=== PATIENT | male | born 1955 | race Caucasian/White ===

== ENCOUNTER 2017-03-15 04:06 | Inpatient (IN) | payer OTHER ==
--- NOTE | 2017-03-15 04:25 | C.PDOC ---
History Of Present Illness pt presents with abdominal pain, coffee ground emesis. state she has not had a bowel movement in 7 days. Speaking in complete sentences. no f/ Time Seen by Provider: 03/15/17 04:25 History Per: Patient History/Exam Limitations: no limitations Onset/Duration Of Symptoms: Days (7) Current Symptoms Are (Timing): Worse Number Of Bleeding Episodes: Unknown Amount of Blood Loss: Medium Severity: Severe Pain Scale Rating Of: 8 Quality Of Discomfort: Dull, Aching, Cramping Associated Symptoms: Nausea, Vomiting, Coffee Ground material Modifying Factors: None Recent travel outside of the [place]: No Additional History Per: Family Past Medical History Reviewed: Historical Data, Nursing Documentation, Vital Signs Vital Signs: Last Vital Signs Temp 97.5 F L 03/15/17 04:25 Pulse 120 H 03/15/17 05:47 Resp 18 03/15/17 05:47 BP 151/102 H 03/15/17 05:47 Pulse Ox 98 03/15/17 05:47 Family History: States: No Known Family Hx - Social History Hx Alcohol Use: Yes Hx Substance Use: No - Immunization History Hx Tetanus Toxoid Vaccination: No Hx Influenza Vaccination: No Hx Pneumococcal Vaccination: No Review Of Systems Constitutional: Negative for: Fever, Chills Eyes: Positive for: Redness Cardiovascular: Negative for: Chest Pain Respiratory: Negative for: Shortness of Breath Gastrointestinal: Positive for: Nausea, Vomiting, Abdominal Pain Genitourinary: Negative for: Dysuria Musculoskeletal: Negative for: Back Pain Skin: Negative for: Rash Neurological: Negative for: Weakness Psych: Positive for: Anxiety Physical Exam - Physical Exam Appears: In Acute Distress Skin: Warm, Dry, Pale Head: Normacephalic Eye(s): bilateral: Other (erythematous conjunctiva) Oral Mucosa: Dry Neck: Supple Chest: Symmetrical Cardiovascular: Rhythm Regular (tachy) Respiratory: No Rales, No Rhonchi, No Wheezing Gastrointestinal/Abdominal: Bowel Sounds (tympanic to percussion), Tenderness, Distention, No Guarding, No Rebound, Other (midline old healed surgical scar) Back: Normal Inspection Extremity: Normal ROM Extremity: Bilateral: Atraumatic Pulses: Left Dorsalis Pedis: Normal, Right Dorsalis Pedis: Normal Neurological/Psych: Oriented x3, Normal Speech, Normal Cognition Gait: Steady ED Course And Treatment - Laboratory Results Result Diagrams: 03/15/17 04:47 03/15/17 04:47 ECG: Interpreted By Me, Viewed By Me ECG Rhythm: Sinus Tachycardia (127), Nonspecific Changes O2 Sat by Pulse Oximetry: 97 Pulse Ox Interpretation: Normal - Radiology CXR: Interpreted by Me, Viewed By Me Progress Note: spoke with dr martniez - icu-will come and see the pt. spoke with residential property tax appraiser - will come and see the pt Critical Care Time - Critical Care Note Total Time (in mins): 30 Documented critical care: time excludes all time spent performing seperately billable procedures. Disposition Discussed With DrDionisio: Ramos Gomez Comment: accepted the pt on his service and took over the care at 6:20 AM Doctor Will See Patient In The: ED Counseled Patient/Family Regarding: Studies Performed, Diagnosis - Disposition Disposition: HOSPITALIZED Disposition Time: 04:25 Condition: CRITICAL - POA Present On Arrival: None - Clinical Impression Clinical Impression: Gastrointestinal hemorrhage, Abdominal pain, Metastatic colon cancer to liver, SBO (small bowel obstruction) Decision To Admit - . Patient Diagnosis: Gastrointestinal hemorrhage, Abdominal pain
[2017-03-15] MEDS ORDERED: Pantoprazole 80 MG in Sodium Chloride 0.9% 100 ML IV STA (04:26)
[2017-03-15] MEDS ORDERED: Sodium Chloride 0.9% 1,000 ML IV ONE (04:26)
[2017-03-15 04:27] VITALS: BMI 32.6
[2017-03-15] MEDS ORDERED: Sodium Chloride 0.9% 1,000 ML ONE (04:35)
[2017-03-15] MEDS ORDERED: Sodium Chloride 0.9% 2,000 ML IV ONE (04:36)
[2017-03-15 04:53] LABS: BASO # 0.1 K/uL (0.0-0.2); BASO % 0.3 % (0.0-2.0); HEMOGLOBIN 15.1 g/dL (12.0-18.0); LYMPH # 2.1 K/uL (1.0-4.3); LYMPH % 8.8 % (20.0-40.0); MEAN CELL VOLUME 73.8 fL (80.0-94.0); MEAN CORPUSCULAR HEMOGLOBIN 23.8 pg (27.0-31.0); MEAN CORPUSCULAR HGB CONC 32.3 g/dL (33.0-37.0); MONO # 2.1 K/uL (0.0-0.8); MONO % 9.1 % (0.0-10.0); NEUT # 19.2 K/uL (1.8-7.0); NEUT % 81.8 % (50.0-75.0); NRBC % 0.1 % (0.0-2.0); PLATELET COUNT 489 K/uL (130-400); RBC 6.33 Mil/uL (4.40-5.90); RED CELL DISTRIBUTION WIDTH 17.7 % (11.5-14.5); WHITE BLOOD COUNT 23.5 K/uL (4.8-10.8)
[2017-03-15 04:56] LABS: INR 1.2; PROTHROMBIN TIME 13.9 SECONDS (9.7-12.2)
[2017-03-15 05:02] LABS: ALT/SGPT 51 U/L (21-72); AST/SGOT 67 U/L (17-59); BLOOD UREA NITROGEN 35 mg/dL (9-20); CALCIUM 9.1 mg/dl (8.6-10.4); GFR AFRICAN-AMERICAN > 60; GFR NON-AFRICAN AMERICAN > 60
[2017-03-15 05:07] LABS: ALB/GLOB RATIO 0.8 (1.0-2.1)
[2017-03-15] MEDS ORDERED: Pantoprazole 80 MG in Sodium Chloride 0.9% 100 ML IVP SCH (05:30)
[2017-03-15] MEDS ORDERED: Iodixanol 320 MG/ML 100 ML BOTTLE IV ONE (05:34)
[2017-03-15 05:38] LABS: BANDS 9 % (0-2); LYMPHOCYTE 9 % (20-40); MONOCYTE 9 % (0-10); NEUTROPHIL 73 % (50-75); PLATELET ESTIMATE SLIGHTLY INCREASED (NORMAL); TOTAL CELLS COUNTED 100
[2017-03-15 05:39] LABS: ANISOCYTOSIS SLIGHT; TOXIC GRANULATION PRESENT
[2017-03-15 05:39] LABS: VENOUS BLOOD GAS BASE EXCESS 4.8 mmol/L (0.0-2.0); VENOUS BLOOD GAS PCO2 45 mmHg (40-60); VENOUS BLOOD GAS PO2 25 mm/Hg (30-55); VENOUS BLOOD PH 7.43 (7.32-7.43)
[2017-03-15] MEDS ORDERED: Ciprofloxacin 400mg/200ml D5W 400 MG/200 ML BAG IVPB STA (05:42)
[2017-03-15] MEDS ORDERED: metroNIDAZOLE IV 500 mg/100 ml 500 MG/100 ML BAG IVPB SCH (05:45)
[2017-03-15] MEDS ORDERED: metroNIDAZOLE IV 500 mg/100 ml 500 MG/100 ML BAG IVPB STA (05:58)
--- NOTE | 2017-03-15 06:42 | CP.PCM.CON ---
History of Present Illness - History of Present Illness History of Present Illness: 62 M with h/o back injury fall, chronic weakness secondary to fall, abdominal surgery, s/p ivc filter, h/o glaucoma, h/o skin grafting, patient has chronic constipation, but last 2 wks worsened abdominal distension, vomiting small amount 1 wk, no bm or gas x 1wk, the vomiting turned black this morning and hence presented to the ER. Black vomit including ED NG suction about 500-600ml. Hypertensive, tachycardic in ER in 130s improved with ivf, WBC 22K, maintained hemoglobin 15, but total prot of 9 suggesting hemoconcentration. ABD/Pelvis CT done just now reviewed by me shows, obstruction at lower descending colon, with distended rest of colon and small bowel, lives shows multiple lesions suggesting mets, and lung shows multiple nodules suggesting mets as well, pending radiology report. PMH as above Allergies mentioned PCN in the childhood but has got pcn adult roth with no reaction Social live with , unemployed, denies alcohol, drugs, smoking Meds for glaucoma Family history not contributory. Review of Systems - Review of Systems All systems: reviewed and no additional remarkable complaints except (HPI) Past Patient History - Past Social History Smoking Status: Never Smoked Alcohol: None Home Situation {Lives}: With Family Domestic Violence: Negative - HEENT Hx Glaucoma: Yes - PSYCHIATRIC Hx Substance Use: No - SURGICAL HISTORY Hx Surgeries: Yes (SEE COMMENT) Hx Orthopedic Surgery: Yes (BILAT WRIST) Other/Comment: left knee degloving, exploratory lap - ANESTHESIA Hx Anesthesia: Yes Hx Anesthesia Reactions: No Hx Malignant Hyperthermia: No Meds Allergies/Adverse Reactions: Allergies Allergy/AdvReac Type Severity Reaction Status Date / Time Penicillins Allergy RASH Verified 03/15/17 04:29 - Medications Medications: Current Medications Pantoprazole Sodium 80 mg/ (Sodium Chloride) 100 mls @ 10 mls/hr IVP .Q10H MARC PRN Reason: 8 MG/HR Last Admin: 03/15/17 05:56 Dose: 10 mls/hr Ciprofloxacin (Cipro 400mg/200ml Dsw) 400 mg in 200 mls @ 133.333 mls/hr IVPB STAT STA Stop: 03/15/17 07:11 Metronidazole (Flagyl) 500 mg in 100 mls @ 100 mls/hr IVPB STAT STA Stop: 03/15/17 06:57 Last Admin: 03/15/17 06:17 Dose: 100 mls/hr Physical Exam - Additional Findings Additional findings: * HEENT UVALDO, ng tube with black liquid * Neck supple * Chest rales few and ronchi in the bases * PA distended midline scar, nontender, bs minimal * Ext no edema * Skin normal turgor * [employer]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 oriented x3 no fnd Results - Vital Signs Recent Vital Signs: Last Vital Signs Temp 97.5 F L 03/15/17 04:25 Pulse 120 H 03/15/17 05:47 Resp 18 03/15/17 05:47 BP 151/102 H 03/15/17 05:47 Pulse Ox 98 03/15/17 05:47 - Labs Result Diagrams: 03/15/17 04:47 03/15/17 04:47 Labs: Laboratory Results - last 24 hr 03/15/17 03/15/17 03/15/17 04:47 04:47 04:47 WBC 23.5 H RBC 6.33 H Hgb 15.1 Hct 46.7 MCV 73.8 L MCH 23.8 L MCHC 32.3 L RDW 17.7 H Plt Count 489 H MPV 8.0 Neut % (Auto) 81.8 H Lymph % (Auto) 8.8 L [place] % (Auto) 9.1 Eos % (Auto) 0.0 Baso % (Auto) 0.3 Neut # 19.2 H Lymph # 2.1 [place] # 2.1 H Eos # 0.0 Baso # 0.1 Neutrophils % (Manual) 73 Band Neutrophils % 9 H Lymphocytes % (Manual) 9 L Monocytes % (Manual) 9 Toxic Granulation Present Platelet Estimate Slightly increased H Anisocytosis (manual) Slight PT 13.9 H INR 1.2 APTT 38 H pO2 VBG pH VBG pCO2 VBG HCO3 VBG Total CO2 VBG O2 Sat (Calc) VBG Base Excess VBG Potassium Glucose Lactate Sodium 133 Potassium 3.8 Chloride 91 L Carbon Dioxide 27 Anion Gap 19 BUN 35 H Creatinine 1.0 Est GFR ( Amer) > 60 Est GFR (Non-Af Amer) > 60 Random Glucose 158 H Calcium 9.1 Total Bilirubin 1.0 AST 67 H ALT 51 Alkaline Phosphatase 344 H Total Protein 9.0 H Albumin 4.0 Globulin 5.0 H Albumin/Globulin Ratio 0.8 L Venous Blood Potassium Gastric Occult Blood 03/15/17 03/15/17 05:21 05:35 WBC RBC Hgb Hct MCV MCH MCHC RDW Plt Count MPV Neut % (Auto) Lymph % (Auto) [place] % (Auto) Eos % (Auto) Baso % (Auto) Neut # Lymph # [place] # Eos # Baso # Neutrophils % (Manual) Band Neutrophils % Lymphocytes % (Manual) Monocytes % (Manual) Toxic Granulation Platelet Estimate Anisocytosis (manual) PT INR APTT pO2 25 L VBG pH 7.43 VBG pCO2 45 VBG HCO3 27.3 VBG Total CO2 31.3 H VBG O2 Sat (Calc) 46.8 VBG Base Excess 4.8 H VBG Potassium 4.3 Glucose 105 Lactate 3.8 H Sodium 139.0 Potassium Chloride 103.0 Carbon Dioxide Anion Gap BUN Creatinine Est GFR ( Amer) Est GFR (Non-Af Amer) Random Glucose Calcium Total Bilirubin AST ALT Alkaline Phosphatase Total Protein Albumin Globulin Albumin/Globulin Ratio Venous Blood Potassium 4.3 Gastric Occult Blood Positive H Assessment & Plan - Assessment and Plan (Free Text) Assessment: * Obstructing descending colon mass, with mets to liver, probable lung * Suspected UGI bleeding, black not fresh * H/o abd surg * S/p IVC filter * Pending report from radiology Plan: * PPI, NG suction * Surgery will probably need diverting colostomy, biospy if possible of mass, ? liver * IVF * Empiric abx * Hematology, GI consult * DVT prophylaxis with scd due to UGI bleeding. * See orders for detail.
[2017-03-15] MEDS: Potassium Ch 20mEq in D5W 1,000 ML IV SCH ×3 (07:05→22:54)
--- NOTE | 2017-03-15 07:06 | CT ---
EXAM: CT Abdomen and Pelvis With Intravenous Contrast CLINICAL HISTORY: 62 years old, male; Pain; Abdominal pain and other: Abd pain, distension, constipation , ugi bleed; Generalized TECHNIQUE: Axial computed tomography images of the abdomen and pelvis with intravenous contrast. All CT scans at this facility use one or more dose reduction techniques, viz.: automated exposure control; ma/kV adjustment per patient size (including targeted exams where dose is matched to indication; i.e. head); or iterative reconstruction technique. 735 images are submitted. Coronal and sagittal reformatted images were created and reviewed. CONTRAST: 100 mL of [id number] administered intravenously. COMPARISON: No relevant prior studies available. FINDINGS: Lower thorax: There are bilateral numerous pulmonary nodules representing hematogenous spread of infection/fungal infection or metastasis. There are small areas of ill-defined patchy parenchymal infiltrates and confluent consolidation within both the lungs. Correlation with patient's pulmonary history is recommended. Left prevascular paratracheal and right more than left hilar lymph nodes. These findings can represent infectious inflammatory or metastatic etiology. There is feeding tube within the thick walled esophagus and moderate hiatal hernia.Correlation with clinical data is recommended to evaluate for esophagitis/gastritis. ABDOMEN: Liver: Heterogeneous appearance to the liver with multiple ill-defined masses suspicious for hepatic metastasis versus hepatocellular carcinoma. Gallbladder and bile ducts: Unremarkable. No ductal dilation. Pancreas: Unremarkable. No mass. No ductal dilation. Spleen: Unremarkable. No splenomegaly. Adrenals: Unremarkable. No mass. Kidneys and ureters: There are renal hypodensities too small to characterize. No hydronephrosis. Stomach and bowel: There are dilated fluid filled small bowel loops with air fluid level measuring 3.8 cm with mesenteric fluid with relative change in caliber of the small bowel in the midabdomen representing partial obstruction versus ileus or enteritis. Correlation with patient's obstructive symptoms is recommended. There is a large amount of stool in the colon with colonic wall thickening and left lower quadrant colonic mass representing nonspecific colitis or stool related colitis. There is stool like appearance to the distal small bowel. This may represent slow transit. Nonspecific colonic thickening with diverticulosis. Appendix: Normal appendix. PELVIS: Bladder: Bladder distention. Correlation with patient's voiding status is recommended. Reproductive: Enlarged prostate gland with calcification. ABDOMEN and PELVIS: Intraperitoneal space: Unremarkable. No free air. No significant fluid collection. Bones/joints: Left femoral intramedullary catarina and screw fixation. The left femoral hardware is incompletely visualized. There are anterior flowing osteophytes bridging more than 4 vertebral bodies suggestive of dish. No acute fracture. No dislocation. Soft tissues: Bilateral inguinal herniation of fat. Vasculature: Infrarenal IVC filter. No abdominal aortic aneurysm. Lymph nodes: There is left lower quadrant colonic hyperdense mass measuring 4.6 x 5.1 x 7.0 cm suspicious for colon cancer with partial or early colonic obstruction. There are paracolic mesenteric soft tissue density representing omental infiltration with carcinomatosis versus lymph nodes. There is left iliac chain lymph node seen on image 73 series 601 and on image 83 series 2 measuring 2.6 cm x 3.2 cm suspicious for metastatic lymph node. Tubes, lines and devices: The feeding tube is in the gastric fundus. IMPRESSION: 1. There is left lower quadrant colonic hyperdense mass measuring 4.6 x 5.1 x 7.0 cm suspicious for colon cancer with partial or early colonic obstruction. There are paracolic mesenteric soft tissue density representing omental infiltration with carcinomatosis versus lymph nodes. 2. There are dilated fluid filled small bowel loops with air fluid level measuring 3.8 cm with mesenteric fluid with relative change in caliber of the small bowel in the midabdomen representing partial obstruction versus ileus or enteritis. Correlation with patient's obstructive symptoms is recommended. 3. There is a large amount of stool in the colon with colonic wall thickening and left lower quadrant colonic mass representing nonspecific colitis or stool related colitis. 4. There are bilateral numerous pulmonary nodules representing hematogenous spread of infection/fungal infection or metastasis. There are small areas of ill-defined patchy parenchymal infiltrates and confluent consolidation within both the lungs. Correlation with patient's pulmonary history is recommended. 5. Left prevascular paratracheal and right lung and left hilar lymph nodes. These findings can represent infectious inflammatory or metastatic etiology. 6. Heterogeneous appearance to the liver with multiple ill-defined masses suspicious for hepatic metastasis versus hepatocellular carcinoma. 7. There is feeding tube within the thick walled esophagus and moderate hiatal hernia.Correlation with clinical data is recommended to evaluate for esophagitis/gastritis. 8. There is left iliac chain lymph node seen on image 73 series 601 and on image 83 series 2 measuring 2.6 cm x 3.2 cm suspicious for metastatic lymph node. 9. Left prevascular paratracheal and right more than left hilar lymph nodes. These findings can represent infectious inflammatory or metastatic etiology. Correlation with internal medicine oncology history evaluation and further workup or followup as recommended by patient's clinical data. CRITICAL RESULT: The study was personally discussed on the telephone with [Chapo Hopkins] on 03/15/2017 7:03 AM EST. The results were understood and acknowledged.
--- NOTE | 2017-03-15 07:34 | CP.PCM.CON ---
<Jordyn Pereira - Last Filed: 03/15/17 10:19> History of Present Illness - History of Present Illness History of Present Illness: GI consult note for Dr Esparza's service. Reason for consult: Gi bleeding, colon mass. Patient is a 62 y/o with PMHx of major abdominal surgery due to accident presenting with vomiting for 3 days. Patient states for over a year, he noticed changes in caliber of the stool. Patient states he was having 3-4 bowel movements a day, however small amounts of them. Patient's has been giving him enema with no significant improvement. Patient states he feels incomplete after bowel movement, last bowel movement was today, when he noticed small red tinged blood in the stool and when he wiped. Prior to this morning his bowel movement was a week ago. Patient states for months he has been spitting alot, then he had hiccups for 3 days, then on Tuesday he noticed black vomitus. Denies hemoptysis. Patient denies abdominal pain. States his abdomen has always been big, thinks he has been loosing weight without trying, lost about 10 lbs in a year, with lower extremities atrophy. Denies nausea, fever or chills. Admits to dyspnea or exertion. Admits to generalized weakness. Denies prior history of colonoscopies or endoscopies. In the Ed patient had CT abdomen and pelvis revealing left lower quadrant colonic hyperdense mass measuring 4.6 x 5.1 x 7.0 cm suspicious for colon cancer with partial or early colonic obstruction, omental infiltration, dilated fluid filled small bowel loops with air fluid level measuring 3.8 cm with mesenteric fluid with relative change in caliber of the small bowel in the midabdomen representing partial obstruction versus ileus or enteritis. large amount of stool in the colon with colonic wall thickening and left lower quadrant colonic mass representing nonspecific colitis or stool related colitis. There are bilateral numerous pulmonary nodules representing hematogenous spread of infection/fungal infection or metastasis. There are small areas of ill-defined patchy parenchymal infiltrates and confluent consolidation within both the lungs. Left prevascular paratracheal and right lung and left hilar lymph nodes. Heterogeneous appearance to the liver with multiple ill-defined masses suspicious for hepatic metastasis versus hepatocellular carcinoma. Thick walled esophagus and moderate hiatal hernia. Hemoglobin was 15.1, positive fecal occult blood test, bun of 35. Ngt was inserted revealing coffee ground emesis, with only 50cc drained. PMHx: back injury fall, chronic weakness secondary to fall, h/o glaucoma. PSHx: Abdominal surgery s/p ivc filter, hip surgery, h/o skin grafting. FMHx: Denies family history of any cancers. Allergies: pnc Social: smoked briefly 15 years ago, former alcohol abuse, quit 2 years ago, former marijuana abuse, no recent use. 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 Home meds: Eye drops. Review of Systems - Review of Systems All systems: reviewed and no additional remarkable complaints except Review of Systems: 12 point ROS reviewed.except as stated in HPI. Past Patient History - Tetanus Immunizations Tetanus Immunization: Unknown - Past Social History Smoking Status: Former Smoker Alcohol: Other (Former alcohol abuse) Drugs: Cannabis (former ) Home Situation {Lives}: With Family Domestic Violence: Negative - HEENT Hx Glaucoma: Yes - PSYCHIATRIC Hx Substance Use: No - SURGICAL HISTORY Hx Surgeries: Yes (SEE COMMENT) Hx Orthopedic Surgery: Yes (BILAT WRIST) Other/Comment: left knee degloving, exploratory lap - ANESTHESIA Hx Anesthesia: Yes Hx Anesthesia Reactions: No Hx Malignant Hyperthermia: No Meds Allergies/Adverse Reactions: Allergies Allergy/AdvReac Type Severity Reaction Status Date / Time Penicillins Allergy RASH Verified 03/15/17 04:29 - Medications Medications: Current Medications Pantoprazole Sodium 80 mg/ (Sodium Chloride) 100 mls @ 10 mls/hr IVP .Q10H [facility] PRN Reason: 8 MG/HR Last Admin: 03/15/17 05:56 Dose: 10 mls/hr Ceftriaxone Sodium 1 gm/ (Sodium Chloride) 100 mls @ 100 mls/hr IVPB DAILY [facility] Potassium Chloride/Dextrose (Potassium Chl 20 Meq In D5w) 1,000 mls @ 125 mls/ hr IV .Q8H [facility] Last Admin: 03/15/17 07:05 Dose: 125 mls/hr Metronidazole (Flagyl) 500 mg in 100 mls @ 100 mls/hr IVPB Q8 [facility] Physical Exam - Constitutional Appears: No Acute Distress - Head Exam Head Exam: ATRAUMATIC, NORMAL INSPECTION, NORMOCEPHALIC - Eye Exam Eye Exam: EOMI, Normal appearance, PERRL. absent: Scleral icterus Pupil Exam: NORMAL ACCOMODATION - ENT Exam ENT Exam: Mucous Membranes Moist, Normal Exam - Neck Exam Neck exam: Positive for: Normal Inspection. Negative for: Lymphadenopathy, Tenderness - Respiratory Exam Respiratory Exam: Decreased Breath Sounds (at the bases), Prolonged Expiratory Phase, NORMAL BREATHING PATTERN. absent: Rales, Rhonchi, Wheezes, Respiratory Distress, Stridor - Cardiovascular Exam Cardiovascular Exam: Tachycardia, REGULAR RHYTHM, RRR, +S1, +S2. absent: Gallop , JVD, Systolic Murmur - GI/Abdominal Exam GI & Abdominal Exam: Diminished Bowel Sounds, Distended, Firm, Mass, Organomegaly, Rigid. absent: Guarding, Rebound, Tenderness Additional comments: + old surgical scar. - Rectal Exam Rectal Exam: NORMAL INSPECTION. absent: Black Stool, Bloody Stool, Hemorrhoids Additional comments: No hemorrhoids or fissures. - Extremities Exam Extremities exam: Positive for: normal inspection. Negative for: pedal edema, tenderness - Back Exam Back exam: NORMAL INSPECTION - Neurological Exam Neurological exam: Alert, Oriented x3, Reflexes Normal - Psychiatric Exam Psychiatric exam: Normal Affect, Normal Mood - Skin Skin Exam: Dry, Warm Results - Vital Signs Recent Vital Signs: Last Vital Signs Temp 98 F 03/15/17 06:55 Pulse 119 H 03/15/17 06:55 Resp 18 03/15/17 06:55 BP 163/90 H 03/15/17 06:55 Pulse Ox 98 03/15/17 06:55 - Labs Result Diagrams: 03/15/17 04:47 03/15/17 04:47 Labs: Laboratory Results - last 24 hr 03/15/17 03/15/17 03/15/17 04:47 04:47 04:47 WBC 23.5 H RBC 6.33 H Hgb 15.1 Hct 46.7 MCV 73.8 L MCH 23.8 L MCHC 32.3 L RDW 17.7 H Plt Count 489 H MPV 8.0 Neut % (Auto) 81.8 H Lymph % (Auto) 8.8 L [place] % (Auto) 9.1 Eos % (Auto) 0.0 Baso % (Auto) 0.3 Neut # 19.2 H Lymph # 2.1 [place] # 2.1 H Eos # 0.0 Baso # 0.1 Neutrophils % (Manual) 73 Band Neutrophils % 9 H Lymphocytes % (Manual) 9 L Monocytes % (Manual) 9 Toxic Granulation Present Platelet Estimate Slightly increased H Anisocytosis (manual) Slight PT 13.9 H INR 1.2 APTT 38 H pO2 VBG pH VBG pCO2 VBG HCO3 VBG Total CO2 VBG O2 Sat (Calc) VBG Base Excess VBG Potassium Glucose Lactate Sodium 133 Potassium 3.8 Chloride 91 L Carbon Dioxide 27 Anion Gap 19 BUN 35 H Creatinine 1.0 Est GFR ( Amer) > 60 Est GFR (Non-Af Amer) > 60 Random Glucose 158 H Calcium 9.1 Total Bilirubin 1.0 AST 67 H ALT 51 Alkaline Phosphatase 344 H Total Protein 9.0 H Albumin 4.0 Globulin 5.0 H Albumin/Globulin Ratio 0.8 L Venous Blood Potassium Gastric Occult Blood Blood Type Antibody Screen 03/15/17 03/15/17 03/15/17 04:57 05:21 05:35 WBC RBC Hgb Hct MCV MCH MCHC RDW Plt Count MPV Neut % (Auto) Lymph % (Auto) [place] % (Auto) Eos % (Auto) Baso % (Auto) Neut # Lymph # [place] # Eos # Baso # Neutrophils % (Manual) Band Neutrophils % Lymphocytes % (Manual) Monocytes % (Manual) Toxic Granulation Platelet Estimate Anisocytosis (manual) PT INR APTT pO2 25 L VBG pH 7.43 VBG pCO2 45 VBG HCO3 27.3 VBG Total CO2 31.3 H VBG O2 Sat (Calc) 46.8 VBG Base Excess 4.8 H VBG Potassium 4.3 Glucose 105 Lactate 3.8 H Sodium 139.0 Potassium Chloride 103.0 Carbon Dioxide Anion Gap BUN Creatinine Est GFR ( Amer) Est GFR (Non-Af Amer) Random Glucose Calcium Total Bilirubin AST ALT Alkaline Phosphatase Total Protein Albumin Globulin Albumin/Globulin Ratio Venous Blood Potassium 4.3 Gastric Occult Blood Positive H Blood Type O POSITIVE Antibody Screen Negative Assessment & Plan - Assessment and Plan (Free Text) Assessment: Patient is a 62 y/o Male with PMH of abdominal surgery due to accident presenting with coffee ground emesis for 3 days along with unintentional weight loss and constipation. CT revealing left lower quadrant colonic hyperdense mass , with colonic obstruction, dilated small bowel loop with air fluid level, metastatic lesions to the liver, hyperdensity in the lung concerning for metastasis versus infectious etiology. Gi is consulted for evaluation. 1) Coffee ground emesis likely due to obstruction versus gastritis 2) Constipation likely due to colonic obstruction from the colonic mass 3) Left lower quadrant colonic mass concerning for carcinoma with metastasis to the liver 4) SIRS with lactic acidosis r/o sepsis versus ischemic bowel 5) R/O pneumonia versus lung met 6) Mild transaminitis likely due to liver lesions Plan: - Continue with NGT decompression - Continue with ppi drip - Keep NPO - Fluid resuscitation - Trend H/H - Sepsis work up- blood cultures, urine cultures - Consider broad spectrum antibiotics for possible SIRS/Sepsis - Surgery was consulted - Plan for sigmoidoscopy tomorrow for biopsy of the mass. Patient seen, examined and case discussed extensively Gi fellows and Dr Esparza. - Date & Time Date: 03/15/17 Time: 08:40 <Carlo Esparza Y - Last Filed: 03/15/17 15:04> Meds - Medications Medications: Current Medications Heparin Sodium (Porcine) (Heparin) 5,000 units SC Q12 [facility] Last Admin: 03/15/17 10:44 Dose: 5,000 units Ceftriaxone Sodium 1 gm/ (Sodium Chloride) 100 mls @ 100 mls/hr IVPB DAILY [facility] Last Admin: 03/15/17 10:44 Dose: 100 mls/hr Potassium Chloride/Dextrose (Potassium Chl 20 Meq In D5w) 1,000 mls @ 125 mls/ hr IV .Q8H [facility] Last Admin: 03/15/17 07:05 Dose: 125 mls/hr Metronidazole (Flagyl) 500 mg in 100 mls @ 100 mls/hr IVPB Q8 [facility] Last Admin: 03/15/17 14:30 Dose: 100 mls/hr Pantoprazole Sodium 80 mg/ (Sodium Chloride) 100 mls @ 10 mls/hr IV .Q10H [facility] PRN Reason: 8 MG/HR Ondansetron HCl (Zofran Inj) 4 mg IVP Q4H PRN PRN Reason: Nausea/Vomiting Results - Vital Signs Recent Vital Signs: Last Vital Signs Temp 98.2 F 03/15/17 12:00 Pulse 111 H 03/15/17 14:32 Resp 21 03/15/17 14:32 BP 150/92 H 03/15/17 14:32 Pulse Ox 96 03/15/17 14:32 - Labs Result Diagrams: 03/15/17 04:47 03/15/17 04:47 Labs: Laboratory Results - last 24 hr 03/15/17 03/15/17 03/15/17 04:47 04:47 04:47 WBC 23.5 H RBC 6.33 H Hgb 15.1 Hct 46.7 MCV 73.8 L MCH 23.8 L MCHC 32.3 L RDW 17.7 H Plt Count 489 H MPV 8.0 Neut % (Auto) 81.8 H Lymph % (Auto) 8.8 L [place] % (Auto) 9.1 Eos % (Auto) 0.0 Baso % (Auto) 0.3 Neut # 19.2 H Lymph # 2.1 [place] # 2.1 H Eos # 0.0 Baso # 0.1 Neutrophils % (Manual) 73 Band Neutrophils % 9 H Lymphocytes % (Manual) 9 L Monocytes % (Manual) 9 Toxic Granulation Present Platelet Estimate Slightly increased H Anisocytosis (manual) Slight PT 13.9 H INR 1.2 APTT 38 H pO2 VBG pH VBG pCO2 VBG HCO3 VBG Total CO2 VBG O2 Sat (Calc) VBG Base Excess VBG Potassium Glucose Lactate Sodium 133 Potassium 3.8 Chloride 91 L Carbon Dioxide 27 Anion Gap 19 BUN 35 H Creatinine 1.0 Est GFR ( Amer) > 60 Est GFR (Non-Af Amer) > 60 Random Glucose 158 H Lactic Acid Calcium 9.1 Total Bilirubin 1.0 AST 67 H ALT 51 Alkaline Phosphatase 344 H Total Protein 9.0 H Albumin 4.0 Globulin 5.0 H Albumin/Globulin Ratio 0.8 L Venous Blood Potassium Gastric Occult Blood Blood Type Antibody Screen 03/15/17 03/15/17 03/15/17 04:57 05:21 05:35 WBC RBC Hgb Hct MCV MCH MCHC RDW Plt Count MPV Neut % (Auto) Lymph % (Auto) [place] % (Auto) Eos % (Auto) Baso % (Auto) Neut # Lymph # [place] # Eos # Baso # Neutrophils % (Manual) Band Neutrophils % Lymphocytes % (Manual) Monocytes % (Manual) Toxic Granulation Platelet Estimate Anisocytosis (manual) PT INR APTT pO2 25 L VBG pH 7.43 VBG pCO2 45 VBG HCO3 27.3 VBG Total CO2 31.3 H VBG O2 Sat (Calc) 46.8 VBG Base Excess 4.8 H VBG Potassium 4.3 Glucose 105 Lactate 3.8 H Sodium 139.0 Potassium Chloride 103.0 Carbon Dioxide Anion Gap BUN Creatinine Est GFR ( Amer) Est GFR (Non-Af Amer) Random Glucose Lactic Acid Calcium Total Bilirubin AST ALT Alkaline Phosphatase Total Protein Albumin Globulin Albumin/Globulin Ratio Venous Blood Potassium 4.3 Gastric Occult Blood Positive H Blood Type O POSITIVE Antibody Screen Negative 03/15/17 03/15/17 10:06 10:08 WBC RBC Hgb Hct MCV MCH MCHC RDW Plt Count MPV Neut % (Auto) Lymph % (Auto) [place] % (Auto) Eos % (Auto) Baso % (Auto) Neut # Lymph # [place] # Eos # Baso # Neutrophils % (Manual) Band Neutrophils % Lymphocytes % (Manual) Monocytes % (Manual) Toxic Granulation Platelet Estimate Anisocytosis (manual) PT INR APTT 29 D pO2 VBG pH VBG pCO2 VBG HCO3 VBG Total CO2 VBG O2 Sat (Calc) VBG Base Excess VBG Potassium Glucose Lactate Sodium Potassium Chloride Carbon Dioxide Anion Gap BUN Creatinine Est GFR ( Amer) Est GFR (Non-Af Amer) Random Glucose Lactic Acid 2.1 Calcium Total Bilirubin AST ALT Alkaline Phosphatase Total Protein Albumin Globulin Albumin/Globulin Ratio Venous Blood Potassium Gastric Occult Blood Blood Type Antibody Screen Attending/Attestation - Attestation I have personally seen and examined this patient.: Yes I have fully participated in the care of the patient.: Yes I have reviewed all pertinent clinical information: Yes Notes (Text): 03/15/17 14:53 I have seen and examined patient with GI fellow and behavioral medical director. Agree with above documentation with the following additions. In brief, this iis a 62 year old male without significant past medical history who presents to hospital with complaint of vomiting for the past 2 days. He describes dark colored emesis associated with progressive abdominal distention and worsening constipation over the past one week. He has not had an adequate bowel movement for one week despite enema use at home. He also reports having a 10 pound unintentional weight loss over the past one year. No recurrent vomiting since arrival to hospital. No prior endoscopic evaluation. Vomiting Weight loss, unexplained Transaminitis CT imaging reviewed by me showing distal left sided colonic mass lesion along with hepatic lesions, pulmonary nodules suggestive of metastatic disease, dilated small bowel loops with air/fluid levels consistent with small bowel obstruction - NPO - Continue to monitor NGT output - Continue with antibiotic therapy - Follow up surgical recommendations - Will plan for sigmoidoscopy tomorrow to obtain tissue diagnosis for suspected colon cancer with obstructive features. Tap water enema tomorrow AM prior to procedure. Overall patient prognosis is poor given apparent widespread disease , will continue to monitor clinical course.
--- NOTE | 2017-03-15 07:51 | RAD ---
PROCEDURE: CHEST RADIOGRAPH, 1 VIEW HISTORY: GI Bleeding COMPARISON: None available. FINDINGS: LUNGS: No consolidation. Multiple bilateral pulmonary nodules 2 to 4 mm in size are suggested. Lung volumes are shallow PLEURA: No pneumothorax or pleural fluid seen. CARDIOVASCULAR: Normal heart size. . Mild central pulmonary venous congestion possible OSSEOUS STRUCTURES: Sick spondylosis VISUALIZED UPPER ABDOMEN: Normal. OTHER FINDINGS: NG tube inserted tip beyond inferior edge of stomach at least coursing past gastric cardia IMPRESSION: No consolidation. Multiple bilateral pulmonary nodules 2 to 4 mm in size are suggested. Consider CT chest imaging. Lung volumes are shallow Mild central pulmonary venous congestion possible. NG tube partial course appears normal
[2017-03-15] MEDS ORDERED: Dextrose 5%/Lactated Ringer's 1,000 ML IV SCH (09:15)
--- NOTE | 2017-03-15 09:25 | CP.PCM.HP ---
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 Vomiting started on Tuesday and he noticed black color vomitus this morning. He is constipated and didn't have bowel movement last one week.Lately he is having frequent small BM .Denies fever,denies abdominal pain.Lost about 10pounds last one year.Denies shortness of breath,denies chest pain.He denies abdominal distension. He states that his belly is always big.Used drink beer. In the ER CT abdomen and pelvis revealing left lower quadrant colonic hyperdense mass measuring 4.6 x 5.1 x 7.0 cm suspicious for colon cancer with partial or early colonic obstruction, omental infiltration, dilated fluid filled small bowel loops with air fluid level measuring 3.8 cm with mesenteric fluid with relative change in caliber of the small bowel in the midabdomen representing partial obstruction versus ileus or enteritis. large amount of stool in the colon with colonic wall thickening and left lower quadrant colonic mass representing nonspecific colitis or stool related colitis. There are bilateral numerous pulmonary nodules representing hematogenous spread of infection/fungal infection or metastasis. There are small areas of ill-defined patchy parenchymal infiltrates and confluent consolidation within both the lungs. Left prevascular paratracheal and right lung and left hilar lymph nodes. Heterogeneous appearance to the liver with multiple ill-defined masses suspicious for hepatic metastasis versus hepatocellular carcinoma. Thick walled esophagus and moderate hiatal hernia. In the ER noted positive fecal occult blood test, Ng was inserted revealing coffee ground emesis. His hemoglbin is 15 PMH -Glaucoma PSH.Exploratory lap 20years ago,left hip surgery,dvt and IVC filter,skin graft Allergies mentioned PCN in the childhood but has got pcn adult roth with no reaction Social live with , unemployed, denies alcohol, drugs, smoking Meds for glaucoma/[facility] [employer] Family history-father DM.no malignancy Present on Admission - Present on Admission Any Indicators Present on Admission: No Review of Systems - Constitutional Constitutional: Anorexia. absent: Chills, Fever - EENT Eyes: absent: Blurred Vision Nose/Mouth/Throat: absent: Dysphagia - Cardiovascular Cardiovascular: absent: Chest Pain, Dyspnea, Leg Edema, Palpitations - Respiratory Respiratory: absent: Dyspnea - Gastrointestinal Gastrointestinal: Constipation, Vomiting (dark color vomitus). absent: Abdominal Pain, Diarrhea - Genitourinary Genitourinary: absent: Difficulty Urinating - Musculoskeletal Musculoskeletal: absent: Abnormal Gait - Integumentary Integumentary: absent: Skin Ulcer - Neurological Neurological: Abnormal Gait (h/o abnormal gait due to left hip surgery). absent : Dizziness - Psychiatric Psychiatric: Change in Appetite Past Patient History - Past Medical History & Family History Past Medical History?: Yes - Past Social History Smoking Status: Never Smoked Alcohol: None Home Situation {Lives}: With Family Domestic Violence: Negative - CARDIAC Hx Cardiac Disorders: No - PULMONARY Hx Respiratory Disorders: No - NEUROLOGICAL Hx Neurological Disorder: No - HEENT Hx HEENT Problems: Yes Hx Glaucoma: Yes - RENAL Hx Chronic Kidney Disease: No - ENDOCRINE/METABOLIC Hx Endocrine Disorders: No - HEMATOLOGICAL/ONCOLOGICAL Hx Blood Disorders: No - INTEGUMENTARY Hx Dermatological Problems: No - MUSCULOSKELETAL/RHEUMATOLOGICAL Hx Falls: Yes (work accident) - GASTROINTESTINAL Hx Gastrointestinal Disorders: Yes Hx Constipation: Yes - GENITOURINARY/GYNECOLOGICAL Hx Genitourinary Disorders: No - PSYCHIATRIC Hx Psychophysiologic Disorder: Yes Hx Depression: Yes - SURGICAL HISTORY Hx Surgeries: Yes (SEE COMMENT) Hx Orthopedic Surgery: Yes (BILAT WRIST, right hip surgery s/p work accident) Other/Comment: left knee degloving, exploratory lap s/p work accident - ANESTHESIA Hx Anesthesia: Yes Hx Anesthesia Reactions: No Hx Malignant Hyperthermia: No Has any member of the family had a problem w/ anesthesia?: No Meds Allergies/Adverse Reactions: Allergies Allergy/AdvReac Type Severity Reaction Status Date / Time Penicillins Allergy RASH Verified 03/15/17 04:29 Physical Exam - Constitutional Appears: Non-toxic, No Acute Distress - Head Exam Head Exam: NORMAL INSPECTION - Eye Exam Eye Exam: Normal appearance - ENT Exam ENT Exam: Mucous Membranes Moist - Neck Exam Neck exam: Positive for: Normal Inspection - Respiratory Exam Respiratory Exam: Clear to Auscultation Bilateral - Cardiovascular Exam Cardiovascular Exam: REGULAR RHYTHM - GI/Abdominal Exam GI & Abdominal Exam: Distended. absent: Guarding, Normal Bowel Sounds, Rebound , Rigid - Rectal Exam Rectal Exam: Deferred (GI fellow did rectal exam-no blood/zita) - Extremities Exam Extremities exam: Positive for: full ROM - Back Exam Back exam: NORMAL INSPECTION - Neurological Exam Neurological exam: Alert, Oriented x3 - Psychiatric Exam Psychiatric exam: Flat Affect - Skin Skin Exam: Dry Results - Vital Signs Recent Vital Signs: Last Vital Signs Temp 98.0 F 03/15/17 08:03 Pulse 119 H 03/15/17 09:07 Resp 22 03/15/17 09:07 BP 137/104 H 03/15/17 09:07 Pulse Ox 92 L 03/15/17 09:07 - Labs Result Diagrams: 03/15/17 04:47 03/15/17 04:47 Labs: Laboratory Results - last 24 hr 03/15/17 03/15/17 03/15/17 04:47 04:47 04:47 WBC 23.5 H RBC 6.33 H Hgb 15.1 Hct 46.7 MCV 73.8 L MCH 23.8 L MCHC 32.3 L RDW 17.7 H Plt Count 489 H MPV 8.0 Neut % (Auto) 81.8 H Lymph % (Auto) 8.8 L [place] % (Auto) 9.1 Eos % (Auto) 0.0 Baso % (Auto) 0.3 Neut # 19.2 H Lymph # 2.1 [place] # 2.1 H Eos # 0.0 Baso # 0.1 Neutrophils % (Manual) 73 Band Neutrophils % 9 H Lymphocytes % (Manual) 9 L Monocytes % (Manual) 9 Toxic Granulation Present Platelet Estimate Slightly increased H Anisocytosis (manual) Slight PT 13.9 H INR 1.2 APTT 38 H pO2 VBG pH VBG pCO2 VBG HCO3 VBG Total CO2 VBG O2 Sat (Calc) VBG Base Excess VBG Potassium Glucose Lactate Sodium 133 Potassium 3.8 Chloride 91 L Carbon Dioxide 27 Anion Gap 19 BUN 35 H Creatinine 1.0 Est GFR ( Amer) > 60 Est GFR (Non-Af Amer) > 60 Random Glucose 158 H Calcium 9.1 Total Bilirubin 1.0 AST 67 H ALT 51 Alkaline Phosphatase 344 H Total Protein 9.0 H Albumin 4.0 Globulin 5.0 H Albumin/Globulin Ratio 0.8 L Venous Blood Potassium Gastric Occult Blood Blood Type Antibody Screen 03/15/17 03/15/17 03/15/17 04:57 05:21 05:35 WBC RBC Hgb Hct MCV MCH MCHC RDW Plt Count MPV Neut % (Auto) Lymph % (Auto) [place] % (Auto) Eos % (Auto) Baso % (Auto) Neut # Lymph # [place] # Eos # Baso # Neutrophils % (Manual) Band Neutrophils % Lymphocytes % (Manual) Monocytes % (Manual) Toxic Granulation Platelet Estimate Anisocytosis (manual) PT INR APTT pO2 25 L VBG pH 7.43 VBG pCO2 45 VBG HCO3 27.3 VBG Total CO2 31.3 H VBG O2 Sat (Calc) 46.8 VBG Base Excess 4.8 H VBG Potassium 4.3 Glucose 105 Lactate 3.8 H Sodium 139.0 Potassium Chloride 103.0 Carbon Dioxide Anion Gap BUN Creatinine Est GFR ( Amer) Est GFR (Non-Af Amer) Random Glucose Calcium Total Bilirubin AST ALT Alkaline Phosphatase Total Protein Albumin Globulin Albumin/Globulin Ratio Venous Blood Potassium 4.3 Gastric Occult Blood Positive H Blood Type O POSITIVE Antibody Screen Negative - EKG Data EKG Interpreted by: Myself - Imaging and Cardiology CT scan - abdomen Status: Report reviewed by me Assessment & Plan - Assessment and Plan (Free Text) Assessment: This is a 62 years old male came for coffee ground vomiting and constipation. CT abdomen showed Obstructing colon mass. Has liver and lung mass suspicious for malignancy. Plan: 1.Colon mass with obstruction NG tube decompression NPO and IV fluids Surgery consult Dr Steinberg GI consult DR Esparza d/w DR Esparaz planning for sigmoidoscopy and biopsy tomorrow 2. Coffee ground emesis NPO,protonix drip,type and screen done Monitor H/H,continue fluids 3.Leukocytosis continue cipro and flagyl follow cultures 4.DVT prophylaxis-SCDs GI prophylaxis-Protonix 5.Liver and lung mass likely metastatic ca Dr dumont/oncology consult
--- NOTE | 2017-03-15 11:49 | VASCLAB ---
PROCEDURE: Lower Extremity Venous Duplex Exam. HISTORY: Increased blood lactate levels PRIORS: None. TECHNIQUE: Bilateral common femoral, femoral, popliteal and posterior tibial, peroneal and great saphenous veins were evaluated. Flow was assessed with color Doppler, compressibility, assessment of phasic flow and augmentation response. Report prepared by DIA Chao FINDINGS: RIGHT: 1. Common Femoral Vein: 1.1. Compressibility - Fully compressible: Thrombus - None : Flow - Phasic: Augmentation -Normal: Reflux - None. 2. Femoral Vein: 2.1. Compressibility - Fully compressible: Thrombus - None : Flow - Phasic: Augmentation -Normal: Reflux - None. 3. Popliteal Vein: 3.1. Compressibility - Fully compressible: Thrombus - None : Flow - Phasic: Augmentation -Normal: Reflux - None. 4. Posterior Tibial Vein: 4.1. Compressibility - Fully compressible: Thrombus - None: Flow - Phasic: Augmentation -Normal: Reflux - None. 5. Peroneal Vein: 5.1. Compressibility - Fully compressible: Thrombus - None: Flow - Phasic: Augmentation -Normal: Reflux - None. 6. Great Saphenous Vein: 6.1. Compressibility - Fully compressible: Thrombus - None: Flow - Phasic: Augmentation - Normal: Reflux - None. LEFT: 1. Common Femoral Vein: 1.1. Compressibility - Fully compressible: Thrombus - None: Flow - Phasic: Augmentation -Normal: Reflux - None. 2. Femoral Vein: 2.1. Compressibility - Fully compressible: Thrombus - None: Flow - Phasic: Augmentation -Normal: Reflux - None. 3. Popliteal Vein: 3.1. Compressibility - Fully compressible: Thrombus - None : Flow - Phasic: Augmentation -Normal: Reflux - None. 4. Posterior Tibial Vein: 4.1. Compressibility - Fully compressible: Thrombus - None: Flow - Phasic: Augmentation -Normal: Reflux - None. 5. Peroneal Vein: 5.1. Compressibility - Fully compressible: Thrombus - None: Flow - Phasic: Augmentation -Normal: Reflux - None. 6. Great Saphenous Vein: 6.1. Compressibility - Fully compressible: Thrombus - None: Flow - Phasic: Augmentation - Normal: Reflux - None. OTHER FINDINGS: Right: None significant. Left: None significant. IMPRESSION: Right: No evidence of deep or superficial vein thrombosis of the right lower extremity. Normal valve function noted of the right side. Left: No evidence of deep or superficial vein thrombosis of the left lower extremity. Normal valve function noted of the left side.
[2017-03-15] MEDS: metroNIDAZOLE IV 500 mg/100 ml 500 MG/100 ML BAG IVPB SCH ×2 (14:30→21:55)
--- NOTE | 2017-03-15 15:28 | CP.PCM.CON ---
<AmandaReema - Last Filed: 03/15/17 15:31> History of Present Illness - History of Present Illness History of Present Illness: Heme/Onc Consultation for Dr. Quiros Reason for consult: Colonic mass with possible mets to liver and lung 62 year old male with PMHx of glaucoma, DVT and back and hip injury from 6 story fall 20 years ago admitted on 03/15/17 for with coffee ground emesis. Patient admits to "black vomit" and "constipation" on admission. He has not had a bowel movement in about 1 week. Admits to very small BM this morning. He noticed blood when he wiped and very minimal amounts of stool. Patient reports 10 lb unintentional weight loss over the past 1 year. He also admits to "spaghetti like" stools for the past 4-5 years. Patient has never had a colonoscopy or endoscopy. In the ED, abdominal CT showed left lower quadrant colonic hyperdense mass measuring 4.6 x 5.1 x 7.0 cm suspicious for colon cancer with partial or early colonic obstruction, omental infiltration, dilated fluid filled small bowel loops. CT also showed bilateral numerous pulmonary nodules representing infection or metastasis. Liver showed multiple ill-defined masses suspicious for hepatic metastasis. Patient denies history of malignancy in himself or in his family. Hgb stable on admission. NGT was placed in the ER. PMHx: back injury after fall from 6 story height, DVT with IVC filter in place, glaucoma. PSHx: Abdominal surgery (ex lap after fall), IVC filter, hip surgery, h/o skin grafting. FMHx: Denies family history of any cancers. Allergies: Penicillin as a child Social: former alcohol abuse, 6 pack of beer per day, quit 2 years ago. Former marijuana abuse, no recent use. 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 Review of Systems - Constitutional Constitutional: absent: Chills, Fatigue, Fever - EENT Eyes: absent: Blurred Vision, Change in Vision Ears: absent: Dizziness - Cardiovascular Cardiovascular: absent: Chest Pain, Dyspnea, Edema - Respiratory Respiratory: absent: Cough, Dyspnea, Hemoptysis - Gastrointestinal Gastrointestinal: Abdominal Pain, Bloating, Constipation, Nausea, Vomiting ( black vomit). absent: Diarrhea - Genitourinary Genitourinary: absent: Difficulty Urinating, Dysuria - Musculoskeletal Musculoskeletal: Back Pain, Muscle Weakness. absent: Numbness, Tingling - Integumentary Integumentary: absent: Swelling - Neurological Neurological: absent: Dizziness, Numbness, Headaches, Syncope, Tingling, Weakness - Psychiatric Psychiatric: absent: Anxiety - Endocrine Endocrine: absent: Fatigue, Palpitations - Hematologic/Lymphatic Hematologic: absent: Easy Bruising Past Patient History - Tetanus Immunizations Tetanus Immunization: Unknown - Past Medical History & Family History Past Medical History?: Yes - Past Social History Smoking Status: Never Smoked Alcohol: None Home Situation {Lives}: With Family Domestic Violence: Negative - CARDIAC Hx Cardiac Disorders: No - PULMONARY Hx Respiratory Disorders: No - NEUROLOGICAL Hx Neurological Disorder: No - HEENT Hx HEENT Problems: Yes Hx Glaucoma: Yes - RENAL Hx Chronic Kidney Disease: No - ENDOCRINE/METABOLIC Hx Endocrine Disorders: No - HEMATOLOGICAL/ONCOLOGICAL Hx Blood Disorders: No - INTEGUMENTARY Hx Dermatological Problems: No - MUSCULOSKELETAL/RHEUMATOLOGICAL Hx Falls: Yes (work accident) - GASTROINTESTINAL Hx Gastrointestinal Disorders: Yes Hx Constipation: Yes - GENITOURINARY/GYNECOLOGICAL Hx Genitourinary Disorders: No - PSYCHIATRIC Hx Psychophysiologic Disorder: Yes Hx Depression: Yes - SURGICAL HISTORY Hx Surgeries: Yes (SEE COMMENT) Hx Orthopedic Surgery: Yes (BILAT WRIST, right hip surgery s/p work accident) Other/Comment: left knee degloving, exploratory lap s/p work accident - ANESTHESIA Hx Anesthesia: Yes Hx Anesthesia Reactions: No Hx Malignant Hyperthermia: No Has any member of the family had a problem w/ anesthesia?: No Meds Allergies/Adverse Reactions: Allergies Allergy/AdvReac Type Severity Reaction Status Date / Time Penicillins Allergy RASH Verified 03/15/17 04:29 - Medications Medications: Current Medications Heparin Sodium (Porcine) (Heparin) 5,000 units SC Q12 [facility] Last Admin: 03/15/17 10:44 Dose: 5,000 units Ceftriaxone Sodium 1 gm/ (Sodium Chloride) 100 mls @ 100 mls/hr IVPB DAILY [facility] Last Admin: 03/15/17 10:44 Dose: 100 mls/hr Potassium Chloride/Dextrose (Potassium Chl 20 Meq In D5w) 1,000 mls @ 125 mls/ hr IV .Q8H [facility] Last Admin: 03/15/17 07:05 Dose: 125 mls/hr Metronidazole (Flagyl) 500 mg in 100 mls @ 100 mls/hr IVPB Q8 [facility] Last Admin: 03/15/17 14:30 Dose: 100 mls/hr Pantoprazole Sodium 80 mg/ (Sodium Chloride) 100 mls @ 10 mls/hr IV .Q10H [facility] PRN Reason: 8 MG/HR Ondansetron HCl (Zofran Inj) 4 mg IVP Q4H PRN PRN Reason: Nausea/Vomiting Physical Exam - Constitutional Appears: No Acute Distress - Head Exam Head Exam: NORMAL INSPECTION, NORMOCEPHALIC - Eye Exam Eye Exam: EOMI, Normal appearance - ENT Exam ENT Exam: Mucous Membranes Moist - Neck Exam Neck exam: Positive for: Normal Inspection - Respiratory Exam Respiratory Exam: Clear to Auscultation Bilateral, NORMAL BREATHING PATTERN - Cardiovascular Exam Cardiovascular Exam: REGULAR RHYTHM, +S1, +S2 - GI/Abdominal Exam GI & Abdominal Exam: Diminished Bowel Sounds, Distended, Tenderness - Extremities Exam Extremities exam: Positive for: full ROM. Negative for: pedal edema, tenderness - Back Exam Back exam: NORMAL INSPECTION - Neurological Exam Neurological exam: Alert, Oriented x3 - Psychiatric Exam Psychiatric exam: Normal Affect, Normal Mood - Skin Skin Exam: Dry, Normal Color, Warm Results - Vital Signs Recent Vital Signs: Last Vital Signs Temp 98.2 F 03/15/17 12:00 Pulse 111 H 03/15/17 14:32 Resp 21 03/15/17 14:32 BP 150/92 H 03/15/17 14:32 Pulse Ox 96 03/15/17 14:32 - Labs Result Diagrams: 03/15/17 04:47 03/15/17 04:47 Labs: Laboratory Results - last 24 hr 03/15/17 03/15/17 03/15/17 04:47 04:47 04:47 WBC 23.5 H RBC 6.33 H Hgb 15.1 Hct 46.7 MCV 73.8 L MCH 23.8 L MCHC 32.3 L RDW 17.7 H Plt Count 489 H MPV 8.0 Neut % (Auto) 81.8 H Lymph % (Auto) 8.8 L [place] % (Auto) 9.1 Eos % (Auto) 0.0 Baso % (Auto) 0.3 Neut # 19.2 H Lymph # 2.1 [place] # 2.1 H Eos # 0.0 Baso # 0.1 Neutrophils % (Manual) 73 Band Neutrophils % 9 H Lymphocytes % (Manual) 9 L Monocytes % (Manual) 9 Toxic Granulation Present Platelet Estimate Slightly increased H Anisocytosis (manual) Slight PT 13.9 H INR 1.2 APTT 38 H pO2 VBG pH VBG pCO2 VBG HCO3 VBG Total CO2 VBG O2 Sat (Calc) VBG Base Excess VBG Potassium Glucose Lactate Sodium 133 Potassium 3.8 Chloride 91 L Carbon Dioxide 27 Anion Gap 19 BUN 35 H Creatinine 1.0 Est GFR ( Amer) > 60 Est GFR (Non-Af Amer) > 60 Random Glucose 158 H Lactic Acid Calcium 9.1 Total Bilirubin 1.0 AST 67 H ALT 51 Alkaline Phosphatase 344 H Total Protein 9.0 H Albumin 4.0 Globulin 5.0 H Albumin/Globulin Ratio 0.8 L Venous Blood Potassium Gastric Occult Blood Blood Type Antibody Screen 03/15/17 03/15/17 03/15/17 04:57 05:21 05:35 WBC RBC Hgb Hct MCV MCH MCHC RDW Plt Count MPV Neut % (Auto) Lymph % (Auto) [place] % (Auto) Eos % (Auto) Baso % (Auto) Neut # Lymph # [place] # Eos # Baso # Neutrophils % (Manual) Band Neutrophils % Lymphocytes % (Manual) Monocytes % (Manual) Toxic Granulation Platelet Estimate Anisocytosis (manual) PT INR APTT pO2 25 L VBG pH 7.43 VBG pCO2 45 VBG HCO3 27.3 VBG Total CO2 31.3 H VBG O2 Sat (Calc) 46.8 VBG Base Excess 4.8 H VBG Potassium 4.3 Glucose 105 Lactate 3.8 H Sodium 139.0 Potassium Chloride 103.0 Carbon Dioxide Anion Gap BUN Creatinine Est GFR ( Amer) Est GFR (Non-Af Amer) Random Glucose Lactic Acid Calcium Total Bilirubin AST ALT Alkaline Phosphatase Total Protein Albumin Globulin Albumin/Globulin Ratio Venous Blood Potassium 4.3 Gastric Occult Blood Positive H Blood Type O POSITIVE Antibody Screen Negative 03/15/17 03/15/17 10:06 10:08 WBC RBC Hgb Hct MCV MCH MCHC RDW Plt Count MPV Neut % (Auto) Lymph % (Auto) [place] % (Auto) Eos % (Auto) Baso % (Auto) Neut # Lymph # [place] # Eos # Baso # Neutrophils % (Manual) Band Neutrophils % Lymphocytes % (Manual) Monocytes % (Manual) Toxic Granulation Platelet Estimate Anisocytosis (manual) PT INR APTT 29 D pO2 VBG pH VBG pCO2 VBG HCO3 VBG Total CO2 VBG O2 Sat (Calc) VBG Base Excess VBG Potassium Glucose Lactate Sodium Potassium Chloride Carbon Dioxide Anion Gap BUN Creatinine Est GFR ( Amer) Est GFR (Non-Af Amer) Random Glucose Lactic Acid 2.1 Calcium Total Bilirubin AST ALT Alkaline Phosphatase Total Protein Albumin Globulin Albumin/Globulin Ratio Venous Blood Potassium Gastric Occult Blood Blood Type Antibody Screen Assessment & Plan - Assessment and Plan (Free Text) Assessment: 1.Colon mass Surgery consultation GI consultation Recommend percutaneous liver biopsy Recommend dedicated CT of chest with IV contrast Will check CEA Imagining reveals liver and lung lesions Radiographic appearance concerning for metastatic disease Further recommendations pending results of biopsy 2. Leukocytosis on antibiotics Patient seen during rounds with Dr. Quiros. Recommendations above as per discussion with attending. Shanta Patel DO- PGY 3 <Chip Quiros - Last Filed: 03/15/17 17:28> Meds - Medications Medications: Current Medications Heparin Sodium (Porcine) (Heparin) 5,000 units SC Q12 [facility] Last Admin: 03/15/17 10:44 Dose: 5,000 units Ceftriaxone Sodium 1 gm/ (Sodium Chloride) 100 mls @ 100 mls/hr IVPB DAILY [facility] Last Admin: 03/15/17 10:44 Dose: 100 mls/hr Potassium Chloride/Dextrose (Potassium Chl 20 Meq In D5w) 1,000 mls @ 125 mls/ hr IV .Q8H [facility] Last Admin: 03/15/17 07:05 Dose: 125 mls/hr Metronidazole (Flagyl) 500 mg in 100 mls @ 100 mls/hr IVPB Q8 [facility] Last Admin: 03/15/17 14:30 Dose: 100 mls/hr Pantoprazole Sodium 80 mg/ (Sodium Chloride) 100 mls @ 10 mls/hr IV .Q10H [facility] PRN Reason: 8 MG/HR Ondansetron HCl (Zofran Inj) 4 mg IVP Q4H PRN PRN Reason: Nausea/Vomiting Results - Vital Signs Recent Vital Signs: Last Vital Signs Temp 98.4 F 03/15/17 16:00 Pulse 117 H 03/15/17 16:32 Resp 26 H 03/15/17 16:32 BP 168/105 H 03/15/17 16:32 Pulse Ox 95 03/15/17 16:32 - Labs Result Diagrams: 03/15/17 04:47 03/15/17 04:47 Labs: Laboratory Results - last 24 hr 03/15/17 03/15/17 03/15/17 04:47 04:47 04:47 WBC 23.5 H RBC 6.33 H Hgb 15.1 Hct 46.7 MCV 73.8 L MCH 23.8 L MCHC 32.3 L RDW 17.7 H Plt Count 489 H MPV 8.0 Neut % (Auto) 81.8 H Lymph % (Auto) 8.8 L [place] % (Auto) 9.1 Eos % (Auto) 0.0 Baso % (Auto) 0.3 Neut # 19.2 H Lymph # 2.1 [place] # 2.1 H Eos # 0.0 Baso # 0.1 Neutrophils % (Manual) 73 Band Neutrophils % 9 H Lymphocytes % (Manual) 9 L Monocytes % (Manual) 9 Toxic Granulation Present Platelet Estimate Slightly increased H Anisocytosis (manual) Slight PT 13.9 H INR 1.2 APTT 38 H pO2 VBG pH VBG pCO2 VBG HCO3 VBG Total CO2 VBG O2 Sat (Calc) VBG Base Excess VBG Potassium Glucose Lactate Sodium 133 Potassium 3.8 Chloride 91 L Carbon Dioxide 27 Anion Gap 19 BUN 35 H Creatinine 1.0 Est GFR ( Amer) > 60 Est GFR (Non-Af Amer) > 60 Random Glucose 158 H Lactic Acid Calcium 9.1 Total Bilirubin 1.0 AST 67 H ALT 51 Alkaline Phosphatase 344 H Total Protein 9.0 H Albumin 4.0 Globulin 5.0 H Albumin/Globulin Ratio 0.8 L Procalcitonin Venous Blood Potassium Gastric Occult Blood Blood Type Antibody Screen 03/15/17 03/15/17 03/15/17 04:57 05:21 05:35 WBC RBC Hgb Hct MCV MCH MCHC RDW Plt Count MPV Neut % (Auto) Lymph % (Auto) [place] % (Auto) Eos % (Auto) Baso % (Auto) Neut # Lymph # [place] # Eos # Baso # Neutrophils % (Manual) Band Neutrophils % Lymphocytes % (Manual) Monocytes % (Manual) Toxic Granulation Platelet Estimate Anisocytosis (manual) PT INR APTT pO2 25 L VBG pH 7.43 VBG pCO2 45 VBG HCO3 27.3 VBG Total CO2 31.3 H VBG O2 Sat (Calc) 46.8 VBG Base Excess 4.8 H VBG Potassium 4.3 Glucose 105 Lactate 3.8 H Sodium 139.0 Potassium Chloride 103.0 Carbon Dioxide Anion Gap BUN Creatinine Est GFR ( Amer) Est GFR (Non-Af Amer) Random Glucose Lactic Acid Calcium Total Bilirubin AST ALT Alkaline Phosphatase Total Protein Albumin Globulin Albumin/Globulin Ratio Procalcitonin Venous Blood Potassium 4.3 Gastric Occult Blood Positive H Blood Type O POSITIVE Antibody Screen Negative 03/15/17 03/15/17 03/15/17 10:06 10:06 10:08 WBC RBC Hgb Hct MCV MCH MCHC RDW Plt Count MPV Neut % (Auto) Lymph % (Auto) [place] % (Auto) Eos % (Auto) Baso % (Auto) Neut # Lymph # [place] # Eos # Baso # Neutrophils % (Manual) Band Neutrophils % Lymphocytes % (Manual) Monocytes % (Manual) Toxic Granulation Platelet Estimate Anisocytosis (manual) PT INR APTT 29 D pO2 VBG pH VBG pCO2 VBG HCO3 VBG Total CO2 VBG O2 Sat (Calc) VBG Base Excess VBG Potassium Glucose Lactate Sodium Potassium Chloride Carbon Dioxide Anion Gap BUN Creatinine Est GFR ( Amer) Est GFR (Non-Af Amer) Random Glucose Lactic Acid 2.1 Calcium Total Bilirubin AST ALT Alkaline Phosphatase Total Protein Albumin Globulin Albumin/Globulin Ratio Procalcitonin 0.41 Venous Blood Potassium Gastric Occult Blood Blood Type Antibody Screen Assessment & Plan - Assessment and Plan (Free Text) Assessment: Pt seen and examined, agree with Dr. Patel's consult. 62 year old male admitted with abdominal bloating, found to have a large left sided colonic mass , small bowel obstruction, liver and lung lesions concerning for obstructive metastatic malignancy. To be evaluated by surgery, GI. Will ultimately need a biopsy to evaluate for malignancy and surgical diversion/resection. Thank you for this interesting consult.
--- NOTE | 2017-03-15 15:30 | CP.PCM.CON ---
<Enid Bello - Last Filed: 03/15/17 15:25> History of Present Illness - History of Present Illness History of Present Illness: Surgery 62 M w H/O ex lap for trauma came with vomiting and obstipation. Pt reports that last Bm was 1 week ago and passing flatus minimal amount. Pt also reports coffee ground emesis. Vomiting started on Tuesday and he noticed black color vomitus this morning. .Denies fever,denies abdominal pain.Denies shortness of breath,denies chest pain. Reports weight loss about 10lbs in a year. NGT is placed in ED. CT of abd shows 7x5cm colon mass on LLQ and dilated SB upto 4cm. Surgery is consulted to evaluate for Colon mass and SBO PMH -Glaucoma PSH.Exploratory lap 20years ago,left hip surgery,dvt and IVC filter,skin graft Review of Systems - Review of Systems Review of Systems: See HPI Past Patient History - Tetanus Immunizations Tetanus Immunization: Unknown - Past Medical History & Family History Past Medical History?: Yes - Past Social History Smoking Status: Never Smoked Alcohol: None Home Situation {Lives}: With Family Domestic Violence: Negative - CARDIAC Hx Cardiac Disorders: No - PULMONARY Hx Respiratory Disorders: No - NEUROLOGICAL Hx Neurological Disorder: No - HEENT Hx HEENT Problems: Yes Hx Glaucoma: Yes - RENAL Hx Chronic Kidney Disease: No - ENDOCRINE/METABOLIC Hx Endocrine Disorders: No - HEMATOLOGICAL/ONCOLOGICAL Hx Blood Disorders: No - INTEGUMENTARY Hx Dermatological Problems: No - MUSCULOSKELETAL/RHEUMATOLOGICAL Hx Falls: Yes (work accident) - GASTROINTESTINAL Hx Gastrointestinal Disorders: Yes Hx Constipation: Yes - GENITOURINARY/GYNECOLOGICAL Hx Genitourinary Disorders: No - PSYCHIATRIC Hx Psychophysiologic Disorder: Yes Hx Depression: Yes - SURGICAL HISTORY Hx Surgeries: Yes (SEE COMMENT) Hx Orthopedic Surgery: Yes (BILAT WRIST, right hip surgery s/p work accident) Other/Comment: left knee degloving, exploratory lap s/p work accident - ANESTHESIA Hx Anesthesia: Yes Hx Anesthesia Reactions: No Hx Malignant Hyperthermia: No Has any member of the family had a problem w/ anesthesia?: No Meds Allergies/Adverse Reactions: Allergies Allergy/AdvReac Type Severity Reaction Status Date / Time Penicillins Allergy RASH Verified 03/15/17 04:29 - Medications Medications: Current Medications Heparin Sodium (Porcine) (Heparin) 5,000 units SC Q12 [facility] Last Admin: 03/15/17 10:44 Dose: 5,000 units Ceftriaxone Sodium 1 gm/ (Sodium Chloride) 100 mls @ 100 mls/hr IVPB DAILY [facility] Last Admin: 03/15/17 10:44 Dose: 100 mls/hr Potassium Chloride/Dextrose (Potassium Chl 20 Meq In D5w) 1,000 mls @ 125 mls/ hr IV .Q8H [facility] Last Admin: 03/15/17 07:05 Dose: 125 mls/hr Metronidazole (Flagyl) 500 mg in 100 mls @ 100 mls/hr IVPB Q8 [facility] Last Admin: 03/15/17 14:30 Dose: 100 mls/hr Pantoprazole Sodium 80 mg/ (Sodium Chloride) 100 mls @ 10 mls/hr IV .Q10H [facility] PRN Reason: 8 MG/HR Ondansetron HCl (Zofran Inj) 4 mg IVP Q4H PRN PRN Reason: Nausea/Vomiting Physical Exam - Constitutional Appears: In Acute Distress - Head Exam Head Exam: ATRAUMATIC, NORMAL INSPECTION, NORMOCEPHALIC - Eye Exam Eye Exam: EOMI, Normal appearance, PERRL Pupil Exam: NORMAL ACCOMODATION, PERRL - ENT Exam ENT Exam: Mucous Membranes Moist - Neck Exam Neck exam: Positive for: Normal Inspection - Respiratory Exam Respiratory Exam: Clear to Auscultation Bilateral, NORMAL BREATHING PATTERN - GI/Abdominal Exam GI & Abdominal Exam: Distended, Firm, Normal Bowel Sounds, Soft, Tenderness. absent: Hernia Additional comments: Well healed incision. Tympanic - Rectal Exam Rectal Exam: NORMAL INSPECTION. absent: Black Stool, Bloody Stool Additional comments: Normal sphincter tone. No mass palpable. No internal or external hemorrhoids. No blood. stool in rectal vault - Extremities Exam Extremities exam: Positive for: full ROM, normal inspection - Back Exam Back exam: NORMAL INSPECTION - Neurological Exam Neurological exam: Alert, CN II-XII Intact, Normal Gait, Oriented x3, Reflexes Normal - Psychiatric Exam Psychiatric exam: Normal Affect, Normal Mood - Skin Skin Exam: Dry, Intact, Normal Color, Warm Results - Vital Signs Recent Vital Signs: Last Vital Signs Temp 98.2 F 03/15/17 12:00 Pulse 111 H 03/15/17 14:32 Resp 21 03/15/17 14:32 BP 150/92 H 03/15/17 14:32 Pulse Ox 96 03/15/17 14:32 - Labs Result Diagrams: 03/15/17 04:47 03/15/17 04:47 Labs: Laboratory Results - last 24 hr 03/15/17 03/15/17 03/15/17 04:47 04:47 04:47 WBC 23.5 H RBC 6.33 H Hgb 15.1 Hct 46.7 MCV 73.8 L MCH 23.8 L MCHC 32.3 L RDW 17.7 H Plt Count 489 H MPV 8.0 Neut % (Auto) 81.8 H Lymph % (Auto) 8.8 L [place] % (Auto) 9.1 Eos % (Auto) 0.0 Baso % (Auto) 0.3 Neut # 19.2 H Lymph # 2.1 [place] # 2.1 H Eos # 0.0 Baso # 0.1 Neutrophils % (Manual) 73 Band Neutrophils % 9 H Lymphocytes % (Manual) 9 L Monocytes % (Manual) 9 Toxic Granulation Present Platelet Estimate Slightly increased H Anisocytosis (manual) Slight PT 13.9 H INR 1.2 APTT 38 H pO2 VBG pH VBG pCO2 VBG HCO3 VBG Total CO2 VBG O2 Sat (Calc) VBG Base Excess VBG Potassium Glucose Lactate Sodium 133 Potassium 3.8 Chloride 91 L Carbon Dioxide 27 Anion Gap 19 BUN 35 H Creatinine 1.0 Est GFR ( Amer) > 60 Est GFR (Non-Af Amer) > 60 Random Glucose 158 H Lactic Acid Calcium 9.1 Total Bilirubin 1.0 AST 67 H ALT 51 Alkaline Phosphatase 344 H Total Protein 9.0 H Albumin 4.0 Globulin 5.0 H Albumin/Globulin Ratio 0.8 L Venous Blood Potassium Gastric Occult Blood Blood Type Antibody Screen 03/15/17 03/15/17 03/15/17 04:57 05:21 05:35 WBC RBC Hgb Hct MCV MCH MCHC RDW Plt Count MPV Neut % (Auto) Lymph % (Auto) [place] % (Auto) Eos % (Auto) Baso % (Auto) Neut # Lymph # [place] # Eos # Baso # Neutrophils % (Manual) Band Neutrophils % Lymphocytes % (Manual) Monocytes % (Manual) Toxic Granulation Platelet Estimate Anisocytosis (manual) PT INR APTT pO2 25 L VBG pH 7.43 VBG pCO2 45 VBG HCO3 27.3 VBG Total CO2 31.3 H VBG O2 Sat (Calc) 46.8 VBG Base Excess 4.8 H VBG Potassium 4.3 Glucose 105 Lactate 3.8 H Sodium 139.0 Potassium Chloride 103.0 Carbon Dioxide Anion Gap BUN Creatinine Est GFR ( Amer) Est GFR (Non-Af Amer) Random Glucose Lactic Acid Calcium Total Bilirubin AST ALT Alkaline Phosphatase Total Protein Albumin Globulin Albumin/Globulin Ratio Venous Blood Potassium 4.3 Gastric Occult Blood Positive H Blood Type O POSITIVE Antibody Screen Negative 03/15/17 03/15/17 10:06 10:08 WBC RBC Hgb Hct MCV MCH MCHC RDW Plt Count MPV Neut % (Auto) Lymph % (Auto) [place] % (Auto) Eos % (Auto) Baso % (Auto) Neut # Lymph # [place] # Eos # Baso # Neutrophils % (Manual) Band Neutrophils % Lymphocytes % (Manual) Monocytes % (Manual) Toxic Granulation Platelet Estimate Anisocytosis (manual) PT INR APTT 29 D pO2 VBG pH VBG pCO2 VBG HCO3 VBG Total CO2 VBG O2 Sat (Calc) VBG Base Excess VBG Potassium Glucose Lactate Sodium Potassium Chloride Carbon Dioxide Anion Gap BUN Creatinine Est GFR ( Amer) Est GFR (Non-Af Amer) Random Glucose Lactic Acid 2.1 Calcium Total Bilirubin AST ALT Alkaline Phosphatase Total Protein Albumin Globulin Albumin/Globulin Ratio Venous Blood Potassium Gastric Occult Blood Blood Type Antibody Screen Assessment & Plan - Assessment and Plan (Free Text) Assessment: Colon mass and SBO -NPO -NGT to low cont suction -F/U colonoscopy tomorrow -Medical management -IVF Dr. Steinberg <Trace Steinberg - Last Filed: 03/19/17 21:47> Meds - Medications Medications: Current Medications Albuterol/Ipratropium (Duoneb 3 Mg/0.5 Mg (3 Ml) Ud) 3 ml INH RQ6 [facility] Last Admin: 03/19/17 20:36 Dose: 3 ml Enoxaparin Sodium (Lovenox) 30 mg SC DAILY [facility] Last Admin: 03/19/17 10:05 Dose: 30 mg Home Med (Patient's Own Drops) 0 drop OU BID [facility] Last Admin: 03/19/17 18:12 Dose: 1 drop Home Med (Patient's Own Drops) 0 drop OU HS [facility] Last Admin: 01/19/18 23:48 Dose: 1 drop Metronidazole (Flagyl) 500 mg in 100 mls @ 100 mls/hr IVPB Q8 [facility] Last Admin: 03/19/17 14:29 Dose: 100 mls/hr Cefepime HCl (Maxipime Iv 2 Gm Premix) 2 gm in 100 mls @ 100 mls/hr IVPB Q8H [facility] Stop: 03/21/17 12:01 Last Admin: 03/19/17 20:31 Dose: 100 mls/hr BUPIVACAINE 0.125%/0.9% NACL (Bupivacaine-Ns 0.125% On-Q Web Site Administrator) 600 mls @ 4 mls/ hr IJ ONCE ONE Stop: 03/24/17 01:30 Last Admin: 03/17/17 20:32 Dose: 4 mls/hr Propofol (Diprivan) 1,000 mg in 100 mls @ 2.693 mls/hr IV .Q24H PRN; Protocol; 5 MCG/KG/MIN PRN Reason: TITRATE PER MD ORDER Fentanyl Citrate 2,500 mcg/ (Dextrose) 250 mls @ 17.95 mls/hr IV .[id number] PRN; 2 MCG/KG/HR PRN Reason: Protocol Last Admin: 03/19/17 20:30 Dose: 1 mcg/kg/hr, 8.97 mls/hr Lactated Ringer's (Lactated Ringer's) 1,000 mls @ 100 mls/hr IV .Q10H [facility] Last Admin: 03/19/17 20:22 Dose: Not Given Vancomycin/Sodium Chloride (Vancomycin 1 Gm/Ns 200 Ml) 1 gm in 200 mls @ 166.7 mls/hr IVPB Q12H [facility] Stop: 03/24/17 12:01 Last Admin: 03/19/17 12:37 Dose: 166.7 mls/hr Lorazepam (Ativan) 0.5 mg IVP BID [facility] Last Admin: 03/19/17 17:59 Dose: Not Given Metoprolol Tartrate (Lopressor) 5 mg IVP Q6 [facility] Last Admin: 03/19/17 18:12 Dose: 5 mg Ondansetron HCl (Zofran Inj) 4 mg IVP Q4H PRN PRN Reason: Nausea/Vomiting Last Admin: 03/16/17 13:07 Dose: 4 mg Pantoprazole Sodium (Protonix Inj) 40 mg IVP DAILY [facility] Last Admin: 03/19/17 10:05 Dose: 40 mg Results - Vital Signs Recent Vital Signs: Last Vital Signs Temp 100.2 F H 03/19/17 20:00 Pulse 97 H 03/19/17 21:00 Resp 13 03/19/17 21:00 BP 111/64 03/19/17 21:03 Pulse Ox 96 03/19/17 21:00 - Labs Result Diagrams: 03/19/17 06:39 03/19/17 06:39 Labs: Laboratory Results - last 24 hr 03/19/17 03/19/17 03/19/17 05:25 06:39 06:39 WBC 12.8 H RBC 3.41 L Hgb 8.5 L D Hct 26.3 L MCV 77.0 L MCH 24.9 L MCHC 32.3 L RDW 18.5 H Plt Count 210 MPV 8.5 Neut % (Auto) 77.3 H Lymph % (Auto) 7.6 L [place] % (Auto) 14.5 H Eos % (Auto) 0.3 Baso % (Auto) 0.3 Neut # 9.9 H Lymph # 1.0 [place] # 1.9 H Eos # 0.0 Baso # 0.0 Neutrophils % (Manual) 60 Band Neutrophils % 25 H* Lymphocytes % (Manual) 3 L Monocytes % (Manual) 11 H Metamyelocytes % 1 H Toxic Granulation Present Platelet Estimate Normal Large Platelets Present Hypochromasia (manual) Slight Anisocytosis (manual) Slight Microcytosis (manual) Slight Target Cells Slight Puncture Site A-line pCO2 44 pO2 142 H HCO3 20.0 L ABG pH 7.27 L ABG Total CO2 21.6 L ABG O2 Saturation 99.4 H ABG Base Excess -6.4 L ABG Hemoglobin 9.1 L ABG Carboxyhemoglobin 1.2 POC ABG HHb (Measured) 0.6 ABG Methemoglobin 1.2 [place] Test Na A-a O2 Difference 160.0 Respiratory Index 1.1 Hgb O2 Saturation 96.9 Vent Mode Prvc Mechanical Rate 12 FiO2 50.0 Tidal Volume 500 PEEP 5 Sodium 132 Potassium 4.7 Chloride 101 Carbon Dioxide 24 Anion Gap 12 BUN 23 H Creatinine 1.3 Est GFR ( Amer) > 60 Est GFR (Non-Af Amer) 56 Random Glucose 64 L Calcium 7.7 L Phosphorus 3.1 Magnesium 1.9 Total Bilirubin 1.4 H AST 136 H ALT 49 Alkaline Phosphatase 114 Total Protein 5.8 L Albumin 3.0 L D Globulin 2.7 Albumin/Globulin Ratio 1.1 Attending/Attestation - Attestation I have personally seen and examined this patient.: Yes I have fully participated in the care of the patient.: Yes I have reviewed all pertinent clinical information: Yes Notes (Text): Pt was seen and examined at bedside Agree with above note and assessment Pt with Left colon mass with LBO Abdomen is distended and tender Labs and radiology reviewed. GI consult for Sigmoidoscopy C.w ICU management IV antibiotics Plan d.w pt in detail Risk and benefit explained in detail.
[2017-03-15] MEDS: Pantoprazole 80 MG in Sodium Chloride 0.9% 100 ML IV SCH (16:00)
[2017-03-15 18:54] LABS: MEAN CELL VOLUME 74.1 fL (80.0-94.0); MEAN CORPUSCULAR HEMOGLOBIN 23.7 pg (27.0-31.0); MEAN CORPUSCULAR HGB CONC 32.1 g/dL (33.0-37.0); MEAN PLATELET VOLUME 7.5 fL (7.2-11.7); RBC 5.27 Mil/uL (4.40-5.90); RED CELL DISTRIBUTION WIDTH 17.7 % (11.5-14.5); WHITE BLOOD COUNT 16.5 K/uL (4.8-10.8)
[2017-03-15 18:59] LABS: HEMOGLOBIN 12.5 g/dL (12.0-18.0)
[2017-03-15] MEDS: COMBIGAN OU SCH (21:53)
[2017-03-15] MEDS: TRAVATAN OU SCH (21:54)
[2017-03-16] MEDS: Pantoprazole 80 MG in Sodium Chloride 0.9% 100 ML IV SCH ×3 (02:21→12:59)
[2017-03-16] MEDS: metroNIDAZOLE IV 500 mg/100 ml 500 MG/100 ML BAG IVPB SCH ×3 (05:55→22:56)
[2017-03-16 06:44] LABS: BASO % 0.3 % (0.0-2.0); EOS # 0.1 K/uL (0.0-0.7); EOS % 0.4 % (0.0-4.0); LYMPH # 1.6 K/uL (1.0-4.3); LYMPH % 9.3 % (20.0-40.0); MEAN CELL VOLUME 75.3 fL (80.0-94.0); MEAN CORPUSCULAR HEMOGLOBIN 24.6 pg (27.0-31.0); MEAN CORPUSCULAR HGB CONC 32.7 g/dL (33.0-37.0); MEAN PLATELET VOLUME 8.5 fL (7.2-11.7); MONO # 1.6 K/uL (0.0-0.8); MONO % 9.7 % (0.0-10.0); NEUT # 13.6 K/uL (1.8-7.0); NEUT % 80.3 % (50.0-75.0); NRBC % 0.1 % (0.0-2.0); PLATELET COUNT 326 K/uL (130-400); RBC 4.89 Mil/uL (4.40-5.90); RED CELL DISTRIBUTION WIDTH 17.9 % (11.5-14.5); WHITE BLOOD COUNT 16.9 K/uL (4.8-10.8)
[2017-03-16] MEDS: Potassium Ch 20mEq in D5W 1,000 ML IV SCH ×4 (06:59→23:36)
[2017-03-16 07:16] LABS: ALB/GLOB RATIO 0.9 (1.0-2.1); ALBUMIN 3.2 g/dL (3.5-5.0); ALT/SGPT 33 U/L (21-72); AST/SGOT 56 U/L (17-59); BLOOD UREA NITROGEN 19 mg/dL (9-20); CALCIUM 7.6 mg/dl (8.6-10.4); GFR AFRICAN-AMERICAN > 60; GFR NON-AFRICAN AMERICAN > 60
[2017-03-16] MEDS: COMBIGAN OU SCH ×3 (08:51→17:44)
[2017-03-16 09:04] LABS: ANISOCYTOSIS SLIGHT; BANDS 12 % (0-2); LYMPHOCYTE 9 % (20-40); MONOCYTE 8 % (0-10); NEUTROPHIL 70 % (50-75); PLATELET ESTIMATE NORMAL (NORMAL); REACTIVE LYMPHOCYTES 1 % (0-0); TOTAL CELLS COUNTED 100
--- NOTE | 2017-03-16 11:30 | CP.CCUPN ---
<Luis Kelly - Last Filed: 03/16/17 12:29> CCU Subjective - Physician Review Events Since Last Encounter (Free Text): 03/16/17 11:28 Patient seen and examined at bedside NGT enemas given going for flex sig today Surgery considering OR tomorrow depending on GI findings 03/16/17 12:29 Flex sig completed. 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 Will update surgery CCU Objective - Vital Signs / Intake & Output Vital Signs (Last 4 hours): Vital Signs Temp Pulse Resp BP Pulse Ox 03/16/17 08:50 101 H 20 03/16/17 08:48 114 H 03/16/17 08:20 105 H 31 H 95 03/16/17 08:10 107 H 24 96 03/16/17 08:00 98.7 F 105 H 28 H 95 03/16/17 07:59 102 H 28 H 135/95 H 93 L 03/16/17 07:50 102 H 27 H 95 03/16/17 07:40 103 H 21 96 03/16/17 07:30 101 H 35 H 94 L Intake and Output (Last 8hrs): Intake & Output 03/15/17 03/16/17 03/16/17 22:59 06:59 14:59 Intake Total 915 1295 270 Output Total 300 525 1 Balance 615 770 269 Weight 220 lb 3.2 oz Intake: Intake, IV Amount 915 1295 270 Left Hand 40 70 20 Right Hand 875 1225 250 Output: Urine 300 525 Urine, Voided 300 525 Stool 0 1 - Physical Exam Physical Exam Limitations: Negative for: Altered Mental Status Head: Positive for: Atraumatic, Normocephalic Pupils: Positive for: PERRL Extroacular Muscles: Positive for: EOMI Conjunctiva: Positive for: Normal Mouth: Positive for: Moist Mucous Membranes Neck: Positive for: Normal Range of Motion Respiratory/Chest: Positive for: Clear to Auscultation, Accessory Muscle Use Cardiovascular: Positive for: Regular Rate and Rhythm Abdomen: Positive for: Normal Bowel Sounds. Negative for: Tenderness, Distention, Peritoneal Signs Lower Extremity: Positive for: Other (tvp) Psychiatric: Positive for: Alert, Oriented x 3 - Medications Active Medications: Active Medications Generic Name Dose Route Start Last Admin Trade Name Freq PRN Reason Stop Dose Admin Heparin Sodium (Porcine) 5,000 units 03/15/17 10:00 03/15/17 10:44 Heparin SC 5,000 units Q12 MARC Administration Home Med 0 drop 03/15/17 21:15 03/16/17 09:58 Patient's Own Drops OU Not Given BID MARC Home Med 0 drop 03/15/17 22:00 03/15/17 21:54 Patient's Own Drops OU 1 drop HS MARC Administration Potassium Chloride/Dextrose 1,000 mls @ 125 mls/hr 03/15/17 06:45 03/16/17 11 :23 Potassium Chl 20 Meq In D5w IV 125 mls/hr .Q8H MARC Administration Metronidazole 500 mg in 100 mls @ 100 mls/hr 03/15/17 14:00 03/16/17 05:55 Flagyl IVPB 100 mls/hr Q8 MARC Administration Pantoprazole Sodium 80 mg/ 100 mls @ 10 mls/hr 03/15/17 16:00 03/16/17 08:46 Sodium Chloride IV 10 mls/hr .Q10H MARC Administration 8 MG/HR Cefepime HCl 2 gm in 100 mls @ 100 mls/hr 03/16/17 12:00 Maxipime Iv 2 Gm Premix IVPB 03/21/17 12:01 Q8H MARC Ondansetron HCl 4 mg 03/15/17 08:52 Zofran Inj IVP Q4H PRN Nausea/Vomiting - Patient Studies Lab Studies: Microbiology Studies 03/15/17 09:44 Blood Culture - Preliminary Blood NO GROWTH AFTER 24 HOURS 03/15/17 09:44 Blood Culture - Preliminary Blood NO GROWTH AFTER 24 HOURS Lab Studies 03/16/17 03/16/17 03/15/17 Range/Units 06:30 06:27 18:45 WBC 16.9 H 16.5 H (4.8-10.8) K/uL RBC 4.89 5.27 (4.40-5.90) Mil/uL Hgb 12.0 12.5 D (12.0-18.0) g/dL Hct 36.8 39.0 (35.0-51.0) % MCV 75.3 L 74.1 L (80.0-94.0) fL MCH 24.6 L 23.7 L (27.0-31.0) pg MCHC 32.7 L 32.1 L (33.0-37.0) g/dL RDW 17.9 H 17.7 H (11.5-14.5) % Plt Count 326 346 D (130-400) K/uL MPV 8.5 7.5 (7.2-11.7) fL Neut % (Auto) 80.3 H (50.0-75.0) % Lymph % (Auto) 9.3 L (20.0-40.0) % [place] % (Auto) 9.7 (0.0-10.0) % Eos % (Auto) 0.4 (0.0-4.0) % Baso % (Auto) 0.3 (0.0-2.0) % Neut # 13.6 H (1.8-7.0) K/uL Lymph # 1.6 (1.0-4.3) K/uL [place] # 1.6 H (0.0-0.8) K/uL Eos # 0.1 (0.0-0.7) K/uL Baso # 0.0 (0.0-0.2) K/uL Neutrophils % (Manual) 70 (50-75) % Band Neutrophils % 12 H* (0-2) % Lymphocytes % (Manual) 9 L (20-40) % Reactive Lymphs % 1 H (0-0) % Monocytes % (Manual) 8 (0-10) % Platelet Estimate Normal (NORMAL) Anisocytosis (manual) Slight Sodium 128 L (132-148) mmol/L Potassium 4.0 (3.6-5.2) mmol/L Chloride 94 L (98-107) mmol/L Carbon Dioxide 28 (22-30) mmol/L Anion Gap 11 (10-20) BUN 19 (9-20) mg/dL Creatinine 0.8 (0.8-1.5) mg/dL Est GFR ( Amer) > 60 Est GFR (Non-Af Amer) > 60 Random Glucose 111 H (75-110) mg/dL Calcium 7.6 L (8.6-10.4) mg/dl Phosphorus 2.9 (2.5-4.5) mg/dL Magnesium 2.0 (1.6-2.3) mg/dL Total Bilirubin 1.1 (0.2-1.3) mg/dL AST 56 (17-59) U/L ALT 33 (21-72) U/L Alkaline Phosphatase 235 H D (38-126) U/L Total Protein 6.8 (6.3-8.3) g/dL Albumin 3.2 L (3.5-5.0) g/dL Globulin 3.5 (2.2-3.9) gm/dL Albumin/Globulin Ratio 0.9 L (1.0-2.1) Carcinoembryonic Ag (0-3.0) ng/mL Procalcitonin (0.19-0.49) NG/ML 03/15/17 03/15/17 Range/Units 18:45 10:06 WBC (4.8-10.8) K/uL RBC (4.40-5.90) Mil/uL Hgb (12.0-18.0) g/dL Hct (35.0-51.0) % MCV (80.0-94.0) fL MCH (27.0-31.0) pg MCHC (33.0-37.0) g/dL RDW (11.5-14.5) % Plt Count (130-400) K/uL MPV (7.2-11.7) fL Neut % (Auto) (50.0-75.0) % Lymph % (Auto) (20.0-40.0) % [place] % (Auto) (0.0-10.0) % Eos % (Auto) (0.0-4.0) % Baso % (Auto) (0.0-2.0) % Neut # (1.8-7.0) K/uL Lymph # (1.0-4.3) K/uL [place] # (0.0-0.8) K/uL Eos # (0.0-0.7) K/uL Baso # (0.0-0.2) K/uL Neutrophils % (Manual) (50-75) % Band Neutrophils % (0-2) % Lymphocytes % (Manual) (20-40) % Reactive Lymphs % (0-0) % Monocytes % (Manual) (0-10) % Platelet Estimate (NORMAL) Anisocytosis (manual) Sodium (132-148) mmol/L Potassium (3.6-5.2) mmol/L Chloride (98-107) mmol/L Carbon Dioxide (22-30) mmol/L Anion Gap (10-20) BUN (9-20) mg/dL Creatinine (0.8-1.5) mg/dL Est GFR ( Amer) Est GFR (Non-Af Amer) Random Glucose (75-110) mg/dL Calcium (8.6-10.4) mg/dl Phosphorus (2.5-4.5) mg/dL Magnesium (1.6-2.3) mg/dL Total Bilirubin (0.2-1.3) mg/dL AST (17-59) U/L ALT (21-72) U/L Alkaline Phosphatase (38-126) U/L Total Protein (6.3-8.3) g/dL Albumin (3.5-5.0) g/dL Globulin (2.2-3.9) gm/dL Albumin/Globulin Ratio (1.0-2.1) Carcinoembryonic Ag 2590.0 H (0-3.0) ng/mL Procalcitonin 0.41 (0.19-0.49) NG/ML Laboratory Results - last 24 hr 03/15/17 03/15/17 03/15/17 10:06 18:45 18:45 WBC 16.5 H RBC 5.27 Hgb 12.5 D Hct 39.0 MCV 74.1 L MCH 23.7 L MCHC 32.1 L RDW 17.7 H Plt Count 346 D MPV 7.5 Neut % (Auto) Lymph % (Auto) [place] % (Auto) Eos % (Auto) Baso % (Auto) Neut # Lymph # [place] # Eos # Baso # Neutrophils % (Manual) Band Neutrophils % Lymphocytes % (Manual) Reactive Lymphs % Monocytes % (Manual) Platelet Estimate Anisocytosis (manual) Sodium Potassium Chloride Carbon Dioxide Anion Gap BUN Creatinine Est GFR ( Amer) Est GFR (Non-Af Amer) Random Glucose Calcium Phosphorus Magnesium Total Bilirubin AST ALT Alkaline Phosphatase Total Protein Albumin Globulin Albumin/Globulin Ratio Carcinoembryonic Ag 2590.0 H Procalcitonin 0.41 03/16/17 03/16/17 06:27 06:30 WBC 16.9 H RBC 4.89 Hgb 12.0 Hct 36.8 MCV 75.3 L MCH 24.6 L MCHC 32.7 L RDW 17.9 H Plt Count 326 MPV 8.5 Neut % (Auto) 80.3 H Lymph % (Auto) 9.3 L [place] % (Auto) 9.7 Eos % (Auto) 0.4 Baso % (Auto) 0.3 Neut # 13.6 H Lymph # 1.6 [place] # 1.6 H Eos # 0.1 Baso # 0.0 Neutrophils % (Manual) 70 Band Neutrophils % 12 H* Lymphocytes % (Manual) 9 L Reactive Lymphs % 1 H Monocytes % (Manual) 8 Platelet Estimate Normal Anisocytosis (manual) Slight Sodium 128 L Potassium 4.0 Chloride 94 L Carbon Dioxide 28 Anion Gap 11 BUN 19 Creatinine 0.8 Est GFR ( Amer) > 60 Est GFR (Non-Af Amer) > 60 Random Glucose 111 H Calcium 7.6 L Phosphorus 2.9 Magnesium 2.0 Total Bilirubin 1.1 AST 56 ALT 33 Alkaline Phosphatase 235 H D Total Protein 6.8 Albumin 3.2 L Globulin 3.5 Albumin/Globulin Ratio 0.9 L Carcinoembryonic Ag Procalcitonin Critical Care Progress Note - Nutrition Nutrition: Nutrition Category Date Time Status NPO Diet [DIET] Diets 03/15/17 Breakfast Active Assessment/Plan - Assessment and Plan (Free Text) Assessment: Neuro: depression A&Ox3 Psych ([place]) Renal NGT low intermittent BUN/Cr: 19/0.8 Fluids, electrolytes, nutrition Electrolytes WNL except for mentioned below: * Na: 128 * Cl: 94 * Ca: 7.6 NPO Infectious disease: WBC: 16.9 band: 12 CXR: multiple pulmonary nodule 2-4 mm in diameter, bilateral patchy infiltrate. Procalcitonin: 0.41 Ceftriaxone 100mls/hr IV daily Flagyl 500 mg 100mls/hr IVPB Q8 Hematology: H&H: 12.0/36.8 Plt: 326 Heme ([place]) - Recommends liver biopsy, dedicated CT of chest with IV contrast CEA 2590.0 Further recommendation pending result of liver biopsy GI: colonic mass, small bowel obstruction, unintentional weight loss CEA: 2590.0 AST/ALT: 56/33 Al. phos.: 235 Tbili: 1.1 Guac + for occult blood GI ([place]) Flex. Sigmoidoscopy today NGT NPO Surgery ([facility]) Prophylaxis GI: Pantoprazole Sodium 100mls @ 10 mls/hr IVP Q 10hr MARC DVT: SCDs <Andrae Collins S - Last Filed: 03/16/17 16:28> CCU Objective - Vital Signs / Intake & Output Vital Signs (Last 4 hours): Vital Signs Pulse Resp BP Pulse Ox 03/16/17 15:30 114 H 29 H 95 03/16/17 15:20 112 H 27 H 96 03/16/17 15:10 116 H 16 96 03/16/17 15:02 111 H 20 124/88 95 03/16/17 15:00 112 H 20 96 03/16/17 14:57 115 H 95 03/16/17 14:10 120 H 28 H 97 03/16/17 14:00 111 H 17 96 03/16/17 13:59 108 H 28 H 138/85 96 03/16/17 13:50 110 H 16 96 03/16/17 13:40 120 H 25 H 97 03/16/17 13:30 110 H 16 96 03/16/17 13:20 108 H 13 95 03/16/17 13:10 106 H 21 97 03/16/17 13:00 105 H 25 H 128/84 97 03/16/17 12:50 102 H 16 95 03/16/17 12:40 103 H 22 97 03/16/17 12:30 99 H 20 96 Intake and Output (Last 8hrs): Intake & Output 03/16/17 03/16/17 03/16/17 06:59 14:59 22:59 Intake Total 1295 895 135 Output Total 525 302 0 Balance 770 593 135 Weight 220 lb 3.2 oz Intake: Intake, IV Amount 1295 895 135 Left Hand 70 70 10 Right Hand 1225 825 125 Output: Urine 525 300 Urine, Voided 525 300 Stool 0 2 0 - Medications Active Medications: Active Medications Generic Name Dose Route Start Last Admin Trade Name Freq PRN Reason Stop Dose Admin Erythromycin 1,000 mg 03/16/17 16:30 Erythromycin PO 03/16/17 16:31 ONCE ONE Erythromycin 1,000 mg 03/17/17 03:00 Erythromycin PO 03/17/17 03:01 ONCE ONE Heparin Sodium (Porcine) 5,000 units 03/15/17 10:00 03/15/17 10:44 Heparin SC 5,000 units Q12 MARC Administration Home Med 0 drop 03/15/17 21:15 03/16/17 09:58 Patient's Own Drops OU Not Given BID MARC Home Med 0 drop 03/15/17 22:00 03/15/17 21:54 Patient's Own Drops OU 1 drop HS MARC Administration Potassium Chloride/Dextrose 1,000 mls @ 125 mls/hr 03/15/17 06:45 03/16/17 16 :09 Potassium Chl 20 Meq In D5w IV Not Given .Q8H MARC Metronidazole 500 mg in 100 mls @ 100 mls/hr 03/15/17 14:00 03/16/17 13:07 Flagyl IVPB 100 mls/hr Q8 MARC Administration Cefepime HCl 2 gm in 100 mls @ 100 mls/hr 03/16/17 12:00 03/16/17 13:00 Maxipime Iv 2 Gm Premix IVPB 03/21/17 12:01 100 mls/hr Q8H MARC Administration Lorazepam 0.5 mg 03/16/17 18:00 Ativan IVP BID MARC Neomycin Sulfate 1,000 mg 03/16/17 16:30 Neomycin Tab PO 03/16/17 16:31 ONCE ONE Neomycin Sulfate 1,000 mg 03/17/17 03:00 Neomycin Tab PO 03/17/17 03:01 ONCE ONE Ondansetron HCl 4 mg 03/15/17 08:52 03/16/17 13:07 Zofran Inj IVP 4 mg Q4H PRN Administration Nausea/Vomiting Pantoprazole Sodium 40 mg 03/17/17 10:00 Protonix Inj IVP DAILY MARC - Patient Studies Lab Studies: Microbiology Studies 03/15/17 08:39 MRSA Culture (Admit) - Final [place] MRSA NOT DETECTED 03/15/17 09:44 Blood Culture - Preliminary Blood NO GROWTH AFTER 24 HOURS 03/15/17 09:44 Blood Culture - Preliminary Blood NO GROWTH AFTER 24 HOURS Lab Studies 03/16/17 03/16/17 03/15/17 Range/Units 06:30 06:27 18:45 WBC 16.9 H 16.5 H (4.8-10.8) K/uL RBC 4.89 5.27 (4.40-5.90) Mil/uL Hgb 12.0 12.5 D (12.0-18.0) g/dL Hct 36.8 39.0 (35.0-51.0) % MCV 75.3 L 74.1 L (80.0-94.0) fL MCH 24.6 L 23.7 L (27.0-31.0) pg MCHC 32.7 L 32.1 L (33.0-37.0) g/dL RDW 17.9 H 17.7 H (11.5-14.5) % Plt Count 326 346 D (130-400) K/uL MPV 8.5 7.5 (7.2-11.7) fL Neut % (Auto) 80.3 H (50.0-75.0) % Lymph % (Auto) 9.3 L (20.0-40.0) % [place] % (Auto) 9.7 (0.0-10.0) % Eos % (Auto) 0.4 (0.0-4.0) % Baso % (Auto) 0.3 (0.0-2.0) % Neut # 13.6 H (1.8-7.0) K/uL Lymph # 1.6 (1.0-4.3) K/uL [place] # 1.6 H (0.0-0.8) K/uL Eos # 0.1 (0.0-0.7) K/uL Baso # 0.0 (0.0-0.2) K/uL Neutrophils % (Manual) 70 (50-75) % Band Neutrophils % 12 H* (0-2) % Lymphocytes % (Manual) 9 L (20-40) % Reactive Lymphs % 1 H (0-0) % Monocytes % (Manual) 8 (0-10) % Platelet Estimate Normal (NORMAL) Anisocytosis (manual) Slight Sodium 128 L (132-148) mmol/L Potassium 4.0 (3.6-5.2) mmol/L Chloride 94 L (98-107) mmol/L Carbon Dioxide 28 (22-30) mmol/L Anion Gap 11 (10-20) BUN 19 (9-20) mg/dL Creatinine 0.8 (0.8-1.5) mg/dL Est GFR ( Amer) > 60 Est GFR (Non-Af Amer) > 60 Random Glucose 111 H (75-110) mg/dL Calcium 7.6 L (8.6-10.4) mg/dl Phosphorus 2.9 (2.5-4.5) mg/dL Magnesium 2.0 (1.6-2.3) mg/dL Total Bilirubin 1.1 (0.2-1.3) mg/dL AST 56 (17-59) U/L ALT 33 (21-72) U/L Alkaline Phosphatase 235 H D (38-126) U/L Total Protein 6.8 (6.3-8.3) g/dL Albumin 3.2 L (3.5-5.0) g/dL Globulin 3.5 (2.2-3.9) gm/dL Albumin/Globulin Ratio 0.9 L (1.0-2.1) Carcinoembryonic Ag (0-3.0) ng/mL Procalcitonin (0.19-0.49) NG/ML 03/15/17 03/15/17 Range/Units 18:45 10:06 WBC (4.8-10.8) K/uL RBC (4.40-5.90) Mil/uL Hgb (12.0-18.0) g/dL Hct (35.0-51.0) % MCV (80.0-94.0) fL MCH (27.0-31.0) pg MCHC (33.0-37.0) g/dL RDW (11.5-14.5) % Plt Count (130-400) K/uL MPV (7.2-11.7) fL Neut % (Auto) (50.0-75.0) % Lymph % (Auto) (20.0-40.0) % [place] % (Auto) (0.0-10.0) % Eos % (Auto) (0.0-4.0) % Baso % (Auto) (0.0-2.0) % Neut # (1.8-7.0) K/uL Lymph # (1.0-4.3) K/uL [place] # (0.0-0.8) K/uL Eos # (0.0-0.7) K/uL Baso # (0.0-0.2) K/uL Neutrophils % (Manual) (50-75) % Band Neutrophils % (0-2) % Lymphocytes % (Manual) (20-40) % Reactive Lymphs % (0-0) % Monocytes % (Manual) (0-10) % Platelet Estimate (NORMAL) Anisocytosis (manual) Sodium (132-148) mmol/L Potassium (3.6-5.2) mmol/L Chloride (98-107) mmol/L Carbon Dioxide (22-30) mmol/L Anion Gap (10-20) BUN (9-20) mg/dL Creatinine (0.8-1.5) mg/dL Est GFR ( Amer) Est GFR (Non-Af Amer) Random Glucose (75-110) mg/dL Calcium (8.6-10.4) mg/dl Phosphorus (2.5-4.5) mg/dL Magnesium (1.6-2.3) mg/dL Total Bilirubin (0.2-1.3) mg/dL AST (17-59) U/L ALT (21-72) U/L Alkaline Phosphatase (38-126) U/L Total Protein (6.3-8.3) g/dL Albumin (3.5-5.0) g/dL Globulin (2.2-3.9) gm/dL Albumin/Globulin Ratio (1.0-2.1) Carcinoembryonic Ag 2590.0 H (0-3.0) ng/mL Procalcitonin 0.41 (0.19-0.49) NG/ML Laboratory Results - last 24 hr 03/15/17 03/15/17 03/15/17 10:06 18:45 18:45 WBC 16.5 H RBC 5.27 Hgb 12.5 D Hct 39.0 MCV 74.1 L MCH 23.7 L MCHC 32.1 L RDW 17.7 H Plt Count 346 D MPV 7.5 Neut % (Auto) Lymph % (Auto) [place] % (Auto) Eos % (Auto) Baso % (Auto) Neut # Lymph # [place] # Eos # Baso # Neutrophils % (Manual) Band Neutrophils % Lymphocytes % (Manual) Reactive Lymphs % Monocytes % (Manual) Platelet Estimate Anisocytosis (manual) Sodium Potassium Chloride Carbon Dioxide Anion Gap BUN Creatinine Est GFR ( Amer) Est GFR (Non-Af Amer) Random Glucose Calcium Phosphorus Magnesium Total Bilirubin AST ALT Alkaline Phosphatase Total Protein Albumin Globulin Albumin/Globulin Ratio Carcinoembryonic Ag 2590.0 H Procalcitonin 0.41 03/16/17 03/16/17 06:27 06:30 WBC 16.9 H RBC 4.89 Hgb 12.0 Hct 36.8 MCV 75.3 L MCH 24.6 L MCHC 32.7 L RDW 17.9 H Plt Count 326 MPV 8.5 Neut % (Auto) 80.3 H Lymph % (Auto) 9.3 L [place] % (Auto) 9.7 Eos % (Auto) 0.4 Baso % (Auto) 0.3 Neut # 13.6 H Lymph # 1.6 [place] # 1.6 H Eos # 0.1 Baso # 0.0 Neutrophils % (Manual) 70 Band Neutrophils % 12 H* Lymphocytes % (Manual) 9 L Reactive Lymphs % 1 H Monocytes % (Manual) 8 Platelet Estimate Normal Anisocytosis (manual) Slight Sodium 128 L Potassium 4.0 Chloride 94 L Carbon Dioxide 28 Anion Gap 11 BUN 19 Creatinine 0.8 Est GFR ( Amer) > 60 Est GFR (Non-Af Amer) > 60 Random Glucose 111 H Calcium 7.6 L Phosphorus 2.9 Magnesium 2.0 Total Bilirubin 1.1 AST 56 ALT 33 Alkaline Phosphatase 235 H D Total Protein 6.8 Albumin 3.2 L Globulin 3.5 Albumin/Globulin Ratio 0.9 L Carcinoembryonic Ag Procalcitonin Critical Care Progress Note - Nutrition Nutrition: Nutrition Category Date Time Status NPO Diet [DIET] Diets 03/16/17 Breakfast Active Attending/Attestation - Attestation I have personally seen and examined this patient.: Yes I have fully participated in the care of the patient.: Yes I have reviewed all pertinent clinical information: Yes Notes (Text): 03/16/17 16:27 patient seen and examined in the intensive care unit. Status post sigmoidoscopy and biopsy of large fungating mass Possible surgery tomorrow Seen by infectious disease for elevated white count
--- NOTE | 2017-03-16 12:37 | CP.PCM.CON ---
History of Present Illness - History of Present Illness History of Present Illness: dictated Past Patient History - Tetanus Immunizations Tetanus Immunization: Unknown - Past Medical History & Family History Past Medical History?: Yes - Past Social History Smoking Status: Never Smoked Alcohol: None Home Situation {Lives}: With Family Domestic Violence: Negative - CARDIAC Hx Cardiac Disorders: No - PULMONARY Hx Respiratory Disorders: No - NEUROLOGICAL Hx Neurological Disorder: No - HEENT Hx HEENT Problems: Yes Hx Glaucoma: Yes - RENAL Hx Chronic Kidney Disease: No - ENDOCRINE/METABOLIC Hx Endocrine Disorders: No - HEMATOLOGICAL/ONCOLOGICAL Hx Blood Disorders: No - INTEGUMENTARY Hx Dermatological Problems: No - MUSCULOSKELETAL/RHEUMATOLOGICAL Hx Falls: Yes (work accident) - GASTROINTESTINAL Hx Gastrointestinal Disorders: Yes Hx Constipation: Yes - GENITOURINARY/GYNECOLOGICAL Hx Genitourinary Disorders: No - PSYCHIATRIC Hx Psychophysiologic Disorder: Yes Hx Depression: Yes - SURGICAL HISTORY Hx Surgeries: Yes (SEE COMMENT) Hx Orthopedic Surgery: Yes (BILAT WRIST, right hip surgery s/p work accident) Other/Comment: left knee degloving, exploratory lap s/p work accident - ANESTHESIA Hx Anesthesia: Yes Hx Anesthesia Reactions: No Hx Malignant Hyperthermia: No Has any member of the family had a problem w/ anesthesia?: No Meds Allergies/Adverse Reactions: Allergies Allergy/AdvReac Type Severity Reaction Status Date / Time Penicillins Allergy RASH Verified 03/15/17 04:29 - Medications Medications: Current Medications Heparin Sodium (Porcine) (Heparin) 5,000 units SC Q12 [facility] Last Admin: 03/15/17 10:44 Dose: 5,000 units Home Med (Patient's Own Drops) 0 drop OU BID [facility] Last Admin: 03/16/17 09:58 Dose: Not Given Home Med (Patient's Own Drops) 0 drop OU HS [facility] Last Admin: 03/15/17 21:54 Dose: 1 drop Potassium Chloride/Dextrose (Potassium Chl 20 Meq In D5w) 1,000 mls @ 125 mls/ hr IV .Q8H [facility] Last Admin: 03/16/17 11:23 Dose: 125 mls/hr Metronidazole (Flagyl) 500 mg in 100 mls @ 100 mls/hr IVPB Q8 [facility] Last Admin: 03/16/17 05:55 Dose: 100 mls/hr Pantoprazole Sodium 80 mg/ (Sodium Chloride) 100 mls @ 10 mls/hr IV .Q10H [facility] PRN Reason: 8 MG/HR Last Admin: 03/16/17 08:46 Dose: 10 mls/hr Cefepime HCl (Maxipime Iv 2 Gm Premix) 2 gm in 100 mls @ 100 mls/hr IVPB Q8H MARC Stop: 03/21/17 12:01 Ondansetron HCl (Zofran Inj) 4 mg IVP Q4H PRN PRN Reason: Nausea/Vomiting Results - Vital Signs Recent Vital Signs: Last Vital Signs Temp 97.8 F 03/16/17 11:46 Pulse 100 H 03/16/17 11:46 Resp 23 03/16/17 11:46 BP 112/61 03/16/17 11:46 Pulse Ox 100 03/16/17 11:46 - Labs Result Diagrams: 03/16/17 06:27 03/16/17 06:30 Labs: Laboratory Results - last 24 hr 03/15/17 03/15/17 03/15/17 10:06 18:45 18:45 WBC 16.5 H RBC 5.27 Hgb 12.5 D Hct 39.0 MCV 74.1 L MCH 23.7 L MCHC 32.1 L RDW 17.7 H Plt Count 346 D MPV 7.5 Neut % (Auto) Lymph % (Auto) [place] % (Auto) Eos % (Auto) Baso % (Auto) Neut # Lymph # [place] # Eos # Baso # Neutrophils % (Manual) Band Neutrophils % Lymphocytes % (Manual) Reactive Lymphs % Monocytes % (Manual) Platelet Estimate Anisocytosis (manual) Sodium Potassium Chloride Carbon Dioxide Anion Gap BUN Creatinine Est GFR ( Amer) Est GFR (Non-Af Amer) Random Glucose Calcium Phosphorus Magnesium Total Bilirubin AST ALT Alkaline Phosphatase Total Protein Albumin Globulin Albumin/Globulin Ratio Carcinoembryonic Ag 2590.0 H Procalcitonin 0.41 03/16/17 03/16/17 06:27 06:30 WBC 16.9 H RBC 4.89 Hgb 12.0 Hct 36.8 MCV 75.3 L MCH 24.6 L MCHC 32.7 L RDW 17.9 H Plt Count 326 MPV 8.5 Neut % (Auto) 80.3 H Lymph % (Auto) 9.3 L [place] % (Auto) 9.7 Eos % (Auto) 0.4 Baso % (Auto) 0.3 Neut # 13.6 H Lymph # 1.6 [place] # 1.6 H Eos # 0.1 Baso # 0.0 Neutrophils % (Manual) 70 Band Neutrophils % 12 H* Lymphocytes % (Manual) 9 L Reactive Lymphs % 1 H Monocytes % (Manual) 8 Platelet Estimate Normal Anisocytosis (manual) Slight Sodium 128 L Potassium 4.0 Chloride 94 L Carbon Dioxide 28 Anion Gap 11 BUN 19 Creatinine 0.8 Est GFR ( Amer) > 60 Est GFR (Non-Af Amer) > 60 Random Glucose 111 H Calcium 7.6 L Phosphorus 2.9 Magnesium 2.0 Total Bilirubin 1.1 AST 56 ALT 33 Alkaline Phosphatase 235 H D Total Protein 6.8 Albumin 3.2 L Globulin 3.5 Albumin/Globulin Ratio 0.9 L Carcinoembryonic Ag Procalcitonin
[2017-03-16] MEDS: Cefepime IV 2 gm in Dextrose 2 GM/100 ML BAG IVPB SCH ×2 (13:00→20:33)
--- NOTE | 2017-03-16 14:31 | CP.PCM.PN ---
<Michael Granda - Last Filed: 03/16/17 14:53> Subjective - Date & Time of Evaluation Date of Evaluation: 03/16/17 Time of Evaluation: 11:30 - Subjective Subjective: General Surgery Note for Dr. Steinberg Patient seen and examined at bedside. No acute event overnight. Patient still has not had BM. Denies pain. Patient went for colonoscopy today which showed mass in descending/sigmoid colon mass. Patient is NPO. No other complaints at this time. Objective - Vital Signs/Intake and Output Vital Signs (last 24 hours): Temp Pulse Resp BP Pulse Ox 97.8 F 106 H 21 128/84 97 03/16/17 11:46 03/16/17 13:10 03/16/17 13:10 03/16/17 13:00 03/16/17 13:10 Intake and Output: 03/16/17 03/16/17 06:59 18:59 Intake Total 1670 775 Output Total 525 302 Balance 1145 473 - Medications Medications: Current Medications Heparin Sodium (Porcine) (Heparin) 5,000 units SC Q12 [facility] Last Admin: 03/15/17 10:44 Dose: 5,000 units Home Med (Patient's Own Drops) 0 drop OU BID [facility] Last Admin: 03/16/17 09:58 Dose: Not Given Home Med (Patient's Own Drops) 0 drop OU HS [facility] Last Admin: 03/15/17 21:54 Dose: 1 drop Potassium Chloride/Dextrose (Potassium Chl 20 Meq In D5w) 1,000 mls @ 125 mls/ hr IV .Q8H [facility] Last Admin: 03/16/17 11:23 Dose: 125 mls/hr Metronidazole (Flagyl) 500 mg in 100 mls @ 100 mls/hr IVPB Q8 [facility] Last Admin: 03/16/17 13:07 Dose: 100 mls/hr Pantoprazole Sodium 80 mg/ (Sodium Chloride) 100 mls @ 10 mls/hr IV .Q10H [facility] PRN Reason: 8 MG/HR Last Admin: 03/16/17 12:59 Dose: Not Given Cefepime HCl (Maxipime Iv 2 Gm Premix) 2 gm in 100 mls @ 100 mls/hr IVPB Q8H [facility] Stop: 03/21/17 12:01 Last Admin: 03/16/17 13:00 Dose: 100 mls/hr Lorazepam (Ativan) 0.5 mg IVP BID [facility] Ondansetron HCl (Zofran Inj) 4 mg IVP Q4H PRN PRN Reason: Nausea/Vomiting Last Admin: 03/16/17 13:07 Dose: 4 mg - Labs Labs: 03/16/17 06:27 03/16/17 06:30 PT 13.9 SECONDS (9.7-12.2) H 03/15/17 04:47 INR 1.2 03/15/17 04:47 APTT 29 SECONDS (21-34) D 03/15/17 10:06 - Constitutional Appears: No Acute Distress - Head Exam Head Exam: ATRAUMATIC, NORMOCEPHALIC - Eye Exam Eye Exam: Normal appearance - ENT Exam ENT Exam: Mucous Membranes Moist - Respiratory Exam Respiratory Exam: NORMAL BREATHING PATTERN - Cardiovascular Exam Cardiovascular Exam: REGULAR RHYTHM - GI/Abdominal Exam GI & Abdominal Exam: Distended, Soft, Tenderness, Normal Bowel Sounds. absent: Firm, Guarding, Rigid, Rebound Additional comments: midline scar tympany - Neurological Exam Neurological Exam: Alert, Awake, Oriented x3 - Psychiatric Exam Psychiatric exam: Normal Affect, Normal Mood - Skin Skin Exam: Dry, Intact, Normal Color, Warm Assessment and Plan - Assessment and Plan (Free Text) Plan: 62 M with descending/sigmoid colon mass and SBO -NPO Past MN -Plan for colectomy in OR -IV fluids -IV antibiotics -NGT to low cont suction -colonoscopy shows fungating mass in descending/sigmoid colon -Medical management as per ICU -Discussed with Dr. Maryan Granda PGY1 <Trace Steinberg - Last Filed: 03/19/17 21:49> Objective - Vital Signs/Intake and Output Vital Signs (last 24 hours): Temp Pulse Resp BP Pulse Ox 100.2 F H 97 H 13 111/64 96 03/19/17 20:00 03/19/17 21:00 03/19/17 21:00 03/19/17 21:03 03/19/17 21:00 Intake and Output: 03/19/17 03/20/17 18:59 06:59 Intake Total 2090.6 589 Output Total 620 320 Balance 1470.6 269 - Medications Medications: Current Medications Albuterol/Ipratropium (Duoneb 3 Mg/0.5 Mg (3 Ml) Ud) 3 ml INH RQ6 [facility] Last Admin: 03/19/17 20:36 Dose: 3 ml Enoxaparin Sodium (Lovenox) 30 mg SC DAILY [facility] Last Admin: 03/19/17 10:05 Dose: 30 mg Home Med (Patient's Own Drops) 0 drop OU BID [facility] Last Admin: 03/19/17 18:12 Dose: 1 drop Home Med (Patient's Own Drops) 0 drop OU HS [facility] Last Admin: 03/18/17 23:48 Dose: 1 drop Metronidazole (Flagyl) 500 mg in 100 mls @ 100 mls/hr IVPB Q8 [facility] Last Admin: 03/19/17 14:29 Dose: 100 mls/hr Cefepime HCl (Maxipime Iv 2 Gm Premix) 2 gm in 100 mls @ 100 mls/hr IVPB Q8H [facility] Stop: 03/21/17 12:01 Last Admin: 03/19/17 20:31 Dose: 100 mls/hr BUPIVACAINE 0.125%/0.9% NACL (Bupivacaine-Ns 0.125% On-Q Ventilating Expert) 600 mls @ 4 mls/ hr IJ ONCE ONE Stop: 03/24/17 01:30 Last Admin: 03/17/17 20:32 Dose: 4 mls/hr Propofol (Diprivan) 1,000 mg in 100 mls @ 2.693 mls/hr IV .Q24H [facility]; Protocol; 5 MCG/KG/MIN PRN Reason: TITRATE PER MD ORDER Fentanyl Citrate 2,500 mcg/ (Dextrose) 250 mls @ 17.95 mls/hr IV .[id number] PRN; 2 MCG/KG/HR PRN Reason: Protocol Last Admin: 03/19/17 20:30 Dose: 1 mcg/kg/hr, 8.97 mls/hr Lactated Ringer's (Lactated Ringer's) 1,000 mls @ 100 mls/hr IV .Q10H [facility] Last Admin: 03/19/17 20:22 Dose: Not Given Vancomycin/Sodium Chloride (Vancomycin 1 Gm/Ns 200 Ml) 1 gm in 200 mls @ 166.7 mls/hr IVPB Q12H [facility] Stop: 03/24/17 12:01 Last Admin: 03/19/17 12:37 Dose: 166.7 mls/hr Lorazepam (Ativan) 0.5 mg IVP BID [facility] Last Admin: 03/19/17 17:59 Dose: Not Given Metoprolol Tartrate (Lopressor) 5 mg IVP Q6 [facility] Last Admin: 03/19/17 18:12 Dose: 5 mg Ondansetron HCl (Zofran Inj) 4 mg IVP Q4H PRN PRN Reason: Nausea/Vomiting Last Admin: 03/16/17 13:07 Dose: 4 mg Pantoprazole Sodium (Protonix Inj) 40 mg IVP DAILY [facility] Last Admin: 03/19/17 10:05 Dose: 40 mg - Labs Labs: 03/19/17 06:39 03/19/17 06:39 PT 19.4 SECONDS (9.7-12.2) H D 03/17/17 20:14 INR 1.7 D 03/17/17 20:14 APTT 35 SECONDS (21-34) H D 03/17/17 20:14 Attending/Attestation - Attestation I have personally seen and examined this patient.: Yes I have fully participated in the care of the patient.: Yes I have reviewed all pertinent clinical information, including history, physical exam and plan: Yes Notes (Text): Pt was seen and examined at bedside Agree with above note and assessment Pt with LBO s/p sigmoidoscopy OR tomorrow for Exp lap and colon resection consent IV antibiotics C/w current mx NPO,IVF Plan d.w pt and in detail Risk and benefit explained in detail.
--- NOTE | 2017-03-16 15:06 | PCM.PSYCH ---
Initial Psychiatric Evaluation - Initial Psychiatric Evaluation Type of Admission: Voluntary Legal Status: Capacity Chief Complaint (in patient's own words): "I am worried about the procedure" History of Present Illness and Precipitating Events: Psych Consult: Depression The pt is seen, chart reviewed, case discussed with staff. Consultation is requested for his mood sxs Patient is a 62 year old man who is currently experiencing anxiety and depression. He is and lives with his . Currently he is unemployed. He states that he is feeling depressed and anxious since being in the hospital. Patient says he is "very nervous about his health and is expecting the worst." He denies a previous history of depression. He had a panic attack two years ago while in [place] for which he was hospitalized over night. He does not have any follow up with a psychiatrist and is currently on no medication for anxiety and depression. Currently the patient states is "feeling depressed and anxious out of fear for his health." He denies S/I, hallucinations, or paranoia. He denies any use of drugs, alcohol, or tobacco products. PMH: Glaucoma Psych hx: 1 panic attack in 2016 Family Psych Hx: Denies Current Medications: Active Medications Generic Name Dose Route Start Last Admin Trade Name Freq PRN Reason Stop Dose Admin Heparin Sodium (Porcine) 5,000 units 03/15/17 10:00 03/15/17 10:44 Heparin SC 5,000 units Q12 [facility] Administration Home Med 0 drop 03/15/17 21:15 03/16/17 09:58 Patient's Own Drops OU Not Given BID [facility] Home Med 0 drop 03/15/17 22:00 03/15/17 21:54 Patient's Own Drops OU 1 drop HS [facility] Administration Potassium Chloride/Dextrose 1,000 mls @ 125 mls/hr 03/15/17 06:45 03/16/17 11 :23 Potassium Chl 20 Meq In D5w IV 125 mls/hr .Q8H [facility] Administration Metronidazole 500 mg in 100 mls @ 100 mls/hr 03/15/17 14:00 03/16/17 13:07 Flagyl IVPB 100 mls/hr Q8 [facility] Administration Pantoprazole Sodium 80 mg/ 100 mls @ 10 mls/hr 03/15/17 16:00 03/16/17 12:59 Sodium Chloride IV Not Given .Q10H [facility] 8 MG/HR Cefepime HCl 2 gm in 100 mls @ 100 mls/hr 03/16/17 12:00 03/16/17 13:00 Maxipime Iv 2 Gm Premix IVPB 03/21/17 12:01 100 mls/hr Q8H [facility] Administration Lorazepam 0.5 mg 03/16/17 18:00 Ativan IVP BID [facility] Ondansetron HCl 4 mg 03/15/17 08:52 03/16/17 13:07 Zofran Inj IVP 4 mg Q4H PRN Administration Nausea/Vomiting Past Psychiatric History - Past Psychiatric History Pertinent Medical Hx (Current Medical&Sleep Prob, Allergies): Allergies Allergy/AdvReac Type Severity Reaction Status Date / Time Penicillins Allergy RASH Verified 03/15/17 04:29 Brimonidine Tartrate/Timolol [Combigan 0.2%-0.5% Eye Drops] 5 ml OP BID Travoprost [Travatan Z] 2.5 ml OP 03/15/17 Review of Systems - Review of Systems All systems: reviewed and no additional remarkable complaints except - Neurological Neurological: UNREMARKABLE - Psychiatric Psychiatric: Anxiety, Depression, Hopelessness. absent: Hallucinations, Homicidal Ideation, Paranoia, Suicidal Ideation Mental Status Examination - Personal Presentation Personal Presentation: Looks stated age - Affect Affect: Constricted, Depressed - Motor Activity Motor Activity: Calm - Reliability in Providing Information Reliability in Providing Information: Good - Speech Speech: Organized - Mood Mood: Depressed - Formal Thought Process Formal Thought Process: No Impairment - Cognitive Functions Orientation: Person, Place, Situation, Time Sensorium: Alert Attention/Concentration: Attentive Abstract Thinking: [place] - Risk Risk: Diminished functioning DSM 5 DX - DSM 5 DSM 5 Diagnosis: Adjustment disorder w/ Anxiety and depression - Recommended/Plan of Treatment Treatment Recommendations and Plan of Treatment: Patient started on Ativan 0.5mg BID IV as he is NPO - pls switch to PO later Psychoeducation and support Encourage compliance with meds and after care Will teach healthy lifestyle methods, i.e. diet and meditation 33 min
--- NOTE | 2017-03-16 17:11 | CP.PCM.PN ---
Subjective - Date & Time of Evaluation Date of Evaluation: 03/16/17 Time of Evaluation: 10:00 - Subjective Subjective: Seen and examined this morning He is very anxious about his procedure and his colon mass. He denies pain,s/p BM Objective - Vital Signs/Intake and Output Vital Signs (last 24 hours): Temp Pulse Resp BP Pulse Ox 98.5 F 119 H 19 146/89 95 03/16/17 12:00 03/16/17 16:50 03/16/17 16:50 03/16/17 16:02 03/16/17 16:50 Intake and Output: 03/16/17 03/16/17 06:59 18:59 Intake Total 1670 1155 Output Total 525 602 Balance 1145 553 - Medications Medications: Current Medications Erythromycin (Erythromycin) 1,000 mg PO ONCE ONE Stop: 03/17/17 03:01 Heparin Sodium (Porcine) (Heparin) 5,000 units SC Q12 [facility] Last Admin: 03/15/17 10:44 Dose: 5,000 units Home Med (Patient's Own Drops) 0 drop OU BID [facility] Last Admin: 03/16/17 09:58 Dose: Not Given Home Med (Patient's Own Drops) 0 drop OU HS [facility] Last Admin: 03/15/17 21:54 Dose: 1 drop Potassium Chloride/Dextrose (Potassium Chl 20 Meq In D5w) 1,000 mls @ 125 mls/ hr IV .Q8H [facility] Last Admin: 03/16/17 16:09 Dose: Not Given Metronidazole (Flagyl) 500 mg in 100 mls @ 100 mls/hr IVPB Q8 [facility] Last Admin: 03/16/17 13:07 Dose: 100 mls/hr Cefepime HCl (Maxipime Iv 2 Gm Premix) 2 gm in 100 mls @ 100 mls/hr IVPB Q8H [facility] Stop: 03/21/17 12:01 Last Admin: 03/16/17 13:00 Dose: 100 mls/hr Lorazepam (Ativan) 0.5 mg IVP BID [facility] Neomycin Sulfate (Neomycin Tab) 1,000 mg PO ONCE ONE Stop: 03/17/17 03:01 Ondansetron HCl (Zofran Inj) 4 mg IVP Q4H PRN PRN Reason: Nausea/Vomiting Last Admin: 03/16/17 13:07 Dose: 4 mg Pantoprazole Sodium (Protonix Inj) 40 mg IVP DAILY [facility] - Labs Labs: 03/16/17 06:27 03/16/17 06:30 PT 13.9 SECONDS (9.7-12.2) H 03/15/17 04:47 INR 1.2 03/15/17 04:47 APTT 29 SECONDS (21-34) D 03/15/17 10:06 - Constitutional Appears: Non-toxic - Head Exam Head Exam: NORMAL INSPECTION - Eye Exam Eye Exam: Normal appearance - ENT Exam ENT Exam: Mucous Membranes Moist - Neck Exam Neck Exam: Full ROM, Normal Inspection - Respiratory Exam Respiratory Exam: Clear to Ausculation Bilateral, NORMAL BREATHING PATTERN - Cardiovascular Exam Cardiovascular Exam: REGULAR RHYTHM - GI/Abdominal Exam GI & Abdominal Exam: Distended, Soft, Diminished Bowel Sounds. absent: Tenderness - Back Exam Back Exam: NORMAL INSPECTION - Neurological Exam Neurological Exam: Awake, Oriented x3 - Psychiatric Exam Psychiatric exam: Anxious - Skin Skin Exam: Dry Assessment and Plan - Assessment and Plan (Free Text) Plan: h 1.Colon mass with obstruction NG tube decompression NPO and IV fluids Surgery consult Dr Steinberg GI consult DR Esparza s/p sigmoidoscopy and biopsy . plan for colectomy tomorrow 2. Coffee ground emesis NPO,protonix drip,type and screen done Monitor H/H,continue fluids 3.Leukocytosis with bands d/w Dr Hutchins Pt tolerated ceftriaxone,started on Cefepime continue flagyl 4.DVT prophylaxis-SCDs GI prophylaxis-Protonix 5.Liver and lung mass likely metastatic ca Dr dumont/oncology consult 6.Anxiety-seen by psychiatrist
[2017-03-16 18:23] LABS: SQUAMOUS EPITHIAL 1 /hpf (0-5); URINE BACTERIA FEW (<OCC); URINE BILIRUBIN NEGATIVE (NEGATIVE); URINE BLOOD NEGATIVE (NEGATIVE); URINE CLARITY Clear (Clear); URINE COLOR Amber (YELLOW); URINE GLUCOSE (UA) NORMAL (Normal); URINE LEUKOCYTE ESTERASE 2+ Leu/uL (Negative); URINE NITRATE NEGATIVE (NEGATIVE); URINE PROTEIN 1+ mg/dL (NEGATIVE)
[2017-03-16] MEDS ORDERED: ERYTHROMYCIN E SUCC 200 MG/5 ML NG ONE (20:15)
--- NOTE | 2017-03-16 21:17 | CON ---
DATE: INFECTIOUS DISEASE CONSULTATION REQUESTED BY: Dr. Gomez. 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 He also has history of exploratory lap 20 years ago and history of glaucoma. He says the only thing he uses is the eyedrops at home. Presented with vomiting, which was blackish and right now, he is on NG suction and he is obstructed and he just came back from a sigmoidoscopy which was done today and he was admitted with history of 1 week of not having bowel movements and also he was constipated and having vomitus of black-colored stools. He also had a CAT scan done, which showed colonic mass and air-fluid levels and he is n.p.o., on NG tube and is being followed by the surgeon. I am asked to evaluate for antibiotics as there is severe bandemia. He does tell me that he has had problems with penicillin. He developed a rash after penicillin was given and he has tolerated Rocephin, however, well when given in the ER. PAST MEDICAL HISTORY: His past medical history is significant for glaucoma. PAST SURGICAL HISTORY: For left hip surgery, DVT, IVC filter. He also has history of skin graft, exploratory lap 20 years ago, and history of back problems. SOCIAL HISTORY: He lives with his . He is unemployed. He does not do any alcohol, drugs or smoking, but 10 years ago, he said he used to do marijuana and smoked marijuana and has medications he takes for glaucoma. FAMILY HISTORY: His father at age of 45 from diabetes mellitus. No malignancy. No other family history is available at this time. REVIEW OF SYSTEMS: He does have a history of anorexia. Has no fever or chills. No ear, nose, throat problems. No chest pain. No shortness of breath. GI richards, he has been constipated with vomiting, abdominal pain, and no diarrhea reported. Denies any urinary symptoms, but he says he saw a urologist . Musculoskeletal: No problems with joint pains. No skin problems at this time. He does have abnormal gait due to the left hip surgery he had in the past. He does give history of poor appetite. ALLERGIES: REPORTED. MEDICATIONS: At the present time, we just changed it to cefepime q. 8 hours, heparin, home meds, and he is on Flagyl, Zofran, pantoprazole, and potassium. He is getting on the IV fluids. He was on ceftriaxone before. PHYSICAL EXAMINATION: VITAL SIGNS: I find his temperature is 97.8. He did not have any fever. He is sitting in the chair after the sigmoidoscopy right now. T-max 97.8, pulse is 100, blood pressure 112/61, respirations are 20. Vitals are stable. HEENT: Head is atraumatic, normocephalic. Pupils are reacting to light and he has an NG tube. He was also given enema before when prophylactic and they did a sigmoid biopsy, I think. NECK: Supple. Tongue is moist. JVP is flat. LUNGS: Have occasional wheeze bilaterally. HEART: S1 and S2 are regular. No murmurs appreciated. ABDOMEN: Soft, distention is there and there are decreased bowel sounds. At this time, he is sitting, but he says he is passing gas. EXTREMITIES: Have no edema, clubbing, or cyanosis. He just had a sigmoidoscopy. LABORATORY DATA: Labs are noted. Labs are white count is 16.9, hemoglobin is 12, hematocrit 36.8, platelet count is 326, bands were 12 today. He was only on Rocephin and Flagyl. Now, we have changed it to Maxipime and Flagyl. His sodium is 128, needs to be corrected. His CEA level came out 2590. Gastric occult blood was positive. Alk phos is 235. Abdomen and pelvic CT shows there is left lower quadrant colonic hyperdense mass measuring 4.6 x 5.1 x 7, suspicious for colon cancer with partial or early colonic obstruction. There are paracolic mesenteric soft tissue density representing omental infiltration with versus lymph nodes. There are dilated, fluid-filled small bowel loops with air-fluid levels measuring 3.8, so there is air-fluid level. There is a large amount of stool in the colon. There are bilateral numerous pulmonary nodules and the thinking of hematogenous spread of infection, fungal or metastasis. He has left hilar lymph nodes also positive and liver with multiple ill-defined masses. ASSESSMENT: Overall, this patient is here with large bowel obstruction. He does have lymphadenopathy, pulmonary mass, pulmonary nodules as well as liver suspicious, I think, for a mass with the whole history and CEA is elevated. We will follow. PLAN: Right now, we had put him on Maxipime and Flagyl. The dose is high, but once the bandemia clears, we can decrease it to q. 12 and he also had Dopplers done today of the lower extremities, which showed no evidence of deep venous thrombosis of left lower extremity. So at this time, we will continue with these antibiotics and we will follow as he is with obstruction and may have malignancy as all the results are pointing towards it. Cadence Hutchins MD
[2017-03-16] MEDS: TRAVATAN OU SCH (22:55)
[2017-03-17] MEDS: Potassium Ch 20mEq in D5W 1,000 ML IV SCH ×2 (01:00→06:35)
[2017-03-17] MEDS ORDERED: ERYTHROMYCIN E SUCC 200 MG/5 ML NG ONE (03:00)
[2017-03-17] MEDS: Cefepime IV 2 gm in Dextrose 2 GM/100 ML BAG IVPB SCH ×3 (04:08→20:34)
[2017-03-17] MEDS: metroNIDAZOLE IV 500 mg/100 ml 500 MG/100 ML BAG IVPB SCH ×3 (05:04→21:45)
[2017-03-17 06:49] LABS: BASO # 0.1 K/uL (0.0-0.2); BASO % 0.3 % (0.0-2.0); EOS % 0.2 % (0.0-4.0); HEMOGLOBIN 11.8 g/dL (12.0-18.0); LYMPH # 1.5 K/uL (1.0-4.3); LYMPH % 7.4 % (20.0-40.0); MEAN CELL VOLUME 75.5 fL (80.0-94.0); MEAN CORPUSCULAR HEMOGLOBIN 24.3 pg (27.0-31.0); MEAN CORPUSCULAR HGB CONC 32.2 g/dL (33.0-37.0); MEAN PLATELET VOLUME 8.8 fL (7.2-11.7); MONO # 2.3 K/uL (0.0-0.8); MONO % 11.9 % (0.0-10.0); NEUT # 15.7 K/uL (1.8-7.0); NEUT % 80.2 % (50.0-75.0); PLATELET COUNT 284 K/uL (130-400); RBC 4.85 Mil/uL (4.40-5.90); RED CELL DISTRIBUTION WIDTH 17.8 % (11.5-14.5); WHITE BLOOD COUNT 19.6 K/uL (4.8-10.8)
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
[2017-03-17 07:13] LABS: ALB/GLOB RATIO 0.9 (1.0-2.1); ALBUMIN 3.4 g/dL (3.5-5.0); ALT/SGPT 27 U/L (21-72); AST/SGOT 69 U/L (17-59); BLOOD UREA NITROGEN 14 mg/dL (9-20); CALCIUM 8.5 mg/dl (8.6-10.4); GFR AFRICAN-AMERICAN > 60; GFR NON-AFRICAN AMERICAN > 60; MAGNESIUM 1.9 mg/dL (1.6-2.3)
[2017-03-17 08:56] LABS: ANISOCYTOSIS SLIGHT; BANDS 13 % (0-2); EOSINOPHIL 1 % (0-4); HYPOCHROMIC SLIGHT; LYMPHOCYTE 9 % (20-40); MONOCYTE 7 % (0-10); NEUTROPHIL 70 % (50-75); PLATELET ESTIMATE NORMAL (NORMAL); POLYCHROMIC SLIGHT; TARGET CELLS SLIGHT; TOTAL CELLS COUNTED 100
--- NOTE | 2017-03-17 09:04 | CP.CCUPN ---
<Luis Kelly - Last Filed: 03/17/17 10:56> CCU Subjective - Physician Review Events Since Last Encounter (Free Text): 03/17/17 08:59 Patient seen and examined at bedside Doing well with no complaints at this time NGT bowel prep OR today at 1 pm 03/17/17 10:56 hyponatremic, will d/c d5W and change to D5NS @ 125 CCU Objective - Vital Signs / Intake & Output Vital Signs (Last 4 hours): Vital Signs Temp Pulse Resp BP Pulse Ox 03/17/17 08:00 97.9 F 117 H 20 160/95 H 97 03/17/17 06:02 111 H 18 97 03/17/17 06:00 98.4 F 113 H 23 98 03/17/17 05:02 114 H 22 147/96 H 96 03/17/17 05:00 114 H 22 97 Intake and Output (Last 8hrs): Intake & Output 03/16/17 03/17/17 03/17/17 22:59 06:59 14:59 Intake Total 757 1325 125 Output Total 50 450 Balance 707 875 125 Weight 197 lb 14.4 oz Intake: Intake, IV Amount 757 1325 125 Left Hand 132 200 Right Hand 625 1125 125 Output: Urine 450 Urine, Voided 450 Stool 0 Urine/Stool Mix 50 Other: # Bowel Movements 1 - Physical Exam Head: Positive for: Atraumatic, Normocephalic Pupils: Positive for: PERRL Extroacular Muscles: Positive for: EOMI Conjunctiva: Positive for: Normal Mouth: Positive for: Moist Mucous Membranes Neck: Positive for: Normal Range of Motion Respiratory/Chest: Positive for: Clear to Auscultation, Accessory Muscle Use Cardiovascular: Positive for: Regular Rate and Rhythm Abdomen: Positive for: Normal Bowel Sounds. Negative for: Tenderness, Distention, Peritoneal Signs Lower Extremity: Positive for: Other (tvp) Psychiatric: Positive for: Alert, Oriented x 3 - Medications Active Medications: Active Medications Generic Name Dose Route Start Last Admin Trade Name Freq PRN Reason Stop Dose Admin Heparin Sodium (Porcine) 5,000 units 03/15/17 10:00 03/15/17 10:44 Heparin SC 5,000 units Q12 MARC Administration Home Med 0 drop 03/15/17 21:15 03/16/17 17:44 Patient's Own Drops OU 1 drop BID MARC Administration Home Med 0 drop 03/15/17 22:00 03/16/17 22:55 Patient's Own Drops OU 1 drop HS MARC Administration Potassium Chloride/Dextrose 1,000 mls @ 125 mls/hr 03/15/17 06:45 03/17/17 06 :35 Potassium Chl 20 Meq In D5w IV Not Given .Q8H MARC Metronidazole 500 mg in 100 mls @ 100 mls/hr 03/15/17 14:00 03/17/17 05:04 Flagyl IVPB 100 mls/hr Q8 MARC Administration Cefepime HCl 2 gm in 100 mls @ 100 mls/hr 03/16/17 12:00 03/17/17 04:08 Maxipime Iv 2 Gm Premix IVPB 03/21/17 12:01 100 mls/hr Q8H MARC Administration Lorazepam 0.5 mg 03/16/17 18:00 03/16/17 17:50 Ativan IVP 0.5 mg BID MARC Administration Ondansetron HCl 4 mg 03/15/17 08:52 03/16/17 13:07 Zofran Inj IVP 4 mg Q4H PRN Administration Nausea/Vomiting Pantoprazole Sodium 40 mg 03/17/17 10:00 Protonix Inj IVP DAILY MARC - Patient Studies Lab Studies: Microbiology Studies 03/15/17 08:39 MRSA Culture (Admit) - Final Naris MRSA NOT DETECTED 03/15/17 09:44 Blood Culture - Preliminary Blood NO GROWTH AFTER 24 HOURS 03/15/17 09:44 Blood Culture - Preliminary Blood NO GROWTH AFTER 24 HOURS Lab Studies 03/17/17 03/17/17 03/17/17 Range/Units 06:36 06:36 06:36 WBC 19.6 H (4.8-10.8) K/uL RBC 4.85 (4.40-5.90) Mil/uL Hgb 11.8 L (12.0-18.0) g/dL Hct 36.6 (35.0-51.0) % MCV 75.5 L (80.0-94.0) fL MCH 24.3 L (27.0-31.0) pg MCHC 32.2 L (33.0-37.0) g/dL RDW 17.8 H (11.5-14.5) % Plt Count 284 (130-400) K/uL MPV 8.8 (7.2-11.7) fL Neut % (Auto) 80.2 H (50.0-75.0) % Lymph % (Auto) 7.4 L (20.0-40.0) % [place] % (Auto) 11.9 H (0.0-10.0) % Eos % (Auto) 0.2 (0.0-4.0) % Baso % (Auto) 0.3 (0.0-2.0) % Neut # 15.7 H (1.8-7.0) K/uL Lymph # 1.5 (1.0-4.3) K/uL [place] # 2.3 H (0.0-0.8) K/uL Eos # 0.0 (0.0-0.7) K/uL Baso # 0.1 (0.0-0.2) K/uL Neutrophils % (Manual) 70 (50-75) % Band Neutrophils % 13 H* (0-2) % Lymphocytes % (Manual) 9 L (20-40) % Reactive Lymphs % (0-0) % Monocytes % (Manual) 7 (0-10) % Eosinophils % (Manual) 1 (0-4) % Platelet Estimate Normal (NORMAL) Polychromasia Slight Hypochromasia (manual) Slight Anisocytosis (manual) Slight Target Cells Slight Sodium 125 L (132-148) mmol/L Potassium 4.0 (3.6-5.2) mmol/L Chloride 93 L (98-107) mmol/L Carbon Dioxide 26 (22-30) mmol/L Anion Gap 10 (10-20) BUN 14 (9-20) mg/dL Creatinine 0.8 (0.8-1.5) mg/dL Est GFR ( Amer) > 60 Est GFR (Non-Af Amer) > 60 Random Glucose 105 (75-110) mg/dL Calcium 8.5 L (8.6-10.4) mg/dl Phosphorus 2.6 (2.5-4.5) mg/dL Magnesium 1.9 (1.6-2.3) mg/dL Total Bilirubin 1.6 H (0.2-1.3) mg/dL AST 69 H D (17-59) U/L ALT 27 (21-72) U/L Alkaline Phosphatase 238 H (38-126) U/L Total Protein 7.4 (6.3-8.3) g/dL Albumin 3.4 L (3.5-5.0) g/dL Globulin 4.0 H (2.2-3.9) gm/dL Albumin/Globulin Ratio 0.9 L (1.0-2.1) Urine Color (YELLOW) Urine Clarity (Clear) Urine pH (5.0-8.0) Ur Specific [place] (1.003-1.030) Urine Protein (NEGATIVE) mg/dL Urine Glucose (UA) (Normal) mg/dL Urine Ketones (NEGATIVE) mg/dL Urine Blood (NEGATIVE) Urine Nitrate (NEGATIVE) Urine Bilirubin (NEGATIVE) Urine Urobilinogen (0.2-1.0) mg/dL Ur Leukocyte Esterase (Negative) [place]/uL Urine WBC (Auto) (0-5) /hpf Urine RBC (Auto) (0-3) /hpf Ur Squamous Epith Cells (0-5) /hpf Ur Transition Epith Cell (0-3) /hpf Urine Bacteria (<OCC) 03/16/17 03/16/17 Range/Units 18:15 06:27 WBC (4.8-10.8) K/uL RBC (4.40-5.90) Mil/uL Hgb (12.0-18.0) g/dL Hct (35.0-51.0) % MCV (80.0-94.0) fL MCH (27.0-31.0) pg MCHC (33.0-37.0) g/dL RDW (11.5-14.5) % Plt Count (130-400) K/uL MPV (7.2-11.7) fL Neut % (Auto) (50.0-75.0) % Lymph % (Auto) (20.0-40.0) % [place] % (Auto) (0.0-10.0) % Eos % (Auto) (0.0-4.0) % Baso % (Auto) (0.0-2.0) % Neut # (1.8-7.0) K/uL Lymph # (1.0-4.3) K/uL [place] # (0.0-0.8) K/uL Eos # (0.0-0.7) K/uL Baso # (0.0-0.2) K/uL Neutrophils % (Manual) 70 (50-75) % Band Neutrophils % 12 H* (0-2) % Lymphocytes % (Manual) 9 L (20-40) % Reactive Lymphs % 1 H (0-0) % Monocytes % (Manual) 8 (0-10) % Eosinophils % (Manual) (0-4) % Platelet Estimate Normal (NORMAL) Polychromasia Hypochromasia (manual) Anisocytosis (manual) Slight Target Cells Sodium (132-148) mmol/L Potassium (3.6-5.2) mmol/L Chloride (98-107) mmol/L Carbon Dioxide (22-30) mmol/L Anion Gap (10-20) BUN (9-20) mg/dL Creatinine (0.8-1.5) mg/dL Est GFR ( Amer) Est GFR (Non-Af Amer) Random Glucose (75-110) mg/dL Calcium (8.6-10.4) mg/dl Phosphorus (2.5-4.5) mg/dL Magnesium (1.6-2.3) mg/dL Total Bilirubin (0.2-1.3) mg/dL AST (17-59) U/L ALT (21-72) U/L Alkaline Phosphatase (38-126) U/L Total Protein (6.3-8.3) g/dL Albumin (3.5-5.0) g/dL Globulin (2.2-3.9) gm/dL Albumin/Globulin Ratio (1.0-2.1) Urine Color [place] (YELLOW) Urine Clarity Clear (Clear) Urine pH 5.0 (5.0-8.0) Ur Specific [place] 1.031 H (1.003-1.030) Urine Protein 1+ H (NEGATIVE) mg/dL Urine Glucose (UA) Normal (Normal) mg/dL Urine Ketones 1+ H (NEGATIVE) mg/dL Urine Blood Negative (NEGATIVE) Urine Nitrate Negative (NEGATIVE) Urine Bilirubin Negative (NEGATIVE) Urine Urobilinogen 4.0 (0.2-1.0) mg/dL Ur Leukocyte Esterase 2+ H (Negative) Linda/uL Urine WBC (Auto) 14 H (0-5) /hpf Urine RBC (Auto) 1 (0-3) /hpf Ur Squamous Epith Cells 1 (0-5) /hpf Ur Transition Epith Cell < 1 (0-3) /hpf Urine Bacteria Few H (<OCC) Laboratory Results - last 24 hr 03/16/17 03/16/17 03/17/17 06:27 18:15 06:36 WBC RBC Hgb Hct MCV MCH MCHC RDW Plt Count MPV Neut % (Auto) Lymph % (Auto) [place] % (Auto) Eos % (Auto) Baso % (Auto) Neut # Lymph # [place] # Eos # Baso # Neutrophils % (Manual) 70 Band Neutrophils % 12 H* Lymphocytes % (Manual) 9 L Reactive Lymphs % 1 H Monocytes % (Manual) 8 Eosinophils % (Manual) Platelet Estimate Normal Polychromasia Hypochromasia (manual) Anisocytosis (manual) Slight Target Cells Sodium Potassium Chloride Carbon Dioxide Anion Gap BUN Creatinine Est GFR ( Amer) Est GFR (Non-Af Amer) Random Glucose Calcium Phosphorus 2.6 Magnesium Total Bilirubin AST ALT Alkaline Phosphatase Total Protein Albumin Globulin Albumin/Globulin Ratio Urine Color [place] Urine Clarity Clear Urine pH 5.0 Ur Specific [place] 1.031 H Urine Protein 1+ H Urine Glucose (UA) Normal Urine Ketones 1+ H Urine Blood Negative Urine Nitrate Negative Urine Bilirubin Negative Urine Urobilinogen 4.0 Ur Leukocyte Esterase 2+ H Urine WBC (Auto) 14 H Urine RBC (Auto) 1 Ur Squamous Epith Cells 1 Ur Transition Epith Cell < 1 Urine Bacteria Few H 03/17/17 03/17/17 06:36 06:36 WBC 19.6 H RBC 4.85 Hgb 11.8 L Hct 36.6 MCV 75.5 L MCH 24.3 L MCHC 32.2 L RDW 17.8 H Plt Count 284 MPV 8.8 Neut % (Auto) 80.2 H Lymph % (Auto) 7.4 L [place] % (Auto) 11.9 H Eos % (Auto) 0.2 Baso % (Auto) 0.3 Neut # 15.7 H Lymph # 1.5 [place] # 2.3 H Eos # 0.0 Baso # 0.1 Neutrophils % (Manual) 70 Band Neutrophils % 13 H* Lymphocytes % (Manual) 9 L Reactive Lymphs % Monocytes % (Manual) 7 Eosinophils % (Manual) 1 Platelet Estimate Normal Polychromasia Slight Hypochromasia (manual) Slight Anisocytosis (manual) Slight Target Cells Slight Sodium 125 L Potassium 4.0 Chloride 93 L Carbon Dioxide 26 Anion Gap 10 BUN 14 Creatinine 0.8 Est GFR ( Amer) > 60 Est GFR (Non-Af Amer) > 60 Random Glucose 105 Calcium 8.5 L Phosphorus Magnesium 1.9 Total Bilirubin 1.6 H AST 69 H D ALT 27 Alkaline Phosphatase 238 H Total Protein 7.4 Albumin 3.4 L Globulin 4.0 H Albumin/Globulin Ratio 0.9 L Urine Color Urine Clarity Urine pH Ur Specific [place] Urine Protein Urine Glucose (UA) Urine Ketones Urine Blood Urine Nitrate Urine Bilirubin Urine Urobilinogen Ur Leukocyte Esterase Urine WBC (Auto) Urine RBC (Auto) Ur Squamous Epith Cells Ur Transition Epith Cell Urine Bacteria Critical Care Progress Note - Nutrition Nutrition: Nutrition Category Date Time Status NPO Diet [DIET] Diets 03/16/17 Breakfast Active Assessment/Plan - Assessment and Plan (Free Text) Assessment: 62M with Fungating sigmoid mass, liver/lungs mets Plan: Neuro: depression A&Ox3 Psych ([place]) Ativan 0.5 IV BID, Switch to PO when ready Electrolytes Hyponatremic - change fluids to D5NS Infectious disease: ID ([place]) band: 13 CXR: multiple pulmonary nodule 2-4 mm in diameter, bilateral patchy infiltrate. Procalcitonin: 0.41 Ceftriaxone 100mls/hr IV daily Flagyl 500 mg 100mls/hr IVPB Q8 Hematology: H&H: 12.0/36.8 Plt: 326 Heme ([place]) - Recommends liver biopsy, dedicated CT of chest with IV contrast CEA 2590.0 Further recommendation pending result of liver biopsy GI: colonic mass, small bowel obstruction, unintentional weight loss CEA: 2590.0 AST/ALT: 56/33 Al. phos.: 235 Tbili: 1.1 Guac + for occult blood GI (Isaias) Flex. Sigmoidoscopy today NGT NPO Surgery (Maryan) - OR today Prophylaxis GI: Pantoprazole Sodium 100mls @ 10 mls/hr IVP Q 10hr MARC DVT: SCDs <LatefGino - Last Filed: 03/17/17 18:49> CCU Objective - Vital Signs / Intake & Output Intake and Output (Last 8hrs): Intake & Output 03/17/17 03/17/17 03/17/17 06:59 14:59 22:59 Intake Total 1325 600 0 Output Total 450 625 Balance 875 -25 0 Weight 197 lb 14.4 oz Intake: Intake, IV Amount 1325 600 Left Hand 200 Right Hand 1125 600 Blood Product 0 Output: Urine 450 625 Urine, Voided 450 400 - Medications Active Medications: Active Medications Generic Name Dose Route Start Last Admin Trade Name Freq PRN Reason Stop Dose Admin Heparin Sodium (Porcine) 5,000 units 03/15/17 10:00 03/15/17 10:44 Heparin SC 5,000 units Q12 MARC Administration Home Med 0 drop 03/15/17 21:15 03/17/17 09:57 Patient's Own Drops OU 1 drop BID MARC Administration Home Med 0 drop 03/15/17 22:00 03/16/17 22:55 Patient's Own Drops OU 1 drop HS MARC Administration Metronidazole 500 mg in 100 mls @ 100 mls/hr 03/15/17 14:00 03/17/17 15:30 Flagyl IVPB 100 mls Q8 MARC Administration Cefepime HCl 2 gm in 100 mls @ 100 mls/hr 03/16/17 12:00 03/17/17 11:35 Maxipime Iv 2 Gm Premix IVPB 03/21/17 12:01 100 mls/hr Q8H MARC Administration Dextrose/Sodium Chloride 1,000 mls @ 125 mls/hr 03/17/17 09:45 03/17/17 09:56 Dextrose 5%/0.9% Ns 1000 Ml IV 125 mls/hr .Q8H MARC Administration Lorazepam 0.5 mg 03/16/17 18:00 03/17/17 09:57 Ativan IVP 0.5 mg BID MARC Administration Ondansetron HCl 4 mg 03/15/17 08:52 03/16/17 13:07 Zofran Inj IVP 4 mg Q4H PRN Administration Nausea/Vomiting Pantoprazole Sodium 40 mg 03/17/17 10:00 03/17/17 09:56 Protonix Inj IVP 40 mg DAILY MARC Administration - Patient Studies Lab Studies: Microbiology Studies 03/15/17 09:44 Blood Culture - Preliminary Blood NO GROWTH AFTER 48 HOURS 03/15/17 09:44 Blood Culture - Preliminary Blood NO GROWTH AFTER 48 HOURS Lab Studies 0103/17/17 03/17/17 Range/Units 15:50 14:29 14:29 WBC 18.2 H (4.8-10.8) K/uL RBC 4.54 (4.40-5.90) Mil/uL Hgb 10.9 L (12.0-18.0) g/dL Hct 33.9 L (35.0-51.0) % MCV 74.6 L (80.0-94.0) fL MCH 24.1 L (27.0-31.0) pg MCHC 32.3 L (33.0-37.0) g/dL RDW 17.4 H (11.5-14.5) % Plt Count 286 (130-400) K/uL MPV 7.7 (7.2-11.7) fL Neut % (Auto) (50.0-75.0) % Lymph % (Auto) (20.0-40.0) % [place] % (Auto) (0.0-10.0) % Eos % (Auto) (0.0-4.0) % Baso % (Auto) (0.0-2.0) % Neut # (1.8-7.0) K/uL Lymph # (1.0-4.3) K/uL [place] # (0.0-0.8) K/uL Eos # (0.0-0.7) K/uL Baso # (0.0-0.2) K/uL Neutrophils % (Manual) (50-75) % Band Neutrophils % (0-2) % Lymphocytes % (Manual) (20-40) % Monocytes % (Manual) (0-10) % Eosinophils % (Manual) (0-4) % Platelet Estimate (NORMAL) Polychromasia Hypochromasia (manual) Anisocytosis (manual) Target Cells Puncture Site Rra pCO2 35 (35-45) mm/Hg pO2 107 H (80-100) mm/Hg HCO3 22.5 (21-28) mmol/L ABG pH 7.39 (7.35-7.45) ABG Total CO2 22.3 (22-28) mmol/L ABG O2 Saturation 98.8 H (95-98) % ABG Base Excess -3.1 L (-2.0-3.0) mmol/L ABG Hemoglobin (11.7-17.4) g/dL ABG Carboxyhemoglobin (0.5-1.5) % POC ABG HHb (Measured) (0.0-5.0) % ABG Methemoglobin (0.0-3.0) % [place]der Test Na ABG Potassium 4.0 (3.6-5.2) mmol/L A-a O2 Difference mm/Hg Respiratory Index Hgb O2 Saturation (95.0-98.0) % Glucose 115 H (75-110) mg/dl Lactate 1.7 (0.7-2.1) mmol/L FiO2 % Crit Value Called To Crit Value Called By Crit Value Read Back Blood Gas Notified Time Sodium 128.0 L 127 L (132-148) mmol/L Potassium 4.1 (3.6-5.2) mmol/L Chloride 101.0 97 L (98-107) mmol/L Carbon Dioxide 25 (22-30) mmol/L Anion Gap 9 L (10-20) BUN 12 (9-20) mg/dL Creatinine 0.7 L (0.8-1.5) mg/dL Est GFR ( Amer) > 60 Est GFR (Non-Af Amer) > 60 Random Glucose 98 (75-110) mg/dL Calcium 8.0 L (8.6-10.4) mg/dl Phosphorus (2.5-4.5) mg/dL Magnesium (1.6-2.3) mg/dL Total Bilirubin (0.2-1.3) mg/dL AST (17-59) U/L ALT (21-72) U/L Alkaline Phosphatase (38-126) U/L Total Protein (6.3-8.3) g/dL Albumin (3.5-5.0) g/dL Globulin (2.2-3.9) gm/dL Albumin/Globulin Ratio (1.0-2.1) Arterial Blood Potassium 4.0 (3.6-5.2) mmol/L Blood Type Antibody Screen 03/17/17 03/17/17 03/17/17 Range/Units 14:25 14:00 12:04 WBC (4.8-10.8) K/uL RBC (4.40-5.90) Mil/uL Hgb (12.0-18.0) g/dL Hct (35.0-51.0) % MCV (80.0-94.0) fL MCH (27.0-31.0) pg MCHC (33.0-37.0) g/dL RDW (11.5-14.5) % Plt Count (130-400) K/uL MPV (7.2-11.7) fL Neut % (Auto) (50.0-75.0) % Lymph % (Auto) (20.0-40.0) % [place] % (Auto) (0.0-10.0) % Eos % (Auto) (0.0-4.0) % Baso % (Auto) (0.0-2.0) % Neut # (1.8-7.0) K/uL Lymph # (1.0-4.3) K/uL [place] # (0.0-0.8) K/uL Eos # (0.0-0.7) K/uL Baso # (0.0-0.2) K/uL Neutrophils % (Manual) (50-75) % Band Neutrophils % (0-2) % Lymphocytes % (Manual) (20-40) % Monocytes % (Manual) (0-10) % Eosinophils % (Manual) (0-4) % Platelet Estimate (NORMAL) Polychromasia Hypochromasia (manual) Anisocytosis (manual) Target Cells Puncture Site L/rad R/rad pCO2 41 42 (35-45) mm/Hg pO2 170 H 89 (80-100) mm/Hg HCO3 23.2 17.8 L (21-28) mmol/L ABG pH 7.36 7.24 L (7.35-7.45) ABG Total CO2 24.5 19.3 L (22-28) mmol/L ABG O2 Saturation 99.3 H 97.6 (95-98) % ABG Base Excess -2.2 L -9.0 L (-2.0-3.0) mmol/L ABG Hemoglobin 11.5 L (11.7-17.4) g/dL ABG Carboxyhemoglobin 1.6 H (0.5-1.5) % POC ABG HHb (Measured) 0.7 (0.0-5.0) % ABG Methemoglobin 1.1 (0.0-3.0) % [place] Test Pos Pos ABG Potassium 2.5 L* (3.6-5.2) mmol/L A-a O2 Difference 492.0 572.0 mm/Hg Respiratory Index 2.9 6.4 Hgb O2 Saturation 96.5 (95.0-98.0) % Glucose 78 (75-110) mg/dl Lactate 0.8 (0.7-2.1) mmol/L FiO2 100.0 100.0 % Crit Value Called To brazing furnace operatorraghavendra gallagher brazing furnace operatorraghavendra perdomo Crit Value Called By Agustín boggs geospatial developer Agustín boggs geospatial developer Crit Value Read Back Y Y Blood Gas Notified Time 1435 1409 Sodium 140.0 (132-148) mmol/L Potassium (3.6-5.2) mmol/L Chloride 113.0 H (98-107) mmol/L Carbon Dioxide (22-30) mmol/L Anion Gap (10-20) BUN (9-20) mg/dL Creatinine (0.8-1.5) mg/dL Est GFR ( Amer) Est GFR (Non-Af Amer) Random Glucose (75-110) mg/dL Calcium (8.6-10.4) mg/dl Phosphorus (2.5-4.5) mg/dL Magnesium (1.6-2.3) mg/dL Total Bilirubin (0.2-1.3) mg/dL AST (17-59) U/L ALT (21-72) U/L Alkaline Phosphatase (38-126) U/L Total Protein (6.3-8.3) g/dL Albumin (3.5-5.0) g/dL Globulin (2.2-3.9) gm/dL Albumin/Globulin Ratio (1.0-2.1) Arterial Blood Potassium 2.5 L* (3.6-5.2) mmol/L Blood Type O POSITIVE Antibody Screen Negative 03/17/17 03/17/17 03/17/17 Range/Units 06:36 06:36 06:36 WBC 19.6 H (4.8-10.8) K/uL RBC 4.85 (4.40-5.90) Mil/uL Hgb 11.8 L (12.0-18.0) g/dL Hct 36.6 (35.0-51.0) % MCV 75.5 L (80.0-94.0) fL MCH 24.3 L (27.0-31.0) pg MCHC 32.2 L (33.0-37.0) g/dL RDW 17.8 H (11.5-14.5) % Plt Count 284 (130-400) K/uL MPV 8.8 (7.2-11.7) fL Neut % (Auto) 80.2 H (50.0-75.0) % Lymph % (Auto) 7.4 L (20.0-40.0) % [place] % (Auto) 11.9 H (0.0-10.0) % Eos % (Auto) 0.2 (0.0-4.0) % Baso % (Auto) 0.3 (0.0-2.0) % Neut # 15.7 H (1.8-7.0) K/uL Lymph # 1.5 (1.0-4.3) K/uL [place] # 2.3 H (0.0-0.8) K/uL Eos # 0.0 (0.0-0.7) K/uL Baso # 0.1 (0.0-0.2) K/uL Neutrophils % (Manual) 70 (50-75) % Band Neutrophils % 13 H* (0-2) % Lymphocytes % (Manual) 9 L (20-40) % Monocytes % (Manual) 7 (0-10) % Eosinophils % (Manual) 1 (0-4) % Platelet Estimate Normal (NORMAL) Polychromasia Slight Hypochromasia (manual) Slight Anisocytosis (manual) Slight Target Cells Slight Puncture Site pCO2 (35-45) mm/Hg pO2 (80-100) mm/Hg HCO3 (21-28) mmol/L ABG pH (7.35-7.45) ABG Total CO2 (22-28) mmol/L ABG O2 Saturation (95-98) % ABG Base Excess (-2.0-3.0) mmol/L ABG Hemoglobin (11.7-17.4) g/dL ABG Carboxyhemoglobin (0.5-1.5) % POC ABG HHb (Measured) (0.0-5.0) % ABG Methemoglobin (0.0-3.0) % [place] Test ABG Potassium (3.6-5.2) mmol/L A-a O2 Difference mm/Hg Respiratory Index Hgb O2 Saturation (95.0-98.0) % Glucose (75-110) mg/dl Lactate (0.7-2.1) mmol/L FiO2 % Crit Value Called To Crit Value Called By Crit Value Read Back Blood Gas Notified Time Sodium 125 L (132-148) mmol/L Potassium 4.0 (3.6-5.2) mmol/L Chloride 93 L (98-107) mmol/L Carbon Dioxide 26 (22-30) mmol/L Anion Gap 10 (10-20) BUN 14 (9-20) mg/dL Creatinine 0.8 (0.8-1.5) mg/dL Est GFR ( Amer) > 60 Est GFR (Non-Af Amer) > 60 Random Glucose 105 (75-110) mg/dL Calcium 8.5 L (8.6-10.4) mg/dl Phosphorus 2.6 (2.5-4.5) mg/dL Magnesium 1.9 (1.6-2.3) mg/dL Total Bilirubin 1.6 H (0.2-1.3) mg/dL AST 69 H D (17-59) U/L ALT 27 (21-72) U/L Alkaline Phosphatase 238 H (38-126) U/L Total Protein 7.4 (6.3-8.3) g/dL Albumin 3.4 L (3.5-5.0) g/dL Globulin 4.0 H (2.2-3.9) gm/dL Albumin/Globulin Ratio 0.9 L (1.0-2.1) Arterial Blood Potassium (3.6-5.2) mmol/L Blood Type Antibody Screen Laboratory Results - last 24 hr 03/17/17 03/17/17 03/17/17 06:36 06:36 06:36 WBC 19.6 H RBC 4.85 Hgb 11.8 L Hct 36.6 MCV 75.5 L MCH 24.3 L MCHC 32.2 L RDW 17.8 H Plt Count 284 MPV 8.8 Neut % (Auto) 80.2 H Lymph % (Auto) 7.4 L [place] % (Auto) 11.9 H Eos % (Auto) 0.2 Baso % (Auto) 0.3 Neut # 15.7 H Lymph # 1.5 [place] # 2.3 H Eos # 0.0 Baso # 0.1 Neutrophils % (Manual) 70 Band Neutrophils % 13 H* Lymphocytes % (Manual) 9 L Monocytes % (Manual) 7 Eosinophils % (Manual) 1 Platelet Estimate Normal Polychromasia Slight Hypochromasia (manual) Slight Anisocytosis (manual) Slight Target Cells Slight Puncture Site pCO2 pO2 HCO3 ABG pH ABG Total CO2 ABG O2 Saturation ABG Base Excess ABG Hemoglobin ABG Carboxyhemoglobin POC ABG HHb (Measured) ABG Methemoglobin Satinder Test ABG Potassium A-a O2 Difference Respiratory Index Hgb O2 Saturation Glucose Lactate FiO2 Crit Value Called To Crit Value Called By Crit Value Read Back Blood Gas Notified Time Sodium 125 L Potassium 4.0 Chloride 93 L Carbon Dioxide 26 Anion Gap 10 BUN 14 Creatinine 0.8 Est GFR ( Amer) > 60 Est GFR (Non-Af Amer) > 60 Random Glucose 105 Calcium 8.5 L Phosphorus 2.6 Magnesium 1.9 Total Bilirubin 1.6 H AST 69 H D ALT 27 Alkaline Phosphatase 238 H Total Protein 7.4 Albumin 3.4 L Globulin 4.0 H Albumin/Globulin Ratio 0.9 L Arterial Blood Potassium Blood Type Antibody Screen 03/17/17 03/17/17 03/17/17 12:04 14:00 14:25 WBC RBC Hgb Hct MCV MCH MCHC RDW Plt Count MPV Neut % (Auto) Lymph % (Auto) [place] % (Auto) Eos % (Auto) Baso % (Auto) Neut # Lymph # [place] # Eos # Baso # Neutrophils % (Manual) Band Neutrophils % Lymphocytes % (Manual) Monocytes % (Manual) Eosinophils % (Manual) Platelet Estimate Polychromasia Hypochromasia (manual) Anisocytosis (manual) Target Cells Puncture Site R/rad L/rad pCO2 42 41 pO2 89 170 H HCO3 17.8 L 23.2 ABG pH 7.24 L 7.36 ABG Total CO2 19.3 L 24.5 ABG O2 Saturation 97.6 99.3 H ABG Base Excess -9.0 L -2.2 L ABG Hemoglobin 11.5 L ABG Carboxyhemoglobin 1.6 H POC ABG HHb (Measured) 0.7 ABG Methemoglobin 1.1 Satinder Test Pos Pos ABG Potassium 2.5 L* A-a O2 Difference 572.0 492.0 Respiratory Index 6.4 2.9 Hgb O2 Saturation 96.5 Glucose 78 Lactate 0.8 FiO2 100.0 100.0 Crit Value Called To brazing furnace operatorraghavendra perdomo brazing furnace operatorraghavendra gallagher Crit Value Called By Agustín boggs geospatial developer Agustín boggs geospatial developer Crit Value Read Back Y Y Blood Gas Notified Time 1409 1435 Sodium 140.0 Potassium Chloride 113.0 H Carbon Dioxide Anion Gap BUN Creatinine Est GFR ( Amer) Est GFR (Non-Af Amer) Random Glucose Calcium Phosphorus Magnesium Total Bilirubin AST ALT Alkaline Phosphatase Total Protein Albumin Globulin Albumin/Globulin Ratio Arterial Blood Potassium 2.5 L* Blood Type O POSITIVE Antibody Screen Negative 03/17/17 03/17/17 03/17/17 14:29 14:29 15:50 WBC 18.2 H RBC 4.54 Hgb 10.9 L Hct 33.9 L MCV 74.6 L MCH 24.1 L MCHC 32.3 L RDW 17.4 H Plt Count 286 MPV 7.7 Neut % (Auto) Lymph % (Auto) [place] % (Auto) Eos % (Auto) Baso % (Auto) Neut # Lymph # [place] # Eos # Baso # Neutrophils % (Manual) Band Neutrophils % Lymphocytes % (Manual) Monocytes % (Manual) Eosinophils % (Manual) Platelet Estimate Polychromasia Hypochromasia (manual) Anisocytosis (manual) Target Cells Puncture Site Rra pCO2 35 pO2 107 H HCO3 22.5 ABG pH 7.39 ABG Total CO2 22.3 ABG O2 Saturation 98.8 H ABG Base Excess -3.1 L ABG Hemoglobin ABG Carboxyhemoglobin POC ABG HHb (Measured) ABG Methemoglobin Satinder Test Na ABG Potassium 4.0 A-a O2 Difference Respiratory Index Hgb O2 Saturation Glucose 115 H Lactate 1.7 FiO2 Crit Value Called To Crit Value Called By Crit Value Read Back Blood Gas Notified Time Sodium 127 L 128.0 L Potassium 4.1 Chloride 97 L 101.0 Carbon Dioxide 25 Anion Gap 9 L BUN 12 Creatinine 0.7 L Est GFR ( Amer) > 60 Est GFR (Non-Af Amer) > 60 Random Glucose 98 Calcium 8.0 L Phosphorus Magnesium Total Bilirubin AST ALT Alkaline Phosphatase Total Protein Albumin Globulin Albumin/Globulin Ratio Arterial Blood Potassium 4.0 Blood Type Antibody Screen Critical Care Progress Note - Nutrition Nutrition: Nutrition Category Date Time Status NPO Diet [DIET] Diets 03/16/17 Breakfast Active Attending/Attestation - Attestation I have personally seen and examined this patient.: Yes I have fully participated in the care of the patient.: Yes I have reviewed all pertinent clinical information: Yes Notes (Text): 03/17/17 Today: , March 17, 2017 The Patient was seen and examined at the bedside, Medical records reviewed, and management issues were discussed and formulated with the house staff. I have reviewed all the relevant clinical, laboratory, hemodynamic, radiographic data and medications Events reviewed Pain issues, skin care, head of the bed elevation, glycemic control were addressed. Agree with above resident's assessment and treatment plans of care as transcribed in Dr. Kelly note.
[2017-03-17] MEDS: Dextrose 5%/0.9% NS 1,000 ML IV SCH ×2 (09:56→20:16)
[2017-03-17] MEDS: COMBIGAN OU SCH ×2 (09:57→22:28)
--- NOTE | 2017-03-17 12:20 | CARD ---
APPROVED REPORT EKG Measurement Heart [id number] <Conclusion> Sinus tachycardia Low voltage QRS Nonspecific T wave abnormality Abnormal ECG
[2017-03-17] MEDS ORDERED: Propofol 10 mg/ml Inj (20 ML) ONE (12:50)
[2017-03-17] MEDS ORDERED: Midazolam 2 MG/2 ML VIAL ONE ×2 (12:53→15:03)
[2017-03-17] MEDS ORDERED: Etomidate 20 mg/10ml Inj IV ONE (12:54)
[2017-03-17] MEDS ORDERED: Sodium Chloride 0.9% 1,000 ML IV ONE ×2 (13:25→21:38)
[2017-03-17] MEDS ORDERED: Lactated Ringer's 1,000 ML IV ONE ×3 (13:25→15:30)
[2017-03-17] MEDS ORDERED: Bupivacaine HCl 0.5% PF (10 ml) Inj ONE (13:52)
[2017-03-17 14:07] LABS: ABG ALLEN TEST POS; ARTERIAL BLOOD GAS HCO3 17.8 mmol/L (21-28); ARTERIAL BLOOD GAS O2 SAT 97.6 % (95-98); ARTERIAL BLOOD GAS PCO2 42 mm/Hg (35-45); ARTERIAL BLOOD GAS PH 7.24 (7.35-7.45); ARTERIAL BLOOD GAS PO2 89 mm/Hg (80-100); ARTERIAL BLOOD GAS TCO2 19.3 mmol/L (22-28)
[2017-03-17 14:33] LABS: HEMOGLOBIN 10.9 g/dL (12.0-18.0); MEAN CELL VOLUME 74.6 fL (80.0-94.0); MEAN CORPUSCULAR HEMOGLOBIN 24.1 pg (27.0-31.0); MEAN CORPUSCULAR HGB CONC 32.3 g/dL (33.0-37.0); MEAN PLATELET VOLUME 7.7 fL (7.2-11.7); RBC 4.54 Mil/uL (4.40-5.90); RED CELL DISTRIBUTION WIDTH 17.4 % (11.5-14.5); WHITE BLOOD COUNT 18.2 K/uL (4.8-10.8)
[2017-03-17 14:35] LABS: ABG ALLEN TEST POS; ARTERIAL BLOOD GAS HCO3 23.2 mmol/L (21-28); ARTERIAL BLOOD GAS HEMOGLOBIN 11.5 g/dL (11.7-17.4); ARTERIAL BLOOD GAS O2 SAT 99.3 % (95-98); ARTERIAL BLOOD GAS PCO2 41 mm/Hg (35-45); ARTERIAL BLOOD GAS PH 7.36 (7.35-7.45); ARTERIAL BLOOD GAS PO2 170 mm/Hg (80-100); ARTERIAL BLOOD GAS TCO2 24.5 mmol/L (22-28)
[2017-03-17] MEDS ORDERED: metroNIDAZOLE IV 500 mg/100 ml 500 MG/100 ML BAG ONE (14:45)
[2017-03-17 14:46] LABS: BLOOD UREA NITROGEN 12 mg/dL (9-20); GFR AFRICAN-AMERICAN > 60; GFR NON-AFRICAN AMERICAN > 60
[2017-03-17 15:57] LABS: ARTERIAL BLOOD GAS HCO3 22.5 mmol/L (21-28); ARTERIAL BLOOD GAS O2 SAT 98.8 % (95-98); ARTERIAL BLOOD GAS PCO2 35 mm/Hg (35-45); ARTERIAL BLOOD GAS PH 7.39 (7.35-7.45); ARTERIAL BLOOD GAS PO2 107 mm/Hg (80-100); ARTERIAL BLOOD GAS TCO2 22.3 mmol/L (22-28)
--- NOTE | 2017-03-17 18:58 | CP.PCM.PN ---
Subjective - Date & Time of Evaluation Date of Evaluation: 03/17/17 Time of Evaluation: 18:58 - Subjective Subjective: patient was seen and examined He is back from surgery sedated,off pressors doing good d/w at bedside Objective - Vital Signs/Intake and Output Vital Signs (last 24 hours): Temp Pulse Resp BP Pulse Ox 98.5 F 109 H 25 H 140/94 H 97 03/17/17 12:00 03/17/17 12:00 03/17/17 12:00 03/17/17 12:00 03/17/17 12:00 Intake and Output: 03/17/17 03/17/17 06:59 18:59 Intake Total 1800 600 Output Total 500 625 Balance 1300 -25 - Medications Medications: Current Medications Heparin Sodium (Porcine) (Heparin) 5,000 units SC Q12 [facility] Last Admin: 03/15/17 10:44 Dose: 5,000 units Home Med (Patient's Own Drops) 0 drop OU BID [facility] Last Admin: 03/17/17 09:57 Dose: 1 drop Home Med (Patient's Own Drops) 0 drop OU HS [facility] Last Admin: 03/16/17 22:55 Dose: 1 drop Metronidazole (Flagyl) 500 mg in 100 mls @ 100 mls/hr IVPB Q8 [facility] Last Admin: 03/17/17 15:30 Dose: 100 mls Cefepime HCl (Maxipime Iv 2 Gm Premix) 2 gm in 100 mls @ 100 mls/hr IVPB Q8H [facility] Stop: 03/21/17 12:01 Last Admin: 03/17/17 11:35 Dose: 100 mls/hr Dextrose/Sodium Chloride (Dextrose 5%/0.9% Ns 1000 Ml) 1,000 mls @ 125 mls/hr IV .Q8H [facility] Last Admin: 03/17/17 09:56 Dose: 125 mls/hr Lorazepam (Ativan) 0.5 mg IVP BID [facility] Last Admin: 03/17/17 09:57 Dose: 0.5 mg Ondansetron HCl (Zofran Inj) 4 mg IVP Q4H PRN PRN Reason: Nausea/Vomiting Last Admin: 03/16/17 13:07 Dose: 4 mg Pantoprazole Sodium (Protonix Inj) 40 mg IVP DAILY [facility] Last Admin: 03/17/17 09:56 Dose: 40 mg - Labs Labs: 03/17/17 14:29 03/17/17 14:29 PT 13.9 SECONDS (9.7-12.2) H 03/15/17 04:47 INR 1.2 03/15/17 04:47 APTT 29 SECONDS (21-34) D 03/15/17 10:06 - Constitutional Appears: Chronically Ill - Head Exam Head Exam: ATRAUMATIC - Eye Exam Eye Exam: Normal appearance - ENT Exam ENT Exam: Mucous Membranes Moist - Neck Exam Neck Exam: Full ROM - Respiratory Exam Respiratory Exam: Clear to Ausculation Bilateral - Cardiovascular Exam Cardiovascular Exam: REGULAR RHYTHM - GI/Abdominal Exam GI & Abdominal Exam: Distended, Diminished Bowel Sounds. absent: Tenderness ( sedated,s/p colostomy and surgery) - Extremities Exam Extremities Exam: Normal Inspection - Back Exam Back Exam: NORMAL INSPECTION - Neurological Exam Neurological Exam: absent: Awake (sedated) - Psychiatric Exam Psychiatric exam: Normal Mood - Skin Skin Exam: Dry Assessment and Plan - Assessment and Plan (Free Text) Assessment: This is a 62 years old male came for coffee ground vomiting and constipation. CT abdomen showed Obstructing colon mass. Has liver and lung mass suspicious for malignancy.s/p sigmoidoscopy and biopsy 03/16/17.had surgery colectomy and colostomy this afternoon. had leukocytosis with bands Plan: 1.Colon mass with obstruction/Likely metastatic colon cancer Surgery consult Dr Steinberg s/p surgery d/w Dr Steinberg Ex lap with L hemicolectomy and colostomy. Takedown of splenic flexure. Lysis of adhesions. Omentectomy. Scar revision. Liver biopsy. GI consult DR Esparza s/p sigmoidoscopy and bipys d/w [employer] 2. Coffee ground emesis NPO,protonix drip,type and screen done Monitor H/H,continue fluids 3.Leukocytosis with bands,r/o sepsis d/w Dr Hutchins and started on Cefepime continue flagyl and cefepime blood culture is negative for 48hours 4.DVT prophylaxis-SCDs GI prophylaxis-Protonix 5.Liver and lung mass likely metastatic ca Dr dumont/oncology consult 6.Anxiety-seen by psychiatrist
[2017-03-17] MEDS ORDERED: BUPIVACAINE 0.125%/0.9% NACL 600 ML IJ ONE (19:31)
--- NOTE | 2017-03-17 19:37 | PCM.SURG1 ---
Surgeon's Initial Post Op Note - Surgeon's Notes Surgeon: Maryan Malt Loader: PGY4, Andrea Mosqueda MS3 Type of Anesthesia: General Endo Pre-Operative Diagnosis: Colon Mass Operative Findings: see op note Post-Operative Diagnosis: Colon Mass Operation Performed: Ex lap with L hemicolectomy and colostomy. Takedown of splenic flexure. Lysis of adhesions. Omentectomy. Scar revision. Liver biopsy. Placement of On-Q pain control system Specimen/Specimens Removed: Descending and sigmoid colon. Liver biopsy. Omentum. Abdominal Scar Estimated Blood Loss: EBL {In ML}: 200 Blood Products Given: PRBC (1) Drains Used: Vin (RLQ) Post-Op Condition: Fair Date of Surgery/Procedure: 03/17/17 Time of Surgery/Procedure: 13:30
[2017-03-17] MEDS: DEXTROSE 5% IV PRN (19:40)
[2017-03-17] MEDS: WATER IV PRN (19:40)
[2017-03-17] MEDS: FENTANYL CITRATE IV PRN (19:40)
[2017-03-17] MEDS ORDERED: Propofol 10 mg/ml 1,000 MG/100 ML VIAL IV PRN (19:54)
[2017-03-17 20:11] LABS: ARTERIAL BLOOD GAS HEMOGLOBIN 12.1 g/dL (11.7-17.4); ARTERIAL BLOOD GAS O2 SAT 99.5 % (95-98); ARTERIAL BLOOD GAS PCO2 30 mm/Hg (35-45); ARTERIAL BLOOD GAS PH 7.38 (7.35-7.45); ARTERIAL BLOOD GAS PO2 331 mm/Hg (80-100); ARTERIAL BLOOD GAS TCO2 18.6 mmol/L (22-28)
[2017-03-17 20:18] LABS: BASO # 0.1 K/uL (0.0-0.2); BASO % 0.6 % (0.0-2.0); EOS % 0.2 % (0.0-4.0); HEMOGLOBIN 12.8 g/dL (12.0-18.0); LYMPH # 1.2 K/uL (1.0-4.3); LYMPH % 9.4 % (20.0-40.0); MEAN CELL VOLUME 76.3 fL (80.0-94.0); MEAN CORPUSCULAR HEMOGLOBIN 24.4 pg (27.0-31.0); MEAN PLATELET VOLUME 7.8 fL (7.2-11.7); MONO # 1.2 K/uL (0.0-0.8); MONO % 9.8 % (0.0-10.0); NEUT # 10.1 K/uL (1.8-7.0); NRBC % 0.1 % (0.0-2.0); PLATELET COUNT 313 K/uL (130-400); RBC 5.22 Mil/uL (4.40-5.90); WHITE BLOOD COUNT 12.7 K/uL (4.8-10.8)
[2017-03-17 20:26] LABS: INR 1.7
[2017-03-17 20:28] LABS: PROTHROMBIN TIME 19.4 SECONDS (9.7-12.2)
[2017-03-17 20:37] LABS: ALB/GLOB RATIO 0.8 (1.0-2.1); ALBUMIN 2.7 g/dL (3.5-5.0); ALT/SGPT 55 U/L (21-72); AST/SGOT 102 U/L (17-59); BLOOD UREA NITROGEN 16 mg/dL (9-20); CALCIUM 7.6 mg/dl (8.6-10.4); GFR AFRICAN-AMERICAN > 60; GFR NON-AFRICAN AMERICAN > 60; MAGNESIUM 1.7 mg/dL (1.6-2.3)
[2017-03-17 21:25] LABS: BANDS 19 % (0-2); LYMPHOCYTE 19 % (20-40); MONOCYTE 9 % (0-10); NEUTROPHIL 53 % (50-75); TOTAL CELLS COUNTED 100
[2017-03-17 21:26] LABS: ANISOCYTOSIS SLIGHT; HYPOCHROMIC SLIGHT; MICROCYTOSIS SLIGHT; PLATELET ESTIMATE NORMAL (NORMAL); POLYCHROMIC SLIGHT
[2017-03-17] MEDS: TRAVATAN OU SCH (22:28)
[2017-03-18] MEDS ORDERED: Sodium Chloride 0.9% 1,000 ML IV ONE (01:12)
[2017-03-18] MEDS: Dextrose 5%/0.9% NS 1,000 ML IV SCH (01:45)
[2017-03-18] MEDS ORDERED: Sodium Chloride 0.9% 500 ML IV ONE ×3 (03:23→08:02)
[2017-03-18] MEDS: Cefepime IV 2 gm in Dextrose 2 GM/100 ML BAG IVPB SCH ×3 (03:27→19:52)
[2017-03-18] MEDS ORDERED: Lactated Ringer's 1,000 ML IV SCH (03:30)
[2017-03-18 03:44] LABS: BASO # 0.2 K/uL (0.0-0.2); BASO % 1.6 % (0.0-2.0); EOS % 0.1 % (0.0-4.0); HEMOGLOBIN 11.8 g/dL (12.0-18.0); LYMPH # 0.8 K/uL (1.0-4.3); LYMPH % 5.7 % (20.0-40.0); MEAN CELL VOLUME 76.4 fL (80.0-94.0); MEAN CORPUSCULAR HEMOGLOBIN 24.6 pg (27.0-31.0); MEAN CORPUSCULAR HGB CONC 32.2 g/dL (33.0-37.0); MEAN PLATELET VOLUME 8.4 fL (7.2-11.7); MONO # 1.1 K/uL (0.0-0.8); MONO % 7.6 % (0.0-10.0); NEUT # 12.5 K/uL (1.8-7.0); NRBC % 0.1 % (0.0-2.0); PLATELET COUNT 295 K/uL (130-400); RBC 4.81 Mil/uL (4.40-5.90); RED CELL DISTRIBUTION WIDTH 17.7 % (11.5-14.5); WHITE BLOOD COUNT 14.7 K/uL (4.8-10.8)
[2017-03-18] MEDS: metroNIDAZOLE IV 500 mg/100 ml 500 MG/100 ML BAG IVPB SCH ×3 (05:19→23:52)
[2017-03-18 05:33] LABS: ALBUMIN 2.3 g/dL (3.5-5.0); ALT/SGPT 55 U/L (21-72); AST/SGOT 114 U/L (17-59); BLOOD UREA NITROGEN 17 mg/dL (9-20); CALCIUM 7.1 mg/dl (8.6-10.4); GFR AFRICAN-AMERICAN > 60; GFR NON-AFRICAN AMERICAN > 60
[2017-03-18 05:36] LABS: ALB/GLOB RATIO 0.8 (1.0-2.1)
[2017-03-18 05:42] LABS: ARTERIAL BLOOD GAS HCO3 19.2 mmol/L (21-28); ARTERIAL BLOOD GAS HEMOGLOBIN 12.8 g/dL (11.7-17.4); ARTERIAL BLOOD GAS O2 SAT 99.1 % (95-98); ARTERIAL BLOOD GAS PCO2 39 mm/Hg (35-45); ARTERIAL BLOOD GAS PH 7.29 (7.35-7.45); ARTERIAL BLOOD GAS PO2 124 mm/Hg (80-100)
[2017-03-18 06:26] LABS: ANISOCYTOSIS SLIGHT; BANDS 12 % (0-2); LYMPHOCYTE 10 % (20-40); MONOCYTE 8 % (0-10); NEUTROPHIL 70 % (50-75); PLATELET ESTIMATE NORMAL (NORMAL); TOTAL CELLS COUNTED 100; TOXIC GRANULATION PRESENT
[2017-03-18 06:27] LABS: POLYCHROMIC SLIGHT
[2017-03-18] MEDS: DEXTROSE 5% IV PRN (07:31)
[2017-03-18] MEDS: WATER IV PRN (07:31)
[2017-03-18] MEDS: FENTANYL CITRATE IV PRN (07:31)
[2017-03-18] MEDS ORDERED: Ketamine 50 mg/ml Inj (10 ml) ONE (07:37)
--- NOTE | 2017-03-18 08:07 | RAD ---
HISTORY: intubation COMPARISON: Portable chest 03/15/2017. FINDINGS: An endotracheal tube is in placed in the plane of the trachea with tip terminating approximately 7 cm above the jhoan. Nasogastric tube not significantly changed in position. LUNGS: Image captured with the low pulmonary volume. Reticular nodular pulmonary pattern persists diffusely but, bilaterally. Right hemidiaphragm is silhouetted indicating atelectasis or infiltrate at the right base. No left-sided infiltrate appreciable grossly. PLEURA: No significant pleural effusion identified, no pneumothorax apparent. CARDIOVASCULAR: Normal. OSSEOUS STRUCTURES: No significant abnormalities. VISUALIZED UPPER ABDOMEN: Normal. OTHER FINDINGS: None. IMPRESSION: Persistent reticulonodular pulmonary pattern bilaterally with interval atelectasis or infiltrate developing at the right base mildly.
--- NOTE | 2017-03-18 09:12 | CP.PCM.PN ---
<AceEnid - Last Filed: 03/18/17 09:13> Subjective - Date & Time of Evaluation Date of Evaluation: 03/18/17 Time of Evaluation: 09:09 - Subjective Subjective: Surgery Pt s&e. Pt underwent surgery yesterday. Intubated and sedated. Intra abd pressure measured: 9. Objective - Vital Signs/Intake and Output Vital Signs (last 24 hours): Temp Pulse Resp BP Pulse Ox 98.6 F 124 H 20 126/70 96 03/18/17 00:00 03/18/17 07:03 03/18/17 07:03 03/18/17 07:03 03/18/17 07:00 Intake and Output: 03/18/17 03/18/17 06:59 18:59 Intake Total 4361.5 776.9 Output Total 1075 Balance 3286.5 776.9 - Medications Medications: Current Medications Enoxaparin Sodium (Lovenox) 30 mg SC DAILY [facility] Heparin Sodium (Porcine) (Heparin) 5,000 units SC Q12 [facility] Last Admin: 03/15/17 10:44 Dose: 5,000 units Home Med (Patient's Own Drops) 0 drop OU BID [facility] Last Admin: 03/17/17 22:28 Dose: 1 drop Home Med (Patient's Own Drops) 0 drop OU HS [facility] Last Admin: 03/17/17 22:28 Dose: Not Given Metronidazole (Flagyl) 500 mg in 100 mls @ 100 mls/hr IVPB Q8 [facility] Last Admin: 03/18/17 05:19 Dose: 100 mls/hr Cefepime HCl (Maxipime Iv 2 Gm Premix) 2 gm in 100 mls @ 100 mls/hr IVPB Q8H [facility] Stop: 03/21/17 12:01 Last Admin: 03/18/17 03:27 Dose: 100 mls/hr Fentanyl Citrate 2,500 mcg/ (Dextrose) 300 mls @ 21.54 mls/hr IV .[id number] PRN; 2 MCG/KG/HR PRN Reason: Protocol Last Admin: 03/18/17 07:31 Dose: 2.49 mcg/kg/hr, 26.9 mls/hr BUPIVACAINE 0.125%/0.9% NACL (Bupivacaine-Ns 0.125% On-Q Satin Finisher) 600 mls @ 4 mls/ hr IJ ONCE ONE Stop: 03/24/17 01:30 Last Admin: 03/17/17 20:32 Dose: 4 mls/hr Propofol (Diprivan) 1,000 mg in 100 mls @ 2.693 mls/hr IV .Q24H PRN; Protocol; 5 MCG/KG/MIN PRN Reason: TITRATE PER MD ORDER Lactated Ringer's (Lactated Ringer's) 1,000 mls @ 150 mls/hr IV .[id number] [facility] Last Admin: 03/18/17 03:33 Dose: 150 mls/hr Lorazepam (Ativan) 0.5 mg IVP BID [facility] Last Admin: 03/17/17 19:39 Dose: 0.5 mg Ondansetron HCl (Zofran Inj) 4 mg IVP Q4H PRN PRN Reason: Nausea/Vomiting Last Admin: 03/16/17 13:07 Dose: 4 mg Pantoprazole Sodium (Protonix Inj) 40 mg IVP DAILY [facility] Last Admin: 03/17/17 09:56 Dose: 40 mg - Labs Labs: 03/18/17 03:36 03/18/17 03:36 PT 19.4 SECONDS (9.7-12.2) H D 03/17/17 20:14 INR 1.7 D 03/17/17 20:14 APTT 35 SECONDS (21-34) H D 03/17/17 20:14 - Constitutional Appears: In Acute Distress - Head Exam Head Exam: ATRAUMATIC, NORMAL INSPECTION, NORMOCEPHALIC - Eye Exam Eye Exam: EOMI, Normal appearance, PERRL Pupil Exam: NORMAL ACCOMODATION, PERRL - ENT Exam ENT Exam: Mucous Membranes Moist, Normal Exam - Neck Exam Neck Exam: Full ROM, Normal Inspection. absent: Lymphadenopathy - Respiratory Exam Respiratory Exam: Respiratory Distress Additional comments: Intubated. 50% FiO2. PRVC - Cardiovascular Exam Cardiovascular Exam: Tachycardia - GI/Abdominal Exam GI & Abdominal Exam: Distended, Soft, Tenderness, Normal Bowel Sounds. absent: Firm, Guarding, Rigid, Mass, Pulsatile Mass, Rebound Additional comments: Incision C/D/I. - Exam Additional comments: Fox in place: clear urine. 300cc/12hrs - Extremities Exam Extremities Exam: Normal Inspection - Back Exam Back Exam: NORMAL INSPECTION - Neurological Exam Neurological Exam: absent: Alert, Awake, Normal Gait, Oriented x3 - Skin Skin Exam: Dry, Intact, Normal Color, Warm Assessment and Plan - Assessment and Plan (Free Text) Assessment: POD 1 s/p L hemicolectomy w colostomy Colostomy fecal output -ICU management -Monitor VS/I&O -medical management Will DW Dr. Steinberg <Trace Steinberg - Last Filed: 03/19/17 21:50> Objective - Vital Signs/Intake and Output Vital Signs (last 24 hours): Temp Pulse Resp BP Pulse Ox 100.2 F H 97 H 13 111/64 96 03/19/17 20:00 03/19/17 21:00 03/19/17 21:00 03/19/17 21:03 03/19/17 21:00 Intake and Output: 03/19/17 03/20/17 18:59 06:59 Intake Total 2090.6 589 Output Total 620 320 Balance 1470.6 269 - Medications Medications: Current Medications Albuterol/Ipratropium (Duoneb 3 Mg/0.5 Mg (3 Ml) Ud) 3 ml INH RQ6 [facility] Last Admin: 03/19/17 20:36 Dose: 3 ml Enoxaparin Sodium (Lovenox) 30 mg SC DAILY [facility] Last Admin: 03/19/17 10:05 Dose: 30 mg Home Med (Patient's Own Drops) 0 drop OU BID [facility] Last Admin: 03/19/17 18:12 Dose: 1 drop Home Med (Patient's Own Drops) 0 drop OU HS [facility] Last Admin: 03/18/17 23:48 Dose: 1 drop Metronidazole (Flagyl) 500 mg in 100 mls @ 100 mls/hr IVPB Q8 [facility] Last Admin: 03/19/17 14:29 Dose: 100 mls/hr Cefepime HCl (Maxipime Iv 2 Gm Premix) 2 gm in 100 mls @ 100 mls/hr IVPB Q8H [facility] Stop: 03/21/17 12:01 Last Admin: 03/19/17 20:31 Dose: 100 mls/hr BUPIVACAINE 0.125%/0.9% NACL (Bupivacaine-Ns 0.125% On-Q Satin Finisher) 600 mls @ 4 mls/ hr IJ ONCE ONE Stop: 03/24/17 01:30 Last Admin: 03/17/17 20:32 Dose: 4 mls/hr Propofol (Diprivan) 1,000 mg in 100 mls @ 2.693 mls/hr IV .Q24H PRN; Protocol; 5 MCG/KG/MIN PRN Reason: TITRATE PER MD ORDER Fentanyl Citrate 2,500 mcg/ (Dextrose) 250 mls @ 17.95 mls/hr IV .[id number] PRN; 2 MCG/KG/HR PRN Reason: Protocol Last Admin: 03/19/17 20:30 Dose: 1 mcg/kg/hr, 8.97 mls/hr Lactated Ringer's (Lactated Ringer's) 1,000 mls @ 100 mls/hr IV .Q10H [facility] Last Admin: 03/19/17 20:22 Dose: Not Given Vancomycin/Sodium Chloride (Vancomycin 1 Gm/Ns 200 Ml) 1 gm in 200 mls @ 166.7 mls/hr IVPB Q12H [facility] Stop: 03/24/17 12:01 Last Admin: 03/19/17 12:37 Dose: 166.7 mls/hr Lorazepam (Ativan) 0.5 mg IVP BID [facility] Last Admin: 03/19/17 17:59 Dose: Not Given Metoprolol Tartrate (Lopressor) 5 mg IVP Q6 [facility] Last Admin: 03/19/17 18:12 Dose: 5 mg Ondansetron HCl (Zofran Inj) 4 mg IVP Q4H PRN PRN Reason: Nausea/Vomiting Last Admin: 03/16/17 13:07 Dose: 4 mg Pantoprazole Sodium (Protonix Inj) 40 mg IVP DAILY [facility] Last Admin: 03/19/17 10:05 Dose: 40 mg - Labs Labs: 03/19/17 06:39 03/19/17 06:39 PT 19.4 SECONDS (9.7-12.2) H D 03/17/17 20:14 INR 1.7 D 03/17/17 20:14 APTT 35 SECONDS (21-34) H D 03/17/17 20:14 Attending/Attestation - Attestation I have personally seen and examined this patient.: Yes I have fully participated in the care of the patient.: Yes I have reviewed all pertinent clinical information, including history, physical exam and plan: Yes Notes (Text): Pt was seen and examined at bedside Agree with above note and assessment Pt is intubated and sedated c/w ICU mx Plan d.w primary team in detail
--- NOTE | 2017-03-18 09:41 | RAD ---
HISTORY: vent COMPARISON: Portable chest 03/17/2017. FINDINGS: Endotracheal and nasogastric tubes remain unchanged in position. LUNGS: Reticulonodular changes are again seen bilaterally with increasing airspace disease developing at the bilateral bases potentially from atelectasis though alveolitis is not excluded. PLEURA: No significant pleural effusion identified, no pneumothorax apparent. CARDIOVASCULAR: Stable cardiomediastinal silhouette. OSSEOUS STRUCTURES: No significant abnormalities. VISUALIZED UPPER ABDOMEN: Normal. OTHER FINDINGS: None. IMPRESSION: Increasing airspace disease developing at the right greater than left lung bases overlying diffuse reticulonodular pulmonary pathology.
[2017-03-18] MEDS: Albumin Human 25% (12.5 gm/50 ml) IV SCH ×8 (10:00→17:07)
[2017-03-18] MEDS: Lactated Ringer's 1,000 ML IV SCH ×3 (10:08→20:24)
[2017-03-18] MEDS: Enoxaparin 30 mg Syringe SC SCH (11:14)
[2017-03-18] MEDS: COMBIGAN OU SCH ×2 (11:20→18:09)
--- NOTE | 2017-03-18 12:14 | CP.CCUPN ---
<Luis Kelly - Last Filed: 03/18/17 13:33> CCU Subjective - Physician Review Subjective (Free Text): 03/18/17 12:12 patient seen and examined at bedside intubated fentanyl drip s/p L. hemicolectomy Poor U/O Bladder pressure normal fluid bolus increase fluid rate monitor I/O CCU Objective - Vital Signs / Intake & Output Vital Signs (Last 4 hours): Vital Signs Pulse Resp BP Pulse Ox 03/18/17 09:03 120 H 17 112/75 95 03/18/17 09:00 119 H 20 97 Intake and Output (Last 8hrs): Intake & Output 03/17/17 03/18/17 03/18/17 22:59 06:59 14:59 Intake Total 1886.3 2800.2 1630.7 Output Total 830 245 20 Balance 1056.3 2555.2 1610.7 Weight 197 lb 8.547 oz Intake: IV 45 155 100 Intake, IV Amount 1516.3 2645.2 1530.7 Left Hand 445 975 450 left EJ 1000 1500 1000 left hand #2 71.3 170.2 80.7 Blood Product 325 Output: Drainage 140 70 Right Lower Abdomen 140 70 Urine 690 175 20 Urethral (Fox) 690 175 20 - Physical Exam Head: Positive for: Atraumatic, Normocephalic Pupils: Positive for: PERRL Extroacular Muscles: Positive for: EOMI Conjunctiva: Positive for: Normal Mouth: Positive for: Moist Mucous Membranes Neck: Positive for: Normal Range of Motion Respiratory/Chest: Positive for: Clear to Auscultation, Accessory Muscle Use Cardiovascular: Positive for: Regular Rate and Rhythm Abdomen: Positive for: Normal Bowel Sounds. Negative for: Tenderness, Distention, Peritoneal Signs Lower Extremity: Positive for: Other (tvp) Psychiatric: Positive for: Alert, Oriented x 3 - Medications Active Medications: Active Medications Generic Name Dose Route Start Last Admin Trade Name Freq PRN Reason Stop Dose Admin Albumin Human 12.5 gm 03/18/17 10:04 03/18/17 11:13 Albumin Human 25% (12.5 Gm/50 Ml) IV 03/18/17 17:01 12.5 gm Q1 MARC Administration Albuterol/Ipratropium 3 ml 03/18/17 14:00 Duoneb 3 Mg/0.5 Mg (3 Ml) Ud INH RQ6 MARC Enoxaparin Sodium 30 mg 03/18/17 10:00 03/18/17 11:14 Lovenox SC 30 mg DAILY MARC Administration Home Med 0 drop 03/15/17 21:15 03/18/17 11:20 Patient's Own Drops OU 1 drop BID MARC Administration Home Med 0 drop 03/15/17 22:00 03/17/17 22:28 Patient's Own Drops OU Not Given HS MARC Metronidazole 500 mg in 100 mls @ 100 mls/hr 03/15/17 14:00 03/18/17 05:19 Flagyl IVPB 100 mls/hr Q8 MARC Administration Cefepime HCl 2 gm in 100 mls @ 100 mls/hr 03/16/17 12:00 03/18/17 11:14 Maxipime Iv 2 Gm Premix IVPB 03/21/17 12:01 100 mls/hr Q8H MARC Administration Fentanyl Citrate 2,500 mcg/ 300 mls @ 21.54 mls/hr 03/17/17 19:15 03/18/17 07 :31 Dextrose IV 2.49 mcg/kg/hr .[id number] PRN 26.9 mls/hr Protocol Administration 2 MCG/KG/HR BUPIVACAINE 0.125%/0.9% NACL 600 mls @ 4 mls/hr 03/17/17 19:31 03/17/17 20:32 Bupivacaine-Ns 0.125% On-Q Segmental Wall Installer IJ 03/24/17 01:30 4 mls/hr ONCE ONE Administration Propofol 1,000 mg in 100 mls @ 2.693 mls/hr 03/17/17 19:54 Diprivan IV .Q24H PRN TITRATE PER MD ORDER Protocol 5 MCG/KG/MIN Lactated Ringer's 1,000 mls @ 200 mls/hr 03/18/17 10:12 Lactated Ringer's IV .Q5H MARC Lorazepam 0.5 mg 03/16/17 18:00 03/18/17 11:21 Ativan IVP Not Given BID MARC Ondansetron HCl 4 mg 03/15/17 08:52 03/16/17 13:07 Zofran Inj IVP 4 mg Q4H PRN Administration Nausea/Vomiting Pantoprazole Sodium 40 mg 03/17/17 10:00 03/18/17 11:15 Protonix Inj IVP 40 mg DAILY MARC Administration - Patient Studies Lab Studies: Microbiology Studies 03/15/17 09:44 Blood Culture - Preliminary Blood NO GROWTH AFTER 3 DAYS 03/15/17 09:44 Blood Culture - Preliminary Blood NO GROWTH AFTER 3 DAYS Lab Studies 03/18/17 03/18/17 03/18/17 Range/Units 07:00 05:15 03:36 WBC (4.8-10.8) K/uL RBC (4.40-5.90) Mil/uL Hgb (12.0-18.0) g/dL Hct (35.0-51.0) % MCV (80.0-94.0) fL MCH (27.0-31.0) pg MCHC (33.0-37.0) g/dL RDW (11.5-14.5) % Plt Count (130-400) K/uL MPV (7.2-11.7) fL Neut % (Auto) (50.0-75.0) % Lymph % (Auto) (20.0-40.0) % [place] % (Auto) (0.0-10.0) % Eos % (Auto) (0.0-4.0) % Baso % (Auto) (0.0-2.0) % Neut # (1.8-7.0) K/uL Lymph # (1.0-4.3) K/uL [place] # (0.0-0.8) K/uL Eos # (0.0-0.7) K/uL Baso # (0.0-0.2) K/uL Neutrophils % (Manual) (50-75) % Band Neutrophils % (0-2) % Lymphocytes % (Manual) (20-40) % Monocytes % (Manual) (0-10) % Toxic Granulation Platelet Estimate (NORMAL) Polychromasia Hypochromasia (manual) Anisocytosis (manual) Microcytosis (manual) PT (9.7-12.2) SECONDS INR APTT (21-34) SECONDS Puncture Site [place] pCO2 39 (35-45) mm/Hg pO2 124 H (80-100) mm/Hg HCO3 19.2 L (21-28) mmol/L ABG pH 7.29 L (7.35-7.45) ABG Total CO2 20.0 L (22-28) mmol/L ABG O2 Saturation 99.1 H (95-98) % ABG Base Excess -7.3 L (-2.0-3.0) mmol/L ABG Hemoglobin 12.8 (11.7-17.4) g/dL ABG Carboxyhemoglobin 1.7 H (0.5-1.5) % POC ABG HHb (Measured) 0.9 (0.0-5.0) % ABG Methemoglobin 0.8 (0.0-3.0) % S[place]der Test Na ABG Potassium (3.6-5.2) mmol/L A-a O2 Difference 184.0 mm/Hg Respiratory Index 1.5 Hgb O2 Saturation 96.6 (95.0-98.0) % Sodium 127 L (132-148) mmol/l Chloride 104 (98-107) mmol/L Glucose (75-110) mg/dl Lactate (0.7-2.1) mmol/L Vent Mode Prvc Mechanical Rate 12 FiO2 50.0 % Tidal Volume 500 PEEP 5 Crit Value Called To Crit Value Called By Crit Value Read Back Blood Gas Notified Time Potassium 4.9 (3.6-5.2) mmol/L Carbon Dioxide 21 L (22-30) mmol/L Anion Gap 7 L (10-20) BUN 17 (9-20) mg/dL Creatinine 1.0 (0.8-1.5) mg/dL Est GFR ( Amer) > 60 Est GFR (Non-Af Amer) > 60 Random Glucose 136 H (75-110) mg/dL Lactic Acid 1.3 (0.7-2.1) mmol/L Calcium 7.1 L (8.6-10.4) mg/dl Phosphorus (2.5-4.5) mg/dL Magnesium (1.6-2.3) mg/dL Total Bilirubin 2.2 H (0.2-1.3) mg/dL AST 114 H (17-59) U/L ALT 55 (21-72) U/L Alkaline Phosphatase 126 (38-126) U/L Total Protein 5.2 L (6.3-8.3) g/dL Albumin 2.3 L (3.5-5.0) g/dL Globulin 2.9 (2.2-3.9) gm/dL Albumin/Globulin Ratio 0.8 L (1.0-2.1) Arterial Blood Potassium (3.6-5.2) mmol/L Blood Type Antibody Screen 03/18/17 03/17/17 03/17/17 Range/Units 03:36 20:14 20:14 WBC 14.7 H (4.8-10.8) K/uL RBC 4.81 (4.40-5.90) Mil/uL Hgb 11.8 L (12.0-18.0) g/dL Hct 36.7 (35.0-51.0) % MCV 76.4 L (80.0-94.0) fL MCH 24.6 L (27.0-31.0) pg MCHC 32.2 L (33.0-37.0) g/dL RDW 17.7 H (11.5-14.5) % Plt Count 295 (130-400) K/uL MPV 8.4 (7.2-11.7) fL Neut % (Auto) 85.0 H (50.0-75.0) % Lymph % (Auto) 5.7 L (20.0-40.0) % [place] % (Auto) 7.6 (0.0-10.0) % Eos % (Auto) 0.1 (0.0-4.0) % Baso % (Auto) 1.6 (0.0-2.0) % Neut # 12.5 H (1.8-7.0) K/uL Lymph # 0.8 L (1.0-4.3) K/uL [place] # 1.1 H (0.0-0.8) K/uL Eos # 0.0 (0.0-0.7) K/uL Baso # 0.2 (0.0-0.2) K/uL Neutrophils % (Manual) 70 (50-75) % Band Neutrophils % 12 H* (0-2) % Lymphocytes % (Manual) 10 L (20-40) % Monocytes % (Manual) 8 (0-10) % Toxic Granulation Present Platelet Estimate Normal (NORMAL) Polychromasia Slight Hypochromasia (manual) Anisocytosis (manual) Slight Microcytosis (manual) PT 19.4 H D (9.7-12.2) SECONDS INR 1.7 D APTT 35 H D (21-34) SECONDS Puncture Site pCO2 (35-45) mm/Hg pO2 (80-100) mm/Hg HCO3 (21-28) mmol/L ABG pH (7.35-7.45) ABG Total CO2 (22-28) mmol/L ABG O2 Saturation (95-98) % ABG Base Excess (-2.0-3.0) mmol/L ABG Hemoglobin (11.7-17.4) g/dL ABG Carboxyhemoglobin (0.5-1.5) % POC ABG HHb (Measured) (0.0-5.0) % ABG Methemoglobin (0.0-3.0) % Satinder Test ABG Potassium (3.6-5.2) mmol/L A-a O2 Difference mm/Hg Respiratory Index Hgb O2 Saturation (95.0-98.0) % Sodium 127 L (132-148) mmol/l Chloride 100 (98-107) mmol/L Glucose (75-110) mg/dl Lactate (0.7-2.1) mmol/L Vent Mode Mechanical Rate FiO2 % Tidal Volume PEEP Crit Value Called To Crit Value Called By Crit Value Read Back Blood Gas Notified Time Potassium 4.3 (3.6-5.2) mmol/L Carbon Dioxide 20 L (22-30) mmol/L Anion Gap 11 (10-20) BUN 16 (9-20) mg/dL Creatinine 0.9 (0.8-1.5) mg/dL Est GFR ( Amer) > 60 Est GFR (Non-Af Amer) > 60 Random Glucose 116 H (75-110) mg/dL Lactic Acid (0.7-2.1) mmol/L Calcium 7.6 L (8.6-10.4) mg/dl Phosphorus 3.1 (2.5-4.5) mg/dL Magnesium 1.7 (1.6-2.3) mg/dL Total Bilirubin 3.2 H (0.2-1.3) mg/dL AST 102 H D (17-59) U/L ALT 55 (21-72) U/L Alkaline Phosphatase 154 H D (38-126) U/L Total Protein 5.9 L (6.3-8.3) g/dL Albumin 2.7 L D (3.5-5.0) g/dL Globulin 3.2 (2.2-3.9) gm/dL Albumin/Globulin Ratio 0.8 L (1.0-2.1) Arterial Blood Potassium (3.6-5.2) mmol/L Blood Type Antibody Screen 03/17/17 03/17/17 03/17/17 Range/Units 20:14 20:08 15:50 WBC 12.7 H (4.8-10.8) K/uL RBC 5.22 (4.40-5.90) Mil/uL Hgb 12.8 (12.0-18.0) g/dL Hct 39.9 (35.0-51.0) % MCV 76.3 L (80.0-94.0) fL MCH 24.4 L (27.0-31.0) pg MCHC 32.0 L (33.0-37.0) g/dL RDW 18.0 H (11.5-14.5) % Plt Count 313 (130-400) K/uL MPV 7.8 (7.2-11.7) fL Neut % (Auto) 80.0 H (50.0-75.0) % Lymph % (Auto) 9.4 L (20.0-40.0) % [place] % (Auto) 9.8 (0.0-10.0) % Eos % (Auto) 0.2 (0.0-4.0) % Baso % (Auto) 0.6 (0.0-2.0) % Neut # 10.1 H (1.8-7.0) K/uL Lymph # 1.2 (1.0-4.3) K/uL [place] # 1.2 H (0.0-0.8) K/uL Eos # 0.0 (0.0-0.7) K/uL Baso # 0.1 (0.0-0.2) K/uL Neutrophils % (Manual) 53 (50-75) % Band Neutrophils % 19 H* (0-2) % Lymphocytes % (Manual) 19 L (20-40) % Monocytes % (Manual) 9 (0-10) % Toxic Granulation Platelet Estimate Normal (NORMAL) Polychromasia Slight Hypochromasia (manual) Slight Anisocytosis (manual) Slight Microcytosis (manual) Slight PT (9.7-12.2) SECONDS INR APTT (21-34) SECONDS Puncture Site A line Rra pCO2 30 L 35 (35-45) mm/Hg pO2 331 H 107 H (80-100) mm/Hg HCO3 20.0 L 22.5 (21-28) mmol/L ABG pH 7.38 7.39 (7.35-7.45) ABG Total CO2 18.6 L 22.3 (22-28) mmol/L ABG O2 Saturation 99.5 H 98.8 H (95-98) % ABG Base Excess -6.3 L -3.1 L (-2.0-3.0) mmol/L ABG Hemoglobin 12.1 (11.7-17.4) g/dL ABG Carboxyhemoglobin 1.3 (0.5-1.5) % POC ABG HHb (Measured) 0.5 (0.0-5.0) % ABG Methemoglobin 1.1 (0.0-3.0) % S[place]der Test Na Na ABG Potassium 4.0 (3.6-5.2) mmol/L A-a O2 Difference 345.0 mm/Hg Respiratory Index 1.0 Hgb O2 Saturation 97.0 (95.0-98.0) % Sodium 128.0 L (132-148) mmol/l Chloride 101.0 (98-107) mmol/L Glucose 115 H (75-110) mg/dl Lactate 1.7 (0.7-2.1) mmol/L Vent Mode Prvc Mechanical Rate 12 FiO2 100.0 % Tidal Volume 500 PEEP 5 Crit Value Called To Crit Value Called By Crit Value Read Back Blood Gas Notified Time Potassium (3.6-5.2) mmol/L Carbon Dioxide (22-30) mmol/L Anion Gap (10-20) BUN (9-20) mg/dL Creatinine (0.8-1.5) mg/dL Est GFR ( Amer) Est GFR (Non-Af Amer) Random Glucose (75-110) mg/dL Lactic Acid (0.7-2.1) mmol/L Calcium (8.6-10.4) mg/dl Phosphorus (2.5-4.5) mg/dL Magnesium (1.6-2.3) mg/dL Total Bilirubin (0.2-1.3) mg/dL AST (17-59) U/L ALT (21-72) U/L Alkaline Phosphatase (38-126) U/L Total Protein (6.3-8.3) g/dL Albumin (3.5-5.0) g/dL Globulin (2.2-3.9) gm/dL Albumin/Globulin Ratio (1.0-2.1) Arterial Blood Potassium 4.0 (3.6-5.2) mmol/L Blood Type Antibody Screen 03/17/17 03/17/17 03/17/17 Range/Units 14:29 14:29 14:25 WBC 18.2 H (4.8-10.8) K/uL RBC 4.54 (4.40-5.90) Mil/uL Hgb 10.9 L (12.0-18.0) g/dL Hct 33.9 L (35.0-51.0) % MCV 74.6 L (80.0-94.0) fL MCH 24.1 L (27.0-31.0) pg MCHC 32.3 L (33.0-37.0) g/dL RDW 17.4 H (11.5-14.5) % Plt Count 286 (130-400) K/uL MPV 7.7 (7.2-11.7) fL Neut % (Auto) (50.0-75.0) % Lymph % (Auto) (20.0-40.0) % [place] % (Auto) (0.0-10.0) % Eos % (Auto) (0.0-4.0) % Baso % (Auto) (0.0-2.0) % Neut # (1.8-7.0) K/uL Lymph # (1.0-4.3) K/uL [place] # (0.0-0.8) K/uL Eos # (0.0-0.7) K/uL Baso # (0.0-0.2) K/uL Neutrophils % (Manual) (50-75) % Band Neutrophils % (0-2) % Lymphocytes % (Manual) (20-40) % Monocytes % (Manual) (0-10) % Toxic Granulation Platelet Estimate (NORMAL) Polychromasia Hypochromasia (manual) Anisocytosis (manual) Microcytosis (manual) PT (9.7-12.2) SECONDS INR APTT (21-34) SECONDS Puncture Site L/rad pCO2 41 (35-45) mm/Hg pO2 170 H (80-100) mm/Hg HCO3 23.2 (21-28) mmol/L ABG pH 7.36 (7.35-7.45) ABG Total CO2 24.5 (22-28) mmol/L ABG O2 Saturation 99.3 H (95-98) % ABG Base Excess -2.2 L (-2.0-3.0) mmol/L ABG Hemoglobin 11.5 L (11.7-17.4) g/dL ABG Carboxyhemoglobin 1.6 H (0.5-1.5) % POC ABG HHb (Measured) 0.7 (0.0-5.0) % ABG Methemoglobin 1.1 (0.0-3.0) % S[place] Test Pos ABG Potassium (3.6-5.2) mmol/L A-a O2 Difference 492.0 mm/Hg Respiratory Index 2.9 Hgb O2 Saturation 96.5 (95.0-98.0) % Sodium 127 L (132-148) mmol/l Chloride 97 L (98-107) mmol/L Glucose (75-110) mg/dl Lactate (0.7-2.1) mmol/L Vent Mode Mechanical Rate FiO2 100.0 % Tidal Volume PEEP Crit Value Called To recruiting internshipraghavendra gallagher Crit Value Called By Agustín boggs [facility] Crit Value Read Back Y Blood Gas Notified Time 1435 Potassium 4.1 (3.6-5.2) mmol/L Carbon Dioxide 25 (22-30) mmol/L Anion Gap 9 L (10-20) BUN 12 (9-20) mg/dL Creatinine 0.7 L (0.8-1.5) mg/dL Est GFR ( Amer) > 60 Est GFR (Non-Af Amer) > 60 Random Glucose 98 (75-110) mg/dL Lactic Acid (0.7-2.1) mmol/L Calcium 8.0 L (8.6-10.4) mg/dl Phosphorus (2.5-4.5) mg/dL Magnesium (1.6-2.3) mg/dL Total Bilirubin (0.2-1.3) mg/dL AST (17-59) U/L ALT (21-72) U/L Alkaline Phosphatase (38-126) U/L Total Protein (6.3-8.3) g/dL Albumin (3.5-5.0) g/dL Globulin (2.2-3.9) gm/dL Albumin/Globulin Ratio (1.0-2.1) Arterial Blood Potassium (3.6-5.2) mmol/L Blood Type Antibody Screen 03/17/17 03/17/17 Range/Units 14:00 12:04 WBC (4.8-10.8) K/uL RBC (4.40-5.90) Mil/uL Hgb (12.0-18.0) g/dL Hct (35.0-51.0) % MCV (80.0-94.0) fL MCH (27.0-31.0) pg MCHC (33.0-37.0) g/dL RDW (11.5-14.5) % Plt Count (130-400) K/uL MPV (7.2-11.7) fL Neut % (Auto) (50.0-75.0) % Lymph % (Auto) (20.0-40.0) % [place] % (Auto) (0.0-10.0) % Eos % (Auto) (0.0-4.0) % Baso % (Auto) (0.0-2.0) % Neut # (1.8-7.0) K/uL Lymph # (1.0-4.3) K/uL [place] # (0.0-0.8) K/uL Eos # (0.0-0.7) K/uL Baso # (0.0-0.2) K/uL Neutrophils % (Manual) (50-75) % Band Neutrophils % (0-2) % Lymphocytes % (Manual) (20-40) % Monocytes % (Manual) (0-10) % Toxic Granulation Platelet Estimate (NORMAL) Polychromasia Hypochromasia (manual) Anisocytosis (manual) Microcytosis (manual) PT (9.7-12.2) SECONDS INR APTT (21-34) SECONDS Puncture Site R/rad pCO2 42 (35-45) mm/Hg pO2 89 (80-100) mm/Hg HCO3 17.8 L (21-28) mmol/L ABG pH 7.24 L (7.35-7.45) ABG Total CO2 19.3 L (22-28) mmol/L ABG O2 Saturation 97.6 (95-98) % ABG Base Excess -9.0 L (-2.0-3.0) mmol/L ABG Hemoglobin (11.7-17.4) g/dL ABG Carboxyhemoglobin (0.5-1.5) % POC ABG HHb (Measured) (0.0-5.0) % ABG Methemoglobin (0.0-3.0) % Satinder Test Pos ABG Potassium 2.5 L* (3.6-5.2) mmol/L A-a O2 Difference 572.0 mm/Hg Respiratory Index 6.4 Hgb O2 Saturation (95.0-98.0) % Sodium 140.0 (132-148) mmol/l Chloride 113.0 H (98-107) mmol/L Glucose 78 (75-110) mg/dl Lactate 0.8 (0.7-2.1) mmol/L Vent Mode Mechanical Rate FiO2 100.0 % Tidal Volume PEEP Crit Value Called To recruiting internshipraghavendra perdomo Crit Value Called By Agustín boggs [facility] Crit Value Read Back Y Blood Gas Notified Time 1409 Potassium (3.6-5.2) mmol/L Carbon Dioxide (22-30) mmol/L Anion Gap (10-20) BUN (9-20) mg/dL Creatinine (0.8-1.5) mg/dL Est GFR ( Amer) Est GFR (Non-Af Amer) Random Glucose (75-110) mg/dL Lactic Acid (0.7-2.1) mmol/L Calcium (8.6-10.4) mg/dl Phosphorus (2.5-4.5) mg/dL Magnesium (1.6-2.3) mg/dL Total Bilirubin (0.2-1.3) mg/dL AST (17-59) U/L ALT (21-72) U/L Alkaline Phosphatase (38-126) U/L Total Protein (6.3-8.3) g/dL Albumin (3.5-5.0) g/dL Globulin (2.2-3.9) gm/dL Albumin/Globulin Ratio (1.0-2.1) Arterial Blood Potassium 2.5 L* (3.6-5.2) mmol/L Blood Type O POSITIVE Antibody Screen Negative Laboratory Results - last 24 hr 03/17/17 03/17/17 03/17/17 12:04 14:00 14:25 WBC RBC Hgb Hct MCV MCH MCHC RDW Plt Count MPV Neut % (Auto) Lymph % (Auto) [place] % (Auto) Eos % (Auto) Baso % (Auto) Neut # Lymph # [place] # Eos # Baso # Neutrophils % (Manual) Band Neutrophils % Lymphocytes % (Manual) Monocytes % (Manual) Toxic Granulation Platelet Estimate Polychromasia Hypochromasia (manual) Anisocytosis (manual) Microcytosis (manual) PT INR APTT Puncture Site R/rad L/rad pCO2 42 41 pO2 89 170 H HCO3 17.8 L 23.2 ABG pH 7.24 L 7.36 ABG Total CO2 19.3 L 24.5 ABG O2 Saturation 97.6 99.3 H ABG Base Excess -9.0 L -2.2 L ABG Hemoglobin 11.5 L ABG Carboxyhemoglobin 1.6 H POC ABG HHb (Measured) 0.7 ABG Methemoglobin 1.1 Satinder Test Pos Pos ABG Potassium 2.5 L* A-a O2 Difference 572.0 492.0 Respiratory Index 6.4 2.9 Hgb O2 Saturation 96.5 Sodium 140.0 Chloride 113.0 H Glucose 78 Lactate 0.8 Vent Mode Mechanical Rate FiO2 100.0 100.0 Tidal Volume PEEP Crit Value Called To recruiting internshipraghavendra perdomo recruiting internshipraghavendra gallagher Crit Value Called By Agustín boggs decision science analystabran boggs decision science analyst Crit Value Read Back Y Y Blood Gas Notified Time 1400 1435 Potassium Carbon Dioxide Anion Gap BUN Creatinine Est GFR ( Amer) Est GFR (Non-Af Amer) Random Glucose Lactic Acid Calcium Phosphorus Magnesium Total Bilirubin AST ALT Alkaline Phosphatase Total Protein Albumin Globulin Albumin/Globulin Ratio Arterial Blood Potassium 2.5 L* Blood Type O POSITIVE Antibody Screen Negative 03/17/17 03/17/17 03/17/17 14:29 14:29 15:50 WBC 18.2 H RBC 4.54 Hgb 10.9 L Hct 33.9 L MCV 74.6 L MCH 24.1 L MCHC 32.3 L RDW 17.4 H Plt Count 286 MPV 7.7 Neut % (Auto) Lymph % (Auto) [place] % (Auto) Eos % (Auto) Baso % (Auto) Neut # Lymph # [place] # Eos # Baso # Neutrophils % (Manual) Band Neutrophils % Lymphocytes % (Manual) Monocytes % (Manual) Toxic Granulation Platelet Estimate Polychromasia Hypochromasia (manual) Anisocytosis (manual) Microcytosis (manual) PT INR APTT Puncture Site Rra pCO2 35 pO2 107 H HCO3 22.5 ABG pH 7.39 ABG Total CO2 22.3 ABG O2 Saturation 98.8 H ABG Base Excess -3.1 L ABG Hemoglobin ABG Carboxyhemoglobin POC ABG HHb (Measured) ABG Methemoglobin Satinder Test Na ABG Potassium 4.0 A-a O2 Difference Respiratory Index Hgb O2 Saturation Sodium 127 L 128.0 L Chloride 97 L 101.0 Glucose 115 H Lactate 1.7 Vent Mode Mechanical Rate FiO2 Tidal Volume PEEP Crit Value Called To Crit Value Called By Crit Value Read Back Blood Gas Notified Time Potassium 4.1 Carbon Dioxide 25 Anion Gap 9 L BUN 12 Creatinine 0.7 L Est GFR ( Amer) > 60 Est GFR (Non-Af Amer) > 60 Random Glucose 98 Lactic Acid Calcium 8.0 L Phosphorus Magnesium Total Bilirubin AST ALT Alkaline Phosphatase Total Protein Albumin Globulin Albumin/Globulin Ratio Arterial Blood Potassium 4.0 Blood Type Antibody Screen 03/17/17 03/17/17 03/17/17 20:08 20:14 20:14 WBC 12.7 H RBC 5.22 Hgb 12.8 Hct 39.9 MCV 76.3 L MCH 24.4 L MCHC 32.0 L RDW 18.0 H Plt Count 313 MPV 7.8 Neut % (Auto) 80.0 H Lymph % (Auto) 9.4 L [place] % (Auto) 9.8 Eos % (Auto) 0.2 Baso % (Auto) 0.6 Neut # 10.1 H Lymph # 1.2 [place] # 1.2 H Eos # 0.0 Baso # 0.1 Neutrophils % (Manual) 53 Band Neutrophils % 19 H* Lymphocytes % (Manual) 19 L Monocytes % (Manual) 9 Toxic Granulation Platelet Estimate Normal Polychromasia Slight Hypochromasia (manual) Slight Anisocytosis (manual) Slight Microcytosis (manual) Slight PT 19.4 H D INR 1.7 D APTT 35 H D Puncture Site A line pCO2 30 L pO2 331 H HCO3 20.0 L ABG pH 7.38 ABG Total CO2 18.6 L ABG O2 Saturation 99.5 H ABG Base Excess -6.3 L ABG Hemoglobin 12.1 ABG Carboxyhemoglobin 1.3 POC ABG HHb (Measured) 0.5 ABG Methemoglobin 1.1 Satinder Test Na ABG Potassium A-a O2 Difference 345.0 Respiratory Index 1.0 Hgb O2 Saturation 97.0 Sodium Chloride Glucose Lactate Vent Mode Prvc Mechanical Rate 12 FiO2 100.0 Tidal Volume 500 PEEP 5 Crit Value Called To Crit Value Called By Crit Value Read Back Blood Gas Notified Time Potassium Carbon Dioxide Anion Gap BUN Creatinine Est GFR ( Amer) Est GFR (Non-Af Amer) Random Glucose Lactic Acid Calcium Phosphorus Magnesium Total Bilirubin AST ALT Alkaline Phosphatase Total Protein Albumin Globulin Albumin/Globulin Ratio Arterial Blood Potassium Blood Type Antibody Screen 03/17/17 03/18/17 03/18/17 20:14 03:36 03:36 WBC 14.7 H RBC 4.81 Hgb 11.8 L Hct 36.7 MCV 76.4 L MCH 24.6 L MCHC 32.2 L RDW 17.7 H Plt Count 295 MPV 8.4 Neut % (Auto) 85.0 H Lymph % (Auto) 5.7 L Z[place]ata % (Auto) 7.6 Eos % (Auto) 0.1 Baso % (Auto) 1.6 Neut # 12.5 H Lymph # 0.8 L Zapata # 1.1 H Eos # 0.0 Baso # 0.2 Neutrophils % (Manual) 70 Band Neutrophils % 12 H* Lymphocytes % (Manual) 10 L Monocytes % (Manual) 8 Toxic Granulation Present Platelet Estimate Normal Polychromasia Slight Hypochromasia (manual) Anisocytosis (manual) Slight Microcytosis (manual) PT INR APTT Puncture Site pCO2 pO2 HCO3 ABG pH ABG Total CO2 ABG O2 Saturation ABG Base Excess ABG Hemoglobin ABG Carboxyhemoglobin POC ABG HHb (Measured) ABG Methemoglobin Satinder Test ABG Potassium A-a O2 Difference Respiratory Index Hgb O2 Saturation Sodium 127 L 127 L Chloride 100 104 Glucose Lactate Vent Mode Mechanical Rate FiO2 Tidal Volume PEEP Crit Value Called To Crit Value Called By Crit Value Read Back Blood Gas Notified Time Potassium 4.3 4.9 Carbon Dioxide 20 L 21 L Anion Gap 11 7 L BUN 16 17 Creatinine 0.9 1.0 Est GFR ( Amer) > 60 > 60 Est GFR (Non-Af Amer) > 60 > 60 Random Glucose 116 H 136 H Lactic Acid Calcium 7.6 L 7.1 L Phosphorus 3.1 Magnesium 1.7 Total Bilirubin 3.2 H 2.2 H AST 102 H D 114 H ALT 55 55 Alkaline Phosphatase 154 H D 126 Total Protein 5.9 L 5.2 L Albumin 2.7 L D 2.3 L Globulin 3.2 2.9 Albumin/Globulin Ratio 0.8 L 0.8 L Arterial Blood Potassium Blood Type Antibody Screen 03/18/17 03/18/17 05:15 07:00 WBC RBC Hgb Hct MCV MCH MCHC RDW Plt Count MPV Neut % (Auto) Lymph % (Auto) Zapata % (Auto) Eos % (Auto) Baso % (Auto) Neut # Lymph # Zapata # Eos # Baso # Neutrophils % (Manual) Band Neutrophils % Lymphocytes % (Manual) Monocytes % (Manual) Toxic Granulation Platelet Estimate Polychromasia Hypochromasia (manual) Anisocytosis (manual) Microcytosis (manual) PT INR APTT Puncture Site Ariana pCO2 39 pO2 124 H HCO3 19.2 L ABG pH 7.29 L ABG Total CO2 20.0 L ABG O2 Saturation 99.1 H ABG Base Excess -7.3 L ABG Hemoglobin 12.8 ABG Carboxyhemoglobin 1.7 H POC ABG HHb (Measured) 0.9 ABG Methemoglobin 0.8 Satinder Test Na ABG Potassium A-a O2 Difference 184.0 Respiratory Index 1.5 Hgb O2 Saturation 96.6 Sodium Chloride Glucose Lactate Vent Mode Prvc Mechanical Rate 12 FiO2 50.0 Tidal Volume 500 PEEP 5 Crit Value Called To Crit Value Called By Crit Value Read Back Blood Gas Notified Time Potassium Carbon Dioxide Anion Gap BUN Creatinine Est GFR ( Amer) Est GFR (Non-Af Amer) Random Glucose Lactic Acid 1.3 Calcium Phosphorus Magnesium Total Bilirubin AST ALT Alkaline Phosphatase Total Protein Albumin Globulin Albumin/Globulin Ratio Arterial Blood Potassium Blood Type Antibody Screen Critical Care Progress Note - Nutrition Nutrition: Nutrition Category Date Time Status NPO Diet [DIET] Diets 03/16/17 Breakfast Active Assessment/Plan - Assessment and Plan (Free Text) Assessment: Neuro: adjustment disorder w/ anxiety and depression AA&Ox3 Psych ( Dr. Moran) Ativan 0.5 IV BID, switch to PO when ready Pulm: intubated Chest xray: increasing airspace disease R>L Ab.29/39/124/19.2 Vent: 500/50/12/5 Fentanyl 21.54 mls/hr IV Duoneb 3ml INH RQ6 Renal: I: 1630.7 mls IV/ O:600 mls urine 12H Balance: + 1030.7 mls BUN/Cr: 17/1.0 Fluids, electrolytes, nutrition: Fluids: LR 200mls/hr, albumin 12.5 IV Q1 Nutrition: NPO Infectious disease: ID (Dr. Hutchins) WBC: 14.7 Band: 12 Chest xray: increasing airspace disease R>L 03/15/17 Procalcitonin: 0.41 Cefepime 100mls/hr IV Q8 Flagyl 500 mg 100mls/hr IV Q8 Hematology: H&H: 11.8/36.7 Plt: 295 hemOnc (Dr. Quiros) CEA 2590.0 Further recommendation pending result of liver biopsy GI: obstructive colonic mass, GI bleed AST/ALT: 114/55 Al. phos.: 126 Tbili: 2.2 Guac + for occult blood Protonix 40 mg IV QD GI (Dr. Esparza) Flex. Sigmoidoscopy with biopsy 03/16/17 NGT NPO Surgery (Dr. Steinberg) Left hemicolectomy of descending and sigmoid colon, colostomy, liver biopsy POD #1 MARIBELL drain: serosanguineous 30CC Bupivacaine local 4mls/hr once Fentanyl Prophylaxis GI: Protonix 40 IV QD DVT: SCDs, lovenox <Wettimunclaire,Osman - Last Filed: 03/18/17 15:47> CCU Objective - Vital Signs / Intake & Output Intake and Output (Last 8hrs): Intake & Output 03/18/17 03/18/17 03/18/17 06:59 14:59 22:59 Intake Total 2800.2 1630.7 Output Total 245 20 Balance 2555.2 1610.7 Weight 197 lb 8.547 oz Intake: IV 155 100 Intake, IV Amount 2645.2 1530.7 Left Hand 975 450 left EJ 1500 1000 left hand #2 170.2 80.7 Output: Drainage 70 Right Lower Abdomen 70 Urine 175 20 Urethral (Fox) 175 20 - Medications Active Medications: Active Medications Generic Name Dose Route Start Last Admin Trade Name Freq PRN Reason Stop Dose Admin Albumin Human 12.5 gm 03/18/17 10:04 03/18/17 13:55 Albumin Human 25% (12.5 Gm/50 Ml) IV 03/18/17 17:01 12.5 gm Q1 MARC Administration Albuterol/Ipratropium 3 ml 03/18/17 14:00 Duoneb 3 Mg/0.5 Mg (3 Ml) Ud INH RQ6 MARC Enoxaparin Sodium 30 mg 03/18/17 10:00 03/18/17 11:14 Lovenox SC 30 mg DAILY MARC Administration Home Med 0 drop 03/15/17 21:15 03/18/17 11:20 Patient's Own Drops OU 1 drop BID MARC Administration Home Med 0 drop 03/15/17 22:00 03/17/17 22:28 Patient's Own Drops OU Not Given HS MARC Metronidazole 500 mg in 100 mls @ 100 mls/hr 03/15/17 14:00 03/18/17 05:19 Flagyl IVPB 100 mls/hr Q8 MARC Administration Cefepime HCl 2 gm in 100 mls @ 100 mls/hr 03/16/17 12:00 03/18/17 11:14 Maxipime Iv 2 Gm Premix IVPB 03/21/17 12:01 100 mls/hr Q8H MARC Administration Fentanyl Citrate 2,500 mcg/ 300 mls @ 21.54 mls/hr 03/17/17 19:15 03/18/17 07 :31 Dextrose IV 2.49 mcg/kg/hr [id number] PRN 26.9 mls/hr Protocol Administration 2 MCG/KG/HR BUPIVACAINE 0.125%/0.9% NACL 600 mls @ 4 mls/hr 03/17/17 19:31 03/17/17 20:32 Bupivacaine-Ns 0.125% On-Q [employer] IJ 03/24/17 01:30 4 mls/hr ONCE ONE Administration Propofol 1,000 mg in 100 mls @ 2.693 mls/hr 03/17/17 19:54 Diprivan IV .Q24H PRN TITRATE PER MD ORDER Protocol 5 MCG/KG/MIN Lactated Ringer's 1,000 mls @ 200 mls/hr 03/18/17 10:12 Lactated Ringer's IV .Q5H MARC Lorazepam 0.5 mg 03/16/17 18:00 03/18/17 11:21 Ativan IVP Not Given BID MARC Ondansetron HCl 4 mg 03/15/17 08:52 03/16/17 13:07 Zofran Inj IVP 4 mg Q4H PRN Administration Nausea/Vomiting Pantoprazole Sodium 40 mg 03/17/17 10:00 03/18/17 11:15 Protonix Inj IVP 40 mg DAILY MARC Administration - Patient Studies Lab Studies: Microbiology Studies 03/17/17 11:58 Urine Culture - Final Urine,Clean Catch No Growth (<1,000 CFU/ML) 03/15/17 09:44 Blood Culture - Preliminary Blood NO GROWTH AFTER 3 DAYS 03/15/17 09:44 Blood Culture - Preliminary Blood NO GROWTH AFTER 3 DAYS Lab Studies 03/18/17 03/18/17 03/18/17 Range/Units 07:00 05:15 03:36 WBC (4.8-10.8) K/uL RBC (4.40-5.90) Mil/uL Hgb (12.0-18.0) g/dL Hct (35.0-51.0) % MCV (80.0-94.0) fL MCH (27.0-31.0) pg MCHC (33.0-37.0) g/dL RDW (11.5-14.5) % Plt Count (130-400) K/uL MPV (7.2-11.7) fL Neut % (Auto) (50.0-75.0) % Lymph % (Auto) (20.0-40.0) % [place] % (Auto) (0.0-10.0) % Eos % (Auto) (0.0-4.0) % Baso % (Auto) (0.0-2.0) % Neut # (1.8-7.0) K/uL Lymph # (1.0-4.3) K/uL [place] # (0.0-0.8) K/uL Eos # (0.0-0.7) K/uL Baso # (0.0-0.2) K/uL Neutrophils % (Manual) (50-75) % Band Neutrophils % (0-2) % Lymphocytes % (Manual) (20-40) % Monocytes % (Manual) (0-10) % Toxic Granulation Platelet Estimate (NORMAL) Polychromasia Hypochromasia (manual) Anisocytosis (manual) Microcytosis (manual) PT (9.7-12.2) SECONDS INR APTT (21-34) SECONDS Puncture Site [place] pCO2 39 (35-45) mm/Hg pO2 124 H (80-100) mm/Hg HCO3 19.2 L (21-28) mmol/L ABG pH 7.29 L (7.35-7.45) ABG Total CO2 20.0 L (22-28) mmol/L ABG O2 Saturation 99.1 H (95-98) % ABG Base Excess -7.3 L (-2.0-3.0) mmol/L ABG Hemoglobin 12.8 (11.7-17.4) g/dL ABG Carboxyhemoglobin 1.7 H (0.5-1.5) % POC ABG HHb (Measured) 0.9 (0.0-5.0) % ABG Methemoglobin 0.8 (0.0-3.0) % S[place]der Test Na ABG Potassium (3.6-5.2) mmol/L A-a O2 Difference 184.0 mm/Hg Respiratory Index 1.5 Hgb O2 Saturation 96.6 (95.0-98.0) % Sodium 127 L (132-148) mmol/l Chloride 104 (98-107) mmol/L Glucose (75-110) mg/dl Lactate (0.7-2.1) mmol/L Vent Mode Prvc Mechanical Rate 12 FiO2 50.0 % Tidal Volume 500 PEEP 5 Potassium 4.9 (3.6-5.2) mmol/L Carbon Dioxide 21 L (22-30) mmol/L Anion Gap 7 L (10-20) BUN 17 (9-20) mg/dL Creatinine 1.0 (0.8-1.5) mg/dL Est GFR ( Amer) > 60 Est GFR (Non-Af Amer) > 60 Random Glucose 136 H (75-110) mg/dL Lactic Acid 1.3 (0.7-2.1) mmol/L Calcium 7.1 L (8.6-10.4) mg/dl Phosphorus (2.5-4.5) mg/dL Magnesium (1.6-2.3) mg/dL Total Bilirubin 2.2 H (0.2-1.3) mg/dL AST 114 H (17-59) U/L ALT 55 (21-72) U/L Alkaline Phosphatase 126 (38-126) U/L Total Protein 5.2 L (6.3-8.3) g/dL Albumin 2.3 L (3.5-5.0) g/dL Globulin 2.9 (2.2-3.9) gm/dL Albumin/Globulin Ratio 0.8 L (1.0-2.1) Arterial Blood Potassium (3.6-5.2) mmol/L Blood Type Antibody Screen 03/18/17 03/17/17 03/17/17 Range/Units 03:36 20:14 20:14 WBC 14.7 H (4.8-10.8) K/uL RBC 4.81 (4.40-5.90) Mil/uL Hgb 11.8 L (12.0-18.0) g/dL Hct 36.7 (35.0-51.0) % MCV 76.4 L (80.0-94.0) fL MCH 24.6 L (27.0-31.0) pg MCHC 32.2 L (33.0-37.0) g/dL RDW 17.7 H (11.5-14.5) % Plt Count 295 (130-400) K/uL MPV 8.4 (7.2-11.7) fL Neut % (Auto) 85.0 H (50.0-75.0) % Lymph % (Auto) 5.7 L (20.0-40.0) % [place] % (Auto) 7.6 (0.0-10.0) % Eos % (Auto) 0.1 (0.0-4.0) % Baso % (Auto) 1.6 (0.0-2.0) % Neut # 12.5 H (1.8-7.0) K/uL Lymph # 0.8 L (1.0-4.3) K/uL [place] # 1.1 H (0.0-0.8) K/uL Eos # 0.0 (0.0-0.7) K/uL Baso # 0.2 (0.0-0.2) K/uL Neutrophils % (Manual) 70 (50-75) % Band Neutrophils % 12 H* (0-2) % Lymphocytes % (Manual) 10 L (20-40) % Monocytes % (Manual) 8 (0-10) % Toxic Granulation Present Platelet Estimate Normal (NORMAL) Polychromasia Slight Hypochromasia (manual) Anisocytosis (manual) Slight Microcytosis (manual) PT 19.4 H D (9.7-12.2) SECONDS INR 1.7 D APTT 35 H D (21-34) SECONDS Puncture Site pCO2 (35-45) mm/Hg pO2 (80-100) mm/Hg HCO3 (21-28) mmol/L ABG pH (7.35-7.45) ABG Total CO2 (22-28) mmol/L ABG O2 Saturation (95-98) % ABG Base Excess (-2.0-3.0) mmol/L ABG Hemoglobin (11.7-17.4) g/dL ABG Carboxyhemoglobin (0.5-1.5) % POC ABG HHb (Measured) (0.0-5.0) % ABG Methemoglobin (0.0-3.0) % [place] Test ABG Potassium (3.6-5.2) mmol/L A-a O2 Difference mm/Hg Respiratory Index Hgb O2 Saturation (95.0-98.0) % Sodium 127 L (132-148) mmol/l Chloride 100 (98-107) mmol/L Glucose (75-110) mg/dl Lactate (0.7-2.1) mmol/L Vent Mode Mechanical Rate FiO2 % Tidal Volume PEEP Potassium 4.3 (3.6-5.2) mmol/L Carbon Dioxide 20 L (22-30) mmol/L Anion Gap 11 (10-20) BUN 16 (9-20) mg/dL Creatinine 0.9 (0.8-1.5) mg/dL Est GFR ( Amer) > 60 Est GFR (Non-Af Amer) > 60 Random Glucose 116 H (75-110) mg/dL Lactic Acid (0.7-2.1) mmol/L Calcium 7.6 L (8.6-10.4) mg/dl Phosphorus 3.1 (2.5-4.5) mg/dL Magnesium 1.7 (1.6-2.3) mg/dL Total Bilirubin 3.2 H (0.2-1.3) mg/dL AST 102 H D (17-59) U/L ALT 55 (21-72) U/L Alkaline Phosphatase 154 H D (38-126) U/L Total Protein 5.9 L (6.3-8.3) g/dL Albumin 2.7 L D (3.5-5.0) g/dL Globulin 3.2 (2.2-3.9) gm/dL Albumin/Globulin Ratio 0.8 L (1.0-2.1) Arterial Blood Potassium (3.6-5.2) mmol/L Blood Type Antibody Screen 03/17/17 03/17/17 03/17/17 Range/Units 20:14 20:08 15:50 WBC 12.7 H (4.8-10.8) K/uL RBC 5.22 (4.40-5.90) Mil/uL Hgb 12.8 (12.0-18.0) g/dL Hct 39.9 (35.0-51.0) % MCV 76.3 L (80.0-94.0) fL MCH 24.4 L (27.0-31.0) pg MCHC 32.0 L (33.0-37.0) g/dL RDW 18.0 H (11.5-14.5) % Plt Count 313 (130-400) K/uL MPV 7.8 (7.2-11.7) fL Neut % (Auto) 80.0 H (50.0-75.0) % Lymph % (Auto) 9.4 L (20.0-40.0) % [place] % (Auto) 9.8 (0.0-10.0) % Eos % (Auto) 0.2 (0.0-4.0) % Baso % (Auto) 0.6 (0.0-2.0) % Neut # 10.1 H (1.8-7.0) K/uL Lymph # 1.2 (1.0-4.3) K/uL [place] # 1.2 H (0.0-0.8) K/uL Eos # 0.0 (0.0-0.7) K/uL Baso # 0.1 (0.0-0.2) K/uL Neutrophils % (Manual) 53 (50-75) % Band Neutrophils % 19 H* (0-2) % Lymphocytes % (Manual) 19 L (20-40) % Monocytes % (Manual) 9 (0-10) % Toxic Granulation Platelet Estimate Normal (NORMAL) Polychromasia Slight Hypochromasia (manual) Slight Anisocytosis (manual) Slight Microcytosis (manual) Slight PT (9.7-12.2) SECONDS INR APTT (21-34) SECONDS Puncture Site A line Rra pCO2 30 L 35 (35-45) mm/Hg pO2 331 H 107 H (80-100) mm/Hg HCO3 20.0 L 22.5 (21-28) mmol/L ABG pH 7.38 7.39 (7.35-7.45) ABG Total CO2 18.6 L 22.3 (22-28) mmol/L ABG O2 Saturation 99.5 H 98.8 H (95-98) % ABG Base Excess -6.3 L -3.1 L (-2.0-3.0) mmol/L ABG Hemoglobin 12.1 (11.7-17.4) g/dL ABG Carboxyhemoglobin 1.3 (0.5-1.5) % POC ABG HHb (Measured) 0.5 (0.0-5.0) % ABG Methemoglobin 1.1 (0.0-3.0) % S[place]der Test Na Na ABG Potassium 4.0 (3.6-5.2) mmol/L A-a O2 Difference 345.0 mm/Hg Respiratory Index 1.0 Hgb O2 Saturation 97.0 (95.0-98.0) % Sodium 128.0 L (132-148) mmol/l Chloride 101.0 (98-107) mmol/L Glucose 115 H (75-110) mg/dl Lactate 1.7 (0.7-2.1) mmol/L Vent Mode Prvc Mechanical Rate 12 FiO2 100.0 % Tidal Volume 500 PEEP 5 Potassium (3.6-5.2) mmol/L Carbon Dioxide (22-30) mmol/L Anion Gap (10-20) BUN (9-20) mg/dL Creatinine (0.8-1.5) mg/dL Est GFR ( Amer) Est GFR (Non-Af Amer) Random Glucose (75-110) mg/dL Lactic Acid (0.7-2.1) mmol/L Calcium (8.6-10.4) mg/dl Phosphorus (2.5-4.5) mg/dL Magnesium (1.6-2.3) mg/dL Total Bilirubin (0.2-1.3) mg/dL AST (17-59) U/L ALT (21-72) U/L Alkaline Phosphatase (38-126) U/L Total Protein (6.3-8.3) g/dL Albumin (3.5-5.0) g/dL Globulin (2.2-3.9) gm/dL Albumin/Globulin Ratio (1.0-2.1) Arterial Blood Potassium 4.0 (3.6-5.2) mmol/L Blood Type Antibody Screen 03/17/17 Range/Units 12:04 WBC (4.8-10.8) K/uL RBC (4.40-5.90) Mil/uL Hgb (12.0-18.0) g/dL Hct (35.0-51.0) % MCV (80.0-94.0) fL MCH (27.0-31.0) pg MCHC (33.0-37.0) g/dL RDW (11.5-14.5) % Plt Count (130-400) K/uL MPV (7.2-11.7) fL Neut % (Auto) (50.0-75.0) % Lymph % (Auto) (20.0-40.0) % [place] % (Auto) (0.0-10.0) % Eos % (Auto) (0.0-4.0) % Baso % (Auto) (0.0-2.0) % Neut # (1.8-7.0) K/uL Lymph # (1.0-4.3) K/uL [place] # (0.0-0.8) K/uL Eos # (0.0-0.7) K/uL Baso # (0.0-0.2) K/uL Neutrophils % (Manual) (50-75) % Band Neutrophils % (0-2) % Lymphocytes % (Manual) (20-40) % Monocytes % (Manual) (0-10) % Toxic Granulation Platelet Estimate (NORMAL) Polychromasia Hypochromasia (manual) Anisocytosis (manual) Microcytosis (manual) PT (9.7-12.2) SECONDS INR APTT (21-34) SECONDS Puncture Site pCO2 (35-45) mm/Hg pO2 (80-100) mm/Hg HCO3 (21-28) mmol/L ABG pH (7.35-7.45) ABG Total CO2 (22-28) mmol/L ABG O2 Saturation (95-98) % ABG Base Excess (-2.0-3.0) mmol/L ABG Hemoglobin (11.7-17.4) g/dL ABG Carboxyhemoglobin (0.5-1.5) % POC ABG HHb (Measured) (0.0-5.0) % ABG Methemoglobin (0.0-3.0) % [place] Test ABG Potassium (3.6-5.2) mmol/L A-a O2 Difference mm/Hg Respiratory Index Hgb O2 Saturation (95.0-98.0) % Sodium (132-148) mmol/l Chloride (98-107) mmol/L Glucose (75-110) mg/dl Lactate (0.7-2.1) mmol/L Vent Mode Mechanical Rate FiO2 % Tidal Volume PEEP Potassium (3.6-5.2) mmol/L Carbon Dioxide (22-30) mmol/L Anion Gap (10-20) BUN (9-20) mg/dL Creatinine (0.8-1.5) mg/dL Est GFR ( Amer) Est GFR (Non-Af Amer) Random Glucose (75-110) mg/dL Lactic Acid (0.7-2.1) mmol/L Calcium (8.6-10.4) mg/dl Phosphorus (2.5-4.5) mg/dL Magnesium (1.6-2.3) mg/dL Total Bilirubin (0.2-1.3) mg/dL AST (17-59) U/L ALT (21-72) U/L Alkaline Phosphatase (38-126) U/L Total Protein (6.3-8.3) g/dL Albumin (3.5-5.0) g/dL Globulin (2.2-3.9) gm/dL Albumin/Globulin Ratio (1.0-2.1) Arterial Blood Potassium (3.6-5.2) mmol/L Blood Type O POSITIVE Antibody Screen Negative Laboratory Results - last 24 hr 03/17/17 03/17/17 03/17/17 12:04 15:50 20:08 WBC RBC Hgb Hct MCV MCH MCHC RDW Plt Count MPV Neut % (Auto) Lymph % (Auto) [place] % (Auto) Eos % (Auto) Baso % (Auto) Neut # Lymph # [place] # Eos # Baso # Neutrophils % (Manual) Band Neutrophils % Lymphocytes % (Manual) Monocytes % (Manual) Toxic Granulation Platelet Estimate Polychromasia Hypochromasia (manual) Anisocytosis (manual) Microcytosis (manual) PT INR APTT Puncture Site Rra A line pCO2 35 30 L pO2 107 H 331 H HCO3 22.5 20.0 L ABG pH 7.39 7.38 ABG Total CO2 22.3 18.6 L ABG O2 Saturation 98.8 H 99.5 H ABG Base Excess -3.1 L -6.3 L ABG Hemoglobin 12.1 ABG Carboxyhemoglobin 1.3 POC ABG HHb (Measured) 0.5 ABG Methemoglobin 1.1 S[place]der Test Na Na ABG Potassium 4.0 A-a O2 Difference 345.0 Respiratory Index 1.0 Hgb O2 Saturation 97.0 Sodium 128.0 L Chloride 101.0 Glucose 115 H Lactate 1.7 Vent Mode Prvc Mechanical Rate 12 FiO2 100.0 Tidal Volume 500 PEEP 5 Potassium Carbon Dioxide Anion Gap BUN Creatinine Est GFR ( Amer) Est GFR (Non-Af Amer) Random Glucose Lactic Acid Calcium Phosphorus Magnesium Total Bilirubin AST ALT Alkaline Phosphatase Total Protein Albumin Globulin Albumin/Globulin Ratio Arterial Blood Potassium 4.0 Blood Type O POSITIVE Antibody Screen Negative 03/17/17 03/17/17 03/17/17 20:14 20:14 20:14 WBC 12.7 H RBC 5.22 Hgb 12.8 Hct 39.9 MCV 76.3 L MCH 24.4 L MCHC 32.0 L RDW 18.0 H Plt Count 313 MPV 7.8 Neut % (Auto) 80.0 H Lymph % (Auto) 9.4 L [place] % (Auto) 9.8 Eos % (Auto) 0.2 Baso % (Auto) 0.6 Neut # 10.1 H Lymph # 1.2 [place] # 1.2 H Eos # 0.0 Baso # 0.1 Neutrophils % (Manual) 53 Band Neutrophils % 19 H* Lymphocytes % (Manual) 19 L Monocytes % (Manual) 9 Toxic Granulation Platelet Estimate Normal Polychromasia Slight Hypochromasia (manual) Slight Anisocytosis (manual) Slight Microcytosis (manual) Slight PT 19.4 H D INR 1.7 D APTT 35 H D Puncture Site pCO2 pO2 HCO3 ABG pH ABG Total CO2 ABG O2 Saturation ABG Base Excess ABG Hemoglobin ABG Carboxyhemoglobin POC ABG HHb (Measured) ABG Methemoglobin Satinder Test ABG Potassium A-a O2 Difference Respiratory Index Hgb O2 Saturation Sodium 127 L Chloride 100 Glucose Lactate Vent Mode Mechanical Rate FiO2 Tidal Volume PEEP Potassium 4.3 Carbon Dioxide 20 L Anion Gap 11 BUN 16 Creatinine 0.9 Est GFR ( Amer) > 60 Est GFR (Non-Af Amer) > 60 Random Glucose 116 H Lactic Acid Calcium 7.6 L Phosphorus 3.1 Magnesium 1.7 Total Bilirubin 3.2 H AST 102 H D ALT 55 Alkaline Phosphatase 154 H D Total Protein 5.9 L Albumin 2.7 L D Globulin 3.2 Albumin/Globulin Ratio 0.8 L Arterial Blood Potassium Blood Type Antibody Screen 03/18/17 03/18/17 03/18/17 03:36 03:36 05:15 WBC 14.7 H RBC 4.81 Hgb 11.8 L Hct 36.7 MCV 76.4 L MCH 24.6 L MCHC 32.2 L RDW 17.7 H Plt Count 295 MPV 8.4 Neut % (Auto) 85.0 H Lymph % (Auto) 5.7 L [place] % (Auto) 7.6 Eos % (Auto) 0.1 Baso % (Auto) 1.6 Neut # 12.5 H Lymph # 0.8 L [place] # 1.1 H Eos # 0.0 Baso # 0.2 Neutrophils % (Manual) 70 Band Neutrophils % 12 H* Lymphocytes % (Manual) 10 L Monocytes % (Manual) 8 Toxic Granulation Present Platelet Estimate Normal Polychromasia Slight Hypochromasia (manual) Anisocytosis (manual) Slight Microcytosis (manual) PT INR APTT Puncture Site [place] pCO2 39 pO2 124 H HCO3 19.2 L ABG pH 7.29 L ABG Total CO2 20.0 L ABG O2 Saturation 99.1 H ABG Base Excess -7.3 L ABG Hemoglobin 12.8 ABG Carboxyhemoglobin 1.7 H POC ABG HHb (Measured) 0.9 ABG Methemoglobin 0.8 [place] Test Na ABG Potassium A-a O2 Difference 184.0 Respiratory Index 1.5 Hgb O2 Saturation 96.6 Sodium 127 L Chloride 104 Glucose Lactate Vent Mode Prvc Mechanical Rate 12 FiO2 50.0 Tidal Volume 500 PEEP 5 Potassium 4.9 Carbon Dioxide 21 L Anion Gap 7 L BUN 17 Creatinine 1.0 Est GFR ( Amer) > 60 Est GFR (Non-Af Amer) > 60 Random Glucose 136 H Lactic Acid Calcium 7.1 L Phosphorus Magnesium Total Bilirubin 2.2 H AST 114 H ALT 55 Alkaline Phosphatase 126 Total Protein 5.2 L Albumin 2.3 L Globulin 2.9 Albumin/Globulin Ratio 0.8 L Arterial Blood Potassium Blood Type Antibody Screen 03/18/17 07:00 WBC RBC Hgb Hct MCV MCH MCHC RDW Plt Count MPV Neut % (Auto) Lymph % (Auto) [place] % (Auto) Eos % (Auto) Baso % (Auto) Neut # Lymph # [place] # Eos # Baso # Neutrophils % (Manual) Band Neutrophils % Lymphocytes % (Manual) Monocytes % (Manual) Toxic Granulation Platelet Estimate Polychromasia Hypochromasia (manual) Anisocytosis (manual) Microcytosis (manual) PT INR APTT Puncture Site pCO2 pO2 HCO3 ABG pH ABG Total CO2 ABG O2 Saturation ABG Base Excess ABG Hemoglobin ABG Carboxyhemoglobin POC ABG HHb (Measured) ABG Methemoglobin Satinder Test ABG Potassium A-a O2 Difference Respiratory Index Hgb O2 Saturation Sodium Chloride Glucose Lactate Vent Mode Mechanical Rate FiO2 Tidal Volume PEEP Potassium Carbon Dioxide Anion Gap BUN Creatinine Est GFR ( Amer) Est GFR (Non-Af Amer) Random Glucose Lactic Acid 1.3 Calcium Phosphorus Magnesium Total Bilirubin AST ALT Alkaline Phosphatase Total Protein Albumin Globulin Albumin/Globulin Ratio Arterial Blood Potassium Blood Type Antibody Screen Critical Care Progress Note - Nutrition Nutrition: Nutrition Category Date Time Status NPO Diet [DIET] Diets 03/16/17 Breakfast Active Attending/Attestation - Attestation I have personally seen and examined this patient.: Yes I have fully participated in the care of the patient.: Yes I have reviewed all pertinent clinical information: Yes Notes (Text): I have seen and examined the patient. Medical records, lab studies, and imaging were reviewed by me and a management plan was formulated on multidisciplinary rounds with resident Dr. Kelly. I agree with their documented assessment and plan. Lightening sedation, will start PS trials. Probable ATN from previous hypotension in OR, Increased LR@200 and starting albumin to promote urine output. Continue Cefepime and Flagyl for intra-abdominal and pulmonary coverage. Critical Care Time 35 minutes. Multi-disciplinary rounds were performed with house staff, nursing, speech therapy, respiratory therapy, pharmacy and nutrition with integrated input from the primary team/attending and other consulting services. The documented time is cumulative and includes review of patient data/exams/labs/chart review and examination of the patient on rounds and throughout the day; time is exclusive of any procedures or teaching time.
--- NOTE | 2017-03-18 12:15 | CP.PCM.PN ---
<Reema Patel - Last Filed: 03/18/17 13:55> Subjective - Date & Time of Evaluation Date of Evaluation: 03/18/17 Time of Evaluation: 10:00 - Subjective Subjective: Heme/Onc Progress Note- Dr. Anu Quiros's Service: Patient seen and examined at bedside this AM. 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 Patient also had liver biopsy collected during procedure. Patient is intubated and sedated. Unable to provide ROS this AM. Objective - Vital Signs/Intake and Output Vital Signs (last 24 hours): Temp Pulse Resp BP Pulse Ox 99.0 F 120 H 17 112/75 95 03/18/17 08:00 03/18/17 09:03 03/18/17 09:03 03/18/17 09:03 03/18/17 09:03 Intake and Output: 03/18/17 03/18/17 06:59 18:59 Intake Total 4361.5 1630.7 Output Total 1075 20 Balance 3286.5 1610.7 - Medications Medications: Current Medications Albumin Human (Albumin Human 25% (12.5 Gm/50 Ml)) 12.5 gm IV Q1 [facility] Stop: 03/18/17 17:01 Last Admin: 03/18/17 11:13 Dose: 12.5 gm Albuterol/Ipratropium (Duoneb 3 Mg/0.5 Mg (3 Ml) Ud) 3 ml INH RQ6 MARC Enoxaparin Sodium (Lovenox) 30 mg SC DAILY [facility] Last Admin: 03/18/17 11:14 Dose: 30 mg Home Med (Patient's Own Drops) 0 drop OU BID [facility] Last Admin: 03/18/17 11:20 Dose: 1 drop Home Med (Patient's Own Drops) 0 drop OU HS [facility] Last Admin: 03/17/17 22:28 Dose: Not Given Metronidazole (Flagyl) 500 mg in 100 mls @ 100 mls/hr IVPB Q8 [facility] Last Admin: 03/18/17 05:19 Dose: 100 mls/hr Cefepime HCl (Maxipime Iv 2 Gm Premix) 2 gm in 100 mls @ 100 mls/hr IVPB Q8H [facility] Stop: 03/21/17 12:01 Last Admin: 03/18/17 11:14 Dose: 100 mls/hr Fentanyl Citrate 2,500 mcg/ (Dextrose) 300 mls @ 21.54 mls/hr IV .[id number] PRN; 2 MCG/KG/HR PRN Reason: Protocol Last Admin: 03/18/17 07:31 Dose: 2.49 mcg/kg/hr, 26.9 mls/hr BUPIVACAINE 0.125%/0.9% NACL (Bupivacaine-Ns 0.125% On-Q [employer]) 600 mls @ 4 mls/ hr IJ ONCE ONE Stop: 03/24/17 01:30 Last Admin: 03/17/17 20:32 Dose: 4 mls/hr Propofol (Diprivan) 1,000 mg in 100 mls @ 2.693 mls/hr IV .Q24H PRN; Protocol; 5 MCG/KG/MIN PRN Reason: TITRATE PER MD ORDER Lactated Ringer's (Lactated Ringer's) 1,000 mls @ 200 mls/hr IV .Q5H MARC Lorazepam (Ativan) 0.5 mg IVP BID [facility] Last Admin: 03/18/17 11:21 Dose: Not Given Ondansetron HCl (Zofran Inj) 4 mg IVP Q4H PRN PRN Reason: Nausea/Vomiting Last Admin: 03/16/17 13:07 Dose: 4 mg Pantoprazole Sodium (Protonix Inj) 40 mg IVP DAILY [facility] Last Admin: 03/18/17 11:15 Dose: 40 mg - Labs Labs: 03/18/17 03:36 03/18/17 03:36 PT 19.4 SECONDS (9.7-12.2) H D 03/17/17 20:14 INR 1.7 D 03/17/17 20:14 APTT 35 SECONDS (21-34) H D 03/17/17 20:14 - Constitutional Appears: No Acute Distress - Head Exam Head Exam: NORMAL INSPECTION - ENT Exam ENT Exam: Mucous Membranes Moist - Respiratory Exam Respiratory Exam: NORMAL BREATHING PATTERN Additional comments: On vent - Cardiovascular Exam Cardiovascular Exam: REGULAR RHYTHM, +S1, +S2 - GI/Abdominal Exam GI & Abdominal Exam: Distended, Soft, Tenderness Additional comments: +colostomy bag with brown stool in place - Neurological Exam Neurological Exam: Altered (sedated) - Skin Skin Exam: Normal Color, Warm Assessment and Plan - Assessment and Plan (Free Text) Assessment: 1.Colon mass intubated and sedated s/p left sigmoidoscopy 03/16/17 s/p left hemicolectomy with colostomy 03/17/17 F/u biopsies from colon, liver, omentum Recommend dedicated CT of chest with IV contrast CEA elevated- 2590 Radiographic appearance concerning for metastatic disease Further recommendations pending results of biopsy 2. Leukocytosis on antibiotics Patient seen during rounds with Dr. Quiros. Recommendations above as per discussion with attending. <Chip Quiros - Last Filed: 03/18/17 21:21> Objective - Vital Signs/Intake and Output Vital Signs (last 24 hours): Temp Pulse Resp BP Pulse Ox 99.0 F 133 H 16 136/78 96 03/18/17 20:00 03/18/17 19:03 03/18/17 19:03 03/18/17 19:03 03/18/17 17:03 Intake and Output: 03/18/17 03/19/17 18:59 06:59 Intake Total 4022.8 326.6 Output Total 320 60 Balance 3702.8 266.6 - Medications Medications: Current Medications Albuterol/Ipratropium (Duoneb 3 Mg/0.5 Mg (3 Ml) Ud) 3 ml INH RQ6 [facility] Enoxaparin Sodium (Lovenox) 30 mg SC DAILY [facility] Last Admin: 03/18/17 11:14 Dose: 30 mg Home Med (Patient's Own Drops) 0 drop OU BID [facility] Last Admin: 03/18/17 18:09 Dose: 1 drop Home Med (Patient's Own Drops) 0 drop OU HS [facility] Last Admin: 03/17/17 22:28 Dose: Not Given Metronidazole (Flagyl) 500 mg in 100 mls @ 100 mls/hr IVPB Q8 [facility] Last Admin: 03/18/17 14:11 Dose: 100 mls/hr Cefepime HCl (Maxipime Iv 2 Gm Premix) 2 gm in 100 mls @ 100 mls/hr IVPB Q8H [facility] Stop: 03/21/17 12:01 Last Admin: 03/18/17 19:52 Dose: 100 mls/hr BUPIVACAINE 0.125%/0.9% NACL (Bupivacaine-Ns 0.125% On-Q [employer]) 600 mls @ 4 mls/ hr IJ ONCE ONE Stop: 03/24/17 01:30 Last Admin: 03/17/17 20:32 Dose: 4 mls/hr Propofol (Diprivan) 1,000 mg in 100 mls @ 2.693 mls/hr IV .Q24H PRN; Protocol; 5 MCG/KG/MIN PRN Reason: TITRATE PER MD ORDER Lactated Ringer's (Lactated Ringer's) 1,000 mls @ 200 mls/hr IV .Q5H [facility] Last Admin: 03/18/17 20:24 Dose: Not Given Fentanyl Citrate 2,500 mcg/ (Dextrose) 250 mls @ 17.95 mls/hr IV .[id number] PRN; 2 MCG/KG/HR PRN Reason: Protocol Last Admin: 03/18/17 18:10 Dose: 3 mcg/kg/hr, 26.92 mls/hr Lorazepam (Ativan) 0.5 mg IVP BID [facility] Last Admin: 03/18/17 18:07 Dose: Not Given Metoprolol Tartrate (Lopressor) 5 mg IVP Q6 [facility] Last Admin: 03/18/17 21:11 Dose: 5 mg Ondansetron HCl (Zofran Inj) 4 mg IVP Q4H PRN PRN Reason: Nausea/Vomiting Last Admin: 03/16/17 13:07 Dose: 4 mg Pantoprazole Sodium (Protonix Inj) 40 mg IVP DAILY [facility] Last Admin: 03/18/17 11:15 Dose: 40 mg - Labs Labs: 03/18/17 03:36 03/18/17 03:36 PT 19.4 SECONDS (9.7-12.2) H D 03/17/17 20:14 INR 1.7 D 03/17/17 20:14 APTT 35 SECONDS (21-34) H D 03/17/17 20:14 Assessment and Plan - Assessment and Plan (Free Text) Assessment: Pt seen and examined, agree with residents note.
--- NOTE | 2017-03-18 17:30 | CP.PCM.PN ---
Subjective - Date & Time of Evaluation Date of Evaluation: 03/18/17 Time of Evaluation: 08:35 - Subjective Subjective: Seen and examined this morning Patient remains intubated post op sedated has poor UOP,s/p bolus fluids monitor UPO s/p Colectomy Objective - Vital Signs/Intake and Output Vital Signs (last 24 hours): Temp Pulse Resp BP Pulse Ox 99.0 F 129 H 15 125/76 97 03/18/17 08:00 03/18/17 16:03 03/18/17 16:03 03/18/17 16:03 03/18/17 16:00 Intake and Output: 03/18/17 03/18/17 06:59 18:59 Intake Total 4361.5 3569.0 Output Total 1075 220 Balance 3286.5 3349.0 - Medications Medications: Current Medications Albuterol/Ipratropium (Duoneb 3 Mg/0.5 Mg (3 Ml) Ud) 3 ml INH RQ6 [facility] Enoxaparin Sodium (Lovenox) 30 mg SC DAILY [facility] Last Admin: 03/18/17 11:14 Dose: 30 mg Home Med (Patient's Own Drops) 0 drop OU BID [facility] Last Admin: 03/18/17 11:20 Dose: 1 drop Home Med (Patient's Own Drops) 0 drop OU HS [facility] Last Admin: 03/17/17 22:28 Dose: Not Given Metronidazole (Flagyl) 500 mg in 100 mls @ 100 mls/hr IVPB Q8 [facility] Last Admin: 03/18/17 05:19 Dose: 100 mls/hr Cefepime HCl (Maxipime Iv 2 Gm Premix) 2 gm in 100 mls @ 100 mls/hr IVPB Q8H [facility] Stop: 03/21/17 12:01 Last Admin: 03/18/17 11:14 Dose: 100 mls/hr BUPIVACAINE 0.125%/0.9% NACL (Bupivacaine-Ns 0.125% On-Q Fixture Maker) 600 mls @ 4 mls/ hr IJ ONCE ONE Stop: 03/24/17 01:30 Last Admin: 03/17/17 20:32 Dose: 4 mls/hr Propofol (Diprivan) 1,000 mg in 100 mls @ 2.693 mls/hr IV .Q24H PRN; Protocol; 5 MCG/KG/MIN PRN Reason: TITRATE PER MD ORDER Lactated Ringer's (Lactated Ringer's) 1,000 mls @ 200 mls/hr IV .Q5H [facility] Fentanyl Citrate 2,500 mcg/ (Dextrose) 250 mls @ 17.95 mls/hr IV .[id number] PRN; 2 MCG/KG/HR PRN Reason: Protocol Lorazepam (Ativan) 0.5 mg IVP BID [facility] Last Admin: 03/18/17 11:21 Dose: Not Given Ondansetron HCl (Zofran Inj) 4 mg IVP Q4H PRN PRN Reason: Nausea/Vomiting Last Admin: 03/16/17 13:07 Dose: 4 mg Pantoprazole Sodium (Protonix Inj) 40 mg IVP DAILY [facility] Last Admin: 03/18/17 11:15 Dose: 40 mg - Labs Labs: 03/18/17 03:36 03/18/17 03:36 PT 19.4 SECONDS (9.7-12.2) H D 03/17/17 20:14 INR 1.7 D 03/17/17 20:14 APTT 35 SECONDS (21-34) H D 03/17/17 20:14 - Constitutional Appears: No Acute Distress, Chronically Ill - Head Exam Head Exam: ATRAUMATIC. absent: NORMAL INSPECTION (intubated) - Eye Exam Eye Exam: Normal appearance - ENT Exam ENT Exam: Mucous Membranes Moist - Neck Exam Neck Exam: Full ROM - GI/Abdominal Exam GI & Abdominal Exam: Distended (s/p colostomy and colon resection), Hypoactive Bowel Sounds - Extremities Exam Extremities Exam: Normal Capillary Refill - Back Exam Back Exam: NORMAL INSPECTION - Neurological Exam Neurological Exam: absent: Awake (sedated) - Psychiatric Exam Psychiatric exam: absent: Normal Affect - Skin Skin Exam: Dry Assessment and Plan - Assessment and Plan (Free Text) Assessment: This is a 62 years old male came for coffee ground vomiting and constipation. CT abdomen showed Obstructing colon mass. Has liver and lung mass suspicious for malignancy.s/p sigmoidoscopy and biopsy 03/16/17 and surgery colectomy and colostomy on 03/17/17 Has leukocytosis with bands on antibiotics Remains intubated with low UPO Plan: 1.Colon mass with obstruction/Likely metastatic colon cancer Surgery consult Dr Steinberg s/p surgery d/w Dr Steinberg Ex lap with L hemicolectomy and colostomy. Takedown of splenic flexure. Lysis of adhesions. Omentectomy. Scar revision. Liver biopsy. GI consult DR Esparza s/p sigmoidoscopy and biopsy follow biopsy report Patient remains Intubated follow up senior net architect recommendation 2. Poor urine out put Monitor out put on fluids,follow createnine 3.Leukocytosis with bands,r/o sepsis d/w Dr Allison and started on Cefepime continue flagyl and cefepime blood culture is negative for 3days d/w Dr allison 4.DVT prophylaxis-SCDs GI prophylaxis-Protonix 5.Liver and lung mass likely metastatic ca Dr dumont/oncology consult 6.Anxiety-seen by psychiatrist
[2017-03-18] MEDS: Fentanyl Citrate 2,500 MCG in Dextrose 5% In Water 200 ML IV PRN (18:10)
[2017-03-18] MEDS ORDERED: Metoprolol 1 mg/ml Inj IVP SCH (20:49)
[2017-03-18] MEDS: Metoprolol 1 mg/ml Inj IVP SCH (21:11)
--- NOTE | 2017-03-18 21:59 | CP.PCM.PN ---
Subjective - Date & Time of Evaluation Date of Evaluation: 03/18/17 Time of Evaluation: 05:00 - Subjective Subjective: dictated Objective - Vital Signs/Intake and Output Vital Signs (last 24 hours): Temp Pulse Resp BP Pulse Ox 99.0 F 133 H 16 136/78 96 03/18/17 20:00 03/18/17 19:03 03/18/17 19:03 03/18/17 19:03 03/18/17 17:03 Intake and Output: 03/18/17 03/19/17 18:59 06:59 Intake Total 4022.8 326.6 Output Total 320 60 Balance 3702.8 266.6 - Medications Medications: Current Medications Albuterol/Ipratropium (Duoneb 3 Mg/0.5 Mg (3 Ml) Ud) 3 ml INH RQ6 [facility] Enoxaparin Sodium (Lovenox) 30 mg SC DAILY [facility] Last Admin: 03/18/17 11:14 Dose: 30 mg Home Med (Patient's Own Drops) 0 drop OU BID [facility] Last Admin: 03/18/17 18:09 Dose: 1 drop Home Med (Patient's Own Drops) 0 drop OU HS [facility] Last Admin: 03/17/17 22:28 Dose: Not Given Metronidazole (Flagyl) 500 mg in 100 mls @ 100 mls/hr IVPB Q8 [facility] Last Admin: 03/18/17 14:11 Dose: 100 mls/hr Cefepime HCl (Maxipime Iv 2 Gm Premix) 2 gm in 100 mls @ 100 mls/hr IVPB Q8H [facility] Stop: 03/21/17 12:01 Last Admin: 03/18/17 19:52 Dose: 100 mls/hr BUPIVACAINE 0.125%/0.9% NACL (Bupivacaine-Ns 0.125% On-Q Waiter/Waitress Tourist Class) 600 mls @ 4 mls/ hr IJ ONCE ONE Stop: 03/24/17 01:30 Last Admin: 03/17/17 20:32 Dose: 4 mls/hr Propofol (Diprivan) 1,000 mg in 100 mls @ 2.693 mls/hr IV .Q24H PRN; Protocol; 5 MCG/KG/MIN PRN Reason: TITRATE PER MD ORDER Lactated Ringer's (Lactated Ringer's) 1,000 mls @ 200 mls/hr IV .Q5H [facility] Last Admin: 03/18/17 20:24 Dose: Not Given Fentanyl Citrate 2,500 mcg/ (Dextrose) 250 mls @ 17.95 mls/hr IV .[id number] PRN; 2 MCG/KG/HR PRN Reason: Protocol Last Admin: 03/18/17 18:10 Dose: 3 mcg/kg/hr, 26.92 mls/hr Lorazepam (Ativan) 0.5 mg IVP BID [facility] Last Admin: 03/18/17 18:07 Dose: Not Given Metoprolol Tartrate (Lopressor) 5 mg IVP Q6 [facility] Last Admin: 03/18/17 21:11 Dose: 5 mg Ondansetron HCl (Zofran Inj) 4 mg IVP Q4H PRN PRN Reason: Nausea/Vomiting Last Admin: 03/16/17 13:07 Dose: 4 mg Pantoprazole Sodium (Protonix Inj) 40 mg IVP DAILY [facility] Last Admin: 03/18/17 11:15 Dose: 40 mg - Labs Labs: 03/18/17 03:36 03/18/17 03:36 PT 19.4 SECONDS (9.7-12.2) H D 03/17/17 20:14 INR 1.7 D 03/17/17 20:14 APTT 35 SECONDS (21-34) H D 03/17/17 20:14
[2017-03-18] MEDS: TRAVATAN OU SCH (23:48)
[2017-03-19] MEDS: Metoprolol 1 mg/ml Inj IVP SCH ×4 (00:41→18:12)
[2017-03-19] MEDS: Lactated Ringer's 1,000 ML IV SCH ×5 (01:30→20:22)
--- NOTE | 2017-03-19 02:14 | PN ---
DATE: SUBJECTIVE: Patient was seen today. He remains in the ICU, intubated. PHYSICAL EXAMINATION: VITAL SIGNS: T-max was 99, heart rate of 133. Respirations, on the vent, he is on 50% FiO2. GENERAL: He had the surgery done and remains intubated. He is status post left hemicolectomy. NECK: Supple. LUNGS: Decreased breath sounds bilaterally. HEART: S1, S2 tachycardic. ABDOMEN: Remains distended and prominent with surgical dressing as well as the MARIBELL drain was present. EXTREMITIES: Have Venodyne boots. LABORATORY DATA: White count is 14.7 today, hemoglobin 11.8, hematocrit 36.7, platelet count is 295. His bands still remain 12. Urine culture is negative. Blood cultures have been negative. His BUN is 17, creatinine is 1.0, total bilirubin is 2.2. Liver enzymes, AST is 114 and lactic acid was 1.3. ASSESSMENT: He is on Maxipime as well as Flagyl, and he probably has malignancy, waiting for the path report. At this time, patient remains critical in the Intensive Care Unit. Cadence Hutchins MD
[2017-03-19] MEDS: Albuterol-Ipratrop 3 mg / 0.5 (3 ml) UD INH SCH ×4 (02:57→20:36)
[2017-03-19] MEDS: Fentanyl Citrate 2,500 MCG in Dextrose 5% In Water 200 ML IV PRN ×3 (03:56→20:30)
[2017-03-19] MEDS: metroNIDAZOLE IV 500 mg/100 ml 500 MG/100 ML BAG IVPB SCH ×3 (06:36→22:02)
[2017-03-19] MEDS: Cefepime IV 2 gm in Dextrose 2 GM/100 ML BAG IVPB SCH ×3 (06:38→20:31)
[2017-03-19 06:52] LABS: BASO % 0.3 % (0.0-2.0); EOS % 0.3 % (0.0-4.0); HEMOGLOBIN 8.5 g/dL (12.0-18.0); LYMPH % 7.6 % (20.0-40.0); MEAN CORPUSCULAR HEMOGLOBIN 24.9 pg (27.0-31.0); MEAN CORPUSCULAR HGB CONC 32.3 g/dL (33.0-37.0); MEAN PLATELET VOLUME 8.5 fL (7.2-11.7); MONO # 1.9 K/uL (0.0-0.8); MONO % 14.5 % (0.0-10.0); NEUT # 9.9 K/uL (1.8-7.0); NEUT % 77.3 % (50.0-75.0); PLATELET COUNT 210 K/uL (130-400); RBC 3.41 Mil/uL (4.40-5.90); RED CELL DISTRIBUTION WIDTH 18.5 % (11.5-14.5); WHITE BLOOD COUNT 12.8 K/uL (4.8-10.8)
[2017-03-19 06:55] LABS: ARTERIAL BLOOD GAS HEMOGLOBIN 9.1 g/dL (11.7-17.4); ARTERIAL BLOOD GAS O2 SAT 99.4 % (95-98); ARTERIAL BLOOD GAS PCO2 44 mm/Hg (35-45); ARTERIAL BLOOD GAS PH 7.27 (7.35-7.45); ARTERIAL BLOOD GAS PO2 142 mm/Hg (80-100); ARTERIAL BLOOD GAS TCO2 21.6 mmol/L (22-28)
[2017-03-19 07:07] LABS: ALB/GLOB RATIO 1.1 (1.0-2.1); ALT/SGPT 49 U/L (21-72); AST/SGOT 136 U/L (17-59); BLOOD UREA NITROGEN 23 mg/dL (9-20); CALCIUM 7.7 mg/dl (8.6-10.4); GFR AFRICAN-AMERICAN > 60; GFR NON-AFRICAN AMERICAN 56; MAGNESIUM 1.9 mg/dL (1.6-2.3)
--- NOTE | 2017-03-19 09:17 | CP.PCM.PN ---
Subjective - Date & Time of Evaluation Date of Evaluation: 03/19/17 Time of Evaluation: 09:00 - Subjective Subjective: Seen and examined this morning Remains intubated,post op respiratory failure Objective - Vital Signs/Intake and Output Vital Signs (last 24 hours): Temp Pulse Resp BP Pulse Ox 99.3 F 107 H 12 99/69 L 95 03/19/17 08:00 03/19/17 08:03 03/19/17 08:03 03/19/17 08:03 03/19/17 08:03 Intake and Output: 03/19/17 03/19/17 06:59 18:59 Intake Total 3020.8 461.8 Output Total 570 245 Balance 2450.8 216.8 - Medications Medications: Current Medications Albuterol/Ipratropium (Duoneb 3 Mg/0.5 Mg (3 Ml) Ud) 3 ml INH RQ6 [facility] Last Admin: 03/19/17 02:57 Dose: 3 ml Enoxaparin Sodium (Lovenox) 30 mg SC DAILY [facility] Last Admin: 03/18/17 11:14 Dose: 30 mg Home Med (Patient's Own Drops) 0 drop OU BID [facility] Last Admin: 03/18/17 18:09 Dose: 1 drop Home Med (Patient's Own Drops) 0 drop OU HS [facility] Last Admin: 03/18/17 23:48 Dose: 1 drop Metronidazole (Flagyl) 500 mg in 100 mls @ 100 mls/hr IVPB Q8 [facility] Last Admin: 03/19/17 06:36 Dose: 100 mls/hr Cefepime HCl (Maxipime Iv 2 Gm Premix) 2 gm in 100 mls @ 100 mls/hr IVPB Q8H [facility] Stop: 03/21/17 12:01 Last Admin: 03/19/17 06:38 Dose: 100 mls/hr BUPIVACAINE 0.125%/0.9% NACL (Bupivacaine-Ns 0.125% On-Q Assistive Technology Trainer) 600 mls @ 4 mls/ hr IJ ONCE ONE Stop: 03/24/17 01:30 Last Admin: 03/17/17 20:32 Dose: 4 mls/hr Propofol (Diprivan) 1,000 mg in 100 mls @ 2.693 mls/hr IV .Q24H PRN; Protocol; 5 MCG/KG/MIN PRN Reason: TITRATE PER MD ORDER Lactated Ringer's (Lactated Ringer's) 1,000 mls @ 200 mls/hr IV .Q5H [facility] Last Admin: 03/19/17 06:30 Dose: 200 mls/hr Fentanyl Citrate 2,500 mcg/ (Dextrose) 250 mls @ 17.95 mls/hr IV .[id number] PRN; 2 MCG/KG/HR PRN Reason: Protocol Last Admin: 03/19/17 03:56 Dose: 3 mcg/kg/hr, 26.92 mls/hr Lorazepam (Ativan) 0.5 mg IVP BID [facility] Last Admin: 03/18/17 18:07 Dose: Not Given Metoprolol Tartrate (Lopressor) 5 mg IVP Q6 [facility] Last Admin: 03/19/17 06:38 Dose: 5 mg Ondansetron HCl (Zofran Inj) 4 mg IVP Q4H PRN PRN Reason: Nausea/Vomiting Last Admin: 03/16/17 13:07 Dose: 4 mg Pantoprazole Sodium (Protonix Inj) 40 mg IVP DAILY [facility] Last Admin: 03/18/17 11:15 Dose: 40 mg - Labs Labs: 03/19/17 06:39 03/19/17 06:39 PT 19.4 SECONDS (9.7-12.2) H D 03/17/17 20:14 INR 1.7 D 03/17/17 20:14 APTT 35 SECONDS (21-34) H D 03/17/17 20:14 - Constitutional Appears: No Acute Distress - Head Exam Head Exam: ATRAUMATIC. absent: NORMAL INSPECTION (intubated) - Eye Exam Eye Exam: Normal appearance - ENT Exam ENT Exam: Mucous Membranes Moist - Neck Exam Neck Exam: Full ROM - Respiratory Exam Respiratory Exam: Clear to Ausculation Bilateral - Cardiovascular Exam Cardiovascular Exam: REGULAR RHYTHM - GI/Abdominal Exam GI & Abdominal Exam: Distended, Hypoactive Bowel Sounds, Normal Bowel Sounds - Extremities Exam Extremities Exam: absent: Full ROM (sedated) - Back Exam Back Exam: NORMAL INSPECTION - Neurological Exam Neurological Exam: absent: Awake (sedated on MV) - Psychiatric Exam Psychiatric exam: absent: Normal Mood (sedated) - Skin Skin Exam: Dry Assessment and Plan - Assessment and Plan (Free Text) Assessment: Nando is a 62 years old male came for coffee ground vomiting and constipation. CT abdomen showed Obstructing colon mass. Has liver and lung mass suspicious for malignancy.s/p sigmoidoscopy and biopsy 03/16/17 and surgery colectomy and colostomy on 03/17/17 Has leukocytosis with bands on antibiotics. Now developed RLL pneumonia.Post op vent dependent resp failure Plan: 1.Post operative ventilator dependent respiratory failure sedated on MV,urine out is improving d/w Catalyst Manufacturing Operator on cefepime and flagyl .vanco added 2. Right lower lobe pneumonia continue vent support,antibiotics,duoneb 3. Colon mass with obstruction/Likely metastatic colon cancer Surgery consult Dr Steinberg s/p surgery d/w Dr Steinberg Ex lap with L hemicolectomy and colostomy. Takedown of splenic flexure. Lysis of adhesions. Omentectomy. Scar revision. Liver biopsy. GI consult DR Esparza s/p sigmoidoscopy and biopsy follow biopsy report Patient remains Intubated follow up tilesetter recommendation 4. Poor urine out put Monitor out put on fluids,follow createnine 5.Anemimonitor hemoglobin type and screen and follow hemoglobin 6.Leukocytosis with bands,r/o sepsis continue flagyl , cefepime and venco follow repeat blood culture and trach culture blood culture 03/15 is negative d/w Dr allison 7.DVT prophylaxis-SCDs GI prophylaxis-Protonix 8.Liver and lung mass likely metastatic ca Dr dumont/oncology consult 9.Anxiety-seen by psychiatrist
[2017-03-19 09:24] LABS: BANDS 25 % (0-2); LYMPHOCYTE 3 % (20-40); METAMYELOCYTE 1 % (0-0); MONOCYTE 11 % (0-10); NEUTROPHIL 60 % (50-75); TOTAL CELLS COUNTED 100
[2017-03-19 09:26] LABS: ANISOCYTOSIS SLIGHT; HYPOCHROMIC SLIGHT; MICROCYTOSIS SLIGHT; PLATELET ESTIMATE NORMAL (NORMAL)
[2017-03-19 09:27] LABS: LARGE PLATELETS PRESENT; TOXIC GRANULATION PRESENT
[2017-03-19 09:28] LABS: TARGET CELLS SLIGHT
--- NOTE | 2017-03-19 09:42 | RAD ---
HISTORY: Follow up intubated patient COMPARISON: 03/18/2017 patchy opacity at right base, grossly unchanged. No left-sided infiltrate. FINDINGS: LUNGS: Patchy opacity at right base, unchanged. No left-sided infiltrate. PLEURA: Small right pleural effusion. No left pleural effusion. No pneumothorax. CARDIOVASCULAR: ET tube and NG tube are unchanged. OSSEOUS STRUCTURES: No significant abnormalities. VISUALIZED UPPER ABDOMEN: Normal. OTHER FINDINGS: None. IMPRESSION: Patchy right basilar opacity. Small right pleural effusion. Lines and tubes unchanged.
[2017-03-19] MEDS: Enoxaparin 30 mg Syringe SC SCH (10:05)
[2017-03-19] MEDS: COMBIGAN OU SCH ×2 (10:05→18:12)
[2017-03-19] MEDS: Vancomycin 1 gm/NS 200 ml 1 GM/200 ML BAG IVPB SCH ×2 (12:37→23:48)
--- NOTE | 2017-03-19 13:24 | CP.PCM.PN ---
<Enid Bello - Last Filed: 03/19/17 13:22> Subjective - Date & Time of Evaluation Date of Evaluation: 03/19/17 Time of Evaluation: 13:22 - Subjective Subjective: Surgery Pt s&e. Intubated and sedated. TUbe feed started. Objective - Vital Signs/Intake and Output Vital Signs (last 24 hours): Temp Pulse Resp BP Pulse Ox 99.8 F H 107 H 21 108/69 88 L 03/19/17 12:00 03/19/17 12:03 03/19/17 12:03 03/19/17 12:03 03/19/17 12:03 Intake and Output: 03/19/17 03/19/17 06:59 18:59 Intake Total 3020.8 1412.6 Output Total 570 330 Balance 2450.8 1082.6 - Medications Medications: Current Medications Albuterol/Ipratropium (Duoneb 3 Mg/0.5 Mg (3 Ml) Ud) 3 ml INH RQ6 [facility] Last Admin: 03/19/17 08:55 Dose: 3 ml Enoxaparin Sodium (Lovenox) 30 mg SC DAILY [facility] Last Admin: 03/19/17 10:05 Dose: 30 mg Home Med (Patient's Own Drops) 0 drop OU BID [facility] Last Admin: 03/19/17 10:05 Dose: 1 drop Home Med (Patient's Own Drops) 0 drop OU HS [facility] Last Admin: 03/18/17 23:48 Dose: 1 drop Metronidazole (Flagyl) 500 mg in 100 mls @ 100 mls/hr IVPB Q8 [facility] Last Admin: 03/19/17 06:36 Dose: 100 mls/hr Cefepime HCl (Maxipime Iv 2 Gm Premix) 2 gm in 100 mls @ 100 mls/hr IVPB Q8H [facility] Stop: 03/21/17 12:01 Last Admin: 03/19/17 11:42 Dose: 100 mls/hr BUPIVACAINE 0.125%/0.9% NACL (Bupivacaine-Ns 0.125% On-Q Justice Court Judge) 600 mls @ 4 mls/ hr IJ ONCE ONE Stop: 03/24/17 01:30 Last Admin: 03/17/17 20:32 Dose: 4 mls/hr Propofol (Diprivan) 1,000 mg in 100 mls @ 2.693 mls/hr IV .Q24H PRN; Protocol; 5 MCG/KG/MIN PRN Reason: TITRATE PER MD ORDER Fentanyl Citrate 2,500 mcg/ (Dextrose) 250 mls @ 17.95 mls/hr IV .[id number] PRN; 2 MCG/KG/HR PRN Reason: Protocol Last Admin: 03/19/17 11:41 Dose: 1 mcg/kg/hr, 8.97 mls/hr Lactated Ringer's (Lactated Ringer's) 1,000 mls @ 100 mls/hr IV .Q10H [facility] Last Admin: 03/19/17 10:55 Dose: 100 mls/hr Vancomycin/Sodium Chloride (Vancomycin 1 Gm/Ns 200 Ml) 1 gm in 200 mls @ 166.7 mls/hr IVPB Q12H [facility] Stop: 03/24/17 12:01 Last Admin: 03/19/17 12:37 Dose: 166.7 mls/hr Lorazepam (Ativan) 0.5 mg IVP BID [facility] Last Admin: 03/19/17 09:22 Dose: Not Given Metoprolol Tartrate (Lopressor) 5 mg IVP Q6 [facility] Last Admin: 03/19/17 12:41 Dose: 5 mg Ondansetron HCl (Zofran Inj) 4 mg IVP Q4H PRN PRN Reason: Nausea/Vomiting Last Admin: 03/16/17 13:07 Dose: 4 mg Pantoprazole Sodium (Protonix Inj) 40 mg IVP DAILY [facility] Last Admin: 03/19/17 10:05 Dose: 40 mg - Labs Labs: 03/19/17 06:39 03/19/17 06:39 PT 19.4 SECONDS (9.7-12.2) H D 03/17/17 20:14 INR 1.7 D 03/17/17 20:14 APTT 35 SECONDS (21-34) H D 03/17/17 20:14 - Constitutional Appears: In Acute Distress - Head Exam Head Exam: ATRAUMATIC, NORMAL INSPECTION, NORMOCEPHALIC - Eye Exam Eye Exam: EOMI, Normal appearance, PERRL Pupil Exam: NORMAL ACCOMODATION, PERRL - ENT Exam ENT Exam: Mucous Membranes Moist, Normal Exam - Neck Exam Neck Exam: Full ROM, Normal Inspection. absent: Lymphadenopathy - Respiratory Exam Respiratory Exam: Clear to Ausculation Bilateral, Respiratory Distress Additional comments: Intubated. - Cardiovascular Exam Cardiovascular Exam: REGULAR RHYTHM, +S1, +S2. absent: Murmur - GI/Abdominal Exam GI & Abdominal Exam: Distended, Firm, Normal Bowel Sounds. absent: Guarding, Rigid, Tenderness Additional comments: Dressing C/D/I. Stoma has gas and brown liquid - Extremities Exam Extremities Exam: Normal Inspection. absent: Tenderness - Back Exam Back Exam: NORMAL INSPECTION - Neurological Exam Neurological Exam: absent: Alert, Awake, Oriented x3 - Skin Skin Exam: Dry, Intact, Normal Color, Warm Assessment and Plan - Assessment and Plan (Free Text) Assessment: POD 2 s/p L hemicolectomy w colostomy Colostomy fecal output -Tube feed started -ICU management -Monitor VS/I&O -medical management Will DW Dr. Steinberg <Trace Steinberg - Last Filed: 03/19/17 21:50> Objective - Vital Signs/Intake and Output Vital Signs (last 24 hours): Temp Pulse Resp BP Pulse Ox 100.2 F H 97 H 13 111/64 96 03/19/17 20:00 03/19/17 21:00 03/19/17 21:00 03/19/17 21:03 03/19/17 21:00 Intake and Output: 03/19/17 03/20/17 18:59 06:59 Intake Total 2090.6 589 Output Total 620 320 Balance 1470.6 269 - Medications Medications: Current Medications Albuterol/Ipratropium (Duoneb 3 Mg/0.5 Mg (3 Ml) Ud) 3 ml INH RQ6 [facility] Last Admin: 03/19/17 20:36 Dose: 3 ml Enoxaparin Sodium (Lovenox) 30 mg SC DAILY [facility] Last Admin: 03/19/17 10:05 Dose: 30 mg Home Med (Patient's Own Drops) 0 drop OU BID [facility] Last Admin: 03/19/17 18:12 Dose: 1 drop Home Med (Patient's Own Drops) 0 drop OU HS [facility] Last Admin: 03/18/17 23:48 Dose: 1 drop Metronidazole (Flagyl) 500 mg in 100 mls @ 100 mls/hr IVPB Q8 [facility] Last Admin: 03/19/17 14:29 Dose: 100 mls/hr Cefepime HCl (Maxipime Iv 2 Gm Premix) 2 gm in 100 mls @ 100 mls/hr IVPB Q8H [facility] Stop: 03/21/17 12:01 Last Admin: 03/19/17 20:31 Dose: 100 mls/hr BUPIVACAINE 0.125%/0.9% NACL (Bupivacaine-Ns 0.125% On-Q Justice Court Judge) 600 mls @ 4 mls/ hr IJ ONCE ONE Stop: 03/24/17 01:30 Last Admin: 03/17/17 20:32 Dose: 4 mls/hr Propofol (Diprivan) 1,000 mg in 100 mls @ 2.693 mls/hr IV .Q24H PRN; Protocol; 5 MCG/KG/MIN PRN Reason: TITRATE PER MD ORDER Fentanyl Citrate 2,500 mcg/ (Dextrose) 250 mls @ 17.95 mls/hr IV .[id number] PRN; 2 MCG/KG/HR PRN Reason: Protocol Last Admin: 03/19/17 20:30 Dose: 1 mcg/kg/hr, 8.97 mls/hr Lactated Ringer's (Lactated Ringer's) 1,000 mls @ 100 mls/hr IV .Q10H [facility] Last Admin: 03/19/17 20:22 Dose: Not Given Vancomycin/Sodium Chloride (Vancomycin 1 Gm/Ns 200 Ml) 1 gm in 200 mls @ 166.7 mls/hr IVPB Q12H [facility] Stop: 03/24/17 12:01 Last Admin: 03/19/17 12:37 Dose: 166.7 mls/hr Lorazepam (Ativan) 0.5 mg IVP BID [facility] Last Admin: 03/19/17 17:59 Dose: Not Given Metoprolol Tartrate (Lopressor) 5 mg IVP Q6 [facility] Last Admin: 03/19/17 18:12 Dose: 5 mg Ondansetron HCl (Zofran Inj) 4 mg IVP Q4H PRN PRN Reason: Nausea/Vomiting Last Admin: 03/16/17 13:07 Dose: 4 mg Pantoprazole Sodium (Protonix Inj) 40 mg IVP DAILY [facility] Last Admin: 03/19/17 10:05 Dose: 40 mg - Labs Labs: 03/19/17 06:39 03/19/17 06:39 PT 19.4 SECONDS (9.7-12.2) H D 03/17/17 20:14 INR 1.7 D 03/17/17 20:14 APTT 35 SECONDS (21-34) H D 03/17/17 20:14 Attending/Attestation - Attestation I have personally seen and examined this patient.: Yes I have fully participated in the care of the patient.: Yes I have reviewed all pertinent clinical information, including history, physical exam and plan: Yes Notes (Text): Pt was seen and examined at bedside Agree with above note and assessment Pt is intubated and sedated c/w ICU mx Plan d.w primary team in detail
--- NOTE | 2017-03-19 14:22 | CP.CCUPN ---
CCU Subjective - Physician Review Events Since Last Encounter (Free Text): 03/19/17 14:19 sedated on vent. CCU Objective - Vital Signs / Intake & Output Vital Signs (Last 4 hours): Vital Signs Temp Pulse Resp BP Pulse Ox 03/19/17 12:03 107 H 21 108/69 88 L 03/19/17 12:00 99.8 F H 109 H 20 89 L 03/19/17 11:03 109 H 20 121/71 03/19/17 11:00 111 H 17 95 Intake and Output (Last 8hrs): Intake & Output 03/18/17 03/19/17 03/19/17 22:59 06:59 14:59 Intake Total 1931.2 2097.2 1412.6 Output Total 305 425 330 Balance 1626.2 1672.2 1082.6 Weight 204 lb 2.369 oz Intake: IV 250 250 Intake, IV Amount 1931.2 1847.2 1162.6 Left Hand 907.6 215.2 134.6 left EJ 100 left hand #2 907.6 1600 1000 upper midabdomen on-Q 16 32 28 pump Output: Gastric Amount 100 Nares 100 Drainage 60 Right Lower Abdomen 60 Urine 285 395 170 Urethral (Nieto) 285 395 170 Stool 20 30 - Physical Exam Head: Positive for: Atraumatic, Normocephalic Pupils: Positive for: PERRL Extroacular Muscles: Positive for: EOMI Conjunctiva: Positive for: Normal Mouth: Positive for: Moist Mucous Membranes Neck: Positive for: Normal Range of Motion Respiratory/Chest: Positive for: Clear to Auscultation, Accessory Muscle Use Cardiovascular: Positive for: Regular Rate and Rhythm Abdomen: Positive for: Normal Bowel Sounds. Negative for: Tenderness, Distention, Peritoneal Signs Lower Extremity: Positive for: Other (tvp) Psychiatric: Positive for: Alert, Oriented x 3 - Medications Active Medications: Active Medications Generic Name Dose Route Start Last Admin Trade Name Freq PRN Reason Stop Dose Admin Albuterol/Ipratropium 3 ml 03/18/17 14:00 03/19/17 13:55 Duoneb 3 Mg/0.5 Mg (3 Ml) Ud INH 3 ml RQ6 MARC Administration Enoxaparin Sodium 30 mg 03/18/17 10:00 03/19/17 10:05 Lovenox SC 30 mg DAILY MARC Administration Home Med 0 drop 03/15/17 21:15 03/19/17 10:05 Patient's Own Drops OU 1 drop BID MARC Administration Home Med 0 drop 03/15/17 22:00 03/18/17 23:48 Patient's Own Drops OU 1 drop HS MARC Administration Metronidazole 500 mg in 100 mls @ 100 mls/hr 03/15/17 14:00 03/19/17 06:36 Flagyl IVPB 100 mls/hr Q8 MARC Administration Cefepime HCl 2 gm in 100 mls @ 100 mls/hr 03/16/17 12:00 03/19/17 11:42 Maxipime Iv 2 Gm Premix IVPB 03/21/17 12:01 100 mls/hr Q8H MARC Administration BUPIVACAINE 0.125%/0.9% NACL 600 mls @ 4 mls/hr 03/17/17 19:31 03/17/17 20:32 Bupivacaine-Ns 0.125% On-Q Drug Counselor IJ 03/24/17 01:30 4 mls/hr ONCE ONE Administration Propofol 1,000 mg in 100 mls @ 2.693 mls/hr 03/17/17 19:54 Diprivan IV .Q24H PRN TITRATE PER MD ORDER Protocol 5 MCG/KG/MIN Fentanyl Citrate 2,500 mcg/ 250 mls @ 17.95 mls/hr 03/18/17 16:45 03/19/17 11 :41 Dextrose IV 1 mcg/kg/hr .[id number] PRN 8.97 mls/hr Protocol Administration 2 MCG/KG/HR Lactated Ringer's 1,000 mls @ 100 mls/hr 03/19/17 10:04 03/19/17 10:55 Lactated Ringer's IV 100 mls/hr .Q10H MARC Administration Vancomycin/Sodium Chloride 1 gm in 200 mls @ 166.7 mls/hr 03/19/17 12:00 12:37 Vancomycin 1 Gm/Ns 200 Ml IVPB 03/24/17 12:01 166.7 mls/hr Q12H MARC Administration Lorazepam 0.5 mg 03/16/17 18:00 03/19/17 09:22 Ativan IVP Not Given BID MARC Metoprolol Tartrate 5 mg 03/18/17 21:00 03/19/17 12:41 Lopressor IVP 5 mg Q6 MARC Administration Ondansetron HCl 4 mg 03/15/17 08:52 03/16/17 13:07 Zofran Inj IVP 4 mg Q4H PRN Administration Nausea/Vomiting Pantoprazole Sodium 40 mg 03/17/17 10:00 03/19/17 10:05 Protonix Inj IVP 40 mg DAILY MARC Administration - Patient Studies Lab Studies: Microbiology Studies 03/15/17 09:44 Blood Culture - Preliminary Blood NO GROWTH AFTER 4 DAYS 03/15/17 09:44 Blood Culture - Preliminary Blood NO GROWTH AFTER 4 DAYS 03/17/17 11:58 Urine Culture - Final Urine,Clean Catch No Growth (<1,000 CFU/ML) Lab Studies 03/19/17 03/19/17 03/19/17 Range/Units 06:39 06:39 05:25 WBC 12.8 H (4.8-10.8) K/uL RBC 3.41 L (4.40-5.90) Mil/uL Hgb 8.5 L D (12.0-18.0) g/dL Hct 26.3 L (35.0-51.0) % MCV 77.0 L (80.0-94.0) fL MCH 24.9 L (27.0-31.0) pg MCHC 32.3 L (33.0-37.0) g/dL RDW 18.5 H (11.5-14.5) % Plt Count 210 (130-400) K/uL MPV 8.5 (7.2-11.7) fL Neut % (Auto) 77.3 H (50.0-75.0) % Lymph % (Auto) 7.6 L (20.0-40.0) % [place] % (Auto) 14.5 H (0.0-10.0) % Eos % (Auto) 0.3 (0.0-4.0) % Baso % (Auto) 0.3 (0.0-2.0) % Neut # 9.9 H (1.8-7.0) K/uL Lymph # 1.0 (1.0-4.3) K/uL [place] # 1.9 H (0.0-0.8) K/uL Eos # 0.0 (0.0-0.7) K/uL Baso # 0.0 (0.0-0.2) K/uL Neutrophils % (Manual) 60 (50-75) % Band Neutrophils % 25 H* (0-2) % Lymphocytes % (Manual) 3 L (20-40) % Monocytes % (Manual) 11 H (0-10) % Metamyelocytes % 1 H (0-0) % Toxic Granulation Present Platelet Estimate Normal (NORMAL) Large Platelets Present Hypochromasia (manual) Slight Anisocytosis (manual) Slight Microcytosis (manual) Slight Target Cells Slight Puncture Site A-line pCO2 44 (35-45) mm/Hg pO2 142 H (80-100) mm/Hg HCO3 20.0 L (21-28) mmol/L ABG pH 7.27 L (7.35-7.45) ABG Total CO2 21.6 L (22-28) mmol/L ABG O2 Saturation 99.4 H (95-98) % ABG Base Excess -6.4 L (-2.0-3.0) mmol/L ABG Hemoglobin 9.1 L (11.7-17.4) g/dL ABG Carboxyhemoglobin 1.2 (0.5-1.5) % POC ABG HHb (Measured) 0.6 (0.0-5.0) % ABG Methemoglobin 1.2 (0.0-3.0) % Satinder Test Na A-a O2 Difference 160.0 mm/Hg Respiratory Index 1.1 Hgb O2 Saturation 96.9 (95.0-98.0) % Vent Mode Prvc Mechanical Rate 12 FiO2 50.0 % Tidal Volume 500 PEEP 5 Sodium 132 (132-148) mmol/L Potassium 4.7 (3.6-5.2) mmol/L Chloride 101 (98-107) mmol/L Carbon Dioxide 24 (22-30) mmol/L Anion Gap 12 (10-20) BUN 23 H (9-20) mg/dL Creatinine 1.3 (0.8-1.5) mg/dL Est GFR ( Amer) > 60 Est GFR (Non-Af Amer) 56 Random Glucose 64 L (75-110) mg/dL Calcium 7.7 L (8.6-10.4) mg/dl Phosphorus 3.1 (2.5-4.5) mg/dL Magnesium 1.9 (1.6-2.3) mg/dL Total Bilirubin 1.4 H (0.2-1.3) mg/dL AST 136 H (17-59) U/L ALT 49 (21-72) U/L Alkaline Phosphatase 114 (38-126) U/L Total Protein 5.8 L (6.3-8.3) g/dL Albumin 3.0 L D (3.5-5.0) g/dL Globulin 2.7 (2.2-3.9) gm/dL Albumin/Globulin Ratio 1.1 (1.0-2.1) Laboratory Results - last 24 hr 03/19/17 03/19/17 03/19/17 05:25 06:39 06:39 WBC 12.8 H RBC 3.41 L Hgb 8.5 L D Hct 26.3 L MCV 77.0 L MCH 24.9 L MCHC 32.3 L RDW 18.5 H Plt Count 210 MPV 8.5 Neut % (Auto) 77.3 H Lymph % (Auto) 7.6 L [place] % (Auto) 14.5 H Eos % (Auto) 0.3 Baso % (Auto) 0.3 Neut # 9.9 H Lymph # 1.0 [place] # 1.9 H Eos # 0.0 Baso # 0.0 Neutrophils % (Manual) 60 Band Neutrophils % 25 H* Lymphocytes % (Manual) 3 L Monocytes % (Manual) 11 H Metamyelocytes % 1 H Toxic Granulation Present Platelet Estimate Normal Large Platelets Present Hypochromasia (manual) Slight Anisocytosis (manual) Slight Microcytosis (manual) Slight Target Cells Slight Puncture Site A-line pCO2 44 pO2 142 H HCO3 20.0 L ABG pH 7.27 L ABG Total CO2 21.6 L ABG O2 Saturation 99.4 H ABG Base Excess -6.4 L ABG Hemoglobin 9.1 L ABG Carboxyhemoglobin 1.2 POC ABG HHb (Measured) 0.6 ABG Methemoglobin 1.2 Satinder Test Na A-a O2 Difference 160.0 Respiratory Index 1.1 Hgb O2 Saturation 96.9 Vent Mode Prvc Mechanical Rate 12 FiO2 50.0 Tidal Volume 500 PEEP 5 Sodium 132 Potassium 4.7 Chloride 101 Carbon Dioxide 24 Anion Gap 12 BUN 23 H Creatinine 1.3 Est GFR ( Amer) > 60 Est GFR (Non-Af Amer) 56 Random Glucose 64 L Calcium 7.7 L Phosphorus 3.1 Magnesium 1.9 Total Bilirubin 1.4 H AST 136 H ALT 49 Alkaline Phosphatase 114 Total Protein 5.8 L Albumin 3.0 L D Globulin 2.7 Albumin/Globulin Ratio 1.1 EKG/Cardiology Studies: Cardiology / EKG Studies 03/18/17 18:34 EKG [ELECTROCARDIOGRAM] Stat Comment: Mode Of Transportation: Reason For Exam: tachy Review of Systems - Review of Systems Systems not reviewed;Unavailable: Intubated Critical Care Progress Note - Nutrition Nutrition: Nutrition Category Date Time Status NPO Diet [DIET] Diets 03/16/17 Breakfast Active Assessment/Plan (1) Metastatic colon cancer to liver Assessment and plan: Neuro: Sedated with fentanyl drip, daily sedation vacation Pulm: Postoperative respiratory failure, on vent. Patient now developing a right lower lobe pneumonia. CV: Hemodynamically stable. Lopressor IV every 6 hours for sinus tachycardia. Hem: Anemia of chronic disease Renal: Decreasing fluids, LR@100. Urine output still oliguric. Endo: No acute issues GI: Nothing by mouth, starting tube feeds, Jevity at 20. MARIBELL drain draining serosanguineous fluid. ID: Sepsis from new right lower lobe pneumonia, possible VAP. Empiric coverage for possible intra-abdominal process. Continue cefepime and Flagyl, adding vancomycin. DVT proph - Lovenox GI proph - Protonix nieto for strict I/O's during acute illness Code status - full code Critical Care Time spent 35 minutes Multi-disciplinary rounds were performed with house staff, nursing, speech therapy, respiratory therapy, pharmacy and nutrition with integrated input from the primary team/attending and other consulting services. The documented time is cumulative and includes review of patient data/exams/labs/chart review and examination of the patient on rounds and throughout the day; time is exclusive of any procedures or teaching time. Current Visit: Yes Status: Acute
--- NOTE | 2017-03-19 17:30 | CP.PCM.PN ---
<Cadence Hutchins - Last Filed: 03/19/17 17:30> Subjective - Date & Time of Evaluation Date of Evaluation: 03/19/17 Time of Evaluation: 03:35 - Subjective Subjective: dictated Objective - Vital Signs/Intake and Output Vital Signs (last 24 hours): Temp Pulse Resp BP Pulse Ox 100.4 F H 96 H 25 H 78/28 L 99 03/19/17 16:00 03/19/17 16:04 03/19/17 16:04 03/19/17 16:04 03/19/17 16:04 Intake and Output: 03/19/17 03/19/17 06:59 18:59 Intake Total 3020.8 1864.6 Output Total 570 520 Balance 2450.8 1344.6 - Medications Medications: Current Medications Albuterol/Ipratropium (Duoneb 3 Mg/0.5 Mg (3 Ml) Ud) 3 ml INH RQ6 [facility] Last Admin: 03/19/17 13:55 Dose: 3 ml Enoxaparin Sodium (Lovenox) 30 mg SC DAILY [facility] Last Admin: 03/19/17 10:05 Dose: 30 mg Home Med (Patient's Own Drops) 0 drop OU BID [facility] Last Admin: 03/19/17 10:05 Dose: 1 drop Home Med (Patient's Own Drops) 0 drop OU HS [facility] Last Admin: 03/18/17 23:48 Dose: 1 drop Metronidazole (Flagyl) 500 mg in 100 mls @ 100 mls/hr IVPB Q8 [facility] Last Admin: 03/19/17 14:29 Dose: 100 mls/hr Cefepime HCl (Maxipime Iv 2 Gm Premix) 2 gm in 100 mls @ 100 mls/hr IVPB Q8H [facility] Stop: 03/21/17 12:01 Last Admin: 03/19/17 11:42 Dose: 100 mls/hr BUPIVACAINE 0.125%/0.9% NACL (Bupivacaine-Ns 0.125% On-Q Elevator Operator Service) 600 mls @ 4 mls/ hr IJ ONCE ONE Stop: 03/24/17 01:30 Last Admin: 03/17/17 20:32 Dose: 4 mls/hr Propofol (Diprivan) 1,000 mg in 100 mls @ 2.693 mls/hr IV .Q24H PRN; Protocol; 5 MCG/KG/MIN PRN Reason: TITRATE PER MD ORDER Fentanyl Citrate 2,500 mcg/ (Dextrose) 250 mls @ 17.95 mls/hr IV .[id number] PRN; 2 MCG/KG/HR PRN Reason: Protocol Last Admin: 03/19/17 11:41 Dose: 1 mcg/kg/hr, 8.97 mls/hr Lactated Ringer's (Lactated Ringer's) 1,000 mls @ 100 mls/hr IV .Q10H [facility] Last Admin: 03/19/17 10:55 Dose: 100 mls/hr Vancomycin/Sodium Chloride (Vancomycin 1 Gm/Ns 200 Ml) 1 gm in 200 mls @ 166.7 mls/hr IVPB Q12H [facility] Stop: 03/24/17 12:01 Last Admin: 03/19/17 12:37 Dose: 166.7 mls/hr Lorazepam (Ativan) 0.5 mg IVP BID [facility] Last Admin: 03/19/17 09:22 Dose: Not Given Metoprolol Tartrate (Lopressor) 5 mg IVP Q6 [facility] Last Admin: 03/19/17 12:41 Dose: 5 mg Ondansetron HCl (Zofran Inj) 4 mg IVP Q4H PRN PRN Reason: Nausea/Vomiting Last Admin: 03/16/17 13:07 Dose: 4 mg Pantoprazole Sodium (Protonix Inj) 40 mg IVP DAILY [facility] Last Admin: 03/19/17 10:05 Dose: 40 mg - Labs Labs: 03/19/17 06:39 03/19/17 06:39 PT 19.4 SECONDS (9.7-12.2) H D 03/17/17 20:14 INR 1.7 D 03/17/17 20:14 APTT 35 SECONDS (21-34) H D 03/17/17 20:14 <Hernan Duque - Last Filed: 04/06/17 19:17> Objective - Vital Signs/Intake and Output Vital Signs (last 24 hours): Temp Pulse Resp BP Pulse Ox 100.4 F H 108 H 16 116/63 95 03/19/17 16:00 03/19/17 18:03 03/19/17 18:03 03/19/17 18:03 03/19/17 18:00 Intake and Output: 03/19/17 03/20/17 18:59 06:59 Intake Total 2090.6 Output Total 620 Balance 1470.6 - Medications Medications: Current Medications Albuterol/Ipratropium (Duoneb 3 Mg/0.5 Mg (3 Ml) Ud) 3 ml INH RQ6 [facility] Last Admin: 03/19/17 13:55 Dose: 3 ml Enoxaparin Sodium (Lovenox) 30 mg SC DAILY [facility] Last Admin: 03/19/17 10:05 Dose: 30 mg Home Med (Patient's Own Drops) 0 drop OU BID [facility] Last Admin: 03/19/17 18:12 Dose: 1 drop Home Med (Patient's Own Drops) 0 drop OU HS [facility] Last Admin: 03/18/17 23:48 Dose: 1 drop Metronidazole (Flagyl) 500 mg in 100 mls @ 100 mls/hr IVPB Q8 [facility] Last Admin: 03/19/17 14:29 Dose: 100 mls/hr Cefepime HCl (Maxipime Iv 2 Gm Premix) 2 gm in 100 mls @ 100 mls/hr IVPB Q8H [facility] Stop: 03/21/17 12:01 Last Admin: 03/19/17 11:42 Dose: 100 mls/hr BUPIVACAINE 0.125%/0.9% NACL (Bupivacaine-Ns 0.125% On-Q Elevator Operator Service) 600 mls @ 4 mls/ hr IJ ONCE ONE Stop: 03/24/17 01:30 Last Admin: 03/17/17 20:32 Dose: 4 mls/hr Propofol (Diprivan) 1,000 mg in 100 mls @ 2.693 mls/hr IV .Q24H PRN; Protocol; 5 MCG/KG/MIN PRN Reason: TITRATE PER MD ORDER Fentanyl Citrate 2,500 mcg/ (Dextrose) 250 mls @ 17.95 mls/hr IV .[id number] PRN; 2 MCG/KG/HR PRN Reason: Protocol Last Admin: 03/19/17 11:41 Dose: 1 mcg/kg/hr, 8.97 mls/hr Lactated Ringer's (Lactated Ringer's) 1,000 mls @ 100 mls/hr IV .Q10H [facility] Last Admin: 03/19/17 18:36 Dose: 100 mls/hr Vancomycin/Sodium Chloride (Vancomycin 1 Gm/Ns 200 Ml) 1 gm in 200 mls @ 166.7 mls/hr IVPB Q12H [facility] Stop: 03/24/17 12:01 Last Admin: 03/19/17 12:37 Dose: 166.7 mls/hr Lorazepam (Ativan) 0.5 mg IVP BID [facility] Last Admin: 03/19/17 17:59 Dose: Not Given Metoprolol Tartrate (Lopressor) 5 mg IVP Q6 [facility] Last Admin: 03/19/17 18:12 Dose: 5 mg Ondansetron HCl (Zofran Inj) 4 mg IVP Q4H PRN PRN Reason: Nausea/Vomiting Last Admin: 03/16/17 13:07 Dose: 4 mg Pantoprazole Sodium (Protonix Inj) 40 mg IVP DAILY [facility] Last Admin: 03/19/17 10:05 Dose: 40 mg - Labs Labs: 03/19/17 06:39 03/19/17 06:39 PT 19.4 SECONDS (9.7-12.2) H D 03/17/17 20:14 INR 1.7 D 03/17/17 20:14 APTT 35 SECONDS (21-34) H D 03/17/17 20:14 Attending/Attestation - Attestation I have personally seen and examined this patient.: Yes I have fully participated in the care of the patient.: Yes I have reviewed all pertinent clinical information, including history, physical exam and plan: Yes Notes (Text): Seen and examined I agree with the documentation of the assessment and the plan
[2017-03-19] MEDS ORDERED: Metoprolol 1 mg/ml Inj IVP SCH ×2 (20:44)
[2017-03-19] MEDS: TRAVATAN OU SCH (22:06)
--- NOTE | 2017-03-19 22:46 | PN ---
DATE: SUBJECTIVE: Patient remains intubated. PHYSICAL EXAMINATION: GENERAL: He remains sedated and intubated. VITAL SIGNS: He has a temperature of 100.4 today, heart rate of 103, blood pressure 102/57, respirations are 20. NECK: Supple. LUNGS: Bilateral rhonchi. HEART: S1, S2, tachycardic. ABDOMEN: Remains protuberant and prominent. He had a surgery, abdomen. EXTREMITIES: Have Venodyne boots on. LABORATORY DATA: His white count is 12.8, hemoglobin is 8.5. Hemoglobin dropped from 11.8 to 8.5. I hope it needs to be monitored. He may be actively bleeding. He is postop. Hematocrit is 26.3, bands are 25%. ABG: pH 7.27, CO2 is 20. There was an x-ray done and chest x-ray shows patchy right basilar opacity, small right pleural effusion. Lines and tubes are unchanged, patchy opacity. ASSESSMENT AND PLAN: Since he has bandemia, we have added vancomycin 1 g daily and he remains on cefepime 2 g q. 8 and on Flagyl, which I will renew at this time and the other thing is since his hemoglobin is dropping, it needs to be monitored and if he continues to have bandemia, I think we should do a CAT scan as he is postop. So, at this time, we will continue with vancomycin, Maxipime, and Flagyl. HE IS ALLERGIC TO PENICILLIN, hence this is the best choice at this time and to repeat the labs in the morning. Cadence Hutchins MD
[2017-03-20] MEDS: Albuterol-Ipratrop 3 mg / 0.5 (3 ml) UD INH SCH ×4 (02:37→19:53)
[2017-03-20] MEDS: Cefepime IV 2 gm in Dextrose 2 GM/100 ML BAG IVPB SCH ×3 (04:00→20:12)
[2017-03-20 06:00] LABS: ARTERIAL BLOOD GAS HCO3 19.6 mmol/L (21-28); ARTERIAL BLOOD GAS O2 SAT 99.3 % (95-98); ARTERIAL BLOOD GAS PCO2 43 mm/Hg (35-45); ARTERIAL BLOOD GAS PH 7.27 (7.35-7.45); ARTERIAL BLOOD GAS PO2 127 mm/Hg (80-100)
--- NOTE | 2017-03-20 06:04 | OP ---
PROCEDURE DATE: 03/17/2017 PREOPERATIVE DIAGNOSES: 1. Obstructing colon cancer. 2. Intestinal obstruction. 3. Liver metastasis. 4. Severe abdominal pain. 5. Status post sigmoidoscopy and biopsy 6. Possible postoperative adhesion due to the previous exploratory laparotomy. POSTOPERATIVE DIAGNOSES: 1. Obstructing colon cancer. 2. Intestinal obstruction. 3. Liver metastasis. 4. Severe abdominal pain. 5. Status post sigmoidoscopy and biopsy. 6. Extensive postoperative adhesion due to the previous exploratory laparotomy. PROCEDURES DONE: 1. Exploratory laparotomy. 2. Extensive lysis of adhesions of the previous postoperative adhesions. 3. Left hemicolectomy. 4. End colostomy. 5. Take down of the splenic flexure. 6. Omentectomy 7. Revision of the scar, 25 x 2 cm size. 8. Liver biopsy. 9. Bilateral On-Q pain catheter pump placement for postoperative analgesia. SURGEON: Trace Steinberg MD ANESTHESIA: General endotracheal tube anesthesia. ESTIMATED BLOOD LOSS: Around 200 mL. DRAIN: The 19-Azerbaijani Vin drain was placed. COMPLICATIONS: None. INTRAOPERATIVE FINDINGS: The patient had severe intestinal obstruction of the colon due to sigmoid colon mass. The colon mass was completely adhered to the lateral pelvic wall as well as underlying structures. The patient also had liver metastasis. There was no peritoneal seeding. The patient also had extensive postoperative adhesion due to the previous exploratory laparotomy. DESCRIPTION OF PROCEDURE: On intraoperative steps, this is a 62-year-old male, who was diagnosed with colonic obstruction with large sigmoid colon circumferential mass. Patient underwent sigmoidoscopy with biopsy and patient was consented for exploratory laparotomy and lysis of adhesions with colon resection with possible ostomy. Patient was brought to the OR, placed supine on the operating table. After induction of the anesthesia, the NG tube as well as Fox catheter was placed. An elliptical incision was made surrounding the midline incision of approximately 25 x 2 cm size and the scar was revised, and it was sent off the table for the pathology. The peritoneal cavity was entered. The patient had extensive postoperative adhesions. First, extensive lysis of adhesion was done, and the small bowel was completely eviscerated, and now the Bookwalter was applied. The left colon that was stuck to the lateral pelvic wall was mobilized. The colon was resected at the rectosigmoid junction. The dissection was carried down proximally up to the splenic flexure. Now, the splenic flexure was mobilized completely. The omentum that was attached to the mass was also removed, and omentectomy was done, and it was sent off the table for the pathology. Now, another part of the colon was also resected proximally. Now the circular incision was made in the lateral abdominal wall. The end of the colon was brought through to create the stoma. Now the liver biopsy was done due to the stellate liver and approximately 3 x 2 cm area of liver was resected for the biopsy and hemostasis was achieved. Now the On-Q pain catheter pump was placed and the catheter was connected to the pain pump. The irrigation of the peritoneal cavity was done. The 19-Azerbaijani Vin drain was placed. Proper hemostasis was achieved. The count of the instrument and gauze was correct. Now the peritoneal cavity was closed in two layer; the fascia with #1 PDS continuous suture as well as 0 Prolene interrupted sutures, and skin with susana, and dry sterile dressing was applied. Patient tolerated the procedure well. Count of the instrument and gauze was correct. There was no apparent complication. The patient kept intubated and sent to the ICU for further care. The drain was secured to the skin and the On-Q pain catheter was also secured to the skin. Trace Steinberg MD [facility]
[2017-03-20] MEDS: metroNIDAZOLE IV 500 mg/100 ml 500 MG/100 ML BAG IVPB SCH ×3 (06:06→21:13)
[2017-03-20] MEDS: Lactated Ringer's 1,000 ML IV SCH (06:07)
[2017-03-20] MEDS: Metoprolol 1 mg/ml Inj IVP SCH ×2 (06:13)
[2017-03-20 06:46] LABS: BASO % 0.3 % (0.0-2.0); EOS # 0.2 K/uL (0.0-0.7); EOS % 1.3 % (0.0-4.0); LYMPH # 0.8 K/uL (1.0-4.3); LYMPH % 6.6 % (20.0-40.0); MEAN CORPUSCULAR HEMOGLOBIN 24.5 pg (27.0-31.0); MEAN CORPUSCULAR HGB CONC 31.8 g/dL (33.0-37.0); MEAN PLATELET VOLUME 8.8 fL (7.2-11.7); MONO # 1.4 K/uL (0.0-0.8); MONO % 11.2 % (0.0-10.0); NEUT # 10.2 K/uL (1.8-7.0); NEUT % 80.6 % (50.0-75.0); NRBC % 0.2 % (0.0-2.0); PLATELET COUNT 195 K/uL (130-400); RBC 3.25 Mil/uL (4.40-5.90); RED CELL DISTRIBUTION WIDTH 18.4 % (11.5-14.5); WHITE BLOOD COUNT 12.7 K/uL (4.8-10.8)
[2017-03-20 07:16] LABS: ALB/GLOB RATIO 0.9 (1.0-2.1); ALBUMIN 2.6 g/dL (3.5-5.0); CALCIUM 7.7 mg/dl (8.6-10.4); MAGNESIUM 2.1 mg/dL (1.6-2.3)
[2017-03-20 07:18] LABS: CALCIUM 7.8 mg/dl (8.6-10.4)
--- NOTE | 2017-03-20 08:12 | CP.PCM.PN ---
Subjective - Date & Time of Evaluation Date of Evaluation: 03/20/17 Time of Evaluation: 08:12 - Subjective Subjective: Patient was seen and examined Patient remains on MV support on minimal sedation Minimal response to pain.Open his eyes but not following command. d/w Gum Machine Operator . Check him off sedation. Do CT head Urine out put improved.His creatinine went up this morning to1.6 Objective - Vital Signs/Intake and Output Vital Signs (last 24 hours): Temp Pulse Resp BP Pulse Ox 98.9 F 108 H 18 134/83 99 03/20/17 04:00 03/20/17 06:00 03/20/17 06:00 03/20/17 06:10 03/20/17 06:00 Intake and Output: 03/20/17 03/20/17 06:59 18:59 Intake Total 1706 Output Total 805 Balance 901 - Medications Medications: Current Medications Albuterol/Ipratropium (Duoneb 3 Mg/0.5 Mg (3 Ml) Ud) 3 ml INH RQ6 [facility] Last Admin: 03/20/17 08:04 Dose: 3 ml Enoxaparin Sodium (Lovenox) 30 mg SC DAILY [facility] Last Admin: 03/19/17 10:05 Dose: 30 mg Home Med (Patient's Own Drops) 0 drop OU BID [facility] Last Admin: 03/19/17 18:12 Dose: 1 drop Home Med (Patient's Own Drops) 0 drop OU HS [facility] Last Admin: 03/19/17 22:06 Dose: 1 drop Metronidazole (Flagyl) 500 mg in 100 mls @ 100 mls/hr IVPB Q8 [facility] Last Admin: 03/20/17 06:06 Dose: 100 mls/hr Cefepime HCl (Maxipime Iv 2 Gm Premix) 2 gm in 100 mls @ 100 mls/hr IVPB Q8H [facility] Stop: 03/21/17 12:01 Last Admin: 03/20/17 04:00 Dose: 100 mls/hr BUPIVACAINE 0.125%/0.9% NACL (Bupivacaine-Ns 0.125% On-Q Paving And Surfacing Labourer) 600 mls @ 4 mls/ hr IJ ONCE ONE Stop: 03/24/17 01:30 Last Admin: 03/17/17 20:32 Dose: 4 mls/hr Propofol (Diprivan) 1,000 mg in 100 mls @ 2.693 mls/hr IV .Q24H PRN; Protocol; 5 MCG/KG/MIN PRN Reason: TITRATE PER MD ORDER Fentanyl Citrate 2,500 mcg/ (Dextrose) 250 mls @ 17.95 mls/hr IV .[id number] PRN; 2 MCG/KG/HR PRN Reason: Protocol Last Admin: 03/19/17 20:30 Dose: 1 mcg/kg/hr, 8.97 mls/hr Lactated Ringer's (Lactated Ringer's) 1,000 mls @ 100 mls/hr IV .Q10H [facility] Last Admin: 03/20/17 06:07 Dose: 100 mls/hr Vancomycin/Sodium Chloride (Vancomycin 1 Gm/Ns 200 Ml) 1 gm in 200 mls @ 166.7 mls/hr IVPB Q12H [facility] Stop: 03/24/17 12:01 Last Admin: 03/19/17 23:48 Dose: 166.7 mls/hr Lorazepam (Ativan) 0.5 mg IVP BID [facility] Last Admin: 03/19/17 17:59 Dose: Not Given Metoprolol Tartrate (Lopressor) 5 mg IVP Q6 [facility] Last Admin: 03/20/17 06:13 Dose: 5 mg Ondansetron HCl (Zofran Inj) 4 mg IVP Q4H PRN PRN Reason: Nausea/Vomiting Last Admin: 03/16/17 13:07 Dose: 4 mg Pantoprazole Sodium (Protonix Inj) 40 mg IVP DAILY [facility] Last Admin: 03/19/17 10:05 Dose: 40 mg - Labs Labs: 03/20/17 06:38 03/20/17 06:40 PT 19.4 SECONDS (9.7-12.2) H D 03/17/17 20:14 INR 1.7 D 03/17/17 20:14 APTT 35 SECONDS (21-34) H D 03/17/17 20:14 - Constitutional Appears: No Acute Distress - Head Exam Head Exam: ATRAUMATIC. absent: NORMAL INSPECTION (orally intubated) - Eye Exam Eye Exam: Normal appearance - ENT Exam ENT Exam: Normal Oropharynx - Neck Exam Neck Exam: absent: Full ROM (intubated) - Respiratory Exam Respiratory Exam: Rales, NORMAL BREATHING PATTERN - Cardiovascular Exam Cardiovascular Exam: REGULAR RHYTHM - GI/Abdominal Exam GI & Abdominal Exam: Distended (s/p surgery,colostomy), Normal Bowel Sounds - Extremities Exam Extremities Exam: Pedal Edema. absent: Normal Inspection (edematous hands) - Neurological Exam Neurological Exam: absent: Awake (sedated) Assessment and Plan - Assessment and Plan (Free Text) Assessment: This is a 62 years old male came for coffee ground vomiting and constipation. CT abdomen showed Obstructing colon mass. Has liver and lung mass suspicious for malignancy.s/p sigmoidoscopy and biopsy 03/16/17 . Surgery colectomy and colostomy on 03/17/17 Has leukocytosis with bands on antibiotics. He developed RLL pneumonia.Post op vent dependent resp failure. Today his creatinine went up to 1.6 Plan: T 1.Post operative ventilator dependent respiratory failure sedated on MV,urine out is improving d/w Gum Machine Operator on cefepime 2gram q8h and flagyl .we will continue as recommended by ID disussed with Dr Allison about elevated creatinine and RLL infiltrate Vancomycin discontinued and started on Tigecyclin We will do CT abd pelvis with oral contrast and without IV contrast cultures -blood 03/15 and 03/19 no growth follow trach culture Todays chext x ray with RLL infiltrate 2. Right lower lobe pneumonia continue vent support and follow affirmative action specialist for weaning,antibiotics,duoneb 3. Colon mass with obstruction/Likely metastatic colon cancer Surgery consult Dr Steinberg s/p surgery Ex lap with L hemicolectomy and colostomy. Takedown of splenic flexure. Lysis of adhesions. Omentectomy. Scar revision. Liver biopsy. GI consult DR Esparza s/p sigmoidoscopy and biopsy follow biopsy report Patient remains Intubated,todays chext x ray with RLL infiltrate follow up affirmative action specialist recommendation 4. Acute renal failure continue his fluids,vanco stopped urine out put better Monitor out put on fluids,follow createnine 5.Anemia monitor hemoglobin type and screen and follow hemoglobin 6.Leukocytosis with bands,r/o sepsis continue flagyl , cefepime and Tigecycline follow repeat blood culture and trach culture blood culture 03/15 and 03/19 is negative d/w Dr allison 7.DVT prophylaxis-SCDs GI prophylaxis-Protonix 8.Liver and lung mass likely metastatic ca Dr dumont/oncology consult 9.Anxiety-seen by psychiatrist
--- NOTE | 2017-03-20 08:54 | RAD ---
HISTORY: Pneumonia/resp failure COMPARISON: 03/19/2017 FINDINGS: LUNGS: Extensive right-sided pulmonary infiltrate, essentially unchanged from prior examination. No definite left-sided infiltrate. PLEURA: No significant pleural effusion identified, no pneumothorax apparent. CARDIOVASCULAR: ETT and NG tube unchanged. Normal heart size. Prominent right hilum may reflect adenopathy or mass. Follow-up advised. OSSEOUS STRUCTURES: No significant abnormalities. VISUALIZED UPPER ABDOMEN: Normal. OTHER FINDINGS: None. IMPRESSION: Extensive right-sided pulmonary infiltrate. Prominent right hilum. Followup PE advised to evaluate for possible mass or adenopathy. Lines and tubes unchanged
[2017-03-20] MEDS: Enoxaparin 30 mg Syringe SC SCH (09:29)
[2017-03-20] MEDS: COMBIGAN OU SCH ×2 (09:29→18:03)
--- NOTE | 2017-03-20 09:43 | CP.PCM.PN ---
<SusieDrew foster Justice - Last Filed: 03/20/17 12:43> Subjective - Date & Time of Evaluation Date of Evaluation: 03/20/17 Time of Evaluation: 09:43 - Subjective Subjective: General Surgery: Dr Steinberg Pt seen and examined in ICU. Remains sedated (minimal) and on vent. Pt is not arousable. Minimal response to painful stimuli. Abdomen no longer distended. Ostomy with output. HgB stable from yesterdays drop. Pt w/ mets to liver and lungs. Possible degree of cirrhosis may be slowing down sedative metabolism, prolonging effects. d/w intensiviist and primary, plan for CT head Objective - Vital Signs/Intake and Output Vital Signs (last 24 hours): Temp Pulse Resp BP Pulse Ox 98.5 F 92 H 13 115/67 98 03/20/17 08:00 03/20/17 09:02 03/20/17 09:02 03/20/17 09:03 03/20/17 09:02 Intake and Output: 03/20/17 03/20/17 06:59 18:59 Intake Total 1706 381 Output Total 805 125 Balance 901 256 - Medications Medications: Current Medications Albuterol/Ipratropium (Duoneb 3 Mg/0.5 Mg (3 Ml) Ud) 3 ml INH RQ6 [facility] Last Admin: 03/20/17 08:04 Dose: 3 ml Enoxaparin Sodium (Lovenox) 30 mg SC DAILY [facility] Last Admin: 03/20/17 09:29 Dose: 30 mg Home Med (Patient's Own Drops) 0 drop OU BID [facility] Last Admin: 03/20/17 09:29 Dose: 1 drop Home Med (Patient's Own Drops) 0 drop OU HS [facility] Last Admin: 03/19/17 22:06 Dose: 1 drop Metronidazole (Flagyl) 500 mg in 100 mls @ 100 mls/hr IVPB Q8 [facility] Last Admin: 03/20/17 06:06 Dose: 100 mls/hr Cefepime HCl (Maxipime Iv 2 Gm Premix) 2 gm in 100 mls @ 100 mls/hr IVPB Q8H [facility] Stop: 03/21/17 12:01 Last Admin: 03/20/17 04:00 Dose: 100 mls/hr BUPIVACAINE 0.125%/0.9% NACL (Bupivacaine-Ns 0.125% On-Q Community Development Manager) 600 mls @ 4 mls/ hr IJ ONCE ONE Stop: 03/24/17 01:30 Last Admin: 03/17/17 20:32 Dose: 4 mls/hr Propofol (Diprivan) 1,000 mg in 100 mls @ 2.693 mls/hr IV .Q24H PRN; Protocol; 5 MCG/KG/MIN PRN Reason: TITRATE PER MD ORDER Fentanyl Citrate 2,500 mcg/ (Dextrose) 250 mls @ 17.95 mls/hr IV .[id number] PRN; 2 MCG/KG/HR PRN Reason: Protocol Last Admin: 03/19/17 20:30 Dose: 1 mcg/kg/hr, 8.97 mls/hr Lactated Ringer's (Lactated Ringer's) 1,000 mls @ 100 mls/hr IV .Q10H [facility] Last Admin: 03/20/17 06:07 Dose: 100 mls/hr Tigecycline 100 mg/ Sodium (Chloride) 100 mls @ 100 mls/hr IVPB ONCE ONE Stop: 03/20/17 09:31 Tigecycline 50 mg/ Dextrose 100 mls @ 100 mls/hr IVPB Q12H [facility] Ondansetron HCl (Zofran Inj) 4 mg IVP Q4H PRN PRN Reason: Nausea/Vomiting Last Admin: 03/16/17 13:07 Dose: 4 mg Pantoprazole Sodium (Protonix Inj) 40 mg IVP DAILY [facility] Last Admin: 03/20/17 09:28 Dose: 40 mg - Labs Labs: 03/20/17 06:38 03/20/17 06:40 PT 19.4 SECONDS (9.7-12.2) H D 03/17/17 20:14 INR 1.7 D 03/17/17 20:14 APTT 35 SECONDS (21-34) H D 03/17/17 20:14 - Constitutional Appears: No Acute Distress, Chronically Ill - Respiratory Exam Respiratory Exam: absent: Accessory Muscle Use, Respiratory Distress - Cardiovascular Exam Cardiovascular Exam: absent: Tachycardia - GI/Abdominal Exam GI & Abdominal Exam: Soft, Hypoactive Bowel Sounds. absent: Distended, Firm - Neurological Exam Neurological Exam: absent: Alert, Awake - Skin Skin Exam: Normal Color Assessment and Plan - Assessment and Plan (Free Text) Assessment: 62M with stage IV colon cancer s/p colectomy for obstructing mass Plan: cont tube feeds cont mgmt per ICU rec CT head, wean off sedation cont iv abx for presumed RUL pneumonia possible 2/2 aspiration surgically, pt will recover from ex-lap however long-term prognosis is poor given metastases d/w Dr Maryan Richards, PGY3 <Trace Steinberg B - Last Filed: 03/26/17 15:11> Objective - Vital Signs/Intake and Output Vital Signs (last 24 hours): Temp Pulse Resp BP Pulse Ox 97.6 F 88 29 H 143/87 98 03/26/17 04:00 03/26/17 07:02 03/26/17 07:02 03/26/17 10:40 03/26/17 07:00 Intake and Output: 03/26/17 03/26/17 06:59 18:59 Intake Total 1386 104 Output Total 1370 Balance 16 104 - Medications Medications: Current Medications Albuterol/Ipratropium (Duoneb 3 Mg/0.5 Mg (3 Ml) Ud) 3 ml INH RQ6 [facility] Last Admin: 03/26/17 14:36 Dose: 3 ml Benzocaine/Menthol (Cepacol Sore Throat) 1 michael MT Q4 PRN PRN Reason: Sore Throat Last Admin: 03/24/17 09:18 Dose: 1 michael Home Med (Patient's Own Drops) 0 drop OU BID [facility] Last Admin: 03/26/17 10:40 Dose: 1 drop Home Med (Patient's Own Drops) 0 drop OU HS [facility] Last Admin: 03/26/17 00:24 Dose: 1 drop Metronidazole (Flagyl) 500 mg in 100 mls @ 100 mls/hr IVPB Q8 [facility] Last Admin: 03/26/17 06:05 Dose: 100 mls/hr BUPIVACAINE 0.125%/0.9% NACL (Bupivacaine-Ns 0.125% On-Q Community Development Manager) 600 mls @ 4 mls/ hr IJ ONCE ONE Stop: 03/27/17 15:29 Last Admin: 03/21/17 12:17 Dose: 4 mls/hr Cefepime HCl (Maxipime Iv 2 Gm Premix) 2 gm in 100 mls @ 100 mls/hr IVPB Q8H [facility] Stop: 03/26/17 20:01 Last Admin: 03/26/17 03:24 Dose: 100 mls/hr Vancomycin/Sodium Chloride (Vancomycin 1 Gm/Ns 200 Ml) 1 gm in 200 mls @ 133.333 mls/hr IVPB Q24H [facility] Stop: 03/29/17 09:01 Last Admin: 03/26/17 10:39 Dose: 133.333 mls/hr Dextrose/Sodium Chloride (Dextrose 5%/0.9% Ns 1000 Ml) 1,000 mls @ 42 mls/hr IV .[id number] [facility] Last Admin: 03/26/17 10:39 Dose: 42 mls/hr Losartan Potassium (Cozaar) 25 mg PO DAILY [facility] Last Admin: 03/26/17 10:40 Dose: 25 mg Metoprolol Tartrate (Lopressor) 25 mg PO BID [facility] Last Admin: 03/26/17 10:40 Dose: 25 mg Ondansetron HCl (Zofran Inj) 4 mg IVP Q4H PRN PRN Reason: Nausea/Vomiting Last Admin: 03/16/17 13:07 Dose: 4 mg Pantoprazole Sodium (Protonix Inj) 40 mg IVP DAILY [facility] Last Admin: 03/26/17 10:40 Dose: 40 mg - Labs Labs: 03/26/17 06:11 03/26/17 06:11 PT 19.4 SECONDS (9.7-12.2) H D 03/17/17 20:14 INR 1.7 D 03/17/17 20:14 APTT 35 SECONDS (21-34) H D 03/17/17 20:14 Attending/Attestation - Attestation I have personally seen and examined this patient.: Yes I have fully participated in the care of the patient.: Yes I have reviewed all pertinent clinical information, including history, physical exam and plan: Yes Notes (Text): Pt was seen and examined at bedside Agree with above note and assessment Pt is improving clinically Weaning from Vent C.w ICU management Plan d.w Nurse and ICU attending.
[2017-03-20 10:37] LABS: ANISOCYTOSIS SLIGHT; BANDS 15 % (0-2); EOSINOPHIL 5 % (0-4); HYPOCHROMIC SLIGHT; LYMPHOCYTE 3 % (20-40); MONOCYTE 13 % (0-10); NEUTROPHIL 64 % (50-75); PLATELET ESTIMATE NORMAL (NORMAL); TOTAL CELLS COUNTED 100
[2017-03-20 10:38] LABS: MICROCYTOSIS SLIGHT; OVALOCYTES SLIGHT; TARGET CELLS SLIGHT
[2017-03-20] MEDS ORDERED: Iohexol 240 (50 ml) PO ONE (11:17)
[2017-03-20] MEDS: Albumin Human 25% (12.5 gm/50 ml) IV SCH ×10 (11:40→21:11)
--- NOTE | 2017-03-20 17:01 | CP.CCUPN ---
CCU Subjective - Physician Review Events Since Last Encounter (Free Text): 03/20/17 16:58 patient is waking up very slowly. Alert but not following commands nor tracking. CCU Objective - Vital Signs / Intake & Output Vital Signs (Last 4 hours): Vital Signs Temp Pulse Resp BP Pulse Ox 03/20/17 16:03 93 H 15 112/65 98 03/20/17 16:00 98.1 F 92 H 16 99 03/20/17 15:03 92 H 15 120/69 98 03/20/17 15:00 92 H 14 99 03/20/17 14:03 89 16 120/70 98 03/20/17 14:00 87 16 98 03/20/17 13:03 92 H 15 110/68 03/20/17 13:00 92 H 15 99 Intake and Output (Last 8hrs): Intake & Output 03/20/17 03/20/17 03/20/17 06:59 14:59 22:59 Intake Total 1004 851 108 Output Total 475 945 600 Balance 529 -94 -492 Weight 212 lb 7 oz Intake: Intake, IV Amount 1004 791 108 Left Hand 72 9 Right Hand 100 50 100 left hand #2 800 700 upper midabdomen on-Q 32 32 8 pump Tube Feeding 60 Output: Drainage 50 Right Lower Abdomen 50 Urine 375 945 600 Urethral (Nieto) 375 945 600 Stool 50 - Physical Exam Head: Positive for: Atraumatic, Normocephalic Pupils: Positive for: PERRL Extroacular Muscles: Positive for: EOMI Conjunctiva: Positive for: Normal Mouth: Positive for: Moist Mucous Membranes Neck: Positive for: Normal Range of Motion Respiratory/Chest: Positive for: Clear to Auscultation, Accessory Muscle Use Cardiovascular: Positive for: Regular Rate and Rhythm Abdomen: Positive for: Normal Bowel Sounds. Negative for: Tenderness, Distention, Peritoneal Signs Lower Extremity: Positive for: Other (tvp) Psychiatric: Positive for: Alert, Oriented x 3 - Medications Active Medications: Active Medications Generic Name Dose Route Start Last Admin Trade Name Freq PRN Reason Stop Dose Admin Albumin Human 12.5 gm 03/20/17 10:30 03/20/17 16:41 Albumin Human 25% (12.5 Gm/50 Ml) IV 03/20/17 19:31 12.5 gm Q1H MARC Administration Albuterol/Ipratropium 3 ml 03/18/17 14:00 03/20/17 13:37 Duoneb 3 Mg/0.5 Mg (3 Ml) Ud INH 3 ml RQ6 MARC Administration Enoxaparin Sodium 30 mg 03/18/17 10:00 03/20/17 09:29 Lovenox SC 30 mg DAILY MARC Administration Furosemide 40 mg 03/20/17 10:30 03/20/17 12:54 Lasix IVP 03/21/17 10:31 40 mg Q12H MARC Administration Home Med 0 drop 03/15/17 21:15 03/20/17 09:29 Patient's Own Drops OU 1 drop BID MARC Administration Home Med 0 drop 03/15/17 22:00 03/19/17 22:06 Patient's Own Drops OU 1 drop HS MARC Administration Metronidazole 500 mg in 100 mls @ 100 mls/hr 03/15/17 14:00 03/20/17 13:42 Flagyl IVPB 100 mls/hr Q8 MARC Administration Cefepime HCl 2 gm in 100 mls @ 100 mls/hr 03/16/17 12:00 03/20/17 11:58 Maxipime Iv 2 Gm Premix IVPB 03/21/17 12:01 100 mls/hr Q8H MARC Administration BUPIVACAINE 0.125%/0.9% NACL 600 mls @ 4 mls/hr 03/17/17 19:31 03/17/17 20:32 Bupivacaine-Ns 0.125% On-Q Director Of Compensation IJ 03/24/17 01:30 4 mls/hr ONCE ONE Administration Fentanyl Citrate 2,500 mcg/ 250 mls @ 17.95 mls/hr 03/18/17 16:45 03/19/17 20 :30 Dextrose IV 1 mcg/kg/hr .[id number] PRN 8.97 mls/hr Protocol Administration 2 MCG/KG/HR Tigecycline 50 mg/ Sodium 100 mls @ 100 mls/hr 03/20/17 16:00 Chloride IVPB Q12H MARC Ondansetron HCl 4 mg 03/15/17 08:52 03/16/17 13:07 Zofran Inj IVP 4 mg Q4H PRN Administration Nausea/Vomiting Pantoprazole Sodium 40 mg 03/17/17 10:00 01/21/18 09:28 Protonix Inj IVP 40 mg DAILY MARC Administration - Patient Studies Lab Studies: Microbiology Studies 03/15/17 09:44 Blood Culture - Final Blood NO GROWTH AFTER 5 DAYS Gram Stain - Final TEST NOT PERFORMED 03/15/17 09:44 Blood Culture - Final Blood NO GROWTH AFTER 5 DAYS Gram Stain - Final TEST NOT PERFORMED 03/19/17 00:15 Blood Culture - Preliminary Blood-Venous NO GROWTH AFTER 24 HOURS 03/19/17 00:30 Blood Culture - Preliminary Blood-Venous NO GROWTH AFTER 24 HOURS 03/19/17 15:25 Gram Stain - Final Trachasp Lab Studies 03/20/17 03/20/17 03/20/17 Range/Units 15:35 06:40 06:40 WBC (4.8-10.8) K/uL RBC (4.40-5.90) Mil/uL Hgb (12.0-18.0) g/dL Hct (35.0-51.0) % MCV (80.0-94.0) fL MCH (27.0-31.0) pg MCHC (33.0-37.0) g/dL RDW (11.5-14.5) % Plt Count (130-400) K/uL MPV (7.2-11.7) fL Neut % (Auto) (50.0-75.0) % Lymph % (Auto) (20.0-40.0) % Pope % (Auto) (0.0-10.0) % Eos % (Auto) (0.0-4.0) % Baso % (Auto) (0.0-2.0) % Neut # (1.8-7.0) K/uL Lymph # (1.0-4.3) K/uL Pope # (0.0-0.8) K/uL Eos # (0.0-0.7) K/uL Baso # (0.0-0.2) K/uL Neutrophils % (Manual) (50-75) % Band Neutrophils % (0-2) % Lymphocytes % (Manual) (20-40) % Monocytes % (Manual) (0-10) % Eosinophils % (Manual) (0-4) % Platelet Estimate (NORMAL) Hypochromasia (manual) Anisocytosis (manual) Microcytosis (manual) Target Cells Ovalocytes Puncture Site pCO2 (35-45) mm/Hg pO2 (80-100) mm/Hg HCO3 (21-28) mmol/L ABG pH (7.35-7.45) ABG Total CO2 (22-28) mmol/L ABG O2 Saturation (95-98) % ABG Base Excess (-2.0-3.0) mmol/L ABG Hemoglobin (11.7-17.4) g/dL ABG Carboxyhemoglobin (0.5-1.5) % POC ABG HHb (Measured) (0.0-5.0) % ABG Methemoglobin (0.0-3.0) % Satinder Test A-a O2 Difference mm/Hg Respiratory Index Hgb O2 Saturation (95.0-98.0) % Vent Mode Mechanical Rate FiO2 % Tidal Volume PEEP Sodium 129 L 130 L (132-148) mmol/L Potassium 4.2 4.2 (3.6-5.2) mmol/L Chloride 103 103 (98-107) mmol/L Carbon Dioxide 21 L 21 L (22-30) mmol/L Anion Gap 10 10 (10-20) BUN 32 H 32 H (9-20) mg/dL Creatinine 1.6 H 1.6 H (0.8-1.5) mg/dL Est GFR ( Amer) 53 53 Est GFR (Non-Af Amer) 44 44 Random Glucose 93 92 (75-110) mg/dL Calcium 7.7 L 7.8 L (8.6-10.4) mg/dl Magnesium 2.1 (1.6-2.3) mg/dL Total Bilirubin 1.4 H (0.2-1.3) mg/dL AST 91 H D (17-59) U/L ALT 40 (21-72) U/L Alkaline Phosphatase 112 (38-126) U/L Total Protein 5.3 L (6.3-8.3) g/dL Albumin 2.6 L (3.5-5.0) g/dL Globulin 2.8 (2.2-3.9) gm/dL Albumin/Globulin Ratio 0.9 L (1.0-2.1) TSH 3rd Generation 1.23 (0.46-4.68) mIU/L Ur Random Sodium 111 mmol/L Ur Random Potassium 14.0 mmol/L 03/20/17 03/20/17 Range/Units 06:38 05:02 WBC 12.7 H (4.8-10.8) K/uL RBC 3.25 L (4.40-5.90) Mil/uL Hgb 8.0 L (12.0-18.0) g/dL Hct 25.0 L (35.0-51.0) % MCV 77.0 L (80.0-94.0) fL MCH 24.5 L (27.0-31.0) pg MCHC 31.8 L (33.0-37.0) g/dL RDW 18.4 H (11.5-14.5) % Plt Count 195 (130-400) K/uL MPV 8.8 (7.2-11.7) fL Neut % (Auto) 80.6 H (50.0-75.0) % Lymph % (Auto) 6.6 L (20.0-40.0) % Pope % (Auto) 11.2 H (0.0-10.0) % Eos % (Auto) 1.3 (0.0-4.0) % Baso % (Auto) 0.3 (0.0-2.0) % Neut # 10.2 H (1.8-7.0) K/uL Lymph # 0.8 L (1.0-4.3) K/uL Pope # 1.4 H (0.0-0.8) K/uL Eos # 0.2 (0.0-0.7) K/uL Baso # 0.0 (0.0-0.2) K/uL Neutrophils % (Manual) 64 (50-75) % Band Neutrophils % 15 H* (0-2) % Lymphocytes % (Manual) 3 L (20-40) % Monocytes % (Manual) 13 H (0-10) % Eosinophils % (Manual) 5 H (0-4) % Platelet Estimate Normal (NORMAL) Hypochromasia (manual) Slight Anisocytosis (manual) Slight Microcytosis (manual) Slight Target Cells Slight Ovalocytes Slight Puncture Site A-line pCO2 43 (35-45) mm/Hg pO2 127 H (80-100) mm/Hg HCO3 19.6 L (21-28) mmol/L ABG pH 7.27 L (7.35-7.45) ABG Total CO2 21.0 L (22-28) mmol/L ABG O2 Saturation 99.3 H (95-98) % ABG Base Excess -6.8 L (-2.0-3.0) mmol/L ABG Hemoglobin 9.0 L (11.7-17.4) g/dL ABG Carboxyhemoglobin 1.7 H (0.5-1.5) % POC ABG HHb (Measured) 0.7 (0.0-5.0) % ABG Methemoglobin 0.9 (0.0-3.0) % Satinder Test Na A-a O2 Difference 176.0 mm/Hg Respiratory Index 1.4 Hgb O2 Saturation 96.7 (95.0-98.0) % Vent Mode Prvc Mechanical Rate 12 FiO2 50.0 % Tidal Volume 500 PEEP 8 Sodium (132-148) mmol/L Potassium (3.6-5.2) mmol/L Chloride (98-107) mmol/L Carbon Dioxide (22-30) mmol/L Anion Gap (10-20) BUN (9-20) mg/dL Creatinine (0.8-1.5) mg/dL Est GFR ( Amer) Est GFR (Non-Af Amer) Random Glucose (75-110) mg/dL Calcium (8.6-10.4) mg/dl Magnesium (1.6-2.3) mg/dL Total Bilirubin (0.2-1.3) mg/dL AST (17-59) U/L ALT (21-72) U/L Alkaline Phosphatase (38-126) U/L Total Protein (6.3-8.3) g/dL Albumin (3.5-5.0) g/dL Globulin (2.2-3.9) gm/dL Albumin/Globulin Ratio (1.0-2.1) TSH 3rd Generation (0.46-4.68) mIU/L Ur Random Sodium mmol/L Ur Random Potassium mmol/L Laboratory Results - last 24 hr 03/20/17 03/20/17 03/20/17 05:02 06:38 06:40 WBC 12.7 H RBC 3.25 L Hgb 8.0 L Hct 25.0 L MCV 77.0 L MCH 24.5 L MCHC 31.8 L RDW 18.4 H Plt Count 195 MPV 8.8 Neut % (Auto) 80.6 H Lymph % (Auto) 6.6 L Pope % (Auto) 11.2 H Eos % (Auto) 1.3 Baso % (Auto) 0.3 Neut # 10.2 H Lymph # 0.8 L Pope # 1.4 H Eos # 0.2 Baso # 0.0 Neutrophils % (Manual) 64 Band Neutrophils % 15 H* Lymphocytes % (Manual) 3 L Monocytes % (Manual) 13 H Eosinophils % (Manual) 5 H Platelet Estimate Normal Hypochromasia (manual) Slight Anisocytosis (manual) Slight Microcytosis (manual) Slight Target Cells Slight Ovalocytes Slight Puncture Site A-line pCO2 43 pO2 127 H HCO3 19.6 L ABG pH 7.27 L ABG Total CO2 21.0 L ABG O2 Saturation 99.3 H ABG Base Excess -6.8 L ABG Hemoglobin 9.0 L ABG Carboxyhemoglobin 1.7 H POC ABG HHb (Measured) 0.7 ABG Methemoglobin 0.9 Satinder Test Na A-a O2 Difference 176.0 Respiratory Index 1.4 Hgb O2 Saturation 96.7 Vent Mode Prvc Mechanical Rate 12 FiO2 50.0 Tidal Volume 500 PEEP 8 Sodium 130 L Potassium 4.2 Chloride 103 Carbon Dioxide 21 L Anion Gap 10 BUN 32 H Creatinine 1.6 H Est GFR ( Amer) 53 Est GFR (Non-Af Amer) 44 Random Glucose 92 Calcium 7.8 L Magnesium Total Bilirubin AST ALT Alkaline Phosphatase Total Protein Albumin Globulin Albumin/Globulin Ratio TSH 3rd Generation 1.23 Ur Random Sodium Ur Random Potassium 03/20/17 03/20/17 06:40 15:35 WBC RBC Hgb Hct MCV MCH MCHC RDW Plt Count MPV Neut % (Auto) Lymph % (Auto) Pope % (Auto) Eos % (Auto) Baso % (Auto) Neut # Lymph # Pope # Eos # Baso # Neutrophils % (Manual) Band Neutrophils % Lymphocytes % (Manual) Monocytes % (Manual) Eosinophils % (Manual) Platelet Estimate Hypochromasia (manual) Anisocytosis (manual) Microcytosis (manual) Target Cells Ovalocytes Puncture Site pCO2 pO2 HCO3 ABG pH ABG Total CO2 ABG O2 Saturation ABG Base Excess ABG Hemoglobin ABG Carboxyhemoglobin POC ABG HHb (Measured) ABG Methemoglobin Satinder Test A-a O2 Difference Respiratory Index Hgb O2 Saturation Vent Mode Mechanical Rate FiO2 Tidal Volume PEEP Sodium 129 L Potassium 4.2 Chloride 103 Carbon Dioxide 21 L Anion Gap 10 BUN 32 H Creatinine 1.6 H Est GFR ( Amer) 53 Est GFR (Non-Af Amer) 44 Random Glucose 93 Calcium 7.7 L Magnesium 2.1 Total Bilirubin 1.4 H AST 91 H D ALT 40 Alkaline Phosphatase 112 Total Protein 5.3 L Albumin 2.6 L Globulin 2.8 Albumin/Globulin Ratio 0.9 L TSH 3rd Generation Ur Random Sodium 111 Ur Random Potassium 14.0 Review of Systems - Review of Systems Systems not reviewed;Unavailable: Altered Mental Status Critical Care Progress Note - Nutrition Nutrition: Nutrition Category Date Time Status NPO Diet [DIET] Diets 03/16/17 Breakfast Active Assessment/Plan (1) Metastatic colon cancer to liver Assessment and plan: Neuro: stopped fentanyl gtt. Patient slow to awake, poor clearance of sedatives with renal and possible liver dysfunction (mets). Pulm: Postoperative respiratory failure, on vent. developed possible right lower lobe pneumonia (03/19), today's CXR equivocal. Cannot PS until more awake. CV: Hemodynamically stable. Lopressor IV every 6 hours for sinus tachycardia. Hem: Anemia of chronic disease Renal: edematous, starting on albumin drip x 10h. urine output increasing, creatinine rising. Endo: No acute issues GI: Nothing by mouth, tolerating tube feeds Jevity at 20. MARIBELL drain draining serosanguineous fluid. Obtaining panscan CT head/chest/abd/pelvis. ID: Sepsis from new right lower lobe pneumonia, possible VAP. Empiric coverage for possible intra-abdominal process. Continue cefepime and Flagyl, started on Tigecycline (MRSA coverage). DVT proph - Lovenox GI proph - Protonix nieto for strict I/O's during acute illness Code status - full code Critical Care Time spent 35 minutes Multi-disciplinary rounds were performed with house staff, nursing, speech therapy, respiratory therapy, pharmacy and nutrition with integrated input from the primary team/attending and other consulting services. The documented time is cumulative and includes review of patient data/exams/labs/chart review and examination of the patient on rounds and throughout the day; time is exclusive of any procedures or teaching time. Current Visit: Yes Status: Acute
--- NOTE | 2017-03-20 17:56 | CT ---
PROCEDURE: CT HEAD WITHOUT CONTRAST. HISTORY: r/o CVA/ams COMPARISON: None available. TECHNIQUE: Axial computed tomography images were obtained through the head/brain without intravenous contrast. Radiation dose: Total exam DLP = 1105.68 mGy-cm. This CT exam was performed using one or more of the following dose reduction techniques: Automated exposure control, adjustment of the mA and/or kV according to patient size, and/or use of iterative reconstruction technique. FINDINGS: HEMORRHAGE: No intracranial hemorrhage. BRAIN: No mass effect or edema. Mild age-appropriate atrophy. VENTRICLES: Unremarkable. No hydrocephalus. CALVARIUM: Unremarkable. PARANASAL SINUSES: Unremarkable as visualized. No significant inflammatory changes. MASTOID AIR CELLS: Unremarkable as visualized. No inflammatory changes. OTHER FINDINGS: None. IMPRESSION: No intracranial mass, hemorrhage or evidence of acute infarct.
--- NOTE | 2017-03-20 19:30 | CT ---
EXAM: CT Abdomen and Pelvis Without Intravenous Contrast EXAM DATE/TIME: Exam ordered 03/20/2017 8:58 AM CLINICAL HISTORY: 62 years old, male; Signs and symptoms; Other: Anemia/arf; Prior surgery; Surgery date: 3-7 days post-operative; Surgery type: Hemicolectomy; Additional info: Post op/bandemia/anemic/arf TECHNIQUE: Axial computed tomography images of the abdomen and pelvis without intravenous contrast. All CT scans at this facility use one or more dose reduction techniques, viz.: automated exposure control; ma/kV adjustment per patient size (including targeted exams where dose is matched to indication; i.e. head); or iterative reconstruction technique. Coronal and sagittal reformatted images were created and reviewed. COMPARISON: CT - ABD PELVIS IV CONTRAST ONLY 2017-03-15 06:15 FINDINGS: Lower thorax: Multiple pulmonary nodules (Too numerous to count ) are seen at the right lung base. There is segmental consolidation noted in the left lower lobe and the right lower lobe. There small bilateral pleural effusions, right side greater than left. ABDOMEN: Liver: Liver is heterogeneous in density suggesting multiple liver masses. Gallbladder and bile ducts: Contrast is noted within the gallbladder. No calcified stones. No ductal dilation. Pancreas: Unremarkable. No ductal dilation. Spleen: Unremarkable. No splenomegaly. Adrenals: Unremarkable. No mass. Kidneys and ureters: Unremarkable. No obstructing stones. No hydronephrosis. Stomach and bowel: There is an ostomy exiting the left mid abdomen. A moderate amount of stool is seen in the rectum. Mildly dilated small bowel loops are noted in the abdomen. There is a mild wall thickening is noted of the transverse colon distal to the hepatic flexure. Appendix: No findings to suggest acute appendicitis. PELVIS: Bladder: A Fox catheter is present within the bladder. No stones. Reproductive: Prostate measures 4 x 3.7 x 3.4 cm. There small bilateral hydroceles. ABDOMEN and PELVIS: Intraperitoneal space: Small amount of fluid is noted within the mesentery. There is a fluid collection contiguous with the femoral vessels on the left. The collection measures approximately 2.3 x 2.2 2.7 cm. No free air. Bones/joints: A left femoral intramedullary catarina is present. Mild degenerative changes and facet arthropathy is noted in the lumbar spine. There is a focal right millimeters of anterolisthesis of L3 with respect to L2. No acute fracture. No dislocation. Soft tissues: There is a midline abdominal incision. Surgical susana are noted along the anterior abdominal wall. There is anasarca asymmetric to the left.. Vasculature: An inferior vena cava filter is present below the level the renal veins. No abdominal aortic aneurysm. Lymph nodes: Unremarkable. No enlarged lymph nodes. Tubes, lines and devices: The tip of the nasogastric tube is in the body the stomach. The tip of a percutaneously placed drain via the right lower quadrant is positioned in the left lateral paracolic gutter at the level of the midabdomen. IMPRESSION: 1. Post operative changes related to left colectomy. 2. Dilated small bowel loops suggests small bowel ileus versus partial small bowel obstruction. No evidence of strangulation. 3. Small fluid collection anterior to the left femoral vessels. The location suggests hematoma. 4.. Small amount of intra-abdominal ascites and anasarca with bilateral hydroceles. 5. Bibasilar segmental atelectasis/consolidation with small bilateral pleural effusions. 6. Multiple pulmonary nodules and multiple liver masses suggesting metastatic disease. There
[2017-03-20] MEDS ORDERED: Tigecycline 50 MG in Dextrose 5% In Water 100 ML IVPB SCH (20:00)
[2017-03-20] MEDS: TRAVATAN OU SCH (21:40)
[2017-03-21] MEDS: Albuterol-Ipratrop 3 mg / 0.5 (3 ml) UD INH SCH ×4 (01:43→21:03)
[2017-03-21] MEDS: Cefepime IV 2 gm in Dextrose 2 GM/100 ML BAG IVPB SCH ×3 (04:12→20:05)
[2017-03-21] MEDS: metroNIDAZOLE IV 500 mg/100 ml 500 MG/100 ML BAG IVPB SCH ×3 (05:55→21:56)
[2017-03-21 06:10] LABS: ARTERIAL BLOOD GAS HCO3 25.3 mmol/L (21-28); ARTERIAL BLOOD GAS HEMOGLOBIN 9.3 g/dL (11.7-17.4); ARTERIAL BLOOD GAS O2 SAT 99.5 % (95-98); ARTERIAL BLOOD GAS PCO2 41 mm/Hg (35-45); ARTERIAL BLOOD GAS PO2 220 mm/Hg (80-100); ARTERIAL BLOOD GAS TCO2 26.7 mmol/L (22-28)
[2017-03-21 06:25] LABS: BASO # 0.1 K/uL (0.0-0.2); BASO % 0.9 % (0.0-2.0); EOS # 0.3 K/uL (0.0-0.7); EOS % 2.3 % (0.0-4.0); HEMOGLOBIN 8.2 g/dL (12.0-18.0); LYMPH # 0.9 K/uL (1.0-4.3); LYMPH % 6.4 % (20.0-40.0); MEAN CELL VOLUME 75.4 fL (80.0-94.0); MEAN CORPUSCULAR HEMOGLOBIN 24.3 pg (27.0-31.0); MEAN CORPUSCULAR HGB CONC 32.2 g/dL (33.0-37.0); MEAN PLATELET VOLUME 8.5 fL (7.2-11.7); MONO # 1.5 K/uL (0.0-0.8); MONO % 10.3 % (0.0-10.0); NEUT # 11.5 K/uL (1.8-7.0); NEUT % 80.1 % (50.0-75.0); PLATELET COUNT 231 K/uL (130-400); RBC 3.39 Mil/uL (4.40-5.90); WHITE BLOOD COUNT 14.3 K/uL (4.8-10.8)
[2017-03-21 06:31] LABS: ALB/GLOB RATIO 1.3 (1.0-2.1); ALBUMIN 3.7 g/dL (3.5-5.0); CALCIUM 8.4 mg/dl (8.6-10.4); MAGNESIUM 1.8 mg/dL (1.6-2.3)
--- NOTE | 2017-03-21 07:51 | CP.PCM.PN ---
<Michael Granda - Last Filed: 03/21/17 19:17> Subjective - Date & Time of Evaluation Date of Evaluation: 03/21/17 Time of Evaluation: 07:15 - Subjective Subjective: General Surgery Note for Dr Steinberg Patient seen and examined at bedside in ICU. No acute event overnight. Patient is awake but remains sedated. He is intubated and on vent support. Patient responding to some stimuli. Colostomy with 25 cc/24 hrs of output. Urine output was 5400 cc over 24 hrs. Objective - Vital Signs/Intake and Output Vital Signs (last 24 hours): Temp Pulse Resp BP Pulse Ox 98 F 101 H 18 160/93 H 100 03/21/17 04:00 03/21/17 06:00 03/21/17 06:00 03/21/17 06:04 03/21/17 06:00 Intake and Output: 03/21/17 03/21/17 06:59 18:59 Intake Total 698 Output Total 3745 Balance -3047 - Medications Medications: Current Medications Albuterol/Ipratropium (Duoneb 3 Mg/0.5 Mg (3 Ml) Ud) 3 ml INH RQ6 [facility] Last Admin: 03/21/17 01:43 Dose: 3 ml Enoxaparin Sodium (Lovenox) 30 mg SC DAILY [facility] Last Admin: 03/20/17 09:29 Dose: 30 mg Furosemide (Lasix) 40 mg IVP Q12H [facility] Stop: 03/21/17 10:31 Last Admin: 03/20/17 21:39 Dose: 40 mg Home Med (Patient's Own Drops) 0 drop OU BID [facility] Last Admin: 03/20/17 18:03 Dose: 1 drop Home Med (Patient's Own Drops) 0 drop OU HS [facility] Last Admin: 03/20/17 21:40 Dose: 1 drop Metronidazole (Flagyl) 500 mg in 100 mls @ 100 mls/hr IVPB Q8 [facility] Last Admin: 03/21/17 05:55 Dose: 100 mls/hr Cefepime HCl (Maxipime Iv 2 Gm Premix) 2 gm in 100 mls @ 100 mls/hr IVPB Q8H [facility] Stop: 03/21/17 12:01 Last Admin: 03/21/17 04:12 Dose: 100 mls/hr BUPIVACAINE 0.125%/0.9% NACL (Bupivacaine-Ns 0.125% On-Q Gallery Assistant) 600 mls @ 4 mls/ hr IJ ONCE ONE Stop: 03/24/17 01:30 Last Admin: 03/17/17 20:32 Dose: 4 mls/hr Fentanyl Citrate 2,500 mcg/ (Dextrose) 250 mls @ 17.95 mls/hr IV .[id number] PRN; 2 MCG/KG/HR PRN Reason: Protocol Last Admin: 03/19/17 20:30 Dose: 1 mcg/kg/hr, 8.97 mls/hr Tigecycline 50 mg/ Sodium (Chloride) 100 mls @ 100 mls/hr IVPB Q12H [facility] Last Admin: 03/21/17 04:12 Dose: 100 mls/hr Ondansetron HCl (Zofran Inj) 4 mg IVP Q4H PRN PRN Reason: Nausea/Vomiting Last Admin: 03/16/17 13:07 Dose: 4 mg Pantoprazole Sodium (Protonix Inj) 40 mg IVP DAILY [facility] Last Admin: 03/20/17 09:28 Dose: 40 mg - Labs Labs: 03/21/17 06:06 03/21/17 06:06 PT 19.4 SECONDS (9.7-12.2) H D 03/17/17 20:14 INR 1.7 D 03/17/17 20:14 APTT 35 SECONDS (21-34) H D 03/17/17 20:14 Assessment and Plan - Assessment and Plan (Free Text) Plan: 62M with stage IV colon cancer s/p colectomy and colostomy for obstructing mass POD#4 -Tube feeds -No sedation -Continue iv antibiotics -Strict I's & O's -Medical management as per ICU -Discussed with Dr Maryan Granda PGY1 <Trace Steinberg - Last Filed: 03/26/17 15:12> Objective - Vital Signs/Intake and Output Vital Signs (last 24 hours): Temp Pulse Resp BP Pulse Ox 97.6 F 88 29 H 143/87 98 03/26/17 04:00 03/26/17 07:02 03/26/17 07:02 03/26/17 10:40 03/26/17 07:00 Intake and Output: 03/26/17 03/26/17 06:59 18:59 Intake Total 1386 104 Output Total 1370 Balance 16 104 - Medications Medications: Current Medications Albuterol/Ipratropium (Duoneb 3 Mg/0.5 Mg (3 Ml) Ud) 3 ml INH RQ6 [facility] Last Admin: 03/26/17 14:36 Dose: 3 ml Benzocaine/Menthol (Cepacol Sore Throat) 1 michael MT Q4 PRN PRN Reason: Sore Throat Last Admin: 03/24/17 09:18 Dose: 1 michael Home Med (Patient's Own Drops) 0 drop OU BID [facility] Last Admin: 03/26/17 10:40 Dose: 1 drop Home Med (Patient's Own Drops) 0 drop OU HS [facility] Last Admin: 03/26/17 00:24 Dose: 1 drop Metronidazole (Flagyl) 500 mg in 100 mls @ 100 mls/hr IVPB Q8 [facility] Last Admin: 03/26/17 06:05 Dose: 100 mls/hr BUPIVACAINE 0.125%/0.9% NACL (Bupivacaine-Ns 0.125% On-Q Gallery Assistant) 600 mls @ 4 mls/ hr IJ ONCE ONE Stop: 03/27/17 15:29 Last Admin: 03/21/17 12:17 Dose: 4 mls/hr Cefepime HCl (Maxipime Iv 2 Gm Premix) 2 gm in 100 mls @ 100 mls/hr IVPB Q8H [facility] Stop: 03/26/17 20:01 Last Admin: 03/26/17 03:24 Dose: 100 mls/hr Vancomycin/Sodium Chloride (Vancomycin 1 Gm/Ns 200 Ml) 1 gm in 200 mls @ 133.333 mls/hr IVPB Q24H [facility] Stop: 03/29/17 09:01 Last Admin: 03/26/17 10:39 Dose: 133.333 mls/hr Dextrose/Sodium Chloride (Dextrose 5%/0.9% Ns 1000 Ml) 1,000 mls @ 42 mls/hr IV .[id number] [facility] Last Admin: 03/26/17 10:39 Dose: 42 mls/hr Losartan Potassium (Cozaar) 25 mg PO DAILY [facility] Last Admin: 03/26/17 10:40 Dose: 25 mg Metoprolol Tartrate (Lopressor) 25 mg PO BID [facility] Last Admin: 03/26/17 10:40 Dose: 25 mg Ondansetron HCl (Zofran Inj) 4 mg IVP Q4H PRN PRN Reason: Nausea/Vomiting Last Admin: 03/16/17 13:07 Dose: 4 mg Pantoprazole Sodium (Protonix Inj) 40 mg IVP DAILY [facility] Last Admin: 03/26/17 10:40 Dose: 40 mg - Labs Labs: 03/26/17 06:11 03/26/17 06:11 PT 19.4 SECONDS (9.7-12.2) H D 03/17/17 20:14 INR 1.7 D 03/17/17 20:14 APTT 35 SECONDS (21-34) H D 03/17/17 20:14 Attending/Attestation - Attestation I have personally seen and examined this patient.: Yes I have fully participated in the care of the patient.: Yes I have reviewed all pertinent clinical information, including history, physical exam and plan: Yes Notes (Text): Pt was seen and examined at bedside Agree with above note and assessment Pt is more awake Tolerating CPAP Weaning from Vent C.w IV antibiotics Plan d.w Nurse and ICU attending.
--- NOTE | 2017-03-21 08:32 | RAD ---
HISTORY: f/u pneumonia COMPARISON: 03/20/2017 FINDINGS: LUNGS: Patchy diffuse bilateral pulmonary infiltrates. Slight decrease in extent of right-sided infiltrate compared to the prior examination. Increasing left-sided infiltrate. PLEURA: No significant pleural effusion identified, no pneumothorax apparent. CARDIOVASCULAR: Normal heart size. ET tube and NG tube unchanged. OSSEOUS STRUCTURES: No significant abnormalities. VISUALIZED UPPER ABDOMEN: Normal. OTHER FINDINGS: None. IMPRESSION: Patchy bilateral pulmonary infiltrates increasing on the left and decreasing on the right.
[2017-03-21 08:50] LABS: BANDS 21 % (0-2); EOSINOPHIL 4 % (0-4); LYMPHOCYTE 3 % (20-40); MONOCYTE 5 % (0-10); NEUTROPHIL 67 % (50-75); TOTAL CELLS COUNTED 100
[2017-03-21 08:51] LABS: ANISOCYTOSIS MODERATE; HYPOCHROMIC SLIGHT; PLATELET ESTIMATE NORMAL (NORMAL); TARGET CELLS SLIGHT
--- NOTE | 2017-03-21 09:23 | CP.PCM.PN ---
Subjective - Date & Time of Evaluation Date of Evaluation: 03/21/17 Time of Evaluation: 09:00 - Subjective Subjective: This is my first time meeting patient as I am now taking over for my colleague who was following previous week. At this moment the patient remains intubated. He is currently on CPAP/PS settings at this time. He was able to open his eyes when name is called, the only command he was able to follow was raising both arms. He did not move his toes when asked. He is awake however besides being able to move his arms he was not able to follow further commands. This is a 62 year old male who came to the hospital on 03/15 with abdominal pain , weightloss, no BMs, and also dark emesis. He was determined to have a a 4.6 x 5 x 7 cm mass that was causing obstruction. This same imaging also suggested a metastatic spread of a cancer to lungs and liver as well. He then underwent a flexible sigmoidscopy on 03/16 and the biopsy showed adenocarcinoma. He underwent an exploratory laparotomy and left hemicolectomy and creation of a colostomy. At this time he remains in the ICU, on IV abx cefepime as well as tigecyline. The chest imaging is suggesting also pneumonia as well. Objective - Vital Signs/Intake and Output Vital Signs (last 24 hours): Temp Pulse Resp BP Pulse Ox 97.6 F 98 H 18 135/73 100 03/21/17 08:00 03/21/17 08:00 03/21/17 08:00 03/21/17 08:00 03/21/17 08:00 Intake and Output: 03/21/17 03/21/17 06:59 18:59 Intake Total 698 8 Output Total 3745 225 Balance -3047 -217 - Medications Medications: Current Medications Albuterol/Ipratropium (Duoneb 3 Mg/0.5 Mg (3 Ml) Ud) 3 ml INH RQ6 [facility] Last Admin: 03/21/17 08:06 Dose: 3 ml Enoxaparin Sodium (Lovenox) 30 mg SC DAILY [facility] Last Admin: 03/20/17 09:29 Dose: 30 mg Furosemide (Lasix) 40 mg IVP Q12H [facility] Stop: 03/21/17 10:31 Last Admin: 03/20/17 21:39 Dose: 40 mg Home Med (Patient's Own Drops) 0 drop OU BID [facility] Last Admin: 03/20/17 18:03 Dose: 1 drop Home Med (Patient's Own Drops) 0 drop OU HS [facility] Last Admin: 03/20/17 21:40 Dose: 1 drop Metronidazole (Flagyl) 500 mg in 100 mls @ 100 mls/hr IVPB Q8 [facility] Last Admin: 03/21/17 05:55 Dose: 100 mls/hr Cefepime HCl (Maxipime Iv 2 Gm Premix) 2 gm in 100 mls @ 100 mls/hr IVPB Q8H [facility] Stop: 03/21/17 12:01 Last Admin: 03/21/17 04:12 Dose: 100 mls/hr Fentanyl Citrate 2,500 mcg/ (Dextrose) 250 mls @ 17.95 mls/hr IV .[id number] PRN; 2 MCG/KG/HR PRN Reason: Protocol Last Admin: 03/19/17 20:30 Dose: 1 mcg/kg/hr, 8.97 mls/hr Tigecycline 50 mg/ Sodium (Chloride) 100 mls @ 100 mls/hr IVPB Q12H [facility] Last Admin: 03/21/17 04:12 Dose: 100 mls/hr BUPIVACAINE 0.125%/0.9% NACL (Bupivacaine-Ns 0.125% On-Q [employer]) 600 mls @ 4 mls/ hr IJ ONCE ONE Stop: 03/27/17 15:29 Ondansetron HCl (Zofran Inj) 4 mg IVP Q4H PRN PRN Reason: Nausea/Vomiting Last Admin: 03/16/17 13:07 Dose: 4 mg Pantoprazole Sodium (Protonix Inj) 40 mg IVP DAILY [facility] Last Admin: 03/20/17 09:28 Dose: 40 mg - Labs Labs: 03/21/17 06:06 03/21/17 06:06 PT 19.4 SECONDS (9.7-12.2) H D 03/17/17 20:14 INR 1.7 D 03/17/17 20:14 APTT 35 SECONDS (21-34) H D 03/17/17 20:14 - Constitutional Appears: Chronically Ill - Head Exam Additional comments: Intubated at this time. On CPAP/PS settings - Eye Exam Eye Exam: absent: EOMI, Normal appearance - ENT Exam ENT Exam: Mucous Membranes Moist - Respiratory Exam Respiratory Exam: Decreased Breath Sounds - Cardiovascular Exam Cardiovascular Exam: REGULAR RHYTHM - GI/Abdominal Exam GI & Abdominal Exam: Tenderness Additional comments: Colostomy present left abdomin with some dark brown output. MARIBELL drain present as well - Neurological Exam Neurological Exam: Altered. absent: CN II-XII Intact, Oriented x3 Neuro motor strength exam: Left Upper Extremity: 4, Right Upper Extremity: 4 - Skin Skin Exam: Normal Color, Warm Assessment and Plan - Assessment and Plan (Free Text) Assessment: Plan: T 1. Ventilator dependent respiratory failure 03/21: At this moment is on CPAP/PS settings He has been on IV cefepime, IV tigecyclin, as well as IV flagly The XRAY from today continuing to show infiltrates sedated on MV,urine out is improving 2. Right lower lobe pneumonia 03/21: As mentioned above, continue with ventilation, follow CXRAYs, IV abx The cultures remina negative at this moment 3. Colon mass with obstruction, biopsy from 03/16 showing adenocarcinima. 03/21: Now with colostomy. He is S/P POD 3 of exploratory laparotmy with left hemicolectomy and colostomy. He had takedown of splenic flexure, lysis of adhesions, omentectomy. biopsy. 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 Acute renal failure 03/21: Creatine 1.5 today, urine out put was 5,900 over 24hrs 5.Anemia monitor hemoglobin type and screen and follow hemoglobin 6.Leukocytosis with bands,r/o sepsis continue flagyl , cefepime and Tigecycline follow repeat blood culture and trach culture 7.DVT prophylaxis-SCDs GI prophylaxis-Protonix 8.Liver and lung mass likely metastatic ca Dr dumont/oncology consult
[2017-03-21] MEDS ORDERED: BUPIVACAINE 0.125%/0.9% NACL 600 ML IJ ONE (09:30)
[2017-03-21] MEDS: COMBIGAN OU SCH ×2 (09:36→17:15)
[2017-03-21] MEDS: Enoxaparin 30 mg Syringe SC SCH (09:37)
--- NOTE | 2017-03-21 11:25 | CP.PCM.CON ---
History of Present Illness - History of Present Illness History of Present Illness: 62 year old male with PMHx of glaucoma, DVT and back and hip injury from 6 story fall 20 years ago admitted on 03/15/17 for with coffee ground emesis. Patient admits to "black vomit" and "constipation" on admission. He has not had a bowel movement in about 1 week. Admits to very small BM this morning. He noticed blood when he wiped and very minimal amounts of stool. Patient reports 10 lb unintentional weight loss over the past 1 year. He also admits to "spaghetti like" stools for the past 4-5 years. Patient has never had a colonoscopy or endoscopy. In the ED, abdominal CT showed left lower quadrant colonic hyperdense mass measuring 4.6 x 5.1 x 7.0 cm suspicious for colon cancer with partial or early colonic obstruction, omental infiltration, dilated fluid filled small bowel loops. CT also showed bilateral numerous pulmonary nodules representing infection or metastasis. Liver showed multiple ill-defined masses suspicious for hepatic metastasis. Patient denies history of malignancy in himself or in his family. Hgb stable on admission. NGT was placed in the ER. PMHx: back injury after fall from 6 story height, DVT with IVC filter in place, glaucoma. PSHx: Abdominal surgery (ex lap after fall), IVC filter, hip surgery, h/o skin grafting. FMHx: Denies family history of any cancers. Allergies: Penicillin as a child Social: former alcohol abuse, 6 pack of beer per day, quit 2 years ago. Former marijuana abuse, no recent use. 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 Hospital course noted for rising creatinine from 1.0 to 1.6; no known CKD Has remained intubated post hemicolectomy; colostomy in place. Has received IV ABs for post-op pneumonia Review of Systems - Review of Systems Systems not reviewed;Unavailable: Intubated Past Patient History - Tetanus Immunizations Tetanus Immunization: Unknown - Past Medical History & Family History Past Medical History?: Yes Past Family History: Reviewed and not pertinent - Past Social History Smoking Status: Never Smoked Alcohol: None Drugs: Cannabis Home Situation {Lives}: With Family Domestic Violence: Negative - CARDIAC Hx Cardiac Disorders: No - PULMONARY Hx Respiratory Disorders: No - NEUROLOGICAL Hx Neurological Disorder: No - HEENT Hx HEENT Problems: Yes Hx Glaucoma: Yes - RENAL Hx Chronic Kidney Disease: No - ENDOCRINE/METABOLIC Hx Endocrine Disorders: No - HEMATOLOGICAL/ONCOLOGICAL Hx Blood Disorders: No - INTEGUMENTARY Hx Dermatological Problems: No - MUSCULOSKELETAL/RHEUMATOLOGICAL Hx Falls: Yes (work accident) - GASTROINTESTINAL Hx Gastrointestinal Disorders: Yes Hx Constipation: Yes - GENITOURINARY/GYNECOLOGICAL Hx Genitourinary Disorders: No - PSYCHIATRIC Hx Psychophysiologic Disorder: Yes Hx Depression: Yes - SURGICAL HISTORY Hx Surgeries: Yes (SEE COMMENT) Hx Orthopedic Surgery: Yes (BILAT WRIST, right hip surgery s/p work accident) Other/Comment: left knee degloving, exploratory lap s/p work accident - ANESTHESIA Hx Anesthesia: Yes Hx Anesthesia Reactions: No Hx Malignant Hyperthermia: No Has any member of the family had a problem w/ anesthesia?: No Meds Allergies/Adverse Reactions: Allergies Allergy/AdvReac Type Severity Reaction Status Date / Time Penicillins Allergy RASH Verified 03/15/17 04:29 - Medications Medications: Current Medications Albuterol/Ipratropium (Duoneb 3 Mg/0.5 Mg (3 Ml) Ud) 3 ml INH RQ6 [facility] Last Admin: 03/21/17 08:06 Dose: 3 ml Enoxaparin Sodium (Lovenox) 30 mg SC DAILY [facility] Last Admin: 03/21/17 09:37 Dose: 30 mg Home Med (Patient's Own Drops) 0 drop OU BID [facility] Last Admin: 03/21/17 09:36 Dose: 1 drop Home Med (Patient's Own Drops) 0 drop OU HS [facility] Last Admin: 03/20/17 21:40 Dose: 1 drop Metronidazole (Flagyl) 500 mg in 100 mls @ 100 mls/hr IVPB Q8 [facility] Last Admin: 03/21/17 05:55 Dose: 100 mls/hr Cefepime HCl (Maxipime Iv 2 Gm Premix) 2 gm in 100 mls @ 100 mls/hr IVPB Q8H [facility] Stop: 03/21/17 12:01 Last Admin: 03/21/17 04:12 Dose: 100 mls/hr BUPIVACAINE 0.125%/0.9% NACL (Bupivacaine-Ns 0.125% On-Q [place]) 600 mls @ 4 mls/ hr IJ ONCE ONE Stop: 03/27/17 15:29 Metoprolol Tartrate (Lopressor) 25 mg PO BID [facility] Last Admin: 03/21/17 10:34 Dose: 25 mg Ondansetron HCl (Zofran Inj) 4 mg IVP Q4H PRN PRN Reason: Nausea/Vomiting Last Admin: 03/16/17 13:07 Dose: 4 mg Pantoprazole Sodium (Protonix Inj) 40 mg IVP DAILY [facility] Last Admin: 03/21/17 09:37 Dose: 40 mg Physical Exam - Constitutional Appears: In Acute Distress, Chronically Ill - Head Exam Head Exam: ATRAUMATIC, NORMAL INSPECTION - Eye Exam Eye Exam: EOMI, Normal appearance - Neck Exam Neck exam: Positive for: Normal Inspection. Negative for: Tenderness - Respiratory Exam Respiratory Exam: Rhonchi, Respiratory Distress - Cardiovascular Exam Cardiovascular Exam: REGULAR RHYTHM, +S1 - GI/Abdominal Exam GI & Abdominal Exam: Diminished Bowel Sounds, Distended - Extremities Exam Extremities exam: Positive for: normal inspection. Negative for: tenderness - Neurological Exam Neurological exam: Altered, CN II-XII Intact - Skin Skin Exam: Dry, Warm Results - Vital Signs Recent Vital Signs: Last Vital Signs Temp 97.6 F 03/21/17 08:00 Pulse 94 H 03/21/17 11:01 Resp 17 03/21/17 11:01 BP 152/98 H 03/21/17 11:01 Pulse Ox 100 03/21/17 11:01 - Labs Result Diagrams: 03/21/17 06:06 03/21/17 06:06 Labs: Laboratory Results - last 24 hr 03/20/17 03/21/17 03/21/17 15:35 05:23 06:06 WBC RBC Hgb Hct MCV MCH MCHC RDW Plt Count MPV Neut % (Auto) Lymph % (Auto) [place] % (Auto) Eos % (Auto) Baso % (Auto) Neut # Lymph # [place] # Eos # Baso # Neutrophils % (Manual) Band Neutrophils % Lymphocytes % (Manual) Monocytes % (Manual) Eosinophils % (Manual) Platelet Estimate Hypochromasia (manual) Anisocytosis (manual) Target Cells Puncture Site A-line pCO2 41 pO2 220 H HCO3 25.3 ABG pH 7.40 ABG Total CO2 26.7 ABG O2 Saturation 99.5 H ABG Base Excess 0.5 ABG Hemoglobin 9.3 L ABG Carboxyhemoglobin 1.4 POC ABG HHb (Measured) 0.5 ABG Methemoglobin 1.1 Satinder Test Na A-a O2 Difference 85.0 Respiratory Index 0.4 Hgb O2 Saturation 97.1 Vent Mode Prvc Mechanical Rate 12 FiO2 50.0 Tidal Volume 500 PEEP 8 Sodium 134 Potassium 3.5 L Chloride 99 Carbon Dioxide 25 Anion Gap 14 BUN 35 H Creatinine 1.5 Est GFR ( Amer) 57 Est GFR (Non-Af Amer) 47 Random Glucose 103 Calcium 8.4 L Magnesium 1.8 Total Bilirubin 2.2 H AST 54 ALT 36 Alkaline Phosphatase 93 Total Protein 6.6 Albumin 3.7 Globulin 2.9 Albumin/Globulin Ratio 1.3 Procalcitonin Ur Random Sodium 111 Ur Random Potassium 14.0 03/21/17 03/21/17 06:06 06:06 WBC 14.3 H RBC 3.39 L Hgb 8.2 L Hct 25.5 L MCV 75.4 L MCH 24.3 L MCHC 32.2 L RDW 19.0 H Plt Count 231 MPV 8.5 Neut % (Auto) 80.1 H Lymph % (Auto) 6.4 L [place] % (Auto) 10.3 H Eos % (Auto) 2.3 Baso % (Auto) 0.9 Neut # 11.5 H Lymph # 0.9 L [place] # 1.5 H Eos # 0.3 Baso # 0.1 Neutrophils % (Manual) 67 Band Neutrophils % 21 H* Lymphocytes % (Manual) 3 L Monocytes % (Manual) 5 Eosinophils % (Manual) 4 Platelet Estimate Normal Hypochromasia (manual) Slight Anisocytosis (manual) Moderate Target Cells Slight Puncture Site pCO2 pO2 HCO3 ABG pH ABG Total CO2 ABG O2 Saturation ABG Base Excess ABG Hemoglobin ABG Carboxyhemoglobin POC ABG HHb (Measured) ABG Methemoglobin Satinder Test A-a O2 Difference Respiratory Index Hgb O2 Saturation Vent Mode Mechanical Rate FiO2 Tidal Volume PEEP Sodium Potassium Chloride Carbon Dioxide Anion Gap BUN Creatinine Est GFR ( Amer) Est GFR (Non-Af Amer) Random Glucose Calcium Magnesium Total Bilirubin AST ALT Alkaline Phosphatase Total Protein Albumin Globulin Albumin/Globulin Ratio Procalcitonin 17.05 H Ur Random Sodium Ur Random Potassium Assessment & Plan (1) Colon cancer Status: Acute (2) JENNY (acute kidney injury) Status: Acute (3) SBO (small bowel obstruction) Status: Acute (4) Dehydration Status: Acute (5) SBO (small bowel obstruction) Status: Acute - Assessment and Plan (Free Text) Plan: Would replete K; follow up lytes Renal US- suggestion of lesions seen on CT scan Change to 1/2NS fluids with K Serial chemistries
--- NOTE | 2017-03-21 12:01 | CP.CCUPN ---
<Luis Kelly - Last Filed: 03/21/17 16:30> CCU Subjective - Physician Review Subjective (Free Text): 03/21/17 12:01 patient see and examined at bedside intubated CPAP trial today will remove A line Tube feeds restarted Lasix given 03/21/17 14:14 plan for extubation today CCU Objective - Vital Signs / Intake & Output Vital Signs (Last 4 hours): Vital Signs Pulse Resp BP Pulse Ox 03/21/17 11:01 94 H 17 152/98 H 100 03/21/17 11:00 97 H 17 100 03/21/17 10:34 171/101 H 03/21/17 10:00 98 H 21 173/101 H 03/21/17 09:42 167/102 H 03/21/17 09:06 96 H 19 167/102 H 100 03/21/17 09:00 96 H 19 164/93 H 99 Intake and Output (Last 8hrs): Intake & Output 03/20/17 03/21/17 03/21/17 22:59 06:59 14:59 Intake Total 682 332 20 Output Total 1850 2745 1485 Balance -1168 -9073 -1465 Weight 203 lb 1 oz 203 lb Intake: Intake, IV Amount 682 332 20 Right Hand 350 left hand #2 300 300 upper midabdomen on-Q 32 32 20 pump Output: Gastric Amount 100 20 Nares 100 20 Drainage 20 Right Lower Abdomen 20 Urine 1850 2600 1465 Urethral (Fox) 1850 2600 1465 Stool 25 - Physical Exam Head: Positive for: Atraumatic, Normocephalic Pupils: Positive for: PERRL Extroacular Muscles: Positive for: EOMI Conjunctiva: Positive for: Normal Mouth: Positive for: Moist Mucous Membranes Neck: Positive for: Normal Range of Motion Respiratory/Chest: Positive for: Clear to Auscultation, Accessory Muscle Use Cardiovascular: Positive for: Regular Rate and Rhythm Abdomen: Positive for: Normal Bowel Sounds. Negative for: Tenderness, Distention, Peritoneal Signs Lower Extremity: Positive for: Other (tvp) Psychiatric: Positive for: Alert, Oriented x 3 - Medications Active Medications: Active Medications Generic Name Dose Route Start Last Admin Trade Name Freq PRN Reason Stop Dose Admin Albuterol/Ipratropium 3 ml 03/18/17 14:00 03/21/17 08:06 Duoneb 3 Mg/0.5 Mg (3 Ml) Ud INH 3 ml RQ6 MARC Administration Enoxaparin Sodium 30 mg 03/18/17 10:00 03/21/17 09:37 Lovenox SC 30 mg DAILY MARC Administration Home Med 0 drop 03/15/17 21:15 03/21/17 09:36 Patient's Own Drops OU 1 drop BID MARC Administration Home Med 0 drop 03/15/17 22:00 03/20/17 21:40 Patient's Own Drops OU 1 drop HS MARC Administration Metronidazole 500 mg in 100 mls @ 100 mls/hr 03/15/17 14:00 03/21/17 05:55 Flagyl IVPB 100 mls/hr Q8 MARC Administration BUPIVACAINE 0.125%/0.9% NACL 600 mls @ 4 mls/hr 03/21/17 09:30 Bupivacaine-Ns 0.125% On-Q [employer] Consultant IJ 03/27/17 15:29 ONCE ONE Potassium Chloride 20 meq in 100 mls @ 50 mls/hr 03/21/17 11:37 Potassium Chloride 20 Meq/100 Ml IVPB 03/21/17 13:36 ONCE ONE Potassium Chloride/Dextrose/Sod Cl 1,000 mls @ 50 mls/hr 03/21/17 11:45 Potassium Chl 20 Meq In D5-1/2ns IV .Q20H [facility] Metoprolol Tartrate 25 mg 03/21/17 10:00 03/21/17 10:34 Lopressor PO 25 mg BID MARC Administration Ondansetron HCl 4 mg 03/15/17 08:52 03/16/17 13:07 Zofran Inj IVP 4 mg Q4H PRN Administration Nausea/Vomiting Pantoprazole Sodium 40 mg 03/17/17 10:00 03/21/17 09:37 Protonix Inj IVP 40 mg DAILY MARC Administration - Patient Studies Lab Studies: Microbiology Studies 03/19/17 15:25 Gram Stain - Final Trachasp Sputum Culture - Final NORMAL ORAL ALBERT 03/19/17 00:15 Blood Culture - Preliminary Blood-Venous NO GROWTH AFTER 48 HOURS 03/19/17 00:30 Blood Culture - Preliminary Blood-Venous NO GROWTH AFTER 48 HOURS 03/15/17 09:44 Blood Culture - Final Blood NO GROWTH AFTER 5 DAYS Gram Stain - Final TEST NOT PERFORMED 03/15/17 09:44 Blood Culture - Final Blood NO GROWTH AFTER 5 DAYS Gram Stain - Final TEST NOT PERFORMED Lab Studies 03/21/17 03/21/17 03/21/17 Range/Units 06:06 06:06 06:06 WBC 14.3 H (4.8-10.8) K/uL RBC 3.39 L (4.40-5.90) Mil/uL Hgb 8.2 L (12.0-18.0) g/dL Hct 25.5 L (35.0-51.0) % MCV 75.4 L (80.0-94.0) fL MCH 24.3 L (27.0-31.0) pg MCHC 32.2 L (33.0-37.0) g/dL RDW 19.0 H (11.5-14.5) % Plt Count 231 (130-400) K/uL MPV 8.5 (7.2-11.7) fL Neut % (Auto) 80.1 H (50.0-75.0) % Lymph % (Auto) 6.4 L (20.0-40.0) % Quay % (Auto) 10.3 H (0.0-10.0) % Eos % (Auto) 2.3 (0.0-4.0) % Baso % (Auto) 0.9 (0.0-2.0) % Neut # 11.5 H (1.8-7.0) K/uL Lymph # 0.9 L (1.0-4.3) K/uL Quay # 1.5 H (0.0-0.8) K/uL Eos # 0.3 (0.0-0.7) K/uL Baso # 0.1 (0.0-0.2) K/uL Neutrophils % (Manual) 67 (50-75) % Band Neutrophils % 21 H* (0-2) % Lymphocytes % (Manual) 3 L (20-40) % Monocytes % (Manual) 5 (0-10) % Eosinophils % (Manual) 4 (0-4) % Platelet Estimate Normal (NORMAL) Hypochromasia (manual) Slight Anisocytosis (manual) Moderate Target Cells Slight Puncture Site pCO2 (35-45) mm/Hg pO2 (80-100) mm/Hg HCO3 (21-28) mmol/L ABG pH (7.35-7.45) ABG Total CO2 (22-28) mmol/L ABG O2 Saturation (95-98) % ABG Base Excess (-2.0-3.0) mmol/L ABG Hemoglobin (11.7-17.4) g/dL ABG Carboxyhemoglobin (0.5-1.5) % POC ABG HHb (Measured) (0.0-5.0) % ABG Methemoglobin (0.0-3.0) % Satinder Test A-a O2 Difference mm/Hg Respiratory Index Hgb O2 Saturation (95.0-98.0) % Vent Mode Mechanical Rate FiO2 % Tidal Volume PEEP Sodium 134 (132-148) mmol/L Potassium 3.5 L (3.6-5.2) mmol/L Chloride 99 (98-107) mmol/L Carbon Dioxide 25 (22-30) mmol/L Anion Gap 14 (10-20) BUN 35 H (9-20) mg/dL Creatinine 1.5 (0.8-1.5) mg/dL Est GFR ( Amer) 57 Est GFR (Non-Af Amer) 47 Random Glucose 103 (75-110) mg/dL Calcium 8.4 L (8.6-10.4) mg/dl Magnesium 1.8 (1.6-2.3) mg/dL Total Bilirubin 2.2 H (0.2-1.3) mg/dL AST 54 (17-59) U/L ALT 36 (21-72) U/L Alkaline Phosphatase 93 (38-126) U/L Total Protein 6.6 (6.3-8.3) g/dL Albumin 3.7 (3.5-5.0) g/dL Globulin 2.9 (2.2-3.9) gm/dL Albumin/Globulin Ratio 1.3 (1.0-2.1) Procalcitonin 17.05 H (0.19-0.49) NG/ML Ur Random Sodium mmol/L Ur Random Potassium mmol/L 03/21/17 03/20/17 Range/Units 05:23 15:35 WBC (4.8-10.8) K/uL RBC (4.40-5.90) Mil/uL Hgb (12.0-18.0) g/dL Hct (35.0-51.0) % MCV (80.0-94.0) fL MCH (27.0-31.0) pg MCHC (33.0-37.0) g/dL RDW (11.5-14.5) % Plt Count (130-400) K/uL MPV (7.2-11.7) fL Neut % (Auto) (50.0-75.0) % Lymph % (Auto) (20.0-40.0) % Quay % (Auto) (0.0-10.0) % Eos % (Auto) (0.0-4.0) % Baso % (Auto) (0.0-2.0) % Neut # (1.8-7.0) K/uL Lymph # (1.0-4.3) K/uL Quay # (0.0-0.8) K/uL Eos # (0.0-0.7) K/uL Baso # (0.0-0.2) K/uL Neutrophils % (Manual) (50-75) % Band Neutrophils % (0-2) % Lymphocytes % (Manual) (20-40) % Monocytes % (Manual) (0-10) % Eosinophils % (Manual) (0-4) % Platelet Estimate (NORMAL) Hypochromasia (manual) Anisocytosis (manual) Target Cells Puncture Site A-line pCO2 41 (35-45) mm/Hg pO2 220 H (80-100) mm/Hg HCO3 25.3 (21-28) mmol/L ABG pH 7.40 (7.35-7.45) ABG Total CO2 26.7 (22-28) mmol/L ABG O2 Saturation 99.5 H (95-98) % ABG Base Excess 0.5 (-2.0-3.0) mmol/L ABG Hemoglobin 9.3 L (11.7-17.4) g/dL ABG Carboxyhemoglobin 1.4 (0.5-1.5) % POC ABG HHb (Measured) 0.5 (0.0-5.0) % ABG Methemoglobin 1.1 (0.0-3.0) % Satinder Test Na A-a O2 Difference 85.0 mm/Hg Respiratory Index 0.4 Hgb O2 Saturation 97.1 (95.0-98.0) % Vent Mode Prvc Mechanical Rate 12 FiO2 50.0 % Tidal Volume 500 PEEP 8 Sodium (132-148) mmol/L Potassium (3.6-5.2) mmol/L Chloride (98-107) mmol/L Carbon Dioxide (22-30) mmol/L Anion Gap (10-20) BUN (9-20) mg/dL Creatinine (0.8-1.5) mg/dL Est GFR ( Amer) Est GFR (Non-Af Amer) Random Glucose (75-110) mg/dL Calcium (8.6-10.4) mg/dl Magnesium (1.6-2.3) mg/dL Total Bilirubin (0.2-1.3) mg/dL AST (17-59) U/L ALT (21-72) U/L Alkaline Phosphatase (38-126) U/L Total Protein (6.3-8.3) g/dL Albumin (3.5-5.0) g/dL Globulin (2.2-3.9) gm/dL Albumin/Globulin Ratio (1.0-2.1) Procalcitonin (0.19-0.49) NG/ML Ur Random Sodium 111 mmol/L Ur Random Potassium 14.0 mmol/L Laboratory Results - last 24 hr 03/20/17 03/21/17 03/21/17 15:35 05:23 06:06 WBC RBC Hgb Hct MCV MCH MCHC RDW Plt Count MPV Neut % (Auto) Lymph % (Auto) Quay % (Auto) Eos % (Auto) Baso % (Auto) Neut # Lymph # Quay # Eos # Baso # Neutrophils % (Manual) Band Neutrophils % Lymphocytes % (Manual) Monocytes % (Manual) Eosinophils % (Manual) Platelet Estimate Hypochromasia (manual) Anisocytosis (manual) Target Cells Puncture Site A-line pCO2 41 pO2 220 H HCO3 25.3 ABG pH 7.40 ABG Total CO2 26.7 ABG O2 Saturation 99.5 H ABG Base Excess 0.5 ABG Hemoglobin 9.3 L ABG Carboxyhemoglobin 1.4 POC ABG HHb (Measured) 0.5 ABG Methemoglobin 1.1 Satinder Test Na A-a O2 Difference 85.0 Respiratory Index 0.4 Hgb O2 Saturation 97.1 Vent Mode Prvc Mechanical Rate 12 FiO2 50.0 Tidal Volume 500 PEEP 8 Sodium 134 Potassium 3.5 L Chloride 99 Carbon Dioxide 25 Anion Gap 14 BUN 35 H Creatinine 1.5 Est GFR ( Amer) 57 Est GFR (Non-Af Amer) 47 Random Glucose 103 Calcium 8.4 L Magnesium 1.8 Total Bilirubin 2.2 H AST 54 ALT 36 Alkaline Phosphatase 93 Total Protein 6.6 Albumin 3.7 Globulin 2.9 Albumin/Globulin Ratio 1.3 Procalcitonin Ur Random Sodium 111 Ur Random Potassium 14.0 03/21/17 03/21/17 06:06 06:06 WBC 14.3 H RBC 3.39 L Hgb 8.2 L Hct 25.5 L MCV 75.4 L MCH 24.3 L MCHC 32.2 L RDW 19.0 H Plt Count 231 MPV 8.5 Neut % (Auto) 80.1 H Lymph % (Auto) 6.4 L Quay % (Auto) 10.3 H Eos % (Auto) 2.3 Baso % (Auto) 0.9 Neut # 11.5 H Lymph # 0.9 L Quay # 1.5 H Eos # 0.3 Baso # 0.1 Neutrophils % (Manual) 67 Band Neutrophils % 21 H* Lymphocytes % (Manual) 3 L Monocytes % (Manual) 5 Eosinophils % (Manual) 4 Platelet Estimate Normal Hypochromasia (manual) Slight Anisocytosis (manual) Moderate Target Cells Slight Puncture Site pCO2 pO2 HCO3 ABG pH ABG Total CO2 ABG O2 Saturation ABG Base Excess ABG Hemoglobin ABG Carboxyhemoglobin POC ABG HHb (Measured) ABG Methemoglobin Satinder Test A-a O2 Difference Respiratory Index Hgb O2 Saturation Vent Mode Mechanical Rate FiO2 Tidal Volume PEEP Sodium Potassium Chloride Carbon Dioxide Anion Gap BUN Creatinine Est GFR ( Amer) Est GFR (Non-Af Amer) Random Glucose Calcium Magnesium Total Bilirubin AST ALT Alkaline Phosphatase Total Protein Albumin Globulin Albumin/Globulin Ratio Procalcitonin 17.05 H Ur Random Sodium Ur Random Potassium Assessment/Plan - Assessment and Plan (Free Text) Assessment: Assessment: 62M s/p hemicolectomy, liver biopsy and postoperative respiratory failure POD# 3. Plan: Neuro: mentating well, dc sedation Pulm: Intubated D/C fentanyl Start morphine PRN for pain Ab.4/41/220/25.3 CPAP trial: PSV 15, peep 5 Repeat abg after CPAP trial ok, plan to extubate Cxray: patchy b/l pulmonary infiltrate worse on L Continue Duoneb, cefepime d/c tigecycline CV: sinus tachycardia Start lopressor 25 PO BID d/c A-line Renal I: 178 mls IV/ O:2165 mls urine, NGT 20mls, MARIBELL drain 20mls 12H Balance: - 2007 mls BUN/Cr: 35/1.5 Renal (Dr. Rivas) Renal US Low K 3.5 Potassium chloride 20meq NS with K d/c lasix Infectious disease: sepsis ID (Dr. Hutchins) WBC: 14.3 Band: 21 Chest xray: patchy b/l pulmonary infiltrate worse on L Procalcitonin: 17.05 Cefepime 100mls/hr IV Q8 Flagyl 500 mg 100mls/hr IV Q8 Hematology: anemia of chronic disease H&H: 8.2/25.5 Plt: 231 hemOnc (Dr. Quiros) Pending liver cytology GI: obstructive colonic mass s/p hemicolectomy, liver biopsy, colostomy POD #3 MARIBELL drain serosanguineous 20cc Colostomy bag brown liquid output Follow liver and sigmoid mass biopsy Jevity 20 cc goal 50 cc Bupivacaine on-Q bull bucker Prophylaxis GI: Protonix 40 IV QD DVT: SCDs, lovenox <Preet Woo - Last Filed: 03/24/17 02:44> CCU Objective - Vital Signs / Intake & Output Vital Signs (Last 4 hours): Vital Signs Temp Pulse Resp BP Pulse Ox 03/24/17 00:00 98.5 F 82 22 98 03/23/17 23:01 110/63 03/23/17 23:00 82 24 98 Intake and Output (Last 8hrs): Intake & Output 03/23/17 03/23/17 03/24/17 14:59 22:59 06:59 Intake Total 738.0 697.0 12 Output Total 415 360 120 Balance 323.0 337.0 -108 Intake: Intake, IV Amount 448.0 317.0 12 right forearm 420.0 285.0 upper midabdomen on-Q 28 32 12 pump Tube Feeding 290 330 0 Other 50 Output: Drainage 40 Right Lower Abdomen 40 Urine 415 320 120 Urethral (Fox) 415 320 120 Other: # Bowel Movements 0 - Medications Active Medications: Active Medications Generic Name Dose Route Start Last Admin Trade Name Freq PRN Reason Stop Dose Admin Albuterol/Ipratropium 3 ml 03/18/17 14:00 03/24/17 01:59 Duoneb 3 Mg/0.5 Mg (3 Ml) Ud INH 3 ml RQ6 MARC Administration Enoxaparin Sodium 30 mg 03/18/17 10:00 03/23/17 10:11 Lovenox SC 30 mg DAILY MARC Administration Home Med 0 drop 03/15/17 21:15 03/23/17 17:29 Patient's Own Drops OU 1 drop BID MARC Administration Home Med 0 drop 03/15/17 22:00 03/23/17 21:15 Patient's Own Drops OU 1 drop HS MARC Administration Metronidazole 500 mg in 100 mls @ 100 mls/hr 03/15/17 14:00 03/23/17 22:25 Flagyl IVPB 100 mls/hr Q8 MARC Administration BUPIVACAINE 0.125%/0.9% NACL 600 mls @ 4 mls/hr 03/21/17 09:30 03/21/17 12:17 Bupivacaine-Ns 0.125% On-Q [employer] Consultant IJ 03/27/17 15:29 4 mls/hr ONCE ONE Administration Cefepime HCl 2 gm in 100 mls @ 100 mls/hr 03/21/17 20:00 03/23/17 20:56 Maxipime Iv 2 Gm Premix IVPB 03/26/17 20:01 100 mls/hr Q8H MARC Administration Azithromycin 500 mg/ Dextrose 250 mls @ 250 mls/hr 03/22/17 10:00 03/23/17 10 :12 IVPB 250 mls/hr DAILY MARC Administration Losartan Potassium 25 mg 03/22/17 12:30 03/23/17 10:10 Cozaar PO 25 mg DAILY MARC Administration Metoprolol Tartrate 25 mg 03/21/17 10:00 03/23/17 17:28 Lopressor PO 25 mg BID MARC Administration Ondansetron HCl 4 mg 03/15/17 08:52 03/16/17 13:07 Zofran Inj IVP 4 mg Q4H PRN Administration Nausea/Vomiting Pantoprazole Sodium 40 mg 03/17/17 10:00 03/23/17 10:11 Protonix Inj IVP 40 mg DAILY MARC Administration - Patient Studies Lab Studies: Microbiology Studies 03/19/17 00:15 Blood Culture - Preliminary Blood-Venous NO GROWTH AFTER 4 DAYS 03/19/17 00:30 Blood Culture - Preliminary Blood-Venous NO GROWTH AFTER 4 DAYS Lab Studies 03/23/17 03/23/17 03/23/17 Range/Units 05:48 05:48 05:48 WBC 23.1 H (4.8-10.8) K/uL RBC 3.86 L (4.40-5.90) Mil/uL Hgb 9.4 L (12.0-18.0) g/dL Hct 28.8 L (35.0-51.0) % MCV 74.6 L (80.0-94.0) fL MCH 24.4 L (27.0-31.0) pg MCHC 32.7 L (33.0-37.0) g/dL RDW 18.9 H (11.5-14.5) % Plt Count 286 (130-400) K/uL MPV 8.6 (7.2-11.7) fL Neut % (Auto) 83.5 H (50.0-75.0) % Lymph % (Auto) 6.2 L (20.0-40.0) % Quay % (Auto) 7.7 (0.0-10.0) % Eos % (Auto) 1.9 (0.0-4.0) % Baso % (Auto) 0.7 (0.0-2.0) % Neut # 19.3 H (1.8-7.0) K/uL Lymph # 1.4 (1.0-4.3) K/uL Quay # 1.8 H (0.0-0.8) K/uL Eos # 0.4 (0.0-0.7) K/uL Baso # 0.2 (0.0-0.2) K/uL Neutrophils % (Manual) 77 H (50-75) % Band Neutrophils % 14 H* (0-2) % Lymphocytes % (Manual) 2 L (20-40) % Reactive Lymphs % 1 H (0-0) % Monocytes % (Manual) 2 (0-10) % Eosinophils % (Manual) 1 (0-4) % Metamyelocytes % 2 H (0-0) % Myelocytes % 1 H (0-0) % Toxic Granulation Present Platelet Estimate Normal (NORMAL) Hypochromasia (manual) Moderate Poikilocytosis (manual Slight Anisocytosis (manual) Moderate Target Cells Moderate Retic Count 0.9 (0.5-1.5) % Puncture Site pCO2 (35-45) mm/Hg pO2 (80-100) mm/Hg HCO3 (21-28) mmol/L ABG pH (7.35-7.45) ABG Total CO2 (22-28) mmol/L ABG O2 Saturation (95-98) % ABG Base Excess (-2.0-3.0) mmol/L ABG Hemoglobin (11.7-17.4) g/dL ABG Carboxyhemoglobin (0.5-1.5) % POC ABG HHb (Measured) (0.0-5.0) % ABG Methemoglobin (0.0-3.0) % Satinder Test A-a O2 Difference mm/Hg Respiratory Index Hgb O2 Saturation (95.0-98.0) % Vent Mode FiO2 % Pressure Support CPAP Sodium 142 (132-148) mmol/L Potassium 3.3 L (3.6-5.2) mmol/L Chloride 105 (98-107) mmol/L Carbon Dioxide 27 (22-30) mmol/L Anion Gap 13 (10-20) BUN 38 H (9-20) mg/dL Creatinine 1.1 (0.8-1.5) mg/dL Est GFR ( Amer) > 60 Est GFR (Non-Af Amer) > 60 Random Glucose 110 (75-110) mg/dL Calcium 8.0 L (8.6-10.4) mg/dl Phosphorus 2.1 L (2.5-4.5) mg/dL Magnesium 1.9 (1.6-2.3) mg/dL Ferritin 362.0 ng/mL Total Bilirubin 1.5 H (0.2-1.3) mg/dL AST 45 (17-59) U/L ALT 26 (21-72) U/L Alkaline Phosphatase 124 (38-126) U/L Total Protein 6.2 L (6.3-8.3) g/dL Albumin 3.1 L (3.5-5.0) g/dL Globulin 3.1 (2.2-3.9) gm/dL Albumin/Globulin Ratio 1.0 (1.0-2.1) Vitamin B12 > 1000 H (239-931) pg/mL Folate 8.8 ng/mL 03/23/17 Range/Units 05:40 WBC (4.8-10.8) K/uL RBC (4.40-5.90) Mil/uL Hgb (12.0-18.0) g/dL Hct (35.0-51.0) % MCV (80.0-94.0) fL MCH (27.0-31.0) pg MCHC (33.0-37.0) g/dL RDW (11.5-14.5) % Plt Count (130-400) K/uL MPV (7.2-11.7) fL Neut % (Auto) (50.0-75.0) % Lymph % (Auto) (20.0-40.0) % Quay % (Auto) (0.0-10.0) % Eos % (Auto) (0.0-4.0) % Baso % (Auto) (0.0-2.0) % Neut # (1.8-7.0) K/uL Lymph # (1.0-4.3) K/uL Quay # (0.0-0.8) K/uL Eos # (0.0-0.7) K/uL Baso # (0.0-0.2) K/uL Neutrophils % (Manual) (50-75) % Band Neutrophils % (0-2) % Lymphocytes % (Manual) (20-40) % Reactive Lymphs % (0-0) % Monocytes % (Manual) (0-10) % Eosinophils % (Manual) (0-4) % Metamyelocytes % (0-0) % Myelocytes % (0-0) % Toxic Granulation Platelet Estimate (NORMAL) Hypochromasia (manual) Poikilocytosis (manual Anisocytosis (manual) Target Cells Retic Count (0.5-1.5) % Puncture Site L r pCO2 31 L (35-45) mm/Hg pO2 141 H (80-100) mm/Hg HCO3 23.5 (21-28) mmol/L ABG pH 7.45 (7.35-7.45) ABG Total CO2 22.5 (22-28) mmol/L ABG O2 Saturation 99.5 H (95-98) % ABG Base Excess -1.9 (-2.0-3.0) mmol/L ABG Hemoglobin 10.2 L (11.7-17.4) g/dL ABG Carboxyhemoglobin 1.6 H (0.5-1.5) % POC ABG HHb (Measured) 0.5 (0.0-5.0) % ABG Methemoglobin 1.1 (0.0-3.0) % Satinder Test Pos A-a O2 Difference 105.0 mm/Hg Respiratory Index 0.7 Hgb O2 Saturation 96.7 (95.0-98.0) % Vent Mode Cpap FiO2 40.0 % Pressure Support 10 CPAP 5 Sodium (132-148) mmol/L Potassium (3.6-5.2) mmol/L Chloride (98-107) mmol/L Carbon Dioxide (22-30) mmol/L Anion Gap (10-20) BUN (9-20) mg/dL Creatinine (0.8-1.5) mg/dL Est GFR ( Amer) Est GFR (Non-Af Amer) Random Glucose (75-110) mg/dL Calcium (8.6-10.4) mg/dl Phosphorus (2.5-4.5) mg/dL Magnesium (1.6-2.3) mg/dL Ferritin ng/mL Total Bilirubin (0.2-1.3) mg/dL AST (17-59) U/L ALT (21-72) U/L Alkaline Phosphatase (38-126) U/L Total Protein (6.3-8.3) g/dL Albumin (3.5-5.0) g/dL Globulin (2.2-3.9) gm/dL Albumin/Globulin Ratio (1.0-2.1) Vitamin B12 (239-931) pg/mL Folate ng/mL Laboratory Results - last 24 hr 03/23/17 03/23/17 03/23/17 05:40 05:48 05:48 WBC 23.1 H RBC 3.86 L Hgb 9.4 L Hct 28.8 L MCV 74.6 L MCH 24.4 L MCHC 32.7 L RDW 18.9 H Plt Count 286 MPV 8.6 Neut % (Auto) 83.5 H Lymph % (Auto) 6.2 L Quay % (Auto) 7.7 Eos % (Auto) 1.9 Baso % (Auto) 0.7 Neut # 19.3 H Lymph # 1.4 Quay # 1.8 H Eos # 0.4 Baso # 0.2 Neutrophils % (Manual) 77 H Band Neutrophils % 14 H* Lymphocytes % (Manual) 2 L Reactive Lymphs % 1 H Monocytes % (Manual) 2 Eosinophils % (Manual) 1 Metamyelocytes % 2 H Myelocytes % 1 H Toxic Granulation Present Platelet Estimate Normal Hypochromasia (manual) Moderate Poikilocytosis (manual Slight Anisocytosis (manual) Moderate Target Cells Moderate Retic Count 0.9 Puncture Site L r pCO2 31 L pO2 141 H HCO3 23.5 ABG pH 7.45 ABG Total CO2 22.5 ABG O2 Saturation 99.5 H ABG Base Excess -1.9 ABG Hemoglobin 10.2 L ABG Carboxyhemoglobin 1.6 H POC ABG HHb (Measured) 0.5 ABG Methemoglobin 1.1 Satinder Test Pos A-a O2 Difference 105.0 Respiratory Index 0.7 Hgb O2 Saturation 96.7 Vent Mode Cpap FiO2 40.0 Pressure Support 10 CPAP 5 Sodium 142 Potassium 3.3 L Chloride 105 Carbon Dioxide 27 Anion Gap 13 BUN 38 H Creatinine 1.1 Est GFR ( Amer) > 60 Est GFR (Non-Af Amer) > 60 Random Glucose 110 Calcium 8.0 L Phosphorus Magnesium Ferritin Total Bilirubin 1.5 H AST 45 ALT 26 Alkaline Phosphatase 124 Total Protein 6.2 L Albumin 3.1 L Globulin 3.1 Albumin/Globulin Ratio 1.0 Vitamin B12 Folate 03/23/17 05:48 WBC RBC Hgb Hct MCV MCH MCHC RDW Plt Count MPV Neut % (Auto) Lymph % (Auto) Quay % (Auto) Eos % (Auto) Baso % (Auto) Neut # Lymph # Quay # Eos # Baso # Neutrophils % (Manual) Band Neutrophils % Lymphocytes % (Manual) Reactive Lymphs % Monocytes % (Manual) Eosinophils % (Manual) Metamyelocytes % Myelocytes % Toxic Granulation Platelet Estimate Hypochromasia (manual) Poikilocytosis (manual Anisocytosis (manual) Target Cells Retic Count Puncture Site pCO2 pO2 HCO3 ABG pH ABG Total CO2 ABG O2 Saturation ABG Base Excess ABG Hemoglobin ABG Carboxyhemoglobin POC ABG HHb (Measured) ABG Methemoglobin Satinder Test A-a O2 Difference Respiratory Index Hgb O2 Saturation Vent Mode FiO2 Pressure Support CPAP Sodium Potassium Chloride Carbon Dioxide Anion Gap BUN Creatinine Est GFR ( Amer) Est GFR (Non-Af Amer) Random Glucose Calcium Phosphorus 2.1 L Magnesium 1.9 Ferritin 362.0 Total Bilirubin AST ALT Alkaline Phosphatase Total Protein Albumin Globulin Albumin/Globulin Ratio Vitamin B12 > 1000 H Folate 8.8 Attending/Attestation - Attestation I have personally seen and examined this patient.: Yes I have fully participated in the care of the patient.: Yes I have reviewed all pertinent clinical information: Yes Notes (Text): 03/24/17 02:44 Agree with the resident notes, discussion was made to during the rounds. Labs reviewed Continue the current treatment
[2017-03-21] MEDS ORDERED: Cefepime 1 GM in Sodium Chloride 0.9% 50 ML IVPB SCH (13:45)
[2017-03-21 14:12] LABS: ARTERIAL BLOOD GAS HCO3 27.2 mmol/L (21-28); ARTERIAL BLOOD GAS HEMOGLOBIN 9.6 g/dL (11.7-17.4); ARTERIAL BLOOD GAS O2 SAT 99.3 % (95-98); ARTERIAL BLOOD GAS PCO2 39 mm/Hg (35-45); ARTERIAL BLOOD GAS PH 7.45 (7.35-7.45); ARTERIAL BLOOD GAS PO2 138 mm/Hg (80-100); ARTERIAL BLOOD GAS TCO2 28.3 mmol/L (22-28)
[2017-03-21] MEDS: Potassium Ch 20mEq in D5-1/2NS 1,000 ML IV SCH (15:19)
--- NOTE | 2017-03-21 17:52 | CP.PCM.PN ---
Subjective - Date & Time of Evaluation Date of Evaluation: 03/21/17 Time of Evaluation: 02:45 - Subjective Subjective: dictated Objective - Vital Signs/Intake and Output Vital Signs (last 24 hours): Temp Pulse Resp BP Pulse Ox 97.6 F 92 H 23 168/103 H 95 03/21/17 12:00 03/21/17 15:00 03/21/17 15:09 03/21/17 17:14 03/21/17 15:00 Intake and Output: 03/21/17 03/21/17 06:59 18:59 Intake Total 698 426 Output Total 3745 9015 Balance -1141 -9064 - Medications Medications: Current Medications Albuterol/Ipratropium (Duoneb 3 Mg/0.5 Mg (3 Ml) Ud) 3 ml INH RQ6 [facility] Last Admin: 03/21/17 13:51 Dose: 3 ml Enoxaparin Sodium (Lovenox) 30 mg SC DAILY [facility] Last Admin: 03/21/17 09:37 Dose: 30 mg Home Med (Patient's Own Drops) 0 drop OU BID [facility] Last Admin: 03/21/17 17:15 Dose: 1 drop Home Med (Patient's Own Drops) 0 drop OU HS [facility] Last Admin: 03/20/17 21:40 Dose: 1 drop Metronidazole (Flagyl) 500 mg in 100 mls @ 100 mls/hr IVPB Q8 [facility] Last Admin: 03/21/17 14:52 Dose: 100 mls/hr BUPIVACAINE 0.125%/0.9% NACL (Bupivacaine-Ns 0.125% On-Q Lube Man) 600 mls @ 4 mls/ hr IJ ONCE ONE Stop: 03/27/17 15:29 Last Admin: 03/21/17 12:17 Dose: 4 mls/hr Potassium Chloride/Dextrose/Sod Cl (Potassium Chl 20 Meq In D5-1/2ns) 1,000 mls @ 50 mls/hr IV .Q20H [facility] Last Admin: 03/21/17 15:19 Dose: 50 mls/hr Cefepime HCl (Maxipime Iv 2 Gm Premix) 2 gm in 100 mls @ 100 mls/hr IVPB Q8H [facility] Stop: 03/26/17 20:01 Metoprolol Tartrate (Lopressor) 25 mg PO BID [facility] Last Admin: 03/21/17 17:14 Dose: 25 mg Ondansetron HCl (Zofran Inj) 4 mg IVP Q4H PRN PRN Reason: Nausea/Vomiting Last Admin: 03/16/17 13:07 Dose: 4 mg Pantoprazole Sodium (Protonix Inj) 40 mg IVP DAILY [facility] Last Admin: 03/21/17 09:37 Dose: 40 mg - Labs Labs: 03/21/17 06:06 03/21/17 06:06 PT 19.4 SECONDS (9.7-12.2) H D 03/17/17 20:14 INR 1.7 D 03/17/17 20:14 APTT 35 SECONDS (21-34) H D 03/17/17 20:14
--- NOTE | 2017-03-21 18:23 | PN ---
DATE: SUBJECTIVE: The patient remains intubated, sedated on the vent. PHYSICAL EXAMINATION: VITAL SIGNS: His last temperature is 97.6 and 87 now, blood pressure 174/98 and saturation 98%. He is intubated. NECK: Supple. LUNGS: Have bilateral rhonchi. HEART: S1, S2 is regular. ABDOMEN: Remains with the surgical dressing. Colostomy is functioning. He also has a MARIBELL drain. EXTREMITIES: Have Venodyne boots on. LABORATORY DATA: His white count is 14.3 today, hemoglobin is 8.2, hematocrit 25.5, platelet count is 231. Bands, however, remained 21, which is unclear why he is postop small bowel obstruction. Chemistry shows creatine is 1.5, BUN is 35. Procalcitonin level is 17.05, so he is still septic. The chest x-ray shows patchy bilateral pulmonary infiltrates, increasing on the left and decreasing on the right, so there are patchy bilateral infiltrates bilaterally. Then, abdominal and pelvic CT has postop changes related to lap colectomy, dilated small bowel suggests small bowel ileus versus partial small bowel obstruction. No evidence of small relation. Small fluid collection anterior to the left femoral vein. Location suggests hematoma. Small amount of intraabdominal ascites and anasarca, bibasilar atelectasis, multiple pulmonary nodules and multiple liver masses suggesting metastatic. ASSESSMENT AND PLAN: So the patient is on antibiotics. Prognosis is guarded. We will follow. Has severe bandemia and maybe metastatic cancer. Cadence Hutchins MD
[2017-03-21] MEDS ORDERED: Nitroglycerin 2% Ointment Foilpak UD TOP ONE (21:45)
--- NOTE | 2017-03-21 21:52 | US ---
EXAM: US Retroperitoneal Limited, Renal EXAM DATE/TIME: 03/21/2017 11:39 AM CLINICAL HISTORY: 62 years old, male; Abnormal findings; Abnormal radiologic finding of the abdomen; Radiologic exam and body structure: CT; Prior surgery; Surgery date: 3-7 days post-operative; Additional info: Renal masses eval TECHNIQUE: Real-time ultrasound of the retroperitoneum (limited) with image documentation. COMPARISON: CT - ABD PELVIS W/O PO OR IV CONT 2017-03-20 17:29; CT abdomen pelvis 03/15/17 FINDINGS: Right kidney: Right kidney measures approximately 12.5 x 5.7 x 5.2 cm.There is no pelvocaliectasis. There are no renal masses. There are 2 small renal cysts, 7 x 6 x 7 millimeters, 5 x 5 x 7 mm. Left kidney: Left kidney measures approximately 12 x 6.8 by 6.2 cm. There are no focal renal masses.There is no pelvocaliectasis. Bladder: Urinary bladder is almost empty. There is a Fox catheter. Free fluid: There is trace fluid in the right upper quadrant. Other findings: Liver is diffusely heterogeneous with multiple masses. IMPRESSION: Normal size kidneys, small right renal cysts, no solid renal masses; hepatic metastases
[2017-03-21] MEDS: TRAVATAN OU SCH (21:56)
--- NOTE | 2017-03-21 23:41 | CARD ---
APPROVED REPORT EKG Measurement Heart [id number] <Conclusion> Sinus tachycardia Low voltage QRS Nonspecific T wave abnormality Abnormal ECG
[2017-03-22] MEDS: Albuterol-Ipratrop 3 mg / 0.5 (3 ml) UD INH SCH ×4 (01:41→20:05)
[2017-03-22] MEDS: Cefepime IV 2 gm in Dextrose 2 GM/100 ML BAG IVPB SCH ×3 (03:25→19:36)
[2017-03-22 05:37] LABS: ARTERIAL BLOOD GAS HCO3 28.8 mmol/L (21-28); ARTERIAL BLOOD GAS HEMOGLOBIN 10.3 g/dL (11.7-17.4); ARTERIAL BLOOD GAS PCO2 40 mm/Hg (35-45); ARTERIAL BLOOD GAS PH 7.47 (7.35-7.45); ARTERIAL BLOOD GAS PO2 114 mm/Hg (80-100); ARTERIAL BLOOD GAS TCO2 30.3 mmol/L (22-28)
[2017-03-22] MEDS: metroNIDAZOLE IV 500 mg/100 ml 500 MG/100 ML BAG IVPB SCH ×3 (06:35→22:13)
[2017-03-22 06:40] LABS: BASO # 0.1 K/uL (0.0-0.2); BASO % 0.3 % (0.0-2.0); EOS # 0.4 K/uL (0.0-0.7); EOS % 2.2 % (0.0-4.0); HEMOGLOBIN 9.6 g/dL (12.0-18.0); LYMPH # 1.1 K/uL (1.0-4.3); LYMPH % 5.7 % (20.0-40.0); MEAN CELL VOLUME 74.5 fL (80.0-94.0); MEAN CORPUSCULAR HEMOGLOBIN 24.2 pg (27.0-31.0); MEAN CORPUSCULAR HGB CONC 32.5 g/dL (33.0-37.0); MEAN PLATELET VOLUME 8.1 fL (7.2-11.7); NEUT # 16.2 K/uL (1.8-7.0); NEUT % 81.8 % (50.0-75.0); PLATELET COUNT 298 K/uL (130-400); RBC 3.96 Mil/uL (4.40-5.90); RED CELL DISTRIBUTION WIDTH 18.9 % (11.5-14.5); WHITE BLOOD COUNT 19.9 K/uL (4.8-10.8)
[2017-03-22 06:52] LABS: ALB/GLOB RATIO 1.1 (1.0-2.1); ALBUMIN 3.4 g/dL (3.5-5.0); ALT/SGPT 29 U/L (21-72); AST/SGOT 48 U/L (17-59); BLOOD UREA NITROGEN 40 mg/dL (9-20); CALCIUM 8.4 mg/dl (8.6-10.4); GFR AFRICAN-AMERICAN > 60; GFR NON-AFRICAN AMERICAN > 60; MAGNESIUM 1.8 mg/dL (1.6-2.3)
--- NOTE | 2017-03-22 08:06 | CP.PCM.PN ---
Subjective - Date & Time of Evaluation Date of Evaluation: 03/22/17 Time of Evaluation: 07:45 - Subjective Subjective: Patient remains intubated at this time, and is on pressure support/CPAP settings. He is able to tolerate being on pressure support and CPAP settings for the previous 24 hours without any incidents. On exam he still remains very somnolent. He is able to open his eyes. Yesterday he was able to raise his arms bilaterally when I asked him to however today I was not able to get him to do that. He remains on IV antibiotics at this time, his white blood cell count remains significantly elevated with bandemia. The cultures have remained negative at this time. He had a chest x-ray done this morning, pending official read but the left upper lobe appears to be somewhat better than previous when comparing. Objective - Vital Signs/Intake and Output Vital Signs (last 24 hours): Temp Pulse Resp BP Pulse Ox 98.7 F 95 H 19 140/75 99 03/22/17 04:00 03/22/17 07:00 03/22/17 07:00 03/22/17 06:07 03/22/17 07:00 Intake and Output: 03/22/17 03/22/17 06:59 18:59 Intake Total 1298 74 Output Total 800 50 Balance 498 24 - Medications Medications: Current Medications Albuterol/Ipratropium (Duoneb 3 Mg/0.5 Mg (3 Ml) Ud) 3 ml INH RQ6 [facility] Last Admin: 03/22/17 01:41 Dose: 3 ml Enoxaparin Sodium (Lovenox) 30 mg SC DAILY [facility] Last Admin: 03/21/17 09:37 Dose: 30 mg Home Med (Patient's Own Drops) 0 drop OU BID [facility] Last Admin: 03/21/17 17:15 Dose: 1 drop Home Med (Patient's Own Drops) 0 drop OU HS [facility] Last Admin: 03/21/17 21:56 Dose: 1 drop Metronidazole (Flagyl) 500 mg in 100 mls @ 100 mls/hr IVPB Q8 [facility] Last Admin: 03/22/17 06:35 Dose: 100 mls/hr BUPIVACAINE 0.125%/0.9% NACL (Bupivacaine-Ns 0.125% On-Q [employer] Teacher) 600 mls @ 4 mls/ hr IJ ONCE ONE Stop: 03/27/17 15:29 Last Admin: 03/21/17 12:17 Dose: 4 mls/hr Potassium Chloride/Dextrose/Sod Cl (Potassium Chl 20 Meq In D5-1/2ns) 1,000 mls @ 50 mls/hr IV .Q20H [facility] Last Admin: 03/21/17 15:19 Dose: 50 mls/hr Cefepime HCl (Maxipime Iv 2 Gm Premix) 2 gm in 100 mls @ 100 mls/hr IVPB Q8H [facility] Stop: 03/26/17 20:01 Last Admin: 03/22/17 03:25 Dose: 100 mls/hr Metoprolol Tartrate (Lopressor) 25 mg PO BID [facility] Last Admin: 03/21/17 17:14 Dose: 25 mg Ondansetron HCl (Zofran Inj) 4 mg IVP Q4H PRN PRN Reason: Nausea/Vomiting Last Admin: 03/16/17 13:07 Dose: 4 mg Pantoprazole Sodium (Protonix Inj) 40 mg IVP DAILY [facility] Last Admin: 03/21/17 09:37 Dose: 40 mg - Labs Labs: 03/22/17 06:27 03/22/17 06:27 PT 19.4 SECONDS (9.7-12.2) H D 03/17/17 20:14 INR 1.7 D 03/17/17 20:14 APTT 35 SECONDS (21-34) H D 03/17/17 20:14 - Constitutional Appears: Confused, Chronically Ill - ENT Exam ENT Exam: Mucous Membranes Moist - Respiratory Exam Respiratory Exam: Decreased Breath Sounds Additional comments: rales, rhonchi like - Cardiovascular Exam Cardiovascular Exam: REGULAR RHYTHM - GI/Abdominal Exam Additional comments: His colostomy bag with minimal dark brown output Also present as the [place] drain - Neurological Exam Neurological Exam: Awake, CN II-XII Intact. absent: Alert, Altered, Oriented x3 - Skin Skin Exam: Normal Color, Warm Assessment and Plan - Assessment and Plan (Free Text) Assessment: This is a 62 year old male who came to the hospital on 03/15 with abdominal pain , weightloss, no BMs, and also dark emesis. He was determined to have a a 4.6 x 5 x 7 cm mass that was causing obstruction. This same imaging also suggested a metastatic spread of a cancer to lungs and liver as well. He then underwent a flexible sigmoidscopy on 03/16 and the biopsy showed adenocarcinoma. He underwent an exploratory laparotomy and left hemicolectomy and creation of a colostomy. 1. Ventilator dependent respiratory failure 03/22: He tolerated being on CPAP/pressure support settings without incidence overnight hopefully at some point to be extubated 03/21: At this moment is on CPAP/PS settings He has been on IV cefepime, IV tigecyclin, as well as IV flagly The XRAY from today continuing to show infiltrates sedated on MV,urine out is improving 2. Right lower lobe pneumonia 03/22: WBC count remains elevated with bandemia. Continue with IV abx. 03/21: As mentioned above, continue with ventilation, follow CXRAYs, IV abx The cultures remain negative at this moment 3. Colon mass with obstruction, biopsy from 03/16 showing adenocarcinima. 03/21: Now with colostomy. He is S/P POD 3 of exploratory laparotmy with left hemicolectomy and colostomy. He had takedown of splenic flexure, lysis of adhesions, omentectomy. biopsy. GI consult DR Esparza s/p sigmoidoscopy and biopsy follow biopsy report Patient remains Intubated,todays chext x ray with RLL infiltrate follow up django developer recommendation 4. Acute Kidney Injury 03/22: Creatine decreased to 1.2, urine out put 3,500 03/21: Creatine 1.5 today, urine out put was 5,900 over 24hrs 5.Anemia monitor hemoglobin type and screen and follow hemoglobin 6.Leukocytosis with bands,r/o sepsis continue flagyl , cefepime and Tigecycline follow repeat blood culture and trach culture 7.DVT prophylaxis-SCDs GI prophylaxis-Protonix 8.Liver and lung mass Probably colon cancer with metastatic spread to liver and also lung. Overall prognosis prognosis appears poor at this time. Dr Quiros/oncology consult
--- NOTE | 2017-03-22 08:42 | RAD ---
HISTORY: Intubated COMPARISON: 03/21/2017. FINDINGS: Endotracheal tube terminates 3.5 cm proximal to the jhoan. The nasogastric tube terminates in the stomach. LUNGS: There is interval improvement in multifocal airspace disease, worse in the right lower lobe. PLEURA: No significant pleural effusion identified, no pneumothorax apparent. CARDIOVASCULAR: Normal. OSSEOUS STRUCTURES: No significant abnormalities. VISUALIZED UPPER ABDOMEN: Normal. OTHER FINDINGS: None. IMPRESSION: Improving multifocal airspace disease, worse in the right lower lobe. Stable position of the endotracheal and nasogastric tubes.
[2017-03-22 08:52] LABS: BANDS 14 % (0-2); EOSINOPHIL 3 % (0-4); LYMPHOCYTE 5 % (20-40); MONOCYTE 12 % (0-10); NEUTROPHIL 65 % (50-75); PLATELET ESTIMATE NORMAL (NORMAL); REACTIVE LYMPHOCYTES 1 % (0-0); TOTAL CELLS COUNTED 100
[2017-03-22 08:53] LABS: ANISOCYTOSIS SLIGHT; HYPOCHROMIC SLIGHT; MICROCYTOSIS SLIGHT; POIKILOCYTOSIS SLIGHT; POLYCHROMIC SLIGHT; SCHISTOCYTES SLIGHT; TARGET CELLS SLIGHT
[2017-03-22 08:54] LABS: LARGE PLATELETS PRESENT
--- NOTE | 2017-03-22 09:29 | CP.PCM.PN ---
<Hudson Galvan - Last Filed: 03/22/17 09:20> Subjective - Date & Time of Evaluation Date of Evaluation: 03/22/17 Time of Evaluation: 07:30 - Subjective Subjective: General Surgery Pt S&E, NAEO. afebrile. Pt is alert to voice but does not follow commands although, occasionally, he will nod to answer questions. Pt is intubated and on CPAP vent support. Patient responding to some stimuli. Ostomy with 110cc/24 hrs of output. UOP was 3500cc/24 hrs. Objective - Vital Signs/Intake and Output Vital Signs (last 24 hours): Temp Pulse Resp BP Pulse Ox 98.3 F 102 H 23 169/99 H 99 03/22/17 08:00 03/22/17 08:00 03/22/17 08:00 03/22/17 07:58 03/22/17 08:00 Intake and Output: 03/22/17 03/22/17 06:59 18:59 Intake Total 1298 148 Output Total 800 130 Balance 498 18 - Medications Medications: Current Medications Albuterol/Ipratropium (Duoneb 3 Mg/0.5 Mg (3 Ml) Ud) 3 ml INH RQ6 [facility] Last Admin: 03/22/17 08:45 Dose: 3 ml Enoxaparin Sodium (Lovenox) 30 mg SC DAILY [facility] Last Admin: 03/21/17 09:37 Dose: 30 mg Home Med (Patient's Own Drops) 0 drop OU BID [facility] Last Admin: 03/21/17 17:15 Dose: 1 drop Home Med (Patient's Own Drops) 0 drop OU HS [facility] Last Admin: 03/21/17 21:56 Dose: 1 drop Metronidazole (Flagyl) 500 mg in 100 mls @ 100 mls/hr IVPB Q8 [facility] Last Admin: 03/22/17 06:35 Dose: 100 mls/hr BUPIVACAINE 0.125%/0.9% NACL (Bupivacaine-Ns 0.125% On-Q Clinical Neuropsychologist) 600 mls @ 4 mls/ hr IJ ONCE ONE Stop: 03/27/17 15:29 Last Admin: 03/21/17 12:17 Dose: 4 mls/hr Potassium Chloride/Dextrose/Sod Cl (Potassium Chl 20 Meq In D5-1/2ns) 1,000 mls @ 50 mls/hr IV .Q20H [facility] Last Admin: 03/21/17 15:19 Dose: 50 mls/hr Cefepime HCl (Maxipime Iv 2 Gm Premix) 2 gm in 100 mls @ 100 mls/hr IVPB Q8H [facility] Stop: 03/26/17 20:01 Last Admin: 03/22/17 03:25 Dose: 100 mls/hr Metoprolol Tartrate (Lopressor) 25 mg PO BID [facility] Last Admin: 03/21/17 17:14 Dose: 25 mg Ondansetron HCl (Zofran Inj) 4 mg IVP Q4H PRN PRN Reason: Nausea/Vomiting Last Admin: 03/16/17 13:07 Dose: 4 mg Pantoprazole Sodium (Protonix Inj) 40 mg IVP DAILY [facility] Last Admin: 03/21/17 09:37 Dose: 40 mg - Labs Labs: 03/22/17 06:27 03/22/17 06:27 PT 19.4 SECONDS (9.7-12.2) H D 03/17/17 20:14 INR 1.7 D 03/17/17 20:14 APTT 35 SECONDS (21-34) H D 03/17/17 20:14 - Constitutional Appears: No Acute Distress, Other (lethargic) - Head Exam Head Exam: ATRAUMATIC, NORMOCEPHALIC - Eye Exam Eye Exam: EOMI. absent: Scleral icterus - ENT Exam Additional comments: NGT in place ett in place - Respiratory Exam Respiratory Exam: NORMAL BREATHING PATTERN (on vent). absent: Respiratory Distress - Cardiovascular Exam Cardiovascular Exam: RRR - GI/Abdominal Exam GI & Abdominal Exam: Soft. absent: Distended, Guarding, Rebound - Neurological Exam Neurological Exam: Awake. absent: Alert - Skin Skin Exam: Dry, Warm Assessment and Plan - Assessment and Plan (Free Text) Assessment: 62M with stage IV colon cancer s/p colectomy and colostomy for obstructing mass POD#5 Plan: -Continue tube feeds -No sedation -Continue iv antibiotics -Strict I's & O's -Daily CXR -Medical management as per ICU -D/W Dr Maryan Galvan PGY4 <Trace Steinberg - Last Filed: 03/26/17 15:13> Objective - Vital Signs/Intake and Output Vital Signs (last 24 hours): Temp Pulse Resp BP Pulse Ox 97.6 F 88 29 H 143/87 98 03/26/17 04:00 03/26/17 07:02 03/26/17 07:02 03/26/17 10:40 03/26/17 07:00 Intake and Output: 03/26/17 03/26/17 06:59 18:59 Intake Total 1386 104 Output Total 1370 Balance 16 104 - Medications Medications: Current Medications Albuterol/Ipratropium (Duoneb 3 Mg/0.5 Mg (3 Ml) Ud) 3 ml INH RQ6 [facility] Last Admin: 03/26/17 14:36 Dose: 3 ml Benzocaine/Menthol (Cepacol Sore Throat) 1 michael MT Q4 PRN PRN Reason: Sore Throat Last Admin: 03/24/17 09:18 Dose: 1 michael Home Med (Patient's Own Drops) 0 drop OU BID [facility] Last Admin: 03/26/17 10:40 Dose: 1 drop Home Med (Patient's Own Drops) 0 drop OU HS [facility] Last Admin: 03/26/17 00:24 Dose: 1 drop Metronidazole (Flagyl) 500 mg in 100 mls @ 100 mls/hr IVPB Q8 [facility] Last Admin: 03/26/17 06:05 Dose: 100 mls/hr BUPIVACAINE 0.125%/0.9% NACL (Bupivacaine-Ns 0.125% On-Q Clinical Neuropsychologist) 600 mls @ 4 mls/ hr IJ ONCE ONE Stop: 03/27/17 15:29 Last Admin: 03/21/17 12:17 Dose: 4 mls/hr Cefepime HCl (Maxipime Iv 2 Gm Premix) 2 gm in 100 mls @ 100 mls/hr IVPB Q8H [facility] Stop: 03/26/17 20:01 Last Admin: 03/26/17 03:24 Dose: 100 mls/hr Vancomycin/Sodium Chloride (Vancomycin 1 Gm/Ns 200 Ml) 1 gm in 200 mls @ 133.333 mls/hr IVPB Q24H [facility] Stop: 03/29/17 09:01 Last Admin: 03/26/17 10:39 Dose: 133.333 mls/hr Dextrose/Sodium Chloride (Dextrose 5%/0.9% Ns 1000 Ml) 1,000 mls @ 42 mls/hr IV [id number] [facility] Last Admin: 03/26/17 10:39 Dose: 42 mls/hr Losartan Potassium (Cozaar) 25 mg PO DAILY [facility] Last Admin: 03/26/17 10:40 Dose: 25 mg Metoprolol Tartrate (Lopressor) 25 mg PO BID [facility] Last Admin: 03/26/17 10:40 Dose: 25 mg Ondansetron HCl (Zofran Inj) 4 mg IVP Q4H PRN PRN Reason: Nausea/Vomiting Last Admin: 03/16/17 13:07 Dose: 4 mg Pantoprazole Sodium (Protonix Inj) 40 mg IVP DAILY [facility] Last Admin: 03/26/17 10:40 Dose: 40 mg - Labs Labs: 03/26/17 06:11 03/26/17 06:11 PT 19.4 SECONDS (9.7-12.2) H D 03/17/17 20:14 INR 1.7 D 03/17/17 20:14 APTT 35 SECONDS (21-34) H D 03/17/17 20:14 Attending/Attestation - Attestation I have personally seen and examined this patient.: Yes I have fully participated in the care of the patient.: Yes I have reviewed all pertinent clinical information, including history, physical exam and plan: Yes Notes (Text): Pt was seen and examined at bedside Agree with above note and assessment Pt is improving clinically Colostomy is functioning well CT scan of A/P to r/o intraabdominal collection c.w current mx
[2017-03-22] MEDS ORDERED: Potassium Chloride 20 mEq/15 ml LIQ UD PO ONE (09:35)
[2017-03-22] MEDS ORDERED: Piperacill/Tazo 4.5gm in Dex 4.5 GM/100 ML BAG IVPB SCH (10:00)
[2017-03-22] MEDS: Enoxaparin 30 mg Syringe SC SCH (10:02)
--- NOTE | 2017-03-22 11:00 | CP.CCUPN ---
<Luis Kelly - Last Filed: 03/22/17 15:55> CCU Subjective - Physician Review Subjective (Free Text): 03/22/17 15:55 Patient seen and examined at bedside intubated off sedation yet still lethargic follows commands wbc increased but bands are decreasing making good urine WBC most likely secondary to pneumonia CCU Objective - Vital Signs / Intake & Output Vital Signs (Last 4 hours): Vital Signs Temp Pulse Resp BP Pulse Ox 03/22/17 10:01 155/92 H 03/22/17 08:00 98.3 F 102 H 23 99 03/22/17 07:58 102 H 24 169/99 H 99 03/22/17 07:07 97 H 17 157/92 H 99 Intake and Output (Last 8hrs): Intake & Output 03/21/17 03/22/17 03/22/17 22:59 06:59 14:59 Intake Total 922 782 148 Output Total 845 520 130 Balance 77 262 18 Weight 195 lb 8.8 oz Intake: Intake, IV Amount 582 532 108 Right Hand 300 right forearm 250 500 100 upper midabdomen on-Q 32 32 8 pump Tube Feeding 160 160 40 Other 180 90 Output: Drainage 60 60 Right Lower Abdomen 60 60 Urine 685 450 130 Urethral (Fox) 685 450 130 Stool 100 10 - Physical Exam Head: Positive for: Atraumatic, Normocephalic Pupils: Positive for: PERRL Extroacular Muscles: Positive for: EOMI Conjunctiva: Positive for: Normal Mouth: Positive for: Moist Mucous Membranes Neck: Positive for: Normal Range of Motion Respiratory/Chest: Positive for: Clear to Auscultation, Accessory Muscle Use Cardiovascular: Positive for: Regular Rate and Rhythm Abdomen: Positive for: Normal Bowel Sounds. Negative for: Tenderness, Distention, Peritoneal Signs Lower Extremity: Positive for: Other (tvp) Psychiatric: Positive for: Alert, Oriented x 3 - Medications Active Medications: Active Medications Generic Name Dose Route Start Last Admin Trade Name Freq PRN Reason Stop Dose Admin Albuterol/Ipratropium 3 ml 03/18/17 14:00 03/22/17 08:45 Duoneb 3 Mg/0.5 Mg (3 Ml) Ud INH 3 ml RQ6 MARC Administration Enoxaparin Sodium 30 mg 03/18/17 10:00 01/23/18 10:02 Lovenox SC 30 mg DAILY MARC Administration Home Med 0 drop 03/15/17 21:15 03/21/17 17:15 Patient's Own Drops OU 1 drop BID MARC Administration Home Med 0 drop 03/15/17 22:00 03/21/17 21:56 Patient's Own Drops OU 1 drop HS MARC Administration Metronidazole 500 mg in 100 mls @ 100 mls/hr 03/15/17 14:00 03/22/17 06:35 Flagyl IVPB 100 mls/hr Q8 MARC Administration BUPIVACAINE 0.125%/0.9% NACL 600 mls @ 4 mls/hr 03/21/17 09:30 03/21/17 12:17 Bupivacaine-Ns 0.125% On-Q [employer] Specialist IJ 03/27/17 15:29 4 mls/hr ONCE ONE Administration Potassium Chloride/Dextrose/Sod Cl 1,000 mls @ 50 mls/hr 03/21/17 11:45 03/21 15:19 Potassium Chl 20 Meq In D5-1/2ns IV 50 mls/hr .Q20H MARC Administration Cefepime HCl 2 gm in 100 mls @ 100 mls/hr 03/21/17 20:00 03/22/17 03:25 Maxipime Iv 2 Gm Premix IVPB 03/26/17 20:01 100 mls/hr Q8H MARC Administration Azithromycin 500 mg/ Dextrose 250 mls @ 250 mls/hr 03/22/17 10:00 03/22/17 10 :20 IVPB 250 mls/hr DAILY MARC Administration Metoprolol Tartrate 25 mg 03/21/17 10:00 03/22/17 10:01 Lopressor PO 25 mg BID MARC Administration Ondansetron HCl 4 mg 03/15/17 08:52 03/16/17 13:07 Zofran Inj IVP 4 mg Q4H PRN Administration Nausea/Vomiting Pantoprazole Sodium 40 mg 03/17/17 10:00 03/22/17 10:02 Protonix Inj IVP 40 mg DAILY [facility] Administration - Patient Studies Lab Studies: Microbiology Studies 03/19/17 00:15 Blood Culture - Preliminary Blood-Venous NO GROWTH AFTER 3 DAYS 03/19/17 00:30 Blood Culture - Preliminary Blood-Venous NO GROWTH AFTER 3 DAYS 03/19/17 15:25 Gram Stain - Final Trachasp Sputum Culture - Final NORMAL ORAL ALBERT Lab Studies 03/22/17 03/22/17 03/22/17 Range/Units 06:27 06:27 05:07 WBC 19.9 H (4.8-10.8) K/uL RBC 3.96 L (4.40-5.90) Mil/uL Hgb 9.6 L (12.0-18.0) g/dL Hct 29.5 L (35.0-51.0) % MCV 74.5 L (80.0-94.0) fL MCH 24.2 L (27.0-31.0) pg MCHC 32.5 L (33.0-37.0) g/dL RDW 18.9 H (11.5-14.5) % Plt Count 298 (130-400) K/uL MPV 8.1 (7.2-11.7) fL Neut % (Auto) 81.8 H (50.0-75.0) % Lymph % (Auto) 5.7 L (20.0-40.0) % [place] % (Auto) 10.0 (0.0-10.0) % Eos % (Auto) 2.2 (0.0-4.0) % Baso % (Auto) 0.3 (0.0-2.0) % Neut # 16.2 H (1.8-7.0) K/uL Lymph # 1.1 (1.0-4.3) K/uL [place] # 2.0 H (0.0-0.8) K/uL Eos # 0.4 (0.0-0.7) K/uL Baso # 0.1 (0.0-0.2) K/uL Neutrophils % (Manual) 65 (50-75) % Band Neutrophils % 14 H* (0-2) % Lymphocytes % (Manual) 5 L (20-40) % Reactive Lymphs % 1 H (0-0) % Monocytes % (Manual) 12 H (0-10) % Eosinophils % (Manual) 3 (0-4) % Platelet Estimate Normal (NORMAL) Large Platelets Present Polychromasia Slight Hypochromasia (manual) Slight Poikilocytosis (manual Slight Anisocytosis (manual) Slight Microcytosis (manual) Slight Target Cells Slight Schistocytes Slight Puncture Site Rb pCO2 40 (35-45) mm/Hg pO2 114 H (80-100) mm/Hg HCO3 28.8 H (21-28) mmol/L ABG pH 7.47 H (7.35-7.45) ABG Total CO2 30.3 H (22-28) mmol/L ABG O2 Saturation 99.0 H (95-98) % ABG Base Excess 5.0 H (-2.0-3.0) mmol/L ABG Hemoglobin 10.3 L (11.7-17.4) g/dL ABG Carboxyhemoglobin 1.4 (0.5-1.5) % POC ABG HHb (Measured) 1.0 (0.0-5.0) % ABG Methemoglobin 1.1 (0.0-3.0) % Satinder Test Na A-a O2 Difference 121.0 mm/Hg Respiratory Index 1.1 Hgb O2 Saturation 96.5 (95.0-98.0) % Vent Mode Cpap FiO2 40.0 % Pressure Support 12 CPAP 5 Sodium 136 (132-148) mmol/L Potassium 3.6 (3.6-5.2) mmol/L Chloride 100 (98-107) mmol/L Carbon Dioxide 26 (22-30) mmol/L Anion Gap 13 (10-20) BUN 40 H (9-20) mg/dL Creatinine 1.2 (0.8-1.5) mg/dL Est GFR ( Amer) > 60 Est GFR (Non-Af Amer) > 60 Random Glucose 147 H (75-110) mg/dL Calcium 8.4 L (8.6-10.4) mg/dl Phosphorus 2.8 (2.5-4.5) mg/dL Magnesium 1.8 (1.6-2.3) mg/dL Total Bilirubin 1.9 H (0.2-1.3) mg/dL AST 48 (17-59) U/L ALT 29 (21-72) U/L Alkaline Phosphatase 113 (38-126) U/L Total Protein 6.5 (6.3-8.3) g/dL Albumin 3.4 L (3.5-5.0) g/dL Globulin 3.1 (2.2-3.9) gm/dL Albumin/Globulin Ratio 1.1 (1.0-2.1) 03/21/17 Range/Units 14:08 WBC (4.8-10.8) K/uL RBC (4.40-5.90) Mil/uL Hgb (12.0-18.0) g/dL Hct (35.0-51.0) % MCV (80.0-94.0) fL MCH (27.0-31.0) pg MCHC (33.0-37.0) g/dL RDW (11.5-14.5) % Plt Count (130-400) K/uL MPV (7.2-11.7) fL Neut % (Auto) (50.0-75.0) % Lymph % (Auto) (20.0-40.0) % [place] % (Auto) (0.0-10.0) % Eos % (Auto) (0.0-4.0) % Baso % (Auto) (0.0-2.0) % Neut # (1.8-7.0) K/uL Lymph # (1.0-4.3) K/uL [place] # (0.0-0.8) K/uL Eos # (0.0-0.7) K/uL Baso # (0.0-0.2) K/uL Neutrophils % (Manual) (50-75) % Band Neutrophils % (0-2) % Lymphocytes % (Manual) (20-40) % Reactive Lymphs % (0-0) % Monocytes % (Manual) (0-10) % Eosinophils % (Manual) (0-4) % Platelet Estimate (NORMAL) Large Platelets Polychromasia Hypochromasia (manual) Poikilocytosis (manual Anisocytosis (manual) Microcytosis (manual) Target Cells Schistocytes Puncture Site Rb pCO2 39 (35-45) mm/Hg pO2 138 H (80-100) mm/Hg HCO3 27.2 (21-28) mmol/L ABG pH 7.45 (7.35-7.45) ABG Total CO2 28.3 H (22-28) mmol/L ABG O2 Saturation 99.3 H (95-98) % ABG Base Excess 2.9 (-2.0-3.0) mmol/L ABG Hemoglobin 9.6 L (11.7-17.4) g/dL ABG Carboxyhemoglobin 1.5 (0.5-1.5) % POC ABG HHb (Measured) 0.7 (0.0-5.0) % ABG Methemoglobin 1.1 (0.0-3.0) % Satinder Test Na A-a O2 Difference 98.0 mm/Hg Respiratory Index 0.7 Hgb O2 Saturation 96.6 (95.0-98.0) % Vent Mode Cpap FiO2 40.0 % Pressure Support 12 CPAP 5 Sodium (132-148) mmol/L Potassium (3.6-5.2) mmol/L Chloride (98-107) mmol/L Carbon Dioxide (22-30) mmol/L Anion Gap (10-20) BUN (9-20) mg/dL Creatinine (0.8-1.5) mg/dL Est GFR ( Amer) Est GFR (Non-Af Amer) Random Glucose (75-110) mg/dL Calcium (8.6-10.4) mg/dl Phosphorus (2.5-4.5) mg/dL Magnesium (1.6-2.3) mg/dL Total Bilirubin (0.2-1.3) mg/dL AST (17-59) U/L ALT (21-72) U/L Alkaline Phosphatase (38-126) U/L Total Protein (6.3-8.3) g/dL Albumin (3.5-5.0) g/dL Globulin (2.2-3.9) gm/dL Albumin/Globulin Ratio (1.0-2.1) Laboratory Results - last 24 hr 03/21/17 03/22/17 03/22/17 14:08 05:07 06:27 WBC RBC Hgb Hct MCV MCH MCHC RDW Plt Count MPV Neut % (Auto) Lymph % (Auto) [place] % (Auto) Eos % (Auto) Baso % (Auto) Neut # Lymph # [place] # Eos # Baso # Neutrophils % (Manual) Band Neutrophils % Lymphocytes % (Manual) Reactive Lymphs % Monocytes % (Manual) Eosinophils % (Manual) Platelet Estimate Large Platelets Polychromasia Hypochromasia (manual) Poikilocytosis (manual Anisocytosis (manual) Microcytosis (manual) Target Cells Schistocytes Puncture Site Rb Rb pCO2 39 40 pO2 138 H 114 H HCO3 27.2 28.8 H ABG pH 7.45 7.47 H ABG Total CO2 28.3 H 30.3 H ABG O2 Saturation 99.3 H 99.0 H ABG Base Excess 2.9 5.0 H ABG Hemoglobin 9.6 L 10.3 L ABG Carboxyhemoglobin 1.5 1.4 POC ABG HHb (Measured) 0.7 1.0 ABG Methemoglobin 1.1 1.1 Satinder Test Na Na A-a O2 Difference 98.0 121.0 Respiratory Index 0.7 1.1 Hgb O2 Saturation 96.6 96.5 Vent Mode Cpap Cpap FiO2 40.0 40.0 Pressure Support 12 12 CPAP 5 5 Sodium 136 Potassium 3.6 Chloride 100 Carbon Dioxide 26 Anion Gap 13 BUN 40 H Creatinine 1.2 Est GFR ( Amer) > 60 Est GFR (Non-Af Amer) > 60 Random Glucose 147 H Calcium 8.4 L Phosphorus 2.8 Magnesium 1.8 Total Bilirubin 1.9 H AST 48 ALT 29 Alkaline Phosphatase 113 Total Protein 6.5 Albumin 3.4 L Globulin 3.1 Albumin/Globulin Ratio 1.1 03/22/17 06:27 WBC 19.9 H RBC 3.96 L Hgb 9.6 L Hct 29.5 L MCV 74.5 L MCH 24.2 L MCHC 32.5 L RDW 18.9 H Plt Count 298 MPV 8.1 Neut % (Auto) 81.8 H Lymph % (Auto) 5.7 L [place] % (Auto) 10.0 Eos % (Auto) 2.2 Baso % (Auto) 0.3 Neut # 16.2 H Lymph # 1.1 [place] # 2.0 H Eos # 0.4 Baso # 0.1 Neutrophils % (Manual) 65 Band Neutrophils % 14 H* Lymphocytes % (Manual) 5 L Reactive Lymphs % 1 H Monocytes % (Manual) 12 H Eosinophils % (Manual) 3 Platelet Estimate Normal Large Platelets Present Polychromasia Slight Hypochromasia (manual) Slight Poikilocytosis (manual Slight Anisocytosis (manual) Slight Microcytosis (manual) Slight Target Cells Slight Schistocytes Slight Puncture Site pCO2 pO2 HCO3 ABG pH ABG Total CO2 ABG O2 Saturation ABG Base Excess ABG Hemoglobin ABG Carboxyhemoglobin POC ABG HHb (Measured) ABG Methemoglobin Satinder Test A-a O2 Difference Respiratory Index Hgb O2 Saturation Vent Mode FiO2 Pressure Support CPAP Sodium Potassium Chloride Carbon Dioxide Anion Gap BUN Creatinine Est GFR ( Amer) Est GFR (Non-Af Amer) Random Glucose Calcium Phosphorus Magnesium Total Bilirubin AST ALT Alkaline Phosphatase Total Protein Albumin Globulin Albumin/Globulin Ratio Assessment/Plan - Assessment and Plan (Free Text) Assessment: 62M s/p hemicolectomy, liver biopsy and postoperative respiratory failure POD# 4. Plan: Neuro: slow mentation, sedation d/c Pulm: Intubated Ab.47/40/114/28.8 CPAP: PSV 10, peep 5 Plan to extubate Cxray: improving multifocal airspace disease, worse on the right Continue Duoneb, cefepime Start azithromycin CV: sinus tachycardia improved lopressor 25 PO BID Renal: JENNY resolved I: 549 mls IV, 120 tube feed 60 other/ O:320 mls urine, MARIBELL drain 20mls 12H Balance: +409 mls BUN/Cr: 40/1.2 Renal (Dr. Dejesus) Hold off nephrotoxic drugs d/c NS with K Renal US: small right renal cyst and hepatic metastasis, otherwise unremarkable d/c Potassium chloride 20meq Infectious disease: sepsis ID (Dr. Hutchins) WBC: 19.9 Band: 14 Cxray: improving multifocal airspace disease, worse on the right Procalcitonin: 17.05 1/18 Cefepime 100mls/hr IV Q8 Flagyl 500 mg 100mls/hr IV Q8 Start azithromycin 250 mls/hr Hematology: anemia of chronic disease H&H: 9.0/29.5 Plt: 298 hemOnc (Dr. Quiros) Pending liver cytology GI: obstructive colonic mass s/p hemicolectomy, liver biopsy, colostomy POD #4 MARIBELL drain serosanguineous 20cc Colostomy bag brown liquid output Sigmoid biopsy show adenocarcinoma Follow liver biopsy Jevity 20 cc goal 50 cc Bupivacaine on-Q ball point splitter Prophylaxis GI: Protonix 40 IV QD DVT: SCDs, lovenox <Dennis,Andrae S - Last Filed: 03/22/17 18:18> CCU Objective - Vital Signs / Intake & Output Vital Signs (Last 4 hours): Vital Signs Temp Pulse Resp BP Pulse Ox 03/22/17 17:08 159/104 H 03/22/17 17:00 96 H 24 99 03/22/17 16:58 97 H 24 159/104 H 99 03/22/17 16:00 98.8 F 96 H 23 100 03/22/17 15:58 96 H 19 160/107 H 100 03/22/17 15:00 93 H 24 99 03/22/17 14:58 93 H 23 158/97 H 99 Intake and Output (Last 8hrs): Intake & Output 03/22/17 03/22/17 03/22/17 06:59 14:59 22:59 Intake Total 782 907 162 Output Total 520 485 150 Balance 262 422 12 Weight 195 lb 8.8 oz Intake: Intake, IV Amount 532 657 12 right forearm 500 625 upper midabdomen on-Q 32 32 12 pump Tube Feeding 160 190 90 Other 90 60 60 Output: Drainage 60 Right Lower Abdomen 60 Urine 450 485 150 Urethral (Fox) 450 485 150 Stool 10 - Medications Active Medications: Active Medications Generic Name Dose Route Start Last Admin Trade Name Freq PRN Reason Stop Dose Admin Albuterol/Ipratropium 3 ml 03/18/17 14:00 03/22/17 13:42 Duoneb 3 Mg/0.5 Mg (3 Ml) Ud INH 3 ml RQ6 MARC Administration Enoxaparin Sodium 30 mg 03/18/17 10:00 03/22/17 10:02 Lovenox SC 30 mg DAILY MARC Administration Home Med 0 drop 03/15/17 21:15 03/22/17 17:08 Patient's Own Drops OU 1 drop BID MARC Administration Home Med 0 drop 03/15/17 22:00 03/21/17 21:56 Patient's Own Drops OU 1 drop HS MARC Administration Metronidazole 500 mg in 100 mls @ 100 mls/hr 03/15/17 14:00 03/22/17 14:04 Flagyl IVPB 100 mls/hr Q8 MARC Administration BUPIVACAINE 0.125%/0.9% NACL 600 mls @ 4 mls/hr 03/21/17 09:30 03/21/17 12:17 Bupivacaine-Ns 0.125% On-Q [employer] Specialist IJ 03/27/17 15:29 4 mls/hr ONCE ONE Administration Cefepime HCl 2 gm in 100 mls @ 100 mls/hr 03/21/17 20:00 03/22/17 11:45 Maxipime Iv 2 Gm Premix IVPB 03/26/17 20:01 100 mls/hr Q8H MARC Administration Azithromycin 500 mg/ Dextrose 250 mls @ 250 mls/hr 03/22/17 10:00 03/22/17 10 :20 IVPB 250 mls/hr DAILY MARC Administration Losartan Potassium 25 mg 03/22/17 12:30 03/22/17 13:08 Cozaar PO 25 mg DAILY MARC Administration Metoprolol Tartrate 25 mg 03/21/17 10:00 03/22/17 17:08 Lopressor PO 25 mg BID MARC Administration Ondansetron HCl 4 mg 03/15/17 08:52 03/16/17 13:07 Zofran Inj IVP 4 mg Q4H PRN Administration Nausea/Vomiting Pantoprazole Sodium 40 mg 03/17/17 10:00 03/22/17 10:02 Protonix Inj IVP 40 mg DAILY MARC Administration - Patient Studies Lab Studies: Microbiology Studies 03/19/17 00:15 Blood Culture - Preliminary Blood-Venous NO GROWTH AFTER 3 DAYS 03/19/17 00:30 Blood Culture - Preliminary Blood-Venous NO GROWTH AFTER 3 DAYS Lab Studies 03/22/17 03/22/17 03/22/17 Range/Units 09:31 06:27 06:27 WBC 19.9 H (4.8-10.8) K/uL RBC 3.96 L (4.40-5.90) Mil/uL Hgb 9.6 L (12.0-18.0) g/dL Hct 29.5 L (35.0-51.0) % MCV 74.5 L (80.0-94.0) fL MCH 24.2 L (27.0-31.0) pg MCHC 32.5 L (33.0-37.0) g/dL RDW 18.9 H (11.5-14.5) % Plt Count 298 (130-400) K/uL MPV 8.1 (7.2-11.7) fL Neut % (Auto) 81.8 H (50.0-75.0) % Lymph % (Auto) 5.7 L (20.0-40.0) % [place] % (Auto) 10.0 (0.0-10.0) % Eos % (Auto) 2.2 (0.0-4.0) % Baso % (Auto) 0.3 (0.0-2.0) % Neut # 16.2 H (1.8-7.0) K/uL Lymph # 1.1 (1.0-4.3) K/uL [place] # 2.0 H (0.0-0.8) K/uL Eos # 0.4 (0.0-0.7) K/uL Baso # 0.1 (0.0-0.2) K/uL Neutrophils % (Manual) 65 (50-75) % Band Neutrophils % 14 H* (0-2) % Lymphocytes % (Manual) 5 L (20-40) % Reactive Lymphs % 1 H (0-0) % Monocytes % (Manual) 12 H (0-10) % Eosinophils % (Manual) 3 (0-4) % Platelet Estimate Normal (NORMAL) Large Platelets Present Polychromasia Slight Hypochromasia (manual) Slight Poikilocytosis (manual Slight Anisocytosis (manual) Slight Microcytosis (manual) Slight Target Cells Slight Schistocytes Slight Puncture Site pCO2 (35-45) mm/Hg pO2 (80-100) mm/Hg HCO3 (21-28) mmol/L ABG pH (7.35-7.45) ABG Total CO2 (22-28) mmol/L ABG O2 Saturation (95-98) % ABG Base Excess (-2.0-3.0) mmol/L ABG Hemoglobin (11.7-17.4) g/dL ABG Carboxyhemoglobin (0.5-1.5) % POC ABG HHb (Measured) (0.0-5.0) % ABG Methemoglobin (0.0-3.0) % Satinder Test A-a O2 Difference mm/Hg Respiratory Index Hgb O2 Saturation (95.0-98.0) % Vent Mode FiO2 % Pressure Support CPAP Sodium 136 (132-148) mmol/L Potassium 3.6 (3.6-5.2) mmol/L Chloride 100 (98-107) mmol/L Carbon Dioxide 26 (22-30) mmol/L Anion Gap 13 (10-20) BUN 40 H (9-20) mg/dL Creatinine 1.2 (0.8-1.5) mg/dL Est GFR ( Amer) > 60 Est GFR (Non-Af Amer) > 60 Random Glucose 147 H (75-110) mg/dL Calcium 8.4 L (8.6-10.4) mg/dl Phosphorus 2.8 (2.5-4.5) mg/dL Magnesium 1.8 (1.6-2.3) mg/dL Total Bilirubin 1.9 H (0.2-1.3) mg/dL AST 48 (17-59) U/L ALT 29 (21-72) U/L Alkaline Phosphatase 113 (38-126) U/L Total Protein 6.5 (6.3-8.3) g/dL Albumin 3.4 L (3.5-5.0) g/dL Globulin 3.1 (2.2-3.9) gm/dL Albumin/Globulin Ratio 1.1 (1.0-2.1) Ur L.pneumophila Ag Negative (NEGATIVE) 03/22/17 Range/Units 05:07 WBC (4.8-10.8) K/uL RBC (4.40-5.90) Mil/uL Hgb (12.0-18.0) g/dL Hct (35.0-51.0) % MCV (80.0-94.0) fL MCH (27.0-31.0) pg MCHC (33.0-37.0) g/dL RDW (11.5-14.5) % Plt Count (130-400) K/uL MPV (7.2-11.7) fL Neut % (Auto) (50.0-75.0) % Lymph % (Auto) (20.0-40.0) % [place] % (Auto) (0.0-10.0) % Eos % (Auto) (0.0-4.0) % Baso % (Auto) (0.0-2.0) % Neut # (1.8-7.0) K/uL Lymph # (1.0-4.3) K/uL [place] # (0.0-0.8) K/uL Eos # (0.0-0.7) K/uL Baso # (0.0-0.2) K/uL Neutrophils % (Manual) (50-75) % Band Neutrophils % (0-2) % Lymphocytes % (Manual) (20-40) % Reactive Lymphs % (0-0) % Monocytes % (Manual) (0-10) % Eosinophils % (Manual) (0-4) % Platelet Estimate (NORMAL) Large Platelets Polychromasia Hypochromasia (manual) Poikilocytosis (manual Anisocytosis (manual) Microcytosis (manual) Target Cells Schistocytes Puncture Site Rb pCO2 40 (35-45) mm/Hg pO2 114 H (80-100) mm/Hg HCO3 28.8 H (21-28) mmol/L ABG pH 7.47 H (7.35-7.45) ABG Total CO2 30.3 H (22-28) mmol/L ABG O2 Saturation 99.0 H (95-98) % ABG Base Excess 5.0 H (-2.0-3.0) mmol/L ABG Hemoglobin 10.3 L (11.7-17.4) g/dL ABG Carboxyhemoglobin 1.4 (0.5-1.5) % POC ABG HHb (Measured) 1.0 (0.0-5.0) % ABG Methemoglobin 1.1 (0.0-3.0) % Satinder Test Na A-a O2 Difference 121.0 mm/Hg Respiratory Index 1.1 Hgb O2 Saturation 96.5 (95.0-98.0) % Vent Mode Cpap FiO2 40.0 % Pressure Support 12 CPAP 5 Sodium (132-148) mmol/L Potassium (3.6-5.2) mmol/L Chloride (98-107) mmol/L Carbon Dioxide (22-30) mmol/L Anion Gap (10-20) BUN (9-20) mg/dL Creatinine (0.8-1.5) mg/dL Est GFR ( Amer) Est GFR (Non-Af Amer) Random Glucose (75-110) mg/dL Calcium (8.6-10.4) mg/dl Phosphorus (2.5-4.5) mg/dL Magnesium (1.6-2.3) mg/dL Total Bilirubin (0.2-1.3) mg/dL AST (17-59) U/L ALT (21-72) U/L Alkaline Phosphatase (38-126) U/L Total Protein (6.3-8.3) g/dL Albumin (3.5-5.0) g/dL Globulin (2.2-3.9) gm/dL Albumin/Globulin Ratio (1.0-2.1) Ur L.pneumophila Ag (NEGATIVE) Laboratory Results - last 24 hr 03/22/17 03/22/17 03/22/17 05:07 06:27 06:27 WBC 19.9 H RBC 3.96 L Hgb 9.6 L Hct 29.5 L MCV 74.5 L MCH 24.2 L MCHC 32.5 L RDW 18.9 H Plt Count 298 MPV 8.1 Neut % (Auto) 81.8 H Lymph % (Auto) 5.7 L [place] % (Auto) 10.0 Eos % (Auto) 2.2 Baso % (Auto) 0.3 Neut # 16.2 H Lymph # 1.1 [place] # 2.0 H Eos # 0.4 Baso # 0.1 Neutrophils % (Manual) 65 Band Neutrophils % 14 H* Lymphocytes % (Manual) 5 L Reactive Lymphs % 1 H Monocytes % (Manual) 12 H Eosinophils % (Manual) 3 Platelet Estimate Normal Large Platelets Present Polychromasia Slight Hypochromasia (manual) Slight Poikilocytosis (manual Slight Anisocytosis (manual) Slight Microcytosis (manual) Slight Target Cells Slight Schistocytes Slight Puncture Site Rb pCO2 40 pO2 114 H HCO3 28.8 H ABG pH 7.47 H ABG Total CO2 30.3 H ABG O2 Saturation 99.0 H ABG Base Excess 5.0 H ABG Hemoglobin 10.3 L ABG Carboxyhemoglobin 1.4 POC ABG HHb (Measured) 1.0 ABG Methemoglobin 1.1 Satinder Test Na A-a O2 Difference 121.0 Respiratory Index 1.1 Hgb O2 Saturation 96.5 Vent Mode Cpap FiO2 40.0 Pressure Support 12 CPAP 5 Sodium 136 Potassium 3.6 Chloride 100 Carbon Dioxide 26 Anion Gap 13 BUN 40 H Creatinine 1.2 Est GFR ( Amer) > 60 Est GFR (Non-Af Amer) > 60 Random Glucose 147 H Calcium 8.4 L Phosphorus 2.8 Magnesium 1.8 Total Bilirubin 1.9 H AST 48 ALT 29 Alkaline Phosphatase 113 Total Protein 6.5 Albumin 3.4 L Globulin 3.1 Albumin/Globulin Ratio 1.1 Ur L.pneumophila Ag 03/22/17 09:31 WBC RBC Hgb Hct MCV MCH MCHC RDW Plt Count MPV Neut % (Auto) Lymph % (Auto) [place] % (Auto) Eos % (Auto) Baso % (Auto) Neut # Lymph # [place] # Eos # Baso # Neutrophils % (Manual) Band Neutrophils % Lymphocytes % (Manual) Reactive Lymphs % Monocytes % (Manual) Eosinophils % (Manual) Platelet Estimate Large Platelets Polychromasia Hypochromasia (manual) Poikilocytosis (manual Anisocytosis (manual) Microcytosis (manual) Target Cells Schistocytes Puncture Site pCO2 pO2 HCO3 ABG pH ABG Total CO2 ABG O2 Saturation ABG Base Excess ABG Hemoglobin ABG Carboxyhemoglobin POC ABG HHb (Measured) ABG Methemoglobin Satinder Test A-a O2 Difference Respiratory Index Hgb O2 Saturation Vent Mode FiO2 Pressure Support CPAP Sodium Potassium Chloride Carbon Dioxide Anion Gap BUN Creatinine Est GFR ( Amer) Est GFR (Non-Af Amer) Random Glucose Calcium Phosphorus Magnesium Total Bilirubin AST ALT Alkaline Phosphatase Total Protein Albumin Globulin Albumin/Globulin Ratio Ur L.pneumophila Ag Negative Attending/Attestation - Attestation I have personally seen and examined this patient.: Yes I have fully participated in the care of the patient.: Yes I have reviewed all pertinent clinical information: Yes Notes (Text): 03/22/17 18:17 patient seen and examined in the intensive care unit.Case discussed with house staff in the morning rounds. Patient remains intubated tolerating CPAP Patient remains lethargic Continue antibiotics Continue feeding Extubate when patient more responsive
--- NOTE | 2017-03-22 11:18 | CP.PCM.PN ---
Subjective - Date & Time of Evaluation Date of Evaluation: 03/22/17 Time of Evaluation: 11:16 - Subjective Subjective: pt seen and examined remains intubated on tube feeds good uop given lasix yesterday unable to obtain ros, intubated Objective - Vital Signs/Intake and Output Vital Signs (last 24 hours): Temp Pulse Resp BP Pulse Ox 98.3 F 102 H 23 155/92 H 99 03/22/17 08:00 03/22/17 08:00 03/22/17 08:00 03/22/17 10:01 03/22/17 08:00 Intake and Output: 03/22/17 03/22/17 06:59 18:59 Intake Total 1298 148 Output Total 800 130 Balance 498 18 - Medications Medications: Current Medications Albuterol/Ipratropium (Duoneb 3 Mg/0.5 Mg (3 Ml) Ud) 3 ml INH RQ6 [facility] Last Admin: 03/22/17 08:45 Dose: 3 ml Enoxaparin Sodium (Lovenox) 30 mg SC DAILY [facility] Last Admin: 03/22/17 10:02 Dose: 30 mg Home Med (Patient's Own Drops) 0 drop OU BID [facility] Last Admin: 03/21/17 17:15 Dose: 1 drop Home Med (Patient's Own Drops) 0 drop OU HS [facility] Last Admin: 03/21/17 21:56 Dose: 1 drop Metronidazole (Flagyl) 500 mg in 100 mls @ 100 mls/hr IVPB Q8 [facility] Last Admin: 03/22/17 06:35 Dose: 100 mls/hr BUPIVACAINE 0.125%/0.9% NACL (Bupivacaine-Ns 0.125% On-Q [employer]) 600 mls @ 4 mls/ hr IJ ONCE ONE Stop: 03/27/17 15:29 Last Admin: 03/21/17 12:17 Dose: 4 mls/hr Cefepime HCl (Maxipime Iv 2 Gm Premix) 2 gm in 100 mls @ 100 mls/hr IVPB Q8H [facility] Stop: 03/26/17 20:01 Last Admin: 03/22/17 03:25 Dose: 100 mls/hr Azithromycin 500 mg/ Dextrose 250 mls @ 250 mls/hr IVPB DAILY [facility] Last Admin: 03/22/17 10:20 Dose: 250 mls/hr Metoprolol Tartrate (Lopressor) 25 mg PO BID [facility] Last Admin: 03/22/17 10:01 Dose: 25 mg Ondansetron HCl (Zofran Inj) 4 mg IVP Q4H PRN PRN Reason: Nausea/Vomiting Last Admin: 03/16/17 13:07 Dose: 4 mg Pantoprazole Sodium (Protonix Inj) 40 mg IVP DAILY [facility] Last Admin: 03/22/17 10:02 Dose: 40 mg - Labs Labs: 03/22/17 06:27 03/22/17 06:27 PT 19.4 SECONDS (9.7-12.2) H D 03/17/17 20:14 INR 1.7 D 03/17/17 20:14 APTT 35 SECONDS (21-34) H D 03/17/17 20:14 - Constitutional Appears: No Acute Distress, Chronically Ill - Head Exam Head Exam: NORMAL INSPECTION - Eye Exam Eye Exam: Normal appearance Pupil Exam: PERRL - ENT Exam ENT Exam: Normal Exam (ET tube) - Neck Exam Neck Exam: Normal Inspection - Respiratory Exam Respiratory Exam: NORMAL BREATHING PATTERN (mechanical vent sounds. decreased at bases) - Cardiovascular Exam Cardiovascular Exam: REGULAR RHYTHM, RRR - GI/Abdominal Exam GI & Abdominal Exam: Distended, Soft, Hypoactive Bowel Sounds - Extremities Exam Extremities Exam: Normal Inspection Assessment and Plan (1) Ventilator dependence Status: Acute (2) JENNY (acute kidney injury) Status: Acute (3) Metastatic colon cancer to liver Status: Acute (4) SBO (small bowel obstruction) Status: Acute - Assessment and Plan (Free Text) Assessment: resolved JENNY. DC iv fluids may give lasix prn, plan for extubation noted daily chems hold off nephrotoxic meds
[2017-03-22] MEDS: Potassium Ch 20mEq in D5-1/2NS 1,000 ML IV SCH (11:42)
[2017-03-22] MEDS: COMBIGAN OU SCH ×2 (11:44→17:08)
--- NOTE | 2017-03-22 11:55 | CP.PCM.PN ---
<Reema Patel - Last Filed: 03/22/17 15:14> Subjective - Date & Time of Evaluation Date of Evaluation: 03/22/17 Time of Evaluation: 10:00 - Subjective Subjective: PGY 3- Heme/Onc Progress Note- Dr. Quiros's Service: Patient seen and examined at bedside this AM. Patient remains intubated. Although he opens his eyes, he does not follow commands. Unable to obtain ROS. Objective - Vital Signs/Intake and Output Vital Signs (last 24 hours): Temp Pulse Resp BP Pulse Ox 98.3 F 102 H 23 155/92 H 99 03/22/17 08:00 03/22/17 08:00 03/22/17 08:00 03/22/17 10:01 03/22/17 08:00 Intake and Output: 03/22/17 03/22/17 06:59 18:59 Intake Total 1298 148 Output Total 800 130 Balance 498 18 - Medications Medications: Current Medications Albuterol/Ipratropium (Duoneb 3 Mg/0.5 Mg (3 Ml) Ud) 3 ml INH RQ6 [facility] Last Admin: 03/22/17 08:45 Dose: 3 ml Enoxaparin Sodium (Lovenox) 30 mg SC DAILY [facility] Last Admin: 03/22/17 10:02 Dose: 30 mg Home Med (Patient's Own Drops) 0 drop OU BID [facility] Last Admin: 03/22/17 11:44 Dose: 1 drop Home Med (Patient's Own Drops) 0 drop OU HS [facility] Last Admin: 03/21/17 21:56 Dose: 1 drop Metronidazole (Flagyl) 500 mg in 100 mls @ 100 mls/hr IVPB Q8 [facility] Last Admin: 03/22/17 06:35 Dose: 100 mls/hr BUPIVACAINE 0.125%/0.9% NACL (Bupivacaine-Ns 0.125% On-Q [facility]ide) 600 mls @ 4 mls/ hr IJ ONCE ONE Stop: 03/27/17 15:29 Last Admin: 03/21/17 12:17 Dose: 4 mls/hr Cefepime HCl (Maxipime Iv 2 Gm Premix) 2 gm in 100 mls @ 100 mls/hr IVPB Q8H [facility] Stop: 03/26/17 20:01 Last Admin: 03/22/17 11:45 Dose: 100 mls/hr Azithromycin 500 mg/ Dextrose 250 mls @ 250 mls/hr IVPB DAILY [facility] Last Admin: 03/22/17 10:20 Dose: 250 mls/hr Metoprolol Tartrate (Lopressor) 25 mg PO BID [facility] Last Admin: 03/22/17 10:01 Dose: 25 mg Ondansetron HCl (Zofran Inj) 4 mg IVP Q4H PRN PRN Reason: Nausea/Vomiting Last Admin: 03/16/17 13:07 Dose: 4 mg Pantoprazole Sodium (Protonix Inj) 40 mg IVP DAILY [facility] Last Admin: 03/22/17 10:02 Dose: 40 mg - Labs Labs: 03/22/17 06:27 03/22/17 06:27 PT 19.4 SECONDS (9.7-12.2) H D 03/17/17 20:14 INR 1.7 D 03/17/17 20:14 APTT 35 SECONDS (21-34) H D 03/17/17 20:14 - Constitutional Appears: No Acute Distress - Head Exam Head Exam: NORMAL INSPECTION, NORMOCEPHALIC - Eye Exam Eye Exam: Normal appearance - ENT Exam ENT Exam: Mucous Membranes Moist Additional comments: +ETT - Respiratory Exam Additional comments: +coarse breath sounds - Cardiovascular Exam Cardiovascular Exam: REGULAR RHYTHM, +S1, +S2 - GI/Abdominal Exam GI & Abdominal Exam: Soft, Hypoactive Bowel Sounds. absent: Firm Additional comments: +colostomy bag - Extremities Exam Extremities Exam: absent: Full ROM, Pedal Edema - Neurological Exam Neurological Exam: Alert, Awake - Skin Skin Exam: Dry, Warm Assessment and Plan - Assessment and Plan (Free Text) Assessment: 1.Colon mass intubated and sedated s/p left sigmoidoscopy 03/16/17 s/p left hemicolectomy with colostomy 03/17/17 Biopsy of sigmoid colon: +invasive adenocarcinoma F/u biopsies from liver, omentum Recommend dedicated CT of chest with IV contrast CEA elevated- 2590 Radiographic appearance concerning for metastatic disease Further recommendations pending results of all biopsies 2. Anemia Stool OB positive Check retic count, B12, folate, and ferritin 3. Leukocytosis being treated for pneumonia on antibiotics Patient seen and examined during rounds with Dr. Quiros. Recommendations above as per attending. Shanta Patel, PGY 3 <Chip Quiros - Last Filed: 03/22/17 20:59> Objective - Vital Signs/Intake and Output Vital Signs (last 24 hours): Temp Pulse Resp BP Pulse Ox 98.3 F 93 H 21 158/90 H 96 03/22/17 19:57 03/22/17 19:57 03/22/17 19:57 03/22/17 19:57 03/22/17 19:57 Intake and Output: 03/22/17 03/23/17 18:59 06:59 Intake Total 1103 212 Output Total 675 97 Balance 428 115 - Medications Medications: Current Medications Albuterol/Ipratropium (Duoneb 3 Mg/0.5 Mg (3 Ml) Ud) 3 ml INH RQ6 [facility] Last Admin: 03/22/17 20:05 Dose: 3 ml Enoxaparin Sodium (Lovenox) 30 mg SC DAILY [facility] Last Admin: 03/22/17 10:02 Dose: 30 mg Home Med (Patient's Own Drops) 0 drop OU BID [facility] Last Admin: 03/22/17 17:08 Dose: 1 drop Home Med (Patient's Own Drops) 0 drop OU HS [facility] Last Admin: 03/21/17 21:56 Dose: 1 drop Metronidazole (Flagyl) 500 mg in 100 mls @ 100 mls/hr IVPB Q8 [facility] Last Admin: 03/22/17 14:04 Dose: 100 mls/hr BUPIVACAINE 0.125%/0.9% NACL (Bupivacaine-Ns 0.125% On-Q Pathology [facility] Aide) 600 mls @ 4 mls/ hr IJ ONCE ONE Stop: 03/27/17 15:29 Last Admin: 03/21/17 12:17 Dose: 4 mls/hr Cefepime HCl (Maxipime Iv 2 Gm Premix) 2 gm in 100 mls @ 100 mls/hr IVPB Q8H [facility] Stop: 03/26/17 20:01 Last Admin: 03/22/17 19:36 Dose: 100 mls/hr Azithromycin 500 mg/ Dextrose 250 mls @ 250 mls/hr IVPB DAILY [facility] Last Admin: 03/22/17 10:20 Dose: 250 mls/hr Losartan Potassium (Cozaar) 25 mg PO DAILY [facility] Last Admin: 03/22/17 13:08 Dose: 25 mg Metoprolol Tartrate (Lopressor) 25 mg PO BID [facility] Last Admin: 03/22/17 17:08 Dose: 25 mg Ondansetron HCl (Zofran Inj) 4 mg IVP Q4H PRN PRN Reason: Nausea/Vomiting Last Admin: 03/16/17 13:07 Dose: 4 mg Pantoprazole Sodium (Protonix Inj) 40 mg IVP DAILY [facility] Last Admin: 03/22/17 10:02 Dose: 40 mg - Labs Labs: 03/22/17 06:27 03/22/17 06:27 PT 19.4 SECONDS (9.7-12.2) H D 03/17/17 20:14 INR 1.7 D 03/17/17 20:14 APTT 35 SECONDS (21-34) H D 03/17/17 20:14 Assessment and Plan - Assessment and Plan (Free Text) Assessment: Pt seen and examined, agree with residents note.
[2017-03-22 17:53] LABS: LEGIONELLA AG URINE NEGATIVE (NEGATIVE)
[2017-03-22 19:37] LABS: N MENINGITIS ACY/W135 NEGATIVE (NEGATIVE); N MENINGITIS B/ECOLI K1 NEGATIVE (NEGATIVE); STREP PNEUMONIAE NEGATIVE (NEGATIVE); STREPTOCOCCUS B NEGATIVE (NEGATIVE)
[2017-03-22 19:38] LABS: MYCOPLASMA PNEUMONIAE IGM NEGATIVE (NEGATIVE)
[2017-03-22] MEDS: TRAVATAN OU SCH (22:15)
[2017-03-23] MEDS: Albuterol-Ipratrop 3 mg / 0.5 (3 ml) UD INH SCH ×3 (01:09→20:04)
[2017-03-23] MEDS: Cefepime IV 2 gm in Dextrose 2 GM/100 ML BAG IVPB SCH ×3 (03:12→20:56)
[2017-03-23] MEDS: metroNIDAZOLE IV 500 mg/100 ml 500 MG/100 ML BAG IVPB SCH ×3 (05:00→22:25)
[2017-03-23 05:54] LABS: BASO # 0.2 K/uL (0.0-0.2); BASO % 0.7 % (0.0-2.0); EOS # 0.4 K/uL (0.0-0.7); EOS % 1.9 % (0.0-4.0); HEMOGLOBIN 9.4 g/dL (12.0-18.0); LYMPH # 1.4 K/uL (1.0-4.3); LYMPH % 6.2 % (20.0-40.0); MEAN CELL VOLUME 74.6 fL (80.0-94.0); MEAN CORPUSCULAR HEMOGLOBIN 24.4 pg (27.0-31.0); MEAN CORPUSCULAR HGB CONC 32.7 g/dL (33.0-37.0); MEAN PLATELET VOLUME 8.6 fL (7.2-11.7); MONO # 1.8 K/uL (0.0-0.8); MONO % 7.7 % (0.0-10.0); NEUT # 19.3 K/uL (1.8-7.0); NEUT % 83.5 % (50.0-75.0); PLATELET COUNT 286 K/uL (130-400); RBC 3.86 Mil/uL (4.40-5.90); RED CELL DISTRIBUTION WIDTH 18.9 % (11.5-14.5); WHITE BLOOD COUNT 23.1 K/uL (4.8-10.8)
[2017-03-23 06:09] LABS: ALBUMIN 3.1 g/dL (3.5-5.0); ALT/SGPT 26 U/L (21-72); AST/SGOT 45 U/L (17-59); BLOOD UREA NITROGEN 38 mg/dL (9-20); GFR AFRICAN-AMERICAN > 60; GFR NON-AFRICAN AMERICAN > 60
[2017-03-23 06:14] LABS: ABG ALLEN TEST POS; ARTERIAL BLOOD GAS HCO3 23.5 mmol/L (21-28); ARTERIAL BLOOD GAS HEMOGLOBIN 10.2 g/dL (11.7-17.4); ARTERIAL BLOOD GAS O2 SAT 99.5 % (95-98); ARTERIAL BLOOD GAS PCO2 31 mm/Hg (35-45); ARTERIAL BLOOD GAS PH 7.45 (7.35-7.45); ARTERIAL BLOOD GAS PO2 141 mm/Hg (80-100); ARTERIAL BLOOD GAS TCO2 22.5 mmol/L (22-28)
[2017-03-23 06:30] LABS: MAGNESIUM 1.9 mg/dL (1.6-2.3)
[2017-03-23 07:12] LABS: FOLATE 8.8 ng/mL
[2017-03-23 08:06] LABS: ANISOCYTOSIS MODERATE; BANDS 14 % (0-2); EOSINOPHIL 1 % (0-4); HYPOCHROMIC MODERATE; LYMPHOCYTE 2 % (20-40); METAMYELOCYTE 2 % (0-0); MONOCYTE 2 % (0-10); MYELOCYTE 1 % (0-0); NEUTROPHIL 77 % (50-75); PLATELET ESTIMATE NORMAL (NORMAL); POIKILOCYTOSIS SLIGHT; REACTIVE LYMPHOCYTES 1 % (0-0); TARGET CELLS MODERATE; TOTAL CELLS COUNTED 100
[2017-03-23 08:07] LABS: TOXIC GRANULATION PRESENT
--- NOTE | 2017-03-23 08:30 | CP.PCM.PN ---
Subjective - Date & Time of Evaluation Date of Evaluation: 03/23/17 Time of Evaluation: 08:00 - Subjective Subjective: I spoke at length with the patient's [phone], I gave her a long update with the patient's situation. She does NOT want any other family members updated with reguards to the patient' s condition. He remains intubated on CPAP/PS settings at this time. WBC remains very elevated, bands 14 Today he was leathergic. He was able to open eyes with name called however was not able to elevate his arms on command like previous day. Objective - Vital Signs/Intake and Output Vital Signs (last 24 hours): Temp Pulse Resp BP Pulse Ox 98.3 F 93 H 22 117/71 100 03/23/17 04:22 03/23/17 08:00 03/23/17 08:00 03/23/17 07:17 03/23/17 08:00 Intake and Output: 03/23/17 03/23/17 06:59 18:59 Intake Total 908 Output Total 577 Balance 331 - Medications Medications: Current Medications Albuterol/Ipratropium (Duoneb 3 Mg/0.5 Mg (3 Ml) Ud) 3 ml INH RQ6 [facility] Last Admin: 03/23/17 08:02 Dose: 3 ml Enoxaparin Sodium (Lovenox) 30 mg SC DAILY [facility] Last Admin: 03/22/17 10:02 Dose: 30 mg Home Med (Patient's Own Drops) 0 drop OU BID [facility] Last Admin: 03/22/17 17:08 Dose: 1 drop Home Med (Patient's Own Drops) 0 drop OU HS [facility] Last Admin: 03/22/17 22:15 Dose: 1 drop Metronidazole (Flagyl) 500 mg in 100 mls @ 100 mls/hr IVPB Q8 [facility] Last Admin: 03/23/17 05:00 Dose: 100 mls/hr BUPIVACAINE 0.125%/0.9% NACL (Bupivacaine-Ns 0.125% On-Q [employer]) 600 mls @ 4 mls/ hr IJ ONCE ONE Stop: 03/27/17 15:29 Last Admin: 03/21/17 12:17 Dose: 4 mls/hr Cefepime HCl (Maxipime Iv 2 Gm Premix) 2 gm in 100 mls @ 100 mls/hr IVPB Q8H [facility] Stop: 03/26/17 20:01 Last Admin: 03/23/17 03:12 Dose: 100 mls/hr Azithromycin 500 mg/ Dextrose 250 mls @ 250 mls/hr IVPB DAILY [facility] Last Admin: 03/22/17 10:20 Dose: 250 mls/hr Losartan Potassium (Cozaar) 25 mg PO DAILY [facility] Last Admin: 03/22/17 13:08 Dose: 25 mg Metoprolol Tartrate (Lopressor) 25 mg PO BID [facility] Last Admin: 03/22/17 17:08 Dose: 25 mg Ondansetron HCl (Zofran Inj) 4 mg IVP Q4H PRN PRN Reason: Nausea/Vomiting Last Admin: 03/16/17 13:07 Dose: 4 mg Pantoprazole Sodium (Protonix Inj) 40 mg IVP DAILY [facility] Last Admin: 03/22/17 10:02 Dose: 40 mg - Labs Labs: 03/23/17 05:48 03/23/17 05:48 PT 19.4 SECONDS (9.7-12.2) H D 03/17/17 20:14 INR 1.7 D 03/17/17 20:14 APTT 35 SECONDS (21-34) H D 03/17/17 20:14 - Constitutional Appears: Confused, Chronically Ill - ENT Exam ENT Exam: Mucous Membranes Moist Additional comments: Intubated on CPAP/PS settings - Respiratory Exam Respiratory Exam: Decreased Breath Sounds, Rales, Rhonchi - Cardiovascular Exam Cardiovascular Exam: REGULAR RHYTHM - GI/Abdominal Exam Additional comments: Colostomy MARIBELL drain - Neurological Exam Neurological Exam: Altered - Skin Skin Exam: Warm Assessment and Plan - Assessment and Plan (Free Text) Assessment: This is a 62 year old male who came to the hospital on 03/15 with abdominal pain , weightloss, no BMs, and also dark emesis. He was determined to have a a 4.6 x 5 x 7 cm mass that was causing obstruction. This same imaging also suggested a metastatic spread of a cancer to lungs and liver as well. He then underwent a flexible sigmoidscopy on 03/16 and the biopsy showed adenocarcinoma. He underwent an exploratory laparotomy and left hemicolectomy and creation of a colostomy. 03/23: I spoke with patient's and updated her. Prognosis is not good. is not sure about deciding on code status. She is well aware prognosis is poor. 1. Ventilator dependent respiratory failure 03/23: Remains on CPAPA/PS settings, still has elevated WBC. is aware of poor prognosis 03/22: He tolerated being on CPAP/pressure support settings without incidence overnight hopefully at some point to be extubated 03/21: At this moment is on CPAP/PS settings He has been on IV cefepime, IV tigecyclin, as well as IV flagly The XRAY from today continuing to show infiltrates sedated on MV,urine out is improving 2. Right lower lobe pneumonia 03/23: Again high WBC, on Azithromycin, Cefepime, Flagyl. Blood and trach cultures negative 03/22: WBC count remains elevated with bandemia. Continue with IV abx. 03/21: As mentioned above, continue with ventilation, follow CXRAYs, IV abx The cultures remain negative at this moment 3. Colon mass with obstruction, biopsy from 03/16 showing adenocarcinima. 03/21: Now with colostomy. He is S/P POD 3 of exploratory laparotmy with left hemicolectomy and colostomy. He had takedown of splenic flexure, lysis of adhesions, omentectomy. biopsy. GI consult DR Esparza s/p sigmoidoscopy and biopsy follow biopsy report Patient remains Intubated,todays chext x ray with RLL infiltrate follow up technician biological health recommendation 4. Acute Kidney Injury 03/22: Creatine decreased to 1.2, urine out put 3,500 03/21: Creatine 1.5 today, urine out put was 5,900 over 24hrs 5.Anemia monitor hemoglobin type and screen and follow hemoglobin 6.Leukocytosis with bands,r/o sepsis continue flagyl , cefepime and Tigecycline follow repeat blood culture and trach culture 7.DVT prophylaxis-SCDs GI prophylaxis-Protonix 8.Liver and lung mass Probably colon cancer with metastatic spread to liver and also lung. Overall prognosis prognosis appears poor at this time. Dr Quiros/oncology consult
--- NOTE | 2017-03-23 09:51 | RAD ---
HISTORY: Intubated COMPARISON: Chest radiograph dated 03/22/2017 FINDINGS: LUNGS: Mild interval improvement in bilateral multifocal airspace disease. Superimposed pulmonary vascular congestion considered. PLEURA: No significant pleural effusion identified, no pneumothorax apparent. CARDIOVASCULAR: Cardiomediastinal silhouette stably enlarged. OSSEOUS STRUCTURES: Unchanged. VISUALIZED UPPER ABDOMEN: Normal. OTHER FINDINGS: Endotracheal and enteric tubes, unchanged. IMPRESSION: Mild interval improvement bilateral multifocal airspace disease. No other significant interval change.
[2017-03-23] MEDS: Enoxaparin 30 mg Syringe SC SCH (10:11)
[2017-03-23] MEDS: COMBIGAN OU SCH ×2 (10:14→17:29)
[2017-03-23] MEDS ORDERED: Potassium Phosphate 15 MMOLE in Sodium Chloride 0.9% 250 ML IVPB ONE (10:30)
--- NOTE | 2017-03-23 11:16 | CP.CCUPN ---
<Luis Kelly - Last Filed: 03/23/17 15:14> CCU Subjective - Physician Review Subjective (Free Text): 03/23/17 11:15 patient seen and examined at bedside doing well extubated today tolerating it well family at bedside patient more awake and aware CCU Objective - Vital Signs / Intake & Output Vital Signs (Last 4 hours): Vital Signs Temp Pulse Resp BP Pulse Ox 03/23/17 10:11 149/94 H 03/23/17 08:00 98.1 F 93 H 23 100 03/23/17 07:17 92 H 21 117/71 99 Intake and Output (Last 8hrs): Intake & Output 03/22/17 03/23/17 03/23/17 22:59 06:59 14:59 Intake Total 552 552 Output Total 412 355 Balance 140 197 Weight 187 lb 2.759 oz Intake: Intake, IV Amount 232 232 right forearm 200 200 upper midabdomen on-Q 32 32 pump Tube Feeding 260 320 Other 60 Output: Gastric Amount 0 Nares 0 Drainage 40 Right Lower Abdomen 40 Urine 412 295 Urethral (Fox) 412 295 Stool 20 - Physical Exam Head: Positive for: Atraumatic, Normocephalic Pupils: Positive for: PERRL Extroacular Muscles: Positive for: EOMI Conjunctiva: Positive for: Normal Mouth: Positive for: Moist Mucous Membranes Neck: Positive for: Normal Range of Motion Respiratory/Chest: Positive for: Clear to Auscultation, Accessory Muscle Use Cardiovascular: Positive for: Regular Rate and Rhythm Abdomen: Positive for: Normal Bowel Sounds. Negative for: Tenderness, Distention, Peritoneal Signs Lower Extremity: Positive for: Other (tvp) Psychiatric: Positive for: Alert, Oriented x 3 - Medications Active Medications: Active Medications Generic Name Dose Route Start Last Admin Trade Name Freq PRN Reason Stop Dose Admin Albuterol/Ipratropium 3 ml 03/18/17 14:00 03/23/17 08:02 Duoneb 3 Mg/0.5 Mg (3 Ml) Ud INH 3 ml RQ6 MARC Administration Enoxaparin Sodium 30 mg 03/18/17 10:00 03/23/17 10:11 Lovenox SC 30 mg DAILY MARC Administration Home Med 0 drop 03/15/17 21:15 03/23/17 10:14 Patient's Own Drops OU 1 drop BID MARC Administration Home Med 0 drop 03/15/17 22:00 03/22/17 22:15 Patient's Own Drops OU 1 drop HS MARC Administration Metronidazole 500 mg in 100 mls @ 100 mls/hr 03/15/17 14:00 03/23/17 05:00 Flagyl IVPB 100 mls/hr Q8 MARC Administration BUPIVACAINE 0.125%/0.9% NACL 600 mls @ 4 mls/hr 03/21/17 09:30 03/21/17 12:17 Bupivacaine-Ns 0.125% On-Q [employer] IJ 03/27/17 15:29 4 mls/hr ONCE ONE Administration Cefepime HCl 2 gm in 100 mls @ 100 mls/hr 03/21/17 20:00 03/23/17 03:12 Maxipime Iv 2 Gm Premix IVPB 03/26/17 20:01 100 mls/hr Q8H MARC Administration Azithromycin 500 mg/ Dextrose 250 mls @ 250 mls/hr 03/22/17 10:00 03/23/17 10 :12 IVPB 250 mls/hr DAILY MARC Administration Potassium Phosphate 15 mmole/ 255 mls @ 42.5 mls/hr 03/23/17 10:30 Sodium Chloride IVPB 03/23/17 16:29 ONCE ONE Losartan Potassium 25 mg 03/22/17 12:30 03/23/17 10:10 Cozaar PO 25 mg DAILY MARC Administration Metoprolol Tartrate 25 mg 03/21/17 10:00 03/23/17 10:11 Lopressor PO 25 mg BID MARC Administration Ondansetron HCl 4 mg 03/15/17 08:52 03/16/17 13:07 Zofran Inj IVP 4 mg Q4H PRN Administration Nausea/Vomiting Pantoprazole Sodium 40 mg 03/17/17 10:00 03/23/17 10:11 Protonix Inj IVP 40 mg DAILY MARC Administration - Patient Studies Lab Studies: Microbiology Studies 03/19/17 00:15 Blood Culture - Preliminary Blood-Venous NO GROWTH AFTER 4 DAYS 03/19/17 00:30 Blood Culture - Preliminary Blood-Venous NO GROWTH AFTER 4 DAYS 03/22/17 09:31 Gram Stain - Final Trachasp Lab Studies 03/23/17 03/23/17 03/23/17 Range/Units 05:48 05:48 05:48 WBC 23.1 H (4.8-10.8) K/uL RBC 3.86 L (4.40-5.90) Mil/uL Hgb 9.4 L (12.0-18.0) g/dL Hct 28.8 L (35.0-51.0) % MCV 74.6 L (80.0-94.0) fL MCH 24.4 L (27.0-31.0) pg MCHC 32.7 L (33.0-37.0) g/dL RDW 18.9 H (11.5-14.5) % Plt Count 286 (130-400) K/uL MPV 8.6 (7.2-11.7) fL Neut % (Auto) 83.5 H (50.0-75.0) % Lymph % (Auto) 6.2 L (20.0-40.0) % [place] % (Auto) 7.7 (0.0-10.0) % Eos % (Auto) 1.9 (0.0-4.0) % Baso % (Auto) 0.7 (0.0-2.0) % Neut # 19.3 H (1.8-7.0) K/uL Lymph # 1.4 (1.0-4.3) K/uL [place] # 1.8 H (0.0-0.8) K/uL Eos # 0.4 (0.0-0.7) K/uL Baso # 0.2 (0.0-0.2) K/uL Neutrophils % (Manual) 77 H (50-75) % Band Neutrophils % 14 H* (0-2) % Lymphocytes % (Manual) 2 L (20-40) % Reactive Lymphs % 1 H (0-0) % Monocytes % (Manual) 2 (0-10) % Eosinophils % (Manual) 1 (0-4) % Metamyelocytes % 2 H (0-0) % Myelocytes % 1 H (0-0) % Toxic Granulation Present Platelet Estimate Normal (NORMAL) Hypochromasia (manual) Moderate Poikilocytosis (manual Slight Anisocytosis (manual) Moderate Target Cells Moderate Retic Count 0.9 (0.5-1.5) % Puncture Site pCO2 (35-45) mm/Hg pO2 (80-100) mm/Hg HCO3 (21-28) mmol/L ABG pH (7.35-7.45) ABG Total CO2 (22-28) mmol/L ABG O2 Saturation (95-98) % ABG Base Excess (-2.0-3.0) mmol/L ABG Hemoglobin (11.7-17.4) g/dL ABG Carboxyhemoglobin (0.5-1.5) % POC ABG HHb (Measured) (0.0-5.0) % ABG Methemoglobin (0.0-3.0) % Satinder Test A-a O2 Difference mm/Hg Respiratory Index Hgb O2 Saturation (95.0-98.0) % Vent Mode FiO2 % Pressure Support CPAP Sodium 142 (132-148) mmol/L Potassium 3.3 L (3.6-5.2) mmol/L Chloride 105 (98-107) mmol/L Carbon Dioxide 27 (22-30) mmol/L Anion Gap 13 (10-20) BUN 38 H (9-20) mg/dL Creatinine 1.1 (0.8-1.5) mg/dL Est GFR ( Amer) > 60 Est GFR (Non-Af Amer) > 60 Random Glucose 110 (75-110) mg/dL Calcium 8.0 L (8.6-10.4) mg/dl Phosphorus 2.1 L (2.5-4.5) mg/dL Magnesium 1.9 (1.6-2.3) mg/dL Ferritin 362.0 ng/mL Total Bilirubin 1.5 H (0.2-1.3) mg/dL AST 45 (17-59) U/L ALT 26 (21-72) U/L Alkaline Phosphatase 124 (38-126) U/L Total Protein 6.2 L (6.3-8.3) g/dL Albumin 3.1 L (3.5-5.0) g/dL Globulin 3.1 (2.2-3.9) gm/dL Albumin/Globulin Ratio 1.0 (1.0-2.1) Vitamin B12 > 1000 H (239-931) pg/mL Folate 8.8 ng/mL H.influenzae Type B Ag (NEGATIVE) Ur L.pneumophila Ag (NEGATIVE) Mycoplasma pneumon IgM (NEGATIVE) N.meningitidis ACY/W135 (NEGATIVE) N.meningi B/E.coli K1 Ag (NEGATIVE) Group B Strep Antigen (NEGATIVE) S. pneumoniae Antigen (NEGATIVE) 03/23/17 03/22/17 Range/Units 05:40 09:31 WBC (4.8-10.8) K/uL RBC (4.40-5.90) Mil/uL Hgb (12.0-18.0) g/dL Hct (35.0-51.0) % MCV (80.0-94.0) fL MCH (27.0-31.0) pg MCHC (33.0-37.0) g/dL RDW (11.5-14.5) % Plt Count (130-400) K/uL MPV (7.2-11.7) fL Neut % (Auto) (50.0-75.0) % Lymph % (Auto) (20.0-40.0) % [place] % (Auto) (0.0-10.0) % Eos % (Auto) (0.0-4.0) % Baso % (Auto) (0.0-2.0) % Neut # (1.8-7.0) K/uL Lymph # (1.0-4.3) K/uL [place] # (0.0-0.8) K/uL Eos # (0.0-0.7) K/uL Baso # (0.0-0.2) K/uL Neutrophils % (Manual) (50-75) % Band Neutrophils % (0-2) % Lymphocytes % (Manual) (20-40) % Reactive Lymphs % (0-0) % Monocytes % (Manual) (0-10) % Eosinophils % (Manual) (0-4) % Metamyelocytes % (0-0) % Myelocytes % (0-0) % Toxic Granulation Platelet Estimate (NORMAL) Hypochromasia (manual) Poikilocytosis (manual Anisocytosis (manual) Target Cells Retic Count (0.5-1.5) % Puncture Site L r pCO2 31 L (35-45) mm/Hg pO2 141 H (80-100) mm/Hg HCO3 23.5 (21-28) mmol/L ABG pH 7.45 (7.35-7.45) ABG Total CO2 22.5 (22-28) mmol/L ABG O2 Saturation 99.5 H (95-98) % ABG Base Excess -1.9 (-2.0-3.0) mmol/L ABG Hemoglobin 10.2 L (11.7-17.4) g/dL ABG Carboxyhemoglobin 1.6 H (0.5-1.5) % POC ABG HHb (Measured) 0.5 (0.0-5.0) % ABG Methemoglobin 1.1 (0.0-3.0) % Satinder Test Pos A-a O2 Difference 105.0 mm/Hg Respiratory Index 0.7 Hgb O2 Saturation 96.7 (95.0-98.0) % Vent Mode Cpap FiO2 40.0 % Pressure Support 10 CPAP 5 Sodium (132-148) mmol/L Potassium (3.6-5.2) mmol/L Chloride (98-107) mmol/L Carbon Dioxide (22-30) mmol/L Anion Gap (10-20) BUN (9-20) mg/dL Creatinine (0.8-1.5) mg/dL Est GFR ( Amer) Est GFR (Non-Af Amer) Random Glucose (75-110) mg/dL Calcium (8.6-10.4) mg/dl Phosphorus (2.5-4.5) mg/dL Magnesium (1.6-2.3) mg/dL Ferritin ng/mL Total Bilirubin (0.2-1.3) mg/dL AST (17-59) U/L ALT (21-72) U/L Alkaline Phosphatase (38-126) U/L Total Protein (6.3-8.3) g/dL Albumin (3.5-5.0) g/dL Globulin (2.2-3.9) gm/dL Albumin/Globulin Ratio (1.0-2.1) Vitamin B12 (239-931) pg/mL Folate ng/mL H.influenzae Type B Ag Negative (NEGATIVE) Ur L.pneumophila Ag Negative (NEGATIVE) Mycoplasma pneumon IgM Negative (NEGATIVE) N.meningitidis ACY/W135 Negative (NEGATIVE) N.meningi B/E.coli K1 Ag Negative (NEGATIVE) Group B Strep Antigen Negative (NEGATIVE) S. pneumoniae Antigen Negative (NEGATIVE) Laboratory Results - last 24 hr 03/22/17 03/23/1703/23/18 09:31 05:40 05:48 WBC RBC Hgb Hct MCV MCH MCHC RDW Plt Count MPV Neut % (Auto) Lymph % (Auto) [place] % (Auto) Eos % (Auto) Baso % (Auto) Neut # Lymph # [place] # Eos # Baso # Neutrophils % (Manual) Band Neutrophils % Lymphocytes % (Manual) Reactive Lymphs % Monocytes % (Manual) Eosinophils % (Manual) Metamyelocytes % Myelocytes % Toxic Granulation Platelet Estimate Hypochromasia (manual) Poikilocytosis (manual Anisocytosis (manual) Target Cells Retic Count Puncture Site L r pCO2 31 L pO2 141 H HCO3 23.5 ABG pH 7.45 ABG Total CO2 22.5 ABG O2 Saturation 99.5 H ABG Base Excess -1.9 ABG Hemoglobin 10.2 L ABG Carboxyhemoglobin 1.6 H POC ABG HHb (Measured) 0.5 ABG Methemoglobin 1.1 [place]der Test Pos A-a O2 Difference 105.0 Respiratory Index 0.7 Hgb O2 Saturation 96.7 Vent Mode Cpap FiO2 40.0 Pressure Support 10 CPAP 5 Sodium 142 Potassium 3.3 L Chloride 105 Carbon Dioxide 27 Anion Gap 13 BUN 38 H Creatinine 1.1 Est GFR ( Amer) > 60 Est GFR (Non-Af Amer) > 60 Random Glucose 110 Calcium 8.0 L Phosphorus Magnesium Ferritin Total Bilirubin 1.5 H AST 45 ALT 26 Alkaline Phosphatase 124 Total Protein 6.2 L Albumin 3.1 L Globulin 3.1 Albumin/Globulin Ratio 1.0 Vitamin B12 Folate H.influenzae Type B Ag Negative Ur L.pneumophila Ag Negative Mycoplasma pneumon IgM Negative N.meningitidis ACY/W135 Negative N.meningi B/E.coli K1 Ag Negative Group B Strep Antigen Negative S. pneumoniae Antigen Negative 03/23/17 03/23/17 05:48 05:48 WBC 23.1 H RBC 3.86 L Hgb 9.4 L Hct 28.8 L MCV 74.6 L MCH 24.4 L MCHC 32.7 L RDW 18.9 H Plt Count 286 MPV 8.6 Neut % (Auto) 83.5 H Lymph % (Auto) 6.2 L [place] % (Auto) 7.7 Eos % (Auto) 1.9 Baso % (Auto) 0.7 Neut # 19.3 H Lymph # 1.4 [place] # 1.8 H Eos # 0.4 Baso # 0.2 Neutrophils % (Manual) 77 H Band Neutrophils % 14 H* Lymphocytes % (Manual) 2 L Reactive Lymphs % 1 H Monocytes % (Manual) 2 Eosinophils % (Manual) 1 Metamyelocytes % 2 H Myelocytes % 1 H Toxic Granulation Present Platelet Estimate Normal Hypochromasia (manual) Moderate Poikilocytosis (manual Slight Anisocytosis (manual) Moderate Target Cells Moderate Retic Count 0.9 Puncture Site pCO2 pO2 HCO3 ABG pH ABG Total CO2 ABG O2 Saturation ABG Base Excess ABG Hemoglobin ABG Carboxyhemoglobin POC ABG HHb (Measured) ABG Methemoglobin [place]der Test A-a O2 Difference Respiratory Index Hgb O2 Saturation Vent Mode FiO2 Pressure Support CPAP Sodium Potassium Chloride Carbon Dioxide Anion Gap BUN Creatinine Est GFR ( Amer) Est GFR (Non-Af Amer) Random Glucose Calcium Phosphorus 2.1 L Magnesium 1.9 Ferritin 362.0 Total Bilirubin AST ALT Alkaline Phosphatase Total Protein Albumin Globulin Albumin/Globulin Ratio Vitamin B12 > 1000 H Folate 8.8 H.influenzae Type B Ag Ur L.pneumophila Ag Mycoplasma pneumon IgM N.meningitidis ACY/W135 N.meningi B/E.coli K1 Ag Group B Strep Antigen S. pneumoniae Antigen Assessment/Plan - Assessment and Plan (Free Text) Assessment: 62M s/p hemicolectomy, liver biopsy and postoperative respiratory failure POD# 5. Plan: Neuro: mentating well, following commend Extubated Lung: Extubated 45% venti mask Cxray: Mild interval improvement b/l multifocal airspace disease Continue Duoneb, cefepime, azithromycin CV: sinus tachycardia improved lopressor 25 PO BID Renal: JENNY resolved I: 2011mls O:1252mls 12H Balance: +750 mls BUN/Cr: 38/1.1 K: 3.3 Phos: 2.1 One dose potassium phosphate 42.5 mls/hr Renal (Dr. Dejesus) Hold off nephrotoxic drugs Follow Urine culture Infectious disease: sepsis ID (Dr. Hutchins) WBC: 23.1 Band: 14 Cxray: Mild interval improvement b/l multifocal airspace disease Procalcitonin: 17.05 03/21/17 Cefepime 100mls/hr IV Q8 Flagyl 500 mg 100mls/hr IV Q8 azithromycin 250 mls/hr Hematology: anemia of chronic disease H&H: 9.4/28.8 Plt: 286 hemOnc (Dr. 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 GI: Protonix 40 IV QD DVT: SCDs, lovenox <Andrae Collins S - Last Filed: 03/23/17 15:58> CCU Objective - Vital Signs / Intake & Output Vital Signs (Last 4 hours): Vital Signs Temp Pulse Resp BP Pulse Ox 03/23/17 15:18 97 H 33 H 165/92 H 80 L 03/23/17 14:24 95 H 30 H 142/94 H 100 03/23/17 13:17 90 30 H 153/100 H 98 03/23/17 12:18 91 H 23 155/95 H 99 03/23/17 12:00 98.0 F Intake and Output (Last 8hrs): Intake & Output 03/23/17 03/23/17 03/23/17 06:59 14:59 22:59 Intake Total 552 555.0 Output Total 355 350 Balance 197 205.0 Weight 187 lb 2.759 oz Intake: Intake, IV Amount 232 355.0 right forearm 200 335.0 upper midabdomen on-Q 32 20 pump Tube Feeding 320 200 Output: Gastric Amount 0 Nares 0 Drainage 40 Right Lower Abdomen 40 Urine 295 350 Urethral (Fox) 295 350 Stool 20 - Medications Active Medications: Active Medications Generic Name Dose Route Start Last Admin Trade Name Freq PRN Reason Stop Dose Admin Albuterol/Ipratropium 3 ml 03/18/17 14:00 03/23/17 08:02 Duoneb 3 Mg/0.5 Mg (3 Ml) Ud INH 3 ml RQ6 MARC Administration Enoxaparin Sodium 30 mg 03/18/17 10:00 03/23/17 10:11 Lovenox SC 30 mg DAILY MARC Administration Home Med 0 drop 03/15/17 21:15 03/23/17 10:14 Patient's Own Drops OU 1 drop BID MARC Administration Home Med 0 drop 03/15/17 22:00 03/22/17 22:15 Patient's Own Drops OU 1 drop HS MARC Administration Metronidazole 500 mg in 100 mls @ 100 mls/hr 03/15/17 14:00 03/23/17 15:29 Flagyl IVPB 100 mls/hr Q8 MARC Administration BUPIVACAINE 0.125%/0.9% NACL 600 mls @ 4 mls/hr 03/21/17 09:30 03/21/17 12:17 Bupivacaine-Ns 0.125% On-Q [employer] IJ 03/27/17 15:29 4 mls/hr ONCE ONE Administration Cefepime HCl 2 gm in 100 mls @ 100 mls/hr 03/21/17 20:00 03/23/17 12:57 Maxipime Iv 2 Gm Premix IVPB 03/26/17 20:01 100 mls/hr Q8H MARC Administration Azithromycin 500 mg/ Dextrose 250 mls @ 250 mls/hr 03/22/17 10:00 03/23/17 10 :12 IVPB 250 mls/hr DAILY MARC Administration Potassium Phosphate 15 mmole/ 255 mls @ 42.5 mls/hr 03/23/17 10:30 03/23/17 11:34 Sodium Chloride IVPB 03/23/17 16:29 42.5 mls/hr ONCE ONE Administration Losartan Potassium 25 mg 03/22/17 12:30 03/23/17 10:10 Cozaar PO 25 mg DAILY MARC Administration Metoprolol Tartrate 25 mg 03/21/17 10:00 03/23/17 10:11 Lopressor PO 25 mg BID MARC Administration Ondansetron HCl 4 mg 03/15/17 08:52 03/16/17 13:07 Zofran Inj IVP 4 mg Q4H PRN Administration Nausea/Vomiting Pantoprazole Sodium 40 mg 03/17/17 10:00 03/23/17 10:11 Protonix Inj IVP 40 mg DAILY MARC Administration - Patient Studies Lab Studies: Microbiology Studies 03/19/17 00:15 Blood Culture - Preliminary Blood-Venous NO GROWTH AFTER 4 DAYS 03/19/17 00:30 Blood Culture - Preliminary Blood-Venous NO GROWTH AFTER 4 DAYS 03/22/17 09:31 Gram Stain - Final Trachasp Lab Studies 03/23/17 03/23/17 03/23/17 Range/Units 05:48 05:48 05:48 WBC 23.1 H (4.8-10.8) K/uL RBC 3.86 L (4.40-5.90) Mil/uL Hgb 9.4 L (12.0-18.0) g/dL Hct 28.8 L (35.0-51.0) % MCV 74.6 L (80.0-94.0) fL MCH 24.4 L (27.0-31.0) pg MCHC 32.7 L (33.0-37.0) g/dL RDW 18.9 H (11.5-14.5) % Plt Count 286 (130-400) K/uL MPV 8.6 (7.2-11.7) fL Neut % (Auto) 83.5 H (50.0-75.0) % Lymph % (Auto) 6.2 L (20.0-40.0) % [place] % (Auto) 7.7 (0.0-10.0) % Eos % (Auto) 1.9 (0.0-4.0) % Baso % (Auto) 0.7 (0.0-2.0) % Neut # 19.3 H (1.8-7.0) K/uL Lymph # 1.4 (1.0-4.3) K/uL [place] # 1.8 H (0.0-0.8) K/uL Eos # 0.4 (0.0-0.7) K/uL Baso # 0.2 (0.0-0.2) K/uL Neutrophils % (Manual) 77 H (50-75) % Band Neutrophils % 14 H* (0-2) % Lymphocytes % (Manual) 2 L (20-40) % Reactive Lymphs % 1 H (0-0) % Monocytes % (Manual) 2 (0-10) % Eosinophils % (Manual) 1 (0-4) % Metamyelocytes % 2 H (0-0) % Myelocytes % 1 H (0-0) % Toxic Granulation Present Platelet Estimate Normal (NORMAL) Hypochromasia (manual) Moderate Poikilocytosis (manual Slight Anisocytosis (manual) Moderate Target Cells Moderate Retic Count 0.9 (0.5-1.5) % Puncture Site pCO2 (35-45) mm/Hg pO2 (80-100) mm/Hg HCO3 (21-28) mmol/L ABG pH (7.35-7.45) ABG Total CO2 (22-28) mmol/L ABG O2 Saturation (95-98) % ABG Base Excess (-2.0-3.0) mmol/L ABG Hemoglobin (11.7-17.4) g/dL ABG Carboxyhemoglobin (0.5-1.5) % POC ABG HHb (Measured) (0.0-5.0) % ABG Methemoglobin (0.0-3.0) % [place] Test A-a O2 Difference mm/Hg Respiratory Index Hgb O2 Saturation (95.0-98.0) % Vent Mode FiO2 % Pressure Support CPAP Sodium 142 (132-148) mmol/L Potassium 3.3 L (3.6-5.2) mmol/L Chloride 105 (98-107) mmol/L Carbon Dioxide 27 (22-30) mmol/L Anion Gap 13 (10-20) BUN 38 H (9-20) mg/dL Creatinine 1.1 (0.8-1.5) mg/dL Est GFR ( Amer) > 60 Est GFR (Non-Af Amer) > 60 Random Glucose 110 (75-110) mg/dL Calcium 8.0 L (8.6-10.4) mg/dl Phosphorus 2.1 L (2.5-4.5) mg/dL Magnesium 1.9 (1.6-2.3) mg/dL Ferritin 362.0 ng/mL Total Bilirubin 1.5 H (0.2-1.3) mg/dL AST 45 (17-59) U/L ALT 26 (21-72) U/L Alkaline Phosphatase 124 (38-126) U/L Total Protein 6.2 L (6.3-8.3) g/dL Albumin 3.1 L (3.5-5.0) g/dL Globulin 3.1 (2.2-3.9) gm/dL Albumin/Globulin Ratio 1.0 (1.0-2.1) Vitamin B12 > 1000 H (239-931) pg/mL Folate 8.8 ng/mL H.influenzae Type B Ag (NEGATIVE) Ur L.pneumophila Ag (NEGATIVE) Mycoplasma pneumon IgM (NEGATIVE) N.meningitidis ACY/W135 (NEGATIVE) N.meningi B/E.coli K1 Ag (NEGATIVE) Group B Strep Antigen (NEGATIVE) S. pneumoniae Antigen (NEGATIVE) 03/23/17 03/22/17 Range/Units 05:40 09:31 WBC (4.8-10.8) K/uL RBC (4.40-5.90) Mil/uL Hgb (12.0-18.0) g/dL Hct (35.0-51.0) % MCV (80.0-94.0) fL MCH (27.0-31.0) pg MCHC (33.0-37.0) g/dL RDW (11.5-14.5) % Plt Count (130-400) K/uL MPV (7.2-11.7) fL Neut % (Auto) (50.0-75.0) % Lymph % (Auto) (20.0-40.0) % [place] % (Auto) (0.0-10.0) % Eos % (Auto) (0.0-4.0) % Baso % (Auto) (0.0-2.0) % Neut # (1.8-7.0) K/uL Lymph # (1.0-4.3) K/uL [place] # (0.0-0.8) K/uL Eos # (0.0-0.7) K/uL Baso # (0.0-0.2) K/uL Neutrophils % (Manual) (50-75) % Band Neutrophils % (0-2) % Lymphocytes % (Manual) (20-40) % Reactive Lymphs % (0-0) % Monocytes % (Manual) (0-10) % Eosinophils % (Manual) (0-4) % Metamyelocytes % (0-0) % Myelocytes % (0-0) % Toxic Granulation Platelet Estimate (NORMAL) Hypochromasia (manual) Poikilocytosis (manual Anisocytosis (manual) Target Cells Retic Count (0.5-1.5) % Puncture Site L r pCO2 31 L (35-45) mm/Hg pO2 141 H (80-100) mm/Hg HCO3 23.5 (21-28) mmol/L ABG pH 7.45 (7.35-7.45) ABG Total CO2 22.5 (22-28) mmol/L ABG O2 Saturation 99.5 H (95-98) % ABG Base Excess -1.9 (-2.0-3.0) mmol/L ABG Hemoglobin 10.2 L (11.7-17.4) g/dL ABG Carboxyhemoglobin 1.6 H (0.5-1.5) % POC ABG HHb (Measured) 0.5 (0.0-5.0) % ABG Methemoglobin 1.1 (0.0-3.0) % S[place]der Test Pos A-a O2 Difference 105.0 mm/Hg Respiratory Index 0.7 Hgb O2 Saturation 96.7 (95.0-98.0) % Vent Mode Cpap FiO2 40.0 % Pressure Support 10 CPAP 5 Sodium (132-148) mmol/L Potassium (3.6-5.2) mmol/L Chloride (98-107) mmol/L Carbon Dioxide (22-30) mmol/L Anion Gap (10-20) BUN (9-20) mg/dL Creatinine (0.8-1.5) mg/dL Est GFR ( Amer) Est GFR (Non-Af Amer) Random Glucose (75-110) mg/dL Calcium (8.6-10.4) mg/dl Phosphorus (2.5-4.5) mg/dL Magnesium (1.6-2.3) mg/dL Ferritin ng/mL Total Bilirubin (0.2-1.3) mg/dL AST (17-59) U/L ALT (21-72) U/L Alkaline Phosphatase (38-126) U/L Total Protein (6.3-8.3) g/dL Albumin (3.5-5.0) g/dL Globulin (2.2-3.9) gm/dL Albumin/Globulin Ratio (1.0-2.1) Vitamin B12 (239-931) pg/mL Folate ng/mL H.influenzae Type B Ag Negative (NEGATIVE) Ur L.pneumophila Ag Negative (NEGATIVE) Mycoplasma pneumon IgM Negative (NEGATIVE) N.meningitidis ACY/W135 Negative (NEGATIVE) N.meningi B/E.coli K1 Ag Negative (NEGATIVE) Group B Strep Antigen Negative (NEGATIVE) S. pneumoniae Antigen Negative (NEGATIVE) Laboratory Results - last 24 hr 03/22/17 03/23/17 03/23/17 09:31 05:40 05:48 WBC RBC Hgb Hct MCV MCH MCHC RDW Plt Count MPV Neut % (Auto) Lymph % (Auto) [place] % (Auto) Eos % (Auto) Baso % (Auto) Neut # Lymph # [place] # Eos # Baso # Neutrophils % (Manual) Band Neutrophils % Lymphocytes % (Manual) Reactive Lymphs % Monocytes % (Manual) Eosinophils % (Manual) Metamyelocytes % Myelocytes % Toxic Granulation Platelet Estimate Hypochromasia (manual) Poikilocytosis (manual Anisocytosis (manual) Target Cells Retic Count Puncture Site L r pCO2 31 L pO2 141 H HCO3 23.5 ABG pH 7.45 ABG Total CO2 22.5 ABG O2 Saturation 99.5 H ABG Base Excess -1.9 ABG Hemoglobin 10.2 L ABG Carboxyhemoglobin 1.6 H POC ABG HHb (Measured) 0.5 ABG Methemoglobin 1.1 [place] Test Pos A-a O2 Difference 105.0 Respiratory Index 0.7 Hgb O2 Saturation 96.7 Vent Mode Cpap FiO2 40.0 Pressure Support 10 CPAP 5 Sodium 142 Potassium 3.3 L Chloride 105 Carbon Dioxide 27 Anion Gap 13 BUN 38 H Creatinine 1.1 Est GFR ( Amer) > 60 Est GFR (Non-Af Amer) > 60 Random Glucose 110 Calcium 8.0 L Phosphorus Magnesium Ferritin Total Bilirubin 1.5 H AST 45 ALT 26 Alkaline Phosphatase 124 Total Protein 6.2 L Albumin 3.1 L Globulin 3.1 Albumin/Globulin Ratio 1.0 Vitamin B12 Folate H.influenzae Type B Ag Negative Ur L.pneumophila Ag Negative Mycoplasma pneumon IgM Negative N.meningitidis ACY/W135 Negative N.meningi B/E.coli K1 Ag Negative Group B Strep Antigen Negative S. pneumoniae Antigen Negative 03/23/17 03/23/17 05:48 05:48 WBC 23.1 H RBC 3.86 L Hgb 9.4 L Hct 28.8 L MCV 74.6 L MCH 24.4 L MCHC 32.7 L RDW 18.9 H Plt Count 286 MPV 8.6 Neut % (Auto) 83.5 H Lymph % (Auto) 6.2 L [place] % (Auto) 7.7 Eos % (Auto) 1.9 Baso % (Auto) 0.7 Neut # 19.3 H Lymph # 1.4 [place] # 1.8 H Eos # 0.4 Baso # 0.2 Neutrophils % (Manual) 77 H Band Neutrophils % 14 H* Lymphocytes % (Manual) 2 L Reactive Lymphs % 1 H Monocytes % (Manual) 2 Eosinophils % (Manual) 1 Metamyelocytes % 2 H Myelocytes % 1 H Toxic Granulation Present Platelet Estimate Normal Hypochromasia (manual) Moderate Poikilocytosis (manual Slight Anisocytosis (manual) Moderate Target Cells Moderate Retic Count 0.9 Puncture Site pCO2 pO2 HCO3 ABG pH ABG Total CO2 ABG O2 Saturation ABG Base Excess ABG Hemoglobin ABG Carboxyhemoglobin POC ABG HHb (Measured) ABG Methemoglobin Satinder Test A-a O2 Difference Respiratory Index Hgb O2 Saturation Vent Mode FiO2 Pressure Support CPAP Sodium Potassium Chloride Carbon Dioxide Anion Gap BUN Creatinine Est GFR ( Amer) Est GFR (Non-Af Amer) Random Glucose Calcium Phosphorus 2.1 L Magnesium 1.9 Ferritin 362.0 Total Bilirubin AST ALT Alkaline Phosphatase Total Protein Albumin Globulin Albumin/Globulin Ratio Vitamin B12 > 1000 H Folate 8.8 H.influenzae Type B Ag Ur L.pneumophila Ag Mycoplasma pneumon IgM N.meningitidis ACY/W135 N.meningi B/E.coli K1 Ag Group B Strep Antigen S. pneumoniae Antigen Attending/Attestation - Attestation I have personally seen and examined this patient.: Yes I have fully participated in the care of the patient.: Yes I have reviewed all pertinent clinical information: Yes Notes (Text): 03/23/17 15:56 patient seen and examined in the intensive care unit. Patient extubated after weaning trial Being treated for pneumonia BiPAP as needed Continue present treatment
--- NOTE | 2017-03-23 12:38 | CP.PCM.PN ---
Subjective - Date & Time of Evaluation Date of Evaluation: 03/23/17 Time of Evaluation: 12:36 - Subjective Subjective: More alert; no new complaint On GT feeds K, phos low- being repleted JENNY has resoved; UO > 1300ml Objective - Vital Signs/Intake and Output Vital Signs (last 24 hours): Temp Pulse Resp BP Pulse Ox 98.1 F 91 H 23 155/95 H 99 03/23/17 08:00 03/23/17 12:18 03/23/17 12:18 03/23/17 12:18 03/23/17 12:18 Intake and Output: 03/23/17 03/23/17 06:59 18:59 Intake Total 908 555.0 Output Total 577 350 Balance 331 205.0 - Medications Medications: Current Medications Albuterol/Ipratropium (Duoneb 3 Mg/0.5 Mg (3 Ml) Ud) 3 ml INH RQ6 [facility] Last Admin: 03/23/17 08:02 Dose: 3 ml Enoxaparin Sodium (Lovenox) 30 mg SC DAILY [facility] Last Admin: 03/23/17 10:11 Dose: 30 mg Home Med (Patient's Own Drops) 0 drop OU BID [facility] Last Admin: 03/23/17 10:14 Dose: 1 drop Home Med (Patient's Own Drops) 0 drop OU HS [facility] Last Admin: 03/22/17 22:15 Dose: 1 drop Metronidazole (Flagyl) 500 mg in 100 mls @ 100 mls/hr IVPB Q8 [facility] Last Admin: 03/23/17 05:00 Dose: 100 mls/hr BUPIVACAINE 0.125%/0.9% NACL (Bupivacaine-Ns 0.125% On-Q Fabric Worker Fitter) 600 mls @ 4 mls/ hr IJ ONCE ONE Stop: 03/27/17 15:29 Last Admin: 03/21/17 12:17 Dose: 4 mls/hr Cefepime HCl (Maxipime Iv 2 Gm Premix) 2 gm in 100 mls @ 100 mls/hr IVPB Q8H [facility] Stop: 03/26/17 20:01 Last Admin: 03/23/17 03:12 Dose: 100 mls/hr Azithromycin 500 mg/ Dextrose 250 mls @ 250 mls/hr IVPB DAILY [facility] Last Admin: 03/23/17 10:12 Dose: 250 mls/hr Potassium Phosphate 15 mmole/ (Sodium Chloride) 255 mls @ 42.5 mls/hr IVPB ONCE ONE Stop: 03/23/17 16:29 Last Admin: 03/23/17 11:34 Dose: 42.5 mls/hr Losartan Potassium (Cozaar) 25 mg PO DAILY [facility] Last Admin: 03/23/17 10:10 Dose: 25 mg Metoprolol Tartrate (Lopressor) 25 mg PO BID [facility] Last Admin: 03/23/17 10:11 Dose: 25 mg Ondansetron HCl (Zofran Inj) 4 mg IVP Q4H PRN PRN Reason: Nausea/Vomiting Last Admin: 03/16/17 13:07 Dose: 4 mg Pantoprazole Sodium (Protonix Inj) 40 mg IVP DAILY [facility] Last Admin: 03/23/17 10:11 Dose: 40 mg - Labs Labs: 03/23/17 05:48 03/23/17 05:48 PT 19.4 SECONDS (9.7-12.2) H D 03/17/17 20:14 INR 1.7 D 03/17/17 20:14 APTT 35 SECONDS (21-34) H D 03/17/17 20:14 - Constitutional Appears: No Acute Distress, Confused, Chronically Ill - Head Exam Head Exam: ATRAUMATIC, NORMAL INSPECTION - Eye Exam Eye Exam: EOMI, Normal appearance - Neck Exam Neck Exam: Normal Inspection. absent: Tenderness - Respiratory Exam Respiratory Exam: Clear to Ausculation Bilateral, NORMAL BREATHING PATTERN - Cardiovascular Exam Cardiovascular Exam: REGULAR RHYTHM, +S1 - GI/Abdominal Exam GI & Abdominal Exam: Soft. absent: Tenderness - Extremities Exam Extremities Exam: Normal Inspection. absent: Tenderness - Neurological Exam Neurological Exam: Altered, CN II-XII Intact - Skin Skin Exam: Dry, Warm Assessment and Plan (1) Colon cancer Status: Acute (2) JENNY (acute kidney injury) Status: Acute (3) SBO (small bowel obstruction) Status: Acute (4) Dehydration Status: Acute (5) SBO (small bowel obstruction) Status: Acute - Assessment and Plan (Free Text) Plan: agree with GT feeds replete K, phos follow up lytes closely
--- NOTE | 2017-03-23 17:04 | CP.PCM.PN ---
<Hudson Galvan - Last Filed: 03/23/17 16:58> Subjective - Date & Time of Evaluation Date of Evaluation: 03/23/17 Time of Evaluation: 10:30 - Subjective Subjective: General Surgery Pt S&E, NAEO. Per ICU team pt to be extubated today. otherwise doing well, responsive to verbal commands. Objective - Vital Signs/Intake and Output Vital Signs (last 24 hours): Temp Pulse Resp BP Pulse Ox 98.0 F 97 H 33 H 165/92 H 80 L 03/23/17 12:00 03/23/17 15:18 03/23/17 15:18 03/23/17 15:18 03/23/17 15:18 Intake and Output: 03/23/17 03/23/17 06:59 18:59 Intake Total 908 921.0 Output Total 577 510 Balance 331 411.0 - Medications Medications: Current Medications Albuterol/Ipratropium (Duoneb 3 Mg/0.5 Mg (3 Ml) Ud) 3 ml INH RQ6 [facility] Last Admin: 03/23/17 08:02 Dose: 3 ml Enoxaparin Sodium (Lovenox) 30 mg SC DAILY [facility] Last Admin: 03/23/17 10:11 Dose: 30 mg Home Med (Patient's Own Drops) 0 drop OU BID [facility] Last Admin: 03/23/17 10:14 Dose: 1 drop Home Med (Patient's Own Drops) 0 drop OU HS [facility] Last Admin: 03/22/17 22:15 Dose: 1 drop Metronidazole (Flagyl) 500 mg in 100 mls @ 100 mls/hr IVPB Q8 [facility] Last Admin: 03/23/17 15:29 Dose: 100 mls/hr BUPIVACAINE 0.125%/0.9% NACL (Bupivacaine-Ns 0.125% On-Q Army Manager) 600 mls @ 4 mls/ hr IJ ONCE ONE Stop: 03/27/17 15:29 Last Admin: 03/21/17 12:17 Dose: 4 mls/hr Cefepime HCl (Maxipime Iv 2 Gm Premix) 2 gm in 100 mls @ 100 mls/hr IVPB Q8H [facility] Stop: 03/26/17 20:01 Last Admin: 03/23/17 12:57 Dose: 100 mls/hr Azithromycin 500 mg/ Dextrose 250 mls @ 250 mls/hr IVPB DAILY [facility] Last Admin: 03/23/17 10:12 Dose: 250 mls/hr Losartan Potassium (Cozaar) 25 mg PO DAILY [facility] Last Admin: 03/23/17 10:10 Dose: 25 mg Metoprolol Tartrate (Lopressor) 25 mg PO BID [facility] Last Admin: 03/23/17 10:11 Dose: 25 mg Ondansetron HCl (Zofran Inj) 4 mg IVP Q4H PRN PRN Reason: Nausea/Vomiting Last Admin: 03/16/17 13:07 Dose: 4 mg Pantoprazole Sodium (Protonix Inj) 40 mg IVP DAILY [facility] Last Admin: 03/23/17 10:11 Dose: 40 mg - Labs Labs: 03/23/17 05:48 03/23/17 05:48 PT 19.4 SECONDS (9.7-12.2) H D 03/17/17 20:14 INR 1.7 D 03/17/17 20:14 APTT 35 SECONDS (21-34) H D 03/17/17 20:14 - Constitutional Appears: Non-toxic, No Acute Distress - Head Exam Head Exam: ATRAUMATIC, NORMOCEPHALIC - Respiratory Exam Respiratory Exam: NORMAL BREATHING PATTERN (on CPAP vent). absent: Respiratory Distress - GI/Abdominal Exam GI & Abdominal Exam: Soft. absent: Distended, Guarding, Tenderness Additional comments: dressing C/D/I ostomy pink, viable - Neurological Exam Neurological Exam: Alert, Awake - Skin Skin Exam: Dry, Warm Assessment and Plan - Assessment and Plan (Free Text) Assessment: 62M with stage IV colon cancer s/p colectomy and colostomy for obstructing mass POD#6 Plan: -Continue tube feeds -Continue iv antibiotics -Medical management as per ICU -once extubated, PT/OT -D/W Dr Maryan Galvan PGY4 <Trace tSeinberg - Last Filed: 03/26/17 15:15> Objective - Vital Signs/Intake and Output Vital Signs (last 24 hours): Temp Pulse Resp BP Pulse Ox 97.6 F 88 29 H 143/87 98 03/26/17 04:00 03/26/17 07:02 03/26/17 07:02 03/26/17 10:40 03/26/17 07:00 Intake and Output: 03/26/17 03/26/17 06:59 18:59 Intake Total 1386 104 Output Total 1370 Balance 16 104 - Medications Medications: Current Medications Albuterol/Ipratropium (Duoneb 3 Mg/0.5 Mg (3 Ml) Ud) 3 ml INH RQ6 [facility] Last Admin: 03/26/17 14:36 Dose: 3 ml Benzocaine/Menthol (Cepacol Sore Throat) 1 michael MT Q4 PRN PRN Reason: Sore Throat Last Admin: 03/24/17 09:18 Dose: 1 michael Home Med (Patient's Own Drops) 0 drop OU BID [facility] Last Admin: 03/26/17 10:40 Dose: 1 drop Home Med (Patient's Own Drops) 0 drop OU HS [facility] Last Admin: 03/26/17 00:24 Dose: 1 drop Metronidazole (Flagyl) 500 mg in 100 mls @ 100 mls/hr IVPB Q8 [facility] Last Admin: 03/26/17 06:05 Dose: 100 mls/hr BUPIVACAINE 0.125%/0.9% NACL (Bupivacaine-Ns 0.125% On-Q Army Manager) 600 mls @ 4 mls/ hr IJ ONCE ONE Stop: 03/27/17 15:29 Last Admin: 03/21/17 12:17 Dose: 4 mls/hr Cefepime HCl (Maxipime Iv 2 Gm Premix) 2 gm in 100 mls @ 100 mls/hr IVPB Q8H [facility] Stop: 03/26/17 20:01 Last Admin: 03/26/17 03:24 Dose: 100 mls/hr Vancomycin/Sodium Chloride (Vancomycin 1 Gm/Ns 200 Ml) 1 gm in 200 mls @ 133.333 mls/hr IVPB Q24H [facility] Stop: 03/29/17 09:01 Last Admin: 03/26/17 10:39 Dose: 133.333 mls/hr Dextrose/Sodium Chloride (Dextrose 5%/0.9% Ns 1000 Ml) 1,000 mls @ 42 mls/hr IV .[id number] [facility] Last Admin: 03/26/17 10:39 Dose: 42 mls/hr Losartan Potassium (Cozaar) 25 mg PO DAILY [facility] Last Admin: 03/26/17 10:40 Dose: 25 mg Metoprolol Tartrate (Lopressor) 25 mg PO BID [facility] Last Admin: 03/26/17 10:40 Dose: 25 mg Ondansetron HCl (Zofran Inj) 4 mg IVP Q4H PRN PRN Reason: Nausea/Vomiting Last Admin: 03/16/17 13:07 Dose: 4 mg Pantoprazole Sodium (Protonix Inj) 40 mg IVP DAILY [facility] Last Admin: 03/26/17 10:40 Dose: 40 mg - Labs Labs: 03/26/17 06:11 03/26/17 06:11 PT 19.4 SECONDS (9.7-12.2) H D 03/17/17 20:14 INR 1.7 D 03/17/17 20:14 APTT 35 SECONDS (21-34) H D 03/17/17 20:14 Attending/Attestation - Attestation I have personally seen and examined this patient.: Yes I have fully participated in the care of the patient.: Yes I have reviewed all pertinent clinical information, including history, physical exam and plan: Yes Notes (Text): Pt was seen and examined at bedside Agree with above note and assessment Pt is improving clinically ID f/u for persistent Leucocytosis C/w tube feeds OOB to walk C/w current mx Plan d.w ICU attending.
[2017-03-23] MEDS: TRAVATAN OU SCH (21:15)
--- NOTE | 2017-03-24 00:47 | PN ---
DATE: SUBJECTIVE: Patient has been extubated. He was in a Kacy chair. He looked better. OBJECTIVE: VITAL SIGNS: T-max is 98, pulse was 91, saturation was 99%, respirations were 23, and blood pressure 155/95. HEENT: Head is atraumatic. NECK: Supple. LUNGS: Have bilateral rhonchi. HEART: S1, S2 is regular. ABDOMEN: Prominent with dressing and MARIBELL drain present. EXTREMITIES: Remain with Venodyne boots. LABORATORY DATA: His white count has increased to 23.1, hemoglobin 9.4, hematocrit 28.8, platelet count is 286. He is on cefepime, Zithromax, and metronidazole at this time. Micro-richards, cultures have been all negative except for sputum, which is pending. His chest x-ray done today shows enteric tube and has mild interval improvement, bilateral multifocal airspace disease noted, significant interval change. ASSESSMENT AND PLAN: So, at this time, he looks better. His white counts are very high. We will repeat it again, and if white count is increasing, I think we need to switch the Zithromax to vancomycin 1 g daily. He has been having good output now and may be able to tolerate it once a day. Patient is status post laparotomy and respiratory failure, and is being followed. He has stage IV colon cancer, status post colectomy and colostomy for obstructing mass. Cadence Hutchins MD
[2017-03-24] MEDS: Albuterol-Ipratrop 3 mg / 0.5 (3 ml) UD INH SCH ×4 (01:59→20:22)
[2017-03-24] MEDS: Cefepime IV 2 gm in Dextrose 2 GM/100 ML BAG IVPB SCH ×3 (03:47→20:00)
--- NOTE | 2017-03-24 05:50 | CP.PCM.PN ---
Subjective - Date & Time of Evaluation Date of Evaluation: 03/24/17 Time of Evaluation: 05:49 - Subjective Subjective: Patient last night he developed a significant congestion in the throat. Patient was also having regurgitation, and significant cerebral secretions. Last night I discontinued the NG feeding. In the NG tube was placed on suction, almost 400 mL of fluid came out. Patient feeling slightly better, he is more awake than before, he is having somewhat difficulty in clearing the throat. Vital signs stable. Oxygenation is better. Patient will need frequent suctioning. Vital signs are stable, 62-year-old male admitted with the colon mass, status post a colectomy now recommending. Complicated with a possible aspiration pneumonia. An aspiration pneumonitis. Patient will need swallow evaluation. Meanwhile hyperalimentation to be considered. Objective - Vital Signs/Intake and Output Vital Signs (last 24 hours): Temp Pulse Resp BP Pulse Ox 98.5 F 82 24 94/68 L 96 03/24/17 00:00 03/24/17 04:04 03/24/17 04:04 03/24/17 04:04 03/24/17 04:04 Intake and Output: 03/23/17 03/24/17 18:59 06:59 Intake Total 1073.0 486 Output Total 670 365 Balance 403.0 121 - Medications Medications: Current Medications Albuterol/Ipratropium (Duoneb 3 Mg/0.5 Mg (3 Ml) Ud) 3 ml INH RQ6 [facility] Last Admin: 03/24/17 01:59 Dose: 3 ml Enoxaparin Sodium (Lovenox) 30 mg SC DAILY [facility] Last Admin: 03/23/17 10:11 Dose: 30 mg Home Med (Patient's Own Drops) 0 drop OU BID [facility] Last Admin: 03/23/17 17:29 Dose: 1 drop Home Med (Patient's Own Drops) 0 drop OU HS [facility] Last Admin: 03/23/17 21:15 Dose: 1 drop Metronidazole (Flagyl) 500 mg in 100 mls @ 100 mls/hr IVPB Q8 [facility] Last Admin: 03/23/17 22:25 Dose: 100 mls/hr BUPIVACAINE 0.125%/0.9% NACL (Bupivacaine-Ns 0.125% On-Q Hedge Fund Trader) 600 mls @ 4 mls/ hr IJ ONCE ONE Stop: 03/27/17 15:29 Last Admin: 03/21/17 12:17 Dose: 4 mls/hr Cefepime HCl (Maxipime Iv 2 Gm Premix) 2 gm in 100 mls @ 100 mls/hr IVPB Q8H [facility] Stop: 03/26/17 20:01 Last Admin: 03/24/17 03:47 Dose: 100 mls/hr Azithromycin 500 mg/ Dextrose 250 mls @ 250 mls/hr IVPB DAILY [facility] Last Admin: 03/23/17 10:12 Dose: 250 mls/hr Losartan Potassium (Cozaar) 25 mg PO DAILY [facility] Last Admin: 03/23/17 10:10 Dose: 25 mg Metoprolol Tartrate (Lopressor) 25 mg PO BID [facility] Last Admin: 03/23/17 17:28 Dose: 25 mg Ondansetron HCl (Zofran Inj) 4 mg IVP Q4H PRN PRN Reason: Nausea/Vomiting Last Admin: 03/16/17 13:07 Dose: 4 mg Pantoprazole Sodium (Protonix Inj) 40 mg IVP DAILY [facility] Last Admin: 03/23/17 10:11 Dose: 40 mg - Labs Labs: 03/23/17 05:48 03/23/17 05:48 PT 19.4 SECONDS (9.7-12.2) H D 03/17/17 20:14 INR 1.7 D 03/17/17 20:14 APTT 35 SECONDS (21-34) H D 03/17/17 20:14
[2017-03-24] MEDS: metroNIDAZOLE IV 500 mg/100 ml 500 MG/100 ML BAG IVPB SCH ×3 (06:24→21:43)
[2017-03-24 06:46] LABS: BASO # 0.1 K/uL (0.0-0.2); BASO % 0.6 % (0.0-2.0); EOS # 0.5 K/uL (0.0-0.7); HEMOGLOBIN 8.8 g/dL (12.0-18.0); LYMPH # 1.6 K/uL (1.0-4.3); LYMPH % 6.2 % (20.0-40.0); MEAN CELL VOLUME 74.7 fL (80.0-94.0); MEAN CORPUSCULAR HEMOGLOBIN 24.7 pg (27.0-31.0); MEAN CORPUSCULAR HGB CONC 33.1 g/dL (33.0-37.0); MEAN PLATELET VOLUME 8.5 fL (7.2-11.7); MONO # 2.1 K/uL (0.0-0.8); MONO % 7.9 % (0.0-10.0); NEUT # 22.1 K/uL (1.8-7.0); NEUT % 83.3 % (50.0-75.0); PLATELET COUNT 305 K/uL (130-400); RBC 3.55 Mil/uL (4.40-5.90); RED CELL DISTRIBUTION WIDTH 18.7 % (11.5-14.5); WHITE BLOOD COUNT 26.5 K/uL (4.8-10.8)
[2017-03-24 06:58] LABS: ALB/GLOB RATIO 0.9 (1.0-2.1); ALBUMIN 3.1 g/dL (3.5-5.0); ALT/SGPT 31 U/L (21-72); AST/SGOT 58 U/L (17-59); BLOOD UREA NITROGEN 46 mg/dL (9-20); CALCIUM 8.3 mg/dl (8.6-10.4); GFR AFRICAN-AMERICAN > 60; GFR NON-AFRICAN AMERICAN 56; MAGNESIUM 2.1 mg/dL (1.6-2.3)
[2017-03-24] MEDS ORDERED: Potassium Chloride 20 mEq/15 ml LIQ UD PO ONE ×2 (08:39→08:41)
[2017-03-24 08:50] LABS: BANDS 8 % (0-2); EOSINOPHIL 2 % (0-4); LYMPHOCYTE 6 % (20-40); METAMYELOCYTE 1 % (0-0); MONOCYTE 6 % (0-10); NEUTROPHIL 75 % (50-75); PLATELET ESTIMATE NORMAL (NORMAL); REACTIVE LYMPHOCYTES 2 % (0-0); TOTAL CELLS COUNTED 100
[2017-03-24 08:51] LABS: ANISOCYTOSIS SLIGHT; HYPOCHROMIC SLIGHT; LARGE PLATELETS PRESENT; MICROCYTOSIS SLIGHT; OVALOCYTES SLIGHT; PLATELET CLUMPS PRESENT; POIKILOCYTOSIS SLIGHT; POLYCHROMIC SLIGHT; TARGET CELLS SLIGHT
[2017-03-24 08:53] LABS: GIANT PLATELETS PRESENT
[2017-03-24 08:54] LABS: TOXIC GRANULATION PRESENT
--- NOTE | 2017-03-24 08:56 | RAD ---
Chest x-ray single frontal view History: Extubated. Comparison: 03/23/2017 Findings: Interval removal of an endotracheal tube. NG tube extending into the stomach. Prominent diffuse ill-defined consolidative opacities throughout both lungs most prominent at the right mid to lower lung zone as well as at the left lung base. Cardiomegaly. Calcification at the aortic knob. Degenerative changes in the spine and shoulders. Impression: Prominent diffuse ill-defined consolidative opacities throughout both lungs most prominent at the right mid to lower lung zone as well as at the left lung base. Cardiomegaly. Calcification at the aortic knob.
--- NOTE | 2017-03-24 09:02 | CP.PCM.PN ---
Subjective - Date & Time of Evaluation Date of Evaluation: 03/24/17 Time of Evaluation: 09:00 - Subjective Subjective: Patient is now extubated. He was non verbal when I saw patient this AM, however he was able to follow commands such as grasping my hand, raising his arms up in air. He was also able to nod his head with some questions. He seemed to indicate he was not in pain when I asked him. WBC remains elevated. The procalcitonin from 03/21 was elevated. CXRAY showing the bilateral findings. So far all the blood cultures are negative, there's a pending trach culture at this time. Renal function is better UOP is ok as well. Objective - Vital Signs/Intake and Output Vital Signs (last 24 hours): Temp Pulse Resp BP Pulse Ox 98.3 F 79 25 H 126/74 98 03/24/17 05:00 03/24/17 08:04 03/24/17 08:04 03/24/17 08:04 03/24/17 08:04 Intake and Output: 03/24/17 03/24/17 06:59 18:59 Intake Total 598 4 Output Total 710 105 Balance -112 -101 - Medications Medications: Current Medications Albuterol/Ipratropium (Duoneb 3 Mg/0.5 Mg (3 Ml) Ud) 3 ml INH RQ6 [facility] Last Admin: 03/24/17 08:10 Dose: 3 ml Benzocaine/Menthol (Cepacol Sore Throat) 1 michael MT Q4 PRN PRN Reason: Sore Throat Enoxaparin Sodium (Lovenox) 30 mg SC DAILY [facility] Last Admin: 03/23/17 10:11 Dose: 30 mg Home Med (Patient's Own Drops) 0 drop OU BID [facility] Last Admin: 03/23/17 17:29 Dose: 1 drop Home Med (Patient's Own Drops) 0 drop OU HS [facility] Last Admin: 03/23/17 21:15 Dose: 1 drop Metronidazole (Flagyl) 500 mg in 100 mls @ 100 mls/hr IVPB Q8 [facility] Last Admin: 03/24/17 06:24 Dose: 100 mls/hr BUPIVACAINE 0.125%/0.9% NACL (Bupivacaine-Ns 0.125% On-Q Vine Pruner) 600 mls @ 4 mls/ hr IJ ONCE ONE Stop: 03/27/17 15:29 Last Admin: 03/21/17 12:17 Dose: 4 mls/hr Cefepime HCl (Maxipime Iv 2 Gm Premix) 2 gm in 100 mls @ 100 mls/hr IVPB Q8H [facility] Stop: 03/26/17 20:01 Last Admin: 03/24/17 03:47 Dose: 100 mls/hr Vancomycin/Sodium Chloride (Vancomycin 1 Gm/Ns 200 Ml) 1 gm in 200 mls @ 133.333 mls/hr IVPB Q24H [facility] Stop: 03/29/17 09:01 Losartan Potassium (Cozaar) 25 mg PO DAILY [facility] Last Admin: 03/23/17 10:10 Dose: 25 mg Metoprolol Tartrate (Lopressor) 25 mg PO BID [facility] Last Admin: 03/23/17 17:28 Dose: 25 mg Ondansetron HCl (Zofran Inj) 4 mg IVP Q4H PRN PRN Reason: Nausea/Vomiting Last Admin: 03/16/17 13:07 Dose: 4 mg Pantoprazole Sodium (Protonix Inj) 40 mg IVP DAILY [facility] Last Admin: 03/23/17 10:11 Dose: 40 mg - Labs Labs: 03/24/17 06:36 03/24/17 06:35 PT 19.4 SECONDS (9.7-12.2) H D 03/17/17 20:14 INR 1.7 D 03/17/17 20:14 APTT 35 SECONDS (21-34) H D 03/17/17 20:14 - Constitutional Appears: Confused, Chronically Ill - ENT Exam ENT Exam: Mucous Membranes Moist - Respiratory Exam Respiratory Exam: Decreased Breath Sounds, Rales, Rhonchi - Cardiovascular Exam Cardiovascular Exam: REGULAR RHYTHM - Neurological Exam Neurological Exam: Altered, Awake Neuro motor strength exam: Left Upper Extremity: 4, Left Lower Extremity: 4 - Psychiatric Exam Psychiatric exam: Depressed, Flat Affect - Skin Skin Exam: Warm Assessment and Plan - Assessment and Plan (Free Text) Assessment: This is a 62 year old male who came to the hospital on 03/15 with abdominal pain , weight loss, no BMs, and also dark emesis. He was determined to have a a 4.6 x 5 x 7 cm mass that was causing obstruction. This same imaging also suggested a metastatic spread of a cancer to lungs and liver as well. He then underwent a flexible sigmoidscopy on 03/16 and the biopsy showed adenocarcinoma. He underwent an exploratory laparotomy and left hemicolectomy and creation of a colostomy. 03/23: I spoke with patient's and updated her. Prognosis is not good. is not sure about deciding on code status. She is well aware prognosis is poor. 1. Colon mass with obstruction, biopsy from 03/16 showing adenocarcinima. 03/24: Now POD 6, the tissue from 03/17 has returned showing adenocarcinoma 03/21: Now with colostomy. He is S/P POD 3 of exploratory laparotmy with left hemicolectomy and colostomy. He had takedown of splenic flexure, lysis of adhesions, omentectomy. biopsy. GI consult DR Esparza s/p sigmoidoscopy and biopsy follow biopsy report Patient remains Intubated,todays chext x ray with RLL infiltrate follow up assistant elementary teacher recommendation 2. Ventilator dependent respiratory failure 03/24: Now extubated, did ok overnight the tube feeds had to be held temporarily and now is restarted 03/23: Remains on CPAPA/PS settings, still has elevated WBC. is aware of poor prognosis 03/22: He tolerated being on CPAP/pressure support settings without incidence overnight hopefully at some point to be extubated 03/21: At this moment is on CPAP/PS settings He has been on IV cefepime, IV tigecyclin, as well as IV flagly The XRAY from today continuing to show infiltrates sedated on MV,urine out is improving 3. Bilateral lobe pneumonia 03/24: Now extubated, remains on IV abx. WBC is 26, high procalcitonin. The blood pressures are stable for now. 03/23: Again high WBC, on Azithromycin, Cefepime, Flagyl. Blood and trach cultures negative 03/22: WBC count remains elevated with bandemia. Continue with IV abx. 03/21: As mentioned above, continue with ventilation, follow CXRAYs, IV abx The cultures remain negative at this moment 4. Acute Kidney Injury 03/22: Creatine decreased to 1.2, urine out put 3,500 03/21: Creatine 1.5 today, urine out put was 5,900 over 24hrs 5. Anemia monitor hemoglobin type and screen and follow hemoglobin 6. Leukocytosis with bands,r/o sepsis continue flagyl , cefepime and Tigecycline follow repeat blood culture and trach culture 7. DVT prophylaxis-SCDs GI prophylaxis-Protonix 8. Liver and lung mass Probably colon cancer with metastatic spread to liver and also lung. Overall prognosis prognosis appears poor at this time. Dr Quiros/oncology consult
[2017-03-24] MEDS: Enoxaparin 30 mg Syringe SC SCH (09:16)
[2017-03-24] MEDS: COMBIGAN OU SCH ×2 (09:17→17:33)
[2017-03-24] MEDS: Benzocaine/Menthol (Cepacol) Lozenge MT PRN (09:18)
--- NOTE | 2017-03-24 09:28 | CP.PCM.PN ---
Subjective - Date & Time of Evaluation Date of Evaluation: 03/24/17 Time of Evaluation: 09:26 - Subjective Subjective: More lethargic today Good urine output- >1000ml K low , renal function stable now maintained on GT feeds Objective - Vital Signs/Intake and Output Vital Signs (last 24 hours): Temp Pulse Resp BP Pulse Ox 98.3 F 79 25 H 126/74 98 03/24/17 05:00 03/24/17 08:04 03/24/17 08:04 03/24/17 08:04 03/24/17 08:04 Intake and Output: 03/24/17 03/24/17 06:59 18:59 Intake Total 598 4 Output Total 710 105 Balance -112 -101 - Medications Medications: Current Medications Albuterol/Ipratropium (Duoneb 3 Mg/0.5 Mg (3 Ml) Ud) 3 ml INH RQ6 [facility] Last Admin: 03/24/17 08:10 Dose: 3 ml Benzocaine/Menthol (Cepacol Sore Throat) 1 michael MT Q4 PRN PRN Reason: Sore Throat Enoxaparin Sodium (Lovenox) 30 mg SC DAILY [facility] Last Admin: 03/23/17 10:11 Dose: 30 mg Home Med (Patient's Own Drops) 0 drop OU BID [facility] Last Admin: 03/23/17 17:29 Dose: 1 drop Home Med (Patient's Own Drops) 0 drop OU HS [facility] Last Admin: 03/23/17 21:15 Dose: 1 drop Metronidazole (Flagyl) 500 mg in 100 mls @ 100 mls/hr IVPB Q8 [facility] Last Admin: 03/24/17 06:24 Dose: 100 mls/hr BUPIVACAINE 0.125%/0.9% NACL (Bupivacaine-Ns 0.125% On-Q Residential Builder) 600 mls @ 4 mls/ hr IJ ONCE ONE Stop: 03/27/17 15:29 Last Admin: 03/21/17 12:17 Dose: 4 mls/hr Cefepime HCl (Maxipime Iv 2 Gm Premix) 2 gm in 100 mls @ 100 mls/hr IVPB Q8H [facility] Stop: 03/26/17 20:01 Last Admin: 03/24/17 03:47 Dose: 100 mls/hr Vancomycin/Sodium Chloride (Vancomycin 1 Gm/Ns 200 Ml) 1 gm in 200 mls @ 133.333 mls/hr IVPB Q24H [facility] Stop: 03/29/17 09:01 Losartan Potassium (Cozaar) 25 mg PO DAILY [facility] Last Admin: 03/23/17 10:10 Dose: 25 mg Metoprolol Tartrate (Lopressor) 25 mg PO BID [facility] Last Admin: 03/23/17 17:28 Dose: 25 mg Ondansetron HCl (Zofran Inj) 4 mg IVP Q4H PRN PRN Reason: Nausea/Vomiting Last Admin: 03/16/17 13:07 Dose: 4 mg Pantoprazole Sodium (Protonix Inj) 40 mg IVP DAILY [facility] Last Admin: 03/23/17 10:11 Dose: 40 mg - Labs Labs: 03/24/17 06:36 03/24/17 06:35 PT 19.4 SECONDS (9.7-12.2) H D 03/17/17 20:14 INR 1.7 D 03/17/17 20:14 APTT 35 SECONDS (21-34) H D 03/17/17 20:14 - Constitutional Appears: No Acute Distress, Cachectic, Chronically Ill - Head Exam Head Exam: ATRAUMATIC, NORMAL INSPECTION - Eye Exam Eye Exam: EOMI, Normal appearance - Neck Exam Neck Exam: Normal Inspection. absent: Tenderness - Respiratory Exam Respiratory Exam: Rhonchi, NORMAL BREATHING PATTERN - Cardiovascular Exam Cardiovascular Exam: REGULAR RHYTHM, +S1 - GI/Abdominal Exam GI & Abdominal Exam: Soft. absent: Tenderness - Extremities Exam Extremities Exam: Pedal Edema. absent: Tenderness - Neurological Exam Neurological Exam: Altered - Skin Skin Exam: Dry, Warm Assessment and Plan (1) Colon cancer Status: Acute (2) JENNY (acute kidney injury) Status: Acute (3) SBO (small bowel obstruction) Status: Acute (4) Dehydration Status: Acute (5) SBO (small bowel obstruction) Status: Acute - Assessment and Plan (Free Text) Plan: Replete K follow up renal function, lytes
[2017-03-24] MEDS: Vancomycin 1 gm/NS 200 ml 1 GM/200 ML BAG IVPB SCH (09:44)
[2017-03-24] MEDS ORDERED: Iohexol 240 (50 ml) PO ONE (15:00)
--- NOTE | 2017-03-24 15:32 | CP.CCUPN ---
<Luis Kelly - Last Filed: 03/24/17 15:29> CCU Subjective - Physician Review Subjective (Free Text): 03/23/17 11:15 patient seen and examined at bedside doing well extubated today tolerating it well family at bedside patient more awake and aware 03/24/17 15:29 patient seen and examined at bedside doing well much more awake tolerating extubation well white count continues to rise will do CT abdomen to r/o intrabdominal process No other complaints at this time family at bedside discussed case with family and consultants CCU Objective - Vital Signs / Intake & Output Vital Signs (Last 4 hours): Vital Signs Temp Pulse Resp BP Pulse Ox 03/24/17 15:04 76 25 H 108/71 100 03/24/17 14:04 78 21 115/72 95 03/24/17 13:04 77 30 H 114/72 100 03/24/17 12:04 76 27 H 113/73 98 03/24/17 12:00 97.5 F L Intake and Output (Last 8hrs): Intake & Output 03/24/17 03/24/17 03/24/17 06:59 14:59 22:59 Intake Total 236 508 104 Output Total 605 465 60 Balance -369 43 44 Weight 194 lb 10.691 oz Intake: Intake, IV Amount 236 428 4 right forearm 200 400 upper midabdomen on-Q 36 28 4 pump Oral 100 Tube Feeding 0 80 Output: Gastric Amount 200 Nares 200 Drainage 10 Right Lower Abdomen 10 Urine 365 465 60 Urethral (Fox) 365 465 60 Stool 30 - Physical Exam Head: Positive for: Atraumatic, Normocephalic Pupils: Positive for: PERRL Extroacular Muscles: Positive for: EOMI Conjunctiva: Positive for: Normal Mouth: Positive for: Moist Mucous Membranes Neck: Positive for: Normal Range of Motion Respiratory/Chest: Positive for: Clear to Auscultation, Accessory Muscle Use Cardiovascular: Positive for: Regular Rate and Rhythm Abdomen: Positive for: Normal Bowel Sounds. Negative for: Tenderness, Distention, Peritoneal Signs Lower Extremity: Positive for: Other (tvp) Psychiatric: Positive for: Alert, Oriented x 3 - Medications Active Medications: Active Medications Generic Name Dose Route Start Last Admin Trade Name Freq PRN Reason Stop Dose Admin Albuterol/Ipratropium 3 ml 03/18/17 14:00 03/24/17 13:37 Duoneb 3 Mg/0.5 Mg (3 Ml) Ud INH 3 ml RQ6 MARC Administration Benzocaine/Menthol 1 michael 03/24/17 07:47 03/24/17 09:18 Cepacol Sore Throat MT 1 michael Q4 PRN Administration Sore Throat Enoxaparin Sodium 30 mg 03/18/17 10:00 03/24/17 09:16 Lovenox SC 30 mg DAILY MARC Administration Home Med 0 drop 03/15/17 21:15 03/24/17 09:17 Patient's Own Drops OU 1 drop BID MARC Administration Home Med 0 drop 03/15/17 22:00 03/23/17 21:15 Patient's Own Drops OU 1 drop HS MARC Administration Metronidazole 500 mg in 100 mls @ 100 mls/hr 03/15/17 14:00 03/24/17 14:31 Flagyl IVPB 100 mls/hr Q8 MARC Administration BUPIVACAINE 0.125%/0.9% NACL 600 mls @ 4 mls/hr 03/21/17 09:30 03/21/17 12:17 Bupivacaine-Ns 0.125% On-Q Academy Director IJ 03/27/17 15:29 4 mls/hr ONCE ONE Administration Cefepime HCl 2 gm in 100 mls @ 100 mls/hr 03/21/17 20:00 03/24/17 13:01 Maxipime Iv 2 Gm Premix IVPB 03/26/17 20:01 100 mls/hr Q8H MARC Administration Vancomycin/Sodium Chloride 1 gm in 200 mls @ 133.333 mls/hr 03/24/17 09:00 09:44 Vancomycin 1 Gm/Ns 200 Ml IVPB 03/29/17 09:01 133.333 mls/hr Q24H MARC Administration Losartan Potassium 25 mg 03/22/17 12:30 03/24/17 09:16 Cozaar PO 25 mg DAILY MARC Administration Metoprolol Tartrate 25 mg 03/21/17 10:00 03/24/17 09:16 Lopressor PO 25 mg BID MARC Administration Ondansetron HCl 4 mg 03/15/17 08:52 03/16/17 13:07 Zofran Inj IVP 4 mg Q4H PRN Administration Nausea/Vomiting Pantoprazole Sodium 40 mg 03/17/17 10:00 03/24/17 09:17 Protonix Inj IVP 40 mg DAILY MARC Administration - Patient Studies Lab Studies: Microbiology Studies 03/22/17 09:31 Gram Stain - Final Trachasp Sputum Culture - Final Yeast Species 03/19/17 00:15 Blood Culture - Final Blood-Venous NO GROWTH AFTER 5 DAYS Gram Stain - Final TEST NOT PERFORMED 03/19/17 00:30 Blood Culture - Final Blood-Venous NO GROWTH AFTER 5 DAYS Gram Stain - Final TEST NOT PERFORMED Lab Studies 03/24/17 03/24/17 Range/Units 06:36 06:35 WBC 26.5 H (4.8-10.8) K/uL RBC 3.55 L (4.40-5.90) Mil/uL Hgb 8.8 L (12.0-18.0) g/dL Hct 26.5 L (35.0-51.0) % MCV 74.7 L (80.0-94.0) fL MCH 24.7 L (27.0-31.0) pg MCHC 33.1 (33.0-37.0) g/dL RDW 18.7 H (11.5-14.5) % Plt Count 305 (130-400) K/uL MPV 8.5 (7.2-11.7) fL Neut % (Auto) 83.3 H (50.0-75.0) % Lymph % (Auto) 6.2 L (20.0-40.0) % King % (Auto) 7.9 (0.0-10.0) % Eos % (Auto) 2.0 (0.0-4.0) % Baso % (Auto) 0.6 (0.0-2.0) % Neut # 22.1 H (1.8-7.0) K/uL Lymph # 1.6 (1.0-4.3) K/uL King # 2.1 H (0.0-0.8) K/uL Eos # 0.5 (0.0-0.7) K/uL Baso # 0.1 (0.0-0.2) K/uL Neutrophils % (Manual) 75 (50-75) % Band Neutrophils % 8 H (0-2) % Lymphocytes % (Manual) 6 L (20-40) % Reactive Lymphs % 2 H (0-0) % Monocytes % (Manual) 6 (0-10) % Eosinophils % (Manual) 2 (0-4) % Metamyelocytes % 1 H (0-0) % Toxic Granulation Present Platelet Estimate Normal (NORMAL) Plt Clumps, EDTA Present Large Platelets Present Giant Platelets Present Polychromasia Slight Hypochromasia (manual) Slight Poikilocytosis (manual Slight Basophilic Stippling Slight Anisocytosis (manual) Slight Microcytosis (manual) Slight Target Cells Slight Ovalocytes Slight Sodium 142 (132-148) mmol/L Potassium 3.5 L (3.6-5.2) mmol/L Chloride 106 (98-107) mmol/L Carbon Dioxide 28 (22-30) mmol/L Anion Gap 12 (10-20) BUN 46 H (9-20) mg/dL Creatinine 1.3 (0.8-1.5) mg/dL Est GFR ( Amer) > 60 Est GFR (Non-Af Amer) 56 Random Glucose 99 (75-110) mg/dL Calcium 8.3 L (8.6-10.4) mg/dl Phosphorus 3.5 (2.5-4.5) mg/dL Magnesium 2.1 (1.6-2.3) mg/dL Total Bilirubin 1.2 (0.2-1.3) mg/dL AST 58 (17-59) U/L ALT 31 (21-72) U/L Alkaline Phosphatase 142 H (38-126) U/L Total Protein 6.4 (6.3-8.3) g/dL Albumin 3.1 L (3.5-5.0) g/dL Globulin 3.4 (2.2-3.9) gm/dL Albumin/Globulin Ratio 0.9 L (1.0-2.1) Laboratory Results - last 24 hr 03/24/17 03/24/17 06:35 06:36 WBC 26.5 H RBC 3.55 L Hgb 8.8 L Hct 26.5 L MCV 74.7 L MCH 24.7 L MCHC 33.1 RDW 18.7 H Plt Count 305 MPV 8.5 Neut % (Auto) 83.3 H Lymph % (Auto) 6.2 L King % (Auto) 7.9 Eos % (Auto) 2.0 Baso % (Auto) 0.6 Neut # 22.1 H Lymph # 1.6 King # 2.1 H Eos # 0.5 Baso # 0.1 Neutrophils % (Manual) 75 Band Neutrophils % 8 H Lymphocytes % (Manual) 6 L Reactive Lymphs % 2 H Monocytes % (Manual) 6 Eosinophils % (Manual) 2 Metamyelocytes % 1 H Toxic Granulation Present Platelet Estimate Normal Plt Clumps, EDTA Present Large Platelets Present Giant Platelets Present Polychromasia Slight Hypochromasia (manual) Slight Poikilocytosis (manual Slight Basophilic Stippling Slight Anisocytosis (manual) Slight Microcytosis (manual) Slight Target Cells Slight Ovalocytes Slight Sodium 142 Potassium 3.5 L Chloride 106 Carbon Dioxide 28 Anion Gap 12 BUN 46 H Creatinine 1.3 Est GFR ( Amer) > 60 Est GFR (Non-Af Amer) 56 Random Glucose 99 Calcium 8.3 L Phosphorus 3.5 Magnesium 2.1 Total Bilirubin 1.2 AST 58 ALT 31 Alkaline Phosphatase 142 H Total Protein 6.4 Albumin 3.1 L Globulin 3.4 Albumin/Globulin Ratio 0.9 L Critical Care Progress Note - Nutrition Nutrition: Nutrition Category Date Time Status Heart Healthy Diet [DIET] Diets 03/24/17 Dinner Active Assessment/Plan - Assessment and Plan (Free Text) Assessment: 62 s/p L hemicolectomy for colon cancer Plan: Neuro: no acute issues off sedation Pulm: Extubated, tolerating well continue breathing treatments ICS Possible pna cefepime, vanco CV: sinus tachycardia improved lopressor Losartan Renal: no acute issues GI: s/p L. Hemicolectomy CT abd to r/o intrabdominal process Pureed diet bx adenocarcinoma ID: ID (Dr. Hutchins) white count increasing CT abd Flagyl 500 mg 100mls/hr IV Q8 PPx GI: Protonix 40 IV QD DVT: SCDs, lovenox <Mago Mendez M - Last Filed: 03/24/17 18:40> CCU Objective - Vital Signs / Intake & Output Vital Signs (Last 4 hours): Vital Signs Pulse Resp BP Pulse Ox 03/24/17 17:33 124/79 03/24/17 17:04 76 26 H 124/79 100 03/24/17 16:04 73 17 119/80 03/24/17 15:04 76 25 H 108/71 100 Intake and Output (Last 8hrs): Intake & Output 03/24/17 03/24/17 03/24/17 06:59 14:59 22:59 Intake Total 236 508 104 Output Total 605 465 60 Balance -369 43 44 Weight 194 lb 10.691 oz Intake: Intake, IV Amount 236 428 4 right forearm 200 400 upper midabdomen on-Q 36 28 4 pump Oral 100 Tube Feeding 0 80 Output: Gastric Amount 200 Nares 200 Drainage 10 Right Lower Abdomen 10 Urine 365 465 60 Urethral (Fox) 365 465 60 Stool 30 - Medications Active Medications: Active Medications Generic Name Dose Route Start Last Admin Trade Name Freq PRN Reason Stop Dose Admin Albuterol/Ipratropium 3 ml 03/18/17 14:00 03/24/17 13:37 Duoneb 3 Mg/0.5 Mg (3 Ml) Ud INH 3 ml RQ6 MARC Administration Benzocaine/Menthol 1 michael 03/24/17 07:47 03/24/17 09:18 Cepacol Sore Throat MT 1 michael Q4 PRN Administration Sore Throat Enoxaparin Sodium 30 mg 03/18/17 10:00 03/24/17 09:16 Lovenox SC 30 mg DAILY MARC Administration Home Med 0 drop 03/15/17 21:15 03/24/17 17:33 Patient's Own Drops OU 1 drop BID MARC Administration Home Med 0 drop 03/15/17 22:00 03/23/17 21:15 Patient's Own Drops OU 1 drop HS MARC Administration Metronidazole 500 mg in 100 mls @ 100 mls/hr 03/15/17 14:00 03/24/17 14:31 Flagyl IVPB 100 mls/hr Q8 MARC Administration BUPIVACAINE 0.125%/0.9% NACL 600 mls @ 4 mls/hr 03/21/17 09:30 03/21/17 12:17 Bupivacaine-Ns 0.125% On-Q Academy Director IJ 03/27/17 15:29 4 mls/hr ONCE ONE Administration Cefepime HCl 2 gm in 100 mls @ 100 mls/hr 03/21/17 20:00 03/24/17 13:01 Maxipime Iv 2 Gm Premix IVPB 03/26/17 20:01 100 mls/hr Q8H MARC Administration Vancomycin/Sodium Chloride 1 gm in 200 mls @ 133.333 mls/hr 03/24/17 09:00 09:44 Vancomycin 1 Gm/Ns 200 Ml IVPB 03/29/17 09:01 133.333 mls/hr Q24H MARC Administration Losartan Potassium 25 mg 03/22/17 12:30 03/24/17 09:16 Cozaar PO 25 mg DAILY MARC Administration Metoprolol Tartrate 25 mg 03/21/17 10:00 03/24/17 17:33 Lopressor PO 25 mg BID MARC Administration Ondansetron HCl 4 mg 03/15/17 08:52 03/16/17 13:07 Zofran Inj IVP 4 mg Q4H PRN Administration Nausea/Vomiting Pantoprazole Sodium 40 mg 03/17/17 10:00 03/24/17 09:17 Protonix Inj IVP 40 mg DAILY MARC Administration - Patient Studies Lab Studies: Microbiology Studies 03/23/17 09:54 Urine Culture - Final Urine No Growth (<1,000 CFU/ML) 03/22/17 09:31 Gram Stain - Final Trachasp Sputum Culture - Final Yeast Species 03/19/17 00:15 Blood Culture - Final Blood-Venous NO GROWTH AFTER 5 DAYS Gram Stain - Final TEST NOT PERFORMED 03/19/17 00:30 Blood Culture - Final Blood-Venous NO GROWTH AFTER 5 DAYS Gram Stain - Final TEST NOT PERFORMED Lab Studies 03/24/17 03/24/17 Range/Units 06:36 06:35 WBC 26.5 H (4.8-10.8) K/uL RBC 3.55 L (4.40-5.90) Mil/uL Hgb 8.8 L (12.0-18.0) g/dL Hct 26.5 L (35.0-51.0) % MCV 74.7 L (80.0-94.0) fL MCH 24.7 L (27.0-31.0) pg MCHC 33.1 (33.0-37.0) g/dL RDW 18.7 H (11.5-14.5) % Plt Count 305 (130-400) K/uL MPV 8.5 (7.2-11.7) fL Neut % (Auto) 83.3 H (50.0-75.0) % Lymph % (Auto) 6.2 L (20.0-40.0) % King % (Auto) 7.9 (0.0-10.0) % Eos % (Auto) 2.0 (0.0-4.0) % Baso % (Auto) 0.6 (0.0-2.0) % Neut # 22.1 H (1.8-7.0) K/uL Lymph # 1.6 (1.0-4.3) K/uL King # 2.1 H (0.0-0.8) K/uL Eos # 0.5 (0.0-0.7) K/uL Baso # 0.1 (0.0-0.2) K/uL Neutrophils % (Manual) 75 (50-75) % Band Neutrophils % 8 H (0-2) % Lymphocytes % (Manual) 6 L (20-40) % Reactive Lymphs % 2 H (0-0) % Monocytes % (Manual) 6 (0-10) % Eosinophils % (Manual) 2 (0-4) % Metamyelocytes % 1 H (0-0) % Toxic Granulation Present Platelet Estimate Normal (NORMAL) Plt Clumps, EDTA Present Large Platelets Present Giant Platelets Present Polychromasia Slight Hypochromasia (manual) Slight Poikilocytosis (manual Slight Basophilic Stippling Slight Anisocytosis (manual) Slight Microcytosis (manual) Slight Target Cells Slight Ovalocytes Slight Sodium 142 (132-148) mmol/L Potassium 3.5 L (3.6-5.2) mmol/L Chloride 106 (98-107) mmol/L Carbon Dioxide 28 (22-30) mmol/L Anion Gap 12 (10-20) BUN 46 H (9-20) mg/dL Creatinine 1.3 (0.8-1.5) mg/dL Est GFR ( Amer) > 60 Est GFR (Non-Af Amer) 56 Random Glucose 99 (75-110) mg/dL Calcium 8.3 L (8.6-10.4) mg/dl Phosphorus 3.5 (2.5-4.5) mg/dL Magnesium 2.1 (1.6-2.3) mg/dL Total Bilirubin 1.2 (0.2-1.3) mg/dL AST 58 (17-59) U/L ALT 31 (21-72) U/L Alkaline Phosphatase 142 H (38-126) U/L Total Protein 6.4 (6.3-8.3) g/dL Albumin 3.1 L (3.5-5.0) g/dL Globulin 3.4 (2.2-3.9) gm/dL Albumin/Globulin Ratio 0.9 L (1.0-2.1) Laboratory Results - last 24 hr 03/24/17 03/24/17 06:35 06:36 WBC 26.5 H RBC 3.55 L Hgb 8.8 L Hct 26.5 L MCV 74.7 L MCH 24.7 L MCHC 33.1 RDW 18.7 H Plt Count 305 MPV 8.5 Neut % (Auto) 83.3 H Lymph % (Auto) 6.2 L King % (Auto) 7.9 Eos % (Auto) 2.0 Baso % (Auto) 0.6 Neut # 22.1 H Lymph # 1.6 King # 2.1 H Eos # 0.5 Baso # 0.1 Neutrophils % (Manual) 75 Band Neutrophils % 8 H Lymphocytes % (Manual) 6 L Reactive Lymphs % 2 H Monocytes % (Manual) 6 Eosinophils % (Manual) 2 Metamyelocytes % 1 H Toxic Granulation Present Platelet Estimate Normal Plt Clumps, EDTA Present Large Platelets Present Giant Platelets Present Polychromasia Slight Hypochromasia (manual) Slight Poikilocytosis (manual Slight Basophilic Stippling Slight Anisocytosis (manual) Slight Microcytosis (manual) Slight Target Cells Slight Ovalocytes Slight Sodium 142 Potassium 3.5 L Chloride 106 Carbon Dioxide 28 Anion Gap 12 BUN 46 H Creatinine 1.3 Est GFR ( Amer) > 60 Est GFR (Non-Af Amer) 56 Random Glucose 99 Calcium 8.3 L Phosphorus 3.5 Magnesium 2.1 Total Bilirubin 1.2 AST 58 ALT 31 Alkaline Phosphatase 142 H Total Protein 6.4 Albumin 3.1 L Globulin 3.4 Albumin/Globulin Ratio 0.9 L Critical Care Progress Note - Nutrition Nutrition: Nutrition Category Date Time Status Heart Healthy Diet [DIET] Diets 03/24/17 Dinner Active Assessment/Plan - Assessment and Plan (Free Text) Plan: Above resident note reviewed and verified. Patient awake, alert tolerating Ng tube feeds -on nasal canula -advance diet as tolerated -advanace activity as per surgery -Leukcytosis worsening: obtain CT abd.pelvis, continue empirical abx r/o fluid collection -continue to monitor -patient remains hemodynamically stable. - Date & Time Date: 03/24/17 Time: 18:40
--- NOTE | 2017-03-24 15:33 | CP.PCM.PN ---
<Hudson Galvan - Last Filed: 03/24/17 15:30> Subjective - Date & Time of Evaluation Date of Evaluation: 03/24/17 Time of Evaluation: 07:30 - Subjective Subjective: General Surgery Pt S&E, NAEO. Extubated yesterday. Low NGT output. OOB to chair. Pain controlled. Objective - Vital Signs/Intake and Output Vital Signs (last 24 hours): Temp Pulse Resp BP Pulse Ox 97.5 F L 76 25 H 108/71 100 03/24/17 12:00 03/24/17 15:04 03/24/17 15:04 03/24/17 15:04 03/24/17 15:04 Intake and Output: 03/24/17 03/24/17 06:59 18:59 Intake Total 598 612 Output Total 710 525 Balance -112 87 - Medications Medications: Current Medications Albuterol/Ipratropium (Duoneb 3 Mg/0.5 Mg (3 Ml) Ud) 3 ml INH RQ6 [facility] Last Admin: 03/24/17 13:37 Dose: 3 ml Benzocaine/Menthol (Cepacol Sore Throat) 1 michael MT Q4 PRN PRN Reason: Sore Throat Last Admin: 03/24/17 09:18 Dose: 1 michael Enoxaparin Sodium (Lovenox) 30 mg SC DAILY [facility] Last Admin: 03/24/17 09:16 Dose: 30 mg Home Med (Patient's Own Drops) 0 drop OU BID [facility] Last Admin: 03/24/17 09:17 Dose: 1 drop Home Med (Patient's Own Drops) 0 drop OU HS [facility] Last Admin: 03/23/17 21:15 Dose: 1 drop Metronidazole (Flagyl) 500 mg in 100 mls @ 100 mls/hr IVPB Q8 [facility] Last Admin: 03/24/17 14:31 Dose: 100 mls/hr BUPIVACAINE 0.125%/0.9% NACL (Bupivacaine-Ns 0.125% On-Q Pattern Lease Inspector) 600 mls @ 4 mls/ hr IJ ONCE ONE Stop: 03/27/17 15:29 Last Admin: 03/21/17 12:17 Dose: 4 mls/hr Cefepime HCl (Maxipime Iv 2 Gm Premix) 2 gm in 100 mls @ 100 mls/hr IVPB Q8H [facility] Stop: 03/26/17 20:01 Last Admin: 03/24/17 13:01 Dose: 100 mls/hr Vancomycin/Sodium Chloride (Vancomycin 1 Gm/Ns 200 Ml) 1 gm in 200 mls @ 133.333 mls/hr IVPB Q24H [facility] Stop: 03/29/17 09:01 Last Admin: 03/24/17 09:44 Dose: 133.333 mls/hr Losartan Potassium (Cozaar) 25 mg PO DAILY [facility] Last Admin: 03/24/17 09:16 Dose: 25 mg Metoprolol Tartrate (Lopressor) 25 mg PO BID [facility] Last Admin: 03/24/17 09:16 Dose: 25 mg Ondansetron HCl (Zofran Inj) 4 mg IVP Q4H PRN PRN Reason: Nausea/Vomiting Last Admin: 03/16/17 13:07 Dose: 4 mg Pantoprazole Sodium (Protonix Inj) 40 mg IVP DAILY [facility] Last Admin: 03/24/17 09:17 Dose: 40 mg - Labs Labs: 03/24/17 06:36 03/24/17 06:35 PT 19.4 SECONDS (9.7-12.2) H D 03/17/17 20:14 INR 1.7 D 03/17/17 20:14 APTT 35 SECONDS (21-34) H D 03/17/17 20:14 - Constitutional Appears: Non-toxic, No Acute Distress - Head Exam Head Exam: ATRAUMATIC, NORMOCEPHALIC - Eye Exam Eye Exam: EOMI. absent: Scleral icterus - Respiratory Exam Respiratory Exam: NORMAL BREATHING PATTERN. absent: Respiratory Distress - GI/Abdominal Exam GI & Abdominal Exam: Soft, Tenderness (mild general pain). absent: Distended, Firm, Guarding, Rigid, Rebound - Neurological Exam Neurological Exam: Alert, Awake, Oriented x3 - Skin Skin Exam: Dry, Warm Assessment and Plan - Assessment and Plan (Free Text) Assessment: 62M with stage IV colon cancer s/p colectomy and colostomy for obstructing mass POD#7 Plan: DC NGT ADAT CT abd/pelvis DVT duplex Monitor for fevers D/W Dr. Maryan Galvan PGY4 <Trace Steinberg - Last Filed: 03/26/17 15:17> Objective - Vital Signs/Intake and Output Vital Signs (last 24 hours): Temp Pulse Resp BP Pulse Ox 97.6 F 88 29 H 143/87 98 03/26/17 04:00 03/26/17 07:02 03/26/17 07:02 03/26/17 10:40 03/26/17 07:00 Intake and Output: 03/26/17 03/26/17 06:59 18:59 Intake Total 1386 104 Output Total 1370 Balance 16 104 - Medications Medications: Current Medications Albuterol/Ipratropium (Duoneb 3 Mg/0.5 Mg (3 Ml) Ud) 3 ml INH RQ6 [facility] Last Admin: 03/26/17 14:36 Dose: 3 ml Benzocaine/Menthol (Cepacol Sore Throat) 1 michael MT Q4 PRN PRN Reason: Sore Throat Last Admin: 03/24/17 09:18 Dose: 1 michael Home Med (Patient's Own Drops) 0 drop OU BID [facility] Last Admin: 03/26/17 10:40 Dose: 1 drop Home Med (Patient's Own Drops) 0 drop OU HS [facility] Last Admin: 03/26/17 00:24 Dose: 1 drop Metronidazole (Flagyl) 500 mg in 100 mls @ 100 mls/hr IVPB Q8 [facility] Last Admin: 03/26/17 06:05 Dose: 100 mls/hr BUPIVACAINE 0.125%/0.9% NACL (Bupivacaine-Ns 0.125% On-Q Pattern Lease Inspector) 600 mls @ 4 mls/ hr IJ ONCE ONE Stop: 03/27/17 15:29 Last Admin: 03/21/17 12:17 Dose: 4 mls/hr Cefepime HCl (Maxipime Iv 2 Gm Premix) 2 gm in 100 mls @ 100 mls/hr IVPB Q8H [facility] Stop: 03/26/17 20:01 Last Admin: 03/26/17 03:24 Dose: 100 mls/hr Vancomycin/Sodium Chloride (Vancomycin 1 Gm/Ns 200 Ml) 1 gm in 200 mls @ 133.333 mls/hr IVPB Q24H [facility] Stop: 03/29/17 09:01 Last Admin: 03/26/17 10:39 Dose: 133.333 mls/hr Dextrose/Sodium Chloride (Dextrose 5%/0.9% Ns 1000 Ml) 1,000 mls @ 42 mls/hr IV .[id number] [facility] Last Admin: 03/26/17 10:39 Dose: 42 mls/hr Losartan Potassium (Cozaar) 25 mg PO DAILY [facility] Last Admin: 03/26/17 10:40 Dose: 25 mg Metoprolol Tartrate (Lopressor) 25 mg PO BID [facility] Last Admin: 03/26/17 10:40 Dose: 25 mg Ondansetron HCl (Zofran Inj) 4 mg IVP Q4H PRN PRN Reason: Nausea/Vomiting Last Admin: 03/16/17 13:07 Dose: 4 mg Pantoprazole Sodium (Protonix Inj) 40 mg IVP DAILY [facility] Last Admin: 03/26/17 10:40 Dose: 40 mg - Labs Labs: 03/26/17 06:11 03/26/17 06:11 PT 19.4 SECONDS (9.7-12.2) H D 03/17/17 20:14 INR 1.7 D 03/17/17 20:14 APTT 35 SECONDS (21-34) H D 03/17/17 20:14 Attending/Attestation - Attestation I have personally seen and examined this patient.: Yes I have fully participated in the care of the patient.: Yes I have reviewed all pertinent clinical information, including history, physical exam and plan: Yes Notes (Text): Pt was seen and examined at bedside Agree with above note and assessment Pt is improving clinically CT scan of A/P with PO and IV contrast to r/o collection Change antibiotics to [place] Plan d.w pt and ICU attending.
--- NOTE | 2017-03-24 20:04 | CP.PCM.PN ---
Subjective - Date & Time of Evaluation Date of Evaluation: 03/24/17 Time of Evaluation: 12:00 - Subjective Subjective: Comfortable, family at bedside Discussed at length with the patient and his family his stage IV colon cancer diagnosis and treatment. Objective - Vital Signs/Intake and Output Vital Signs (last 24 hours): Temp Pulse Resp BP Pulse Ox 98.2 F 76 28 H 140/99 H 99 03/24/17 16:00 03/24/17 19:04 03/24/17 19:04 03/24/17 19:04 03/24/17 19:04 Intake and Output: 03/24/17 03/25/17 18:59 06:59 Intake Total 1424 4 Output Total 555 Balance 869 4 - Medications Medications: Current Medications Albuterol/Ipratropium (Duoneb 3 Mg/0.5 Mg (3 Ml) Ud) 3 ml INH RQ6 [facility] Last Admin: 03/24/17 13:37 Dose: 3 ml Benzocaine/Menthol (Cepacol Sore Throat) 1 michael MT Q4 PRN PRN Reason: Sore Throat Last Admin: 03/24/17 09:18 Dose: 1 michael Enoxaparin Sodium (Lovenox) 30 mg SC DAILY [facility] Last Admin: 03/24/17 09:16 Dose: 30 mg Home Med (Patient's Own Drops) 0 drop OU BID [facility] Last Admin: 03/24/17 17:33 Dose: 1 drop Home Med (Patient's Own Drops) 0 drop OU HS [facility] Last Admin: 03/23/17 21:15 Dose: 1 drop Metronidazole (Flagyl) 500 mg in 100 mls @ 100 mls/hr IVPB Q8 [facility] Last Admin: 03/24/17 14:31 Dose: 100 mls/hr BUPIVACAINE 0.125%/0.9% NACL (Bupivacaine-Ns 0.125% On-Q Scanning Clerk) 600 mls @ 4 mls/ hr IJ ONCE ONE Stop: 03/27/17 15:29 Last Admin: 03/21/17 12:17 Dose: 4 mls/hr Cefepime HCl (Maxipime Iv 2 Gm Premix) 2 gm in 100 mls @ 100 mls/hr IVPB Q8H [facility] Stop: 03/26/17 20:01 Last Admin: 03/24/17 20:00 Dose: 100 mls/hr Vancomycin/Sodium Chloride (Vancomycin 1 Gm/Ns 200 Ml) 1 gm in 200 mls @ 133.333 mls/hr IVPB Q24H [facility] Stop: 03/29/17 09:01 Last Admin: 03/24/17 09:44 Dose: 133.333 mls/hr Losartan Potassium (Cozaar) 25 mg PO DAILY [facility] Last Admin: 03/24/17 09:16 Dose: 25 mg Metoprolol Tartrate (Lopressor) 25 mg PO BID [facility] Last Admin: 03/24/17 17:33 Dose: 25 mg Ondansetron HCl (Zofran Inj) 4 mg IVP Q4H PRN PRN Reason: Nausea/Vomiting Last Admin: 03/16/17 13:07 Dose: 4 mg Pantoprazole Sodium (Protonix Inj) 40 mg IVP DAILY [facility] Last Admin: 03/24/17 09:17 Dose: 40 mg - Labs Labs: 03/24/17 06:36 03/24/17 06:35 PT 19.4 SECONDS (9.7-12.2) H D 03/17/17 20:14 INR 1.7 D 03/17/17 20:14 APTT 35 SECONDS (21-34) H D 03/17/17 20:14 - Head Exam Head Exam: ATRAUMATIC - Eye Exam Eye Exam: Normal appearance - ENT Exam ENT Exam: Mucous Membranes Dry - Respiratory Exam Respiratory Exam: NORMAL BREATHING PATTERN - Cardiovascular Exam Cardiovascular Exam: +S1, +S2 - GI/Abdominal Exam GI & Abdominal Exam: Normal Bowel Sounds Assessment and Plan (1) Colon cancer Assessment & Plan: lung, liver, LN, omental metastasis will add KRAS outpatient treatment Status: Acute
--- NOTE | 2017-03-24 20:14 | CP.PCM.PN ---
Subjective - Date & Time of Evaluation Date of Evaluation: 03/24/17 Time of Evaluation: 05:00 - Subjective Subjective: dictated Objective - Vital Signs/Intake and Output Vital Signs (last 24 hours): Temp Pulse Resp BP Pulse Ox 98.2 F 76 28 H 140/99 H 99 03/24/17 16:00 03/24/17 19:04 03/24/17 19:04 03/24/17 19:04 03/24/17 19:04 Intake and Output: 03/24/17 03/25/17 18:59 06:59 Intake Total 1424 4 Output Total 555 Balance 869 4 - Medications Medications: Current Medications Albuterol/Ipratropium (Duoneb 3 Mg/0.5 Mg (3 Ml) Ud) 3 ml INH RQ6 [facility] Last Admin: 03/24/17 13:37 Dose: 3 ml Benzocaine/Menthol (Cepacol Sore Throat) 1 michael MT Q4 PRN PRN Reason: Sore Throat Last Admin: 03/24/17 09:18 Dose: 1 michael Enoxaparin Sodium (Lovenox) 30 mg SC DAILY [facility] Last Admin: 03/24/17 09:16 Dose: 30 mg Home Med (Patient's Own Drops) 0 drop OU BID [facility] Last Admin: 03/24/17 17:33 Dose: 1 drop Home Med (Patient's Own Drops) 0 drop OU HS [facility] Last Admin: 03/23/17 21:15 Dose: 1 drop Metronidazole (Flagyl) 500 mg in 100 mls @ 100 mls/hr IVPB Q8 [facility] Last Admin: 03/24/17 14:31 Dose: 100 mls/hr BUPIVACAINE 0.125%/0.9% NACL (Bupivacaine-Ns 0.125% On-Q Lube Worker) 600 mls @ 4 mls/ hr IJ ONCE ONE Stop: 03/27/17 15:29 Last Admin: 03/21/17 12:17 Dose: 4 mls/hr Cefepime HCl (Maxipime Iv 2 Gm Premix) 2 gm in 100 mls @ 100 mls/hr IVPB Q8H [facility] Stop: 03/26/17 20:01 Last Admin: 03/24/17 20:00 Dose: 100 mls/hr Vancomycin/Sodium Chloride (Vancomycin 1 Gm/Ns 200 Ml) 1 gm in 200 mls @ 133.333 mls/hr IVPB Q24H [facility] Stop: 03/29/17 09:01 Last Admin: 03/24/17 09:44 Dose: 133.333 mls/hr Losartan Potassium (Cozaar) 25 mg PO DAILY [facility] Last Admin: 03/24/17 09:16 Dose: 25 mg Metoprolol Tartrate (Lopressor) 25 mg PO BID [facility] Last Admin: 03/24/17 17:33 Dose: 25 mg Ondansetron HCl (Zofran Inj) 4 mg IVP Q4H PRN PRN Reason: Nausea/Vomiting Last Admin: 03/16/17 13:07 Dose: 4 mg Pantoprazole Sodium (Protonix Inj) 40 mg IVP DAILY [facility] Last Admin: 03/24/17 09:17 Dose: 40 mg - Labs Labs: 03/24/17 06:36 03/24/17 06:35 PT 19.4 SECONDS (9.7-12.2) H D 03/17/17 20:14 INR 1.7 D 03/17/17 20:14 APTT 35 SECONDS (21-34) H D 03/17/17 20:14
[2017-03-24] MEDS: TRAVATAN OU SCH (21:44)
--- NOTE | 2017-03-24 21:45 | CT ---
EXAM: CT Abdomen and Pelvis Without Intravenous Contrast EXAM DATE/TIME: 03/24/2017 2:13 PM CLINICAL HISTORY: 62 years old, male; Condition or disease; Other: Upper gi bleed; Additional info: Post op leukocytosis TECHNIQUE: Axial computed tomography images of the abdomen and pelvis without intravenous contrast. All CT scans at this facility use one or more dose reduction techniques, viz.: automated exposure control; ma/kV adjustment per patient size (including targeted exams where dose is matched to indication; i.e. head); or iterative reconstruction technique. Coronal and sagittal reformatted images were created and reviewed. COMPARISON: CT - ABD PELVIS W/O PO OR IV CONT 2017-03-20 17:29 FINDINGS: Lower thorax: Heart size is normal. There is a small to moderate right pleural effusion. There is minimal left pleural effusion. There has been partial reexpansion of the lower lobes. There is residual atelectasis/infiltrate. There continue to be multiple bilateral pulmonary nodules too numerous to count. ABDOMEN: Liver: There are multiple low attenuation hepatic masses in both lobes of the liver consistent with metastases. Gallbladder and bile ducts: Gallbladder is collapsed. There is minimal pericholecystic fluid/edema. Common duct is unremarkable. Pancreas: Pancreas is mildly atrophic. Spleen: unremarkable Adrenals: There is nodular thickening of both adrenals. Kidneys and ureters: Kidneys and ureters are unremarkable. Stomach and bowel: Stomach is partially distended with an air-fluid level. Rotation is normal. Small bowel is dilated with air-fluid levels. Dilatation has increased since the prior study. Exact transition point is not visualized. Distal and terminal ileum are collapsed.Ileocecal region is unremarkable. Appendix and terminal ileum are unremarkable. There is contrast and stool in the colon. There is a transverse colon colostomy in the left upper quadrant. There is been partial left hemicolectomy. There is a Lee pouch in the pelvis. There is sigmoid diverticulosis.. Appendix: See above. PELVIS: Bladder: Bladder is partially distended Reproductive: Seminal vesicles and prostate are unremarkable. ABDOMEN and PELVIS: Intraperitoneal space. There is no free air. There is a small amount of free fluid in the left flank.There is a 3 x 2.4 cm nodular partially cystic mass in the left lower quadrant adjacent to the iliac vessels. Bones/joints: There is orthopedic hardware in the left femur.There are degenerative changes in the osseus structures. Soft tissues: unremarkable Vasculature: An IVC filter is in place.There are vascular calcifications. Lymph nodes: There are shoddy para-aortic nodes. Tubes, lines and devices: There is a surgical drain entering from a right lower quadrant approach. Tip of the drain is in the left flank. There are multiple surgical skin clips in the abdominal wall. There is postoperative edema in the abdominal wall. IMPRESSION: Partial left hemicolectomy with transverse colon colostomy in the left upper quadrant; increasing proximal and mid small bowel dilatation with distal decompression suggesting small bowel obstruction, ileus less likely Pulmonary nodules and hepatic masses consistent with metastatic disease Interval improvement in aeration at the lung bases with residual airspace disease and effusions Probable small hematoma in the left lower quadrant Additional nonemergent findings as described above.
--- NOTE | 2017-03-25 00:39 | PN ---
DATE: SUBJECTIVE: Patient seen today. He was extubated. He has been tolerating it. He is going to go for a CAT scan of abdomen. He has dropped his hemoglobin a little bit and white count has increased. We will want to see if he has any abscess or any collection because lung-richards he is doing better. He remains still drowsy. PHYSICAL EXAMINATION NECK: Supple. LUNGS: Clear. Occasional wheeze. HEART: S1, S2 regular. ABDOMEN: Remains prominent. He has a MARIBELL drain, which has serous fluid and colostomy is there. EXTREMITIES: He has Venodyne boots present. LABORATORY DATA: Labs are noted. Labs show white count is 26.5, hemoglobin 8.8, hematocrit 26.5, platelet count is 305, bands are 8, they are decreased from before, however. Chemistry shows sodium 142, potassium 3.5, chloride 106, CO2 is 28, BUN is 46, creatinine 1.3. Sputum has some yeast. Otherwise, he was going to go for the CAT scan when I saw him and he had a chest x-ray today and the chest x-ray shows calcification of the aorta, cardiomegaly and he had a prominent, diffuse, ill-defined consolidative opacities throughout the lung plata most prominent in right mid lower lung field as well as left lung. He had a CAT scan before and it had shown metastasis to the liver as well as to the lungs. It could be that. We will follow. At this time, we have added vancomycin 1 g daily. He remains on cefepime and Flagyl at this time. We will monitor white count. He is status post surgery for obstruction and it looks like recurrent abdominal malignancy with mets to the lung and liver. Cadence Hutchins MD
[2017-03-25] MEDS: Albuterol-Ipratrop 3 mg / 0.5 (3 ml) UD INH SCH ×4 (01:32→19:52)
[2017-03-25] MEDS: Cefepime IV 2 gm in Dextrose 2 GM/100 ML BAG IVPB SCH ×3 (04:09→20:23)
[2017-03-25] MEDS: metroNIDAZOLE IV 500 mg/100 ml 500 MG/100 ML BAG IVPB SCH ×2 (05:32→13:28)
[2017-03-25 06:37] LABS: BASO # 0.2 K/uL (0.0-0.2); BASO % 0.8 % (0.0-2.0); EOS # 0.4 K/uL (0.0-0.7); EOS % 1.6 % (0.0-4.0); LYMPH # 1.3 K/uL (1.0-4.3); LYMPH % 5.2 % (20.0-40.0); MEAN CELL VOLUME 75.3 fL (80.0-94.0); MEAN CORPUSCULAR HEMOGLOBIN 24.8 pg (27.0-31.0); MEAN PLATELET VOLUME 8.9 fL (7.2-11.7); MONO # 1.5 K/uL (0.0-0.8); MONO % 5.9 % (0.0-10.0); NEUT # 22.4 K/uL (1.8-7.0); NEUT % 86.5 % (50.0-75.0); NRBC % 0.1 % (0.0-2.0); PLATELET COUNT 389 K/uL (130-400); RBC 3.64 Mil/uL (4.40-5.90); RED CELL DISTRIBUTION WIDTH 18.7 % (11.5-14.5); WHITE BLOOD COUNT 25.9 K/uL (4.8-10.8)
[2017-03-25 06:57] LABS: ALB/GLOB RATIO 0.9 (1.0-2.1); ALBUMIN 3.2 g/dL (3.5-5.0); ALT/SGPT 29 U/L (21-72); AST/SGOT 58 U/L (17-59); BLOOD UREA NITROGEN 42 mg/dL (9-20); CALCIUM 8.3 mg/dl (8.6-10.4); GFR AFRICAN-AMERICAN > 60; GFR NON-AFRICAN AMERICAN > 60; MAGNESIUM 1.8 mg/dL (1.6-2.3)
[2017-03-25] MEDS: Potassium Chloride 20 mEq ER Tab PO ONE ×4 (08:25→10:01)
--- NOTE | 2017-03-25 08:35 | CP.PCM.PN ---
Subjective - Date & Time of Evaluation Date of Evaluation: 03/25/17 Time of Evaluation: 08:10 - Subjective Subjective: Patient remains extubated. Family member, his at bedside. He was ok with this and she also participated with discussion. This is the first time I myself have seen the patient being awake, alert, and appropriately answering questions. He was able to ask about the events of this previous week and we discussed. I explained to him the surgery and then also his ongoing pneumonia and metastatic spread of cancer to his liver and lungs. Because he is now alert and awake, will get palliative care to try to talk to patient and family. Objective - Vital Signs/Intake and Output Vital Signs (last 24 hours): Temp Pulse Resp BP Pulse Ox 98 F 87 25 H 136/84 99 03/25/17 04:00 03/25/17 06:02 03/25/17 06:02 03/25/17 06:02 03/25/17 06:02 Intake and Output: 03/25/17 03/25/17 06:59 18:59 Intake Total 998 54 Output Total 1160 0 Balance -162 54 - Medications Medications: Current Medications Albuterol/Ipratropium (Duoneb 3 Mg/0.5 Mg (3 Ml) Ud) 3 ml INH RQ6 [facility] Last Admin: 03/25/17 08:13 Dose: 3 ml Benzocaine/Menthol (Cepacol Sore Throat) 1 michael MT Q4 PRN PRN Reason: Sore Throat Last Admin: 03/24/17 09:18 Dose: 1 michael Enoxaparin Sodium (Lovenox) 30 mg SC DAILY [facility] Last Admin: 03/24/17 09:16 Dose: 30 mg Home Med (Patient's Own Drops) 0 drop OU BID [facility] Last Admin: 03/24/17 17:33 Dose: 1 drop Home Med (Patient's Own Drops) 0 drop OU HS [facility] Last Admin: 03/24/17 21:44 Dose: 1 drop Metronidazole (Flagyl) 500 mg in 100 mls @ 100 mls/hr IVPB Q8 [facility] Last Admin: 03/25/17 05:32 Dose: 100 mls/hr BUPIVACAINE 0.125%/0.9% NACL (Bupivacaine-Ns 0.125% On-Q Intake Clerk) 600 mls @ 4 mls/ hr IJ ONCE ONE Stop: 03/27/17 15:29 Last Admin: 03/21/17 12:17 Dose: 4 mls/hr Cefepime HCl (Maxipime Iv 2 Gm Premix) 2 gm in 100 mls @ 100 mls/hr IVPB Q8H [facility] Stop: 03/26/17 20:01 Last Admin: 03/25/17 04:09 Dose: 100 mls/hr Vancomycin/Sodium Chloride (Vancomycin 1 Gm/Ns 200 Ml) 1 gm in 200 mls @ 133.333 mls/hr IVPB Q24H [facility] Stop: 03/29/17 09:01 Last Admin: 03/24/17 09:44 Dose: 133.333 mls/hr Magnesium Sulfate/Dextrose (Magnesium Sulfate 1 Gm/100 Ml D5w) 1 gm in 100 mls @ 200 mls/hr IVPB ONCE ONE Stop: 03/25/17 09:29 Last Admin: 03/25/17 08:25 Dose: 200 mls/hr Losartan Potassium (Cozaar) 25 mg PO DAILY [facility] Last Admin: 03/24/17 09:16 Dose: 25 mg Metoprolol Tartrate (Lopressor) 25 mg PO BID [facility] Last Admin: 03/24/17 17:33 Dose: 25 mg Ondansetron HCl (Zofran Inj) 4 mg IVP Q4H PRN PRN Reason: Nausea/Vomiting Last Admin: 03/16/17 13:07 Dose: 4 mg Pantoprazole Sodium (Protonix Inj) 40 mg IVP DAILY [facility] Last Admin: 03/24/17 09:17 Dose: 40 mg - Labs Labs: 03/25/17 06:28 03/25/17 06:24 PT 19.4 SECONDS (9.7-12.2) H D 03/17/17 20:14 INR 1.7 D 03/17/17 20:14 APTT 35 SECONDS (21-34) H D 03/17/17 20:14 - Constitutional Appears: Older Than Stated Age, Chronically Ill - Head Exam Head Exam: NORMAL INSPECTION - Eye Exam Eye Exam: EOMI - ENT Exam ENT Exam: Mucous Membranes Moist - Respiratory Exam Respiratory Exam: Decreased Breath Sounds, Rhonchi - Cardiovascular Exam Cardiovascular Exam: REGULAR RHYTHM - GI/Abdominal Exam GI & Abdominal Exam: absent: Guarding, Rigid Additional comments: Colostomy: Large output at this time. MARIBELL drain - Neurological Exam Neurological Exam: Alert, Awake Neuro motor strength exam: Left Upper Extremity: 4, Right Upper Extremity: 4 - Psychiatric Exam Psychiatric exam: Depressed, Flat Affect - Skin Skin Exam: Normal Color, Warm Assessment and Plan - Assessment and Plan (Free Text) Assessment: This is a 62 year old male who came to the hospital on 03/15 with abdominal pain , weight loss, no BMs, and also dark emesis. He was determined to have a a 4.6 x 5 x 7 cm mass that was causing obstruction. This same imaging also suggested a metastatic spread of a cancer to lungs and liver as well. He then underwent a flexible sigmoidscopy on 03/16 and the biopsy showed adenocarcinoma. He underwent an exploratory laparotomy and left hemicolectomy and creation of a colostomy. As of 03/23 I spoke with patient's and updated her about the adenocarcinoma. Prognosis is not good. is not sure about deciding on code status. She is well aware prognosis is poor. 1. 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 03/25: Patient is now very awake and alert. Getting palliative care consult. 03/24: Now POD 6, the tissue from 03/17 has returned showing adenocarcinoma 03/21: Now with colostomy. He is S/P POD 3 of exploratory laparotmy with left hemicolectomy and colostomy. He had takedown of splenic flexure, lysis of adhesions, omentectomy. biopsy. GI consult DR Esparza s/p sigmoidoscopy and biopsy follow biopsy report Patient remains Intubated,todays chext x ray with RLL infiltrate follow up benzene still utility operator recommendation 2. Ventilator dependent respiratory failure 03/24: Now extubated, did ok overnight the tube feeds had to be held temporarily and now is restarted 03/23: Remains on CPAPA/PS settings, still has elevated WBC. is aware of poor prognosis 03/22: He tolerated being on CPAP/pressure support settings without incidence overnight hopefully at some point to be extubated 03/21: At this moment is on CPAP/PS settings He has been on IV cefepime, IV tigecyclin, as well as IV flagly The XRAY from today continuing to show infiltrates sedated on MV,urine out is improving 3. Bilateral lobe pneumonia 03/24: Now extubated, remains on IV abx. WBC is 26, high procalcitonin. The blood pressures are stable for now. 03/23: Again high WBC, on Azithromycin, Cefepime, Flagyl. Blood and trach cultures negative 03/22: WBC count remains elevated with bandemia. Continue with IV abx. 03/21: As mentioned above, continue with ventilation, follow CXRAYs, IV abx The cultures remain negative at this moment 4. Acute Kidney Injury 03/25: 03/22: Creatine decreased to 1.2, urine out put 3,500 03/21: Creatine 1.5 today, urine out put was 5,900 over 24hrs 5. Anemia monitor hemoglobin type and screen and follow hemoglobin 6. DVT prophylaxis-SCDs GI prophylaxis-Protonix
[2017-03-25] MEDS ORDERED: Magnesium Sulfate 1 gm in D5W 1 GM/100 ML BAG IVPB ONE (09:00)
[2017-03-25] MEDS: Enoxaparin 30 mg Syringe SC SCH (09:47)
[2017-03-25] MEDS: COMBIGAN OU SCH ×2 (09:50→17:36)
[2017-03-25] MEDS: Dextrose 5%/0.9% NS 1,000 ML IV SCH (09:56)
[2017-03-25] MEDS: Vancomycin 1 gm/NS 200 ml 1 GM/200 ML BAG IVPB SCH (09:59)
[2017-03-25 11:42] LABS: BANDS 13 % (0-2); LYMPHOCYTE 5 % (20-40); MONOCYTE 7 % (0-10); NEUTROPHIL 75 % (50-75); TOTAL CELLS COUNTED 100
[2017-03-25 11:43] LABS: PLATELET ESTIMATE NORMAL (NORMAL)
[2017-03-25 11:44] LABS: ANISOCYTOSIS MODERATE
[2017-03-25 11:45] LABS: HYPOCHROMIC SLIGHT; LARGE PLATELETS PRESENT; MICROCYTOSIS SLIGHT; PLATELET CLUMPS PRESENT; POLYCHROMIC SLIGHT; TARGET CELLS SLIGHT
--- NOTE | 2017-03-25 11:56 | CP.PCM.PN ---
<Reema Patel - Last Filed: 03/25/17 13:03> Subjective - Date & Time of Evaluation Date of Evaluation: 03/25/17 Time of Evaluation: 09:00 - Subjective Subjective: PGY 3 Progress Note- Heme/Onc Service - Dr. Quiros: Patient seen and examined in the ICU this AM. Patient is up and walking with physical therapy. As per nursing, patient has been feeling down since family meeting. No acute events over night. Objective - Vital Signs/Intake and Output Vital Signs (last 24 hours): Temp Pulse Resp BP Pulse Ox 98 F 87 25 H 136/84 99 03/25/17 04:00 03/25/17 06:02 03/25/17 06:02 03/25/17 06:02 03/25/17 06:02 Intake and Output: 03/25/17 03/25/17 06:59 18:59 Intake Total 998 54 Output Total 1160 0 Balance -162 54 - Medications Medications: Current Medications Albuterol/Ipratropium (Duoneb 3 Mg/0.5 Mg (3 Ml) Ud) 3 ml INH RQ6 [facility] Last Admin: 03/25/17 08:13 Dose: 3 ml Benzocaine/Menthol (Cepacol Sore Throat) 1 michael MT Q4 PRN PRN Reason: Sore Throat Last Admin: 03/24/17 09:18 Dose: 1 michael Home Med (Patient's Own Drops) 0 drop OU BID [facility] Last Admin: 03/25/17 09:50 Dose: 1 drop Home Med (Patient's Own Drops) 0 drop OU HS [facility] Last Admin: 03/24/17 21:44 Dose: 1 drop Metronidazole (Flagyl) 500 mg in 100 mls @ 100 mls/hr IVPB Q8 [facility] Last Admin: 03/25/17 05:32 Dose: 100 mls/hr BUPIVACAINE 0.125%/0.9% NACL (Bupivacaine-Ns 0.125% On-Q Bond Underwriter) 600 mls @ 4 mls/ hr IJ ONCE ONE Stop: 03/27/17 15:29 Last Admin: 03/21/17 12:17 Dose: 4 mls/hr Cefepime HCl (Maxipime Iv 2 Gm Premix) 2 gm in 100 mls @ 100 mls/hr IVPB Q8H [facility] Stop: 03/26/17 20:01 Last Admin: 03/25/17 04:09 Dose: 100 mls/hr Vancomycin/Sodium Chloride (Vancomycin 1 Gm/Ns 200 Ml) 1 gm in 200 mls @ 133.333 mls/hr IVPB Q24H [facility] Stop: 03/29/17 09:01 Last Admin: 03/25/17 09:59 Dose: 133.333 mls/hr Potassium Chloride (Potassium Chloride 10 Meq/100 Ml) 10 meq in 100 mls @ 100 mls/hr IVPB Q1H [facility] Stop: 03/25/17 13:44 Last Admin: 03/25/17 09:54 Dose: 100 mls/hr Dextrose/Sodium Chloride (Dextrose 5%/0.9% Ns 1000 Ml) 1,000 mls @ 42 mls/hr IV .[id number] [facility] Last Admin: 03/25/17 09:56 Dose: 42 mls/hr Losartan Potassium (Cozaar) 25 mg PO DAILY [facility] Last Admin: 03/25/17 09:58 Dose: Not Given Metoprolol Tartrate (Lopressor) 25 mg PO BID [facility] Last Admin: 03/25/17 09:58 Dose: Not Given Ondansetron HCl (Zofran Inj) 4 mg IVP Q4H PRN PRN Reason: Nausea/Vomiting Last Admin: 03/16/17 13:07 Dose: 4 mg Pantoprazole Sodium (Protonix Inj) 40 mg IVP DAILY [facility] Last Admin: 03/25/17 09:47 Dose: 40 mg - Labs Labs: 03/25/17 06:28 03/25/17 06:24 PT 19.4 SECONDS (9.7-12.2) H D 03/17/17 20:14 INR 1.7 D 03/17/17 20:14 APTT 35 SECONDS (21-34) H D 03/17/17 20:14 - Constitutional Appears: No Acute Distress - Head Exam Head Exam: NORMAL INSPECTION, NORMOCEPHALIC - Eye Exam Eye Exam: EOMI, Normal appearance - ENT Exam ENT Exam: Mucous Membranes Moist - Respiratory Exam Respiratory Exam: Clear to Ausculation Bilateral. absent: Rhonchi, Wheezes - Cardiovascular Exam Cardiovascular Exam: REGULAR RHYTHM, +S1 - GI/Abdominal Exam GI & Abdominal Exam: Soft Additional comments: +colostomy bag - Extremities Exam Extremities Exam: Full ROM - Neurological Exam Neurological Exam: Alert, Awake, Oriented x3 - Psychiatric Exam Psychiatric exam: Flat Affect, Normal Mood - Skin Skin Exam: Warm Assessment and Plan - Assessment and Plan (Free Text) Assessment: (1) Colon cancer Assessment & Plan: Stage IV colon cancer Patient with lung, liver, LN, omental metastasis Dr. Quiros had conversation with patient and family yesterday regarding diagnosis and treatment [facility] outpatient treatment Discussed with Dr. Quiros. Recommendations above as per attending. <Chip Quiros - Last Filed: 03/25/17 22:36> Objective - Vital Signs/Intake and Output Vital Signs (last 24 hours): Temp Pulse Resp BP Pulse Ox 98.2 F 92 H 24 128/80 98 03/25/17 20:00 03/25/17 22:00 03/25/17 22:00 03/25/17 22:02 03/25/17 22:00 Intake and Output: 03/25/17 03/26/17 18:59 06:59 Intake Total 1238 226 Output Total 1520 120 Balance -282 106 - Medications Medications: Current Medications Albuterol/Ipratropium (Duoneb 3 Mg/0.5 Mg (3 Ml) Ud) 3 ml INH RQ6 [facility] Last Admin: 03/25/17 19:52 Dose: 3 ml Benzocaine/Menthol (Cepacol Sore Throat) 1 michael MT Q4 PRN PRN Reason: Sore Throat Last Admin: 03/24/17 09:18 Dose: 1 michael Home Med (Patient's Own Drops) 0 drop OU BID [facility] Last Admin: 03/25/17 17:36 Dose: 1 drop Home Med (Patient's Own Drops) 0 drop OU HS [facility] Last Admin: 03/24/17 21:44 Dose: 1 drop Metronidazole (Flagyl) 500 mg in 100 mls @ 100 mls/hr IVPB Q8 [facility] Last Admin: 03/25/17 13:28 Dose: 100 mls/hr BUPIVACAINE 0.125%/0.9% NACL (Bupivacaine-Ns 0.125% On-Q Bond Underwriter) 600 mls @ 4 mls/ hr IJ ONCE ONE Stop: 03/27/17 15:29 Last Admin: 03/21/17 12:17 Dose: 4 mls/hr Cefepime HCl (Maxipime Iv 2 Gm Premix) 2 gm in 100 mls @ 100 mls/hr IVPB Q8H [facility] Stop: 03/26/17 20:01 Last Admin: 03/25/17 20:23 Dose: 100 mls/hr Vancomycin/Sodium Chloride (Vancomycin 1 Gm/Ns 200 Ml) 1 gm in 200 mls @ 133.333 mls/hr IVPB Q24H [facility] Stop: 03/29/17 09:01 Last Admin: 03/25/17 09:59 Dose: 133.333 mls/hr Dextrose/Sodium Chloride (Dextrose 5%/0.9% Ns 1000 Ml) 1,000 mls @ 42 mls/hr IV .[id number] [facility] Last Admin: 03/25/17 09:56 Dose: 42 mls/hr Losartan Potassium (Cozaar) 25 mg PO DAILY [facility] Last Admin: 03/25/17 09:58 Dose: Not Given Metoprolol Tartrate (Lopressor) 25 mg PO BID [facility] Last Admin: 03/25/17 17:35 Dose: 25 mg Ondansetron HCl (Zofran Inj) 4 mg IVP Q4H PRN PRN Reason: Nausea/Vomiting Last Admin: 03/16/17 13:07 Dose: 4 mg Pantoprazole Sodium (Protonix Inj) 40 mg IVP DAILY [facility] Last Admin: 03/25/17 09:47 Dose: 40 mg - Labs Labs: 03/25/17 06:28 03/25/17 06:24 PT 19.4 SECONDS (9.7-12.2) H D 03/17/17 20:14 INR 1.7 D 03/17/17 20:14 APTT 35 SECONDS (21-34) H D 03/17/17 20:14 Assessment and Plan (1) Colon cancer Status: Acute - Assessment and Plan (Free Text) Assessment: Pt seen and examined, agree with residents note. Stage IV colon cancer s/p colon resection. Outpatient chemotherapy.
--- NOTE | 2017-03-25 13:29 | CP.PCM.PN ---
Subjective - Date & Time of Evaluation Date of Evaluation: 03/25/17 Time of Evaluation: 13:22 - Subjective Subjective: More alert; no new complaint UO> 1000ml/24 hrs Creat has normalized K remains low- needs repletion Objective - Vital Signs/Intake and Output Vital Signs (last 24 hours): Temp Pulse Resp BP Pulse Ox 97.4 F L 92 H 29 H 127/75 98 03/25/17 12:00 03/25/17 13:02 03/25/17 13:02 03/25/17 13:02 03/25/17 13:00 Intake and Output: 03/25/17 03/25/17 06:59 18:59 Intake Total 998 766 Output Total 1160 720 Balance -162 46 - Medications Medications: Current Medications Albuterol/Ipratropium (Duoneb 3 Mg/0.5 Mg (3 Ml) Ud) 3 ml INH RQ6 [facility] Last Admin: 03/25/17 08:13 Dose: 3 ml Benzocaine/Menthol (Cepacol Sore Throat) 1 michael MT Q4 PRN PRN Reason: Sore Throat Last Admin: 03/24/17 09:18 Dose: 1 michael Home Med (Patient's Own Drops) 0 drop OU BID [facility] Last Admin: 03/25/17 09:50 Dose: 1 drop Home Med (Patient's Own Drops) 0 drop OU HS [facility] Last Admin: 03/24/17 21:44 Dose: 1 drop Metronidazole (Flagyl) 500 mg in 100 mls @ 100 mls/hr IVPB Q8 [facility] Last Admin: 03/25/17 05:32 Dose: 100 mls/hr BUPIVACAINE 0.125%/0.9% NACL (Bupivacaine-Ns 0.125% On-Q Managed Care Director) 600 mls @ 4 mls/ hr IJ ONCE ONE Stop: 03/27/17 15:29 Last Admin: 03/21/17 12:17 Dose: 4 mls/hr Cefepime HCl (Maxipime Iv 2 Gm Premix) 2 gm in 100 mls @ 100 mls/hr IVPB Q8H [facility] Stop: 03/26/17 20:01 Last Admin: 03/25/17 12:06 Dose: 100 mls/hr Vancomycin/Sodium Chloride (Vancomycin 1 Gm/Ns 200 Ml) 1 gm in 200 mls @ 133.333 mls/hr IVPB Q24H [facility] Stop: 03/29/17 09:01 Last Admin: 03/25/17 09:59 Dose: 133.333 mls/hr Potassium Chloride (Potassium Chloride 10 Meq/100 Ml) 10 meq in 100 mls @ 100 mls/hr IVPB Q1H [facility] Stop: 03/25/17 13:44 Last Admin: 03/25/17 12:05 Dose: 100 mls/hr Dextrose/Sodium Chloride (Dextrose 5%/0.9% Ns 1000 Ml) 1,000 mls @ 42 mls/hr IV .[id number] [facility] Last Admin: 03/25/17 09:56 Dose: 42 mls/hr Losartan Potassium (Cozaar) 25 mg PO DAILY [facility] Last Admin: 03/25/17 09:58 Dose: Not Given Metoprolol Tartrate (Lopressor) 25 mg PO BID [facility] Last Admin: 03/25/17 09:58 Dose: Not Given Ondansetron HCl (Zofran Inj) 4 mg IVP Q4H PRN PRN Reason: Nausea/Vomiting Last Admin: 03/16/17 13:07 Dose: 4 mg Pantoprazole Sodium (Protonix Inj) 40 mg IVP DAILY [facility] Last Admin: 03/25/17 09:47 Dose: 40 mg - Labs Labs: 03/25/17 06:28 03/25/17 06:24 PT 19.4 SECONDS (9.7-12.2) H D 03/17/17 20:14 INR 1.7 D 03/17/17 20:14 APTT 35 SECONDS (21-34) H D 03/17/17 20:14 - Constitutional Appears: No Acute Distress, Chronically Ill - Head Exam Head Exam: ATRAUMATIC, NORMAL INSPECTION - Eye Exam Eye Exam: EOMI, Normal appearance - Neck Exam Neck Exam: Normal Inspection. absent: Tenderness - Respiratory Exam Respiratory Exam: Clear to Ausculation Bilateral, NORMAL BREATHING PATTERN - GI/Abdominal Exam GI & Abdominal Exam: Soft. absent: Tenderness - Extremities Exam Extremities Exam: Normal Inspection. absent: Tenderness - Neurological Exam Neurological Exam: Awake, CN II-XII Intact - Skin Skin Exam: Dry, Warm Assessment and Plan (1) Colon cancer Status: Acute (2) JENNY (acute kidney injury) Status: Acute (3) SBO (small bowel obstruction) Status: Acute (4) Dehydration Status: Acute (5) SBO (small bowel obstruction) Status: Acute - Assessment and Plan (Free Text) Plan: continue IV D5NS fluids Replete K monitor lytes closely
--- NOTE | 2017-03-25 14:25 | CP.CCUPN ---
<Luis Kelly - Last Filed: 03/25/17 17:47> CCU Subjective - Physician Review Subjective (Free Text): 03/25/17 14:16 patient seen and examined at bedside OOB to chair depressed about condition will continue PT tolerating feeds BM thru colostomy CCU Objective - Vital Signs / Intake & Output Vital Signs (Last 4 hours): Vital Signs Temp Pulse Resp BP Pulse Ox 03/25/17 13:02 92 H 29 H 127/75 03/25/17 13:00 92 H 29 H 98 03/25/17 12:27 95 H 25 H 129/86 98 03/25/17 12:02 95 H 33 H 125/76 98 03/25/17 12:00 97.4 F L 96 H 29 H 99 03/25/17 11:43 126/82 03/25/17 11:42 99 H 22 97 03/25/17 11:00 93 H 32 H 98 Intake and Output (Last 8hrs): Intake & Output 03/24/17 03/25/17 03/25/17 22:59 06:59 14:59 Intake Total 1332 582 912 Output Total 240 1010 1020 Balance 1092 -428 -108 Weight 195 lb 8.8 oz Intake: Intake, IV Amount 232 232 812 Left Antecubital 384 right forearm 200 200 400 upper midabdomen on-Q 32 32 28 pump Oral 1100 350 100 Output: Drainage 30 60 20 Right Lower Abdomen 30 60 20 Urine 210 350 500 Urethral (Fox) 60 Urine, Voided 150 350 500 Stool 600 500 Other: # Bowel Movements 1 - Physical Exam Head: Positive for: Atraumatic, Normocephalic Pupils: Positive for: PERRL Extroacular Muscles: Positive for: EOMI Conjunctiva: Positive for: Normal Mouth: Positive for: Moist Mucous Membranes Neck: Positive for: Normal Range of Motion Respiratory/Chest: Positive for: Clear to Auscultation, Accessory Muscle Use Cardiovascular: Positive for: Regular Rate and Rhythm Abdomen: Positive for: Normal Bowel Sounds. Negative for: Tenderness, Distention, Peritoneal Signs Lower Extremity: Positive for: Other (tvp) Psychiatric: Positive for: Alert, Oriented x 3 - Medications Active Medications: Active Medications Generic Name Dose Route Start Last Admin Trade Name Freq PRN Reason Stop Dose Admin Albuterol/Ipratropium 3 ml 03/18/17 14:00 03/25/17 13:32 Duoneb 3 Mg/0.5 Mg (3 Ml) Ud INH 3 ml RQ6 MARC Administration Benzocaine/Menthol 1 michael 03/24/17 07:47 03/24/17 09:18 Cepacol Sore Throat MT 1 michael Q4 PRN Administration Sore Throat Home Med 0 drop 03/15/17 21:15 03/25/17 09:50 Patient's Own Drops OU 1 drop BID MARC Administration Home Med 0 drop 03/15/17 22:00 03/24/17 21:44 Patient's Own Drops OU 1 drop HS MARC Administration Metronidazole 500 mg in 100 mls @ 100 mls/hr 03/15/17 14:00 03/25/17 13:28 Flagyl IVPB 100 mls/hr Q8 MARC Administration BUPIVACAINE 0.125%/0.9% NACL 600 mls @ 4 mls/hr 03/21/17 09:30 03/21/17 12:17 Bupivacaine-Ns 0.125% On-Q Rn Discharge IJ 03/27/17 15:29 4 mls/hr ONCE ONE Administration Cefepime HCl 2 gm in 100 mls @ 100 mls/hr 03/21/17 20:00 03/25/17 12:06 Maxipime Iv 2 Gm Premix IVPB 03/26/17 20:01 100 mls/hr Q8H MARC Administration Vancomycin/Sodium Chloride 1 gm in 200 mls @ 133.333 mls/hr 03/24/17 09:00 09:59 Vancomycin 1 Gm/Ns 200 Ml IVPB 03/29/17 09:01 133.333 mls/hr Q24H MARC Administration Dextrose/Sodium Chloride 1,000 mls @ 42 mls/hr 03/25/17 09:45 03/25/17 09:56 Dextrose 5%/0.9% Ns 1000 Ml IV 42 mls/hr .[id number] MARC Administration Losartan Potassium 25 mg 03/22/17 12:30 03/25/17 09:58 Cozaar PO Not Given DAILY MARC Metoprolol Tartrate 25 mg 03/21/17 10:00 03/25/17 09:58 Lopressor PO Not Given BID MARC Ondansetron HCl 4 mg 03/15/17 08:52 03/16/17 13:07 Zofran Inj IVP 4 mg Q4H PRN Administration Nausea/Vomiting Pantoprazole Sodium 40 mg 03/17/17 10:00 03/25/17 09:47 Protonix Inj IVP 40 mg DAILY MARC Administration - Patient Studies Lab Studies: Microbiology Studies 03/23/17 09:54 Urine Culture - Final Urine No Growth (<1,000 CFU/ML) 03/22/17 09:31 Gram Stain - Final Trachasp Sputum Culture - Final Yeast Species Lab Studies 03/25/17 03/25/17 Range/Units 06:28 06:24 WBC 25.9 H (4.8-10.8) K/uL RBC 3.64 L (4.40-5.90) Mil/uL Hgb 9.0 L (12.0-18.0) g/dL Hct 27.4 L (35.0-51.0) % MCV 75.3 L (80.0-94.0) fL MCH 24.8 L (27.0-31.0) pg MCHC 33.0 (33.0-37.0) g/dL RDW 18.7 H (11.5-14.5) % Plt Count 389 (130-400) K/uL MPV 8.9 (7.2-11.7) fL Neut % (Auto) 86.5 H (50.0-75.0) % Lymph % (Auto) 5.2 L (20.0-40.0) % [place] % (Auto) 5.9 (0.0-10.0) % Eos % (Auto) 1.6 (0.0-4.0) % Baso % (Auto) 0.8 (0.0-2.0) % Neut # 22.4 H (1.8-7.0) K/uL Lymph # 1.3 (1.0-4.3) K/uL [place] # 1.5 H (0.0-0.8) K/uL Eos # 0.4 (0.0-0.7) K/uL Baso # 0.2 (0.0-0.2) K/uL Neutrophils % (Manual) 75 (50-75) % Band Neutrophils % 13 H* (0-2) % Lymphocytes % (Manual) 5 L (20-40) % Monocytes % (Manual) 7 (0-10) % Platelet Estimate Normal (NORMAL) Plt Clumps, EDTA Present Large Platelets Present Polychromasia Slight Hypochromasia (manual) Slight Anisocytosis (manual) Moderate Microcytosis (manual) Slight Target Cells Slight Sodium 136 (132-148) mmol/L Potassium 3.5 L (3.6-5.2) mmol/L Chloride 104 (98-107) mmol/L Carbon Dioxide 24 (22-30) mmol/L Anion Gap 11 (10-20) BUN 42 H (9-20) mg/dL Creatinine 1.1 (0.8-1.5) mg/dL Est GFR ( Amer) > 60 Est GFR (Non-Af Amer) > 60 Random Glucose 109 (75-110) mg/dL Calcium 8.3 L (8.6-10.4) mg/dl Phosphorus 3.3 (2.5-4.5) mg/dL Magnesium 1.8 (1.6-2.3) mg/dL Total Bilirubin 1.6 H (0.2-1.3) mg/dL AST 58 (17-59) U/L ALT 29 (21-72) U/L Alkaline Phosphatase 169 H (38-126) U/L Total Protein 6.6 (6.3-8.3) g/dL Albumin 3.2 L (3.5-5.0) g/dL Globulin 3.5 (2.2-3.9) gm/dL Albumin/Globulin Ratio 0.9 L (1.0-2.1) Laboratory Results - last 24 hr 03/25/17 03/25/17 06:24 06:28 WBC 25.9 H RBC 3.64 L Hgb 9.0 L Hct 27.4 L MCV 75.3 L MCH 24.8 L MCHC 33.0 RDW 18.7 H Plt Count 389 MPV 8.9 Neut % (Auto) 86.5 H Lymph % (Auto) 5.2 L [place] % (Auto) 5.9 Eos % (Auto) 1.6 Baso % (Auto) 0.8 Neut # 22.4 H Lymph # 1.3 [place] # 1.5 H Eos # 0.4 Baso # 0.2 Neutrophils % (Manual) 75 Band Neutrophils % 13 H* Lymphocytes % (Manual) 5 L Monocytes % (Manual) 7 Platelet Estimate Normal Plt Clumps, EDTA Present Large Platelets Present Polychromasia Slight Hypochromasia (manual) Slight Anisocytosis (manual) Moderate Microcytosis (manual) Slight Target Cells Slight Sodium 136 Potassium 3.5 L Chloride 104 Carbon Dioxide 24 Anion Gap 11 BUN 42 H Creatinine 1.1 Est GFR ( Amer) > 60 Est GFR (Non-Af Amer) > 60 Random Glucose 109 Calcium 8.3 L Phosphorus 3.3 Magnesium 1.8 Total Bilirubin 1.6 H AST 58 ALT 29 Alkaline Phosphatase 169 H Total Protein 6.6 Albumin 3.2 L Globulin 3.5 Albumin/Globulin Ratio 0.9 L Critical Care Progress Note - Nutrition Nutrition: Nutrition Category Date Time Status NPO Diet [DIET] Diets 03/25/17 Breakfast Active Assessment/Plan - Assessment and Plan (Free Text) Assessment: 62M s/p L. Ike for met colon CA Plan: Psych: Depression, psych consult Cards: Tachy controlled with losarten and lopressor Pulm: extubated, tolerating well, no acute issues GI: s/p left ike for met colon CA, Colostomy, MARIBELL drain, wound healing well. One episode of emesis, holding feeds. Renal: no acute issues ID: white count 25.9 with 13 bands, sent for Cdiff. No evidence of abscess on ct scan. continue flagyl, cefepime and vanco PPX: protonix 40 IV QD, heparin Q12 5000 <Mago Mendez - Last Filed: 03/25/17 19:25> CCU Objective - Vital Signs / Intake & Output Vital Signs (Last 4 hours): Vital Signs BP 03/25/17 17:35 141/84 Intake and Output (Last 8hrs): Intake & Output 03/25/17 03/25/17 03/25/17 06:59 14:59 22:59 Intake Total 582 1008 46 Output Total 1010 1020 Balance -428 -12 46 Weight 195 lb 8.8 oz Intake: Intake, IV Amount 232 858 46 Left Antecubital 426 42 right forearm 200 400 upper midabdomen on-Q 32 32 4 pump Oral 350 150 Output: Drainage 60 20 Right Lower Abdomen 60 20 Urine 350 500 Urine, Voided 350 500 Stool 600 500 - Medications Active Medications: Active Medications Generic Name Dose Route Start Last Admin Trade Name Freq PRN Reason Stop Dose Admin Albuterol/Ipratropium 3 ml 03/18/17 14:00 03/25/17 13:32 Duoneb 3 Mg/0.5 Mg (3 Ml) Ud INH 3 ml RQ6 MARC Administration Benzocaine/Menthol 1 michael 03/24/17 07:47 03/24/17 09:18 Cepacol Sore Throat MT 1 michael Q4 PRN Administration Sore Throat Home Med 0 drop 03/15/17 21:15 03/25/17 17:36 Patient's Own Drops OU 1 drop BID MARC Administration Home Med 0 drop 03/15/17 22:00 03/24/17 21:44 Patient's Own Drops OU 1 drop HS MARC Administration Metronidazole 500 mg in 100 mls @ 100 mls/hr 03/15/17 14:00 03/25/17 13:28 Flagyl IVPB 100 mls/hr Q8 MARC Administration BUPIVACAINE 0.125%/0.9% NACL 600 mls @ 4 mls/hr 03/21/17 09:30 03/21/17 12:17 Bupivacaine-Ns 0.125% On-Q Rn Discharge IJ 03/27/17 15:29 4 mls/hr ONCE ONE Administration Cefepime HCl 2 gm in 100 mls @ 100 mls/hr 03/21/17 20:00 03/25/17 12:06 Maxipime Iv 2 Gm Premix IVPB 03/26/17 20:01 100 mls/hr Q8H MARC Administration Vancomycin/Sodium Chloride 1 gm in 200 mls @ 133.333 mls/hr 03/24/17 09:00 09:59 Vancomycin 1 Gm/Ns 200 Ml IVPB 03/29/17 09:01 133.333 mls/hr Q24H MARC Administration Dextrose/Sodium Chloride 1,000 mls @ 42 mls/hr 03/25/17 09:45 03/25/17 09:56 Dextrose 5%/0.9% Ns 1000 Ml IV 42 mls/hr .[id number] MARC Administration Losartan Potassium 25 mg 03/22/17 12:30 03/25/17 09:58 Cozaar PO Not Given DAILY MARC Metoprolol Tartrate 25 mg 03/21/17 10:00 03/25/17 17:35 Lopressor PO 25 mg BID MARC Administration Ondansetron HCl 4 mg 03/15/17 08:52 03/16/17 13:07 Zofran Inj IVP 4 mg Q4H PRN Administration Nausea/Vomiting Pantoprazole Sodium 40 mg 03/17/17 10:00 03/25/17 09:47 Protonix Inj IVP 40 mg DAILY MARC Administration - Patient Studies Lab Studies: Microbiology Studies 03/23/17 09:54 Urine Culture - Final Urine No Growth (<1,000 CFU/ML) Lab Studies 03/25/17 03/25/17 Range/Units 06:28 06:24 WBC 25.9 H (4.8-10.8) K/uL RBC 3.64 L (4.40-5.90) Mil/uL Hgb 9.0 L (12.0-18.0) g/dL Hct 27.4 L (35.0-51.0) % MCV 75.3 L (80.0-94.0) fL MCH 24.8 L (27.0-31.0) pg MCHC 33.0 (33.0-37.0) g/dL RDW 18.7 H (11.5-14.5) % Plt Count 389 (130-400) K/uL MPV 8.9 (7.2-11.7) fL Neut % (Auto) 86.5 H (50.0-75.0) % Lymph % (Auto) 5.2 L (20.0-40.0) % [place] % (Auto) 5.9 (0.0-10.0) % Eos % (Auto) 1.6 (0.0-4.0) % Baso % (Auto) 0.8 (0.0-2.0) % Neut # 22.4 H (1.8-7.0) K/uL Lymph # 1.3 (1.0-4.3) K/uL [place] # 1.5 H (0.0-0.8) K/uL Eos # 0.4 (0.0-0.7) K/uL Baso # 0.2 (0.0-0.2) K/uL Neutrophils % (Manual) 75 (50-75) % Band Neutrophils % 13 H* (0-2) % Lymphocytes % (Manual) 5 L (20-40) % Monocytes % (Manual) 7 (0-10) % Platelet Estimate Normal (NORMAL) Plt Clumps, EDTA Present Large Platelets Present Polychromasia Slight Hypochromasia (manual) Slight Anisocytosis (manual) Moderate Microcytosis (manual) Slight Target Cells Slight Sodium 136 (132-148) mmol/L Potassium 3.5 L (3.6-5.2) mmol/L Chloride 104 (98-107) mmol/L Carbon Dioxide 24 (22-30) mmol/L Anion Gap 11 (10-20) BUN 42 H (9-20) mg/dL Creatinine 1.1 (0.8-1.5) mg/dL Est GFR ( Amer) > 60 Est GFR (Non-Af Amer) > 60 Random Glucose 109 (75-110) mg/dL Calcium 8.3 L (8.6-10.4) mg/dl Phosphorus 3.3 (2.5-4.5) mg/dL Magnesium 1.8 (1.6-2.3) mg/dL Total Bilirubin 1.6 H (0.2-1.3) mg/dL AST 58 (17-59) U/L ALT 29 (21-72) U/L Alkaline Phosphatase 169 H (38-126) U/L Total Protein 6.6 (6.3-8.3) g/dL Albumin 3.2 L (3.5-5.0) g/dL Globulin 3.5 (2.2-3.9) gm/dL Albumin/Globulin Ratio 0.9 L (1.0-2.1) Laboratory Results - last 24 hr 03/25/17 03/25/17 06:24 06:28 WBC 25.9 H RBC 3.64 L Hgb 9.0 L Hct 27.4 L MCV 75.3 L MCH 24.8 L MCHC 33.0 RDW 18.7 H Plt Count 389 MPV 8.9 Neut % (Auto) 86.5 H Lymph % (Auto) 5.2 L [place] % (Auto) 5.9 Eos % (Auto) 1.6 Baso % (Auto) 0.8 Neut # 22.4 H Lymph # 1.3 [place] # 1.5 H Eos # 0.4 Baso # 0.2 Neutrophils % (Manual) 75 Band Neutrophils % 13 H* Lymphocytes % (Manual) 5 L Monocytes % (Manual) 7 Platelet Estimate Normal Plt Clumps, EDTA Present Large Platelets Present Polychromasia Slight Hypochromasia (manual) Slight Anisocytosis (manual) Moderate Microcytosis (manual) Slight Target Cells Slight Sodium 136 Potassium 3.5 L Chloride 104 Carbon Dioxide 24 Anion Gap 11 BUN 42 H Creatinine 1.1 Est GFR ( Amer) > 60 Est GFR (Non-Af Amer) > 60 Random Glucose 109 Calcium 8.3 L Phosphorus 3.3 Magnesium 1.8 Total Bilirubin 1.6 H AST 58 ALT 29 Alkaline Phosphatase 169 H Total Protein 6.6 Albumin 3.2 L Globulin 3.5 Albumin/Globulin Ratio 0.9 L Critical Care Progress Note - Nutrition Nutrition: Nutrition Category Date Time Status NPO Diet [DIET] Diets 03/25/17 Breakfast Active Assessment/Plan - Assessment and Plan (Free Text) Plan: Patinet did not tolerate oral feed. (+)nausea/vomitting -NPO, IVF -stomach distended -leukocytosis persists -continue abx -patient refused placement of ng tube -risks, benefits and alternatives explained - Date & Time Date: 03/25/17 Time: 13:00
--- NOTE | 2017-03-25 14:46 | VASCLAB ---
PROCEDURE: Lower Extremity Venous Duplex Exam. HISTORY: lower ext swelling PRIORS: None. TECHNIQUE: Bilateral common femoral, femoral, popliteal and posterior tibial, peroneal and great saphenous veins were evaluated. Flow was assessed with color Doppler, compressibility, assessment of phasic flow and augmentation response. Report prepared by Jono Zepeda, CHRISTINE, RVT FINDINGS: RIGHT: 1. Common Femoral Vein: 1.1. Compressibility - Fully compressible: Thrombus - None : Flow - Phasic: Augmentation -Normal: Reflux - None. 2. Femoral Vein: 2.1. Compressibility - Fully compressible: Thrombus - None : Flow - Phasic: Augmentation -Normal: Reflux - None. 3. Popliteal Vein: 3.1. Compressibility - Fully compressible: Thrombus - None : Flow - Phasic: Augmentation -Normal: Reflux - None. 4. Posterior Tibial Vein: 4.1. Compressibility - Fully compressible: Thrombus - None: Flow - Phasic: Augmentation -Normal: Reflux - None. 5. Peroneal Vein: 5.1. Compressibility - Fully compressible: Thrombus - None: Flow - Phasic: Augmentation -Normal: Reflux - None. 6. Great Saphenous Vein: 6.1. Compressibility - Fully compressible: Thrombus - None: Flow - Phasic: Augmentation - Normal: Reflux - None. LEFT: 1. Common Femoral Vein: 1.1. Compressibility - Fully compressible: Thrombus - None: Flow - Phasic: Augmentation -Normal: Reflux - None. 2. Femoral Vein: 2.1. Compressibility - Fully compressible: Thrombus - None: Flow - Phasic: Augmentation -Normal: Reflux - None. 3. Popliteal Vein: 3.1. Compressibility - Fully compressible: Thrombus - None : Flow - Phasic: Augmentation -Normal: Reflux - None. 4. Posterior Tibial Vein: 4.1. Compressibility - Fully compressible: Thrombus - None: Flow - Phasic: Augmentation -Normal: Reflux - None. 5. Peroneal Vein: 5.1. Compressibility - Fully compressible: Thrombus - None: Flow - Phasic: Augmentation -Normal: Reflux - None. 6. Great Saphenous Vein: 6.1. Compressibility - Fully compressible: Thrombus - None: Flow - Phasic: Augmentation - Normal: Reflux - None. OTHER FINDINGS: Right: None significant. Left: None significant. IMPRESSION: Right: No evidence of deep or superficial vein thrombosis of the right lower extremity. Normal valve function noted of the right side. Left: No evidence of deep or superficial vein thrombosis of the left lower extremity. Normal valve function noted of the left side.
--- NOTE | 2017-03-25 17:16 | CP.PCM.PN ---
<Michael Granda - Last Filed: 03/25/17 17:59> Subjective - Date & Time of Evaluation Date of Evaluation: 03/25/17 Time of Evaluation: 07:30 - Subjective Subjective: General Surgery Note for Dr. Steinberg Patient seen and examined at bedside. No acute event overnight. Patient is extubated. Ngt tube removed today. Patient producing copious amounts of stool from colostomy. Patient started on ice chips and sips. Patient complaining of nausea. Objective - Vital Signs/Intake and Output Vital Signs (last 24 hours): Temp Pulse Resp BP Pulse Ox 97.4 F L 92 H 29 H 127/75 98 03/25/17 12:00 03/25/17 13:02 03/25/17 13:02 03/25/17 13:02 03/25/17 13:00 Intake and Output: 03/25/17 03/25/17 06:59 18:59 Intake Total 998 1054 Output Total 1160 1020 Balance -162 34 - Medications Medications: Current Medications Albuterol/Ipratropium (Duoneb 3 Mg/0.5 Mg (3 Ml) Ud) 3 ml INH RQ6 [facility] Last Admin: 03/25/17 13:32 Dose: 3 ml Benzocaine/Menthol (Cepacol Sore Throat) 1 michael MT Q4 PRN PRN Reason: Sore Throat Last Admin: 03/24/17 09:18 Dose: 1 michael Home Med (Patient's Own Drops) 0 drop OU BID [facility] Last Admin: 03/25/17 09:50 Dose: 1 drop Home Med (Patient's Own Drops) 0 drop OU HS [facility] Last Admin: 03/24/17 21:44 Dose: 1 drop Metronidazole (Flagyl) 500 mg in 100 mls @ 100 mls/hr IVPB Q8 MARC Last Admin: 03/25/17 13:28 Dose: 100 mls/hr BUPIVACAINE 0.125%/0.9% NACL (Bupivacaine-Ns 0.125% On-Q [employer]phalt [employer]er) 600 mls @ 4 mls/ hr IJ ONCE ONE Stop: 03/27/17 15:29 Last Admin: 03/21/17 12:17 Dose: 4 mls/hr Cefepime HCl (Maxipime Iv 2 Gm Premix) 2 gm in 100 mls @ 100 mls/hr IVPB Q8H [facility] Stop: 03/26/17 20:01 Last Admin: 03/25/17 12:06 Dose: 100 mls/hr Vancomycin/Sodium Chloride (Vancomycin 1 Gm/Ns 200 Ml) 1 gm in 200 mls @ 133.333 mls/hr IVPB Q24H [facility] Stop: 03/29/17 09:01 Last Admin: 03/25/17 09:59 Dose: 133.333 mls/hr Dextrose/Sodium Chloride (Dextrose 5%/0.9% Ns 1000 Ml) 1,000 mls @ 42 mls/hr IV .[id number] [facility] Last Admin: 03/25/17 09:56 Dose: 42 mls/hr Losartan Potassium (Cozaar) 25 mg PO DAILY [facility] Last Admin: 03/25/17 09:58 Dose: Not Given Metoprolol Tartrate (Lopressor) 25 mg PO BID [facility] Last Admin: 03/25/17 09:58 Dose: Not Given Ondansetron HCl (Zofran Inj) 4 mg IVP Q4H PRN PRN Reason: Nausea/Vomiting Last Admin: 03/16/17 13:07 Dose: 4 mg Pantoprazole Sodium (Protonix Inj) 40 mg IVP DAILY [facility] Last Admin: 03/25/17 09:47 Dose: 40 mg - Labs Labs: 03/25/17 06:28 03/25/17 06:24 PT 19.4 SECONDS (9.7-12.2) H D 03/17/17 20:14 INR 1.7 D 03/17/17 20:14 APTT 35 SECONDS (21-34) H D 03/17/17 20:14 - Constitutional Appears: No Acute Distress - Head Exam Head Exam: ATRAUMATIC, NORMOCEPHALIC - Eye Exam Eye Exam: Normal appearance - ENT Exam ENT Exam: Mucous Membranes Dry - Respiratory Exam Respiratory Exam: NORMAL BREATHING PATTERN - Cardiovascular Exam Cardiovascular Exam: REGULAR RHYTHM - GI/Abdominal Exam GI & Abdominal Exam: Distended, Soft, Tenderness, Normal Bowel Sounds Additional comments: colostomy pink and patent producing stool - Neurological Exam Neurological Exam: Alert, Awake, Oriented x3 - Psychiatric Exam Psychiatric exam: Normal Affect, Normal Mood - Skin Skin Exam: Dry, Intact, Normal Color, Warm Assessment and Plan - Assessment and Plan (Free Text) Plan: 62M with stage IV colon cancer s/p colectomy and colostomy for obstructing mass POD#8 Sip/Chips, will ADAT IV antibiotics IV fluids Analgesics/Anti-emetics PRN Management as per ICU D/W Dr. Maryan Granda PGY1 <Trace Steinberg B - Last Filed: 03/26/17 15:19> Objective - Vital Signs/Intake and Output Vital Signs (last 24 hours): Temp Pulse Resp BP Pulse Ox 97.6 F 88 29 H 143/87 98 03/26/17 04:00 03/26/17 07:02 03/26/17 07:02 03/26/17 10:40 03/26/17 07:00 Intake and Output: 03/26/17 03/26/17 06:59 18:59 Intake Total 1386 104 Output Total 1370 Balance 16 104 - Medications Medications: Current Medications Albuterol/Ipratropium (Duoneb 3 Mg/0.5 Mg (3 Ml) Ud) 3 ml INH RQ6 [facility] Last Admin: 03/26/17 14:36 Dose: 3 ml Benzocaine/Menthol (Cepacol Sore Throat) 1 michael MT Q4 PRN PRN Reason: Sore Throat Last Admin: 03/24/17 09:18 Dose: 1 michael Home Med (Patient's Own Drops) 0 drop OU BID MARC Last Admin: 03/26/17 10:40 Dose: 1 drop Home Med (Patient's Own Drops) 0 drop OU HS [facility] Last Admin: 03/26/17 00:24 Dose: 1 drop Metronidazole (Flagyl) 500 mg in 100 mls @ 100 mls/hr IVPB Q8 [facility] Last Admin: 03/26/17 06:05 Dose: 100 mls/hr BUPIVACAINE 0.125%/0.9% NACL (Bupivacaine-Ns 0.125% On-Q 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) 600 mls @ 4 mls/ hr IJ ONCE ONE Stop: 03/27/17 15:29 Last Admin: 03/21/17 12:17 Dose: 4 mls/hr Cefepime HCl (Maxipime Iv 2 Gm Premix) 2 gm in 100 mls @ 100 mls/hr IVPB Q8H [facility] Stop: 03/26/17 20:01 Last Admin: 03/26/17 03:24 Dose: 100 mls/hr Vancomycin/Sodium Chloride (Vancomycin 1 Gm/Ns 200 Ml) 1 gm in 200 mls @ 133.333 mls/hr IVPB Q24H [facility] Stop: 03/29/17 09:01 Last Admin: 03/26/17 10:39 Dose: 133.333 mls/hr Dextrose/Sodium Chloride (Dextrose 5%/0.9% Ns 1000 Ml) 1,000 mls @ 42 mls/hr IV .[id number] [facility] Last Admin: 03/26/17 10:39 Dose: 42 mls/hr Losartan Potassium (Cozaar) 25 mg PO DAILY [facility] Last Admin: 03/26/17 10:40 Dose: 25 mg Metoprolol Tartrate (Lopressor) 25 mg PO BID [facility] Last Admin: 03/26/17 10:40 Dose: 25 mg Ondansetron HCl (Zofran Inj) 4 mg IVP Q4H PRN PRN Reason: Nausea/Vomiting Last Admin: 03/16/17 13:07 Dose: 4 mg Pantoprazole Sodium (Protonix Inj) 40 mg IVP DAILY [facility] Last Admin: 03/26/17 10:40 Dose: 40 mg - Labs Labs: 03/26/17 06:11 03/26/17 06:11 PT 19.4 SECONDS (9.7-12.2) H D 03/17/17 20:14 INR 1.7 D 03/17/17 20:14 APTT 35 SECONDS (21-34) H D 03/17/17 20:14 Attending/Attestation - Attestation I have personally seen and examined this patient.: Yes I have fully participated in the care of the patient.: Yes I have reviewed all pertinent clinical information, including history, physical exam and plan: Yes Notes (Text): Pt was seen and examined at bedside Agree with above note and assessment Pt is tolerating diet, has vomiting today morning Clear liquid only Change antibiotics CT scan of A/P reviewed, No collection Cw IV antibiotics Plan d.w pt and ICU attending.
[2017-03-26] MEDS: metroNIDAZOLE IV 500 mg/100 ml 500 MG/100 ML BAG IVPB SCH ×3 (00:23→13:53)
[2017-03-26] MEDS: TRAVATAN OU SCH (00:24)
--- NOTE | 2017-03-26 01:04 | CP.PCM.PN ---
Subjective - Date & Time of Evaluation Date of Evaluation: 03/26/17 Time of Evaluation: 01:01 - Subjective Subjective: General Surgery: Dr Steinberg Pt S&E in ICU. Pt is awake and resting in bed. Pt reports he has had difficulty sleeping due to nightmares and noise/lights within the ICU. Has a lot of anxiety. Denies any pain at the moment, OnQ removed yesterday. Having a lot of output out of ostomy. Denies N/V, F/C, SOB or chest pain. Pt has been OOB to chair. Objective - Vital Signs/Intake and Output Vital Signs (last 24 hours): Temp Pulse Resp BP Pulse Ox 97.8 F 88 25 H 136/85 97 03/25/17 23:59 03/26/17 00:02 03/26/17 00:02 03/26/17 00:02 03/26/17 00:02 Intake and Output: 03/25/17 03/26/17 18:59 06:59 Intake Total 1238 450 Output Total 1520 220 Balance -282 230 - Medications Medications: Current Medications Albuterol/Ipratropium (Duoneb 3 Mg/0.5 Mg (3 Ml) Ud) 3 ml INH RQ6 [facility] Last Admin: 03/25/17 19:52 Dose: 3 ml Benzocaine/Menthol (Cepacol Sore Throat) 1 michael MT Q4 PRN PRN Reason: Sore Throat Last Admin: 03/24/17 09:18 Dose: 1 michael Home Med (Patient's Own Drops) 0 drop OU BID [facility] Last Admin: 03/25/17 17:36 Dose: 1 drop Home Med (Patient's Own Drops) 0 drop OU HS [facility] Last Admin: 03/26/17 00:24 Dose: 1 drop Metronidazole (Flagyl) 500 mg in 100 mls @ 100 mls/hr IVPB Q8 [facility] Last Admin: 03/26/17 00:23 Dose: 100 mls/hr BUPIVACAINE 0.125%/0.9% NACL (Bupivacaine-Ns 0.125% On-Q Mortar Carrier) 600 mls @ 4 mls/ hr IJ ONCE ONE Stop: 03/27/17 15:29 Last Admin: 03/21/17 12:17 Dose: 4 mls/hr Cefepime HCl (Maxipime Iv 2 Gm Premix) 2 gm in 100 mls @ 100 mls/hr IVPB Q8H [facility] Stop: 03/26/17 20:01 Last Admin: 03/25/17 20:23 Dose: 100 mls/hr Vancomycin/Sodium Chloride (Vancomycin 1 Gm/Ns 200 Ml) 1 gm in 200 mls @ 133.333 mls/hr IVPB Q24H [facility] Stop: 03/29/17 09:01 Last Admin: 03/25/17 09:59 Dose: 133.333 mls/hr Dextrose/Sodium Chloride (Dextrose 5%/0.9% Ns 1000 Ml) 1,000 mls @ 42 mls/hr IV .[id number] [facility] Last Admin: 03/25/17 09:56 Dose: 42 mls/hr Losartan Potassium (Cozaar) 25 mg PO DAILY [facility] Last Admin: 03/25/17 09:58 Dose: Not Given Metoprolol Tartrate (Lopressor) 25 mg PO BID [facility] Last Admin: 03/25/17 17:35 Dose: 25 mg Ondansetron HCl (Zofran Inj) 4 mg IVP Q4H PRN PRN Reason: Nausea/Vomiting Last Admin: 03/16/17 13:07 Dose: 4 mg Pantoprazole Sodium (Protonix Inj) 40 mg IVP DAILY [facility] Last Admin: 03/25/17 09:47 Dose: 40 mg - Labs Labs: 03/25/17 06:28 03/25/17 06:24 PT 19.4 SECONDS (9.7-12.2) H D 03/17/17 20:14 INR 1.7 D 03/17/17 20:14 APTT 35 SECONDS (21-34) H D 03/17/17 20:14 - Constitutional Appears: Non-toxic, No Acute Distress - ENT Exam ENT Exam: Mucous Membranes Dry - Respiratory Exam Respiratory Exam: absent: Accessory Muscle Use, Respiratory Distress - Cardiovascular Exam Cardiovascular Exam: REGULAR RHYTHM. absent: Tachycardia - GI/Abdominal Exam GI & Abdominal Exam: Soft, Tenderness (vandana-incisional). absent: Distended ( distension improved), Firm, Guarding, Rigid Additional comments: midline c/d/i, dressing being changed by nursing - Neurological Exam Neurological Exam: Alert, Awake, Oriented x3 - Psychiatric Exam Psychiatric exam: Depressed - Skin Skin Exam: Normal Color, Warm Assessment and Plan - Assessment and Plan (Free Text) Assessment: 62M with stage IV colon cancer s/p colectomy and colostomy for obstructing mass POD#9 Sip/Chips, can consider trial of CLD again later today IV antibiotics as per ID IV fluids Analgesics/Anti-emetics PRN Management as per ICU will D/W Dr. Maryan Richards, PGY3
[2017-03-26] MEDS: Albuterol-Ipratrop 3 mg / 0.5 (3 ml) UD INH SCH ×4 (01:43→20:10)
[2017-03-26] MEDS: Cefepime IV 2 gm in Dextrose 2 GM/100 ML BAG IVPB SCH ×3 (03:24→20:15)
[2017-03-26 06:19] LABS: BASO # 0.1 K/uL (0.0-0.2); BASO % 0.3 % (0.0-2.0); EOS # 0.3 K/uL (0.0-0.7); EOS % 1.3 % (0.0-4.0); HEMOGLOBIN 8.5 g/dL (12.0-18.0); LYMPH # 1.6 K/uL (1.0-4.3); MEAN CELL VOLUME 75.8 fL (80.0-94.0); MEAN CORPUSCULAR HEMOGLOBIN 24.4 pg (27.0-31.0); MEAN CORPUSCULAR HGB CONC 32.2 g/dL (33.0-37.0); MEAN PLATELET VOLUME 9.3 fL (7.2-11.7); MONO # 1.6 K/uL (0.0-0.8); MONO % 6.9 % (0.0-10.0); NEUT # 19.1 K/uL (1.8-7.0); NEUT % 84.5 % (50.0-75.0); NRBC % 0.1 % (0.0-2.0); PLATELET COUNT 387 K/uL (130-400); RBC 3.51 Mil/uL (4.40-5.90); WHITE BLOOD COUNT 22.7 K/uL (4.8-10.8)
[2017-03-26 06:29] LABS: ALB/GLOB RATIO 0.8 (1.0-2.1); ALT/SGPT 34 U/L (21-72); AST/SGOT 53 U/L (17-59); BLOOD UREA NITROGEN 34 mg/dL (9-20); CALCIUM 7.8 mg/dl (8.6-10.4); GFR AFRICAN-AMERICAN > 60; GFR NON-AFRICAN AMERICAN > 60; MAGNESIUM 1.8 mg/dL (1.6-2.3)
--- NOTE | 2017-03-26 08:33 | CP.PCM.PN ---
Subjective - Date & Time of Evaluation Date of Evaluation: 03/26/17 Time of Evaluation: 08:31 - Subjective Subjective: Notes reviewed Comfortable in bed Reports feeling sad over recent events No pain currently No sob or cough +fatigue ROS: negative other than reported above Objective - Vital Signs/Intake and Output Vital Signs (last 24 hours): Temp Pulse Resp BP Pulse Ox 97.6 F 88 29 H 122/80 98 03/26/17 04:00 03/26/17 07:02 03/26/17 07:02 03/26/17 07:02 03/26/17 07:00 Intake and Output: 03/26/17 03/26/17 06:59 18:59 Intake Total 1386 104 Output Total 1370 Balance 16 104 - Medications Medications: Current Medications Albuterol/Ipratropium (Duoneb 3 Mg/0.5 Mg (3 Ml) Ud) 3 ml INH RQ6 [facility] Last Admin: 03/26/17 01:43 Dose: 3 ml Benzocaine/Menthol (Cepacol Sore Throat) 1 michael MT Q4 PRN PRN Reason: Sore Throat Last Admin: 03/24/17 09:18 Dose: 1 michael Home Med (Patient's Own Drops) 0 drop OU BID [facility] Last Admin: 03/25/17 17:36 Dose: 1 drop Home Med (Patient's Own Drops) 0 drop OU HS [facility] Last Admin: 03/26/17 00:24 Dose: 1 drop Metronidazole (Flagyl) 500 mg in 100 mls @ 100 mls/hr IVPB Q8 [facility] Last Admin: 03/26/17 06:05 Dose: 100 mls/hr BUPIVACAINE 0.125%/0.9% NACL (Bupivacaine-Ns 0.125% On-Q Wildlife Policy Professional) 600 mls @ 4 mls/ hr IJ ONCE ONE Stop: 03/27/17 15:29 Last Admin: 03/21/17 12:17 Dose: 4 mls/hr Cefepime HCl (Maxipime Iv 2 Gm Premix) 2 gm in 100 mls @ 100 mls/hr IVPB Q8H [facility] Stop: 03/26/17 20:01 Last Admin: 03/26/17 03:24 Dose: 100 mls/hr Vancomycin/Sodium Chloride (Vancomycin 1 Gm/Ns 200 Ml) 1 gm in 200 mls @ 133.333 mls/hr IVPB Q24H [facility] Stop: 03/29/17 09:01 Last Admin: 03/25/17 09:59 Dose: 133.333 mls/hr Dextrose/Sodium Chloride (Dextrose 5%/0.9% Ns 1000 Ml) 1,000 mls @ 42 mls/hr IV .[id number] [facility] Last Admin: 03/25/17 09:56 Dose: 42 mls/hr Losartan Potassium (Cozaar) 25 mg PO DAILY [facility] Last Admin: 03/25/17 09:58 Dose: Not Given Metoprolol Tartrate (Lopressor) 25 mg PO BID [facility] Last Admin: 03/25/17 17:35 Dose: 25 mg Ondansetron HCl (Zofran Inj) 4 mg IVP Q4H PRN PRN Reason: Nausea/Vomiting Last Admin: 03/16/17 13:07 Dose: 4 mg Pantoprazole Sodium (Protonix Inj) 40 mg IVP DAILY [facility] Last Admin: 03/25/17 09:47 Dose: 40 mg - Labs Labs: 03/26/17 06:11 03/26/17 06:11 PT 19.4 SECONDS (9.7-12.2) H D 03/17/17 20:14 INR 1.7 D 03/17/17 20:14 APTT 35 SECONDS (21-34) H D 03/17/17 20:14 - Constitutional Appears: Non-toxic, No Acute Distress - Head Exam Head Exam: ATRAUMATIC, NORMAL INSPECTION - Eye Exam Eye Exam: EOMI, Normal appearance - ENT Exam ENT Exam: Mucous Membranes Moist, Normal Oropharynx - Neck Exam Neck Exam: absent: Lymphadenopathy, Thyromegaly - Respiratory Exam Respiratory Exam: Clear to Ausculation Bilateral, NORMAL BREATHING PATTERN - Cardiovascular Exam Cardiovascular Exam: REGULAR RHYTHM, +S1, +S2 - GI/Abdominal Exam GI & Abdominal Exam: Distended, Normal Bowel Sounds - Extremities Exam Extremities Exam: absent: Pedal Edema, Tenderness - Neurological Exam Neurological Exam: Alert, Awake - Skin Skin Exam: Dry, Intact Assessment and Plan (1) JENNY (acute kidney injury) Status: Acute (2) Colon cancer Status: Acute (3) SBO (small bowel obstruction) Status: Acute - Assessment and Plan (Free Text) Assessment: Renal function stable Bp controlled Replete k today Continue supportive care
[2017-03-26 08:50] LABS: BANDS 7 % (0-2); LYMPHOCYTE 7 % (20-40); MONOCYTE 5 % (0-10); NEUTROPHIL 81 % (50-75); PLATELET ESTIMATE NORMAL (NORMAL); TOTAL CELLS COUNTED 100
[2017-03-26 08:51] LABS: ANISOCYTOSIS MODERATE; HYPOCHROMIC SLIGHT; TOXIC GRANULATION PRESENT
[2017-03-26 09:15] LABS: LARGE PLATELETS PRESENT; POLYCHROMIC SLIGHT; TARGET CELLS SLIGHT
[2017-03-26] MEDS: Vancomycin 1 gm/NS 200 ml 1 GM/200 ML BAG IVPB SCH (10:39)
[2017-03-26] MEDS: COMBIGAN OU SCH ×2 (10:40→17:54)
--- NOTE | 2017-03-26 12:38 | CP.PCM.PN ---
Subjective - Date & Time of Evaluation Date of Evaluation: 03/26/17 Time of Evaluation: 12:20 - Subjective Subjective: Patient was seen and examined by me For the recorded, I was notified that I was making the patient and family member excessively depressed about the overall situation (even though the patient and family ASKED ME repeatedly to updated about them about cancer and infection) So today I did not discuss anything specific to them. The WBC is 22, there is 7 bands, the most recent procalictonin level was elevated. No fevers. Repeat blood cultures are negative, will check again. He remains on IV abx. He is POD 9 His abdomen is very distended this morning. He is currently NPO, he did not want an NGT he said. He says he will try to walk with PT to see if it will help Objective - Vital Signs/Intake and Output Vital Signs (last 24 hours): Temp Pulse Resp BP Pulse Ox 97.6 F 88 29 H 143/87 98 03/26/17 04:00 03/26/17 07:02 03/26/17 07:02 03/26/17 10:40 03/26/17 07:00 Intake and Output: 03/26/17 03/26/17 06:59 18:59 Intake Total 1386 104 Output Total 1370 Balance 16 104 - Medications Medications: Current Medications Albuterol/Ipratropium (Duoneb 3 Mg/0.5 Mg (3 Ml) Ud) 3 ml INH RQ6 [facility] Last Admin: 03/26/17 07:50 Dose: 3 ml Benzocaine/Menthol (Cepacol Sore Throat) 1 michael MT Q4 PRN PRN Reason: Sore Throat Last Admin: 03/24/17 09:18 Dose: 1 michael Home Med (Patient's Own Drops) 0 drop OU BID [facility] Last Admin: 03/26/17 10:40 Dose: 1 drop Home Med (Patient's Own Drops) 0 drop OU HS [facility] Last Admin: 03/26/17 00:24 Dose: 1 drop Metronidazole (Flagyl) 500 mg in 100 mls @ 100 mls/hr IVPB Q8 [facility] Last Admin: 03/26/17 06:05 Dose: 100 mls/hr BUPIVACAINE 0.125%/0.9% NACL (Bupivacaine-Ns 0.125% On-Q Honeycomb Decapper) 600 mls @ 4 mls/ hr IJ ONCE ONE Stop: 03/27/17 15:29 Last Admin: 03/21/17 12:17 Dose: 4 mls/hr Cefepime HCl (Maxipime Iv 2 Gm Premix) 2 gm in 100 mls @ 100 mls/hr IVPB Q8H [facility] Stop: 03/26/17 20:01 Last Admin: 03/26/17 03:24 Dose: 100 mls/hr Vancomycin/Sodium Chloride (Vancomycin 1 Gm/Ns 200 Ml) 1 gm in 200 mls @ 133.333 mls/hr IVPB Q24H [facility] Stop: 03/29/17 09:01 Last Admin: 03/26/17 10:39 Dose: 133.333 mls/hr Dextrose/Sodium Chloride (Dextrose 5%/0.9% Ns 1000 Ml) 1,000 mls @ 42 mls/hr IV .[id number] [facility] Last Admin: 03/26/17 10:39 Dose: 42 mls/hr Losartan Potassium (Cozaar) 25 mg PO DAILY [facility] Last Admin: 03/26/17 10:40 Dose: 25 mg Metoprolol Tartrate (Lopressor) 25 mg PO BID [facility] Last Admin: 03/26/17 10:40 Dose: 25 mg Ondansetron HCl (Zofran Inj) 4 mg IVP Q4H PRN PRN Reason: Nausea/Vomiting Last Admin: 03/16/17 13:07 Dose: 4 mg Pantoprazole Sodium (Protonix Inj) 40 mg IVP DAILY [facility] Last Admin: 03/26/17 10:40 Dose: 40 mg - Labs Labs: 03/26/17 06:11 03/26/17 06:11 PT 19.4 SECONDS (9.7-12.2) H D 03/17/17 20:14 INR 1.7 D 03/17/17 20:14 APTT 35 SECONDS (21-34) H D 03/17/17 20:14 - Constitutional Appears: Chronically Ill - Head Exam Head Exam: NORMAL INSPECTION, NORMOCEPHALIC - Eye Exam Eye Exam: EOMI - ENT Exam ENT Exam: Mucous Membranes Moist - Cardiovascular Exam Cardiovascular Exam: REGULAR RHYTHM - GI/Abdominal Exam GI & Abdominal Exam: Distended, Firm, Soft, Normal Bowel Sounds. absent: Guarding, Rigid, Tenderness Additional comments: Currently very minimal brown output in the colostomy Minimal light pink serrosangenous fluid in MARIBELL drain Abdomen is distended it seems. More so then yesterday - Neurological Exam Neurological Exam: Alert, Awake, Oriented x3 Neuro motor strength exam: Left Upper Extremity: 5, Right Upper Extremity: 5 - Skin Skin Exam: Normal Color, Warm Assessment and Plan - Assessment and Plan (Free Text) Assessment: This is a 62 year old male who came to the hospital on 03/15 with abdominal pain , weight loss, no BMs, and also dark emesis. He was determined to have a a 4.6 x 5 x 7 cm mass that was causing obstruction. This same imaging also suggested a metastatic spread of a cancer to lungs and liver as well. He then underwent a flexible sigmoidscopy on 03/16 and the biopsy showed adenocarcinoma. He underwent an exploratory laparotomy and left hemicolectomy and creation of a colostomy. Patient and family are aware of the adenocarcinoma. 1. 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 03/26: Now POD 9, abdomen is distended. He does not want an NGT for potential suctioning. Continue to monitor 03/25: Patient is now very awake and alert. 03/24: Now POD 6, the tissue from 03/17 has returned showing adenocarcinoma 03/21: Now with colostomy. He is S/P POD 3 of exploratory laparotmy with left hemicolectomy and colostomy. He had takedown of splenic flexure, lysis of adhesions, omentectomy. biopsy. GI consult DR Esparza s/p sigmoidoscopy and biopsy follow biopsy report Patient remains Intubated,todays chext x ray with RLL infiltrate follow up bowling or skating front desk clerk recommendation 2. Ventilator dependent respiratory failure 03/26: He is currently on nasal cannula doing ok. Continue follow CXRAY 03/24: Now extubated, did ok overnight the tube feeds had to be held temporarily and now is restarted 03/23: Remains on CPAPA/PS settings, still has elevated WBC. is aware of poor prognosis 03/22: He tolerated being on CPAP/pressure support settings without incidence overnight hopefully at some point to be extubated 03/21: At this moment is on CPAP/PS settings He has been on IV cefepime, IV tigecyclin, as well as IV flagly The XRAY from today continuing to show infiltrates sedated on MV,urine out is improving 3. Bilateral lobe pneumonia 03/26: Ordered additional blood cultures. Also procalcitonin. 03/24: Now extubated, remains on IV abx. WBC is 26, high procalcitonin. The blood pressures are stable for now. 03/23: Again high WBC, on Azithromycin, Cefepime, Flagyl. Blood and trach cultures negative 03/22: WBC count remains elevated with bandemia. Continue with IV abx. 03/21: As mentioned above, continue with ventilation, follow CXRAYs, IV abx The cultures remain negative at this moment 4. Acute Kidney Injury 03/25: 03/22: Creatine decreased to 1.2, urine out put 3,500 03/21: Creatine 1.5 today, urine out put was 5,900 over 24hrs 5. Anemia monitor hemoglobin type and screen and follow hemoglobin 6. DVT prophylaxis-SCDs GI prophylaxis-Protonix
[2017-03-27] MEDS: metroNIDAZOLE IV 500 mg/100 ml 500 MG/100 ML BAG IVPB SCH ×4 (00:09→21:33)
[2017-03-27] MEDS: TRAVATAN OU SCH ×2 (00:10→21:18)
[2017-03-27] MEDS: Dextrose 5%/0.9% NS 1,000 ML IV SCH ×2 (00:46→10:34)
[2017-03-27] MEDS: Cefepime IV 2 gm in Dextrose 2 GM/100 ML BAG IVPB SCH ×3 (03:33→19:57)
[2017-03-27] MEDS: Albuterol-Ipratrop 3 mg / 0.5 (3 ml) UD INH SCH ×5 (06:13→20:06)
[2017-03-27 06:34] LABS: HEMOGLOBIN 8.3 g/dL (12.0-18.0); MEAN CELL VOLUME 77.1 fL (80.0-94.0); MEAN CORPUSCULAR HEMOGLOBIN 24.4 pg (27.0-31.0); MEAN CORPUSCULAR HGB CONC 31.7 g/dL (33.0-37.0); MEAN PLATELET VOLUME 9.2 fL (7.2-11.7); RBC 3.42 Mil/uL (4.40-5.90); RED CELL DISTRIBUTION WIDTH 18.7 % (11.5-14.5); WHITE BLOOD COUNT 24.1 K/uL (4.8-10.8)
[2017-03-27 06:45] LABS: ALB/GLOB RATIO 0.8 (1.0-2.1); ALBUMIN 3.2 g/dL (3.5-5.0); ALT/SGPT 33 U/L (21-72); AST/SGOT 58 U/L (17-59); BLOOD UREA NITROGEN 28 mg/dL (9-20); GFR AFRICAN-AMERICAN > 60; GFR NON-AFRICAN AMERICAN > 60
--- NOTE | 2017-03-27 08:06 | CP.PCM.PN ---
Subjective - Date & Time of Evaluation Date of Evaluation: 03/27/17 Time of Evaluation: 08:00 - Subjective Subjective: PGY-[address] Coronel's service: Patient seen and examined at bedside. No acute event overnight. Objective - Vital Signs/Intake and Output Vital Signs (last 24 hours): Temp Pulse Resp BP Pulse Ox 98.4 F 96 H 30 H 121/72 93 L 03/27/17 04:00 03/27/17 04:02 03/27/17 04:02 03/27/17 04:02 03/27/17 04:00 Intake and Output: 03/27/17 03/27/17 06:59 18:59 Intake Total 20 Output Total 700 Balance -680 - Medications Medications: Current Medications Albuterol/Ipratropium (Duoneb 3 Mg/0.5 Mg (3 Ml) Ud) 3 ml INH RQ6 [facility] Last Admin: 03/27/17 07:41 Dose: 3 ml Benzocaine/Menthol (Cepacol Sore Throat) 1 michael MT Q4 PRN PRN Reason: Sore Throat Last Admin: 03/24/17 09:18 Dose: 1 michael Home Med (Patient's Own Drops) 0 drop OU BID [facility] Last Admin: 03/26/17 17:54 Dose: 1 drop Home Med (Patient's Own Drops) 0 drop OU HS [facility] Last Admin: 03/27/17 00:10 Dose: 1 drop Metronidazole (Flagyl) 500 mg in 100 mls @ 100 mls/hr IVPB Q8 [facility] Last Admin: 03/27/17 06:39 Dose: 100 mls/hr BUPIVACAINE 0.125%/0.9% NACL (Bupivacaine-Ns 0.125% On-Q Footwear Factory Worker) 600 mls @ 4 mls/ hr IJ ONCE ONE Stop: 03/27/17 15:29 Last Admin: 03/21/17 12:17 Dose: 4 mls/hr Vancomycin/Sodium Chloride (Vancomycin 1 Gm/Ns 200 Ml) 1 gm in 200 mls @ 133.333 mls/hr IVPB Q24H [facility] Stop: 03/29/17 09:01 Last Admin: 03/26/17 10:39 Dose: 133.333 mls/hr Dextrose/Sodium Chloride (Dextrose 5%/0.9% Ns 1000 Ml) 1,000 mls @ 42 mls/hr IV .[id number] [facility] Last Admin: 03/27/17 00:46 Dose: 42 mls/hr Cefepime HCl (Maxipime Iv 2 Gm Premix) 2 gm in 100 mls @ 200 mls/hr IVPB Q8H [facility] Stop: 04/01/17 04:01 Last Admin: 03/27/17 03:33 Dose: 200 mls/hr Losartan Potassium (Cozaar) 25 mg PO DAILY [facility] Last Admin: 03/26/17 10:40 Dose: 25 mg Metoprolol Tartrate (Lopressor) 25 mg PO BID [facility] Last Admin: 03/26/17 17:54 Dose: 25 mg Ondansetron HCl (Zofran Inj) 4 mg IVP Q4H PRN PRN Reason: Nausea/Vomiting Last Admin: 03/16/17 13:07 Dose: 4 mg Pantoprazole Sodium (Protonix Inj) 40 mg IVP DAILY [facility] Last Admin: 03/26/17 10:40 Dose: 40 mg - Labs Labs: 03/27/17 06:23 03/27/17 06:24 PT 19.4 SECONDS (9.7-12.2) H D 03/17/17 20:14 INR 1.7 D 03/17/17 20:14 APTT 35 SECONDS (21-34) H D 03/17/17 20:14 - Additional Findings Additional findings: - Constitutional Appears: No Acute Distress - Head Exam Head Exam: ATRAUMATIC, NORMOCEPHALIC - Eye Exam Eye Exam: Normal appearance - ENT Exam ENT Exam: Mucous Membranes Dry - Respiratory Exam Respiratory Exam: NORMAL BREATHING PATTERN - Cardiovascular Exam Cardiovascular Exam: REGULAR RHYTHM - GI/Abdominal Exam GI & Abdominal Exam: Distended, Soft, Tenderness, Normal Bowel Sounds Additional comments: colostomy pink and patent producing stool - Neurological Exam Neurological Exam: Alert, Awake, Oriented x3 - Psychiatric Exam Psychiatric exam: Normal Affect, Normal Mood - Skin Skin Exam: Dry, Intact, Normal Color, Warm Assessment and Plan - Assessment and Plan (Free Text) Plan: 62M with stage IV colon cancer s/p colectomy and colostomy for obstructing mass POD#10 Stage IV Colon CA (Metastatic Adenocarcinoma) s/p colectomy NPO Pt refusing NGT placement Surgical team, Dr. Steinberg, help appreciated GI, Dr. Esparza, help appreciated Respiratory Failure Pt on ventilator CXR (03/28/17) Extubated (03/24) NC 2L O2 Cefepime Tigecycycline B/l Lobe pneumonia Elevated WBC CXR (03/28/17) Blood cultures Procalcitonin JENNY Cr Anemia Type/screen, Type/cross Monitor Prophylaxis Protonix
--- NOTE | 2017-03-27 08:21 | CP.PCM.PN ---
Subjective - Date & Time of Evaluation Date of Evaluation: 03/27/17 Time of Evaluation: 08:00 - Subjective Subjective: Patient was seen and examined Family member present, the patient was ok with this and family member also participated in the discussion as well. He repeatedly asked if he could have food. He did have 1400 mL of stool recorded yesterday, he denied nausea and vommitting. Will try a liquid diet. He denied chest pain, denied shortness of breath, denied cough. Will get a CXRAY portable. He remains on IV abx Cefepime, Vancomycin, and Flagyl. WBC remains elevated. Objective - Vital Signs/Intake and Output Vital Signs (last 24 hours): Temp Pulse Resp BP Pulse Ox 98.4 F 96 H 30 H 121/72 93 L 03/27/17 04:00 03/27/17 04:02 03/27/17 04:02 03/27/17 04:02 03/27/17 04:00 Intake and Output: 03/27/17 03/27/17 06:59 18:59 Intake Total 856 Output Total 1420 Balance -564 - Medications Medications: Current Medications Albuterol/Ipratropium (Duoneb 3 Mg/0.5 Mg (3 Ml) Ud) 3 ml INH RQ6 [facility] Last Admin: 03/27/17 07:41 Dose: 3 ml Benzocaine/Menthol (Cepacol Sore Throat) 1 michael MT Q4 PRN PRN Reason: Sore Throat Last Admin: 03/24/17 09:18 Dose: 1 michael Home Med (Patient's Own Drops) 0 drop OU BID [facility] Last Admin: 03/26/17 17:54 Dose: 1 drop Home Med (Patient's Own Drops) 0 drop OU HS [facility] Last Admin: 03/27/17 00:10 Dose: 1 drop Metronidazole (Flagyl) 500 mg in 100 mls @ 100 mls/hr IVPB Q8 [facility] Last Admin: 03/27/17 06:39 Dose: 100 mls/hr BUPIVACAINE 0.125%/0.9% NACL (Bupivacaine-Ns 0.125% On-Q Sr Account Executive) 600 mls @ 4 mls/ hr IJ ONCE ONE Stop: 03/27/17 15:29 Last Admin: 03/21/17 12:17 Dose: 4 mls/hr Vancomycin/Sodium Chloride (Vancomycin 1 Gm/Ns 200 Ml) 1 gm in 200 mls @ 133.333 mls/hr IVPB Q24H [facility] Stop: 03/29/17 09:01 Last Admin: 03/26/17 10:39 Dose: 133.333 mls/hr Dextrose/Sodium Chloride (Dextrose 5%/0.9% Ns 1000 Ml) 1,000 mls @ 42 mls/hr IV .[id number] [facility] Last Admin: 03/27/17 00:46 Dose: 42 mls/hr Cefepime HCl (Maxipime Iv 2 Gm Premix) 2 gm in 100 mls @ 200 mls/hr IVPB Q8H [facility] Stop: 04/01/17 04:01 Last Admin: 03/27/17 03:33 Dose: 200 mls/hr Losartan Potassium (Cozaar) 25 mg PO DAILY [facility] Last Admin: 03/26/17 10:40 Dose: 25 mg Metoprolol Tartrate (Lopressor) 25 mg PO BID [facility] Last Admin: 03/26/17 17:54 Dose: 25 mg Ondansetron HCl (Zofran Inj) 4 mg IVP Q4H PRN PRN Reason: Nausea/Vomiting Last Admin: 03/16/17 13:07 Dose: 4 mg Pantoprazole Sodium (Protonix Inj) 40 mg IVP DAILY [facility] Last Admin: 03/26/17 10:40 Dose: 40 mg - Labs Labs: 03/27/17 06:23 03/27/17 06:24 PT 19.4 SECONDS (9.7-12.2) H D 03/17/17 20:14 INR 1.7 D 03/17/17 20:14 APTT 35 SECONDS (21-34) H D 03/17/17 20:14 - Constitutional Appears: Chronically Ill - Head Exam Head Exam: ATRAUMATIC, NORMAL INSPECTION - Eye Exam Eye Exam: EOMI, Normal appearance - ENT Exam ENT Exam: Mucous Membranes Moist - Respiratory Exam Respiratory Exam: Rales, Rhonchi, NORMAL BREATHING PATTERN - Cardiovascular Exam Cardiovascular Exam: REGULAR RHYTHM - GI/Abdominal Exam GI & Abdominal Exam: Distended. absent: Tenderness Additional comments: Colostomy with minimal brown out put, 1400 mL recorded yesterday MARIBELL drain with minimal light pink serrosangious fluid 70 cc recorded - Neurological Exam Neurological Exam: Alert, Awake, Oriented x3 Neuro motor strength exam: Left Upper Extremity: 5, Right Upper Extremity: 5 - Psychiatric Exam Psychiatric exam: Depressed, Flat Affect - Skin Skin Exam: Normal Color, Warm Assessment and Plan - Assessment and Plan (Free Text) Assessment: This is a 62 year old male who came to the hospital on 03/15 with abdominal pain , weight loss, no BMs, and also dark emesis. He was determined to have a a 4.6 x 5 x 7 cm mass that was causing obstruction. This same imaging also suggested a metastatic spread of a cancer to lungs and liver as well. He then underwent a flexible sigmoidscopy on 03/16 and the biopsy showed adenocarcinoma. He underwent an exploratory laparotomy and left hemicolectomy and creation of a colostomy. Patient and family are aware of the adenocarcinoma. 1. 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 03/27: He kept repeatedly asking for food. He did have 1400mL out from colostomy yersterday Will try a liquid diet for now. I cautioned him to eat slowly and he should stop if he cannot tolerate. Consider a repeat CT if needed 03/26: Now POD 9, abdomen is distended. He does not want an NGT for potential suctioning. Continue to monitor 03/25: Patient is now very awake and alert. 03/24: Now POD 6, the tissue from 03/17 has returned showing adenocarcinoma 03/21: Now with colostomy. He is S/P POD 3 of exploratory laparotmy with left hemicolectomy and colostomy. He had takedown of splenic flexure, lysis of adhesions, omentectomy. biopsy. GI consult DR Esparza s/p sigmoidoscopy and biopsy follow biopsy report Patient remains Intubated,todays chext x ray with RLL infiltrate follow up enrollment manager recommendation 2. Ventilator dependent respiratory failure 03/26: He is currently on nasal cannula doing ok. Continue follow CXRAY 03/24: Now extubated, did ok overnight the tube feeds had to be held temporarily and now is restarted 03/23: Remains on CPAPA/PS settings, still has elevated WBC. is aware of poor prognosis 03/22: He tolerated being on CPAP/pressure support settings without incidence overnight hopefully at some point to be extubated 03/21: At this moment is on CPAP/PS settings He has been on IV cefepime, IV tigecyclin, as well as IV flagly The XRAY from today continuing to show infiltrates sedated on MV,urine out is improving 3. Bilateral lobe pneumonia 03/26: Ordered additional blood cultures. Also procalcitonin. 03/24: Now extubated, remains on IV abx. WBC is 26, high procalcitonin. The blood pressures are stable for now. 03/23: Again high WBC, on Azithromycin, Cefepime, Flagyl. Blood and trach cultures negative 03/22: WBC count remains elevated with bandemia. Continue with IV abx. 03/21: As mentioned above, continue with ventilation, follow CXRAYs, IV abx The cultures remain negative at this moment 4. Acute Kidney Injury 03/27: Renal function is now stable. 1400 mL recorded yesterday 03/22: Creatine decreased to 1.2, urine out put 3,500 03/21: Creatine 1.5 today, urine out put was 5,900 over 24hrs 5. Anemia monitor hemoglobin type and screen and follow hemoglobin 6. DVT prophylaxis-SCDs GI prophylaxis-Protonix
--- NOTE | 2017-03-27 09:58 | CP.PCM.PN ---
<Ariana Heath - Last Filed: 03/27/17 20:47> Subjective - Date & Time of Evaluation Date of Evaluation: 03/27/17 Time of Evaluation: 09:36 - Subjective Subjective: General surgery progress note for Dr. Steinberg-Ariana Heath, PGY-1 Pt S & E at bedside. Pt currently OOBTC. Pt reports abdominal distention/bloating/discomfort. Reports passing gas into ostomy bag, some flatus. Has output into ostomy bag. Tolerating liquid diet. Objective - Vital Signs/Intake and Output Vital Signs (last 24 hours): Temp Pulse Resp BP Pulse Ox 98.4 F 96 H 30 H 121/72 93 L 03/27/17 04:00 03/27/17 04:02 03/27/17 04:02 03/27/17 04:02 03/27/17 04:00 Intake and Output: 03/27/17 03/27/17 06:59 18:59 Intake Total 856 Output Total 1420 Balance -564 - Medications Medications: Current Medications Albuterol/Ipratropium (Duoneb 3 Mg/0.5 Mg (3 Ml) Ud) 3 ml INH RQ6 [facility] Last Admin: 03/27/17 07:41 Dose: 3 ml Benzocaine/Menthol (Cepacol Sore Throat) 1 michael MT Q4 PRN PRN Reason: Sore Throat Last Admin: 03/24/17 09:18 Dose: 1 michael Home Med (Patient's Own Drops) 0 drop OU BID [facility] Last Admin: 03/26/17 17:54 Dose: 1 drop Home Med (Patient's Own Drops) 0 drop OU HS [facility] Last Admin: 03/27/17 00:10 Dose: 1 drop Metronidazole (Flagyl) 500 mg in 100 mls @ 100 mls/hr IVPB Q8 [facility] Last Admin: 03/27/17 06:39 Dose: 100 mls/hr BUPIVACAINE 0.125%/0.9% NACL (Bupivacaine-Ns 0.125% On-Q [employer]) 600 mls @ 4 mls/ hr IJ ONCE ONE Stop: 03/27/17 15:29 Last Admin: 03/21/17 12:17 Dose: 4 mls/hr Vancomycin/Sodium Chloride (Vancomycin 1 Gm/Ns 200 Ml) 1 gm in 200 mls @ 133.333 mls/hr IVPB Q24H [facility] Stop: 03/29/17 09:01 Last Admin: 03/26/17 10:39 Dose: 133.333 mls/hr Dextrose/Sodium Chloride (Dextrose 5%/0.9% Ns 1000 Ml) 1,000 mls @ 42 mls/hr IV .[id number] [facility] Last Admin: 03/27/17 00:46 Dose: 42 mls/hr Cefepime HCl (Maxipime Iv 2 Gm Premix) 2 gm in 100 mls @ 200 mls/hr IVPB Q8H [facility] Stop: 04/01/17 04:01 Last Admin: 03/27/17 03:33 Dose: 200 mls/hr Losartan Potassium (Cozaar) 25 mg PO DAILY [facility] Last Admin: 03/26/17 10:40 Dose: 25 mg Metoprolol Tartrate (Lopressor) 25 mg PO BID [facility] Last Admin: 03/26/17 17:54 Dose: 25 mg Ondansetron HCl (Zofran Inj) 4 mg IVP Q4H PRN PRN Reason: Nausea/Vomiting Last Admin: 03/16/17 13:07 Dose: 4 mg Pantoprazole Sodium (Protonix Inj) 40 mg IVP DAILY [facility] Last Admin: 03/26/17 10:40 Dose: 40 mg Simethicone (Mylicon Chew Tab) 80 mg PO TID PRN PRN Reason: GI distress - Labs Labs: 03/27/17 06:23 03/27/17 06:24 PT 19.4 SECONDS (9.7-12.2) H D 03/17/17 20:14 INR 1.7 D 03/17/17 20:14 APTT 35 SECONDS (21-34) H D 03/17/17 20:14 - Constitutional Appears: Non-toxic, No Acute Distress - Head Exam Head Exam: ATRAUMATIC, NORMAL INSPECTION, NORMOCEPHALIC - Eye Exam Eye Exam: EOMI, Normal appearance - ENT Exam ENT Exam: Mucous Membranes Moist, Normal Exam - Neck Exam Neck Exam: Full ROM, Normal Inspection - Respiratory Exam Respiratory Exam: NORMAL BREATHING PATTERN - Cardiovascular Exam Cardiovascular Exam: REGULAR RHYTHM, +S1, +S2 - GI/Abdominal Exam GI & Abdominal Exam: Distended. absent: Guarding, Rigid, Tenderness Additional comments: ostomy with dark green liquid output, air in bag - Extremities Exam Extremities Exam: Normal Inspection - Neurological Exam Neurological Exam: Alert, Awake, CN II-XII Intact, Oriented x3 - Psychiatric Exam Psychiatric exam: Normal Affect, Normal Mood - Skin Skin Exam: Dry, Intact, Normal Color, Warm Assessment and Plan - Assessment and Plan (Free Text) Assessment: 62M with stage IV colon cancer s/p colectomy and colostomy for obstructing mass POD#10 Plan: On FLD- tolerating IV antibiotics as per ID IV fluids Analgesics/Anti-emetics PRN Management as per ICU Started simethicone for distention Started Colace 100mg TID Advance diet slowly due to ileus DW Dr. Maryan Heath, PGY-1 <Trace Steinberg B - Last Filed: 03/28/17 13:18> Objective - Vital Signs/Intake and Output Vital Signs (last 24 hours): Temp Pulse Resp BP Pulse Ox 98 F 103 H 16 124/77 98 03/28/17 04:00 03/28/17 04:00 03/28/17 04:00 03/28/17 09:36 03/28/17 04:00 Intake and Output: 03/28/17 03/28/17 06:59 18:59 Intake Total 936 Output Total 820 Balance 116 - Medications Medications: Current Medications Benzocaine/Menthol (Cepacol Sore Throat) 1 michael MT Q4 PRN PRN Reason: Sore Throat Last Admin: 03/24/17 09:18 Dose: 1 michael Docusate Sodium (Colace) 100 mg PO TID [facility] Last Admin: 03/28/17 09:27 Dose: Not Given Home Med (Patient's Own Drops) 0 drop OU BID [facility] Last Admin: 03/28/17 09:36 Dose: 1 drop Home Med (Patient's Own Drops) 0 drop OU HS [facility] Last Admin: 03/27/17 21:18 Dose: 1 drop Metronidazole (Flagyl) 500 mg in 100 mls @ 100 mls/hr IVPB Q8 [facility] Last Admin: 03/28/17 05:49 Dose: 100 mls/hr Vancomycin/Sodium Chloride (Vancomycin 1 Gm/Ns 200 Ml) 1 gm in 200 mls @ 133.333 mls/hr IVPB Q24H [facility] Stop: 03/29/17 09:01 Last Admin: 03/28/17 09:38 Dose: 133.333 mls/hr Micafungin Sodium 100 mg/ (Sodium Chloride) 100 mls @ 100 mls/hr IV Q24H [facility] Last Admin: 03/28/17 11:18 Dose: 100 mls/hr Meropenem 1 gm/ Sodium (Chloride) 100 mls @ 100 mls/hr IVPB Q8 [facility] Losartan Potassium (Cozaar) 25 mg PO DAILY [facility] Last Admin: 03/28/17 09:35 Dose: 25 mg Metoprolol Tartrate (Lopressor) 25 mg PO BID [facility] Last Admin: 03/28/17 09:36 Dose: 25 mg Ondansetron HCl (Zofran Inj) 4 mg IVP Q4H PRN PRN Reason: Nausea/Vomiting Last Admin: 03/16/17 13:07 Dose: 4 mg Pantoprazole Sodium (Protonix Ec Tab) 40 mg PO DAILY [facility] Last Admin: 03/28/17 10:13 Dose: 40 mg Simethicone (Mylicon Chew Tab) 80 mg PO TID PRN PRN Reason: GI distress - Labs Labs: 03/28/17 06:25 03/28/17 06:23 PT 19.4 SECONDS (9.7-12.2) H D 03/17/17 20:14 INR 1.7 D 03/17/17 20:14 APTT 35 SECONDS (21-34) H D 03/17/17 20:14 Attending/Attestation - Attestation I have personally seen and examined this patient.: Yes I have fully participated in the care of the patient.: Yes I have reviewed all pertinent clinical information, including history, physical exam and plan: Yes Notes (Text): Pt was seen and examined at bedside Agree with above note and assessment Pt with abdominal distention. No N/v WBC is [address] scan of A/P Strat Micofungin, Add Tegacycline and Aztreonam Urine C/S Drain C/s Wound C/S Wound care Plan d.w pt in detail OOB to walk.
[2017-03-27] MEDS: Vancomycin 1 gm/NS 200 ml 1 GM/200 ML BAG IVPB SCH (10:00)
--- NOTE | 2017-03-27 10:08 | RAD ---
Chest x-ray single frontal view History: Shortness of breath. Comparison: 03/24/2017 Findings: Diffuse increased interstitial lung markings which may represent underlying infiltrate or edema. Additional scattered nodular densities throughout both lungs. Clinical correlation. Cardiomegaly. Degenerative changes in the spine and shoulders. Impression: Diffuse increased interstitial lung markings which may represent underlying infiltrate or edema. Additional scattered nodular densities throughout both lungs. Clinical correlation. Cardiomegaly.
[2017-03-27] MEDS: COMBIGAN OU SCH ×2 (10:34→18:20)
[2017-03-28] MEDS: Albuterol-Ipratrop 3 mg / 0.5 (3 ml) UD INH SCH ×2 (01:07→07:23)
[2017-03-28] MEDS: Cefepime IV 2 gm in Dextrose 2 GM/100 ML BAG IVPB SCH (04:19)
[2017-03-28] MEDS: metroNIDAZOLE IV 500 mg/100 ml 500 MG/100 ML BAG IVPB SCH ×3 (05:49→22:01)
[2017-03-28 06:32] LABS: BASO # 0.1 K/uL (0.0-0.2); BASO % 0.4 % (0.0-2.0); EOS # 0.4 K/uL (0.0-0.7); EOS % 1.6 % (0.0-4.0); HEMOGLOBIN 8.2 g/dL (12.0-18.0); LYMPH # 1.7 K/uL (1.0-4.3); LYMPH % 6.7 % (20.0-40.0); MEAN CELL VOLUME 78.4 fL (80.0-94.0); MEAN CORPUSCULAR HEMOGLOBIN 24.5 pg (27.0-31.0); MEAN CORPUSCULAR HGB CONC 31.3 g/dL (33.0-37.0); MEAN PLATELET VOLUME 9.5 fL (7.2-11.7); MONO # 1.6 K/uL (0.0-0.8); MONO % 6.3 % (0.0-10.0); NEUT # 21.2 K/uL (1.8-7.0); PLATELET COUNT 436 K/uL (130-400); RBC 3.36 Mil/uL (4.40-5.90); RED CELL DISTRIBUTION WIDTH 18.7 % (11.5-14.5); WHITE BLOOD COUNT 24.9 K/uL (4.8-10.8)
[2017-03-28 07:01] LABS: ALB/GLOB RATIO 0.9 (1.0-2.1); ALT/SGPT 29 U/L (21-72); AST/SGOT 54 U/L (17-59); BLOOD UREA NITROGEN 24 mg/dL (9-20); GFR AFRICAN-AMERICAN > 60; GFR NON-AFRICAN AMERICAN > 60
[2017-03-28] MEDS ORDERED: Aztreonam 2 GM in Sodium Chloride 0.9% 100 ML IVPB ONE (08:19)
[2017-03-28 08:30] LABS: ANISOCYTOSIS MODERATE; BANDS 6 % (0-2); EOSINOPHIL 3 % (0-4); HYPOCHROMIC MODERATE; LYMPHOCYTE 2 % (20-40); MONOCYTE 8 % (0-10); NEUTROPHIL 81 % (50-75); PLATELET ESTIMATE SLIGHTLY INCREASED (NORMAL); TOTAL CELLS COUNTED 100
[2017-03-28 08:31] LABS: LARGE PLATELETS PRESENT; TARGET CELLS SLIGHT
[2017-03-28] MEDS: Dextrose 5%/0.9% NS 1,000 ML IV SCH (09:34)
[2017-03-28] MEDS: COMBIGAN OU SCH ×2 (09:36→18:06)
[2017-03-28] MEDS: Vancomycin 1 gm/NS 200 ml 1 GM/200 ML BAG IVPB SCH (09:38)
[2017-03-28] MEDS ORDERED: Iohexol 240 (50 ml) PO ONE (10:00)
[2017-03-28] MEDS: Pantoprazole 40 mg EC Tab PO SCH (10:13)
[2017-03-28] MEDS: Micafungin 100 MG in Sodium Chloride 0.9% 100 ML IV SCH (11:18)
--- NOTE | 2017-03-28 11:25 | CP.PCM.PN ---
Subjective - Date & Time of Evaluation Date of Evaluation: 03/28/17 Time of Evaluation: 11:23 - Subjective Subjective: More alert Fair UO JENNY resolved lytes acceptable Objective - Vital Signs/Intake and Output Vital Signs (last 24 hours): Temp Pulse Resp BP Pulse Ox 98 F 103 H 16 124/77 98 03/28/17 04:00 03/28/17 04:00 03/28/17 04:00 03/28/17 09:36 03/28/17 04:00 Intake and Output: 03/28/17 03/28/17 06:59 18:59 Intake Total 936 Output Total 820 Balance 116 - Medications Medications: Current Medications Benzocaine/Menthol (Cepacol Sore Throat) 1 michael MT Q4 PRN PRN Reason: Sore Throat Last Admin: 03/24/17 09:18 Dose: 1 michael Docusate Sodium (Colace) 100 mg PO TID [facility] Last Admin: 03/28/17 09:27 Dose: Not Given Home Med (Patient's Own Drops) 0 drop OU BID [facility] Last Admin: 03/28/17 09:36 Dose: 1 drop Home Med (Patient's Own Drops) 0 drop OU HS [facility] Last Admin: 03/27/17 21:18 Dose: 1 drop Metronidazole (Flagyl) 500 mg in 100 mls @ 100 mls/hr IVPB Q8 [facility] Last Admin: 03/28/17 05:49 Dose: 100 mls/hr Vancomycin/Sodium Chloride (Vancomycin 1 Gm/Ns 200 Ml) 1 gm in 200 mls @ 133.333 mls/hr IVPB Q24H [facility] Stop: 03/29/17 09:01 Last Admin: 03/28/17 09:38 Dose: 133.333 mls/hr Aztreonam 2 gm/ Sodium (Chloride) 100 mls @ 200 mls/hr IVPB ONCE ONE Stop: 03/28/17 08:48 Tigecycline 100 mg/ Sodium (Chloride) 100 mls @ 100 mls/hr IVPB ONCE ONE Stop: 03/28/17 09:21 Micafungin Sodium 100 mg/ (Sodium Chloride) 100 mls @ 100 mls/hr IV Q24H [facility] Last Admin: 03/28/17 11:18 Dose: 100 mls/hr Meropenem 1 gm/ Sodium (Chloride) 100 mls @ 100 mls/hr IVPB Q8 [facility] Losartan Potassium (Cozaar) 25 mg PO DAILY [facility] Last Admin: 03/28/17 09:35 Dose: 25 mg Metoprolol Tartrate (Lopressor) 25 mg PO BID [facility] Last Admin: 03/28/17 09:36 Dose: 25 mg Ondansetron HCl (Zofran Inj) 4 mg IVP Q4H PRN PRN Reason: Nausea/Vomiting Last Admin: 03/16/17 13:07 Dose: 4 mg Pantoprazole Sodium (Protonix Ec Tab) 40 mg PO DAILY [facility] Last Admin: 03/28/17 10:13 Dose: 40 mg Simethicone (Mylicon Chew Tab) 80 mg PO TID PRN PRN Reason: GI distress - Labs Labs: 03/28/17 06:25 03/28/17 06:23 PT 19.4 SECONDS (9.7-12.2) H D 03/17/17 20:14 INR 1.7 D 03/17/17 20:14 APTT 35 SECONDS (21-34) H D 03/17/17 20:14 - Constitutional Appears: No Acute Distress, Chronically Ill - Head Exam Head Exam: ATRAUMATIC, NORMAL INSPECTION - Eye Exam Eye Exam: EOMI, Normal appearance - Neck Exam Neck Exam: Normal Inspection. absent: Tenderness - Respiratory Exam Respiratory Exam: Clear to Ausculation Bilateral, NORMAL BREATHING PATTERN - Cardiovascular Exam Cardiovascular Exam: REGULAR RHYTHM, +S1 - GI/Abdominal Exam GI & Abdominal Exam: Soft. absent: Tenderness - Extremities Exam Extremities Exam: Normal Inspection. absent: Tenderness - Neurological Exam Neurological Exam: Alert, CN II-XII Intact - Skin Skin Exam: Dry, Warm Assessment and Plan (1) Colon cancer Status: Acute (2) JENNY (acute kidney injury) Status: Acute (3) SBO (small bowel obstruction) Status: Acute (4) Dehydration Status: Acute (5) SBO (small bowel obstruction) Status: Acute - Assessment and Plan (Free Text) Plan: Continue to monitor lytes Other care as per medical taem
[2017-03-28] MEDS ORDERED: Iodixanol 320 MG/ML 100 ML BOTTLE IV ONE (12:22)
[2017-03-28] MEDS: Meropenem 1 GM in Sodium Chloride 0.9% 100 ML IVPB SCH ×2 (14:41→23:28)
--- NOTE | 2017-03-28 15:22 | CP.PCM.PN ---
<Michael Granda - Last Filed: 03/28/17 16:17> Subjective - Date & Time of Evaluation Date of Evaluation: 03/28/17 Time of Evaluation: 07:40 - Subjective Subjective: General Surgery Note for Dr. Steinberg Patient seen and examined at bedside. No acute event overnight. Patient denies pain. He admits to some nausea. Patient is tolerating liquid diet. Colostomy had 500cc/24 hrs of output. Patient had no other complaints today. Objective - Vital Signs/Intake and Output Vital Signs (last 24 hours): Temp Pulse Resp BP Pulse Ox 98 F 103 H 16 124/77 98 03/28/17 04:00 03/28/17 04:00 03/28/17 04:00 03/28/17 09:36 03/28/17 04:00 Intake and Output: 03/28/17 03/28/17 06:59 18:59 Intake Total 936 Output Total 820 Balance 116 - Medications Medications: Current Medications Benzocaine/Menthol (Cepacol Sore Throat) 1 michael MT Q4 PRN PRN Reason: Sore Throat Last Admin: 03/24/17 09:18 Dose: 1 michael Docusate Sodium (Colace) 100 mg PO TID [facility] Last Admin: 03/28/17 14:42 Dose: Not Given Home Med (Patient's Own Drops) 0 drop OU BID [facility] Last Admin: 03/28/17 09:36 Dose: 1 drop Home Med (Patient's Own Drops) 0 drop OU HS [facility] Last Admin: 03/27/17 21:18 Dose: 1 drop Metronidazole (Flagyl) 500 mg in 100 mls @ 100 mls/hr IVPB Q8 [facility] Last Admin: 03/28/17 14:38 Dose: 100 mls/hr Vancomycin/Sodium Chloride (Vancomycin 1 Gm/Ns 200 Ml) 1 gm in 200 mls @ 133.333 mls/hr IVPB Q24H [facility] Stop: 03/29/17 09:01 Last Admin: 03/28/17 09:38 Dose: 133.333 mls/hr Micafungin Sodium 100 mg/ (Sodium Chloride) 100 mls @ 100 mls/hr IV Q24H [facility] Last Admin: 03/28/17 11:18 Dose: 100 mls/hr Meropenem 1 gm/ Sodium (Chloride) 100 mls @ 100 mls/hr IVPB Q8 [facility] Last Admin: 03/28/17 14:41 Dose: 100 mls/hr Losartan Potassium (Cozaar) 25 mg PO DAILY [facility] Last Admin: 03/28/17 09:35 Dose: 25 mg Metoprolol Tartrate (Lopressor) 25 mg PO BID [facility] Last Admin: 03/28/17 09:36 Dose: 25 mg Ondansetron HCl (Zofran Inj) 4 mg IVP Q4H PRN PRN Reason: Nausea/Vomiting Last Admin: 03/16/17 13:07 Dose: 4 mg Pantoprazole Sodium (Protonix Ec Tab) 40 mg PO DAILY [facility] Last Admin: 03/28/17 10:13 Dose: 40 mg Simethicone (Mylicon Chew Tab) 80 mg PO TID PRN PRN Reason: GI distress - Labs Labs: 03/28/17 06:25 03/28/17 06:23 PT 19.4 SECONDS (9.7-12.2) H D 03/17/17 20:14 INR 1.7 D 03/17/17 20:14 APTT 35 SECONDS (21-34) H D 03/17/17 20:14 - Constitutional Appears: No Acute Distress - Head Exam Head Exam: ATRAUMATIC, NORMOCEPHALIC - Eye Exam Eye Exam: Normal appearance - ENT Exam ENT Exam: Mucous Membranes Moist - Respiratory Exam Respiratory Exam: NORMAL BREATHING PATTERN - Cardiovascular Exam Cardiovascular Exam: REGULAR RHYTHM - GI/Abdominal Exam GI & Abdominal Exam: Distended, Soft. absent: Firm, Guarding, Rigid, Tenderness , Rebound Additional comments: colostomy pink and patent producing soft brown stool midline incision clean, dry and intact - Extremities Exam Extremities Exam: Normal Capillary Refill. absent: Calf Tenderness - Neurological Exam Neurological Exam: Alert, Awake, Oriented x3 - Psychiatric Exam Psychiatric exam: Normal Affect, Normal Mood - Skin Skin Exam: Dry, Intact, Normal Color, Warm Assessment and Plan - Assessment and Plan (Free Text) Plan: 62M with stage IV colon cancer s/p colectomy and colostomy for obstructing mass POD#11 FLD, ADAT IV antibiotics IV fluids Analgesics/Anti-emetics PRN Simethicone for gas/distention Colace 100 mg PO TID Management as per ICU Discussed with Dr. Maryan Granda PGY1 <Trace Steinberg B - Last Filed: 04/03/17 10:29> Objective - Vital Signs/Intake and Output Vital Signs (last 24 hours): Temp Pulse Resp BP Pulse Ox 98.3 F 92 H 20 142/89 97 04/03/17 08:04 04/03/17 08:04 04/03/17 08:04 04/03/17 09:58 04/03/17 08:04 Intake and Output: 04/03/17 04/03/17 06:59 18:59 Intake Total 690 Output Total 1520 Balance -830 - Medications Medications: Current Medications Albuterol/Ipratropium (Duoneb 3 Mg/0.5 Mg (3 Ml) Ud) 3 ml INH RQ12 [facility] Last Admin: 04/03/17 07:45 Dose: 3 ml Benzocaine/Menthol (Cepacol Sore Throat) 1 michael MT Q4 PRN PRN Reason: Sore Throat Last Admin: 03/24/17 09:18 Dose: 1 michael Docusate Sodium (Colace) 100 mg PO TID [facility] Last Admin: 04/03/17 09:57 Dose: 100 mg Micafungin Sodium 100 mg/ (Sodium Chloride) 100 mls @ 100 mls/hr IV Q24H [facility] Last Admin: 04/03/17 09:57 Dose: 100 mls/hr Meropenem 1 gm/ Sodium (Chloride) 100 mls @ 100 mls/hr IVPB Q8 [facility] Last Admin: 04/03/17 05:20 Dose: 100 mls/hr Losartan Potassium (Cozaar) 25 mg PO DAILY [facility] Last Admin: 04/03/17 09:57 Dose: 25 mg Metoprolol Tartrate (Lopressor) 25 mg PO BID [facility] Last Admin: 04/03/17 09:58 Dose: 25 mg Pantoprazole Sodium (Protonix Ec Tab) 40 mg PO DAILY [facility] Last Admin: 04/03/17 09:57 Dose: 40 mg Simethicone (Mylicon Chew Tab) 80 mg PO TID PRN PRN Reason: GI distress Last Admin: 03/30/17 09:36 Dose: 80 mg - Labs Labs: 04/02/17 11:45 04/02/17 11:45 PT 19.4 SECONDS (9.7-12.2) H D 03/17/17 20:14 INR 1.7 D 03/17/17 20:14 APTT 35 SECONDS (21-34) H D 03/17/17 20:14 Attending/Attestation - Attestation I have personally seen and examined this patient.: Yes I have fully participated in the care of the patient.: Yes I have reviewed all pertinent clinical information, including history, physical exam and plan: Yes Notes (Text): Pt was seen and examined at bedside Agree with above note and assessment Pt with post op ileus Leucocytosis present IV antibiotics local wound care OOB to walk PT Plan d.w pt in detail
--- NOTE | 2017-03-28 15:25 | CT ---
PROCEDURE: CT Chest, Abdomen and Pelvis with intravenous contrast HISTORY: leukocytosis post op COMPARISON: CT abdomen/ pelvis 03/24/2017 TECHNIQUE: IV dose administered: 100 mL Visipaque 320 Radiation dose: Total exam DLP = 1666.38 mGy-cm. This CT exam was performed using one or more of the following dose reduction techniques: Automated exposure control, adjustment of the mA and/or kV according to patient size, and/or use of iterative reconstruction technique. FINDINGS: CT CHEST WITH CONTRAST: LUNGS: Innumerable small nodules diffusely throughout both lungs consistent with widespread metastatic disease. Probable subsegmental atelectasis in right lower lobe, possibly secondary to pleural effusion. This could also represent pleural-based neoplasm. No pulmonary infiltrate. MEDIASTINUM: Unremarkable. Normal caliber aorta and pulmonary arterial trunk. No aortic dissection. Normal size heart. LYMPH NODES: There are enlarged mediastinal lymph nodes with low attenuation centrally consistent with necrotic metastases. Largest such note is in the right hilum and in the sub carinal space. PLEURA: Small right pleural effusion. No left pleural effusion. No pneumothorax. BONES: Unremarkable. OTHER FINDINGS: None. CT ABDOMEN AND PELVIS: LIVER: Innumerable low-density masses throughout the contrast-enhanced liver consistent with widespread metastasis. No biliary ductal dilatation. Normal liver size. GALLBLADDER AND BILE DUCTS: Gallbladder wall appears thickened. No calcified gallstones. Nonspecific finding. PANCREAS: Unremarkable. No gross lesion or ductal dilatation. SPLEEN: Unremarkable. ADRENALS: Unremarkable. No mass. KIDNEYS AND URETERS: Nonspecific small low-density lesion mid right kidney, 9 mm. No calculus. No hydronephrosis. VASCULATURE: Inferior vena caval filter. No aortic aneurysm. BOWEL: Status post left hemicolectomy. Left transverse colostomy. Numerous dilated small bowel loops with collapsed distal ileal loops suggestive of mechanical bowel obstruction. No clear transition point identified. Likely ileal. No abnormal mural thickening. APPENDIX: Normal appendix. PERITONEUM: No ascites. No evidence of pneumoperitoneum. Surgical drain extends to left mid abdomen. LYMPH NODES: Enlarged retroperitoneal, justice hepatis and pelvic/external iliac nodes. Many nodes show central necrosis. BLADDER: Unremarkable. REPRODUCTIVE: Unremarkable prostate BONES: No acute fracture. OTHER FINDINGS: None. IMPRESSION: Widespread metastasis involving lungs, liver, mediastinal and hilar nodes and retroperitoneal and pelvic nodes. Central necrosis is evident within many of the enlarged nodes. Status post left hemicolectomy with left transverse colostomy. Multiple dilated small bowel loops with collapsed distal ileum suspicious for mechanical bowel obstruction. Please correlate. Inferior vena caval filter. No evidence of postoperative abscess.
--- NOTE | 2017-03-28 20:08 | CP.PCM.PN ---
Subjective - Date & Time of Evaluation Date of Evaluation: 03/28/17 Time of Evaluation: 06:06 - Subjective Subjective: Patient seen and examined at bedside. Per nursing no acute events occurred overnight. The patient reports feeling full and gas. The patient denies any chest pain, syncopal episodes, fevers, chills, nausea, vomiting, changes in viison, or any other complaints. Objective - Vital Signs/Intake and Output Vital Signs (last 24 hours): Temp Pulse Resp BP Pulse Ox 97.2 F L 98 H 16 142/71 98 03/28/17 16:00 03/28/17 18:00 03/28/17 04:00 03/28/17 17:49 03/28/17 16:00 - Medications Medications: Current Medications Benzocaine/Menthol (Cepacol Sore Throat) 1 michael MT Q4 PRN PRN Reason: Sore Throat Last Admin: 03/24/17 09:18 Dose: 1 michael Docusate Sodium (Colace) 100 mg PO TID [facility] Last Admin: 03/28/17 17:39 Dose: Not Given Home Med (Patient's Own Drops) 0 drop OU BID [facility] Last Admin: 03/28/17 18:06 Dose: 1 drop Home Med (Patient's Own Drops) 0 drop OU HS [facility] Last Admin: 03/27/17 21:18 Dose: 1 drop Metronidazole (Flagyl) 500 mg in 100 mls @ 100 mls/hr IVPB Q8 [facility] Last Admin: 03/28/17 14:38 Dose: 100 mls/hr Vancomycin/Sodium Chloride (Vancomycin 1 Gm/Ns 200 Ml) 1 gm in 200 mls @ 133.333 mls/hr IVPB Q24H [facility] Stop: 03/29/17 09:01 Last Admin: 03/28/17 09:38 Dose: 133.333 mls/hr Micafungin Sodium 100 mg/ (Sodium Chloride) 100 mls @ 100 mls/hr IV Q24H [facility] Last Admin: 03/28/17 11:18 Dose: 100 mls/hr Meropenem 1 gm/ Sodium (Chloride) 100 mls @ 100 mls/hr IVPB Q8 [facility] Last Admin: 03/28/17 14:41 Dose: 100 mls/hr Losartan Potassium (Cozaar) 25 mg PO DAILY [facility] Last Admin: 03/28/17 09:35 Dose: 25 mg Metoprolol Tartrate (Lopressor) 25 mg PO BID [facility] Last Admin: 03/28/17 17:49 Dose: 25 mg Ondansetron HCl (Zofran Inj) 4 mg IVP Q4H PRN PRN Reason: Nausea/Vomiting Last Admin: 03/16/17 13:07 Dose: 4 mg Pantoprazole Sodium (Protonix Ec Tab) 40 mg PO DAILY [facility] Last Admin: 03/28/17 10:13 Dose: 40 mg Simethicone (Mylicon Chew Tab) 80 mg PO TID PRN PRN Reason: GI distress - Labs Labs: 03/28/17 06:25 03/28/17 06:23 PT 19.4 SECONDS (9.7-12.2) H D 03/17/17 20:14 INR 1.7 D 03/17/17 20:14 APTT 35 SECONDS (21-34) H D 03/17/17 20:14 - Head Exam Head Exam: ATRAUMATIC, NORMAL INSPECTION, NORMOCEPHALIC - Eye Exam Eye Exam: EOMI, Normal appearance, PERRL Pupil Exam: NORMAL ACCOMODATION, PERRL. absent: Irregular, Unequal - ENT Exam ENT Exam: Mucous Membranes Moist, Normal Oropharynx - Neck Exam Neck Exam: Normal Inspection. absent: Lymphadenopathy - Respiratory Exam Respiratory Exam: Clear to Ausculation Bilateral, NORMAL BREATHING PATTERN. absent: Chest Wall Tenderness, Prolonged Expiratory Phase, Respiratory Distress - Cardiovascular Exam Cardiovascular Exam: REGULAR RHYTHM, +S1, +S2 - GI/Abdominal Exam Additional comments: Colostomy in place. - Extremities Exam Extremities Exam: Full ROM, Normal Inspection. absent: Joint Swelling, Pedal Edema, Tenderness - Back Exam Back Exam: NORMAL INSPECTION. absent: CVA tenderness (L), CVA tenderness (R), paraspinal tenderness - Neurological Exam Neurological Exam: Alert, Awake, CN II-XII Intact, Oriented x3 - Psychiatric Exam Psychiatric exam: Normal Affect, Normal Mood - Skin Skin Exam: Dry, Intact, Normal Color Assessment and Plan - Assessment and Plan (Free Text) Assessment: This is a 62 year old male who came to the hospital on 03/15 with abdominal pain , weight loss, no BMs, and also dark emesis. He was determined to have a a 4.6 x 5 x 7 cm mass that was causing obstruction. This same imaging also suggested a metastatic spread of a cancer to lungs and liver as well. He then underwent a flexible sigmoidscopy on 03/16 and the biopsy showed adenocarcinoma. He underwent an exploratory laparotomy and left hemicolectomy and creation of a colostomy. Patient and family are aware of the adenocarcinoma. Plan: 1. 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 03/28: Continue liquid diet as tolerated. 03/27: He kept repeatedly asking for food. He did have 1400mL out from colostomy yesterday Will try a liquid diet for now. I cautioned him to eat slowly and he should stop if he cannot tolerate. Consider a repeat CT if needed 03/26: Now POD 10, abdomen is distended. He does not want an NGT for potential suctioning. Continue to monitor 03/25: Patient is now very awake and alert. 03/24: Now POD 7, the tissue from 03/17 has returned showing adenocarcinoma 03/21: Now with colostomy. He is S/P POD 4 of exploratory laparotmy with left hemicolectomy and colostomy. He had takedown of splenic flexure, lysis of adhesions, omentectomy. biopsy. GI consult DR Esparza s/p sigmoidoscopy and biopsy follow biopsy report Patient remains extubated follow up traffic maintenance officer recommendation 2. Ventilator dependent respiratory failure 03/26: He is currently on nasal cannula doing ok. Continue follow RISHI 03/24: Now extubated, did ok overnight the tube feeds had to be held temporarily and now is restarted 03/23: Remains on CPAPA/PS settings, still has elevated WBC. is aware of poor prognosis 03/22: He tolerated being on CPAP/pressure support settings without incidence overnight hopefully at some point to be extubated 03/21: At this moment is on CPAP/PS settings 3. Bilateral lobe pneumonia 03/28: WBC 24.9 Today. Continue Vancomycin, Micafungin, Flagyl and Meopenem 03/26: Ordered additional blood cultures. Also procalcitonin. 03/24: Now extubated, remains on IV abx. WBC is 26, high procalcitonin. The blood pressures are stable for now. 03/23: Again high WBC, on Azithromycin, Cefepime, Flagyl. Blood and trach cultures negative 03/22: WBC count remains elevated with bandemia. Continue with IV abx. 03/21: As mentioned above, continue with ventilation, follow CXRAYs, IV abx The cultures remain negative at this moment 4. Acute Kidney Injury 03/28: Creatinine 1. Resolved .Will continue to monitor. 03/27: Renal function is now stable. 1400 mL recorded yesterday 03/22: Creatine decreased to 1.2, urine out put 3,500 03/21: Creatine 1.5 today, urine out put was 5,900 over 24hrs 5. Anemia monitor hemoglobin type and screen and follow hemoglobin 6. DVT prophylaxis-SCDs GI prophylaxis-Protonix Disposition: Transferred to Med/Surg today.
--- NOTE | 2017-03-28 21:29 | PN ---
DATE: 03/28/2017 SUBJECTIVE: The patient was seen today and also a call received from Dr. Steinberg to extend the antibiotics. The patient was complaining of discomfort in the abdomen. He wanted to walk out and I told him he cannot, he was in the Kacy chair. PHYSICAL EXAMINATION: VITAL SIGNS: T-max is 98, pulse of 103, blood pressure 124/77 now, respirations were 28 before. HEENT: Head is atraumatic. NECK: Supple. LUNGS: Have bilateral rhonchi. HEART: S1, S2 is regular. ABDOMEN: Remained distended. There was a MARIBELL drain and colostomy present and a surgical wound. EXTREMITIES: Have Venodyne boots on. LABORATORY DATA: Labs were noted. Labs show white count of 24.9, hemoglobin 8.2, hematocrit 26.4, platelet count is 436, and his white count remains up. BUN is 24, creatinine is 1.0. He was on vancomycin, Maxipime, and Flagyl and his sputum had come back with the yeast species, so I decided to add Mycamine, but since white count is not coming down, we changed the Maxipime to meropenem and I am still waiting to here and I am sure he tolerated it well and at this time, the nurse told me that there was a colostomy output last night of 500 mL. So, the colostomy is functioning and while I am dictating my note, I see that the CAT scan report from 03/28/2017, that is today, is there with nobody told me was done. This shows widespread metastasis involving the lungs, liver, mediastinum, hilar nodules, and retroperitoneal and pelvic nodules, central necrosis is evident with many of the enlarged nodes, status post left hemicolectomy with left transverse colostomy, multiple distal small lobes with collapsed distal ileum, suspicious for mechanical bowel obstruction and please correlate IVC filter. There is no postoperative abscess, but he has necrotic and he has metastatic disease. At this time, we will see, we have adjusted these antibiotics and hopefully white count will come down. Cadence Hutchins MD
[2017-03-28] MEDS: TRAVATAN OU SCH (22:02)
[2017-03-29] MEDS: Meropenem 1 GM in Sodium Chloride 0.9% 100 ML IVPB SCH ×3 (05:05→21:40)
[2017-03-29] MEDS: metroNIDAZOLE IV 500 mg/100 ml 500 MG/100 ML BAG IVPB SCH (05:05)
[2017-03-29] MEDS: Pantoprazole 40 mg EC Tab PO SCH (09:22)
[2017-03-29] MEDS: COMBIGAN OU SCH ×2 (09:24→17:54)
[2017-03-29] MEDS: Micafungin 100 MG in Sodium Chloride 0.9% 100 ML IV SCH (10:28)
--- NOTE | 2017-03-29 11:31 | CP.PCM.PN ---
Subjective - Date & Time of Evaluation Date of Evaluation: 03/29/17 Time of Evaluation: 11:30 - Subjective Subjective: seen and examined colostomy reports good uop, good po intake. no nausea vomiting dizziness headache fevers chills sob abd pain labs noted Objective - Vital Signs/Intake and Output Vital Signs (last 24 hours): Temp Pulse Resp BP Pulse Ox 98.5 F 109 H 20 104/85 99 03/29/17 08:00 03/29/17 08:00 03/29/17 08:00 03/29/17 09:22 03/29/17 08:00 Intake and Output: 03/29/17 03/29/17 06:59 18:59 Intake Total 900 Output Total 1060 Balance -160 - Medications Medications: Current Medications Benzocaine/Menthol (Cepacol Sore Throat) 1 michael MT Q4 PRN PRN Reason: Sore Throat Last Admin: 03/24/17 09:18 Dose: 1 michael Docusate Sodium (Colace) 100 mg PO TID [facility] Last Admin: 03/29/17 09:23 Dose: 100 mg Home Med (Patient's Own Drops) 0 drop OU BID [facility] Last Admin: 03/29/17 09:24 Dose: 1 drop Home Med (Patient's Own Drops) 0 drop OU HS [facility] Last Admin: 03/28/17 22:02 Dose: 1 drop Micafungin Sodium 100 mg/ (Sodium Chloride) 100 mls @ 100 mls/hr IV Q24H [facility] Last Admin: 03/29/17 10:28 Dose: 100 mls/hr Meropenem 1 gm/ Sodium (Chloride) 100 mls @ 100 mls/hr IVPB Q8 [facility] Last Admin: 03/29/17 05:05 Dose: 100 mls/hr Losartan Potassium (Cozaar) 25 mg PO DAILY [facility] Last Admin: 03/29/17 09:22 Dose: 25 mg Metoprolol Tartrate (Lopressor) 25 mg PO BID [facility] Last Admin: 03/29/17 09:22 Dose: 25 mg Ondansetron HCl (Zofran Inj) 4 mg IVP Q4H PRN PRN Reason: Nausea/Vomiting Last Admin: 03/16/17 13:07 Dose: 4 mg Pantoprazole Sodium (Protonix Ec Tab) 40 mg PO DAILY [facility] Last Admin: 03/29/17 09:22 Dose: 40 mg Simethicone (Mylicon Chew Tab) 80 mg PO TID PRN PRN Reason: GI distress - Labs Labs: 03/28/17 06:25 03/28/17 06:23 PT 19.4 SECONDS (9.7-12.2) H D 03/17/17 20:14 INR 1.7 D 03/17/17 20:14 APTT 35 SECONDS (21-34) H D 03/17/17 20:14 - Constitutional Appears: Non-toxic, No Acute Distress, Chronically Ill - Head Exam Head Exam: NORMAL INSPECTION - Eye Exam Eye Exam: Normal appearance Pupil Exam: PERRL - ENT Exam ENT Exam: Mucous Membranes Moist, Normal Exam - Neck Exam Neck Exam: Full ROM, Normal Inspection - Respiratory Exam Respiratory Exam: Decreased Breath Sounds (bases), Clear to Ausculation Bilateral, NORMAL BREATHING PATTERN - Cardiovascular Exam Cardiovascular Exam: REGULAR RHYTHM, RRR - GI/Abdominal Exam GI & Abdominal Exam: Distended (colostomy), Soft - Extremities Exam Extremities Exam: Normal Inspection, Pedal Edema Assessment and Plan (1) JENNY (acute kidney injury) Status: Acute (2) Metastatic colon cancer to liver Status: Acute (3) SBO (small bowel obstruction) Status: Acute - Assessment and Plan (Free Text) Assessment: colon ca , SBO s/p colostomy jenny resolved monitor renal function closely, on micafungin lytes acceptable avoid nephrotoxic meds
[2017-03-29] MEDS: Vancomycin 1 gm/NS 200 ml 1 GM/200 ML BAG IVPB SCH (12:04)
[2017-03-29] MEDS ORDERED: Albuterol-Ipratrop 3 mg / 0.5 (3 ml) UD INH PRN (12:49)
[2017-03-29 14:59] LABS: BASO # 0.1 K/uL (0.0-0.2); BASO % 0.3 % (0.0-2.0); EOS # 0.3 K/uL (0.0-0.7); EOS % 1.6 % (0.0-4.0); LYMPH # 1.6 K/uL (1.0-4.3); LYMPH % 7.3 % (20.0-40.0); MEAN CELL VOLUME 77.1 fL (80.0-94.0); MEAN CORPUSCULAR HEMOGLOBIN 24.5 pg (27.0-31.0); MEAN CORPUSCULAR HGB CONC 31.8 g/dL (33.0-37.0); MEAN PLATELET VOLUME 8.6 fL (7.2-11.7); MONO # 1.6 K/uL (0.0-0.8); MONO % 7.3 % (0.0-10.0); NEUT # 18.6 K/uL (1.8-7.0); NEUT % 83.5 % (50.0-75.0); PLATELET COUNT 474 K/uL (130-400); RBC 3.28 Mil/uL (4.40-5.90); RED CELL DISTRIBUTION WIDTH 18.4 % (11.5-14.5); WHITE BLOOD COUNT 22.2 K/uL (4.8-10.8)
[2017-03-29 15:29] LABS: ALB/GLOB RATIO 0.8 (1.0-2.1); ALT/SGPT 32 U/L (21-72); AST/SGOT 48 U/L (17-59); BLOOD UREA NITROGEN 20 mg/dL (9-20); CALCIUM 7.9 mg/dl (8.6-10.4); GFR AFRICAN-AMERICAN > 60; GFR NON-AFRICAN AMERICAN > 60
[2017-03-29 15:44] LABS: BANDS 4 % (0-2); EOSINOPHIL 4 % (0-4); LYMPHOCYTE 4 % (20-40); MONOCYTE 5 % (0-10); NEUTROPHIL 83 % (50-75); PLATELET ESTIMATE NORMAL (NORMAL); TOTAL CELLS COUNTED 100
[2017-03-29 15:45] LABS: ANISOCYTOSIS SLIGHT; HYPOCHROMIC SLIGHT; LARGE PLATELETS PRESENT; MICROCYTOSIS SLIGHT; POIKILOCYTOSIS SLIGHT; TARGET CELLS SLIGHT
--- NOTE | 2017-03-29 16:05 | CP.PCM.PN ---
<Ulices Hernandez - Last Filed: 03/29/17 16:06> Subjective - Date & Time of Evaluation Date of Evaluation: 03/29/17 Time of Evaluation: 16:04 - Subjective Subjective: General Surgery Progress Note for Dr. Steinberg This pt was seen and examined this Am at bedside, no acute events overnight. Pt out of bed, stool in ostomy bag, noticing improvments, no Chest pain sob nausea or vomiting. Objective - Vital Signs/Intake and Output Vital Signs (last 24 hours): Temp Pulse Resp BP Pulse Ox 98.5 F 92 H 20 104/85 99 03/29/17 08:00 03/29/17 15:19 03/29/17 08:00 03/29/17 09:22 03/29/17 15:19 Intake and Output: 03/29/17 03/29/17 06:59 18:59 Intake Total 900 Output Total 1060 300 Balance -160 -300 - Medications Medications: Current Medications Albuterol/Ipratropium (Duoneb 3 Mg/0.5 Mg (3 Ml) Ud) 3 ml INH RQ12 [facility] Benzocaine/Menthol (Cepacol Sore Throat) 1 michael MT Q4 PRN PRN Reason: Sore Throat Last Admin: 03/24/17 09:18 Dose: 1 michael Docusate Sodium (Colace) 100 mg PO TID [facility] Last Admin: 03/29/17 14:20 Dose: 100 mg Home Med (Patient's Own Drops) 0 drop OU BID [facility] Last Admin: 03/29/17 09:24 Dose: 1 drop Home Med (Patient's Own Drops) 0 drop OU HS [facility] Last Admin: 03/28/17 22:02 Dose: 1 drop Micafungin Sodium 100 mg/ (Sodium Chloride) 100 mls @ 100 mls/hr IV Q24H [facility] Last Admin: 03/29/17 10:28 Dose: 100 mls/hr Meropenem 1 gm/ Sodium (Chloride) 100 mls @ 100 mls/hr IVPB Q8 [facility] Last Admin: 03/29/17 14:21 Dose: 100 mls/hr Losartan Potassium (Cozaar) 25 mg PO DAILY [facility] Last Admin: 03/29/17 09:22 Dose: 25 mg Metoprolol Tartrate (Lopressor) 25 mg PO BID [facility] Last Admin: 03/29/17 09:22 Dose: 25 mg Ondansetron HCl (Zofran Inj) 4 mg IVP Q4H PRN PRN Reason: Nausea/Vomiting Last Admin: 03/16/17 13:07 Dose: 4 mg Pantoprazole Sodium (Protonix Ec Tab) 40 mg PO DAILY [facility] Last Admin: 03/29/17 09:22 Dose: 40 mg Simethicone (Mylicon Chew Tab) 80 mg PO TID PRN PRN Reason: GI distress - Labs Labs: 03/29/17 14:55 03/29/17 14:55 PT 19.4 SECONDS (9.7-12.2) H D 03/17/17 20:14 INR 1.7 D 03/17/17 20:14 APTT 35 SECONDS (21-34) H D 03/17/17 20:14 - Constitutional Appears: No Acute Distress - Head Exam Head Exam: ATRAUMATIC, NORMOCEPHALIC - Eye Exam Eye Exam: Normal appearance - ENT Exam ENT Exam: Mucous Membranes Moist - Respiratory Exam Respiratory Exam: NORMAL BREATHING PATTERN - Cardiovascular Exam Cardiovascular Exam: REGULAR RHYTHM - GI/Abdominal Exam GI & Abdominal Exam: Distended, Soft. absent: Firm, Guarding, Rigid, Tenderness , Rebound Additional comments: colostomy pink and patent producing soft brown stool midline incision clean, dry and intact - Extremities Exam Extremities Exam: Normal Capillary Refill. absent: Calf Tenderness - Neurological Exam Neurological Exam: Alert, Awake, Oriented x3 - Psychiatric Exam Psychiatric exam: Normal Affect, Normal Mood - Skin Skin Exam: Dry, Intact, Normal Color, Warm Assessment and Plan - Assessment and Plan (Free Text) Assessment: 62M with stage IV colon cancer s/p colectomy and colostomy for obstructing mass POD#11 IV ABX Regular Diet Colace 100 mg PO TID D/w with Dr. Maryan Hernandez PGY2 <Trace Steinberg B - Last Filed: 04/03/17 10:31> Objective - Vital Signs/Intake and Output Vital Signs (last 24 hours): Temp Pulse Resp BP Pulse Ox 98.3 F 92 H 20 142/89 97 04/03/17 08:04 04/03/17 08:04 04/03/17 08:04 04/03/17 09:58 04/03/17 08:04 Intake and Output: 04/03/17 04/03/17 06:59 18:59 Intake Total 690 Output Total 1520 Balance -830 - Medications Medications: Current Medications Albuterol/Ipratropium (Duoneb 3 Mg/0.5 Mg (3 Ml) Ud) 3 ml INH RQ12 [facility] Last Admin: 04/03/17 07:45 Dose: 3 ml Benzocaine/Menthol (Cepacol Sore Throat) 1 michael MT Q4 PRN PRN Reason: Sore Throat Last Admin: 03/24/17 09:18 Dose: 1 michael Docusate Sodium (Colace) 100 mg PO TID [facility] Last Admin: 04/03/17 09:57 Dose: 100 mg Micafungin Sodium 100 mg/ (Sodium Chloride) 100 mls @ 100 mls/hr IV Q24H [facility] Last Admin: 04/03/17 09:57 Dose: 100 mls/hr Meropenem 1 gm/ Sodium (Chloride) 100 mls @ 100 mls/hr IVPB Q8 [facility] Last Admin: 04/03/17 05:20 Dose: 100 mls/hr Losartan Potassium (Cozaar) 25 mg PO DAILY [facility] Last Admin: 04/03/17 09:57 Dose: 25 mg Metoprolol Tartrate (Lopressor) 25 mg PO BID [facility] Last Admin: 04/03/17 09:58 Dose: 25 mg Pantoprazole Sodium (Protonix Ec Tab) 40 mg PO DAILY [facility] Last Admin: 04/03/17 09:57 Dose: 40 mg Simethicone (Mylicon Chew Tab) 80 mg PO TID PRN PRN Reason: GI distress Last Admin: 03/30/17 09:36 Dose: 80 mg - Labs Labs: 04/02/17 11:45 04/02/17 11:45 PT 19.4 SECONDS (9.7-12.2) H D 03/17/17 20:14 INR 1.7 D 03/17/17 20:14 APTT 35 SECONDS (21-34) H D 03/17/17 20:14 Attending/Attestation - Attestation I have personally seen and examined this patient.: Yes I have fully participated in the care of the patient.: Yes I have reviewed all pertinent clinical information, including history, physical exam and plan: Yes Notes (Text): Pt was seen and examined at bedside Agree with above note and assessment Pt is improving clinically WBC tending down IV antibiotics DC plan Plan d.w pt in detail Risk and benefit explained in detail.
--- NOTE | 2017-03-29 17:05 | CP.PCM.PN ---
Subjective - Date & Time of Evaluation Date of Evaluation: 03/29/17 Time of Evaluation: 06:05 - Subjective Subjective: Patient seen and examined at bedside. Per nursing no acute events occurred overnight. The patient reports feeling nauseas and shortness of breath today. The patient denies any chest pain, syncopal episodes, fevers, chills, nausea, vomiting, changes in vision, or any other complaints. Objective - Vital Signs/Intake and Output Vital Signs (last 24 hours): Temp Pulse Resp BP Pulse Ox 97.5 F L 93 H 20 134/84 100 03/29/17 16:00 03/29/17 16:00 03/29/17 16:00 03/29/17 16:00 03/29/17 16:00 Intake and Output: 03/29/17 03/29/17 06:59 18:59 Intake Total 900 1400 Output Total 1060 1000 Balance -160 400 - Medications Medications: Current Medications Albuterol/Ipratropium (Duoneb 3 Mg/0.5 Mg (3 Ml) Ud) 3 ml INH RQ12 [facility] Benzocaine/Menthol (Cepacol Sore Throat) 1 michael MT Q4 PRN PRN Reason: Sore Throat Last Admin: 03/24/17 09:18 Dose: 1 michael Docusate Sodium (Colace) 100 mg PO TID [facility] Last Admin: 03/29/17 14:20 Dose: 100 mg Home Med (Patient's Own Drops) 0 drop OU BID [facility] Last Admin: 03/29/17 09:24 Dose: 1 drop Home Med (Patient's Own Drops) 0 drop OU HS [facility] Last Admin: 03/28/17 22:02 Dose: 1 drop Micafungin Sodium 100 mg/ (Sodium Chloride) 100 mls @ 100 mls/hr IV Q24H [facility] Last Admin: 03/29/17 10:28 Dose: 100 mls/hr Meropenem 1 gm/ Sodium (Chloride) 100 mls @ 100 mls/hr IVPB Q8 [facility] Last Admin: 03/29/17 14:21 Dose: 100 mls/hr Losartan Potassium (Cozaar) 25 mg PO DAILY [facility] Last Admin: 03/29/17 09:22 Dose: 25 mg Metoprolol Tartrate (Lopressor) 25 mg PO BID [facility] Last Admin: 03/29/17 09:22 Dose: 25 mg Ondansetron HCl (Zofran Inj) 4 mg IVP Q4H PRN PRN Reason: Nausea/Vomiting Last Admin: 03/16/17 13:07 Dose: 4 mg Pantoprazole Sodium (Protonix Ec Tab) 40 mg PO DAILY [facility] Last Admin: 03/29/17 09:22 Dose: 40 mg Simethicone (Mylicon Chew Tab) 80 mg PO TID PRN PRN Reason: GI distress - Labs Labs: 03/29/17 14:55 03/29/17 14:55 PT 19.4 SECONDS (9.7-12.2) H D 03/17/17 20:14 INR 1.7 D 03/17/17 20:14 APTT 35 SECONDS (21-34) H D 03/17/17 20:14 - Head Exam Head Exam: ATRAUMATIC, NORMAL INSPECTION, NORMOCEPHALIC - Eye Exam Eye Exam: EOMI, Normal appearance, PERRL. absent: Periorbital tenderness Pupil Exam: NORMAL ACCOMODATION, PERRL. absent: Irregular, Unequal - ENT Exam ENT Exam: Mucous Membranes Moist, Normal Oropharynx - Neck Exam Neck Exam: absent: Lymphadenopathy, Thyromegaly - Respiratory Exam Respiratory Exam: Decreased Breath Sounds. absent: Chest Wall Tenderness, Prolonged Expiratory Phase, Respiratory Distress - Cardiovascular Exam Cardiovascular Exam: REGULAR RHYTHM, +S1, +S2. absent: Gallop, Rubs - GI/Abdominal Exam GI & Abdominal Exam: Soft, Normal Bowel Sounds. absent: Rigid, Hyperactive Bowel Sounds Additional comments: Colostomy present - Extremities Exam Extremities Exam: Full ROM. absent: Joint Swelling, Pedal Edema, Tenderness - Back Exam Back Exam: absent: paraspinal tenderness - Neurological Exam Neurological Exam: Alert, Awake, CN II-XII Intact - Psychiatric Exam Psychiatric exam: Normal Affect, Normal Mood. absent: Depressed, Flat Affect - Skin Skin Exam: Dry, Intact, Normal Color, Warm. absent: Pallor Assessment and Plan - Assessment and Plan (Free Text) Assessment: This is a 62 year old male who came to the hospital on 03/15 with abdominal pain , weight loss, no BMs, and also dark emesis. He was determined to have a a 4.6 x 5 x 7 cm mass that was causing obstruction. This same imaging also suggested a metastatic spread of a cancer to lungs and liver as well. He then underwent a flexible sigmoidscopy on 03/16 and the biopsy showed adenocarcinoma. He underwent an exploratory laparotomy and left hemicolectomy and creation of a colostomy. Patient and family are aware of the adenocarcinoma. Plan: 1. 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 03/29: Continue liquid diet as tolerated. 03/27: He kept repeatedly asking for food. He did have 1400mL out from colostomy yesterday Will try a liquid diet for now. I cautioned him to eat slowly and he should stop if he cannot tolerate. Consider a repeat CT if needed 03/26: Now POD 11, abdomen is distended. He does not want an NGT for potential suctioning. Continue to monitor 03/25: Patient is now very awake and alert. 03/24: Now POD 8, the tissue from 03/17 has returned showing adenocarcinoma 03/21: Now with colostomy. He is S/P POD 5 of exploratory laparotmy with left hemicolectomy and colostomy. He had takedown of splenic flexure, lysis of adhesions, omentectomy. biopsy. GI consult DR Esparza s/p sigmoidoscopy and biopsy follow biopsy report Patient remains extubated follow up photographer apprentice lithographic recommendation 2. Ventilator dependent respiratory failure 03/29:Continue nasal cannula. Duonebs Started. Will continue to monitor. 03/26: He is currently on nasal cannula doing ok. Continue follow RISHI 03/24: Now extubated, did ok overnight the tube feeds had to be held temporarily and now is restarted 03/23: Remains on CPAPA/PS settings, still has elevated WBC. is aware of poor prognosis 03/22: He tolerated being on CPAP/pressure support settings without incidence overnight hopefully at some point to be extubated 03/21: At this moment is on CPAP/PS settings 3. Bilateral lobe pneumonia 03/29: WBC 22.2 Today. Continue Vancomycin, Micafungin, Flagyl and Meopenem 03/26: Ordered additional blood cultures. Also procalcitonin. 03/24: Now extubated, remains on IV abx. WBC is 26, high procalcitonin. The blood pressures are stable for now. 03/23: Again high WBC, on Azithromycin, Cefepime, Flagyl. Blood and trach cultures negative 03/22: WBC count remains elevated with bandemia. Continue with IV abx. 03/21: As mentioned above, continue with ventilation, follow CXRAYs, IV abx The cultures remain negative at this moment 4. Acute Kidney Injury 03/29: Creatinine 1. Resolved .Will continue to monitor. 03/27: Renal function is now stable. 1400 mL recorded yesterday 03/22: Creatine decreased to 1.2, urine out put 3,500 03/21: Creatine 1.5 today, urine out put was 5,900 over 24hrs 5. Anemia monitor hemoglobin type and screen and follow hemoglobin 6. DVT prophylaxis-SCDs GI prophylaxis-Protonix
[2017-03-29] MEDS: Albuterol-Ipratrop 3 mg / 0.5 (3 ml) UD INH SCH (20:12)
[2017-03-29] MEDS: TRAVATAN OU SCH (21:40)
--- NOTE | 2017-03-29 22:30 | CP.PCM.PN ---
Subjective - Date & Time of Evaluation Date of Evaluation: 03/29/17 Time of Evaluation: 03:15 - Subjective Subjective: Dictated Objective - Vital Signs/Intake and Output Vital Signs (last 24 hours): Temp Pulse Resp BP Pulse Ox 97.5 F L 93 H 20 134/84 100 03/29/17 16:00 03/29/17 16:00 03/29/17 16:00 03/29/17 17:22 03/29/17 16:00 Intake and Output: 03/29/17 03/30/17 18:59 06:59 Intake Total 1400 300 Output Total 1000 500 Balance 400 -200 - Medications Medications: Current Medications Albuterol/Ipratropium (Duoneb 3 Mg/0.5 Mg (3 Ml) Ud) 3 ml INH RQ12 [facility] Last Admin: 03/29/17 20:12 Dose: 3 ml Benzocaine/Menthol (Cepacol Sore Throat) 1 michael MT Q4 PRN PRN Reason: Sore Throat Last Admin: 03/24/17 09:18 Dose: 1 michael Docusate Sodium (Colace) 100 mg PO TID [facility] Last Admin: 03/29/17 17:22 Dose: 100 mg Home Med (Patient's Own Drops) 0 drop OU BID [facility] Last Admin: 03/29/17 17:54 Dose: 1 drop Home Med (Patient's Own Drops) 0 drop OU HS [facility] Last Admin: 03/29/17 21:40 Dose: 1 drop Micafungin Sodium 100 mg/ (Sodium Chloride) 100 mls @ 100 mls/hr IV Q24H [facility] Last Admin: 03/29/17 10:28 Dose: 100 mls/hr Meropenem 1 gm/ Sodium (Chloride) 100 mls @ 100 mls/hr IVPB Q8 [facility] Last Admin: 03/29/17 21:40 Dose: 100 mls/hr Losartan Potassium (Cozaar) 25 mg PO DAILY [facility] Last Admin: 03/29/17 09:22 Dose: 25 mg Metoprolol Tartrate (Lopressor) 25 mg PO BID [facility] Last Admin: 03/29/17 17:22 Dose: 25 mg Ondansetron HCl (Zofran Inj) 4 mg IVP Q4H PRN PRN Reason: Nausea/Vomiting Last Admin: 03/16/17 13:07 Dose: 4 mg Pantoprazole Sodium (Protonix Ec Tab) 40 mg PO DAILY [facility] Last Admin: 03/29/17 09:22 Dose: 40 mg Simethicone (Mylicon Chew Tab) 80 mg PO TID PRN PRN Reason: GI distress - Labs Labs: 03/29/17 14:55 03/29/17 14:55 PT 19.4 SECONDS (9.7-12.2) H D 03/17/17 20:14 INR 1.7 D 03/17/17 20:14 APTT 35 SECONDS (21-34) H D 03/17/17 20:14
--- NOTE | 2017-03-29 22:58 | PN ---
DATE: SUBJECTIVE: The patient says today that he walked few steps, which is surprising. He looks relatively better than yesterday. PHYSICAL EXAMINATION: VITAL SIGNS: T-max is 97.5, pulse 93, blood pressure 134/84, respirations are 20. HEENT: Head is atraumatic, normocephalic. NECK: Supple. LUNGS: Have bilateral occasional rhonchi. HEART: S1 and S2 are regular. ABDOMEN: Remains with colostomy and MARIBELL drain, which was just drained when I saw him. EXTREMITIES: Have bilateral mild edema. LABORATORY DATA: Labs are noted. Labs show white count is 22.2 today, hemoglobin 8, hematocrit is 25.3, platelet count is 474. So white count is coming down. He is on multiple antibiotics at this time. Sodium is 133, potassium 3.6, chloride of 106, CO2 is 19. Procalcitonin was 1.26 yesterday. He had all these CAT scans stat abdomen and pelvis yesterday, which shows there is widespread metastasis of the lung in the mediastinum, hilar nodes, retroperitoneal and pelvic nodes. He has central necrosis of multiple enlarged nodes. Status post left hemicolectomy with left transverse colostomy. Multiple distended small bowel loops with collapsed distal ileum suspicious for mechanical bowel obstruction, but no postop abscess. ASSESSMENT AND PLAN: We will monitor. He does have a bad situation of a metastatic colon cancer and he is on multiple antibiotics at this time with an elevated white count. We will follow and hopefully it will come down to normal. He was started yesterday on meropenem, which is day 2 today and he has been on vancomycin day 3 and micafungin is also day 2 today. Cadence Hutchins MD
[2017-03-30] MEDS: Meropenem 1 GM in Sodium Chloride 0.9% 100 ML IVPB SCH ×3 (05:07→22:13)
[2017-03-30] MEDS: Albuterol-Ipratrop 3 mg / 0.5 (3 ml) UD INH SCH ×2 (07:23→19:45)
[2017-03-30] MEDS: Pantoprazole 40 mg EC Tab PO SCH (09:36)
[2017-03-30] MEDS: Simethicone 80 mg Chewtab PO PRN (09:36)
[2017-03-30] MEDS: COMBIGAN OU SCH ×2 (09:38→18:00)
[2017-03-30] MEDS: Micafungin 100 MG in Sodium Chloride 0.9% 100 ML IV SCH (09:43)
[2017-03-30 11:10] LABS: BASO # 0.1 K/uL (0.0-0.2); BASO % 0.7 % (0.0-2.0); EOS # 0.6 K/uL (0.0-0.7); EOS % 2.8 % (0.0-4.0); HEMOGLOBIN 8.6 g/dL (12.0-18.0); LYMPH # 1.3 K/uL (1.0-4.3); LYMPH % 6.7 % (20.0-40.0); MEAN CELL VOLUME 77.5 fL (80.0-94.0); MEAN CORPUSCULAR HEMOGLOBIN 25.6 pg (27.0-31.0); MEAN PLATELET VOLUME 8.9 fL (7.2-11.7); MONO # 1.4 K/uL (0.0-0.8); MONO % 7.1 % (0.0-10.0); NEUT # 16.2 K/uL (1.8-7.0); NEUT % 82.7 % (50.0-75.0); PLATELET COUNT 548 K/uL (130-400); RBC 3.35 Mil/uL (4.40-5.90); RED CELL DISTRIBUTION WIDTH 19.5 % (11.5-14.5); WHITE BLOOD COUNT 19.6 K/uL (4.8-10.8)
[2017-03-30 11:25] LABS: ALT/SGPT 29 U/L (21-72); AST/SGOT 58 U/L (17-59); GFR AFRICAN-AMERICAN > 60; GFR NON-AFRICAN AMERICAN > 60
[2017-03-30 11:38] LABS: ALB/GLOB RATIO 0.8 (1.0-2.1); BLOOD UREA NITROGEN 17 mg/dL (9-20)
[2017-03-30 12:35] LABS: ANISOCYTOSIS MODERATE; BANDS 6 % (0-2); EOSINOPHIL 2 % (0-4); LYMPHOCYTE 11 % (20-40); MONOCYTE 7 % (0-10); NEUTROPHIL 74 % (50-75); PLATELET ESTIMATE INCREASED (NORMAL); TOTAL CELLS COUNTED 100
[2017-03-30 12:36] LABS: LARGE PLATELETS PRESENT; TARGET CELLS SLIGHT
[2017-03-30 12:37] LABS: HYPOCHROMIC MODERATE
[2017-03-30] MEDS ORDERED: Potassium Chloride 20 mEq ER Tab PO ONE (13:53)
--- NOTE | 2017-03-30 13:55 | CP.PCM.PN ---
<NcioFour States - Last Filed: 03/30/17 17:38> Subjective - Date & Time of Evaluation Date of Evaluation: 03/30/17 Time of Evaluation: 07:55 - Subjective Subjective: Patient seen and examined at bedside. Per nursing no acute events occurred overnight. The patient reports feeling overall weakness and feeling sad about his outcome here. The patient denies any SI, HI, AH, VH at this time. The patient denies any chest pain, syncopal episodes, fevers, chills, nausea, vomiting, changes in vision, or any other complaints. Objective - Vital Signs/Intake and Output Vital Signs (last 24 hours): Temp Pulse Resp BP Pulse Ox 97.4 F L 95 H 20 153/87 H 98 03/30/17 08:54 03/30/17 08:54 03/30/17 08:54 03/30/17 09:41 03/30/17 08:54 Intake and Output: 03/30/17 03/30/17 06:59 18:59 Intake Total 300 250 Output Total 520 100 Balance -220 150 - Medications Medications: Current Medications Albuterol/Ipratropium (Duoneb 3 Mg/0.5 Mg (3 Ml) Ud) 3 ml INH RQ12 [facility] Last Admin: 03/30/17 07:23 Dose: 3 ml Benzocaine/Menthol (Cepacol Sore Throat) 1 michael MT Q4 PRN PRN Reason: Sore Throat Last Admin: 03/24/17 09:18 Dose: 1 michael Docusate Sodium (Colace) 100 mg PO TID [facility] Last Admin: 03/30/17 09:36 Dose: 100 mg Home Med (Patient's Own Drops) 0 drop OU BID [facility] Last Admin: 03/30/17 09:38 Dose: 1 drop Home Med (Patient's Own Drops) 0 drop OU HS [facility] Last Admin: 03/29/17 21:40 Dose: 1 drop Micafungin Sodium 100 mg/ (Sodium Chloride) 100 mls @ 100 mls/hr IV Q24H [facility] Last Admin: 03/30/17 09:43 Dose: 100 mls/hr Meropenem 1 gm/ Sodium (Chloride) 100 mls @ 100 mls/hr IVPB Q8 [facility] Last Admin: 03/30/17 05:07 Dose: 100 mls/hr Losartan Potassium (Cozaar) 25 mg PO DAILY [facility] Last Admin: 03/30/17 09:36 Dose: 25 mg Metoprolol Tartrate (Lopressor) 25 mg PO BID [facility] Last Admin: 03/30/17 09:41 Dose: 25 mg Pantoprazole Sodium (Protonix Ec Tab) 40 mg PO DAILY [facility] Last Admin: 03/30/17 09:36 Dose: 40 mg Potassium Chloride (K-Dur 20 Meq Er Tab) 20 meq PO ONCE ONE Stop: 03/30/17 13:54 Simethicone (Mylicon Chew Tab) 80 mg PO TID PRN PRN Reason: GI distress Last Admin: 03/30/17 09:36 Dose: 80 mg - Labs Labs: 03/30/17 10:59 03/30/17 10:59 PT 19.4 SECONDS (9.7-12.2) H D 03/17/17 20:14 INR 1.7 D 03/17/17 20:14 APTT 35 SECONDS (21-34) H D 03/17/17 20:14 - Head Exam Head Exam: ATRAUMATIC, NORMAL INSPECTION, NORMOCEPHALIC - Eye Exam Eye Exam: EOMI, Normal appearance, PERRL. absent: Periorbital tenderness Pupil Exam: NORMAL ACCOMODATION, PERRL. absent: Irregular, Unequal - ENT Exam ENT Exam: Mucous Membranes Moist, Normal Exam, Normal Oropharynx - Neck Exam Neck Exam: Normal Inspection. absent: Lymphadenopathy, Thyromegaly - Respiratory Exam Respiratory Exam: Decreased Breath Sounds, Clear to Ausculation Bilateral, NORMAL BREATHING PATTERN - Cardiovascular Exam Cardiovascular Exam: REGULAR RHYTHM, +S1, +S2 - GI/Abdominal Exam Additional comments: Colostomy in place - Extremities Exam Extremities Exam: Full ROM, Normal Inspection. absent: Pedal Edema - Back Exam Back Exam: NORMAL INSPECTION. absent: CVA tenderness (L), CVA tenderness (R), paraspinal tenderness - Neurological Exam Neurological Exam: Alert, Awake, CN II-XII Intact, Oriented x3 - Psychiatric Exam Psychiatric exam: Normal Affect, Normal Mood - Skin Skin Exam: Dry, Intact, Normal Color Assessment and Plan - Assessment and Plan (Free Text) Assessment: This is a 62 year old male who came to the hospital on 03/15 with abdominal pain , weight loss, no BMs, and also dark emesis. He was determined to have a a 4.6 x 5 x 7 cm mass that was causing obstruction. This same imaging also suggested a metastatic spread of a cancer to lungs and liver as well. He then underwent a flexible sigmoidscopy on 03/16 and the biopsy showed adenocarcinoma. He underwent an exploratory laparotomy and left hemicolectomy and creation of a colostomy. Patient and family are aware of the adenocarcinoma. 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 03/30: Continue liquid diet as tolerated. 03/27: He kept repeatedly asking for food. He did have 1400mL out from colostomy yesterday Will try a liquid diet for now. I cautioned him to eat slowly and he should stop if he cannot tolerate. Consider a repeat CT if needed 03/26: Now POD 12, abdomen is distended. He does not want an NGT for potential suctioning. Continue to monitor 03/25: Patient is now very awake and alert. 03/24: Now POD 9, the tissue from 03/17 has returned showing adenocarcinoma 03/21: Now with colostomy. He is S/P POD 6 of exploratory laparotmy with left hemicolectomy and colostomy. He had takedown of splenic flexure, lysis of adhesions, omentectomy. biopsy. 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 Patient denies any SI, HI, AH,VH on exam today. Re-consulted Psychiatry for examination. Will f/u with recs. Ventilator dependent respiratory failure 03/30:Continue nasal cannula. Duonebs Started. Will continue to monitor. 03/26: He is currently on nasal cannula doing ok. Continue follow RISHI 03/24: Now extubated, did ok overnight the tube feeds had to be held temporarily and now is restarted 03/23: Remains on CPAPA/PS settings, still has elevated WBC. is aware of poor prognosis 03/22: He tolerated being on CPAP/pressure support settings without incidence overnight hopefully at some point to be extubated 03/21: At this moment is on CPAP/PS settings Bilateral lobe pneumonia 03/29: WBC 19.6 Today. Continue Vancomycin, Micafungin, Flagyl and Meopenem 03/26: Ordered additional blood cultures. Also procalcitonin. 03/24: Now extubated, remains on IV abx. WBC is 26, high procalcitonin. The blood pressures are stable for now. 03/23: Again high WBC, on Azithromycin, Cefepime, Flagyl. Blood and trach cultures negative 03/22: WBC count remains elevated with bandemia. Continue with IV abx. 03/21: As mentioned above, continue with ventilation, follow CXRAYs, IV abx The cultures remain negative at this moment Acute Kidney Injury 03/29: Creatinine 1. Resolved .Will continue to monitor. 03/27: Renal function is now stable. 1400 mL recorded yesterday 03/22: Creatine decreased to 1.2, urine out put 3,500 03/21: Creatine 1 today Anemia monitor hemoglobin type and screen and follow hemoglobin DVT prophylaxis-SCDs GI prophylaxis-Protonix <Hernan Duque - Last Filed: 04/06/17 19:54> Objective - Vital Signs/Intake and Output Vital Signs (last 24 hours): Temp Pulse Resp BP Pulse Ox 98 F 104 H 20 134/64 100 03/30/17 16:00 03/30/17 16:00 03/30/17 16:00 03/30/17 18:08 03/30/17 16:00 Intake and Output: 03/30/17 03/31/17 18:59 06:59 Intake Total 600 Output Total 570 Balance 30 - Medications Medications: Current Medications Albuterol/Ipratropium (Duoneb 3 Mg/0.5 Mg (3 Ml) Ud) 3 ml INH RQ12 [facility] Last Admin: 03/30/17 07:23 Dose: 3 ml Benzocaine/Menthol (Cepacol Sore Throat) 1 michael MT Q4 PRN PRN Reason: Sore Throat Last Admin: 03/24/17 09:18 Dose: 1 michael Docusate Sodium (Colace) 100 mg PO TID [facility] Last Admin: 03/30/17 18:07 Dose: 100 mg Home Med (Patient's Own Drops) 0 drop OU BID [facility] Last Admin: 03/30/17 09:38 Dose: 1 drop Home Med (Patient's Own Drops) 0 drop OU HS [facility] Last Admin: 03/29/17 21:40 Dose: 1 drop Micafungin Sodium 100 mg/ (Sodium Chloride) 100 mls @ 100 mls/hr IV Q24H [facility] Last Admin: 03/30/17 09:43 Dose: 100 mls/hr Meropenem 1 gm/ Sodium (Chloride) 100 mls @ 100 mls/hr IVPB Q8 [facility] Last Admin: 03/30/17 14:11 Dose: 100 mls/hr Losartan Potassium (Cozaar) 25 mg PO DAILY [facility] Last Admin: 03/30/17 09:36 Dose: 25 mg Metoprolol Tartrate (Lopressor) 25 mg PO BID [facility] Last Admin: 03/30/17 18:08 Dose: 25 mg Pantoprazole Sodium (Protonix Ec Tab) 40 mg PO DAILY [facility] Last Admin: 03/30/17 09:36 Dose: 40 mg Simethicone (Mylicon Chew Tab) 80 mg PO TID PRN PRN Reason: GI distress Last Admin: 03/30/17 09:36 Dose: 80 mg - Labs Labs: 03/30/17 10:59 03/30/17 10:59 PT 19.4 SECONDS (9.7-12.2) H D 03/17/17 20:14 INR 1.7 D 03/17/17 20:14 APTT 35 SECONDS (21-34) H D 03/17/17 20:14 Attending/Attestation - Attestation I have personally seen and examined this patient.: Yes I have fully participated in the care of the patient.: Yes I have reviewed all pertinent clinical information, including history, physical exam and plan: Yes Notes (Text): Seen and examined I agree with the resident's assessment and the plan
--- NOTE | 2017-03-30 15:28 | CP.PCM.PN ---
<Hudson Galvan - Last Filed: 03/30/17 15:19> Subjective - Date & Time of Evaluation Date of Evaluation: 03/30/17 Time of Evaluation: 14:10 - Subjective Subjective: General Surgery Pt S&E, NAEO. Ambulating. Tolerating diet. Ostomy functioning. no complaints at this time. Objective - Vital Signs/Intake and Output Vital Signs (last 24 hours): Temp Pulse Resp BP Pulse Ox 97.4 F L 95 H 20 153/87 H 98 03/30/17 08:54 03/30/17 08:54 03/30/17 08:54 03/30/17 09:41 03/30/17 08:54 Intake and Output: 03/30/17 03/30/17 06:59 18:59 Intake Total 300 250 Output Total 520 100 Balance -220 150 - Medications Medications: Current Medications Albuterol/Ipratropium (Duoneb 3 Mg/0.5 Mg (3 Ml) Ud) 3 ml INH RQ12 [facility] Last Admin: 03/30/17 07:23 Dose: 3 ml Benzocaine/Menthol (Cepacol Sore Throat) 1 michael MT Q4 PRN PRN Reason: Sore Throat Last Admin: 03/24/17 09:18 Dose: 1 michael Docusate Sodium (Colace) 100 mg PO TID [facility] Last Admin: 03/30/17 14:12 Dose: 100 mg Home Med (Patient's Own Drops) 0 drop OU BID [facility] Last Admin: 03/30/17 09:38 Dose: 1 drop Home Med (Patient's Own Drops) 0 drop OU HS [facility] Last Admin: 03/29/17 21:40 Dose: 1 drop Micafungin Sodium 100 mg/ (Sodium Chloride) 100 mls @ 100 mls/hr IV Q24H [facility] Last Admin: 03/30/17 09:43 Dose: 100 mls/hr Meropenem 1 gm/ Sodium (Chloride) 100 mls @ 100 mls/hr IVPB Q8 [facility] Last Admin: 03/30/17 14:11 Dose: 100 mls/hr Losartan Potassium (Cozaar) 25 mg PO DAILY [facility] Last Admin: 03/30/17 09:36 Dose: 25 mg Metoprolol Tartrate (Lopressor) 25 mg PO BID [facility] Last Admin: 03/30/17 09:41 Dose: 25 mg Pantoprazole Sodium (Protonix Ec Tab) 40 mg PO DAILY [facility] Last Admin: 03/30/17 09:36 Dose: 40 mg Simethicone (Mylicon Chew Tab) 80 mg PO TID PRN PRN Reason: GI distress Last Admin: 03/30/17 09:36 Dose: 80 mg - Labs Labs: 03/30/17 10:59 03/30/17 10:59 PT 19.4 SECONDS (9.7-12.2) H D 03/17/17 20:14 INR 1.7 D 03/17/17 20:14 APTT 35 SECONDS (21-34) H D 03/17/17 20:14 - Constitutional Appears: Non-toxic, No Acute Distress - Head Exam Head Exam: ATRAUMATIC, NORMOCEPHALIC - Eye Exam Eye Exam: EOMI. absent: Scleral icterus - Respiratory Exam Respiratory Exam: NORMAL BREATHING PATTERN. absent: Respiratory Distress - GI/Abdominal Exam GI & Abdominal Exam: Soft. absent: Distended, Firm, Guarding, Rigid, Tenderness Additional comments: colostomy pink and patent producing soft brown stool midline incision clean, dry and has 2 areas of susana removed. no pus. fascia intact - Neurological Exam Neurological Exam: Alert, Awake, Oriented x3 - Skin Skin Exam: Dry, Warm Assessment and Plan - Assessment and Plan (Free Text) Assessment: 62M with stage IV colon cancer s/p colectomy and colostomy for obstructing mass POD#13 Plan: IV ABX Prostat supplement Monitor leukocytosis Regular Diet Colace 100 mg PO TID Anticipate DC on Tuesday Home health care D/W Dr. Maryan Galvan PGY4 <Trace Steinberg B - Last Filed: 04/03/17 10:32> Objective - Vital Signs/Intake and Output Vital Signs (last 24 hours): Temp Pulse Resp BP Pulse Ox 98.3 F 92 H 20 142/89 97 04/03/17 08:04 04/03/17 08:04 04/03/17 08:04 04/03/17 09:58 04/03/17 08:04 Intake and Output: 04/03/17 04/03/17 06:59 18:59 Intake Total 690 Output Total 1520 Balance -830 - Medications Medications: Current Medications Albuterol/Ipratropium (Duoneb 3 Mg/0.5 Mg (3 Ml) Ud) 3 ml INH RQ12 [facility] Last Admin: 04/03/17 07:45 Dose: 3 ml Benzocaine/Menthol (Cepacol Sore Throat) 1 michael MT Q4 PRN PRN Reason: Sore Throat Last Admin: 03/24/17 09:18 Dose: 1 michael Docusate Sodium (Colace) 100 mg PO TID [facility] Last Admin: 04/03/17 09:57 Dose: 100 mg Micafungin Sodium 100 mg/ (Sodium Chloride) 100 mls @ 100 mls/hr IV Q24H [facility] Last Admin: 04/03/17 09:57 Dose: 100 mls/hr Meropenem 1 gm/ Sodium (Chloride) 100 mls @ 100 mls/hr IVPB Q8 [facility] Last Admin: 04/03/17 05:20 Dose: 100 mls/hr Losartan Potassium (Cozaar) 25 mg PO DAILY [facility] Last Admin: 04/03/17 09:57 Dose: 25 mg Metoprolol Tartrate (Lopressor) 25 mg PO BID [facility] Last Admin: 04/03/17 09:58 Dose: 25 mg Pantoprazole Sodium (Protonix Ec Tab) 40 mg PO DAILY [facility] Last Admin: 04/03/17 09:57 Dose: 40 mg Simethicone (Mylicon Chew Tab) 80 mg PO TID PRN PRN Reason: GI distress Last Admin: 03/30/17 09:36 Dose: 80 mg - Labs Labs: 04/02/17 11:45 04/02/17 11:45 PT 19.4 SECONDS (9.7-12.2) H D 03/17/17 20:14 INR 1.7 D 03/17/17 20:14 APTT 35 SECONDS (21-34) H D 03/17/17 20:14 Attending/Attestation - Attestation I have personally seen and examined this patient.: Yes I have fully participated in the care of the patient.: Yes I have reviewed all pertinent clinical information, including history, physical exam and plan: Yes Notes (Text): Pt was seen and examined at bedside Agree with above note and assessment Pt is improving clinically Wound is healing well C/W IV antibiotics OOB DC plan Plan d.w pt in detail
--- NOTE | 2017-03-30 15:44 | CP.PCM.PN ---
Subjective - Date & Time of Evaluation Date of Evaluation: 03/30/17 Time of Evaluation: 14:00 - Subjective Subjective: no acute complaints appetite fair weak needs assistance for movement no chest pain no sob no cough no nausea no vomiting no diarrhea no rash no headache no fever Objective - Vital Signs/Intake and Output Vital Signs (last 24 hours): Temp Pulse Resp BP Pulse Ox 97.4 F L 95 H 20 153/87 H 98 03/30/17 08:54 03/30/17 08:54 03/30/17 08:54 03/30/17 09:41 03/30/17 08:54 Intake and Output: 03/30/17 03/30/17 06:59 18:59 Intake Total 300 250 Output Total 520 100 Balance -220 150 - Medications Medications: Current Medications Albuterol/Ipratropium (Duoneb 3 Mg/0.5 Mg (3 Ml) Ud) 3 ml INH RQ12 [facility] Last Admin: 03/30/17 07:23 Dose: 3 ml Benzocaine/Menthol (Cepacol Sore Throat) 1 michael MT Q4 PRN PRN Reason: Sore Throat Last Admin: 03/24/17 09:18 Dose: 1 michael Docusate Sodium (Colace) 100 mg PO TID [facility] Last Admin: 03/30/17 14:12 Dose: 100 mg Home Med (Patient's Own Drops) 0 drop OU BID [facility] Last Admin: 03/30/17 09:38 Dose: 1 drop Home Med (Patient's Own Drops) 0 drop OU HS [facility] Last Admin: 03/29/17 21:40 Dose: 1 drop Micafungin Sodium 100 mg/ (Sodium Chloride) 100 mls @ 100 mls/hr IV Q24H [facility] Last Admin: 03/30/17 09:43 Dose: 100 mls/hr Meropenem 1 gm/ Sodium (Chloride) 100 mls @ 100 mls/hr IVPB Q8 [facility] Last Admin: 03/30/17 14:11 Dose: 100 mls/hr Losartan Potassium (Cozaar) 25 mg PO DAILY [facility] Last Admin: 03/30/17 09:36 Dose: 25 mg Metoprolol Tartrate (Lopressor) 25 mg PO BID [facility] Last Admin: 03/30/17 09:41 Dose: 25 mg Pantoprazole Sodium (Protonix Ec Tab) 40 mg PO DAILY [facility] Last Admin: 03/30/17 09:36 Dose: 40 mg Simethicone (Mylicon Chew Tab) 80 mg PO TID PRN PRN Reason: GI distress Last Admin: 03/30/17 09:36 Dose: 80 mg - Labs Labs: 03/30/17 10:59 03/30/17 10:59 PT 19.4 SECONDS (9.7-12.2) H D 03/17/17 20:14 INR 1.7 D 03/17/17 20:14 APTT 35 SECONDS (21-34) H D 03/17/17 20:14 - Constitutional Appears: Non-toxic, Chronically Ill - Head Exam Head Exam: ATRAUMATIC, NORMAL INSPECTION - Eye Exam Eye Exam: EOMI, Normal appearance - Neck Exam Neck Exam: Full ROM. absent: Lymphadenopathy - Respiratory Exam Respiratory Exam: Decreased Breath Sounds. absent: Accessory Muscle Use - Cardiovascular Exam Cardiovascular Exam: REGULAR RHYTHM. absent: Rubs - GI/Abdominal Exam GI & Abdominal Exam: Distended. absent: Guarding Additional comments: colostomy - Extremities Exam Extremities Exam: absent: Pedal Edema Assessment and Plan - Assessment and Plan (Free Text) Assessment: ellie resolved hypokalemia, to monitor, check urine K on ivf rehab post colostomy
[2017-03-30] MEDS: TRAVATAN OU SCH (22:12)
[2017-03-31] MEDS: Meropenem 1 GM in Sodium Chloride 0.9% 100 ML IVPB SCH ×3 (06:02→21:25)
[2017-03-31] MEDS: Albuterol-Ipratrop 3 mg / 0.5 (3 ml) UD INH SCH ×2 (07:27→20:19)
[2017-03-31] MEDS: Pantoprazole 40 mg EC Tab PO SCH (09:24)
[2017-03-31] MEDS: Micafungin 100 MG in Sodium Chloride 0.9% 100 ML IV SCH (09:25)
--- NOTE | 2017-03-31 10:31 | CP.PCM.PN ---
<Erwin Hardin - Last Filed: 03/31/17 17:42> Subjective - Date & Time of Evaluation Date of Evaluation: 03/31/17 Time of Evaluation: 06:50 - Subjective Subjective: General Surgery Progress note- Dr. Steinberg Patient seen and examined at bedside this AM. No acute events overnight. Nursing notes reviewed. Producing stool via ostomy. Denies F/C CP/SOB N/V Objective - Vital Signs/Intake and Output Vital Signs (last 24 hours): Temp Pulse Resp BP Pulse Ox 97.5 F L 106 H 20 142/91 H 98 03/31/17 08:14 03/31/17 08:14 03/31/17 08:14 03/31/17 09:24 03/31/17 08:14 Intake and Output: 03/31/17 03/31/17 06:59 18:59 Intake Total 400 Output Total 960 Balance -560 - Medications Medications: Current Medications Albuterol/Ipratropium (Duoneb 3 Mg/0.5 Mg (3 Ml) Ud) 3 ml INH RQ12 [facility] Last Admin: 03/31/17 07:27 Dose: 3 ml Benzocaine/Menthol (Cepacol Sore Throat) 1 michael MT Q4 PRN PRN Reason: Sore Throat Last Admin: 03/24/17 09:18 Dose: 1 michael Docusate Sodium (Colace) 100 mg PO TID [facility] Last Admin: 03/31/17 09:24 Dose: 100 mg Micafungin Sodium 100 mg/ (Sodium Chloride) 100 mls @ 100 mls/hr IV Q24H [facility] Last Admin: 03/31/17 09:25 Dose: 100 mls/hr Meropenem 1 gm/ Sodium (Chloride) 100 mls @ 100 mls/hr IVPB Q8 [facility] Last Admin: 03/31/17 06:02 Dose: 100 mls/hr Losartan Potassium (Cozaar) 25 mg PO DAILY [facility] Last Admin: 03/31/17 09:24 Dose: 25 mg Metoprolol Tartrate (Lopressor) 25 mg PO BID [facility] Last Admin: 03/31/17 09:24 Dose: 25 mg Pantoprazole Sodium (Protonix Ec Tab) 40 mg PO DAILY [facility] Last Admin: 03/31/17 09:24 Dose: 40 mg Simethicone (Mylicon Chew Tab) 80 mg PO TID PRN PRN Reason: GI distress Last Admin: 03/30/17 09:36 Dose: 80 mg - Labs Labs: 03/30/17 10:59 03/30/17 10:59 PT 19.4 SECONDS (9.7-12.2) H D 03/17/17 20:14 INR 1.7 D 03/17/17 20:14 APTT 35 SECONDS (21-34) H D 03/17/17 20:14 - Constitutional Appears: Non-toxic, No Acute Distress - Head Exam Head Exam: ATRAUMATIC - Eye Exam Eye Exam: EOMI. absent: Scleral icterus - Respiratory Exam Respiratory Exam: NORMAL BREATHING PATTERN. absent: Accessory Muscle Use, Respiratory Distress - Cardiovascular Exam Cardiovascular Exam: +S1, +S2. absent: Bradycardia, Tachycardia - GI/Abdominal Exam GI & Abdominal Exam: Soft. absent: Guarding, Rigid, Tenderness Additional comments: Ostomy [place] patent and producing brown stool - Extremities Exam Extremities Exam: Normal Inspection. absent: Calf Tenderness - Neurological Exam Neurological Exam: Alert, Awake, Oriented x3 - Skin Skin Exam: Intact, Warm Assessment and Plan - Assessment and Plan (Free Text) Assessment: 62M with stage IV colon cancer s/p colectomy and colostomy for obstructing mass POD#14 Plan: - IV ABX - Prostat supplement - Regular Diet - bowel regiment Colace 100 mg PO TID - will consider getting port placement prior to discharge - Anticipate DC on Tuesday - Home health care - further recs Dr. Steinberg surgical attending Erwin Hardin PGY1 <Trace Steinberg - Last Filed: 04/03/17 10:34> Objective - Vital Signs/Intake and Output Vital Signs (last 24 hours): Temp Pulse Resp BP Pulse Ox 98.3 F 92 H 20 142/89 97 04/03/17 08:04 04/03/17 08:04 04/03/17 08:04 04/03/17 09:58 04/03/17 08:04 Intake and Output: 04/03/17 04/03/17 06:59 18:59 Intake Total 690 Output Total 1520 Balance -830 - Medications Medications: Current Medications Albuterol/Ipratropium (Duoneb 3 Mg/0.5 Mg (3 Ml) Ud) 3 ml INH RQ12 [facility] Last Admin: 04/03/17 07:45 Dose: 3 ml Benzocaine/Menthol (Cepacol Sore Throat) 1 michael MT Q4 PRN PRN Reason: Sore Throat Last Admin: 03/24/17 09:18 Dose: 1 michael Docusate Sodium (Colace) 100 mg PO TID [facility] Last Admin: 04/03/17 09:57 Dose: 100 mg Micafungin Sodium 100 mg/ (Sodium Chloride) 100 mls @ 100 mls/hr IV Q24H [facility] Last Admin: 04/03/17 09:57 Dose: 100 mls/hr Meropenem 1 gm/ Sodium (Chloride) 100 mls @ 100 mls/hr IVPB Q8 [facility] Last Admin: 04/03/17 05:20 Dose: 100 mls/hr Losartan Potassium (Cozaar) 25 mg PO DAILY [facility] Last Admin: 04/03/17 09:57 Dose: 25 mg Metoprolol Tartrate (Lopressor) 25 mg PO BID [facility] Last Admin: 04/03/17 09:58 Dose: 25 mg Pantoprazole Sodium (Protonix Ec Tab) 40 mg PO DAILY [facility] Last Admin: 04/03/17 09:57 Dose: 40 mg Simethicone (Mylicon Chew Tab) 80 mg PO TID PRN PRN Reason: GI distress Last Admin: 03/30/17 09:36 Dose: 80 mg - Labs Labs: 04/02/17 11:45 04/02/17 11:45 PT 19.4 SECONDS (9.7-12.2) H D 03/17/17 20:14 INR 1.7 D 03/17/17 20:14 APTT 35 SECONDS (21-34) H D 03/17/17 20:14 Attending/Attestation - Attestation I have personally seen and examined this patient.: Yes I have fully participated in the care of the patient.: Yes I have reviewed all pertinent clinical information, including history, physical exam and plan: Yes Notes (Text): Pt was seen and examined at bedside [place] [address]. Will DC early next week Repeat CBC in am OOB to walk High protein diet Plan d.w pt in detail
[2017-03-31 11:24] LABS: BASO # 0.1 K/uL (0.0-0.2); BASO % 0.7 % (0.0-2.0); EOS # 0.6 K/uL (0.0-0.7); EOS % 3.5 % (0.0-4.0); HEMOGLOBIN 8.3 g/dL (12.0-18.0); LYMPH # 1.5 K/uL (1.0-4.3); LYMPH % 8.1 % (20.0-40.0); MEAN CELL VOLUME 77.5 fL (80.0-94.0); MEAN CORPUSCULAR HEMOGLOBIN 25.5 pg (27.0-31.0); MEAN CORPUSCULAR HGB CONC 32.9 g/dL (33.0-37.0); MEAN PLATELET VOLUME 9.1 fL (7.2-11.7); MONO # 1.5 K/uL (0.0-0.8); MONO % 8.3 % (0.0-10.0); NEUT # 14.4 K/uL (1.8-7.0); NEUT % 79.4 % (50.0-75.0); PLATELET COUNT 460 K/uL (130-400); RBC 3.26 Mil/uL (4.40-5.90); RED CELL DISTRIBUTION WIDTH 20.1 % (11.5-14.5); WHITE BLOOD COUNT 18.1 K/uL (4.8-10.8)
[2017-03-31 11:34] LABS: ALB/GLOB RATIO 0.8 (1.0-2.1); ALBUMIN 2.9 g/dL (3.5-5.0); ALT/SGPT 34 U/L (21-72); AST/SGOT 60 U/L (17-59); BLOOD UREA NITROGEN 15 mg/dL (9-20); CALCIUM 7.8 mg/dl (8.6-10.4); GFR AFRICAN-AMERICAN > 60; GFR NON-AFRICAN AMERICAN > 60
[2017-03-31 12:13] LABS: ANISOCYTOSIS MODERATE; BANDS 6 % (0-2); EOSINOPHIL 3 % (0-4); LYMPHOCYTE 3 % (20-40); MONOCYTE 10 % (0-10); NEUTROPHIL 77 % (50-75); PLATELET ESTIMATE SLIGHTLY INCREASED (NORMAL); REACTIVE LYMPHOCYTES 1 % (0-0); TOTAL CELLS COUNTED 100
[2017-03-31 12:14] LABS: HYPOCHROMIC MODERATE; POIKILOCYTOSIS SLIGHT; TARGET CELLS SLIGHT
[2017-03-31 12:15] LABS: LARGE PLATELETS PRESENT
--- NOTE | 2017-03-31 17:40 | CP.PCM.PN ---
<NicoLjn - Last Filed: 03/31/17 17:46> Subjective - Date & Time of Evaluation Date of Evaluation: 03/31/17 Time of Evaluation: 06:40 - Subjective Subjective: Patient seen and examined at bedside. Per nursing no acute events occurred overnight. The patient feels a little better today after being able to walk around with Physical therapy. The patient denies any SI, HI, AH, VH at this time. The patient denies any chest pain, syncopal episodes, fevers, chills, nausea, vomiting, changes in vision, or any other complaints. Objective - Vital Signs/Intake and Output Vital Signs (last 24 hours): Temp Pulse Resp BP Pulse Ox 97.9 F 101 H 20 143/92 H 99 03/31/17 15:00 03/31/17 15:00 03/31/17 15:00 03/31/17 15:00 03/31/17 15:00 Intake and Output: 03/31/17 03/31/17 06:59 18:59 Intake Total 400 700 Output Total 960 420 Balance -560 280 - Medications Medications: Current Medications Albuterol/Ipratropium (Duoneb 3 Mg/0.5 Mg (3 Ml) Ud) 3 ml INH RQ12 [facility] Last Admin: 03/31/17 07:27 Dose: 3 ml Benzocaine/Menthol (Cepacol Sore Throat) 1 michael MT Q4 PRN PRN Reason: Sore Throat Last Admin: 03/24/17 09:18 Dose: 1 michael Docusate Sodium (Colace) 100 mg PO TID [facility] Last Admin: 03/31/17 13:42 Dose: 100 mg Micafungin Sodium 100 mg/ (Sodium Chloride) 100 mls @ 100 mls/hr IV Q24H [facility] Last Admin: 03/31/17 09:25 Dose: 100 mls/hr Meropenem 1 gm/ Sodium (Chloride) 100 mls @ 100 mls/hr IVPB Q8 [facility] Last Admin: 03/31/17 13:41 Dose: 100 mls/hr Losartan Potassium (Cozaar) 25 mg PO DAILY [facility] Last Admin: 03/31/17 09:24 Dose: 25 mg Metoprolol Tartrate (Lopressor) 25 mg PO BID [facility] Last Admin: 03/31/17 09:24 Dose: 25 mg Pantoprazole Sodium (Protonix Ec Tab) 40 mg PO DAILY [facility] Last Admin: 03/31/17 09:24 Dose: 40 mg Simethicone (Mylicon Chew Tab) 80 mg PO TID PRN PRN Reason: GI distress Last Admin: 03/30/17 09:36 Dose: 80 mg - Labs Labs: 03/31/17 11:13 03/31/17 11:13 PT 19.4 SECONDS (9.7-12.2) H D 03/17/17 20:14 INR 1.7 D 03/17/17 20:14 APTT 35 SECONDS (21-34) H D 03/17/17 20:14 - Head Exam Head Exam: ATRAUMATIC, NORMAL INSPECTION, NORMOCEPHALIC - Eye Exam Eye Exam: EOMI, Normal appearance, PERRL. absent: Periorbital tenderness Pupil Exam: NORMAL ACCOMODATION, PERRL. absent: Irregular, Unequal - ENT Exam ENT Exam: Mucous Membranes Moist, Normal Exam, Normal Oropharynx - Neck Exam Neck Exam: absent: Lymphadenopathy, Thyromegaly - Respiratory Exam Respiratory Exam: Decreased Breath Sounds. absent: Prolonged Expiratory Phase, Rales, Respiratory Distress, Stridor - Cardiovascular Exam Cardiovascular Exam: REGULAR RHYTHM, +S1, +S2 - GI/Abdominal Exam GI & Abdominal Exam: Soft, Normal Bowel Sounds. absent: Rigid, Hyperactive Bowel Sounds Additional comments: colostomy in place - Extremities Exam Extremities Exam: Full ROM, Normal Inspection. absent: Joint Swelling, Pedal Edema, Tenderness - Back Exam Back Exam: NORMAL INSPECTION. absent: CVA tenderness (L), CVA tenderness (R), paraspinal tenderness - Neurological Exam Neurological Exam: Alert, Awake, CN II-XII Intact - Psychiatric Exam Psychiatric exam: Normal Affect, Normal Mood - Skin Skin Exam: Dry, Normal Color, Warm Assessment and Plan - Assessment and Plan (Free Text) Assessment: This is a 62 year old male who came to the hospital on 03/15 with abdominal pain , weight loss, no BMs, and also dark emesis. He was determined to have a a 4.6 x 5 x 7 cm mass that was causing obstruction. This same imaging also suggested a metastatic spread of a cancer to lungs and liver as well. He then underwent a flexible sigmoidscopy on 03/16 and the biopsy showed adenocarcinoma. He underwent an exploratory laparotomy and left hemicolectomy and creation of a colostomy. Patient and family are aware of the adenocarcinoma. 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 03/30: Continue liquid diet as tolerated. 03/27: He kept repeatedly asking for food. He did have 1400mL out from colostomy yesterday Will try a liquid diet for now. I cautioned him to eat slowly and he should stop if he cannot tolerate. Consider a repeat CT if needed 03/26: Now POD 13, abdomen is distended. He does not want an NGT for potential suctioning. Continue to monitor 03/25: Patient is now very awake and alert. 03/24: Now POD 10, the tissue from 03/17 has returned showing adenocarcinoma 03/21: Now with colostomy. He is S/P POD 7 of exploratory laparotmy with left hemicolectomy and colostomy. He had takedown of splenic flexure, lysis of adhesions, omentectomy. biopsy. GI consult DR Esparza s/p sigmoidoscopy and biopsy follow biopsy report Patient remains extubated follow up wound nurse recommendation Depression Patient reports feeling sad in regards to his prognosis. Patient denies any SI, HI, AH,VH on exam today. Re-consulted Psychiatry for examination. Will f/u with recs. Ventilator dependent respiratory failure 03/30:Continue nasal cannula. Duonebs Started. Will continue to monitor. 03/26: He is currently on nasal cannula doing ok. Continue follow RISHI 03/24: Now extubated, did ok overnight the tube feeds had to be held temporarily and now is restarted 03/23: Remains on CPAPA/PS settings, still has elevated WBC. is aware of poor prognosis 03/22: He tolerated being on CPAP/pressure support settings without incidence overnight hopefully at some point to be extubated 03/21: At this moment is on CPAP/PS settings Bilateral lobe pneumonia 03/31: WBC 18.1 Today. Continue Vancomycin, Micafungin, Flagyl and Meopenem 03/26: Ordered additional blood cultures. Also procalcitonin. 03/24: Now extubated, remains on IV abx. WBC is 26, high procalcitonin. The blood pressures are stable for now. 03/23: Again high WBC, on Azithromycin, Cefepime, Flagyl. Blood and trach cultures negative 03/22: WBC count remains elevated with bandemia. Continue with IV abx. 03/21: As mentioned above, continue with ventilation, follow CXRAYs, IV abx The cultures remain negative at this moment Acute Kidney Injury 03/29: Creatinine .9. Resolved .Will continue to monitor. 03/27: Renal function is now stable. 1400 mL recorded yesterday 03/22: Creatine decreased to 1.2, urine out put 3,500 Anemia monitor hemoglobin type and screen and follow hemoglobin DVT prophylaxis-SCDs GI prophylaxis-Protonix <Hernan Duque - Last Filed: 04/03/17 19:12> Objective - Vital Signs/Intake and Output Vital Signs (last 24 hours): Temp Pulse Resp BP Pulse Ox 98.5 F 97 H 20 144/94 H 100 04/03/17 14:00 04/03/17 14:00 04/03/17 14:00 04/03/17 17:38 04/03/17 14:00 - Medications Medications: Current Medications Albuterol/Ipratropium (Duoneb 3 Mg/0.5 Mg (3 Ml) Ud) 3 ml INH RQ12 [facility] Last Admin: 04/03/17 07:45 Dose: 3 ml Benzocaine/Menthol (Cepacol Sore Throat) 1 michael MT Q4 PRN PRN Reason: Sore Throat Last Admin: 03/24/17 09:18 Dose: 1 michael Docusate Sodium (Colace) 100 mg PO TID [facility] Last Admin: 04/03/17 17:38 Dose: 100 mg Micafungin Sodium 100 mg/ (Sodium Chloride) 100 mls @ 100 mls/hr IV Q24H [facility] Last Admin: 04/03/17 09:57 Dose: 100 mls/hr Meropenem 1 gm/ Sodium (Chloride) 100 mls @ 100 mls/hr IVPB Q8 [facility] Last Admin: 04/03/17 15:15 Dose: 100 mls/hr Losartan Potassium (Cozaar) 25 mg PO DAILY [facility] Last Admin: 04/03/17 09:57 Dose: 25 mg Metoprolol Tartrate (Lopressor) 25 mg PO BID [facility] Last Admin: 04/03/17 17:38 Dose: 25 mg Pantoprazole Sodium (Protonix Ec Tab) 40 mg PO DAILY [facility] Last Admin: 04/03/17 09:57 Dose: 40 mg Simethicone (Mylicon Chew Tab) 80 mg PO TID PRN PRN Reason: GI distress Last Admin: 03/30/17 09:36 Dose: 80 mg - Labs Labs: 04/03/17 11:38 04/03/17 11:38 PT 19.4 SECONDS (9.7-12.2) H D 03/17/17 20:14 INR 1.7 D 03/17/17 20:14 APTT 35 SECONDS (21-34) H D 03/17/17 20:14 Attending/Attestation - Attestation I have personally seen and examined this patient.: Yes I have fully participated in the care of the patient.: Yes I have reviewed all pertinent clinical information, including history, physical exam and plan: Yes Notes (Text): Seen and examined improving tolerating diet,having BM no complain d/w the resident and I agree with the documentation
--- NOTE | 2017-03-31 20:02 | CP.PCM.PN ---
Subjective - Date & Time of Evaluation Date of Evaluation: 03/31/17 Time of Evaluation: 05:00 - Subjective Subjective: dictated Objective - Vital Signs/Intake and Output Vital Signs (last 24 hours): Temp Pulse Resp BP Pulse Ox 97.9 F 101 H 20 144/92 H 99 03/31/17 15:00 03/31/17 15:00 03/31/17 15:00 03/31/17 17:52 03/31/17 15:00 Intake and Output: 03/31/17 04/01/17 18:59 06:59 Intake Total 700 Output Total 420 Balance 280 - Medications Medications: Current Medications Albuterol/Ipratropium (Duoneb 3 Mg/0.5 Mg (3 Ml) Ud) 3 ml INH RQ12 [facility] Last Admin: 03/31/17 07:27 Dose: 3 ml Benzocaine/Menthol (Cepacol Sore Throat) 1 michael MT Q4 PRN PRN Reason: Sore Throat Last Admin: 03/24/17 09:18 Dose: 1 michael Docusate Sodium (Colace) 100 mg PO TID [facility] Last Admin: 03/31/17 17:52 Dose: 100 mg Micafungin Sodium 100 mg/ (Sodium Chloride) 100 mls @ 100 mls/hr IV Q24H [facility] Last Admin: 03/31/17 09:25 Dose: 100 mls/hr Meropenem 1 gm/ Sodium (Chloride) 100 mls @ 100 mls/hr IVPB Q8 [facility] Last Admin: 03/31/17 13:41 Dose: 100 mls/hr Losartan Potassium (Cozaar) 25 mg PO DAILY [facility] Last Admin: 03/31/17 09:24 Dose: 25 mg Metoprolol Tartrate (Lopressor) 25 mg PO BID [facility] Last Admin: 03/31/17 17:52 Dose: 25 mg Pantoprazole Sodium (Protonix Ec Tab) 40 mg PO DAILY [facility] Last Admin: 03/31/17 09:24 Dose: 40 mg Simethicone (Mylicon Chew Tab) 80 mg PO TID PRN PRN Reason: GI distress Last Admin: 03/30/17 09:36 Dose: 80 mg - Labs Labs: 03/31/17 11:13 03/31/17 11:13 PT 19.4 SECONDS (9.7-12.2) H D 03/17/17 20:14 INR 1.7 D 03/17/17 20:14 APTT 35 SECONDS (21-34) H D 03/17/17 20:14
[2017-04-01] MEDS: Meropenem 1 GM in Sodium Chloride 0.9% 100 ML IVPB SCH ×3 (05:20→22:00)
[2017-04-01] MEDS: Albuterol-Ipratrop 3 mg / 0.5 (3 ml) UD INH SCH ×2 (08:00→19:39)
[2017-04-01] MEDS: Micafungin 100 MG in Sodium Chloride 0.9% 100 ML IV SCH (10:33)
[2017-04-01] MEDS: Pantoprazole 40 mg EC Tab PO SCH (10:33)
--- NOTE | 2017-04-01 13:59 | CP.PCM.PN ---
Subjective - Date & Time of Evaluation Date of Evaluation: 04/01/17 Time of Evaluation: 13:57 - Subjective Subjective: appears same; no new events noted UO- adequate JENNY has resolved ; lytes stable abdomen distended Objective - Vital Signs/Intake and Output Vital Signs (last 24 hours): Temp Pulse Resp BP Pulse Ox 98.0 F 101 H 20 150/90 100 04/01/17 00:00 04/01/17 00:00 04/01/17 00:00 04/01/17 10:33 04/01/17 00:00 Intake and Output: 04/01/17 04/01/17 06:59 18:59 Intake Total 100 Output Total 220 Balance -120 - Medications Medications: Current Medications Albuterol/Ipratropium (Duoneb 3 Mg/0.5 Mg (3 Ml) Ud) 3 ml INH RQ12 [facility] Last Admin: 03/31/17 20:19 Dose: 3 ml Benzocaine/Menthol (Cepacol Sore Throat) 1 michael MT Q4 PRN PRN Reason: Sore Throat Last Admin: 03/24/17 09:18 Dose: 1 michael Docusate Sodium (Colace) 100 mg PO TID [facility] Last Admin: 04/01/17 13:52 Dose: 100 mg Micafungin Sodium 100 mg/ (Sodium Chloride) 100 mls @ 100 mls/hr IV Q24H [facility] Last Admin: 04/01/17 10:33 Dose: 100 mls/hr Meropenem 1 gm/ Sodium (Chloride) 100 mls @ 100 mls/hr IVPB Q8 [facility] Last Admin: 04/01/17 13:51 Dose: 100 mls/hr Losartan Potassium (Cozaar) 25 mg PO DAILY [facility] Last Admin: 04/01/17 10:33 Dose: 25 mg Metoprolol Tartrate (Lopressor) 25 mg PO BID [facility] Last Admin: 04/01/17 10:33 Dose: 25 mg Pantoprazole Sodium (Protonix Ec Tab) 40 mg PO DAILY [facility] Last Admin: 04/01/17 10:33 Dose: 40 mg Simethicone (Mylicon Chew Tab) 80 mg PO TID PRN PRN Reason: GI distress Last Admin: 03/30/17 09:36 Dose: 80 mg - Labs Labs: 03/31/17 11:13 03/31/17 11:13 PT 19.4 SECONDS (9.7-12.2) H D 03/17/17 20:14 INR 1.7 D 03/17/17 20:14 APTT 35 SECONDS (21-34) H D 03/17/17 20:14 - Constitutional Appears: No Acute Distress, Chronically Ill - Head Exam Head Exam: ATRAUMATIC, NORMAL INSPECTION - Eye Exam Eye Exam: EOMI, Normal appearance - Neck Exam Neck Exam: Normal Inspection. absent: Tenderness - Respiratory Exam Respiratory Exam: Clear to Ausculation Bilateral, NORMAL BREATHING PATTERN - Cardiovascular Exam Cardiovascular Exam: REGULAR RHYTHM, +S1 - GI/Abdominal Exam GI & Abdominal Exam: Soft, Tenderness - Extremities Exam Extremities Exam: Normal Inspection. absent: Tenderness - Neurological Exam Neurological Exam: Awake, CN II-XII Intact - Skin Skin Exam: Dry, Warm Assessment and Plan (1) Colon cancer Status: Acute (2) JENNY (acute kidney injury) Status: Acute (3) SBO (small bowel obstruction) Status: Acute (4) Dehydration Status: Acute (5) SBO (small bowel obstruction) Status: Acute - Assessment and Plan (Free Text) Plan: repeat chemistries monitor lytes closely
--- NOTE | 2017-04-01 15:30 | CP.PCM.PN ---
<NicoLjn - Last Filed: 04/01/17 19:37> Subjective - Date & Time of Evaluation Date of Evaluation: 04/01/17 Time of Evaluation: 07:30 - Subjective Subjective: Patient seen and examined at bedside. Per nursing no acute events occurred overnight. The patient feels about the same today when walking with. physical therapy. The patient denies any chest pain, syncopal episodes, fevers, chills, nausea, vomiting, changes in vision, or any other complaints. Objective - Vital Signs/Intake and Output Vital Signs (last 24 hours): Temp Pulse Resp BP Pulse Ox 97.6 F 109 H 20 150/90 99 04/01/17 08:00 04/01/17 08:00 04/01/17 08:00 04/01/17 10:33 04/01/17 08:00 Intake and Output: 04/01/17 04/01/17 06:59 18:59 Intake Total 700 Output Total 550 Balance 150 - Medications Medications: Current Medications Albuterol/Ipratropium (Duoneb 3 Mg/0.5 Mg (3 Ml) Ud) 3 ml INH RQ12 [facility] Last Admin: 04/01/17 08:00 Dose: Not Given Benzocaine/Menthol (Cepacol Sore Throat) 1 michael MT Q4 PRN PRN Reason: Sore Throat Last Admin: 03/24/17 09:18 Dose: 1 michael Docusate Sodium (Colace) 100 mg PO TID [facility] Last Admin: 04/01/17 13:52 Dose: 100 mg Micafungin Sodium 100 mg/ (Sodium Chloride) 100 mls @ 100 mls/hr IV Q24H [facility] Last Admin: 04/01/17 10:33 Dose: 100 mls/hr Meropenem 1 gm/ Sodium (Chloride) 100 mls @ 100 mls/hr IVPB Q8 [facility] Last Admin: 04/01/17 13:51 Dose: 100 mls/hr Losartan Potassium (Cozaar) 25 mg PO DAILY [facility] Last Admin: 04/01/17 10:33 Dose: 25 mg Metoprolol Tartrate (Lopressor) 25 mg PO BID [facility] Last Admin: 04/01/17 10:33 Dose: 25 mg Pantoprazole Sodium (Protonix Ec Tab) 40 mg PO DAILY [facility] Last Admin: 04/01/17 10:33 Dose: 40 mg Simethicone (Mylicon Chew Tab) 80 mg PO TID PRN PRN Reason: GI distress Last Admin: 03/30/17 09:36 Dose: 80 mg - Labs Labs: 03/31/17 11:13 03/31/17 11:13 PT 19.4 SECONDS (9.7-12.2) H D 03/17/17 20:14 INR 1.7 D 03/17/17 20:14 APTT 35 SECONDS (21-34) H D 03/17/17 20:14 Assessment and Plan - Assessment and Plan (Free Text) Assessment: This is a 62 year old male who came to the hospital on 03/15 with abdominal pain , weight loss, no BMs, and also dark emesis. He was determined to have a a 4.6 x 5 x 7 cm mass that was causing obstruction. This same imaging also suggested a metastatic spread of a cancer to lungs and liver as well. He then underwent a flexible sigmoidscopy on 03/16 and the biopsy showed adenocarcinoma. He underwent an exploratory laparotomy and left hemicolectomy and creation of a colostomy. Patient and family are aware of the adenocarcinoma. 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 04/01: Patient white count still elevated and surgery would like to continue to monitor before clearing for discharge. 03/30: Continue liquid diet as tolerated. 03/27: He kept repeatedly asking for food. He did have 1400mL out from colostomy yesterday Will try a liquid diet for now. I cautioned him to eat slowly and he should stop if he cannot tolerate. Consider a repeat CT if needed 03/26: Now POD 13, abdomen is distended. He does not want an NGT for potential suctioning. Continue to monitor 03/25: Patient is now very awake and alert. 03/24: Now POD 10, the tissue from 03/17 has returned showing adenocarcinoma 03/21: Now with colostomy. He is S/P POD 7 of exploratory laparotmy with left hemicolectomy and colostomy. He had takedown of splenic flexure, lysis of adhesions, omentectomy. biopsy. 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 Patient denies any SI, HI, AH,VH on exam today. Re-consulted Psychiatry for examination. Will f/u with recs. Ventilator dependent respiratory failure 03/30:Continue nasal cannula. Duonebs Started. Will continue to monitor. 03/26: He is currently on nasal cannula doing ok. Continue follow RISHI 03/24: Now extubated, did ok overnight the tube feeds had to be held temporarily and now is restarted 03/23: Remains on CPAPA/PS settings, still has elevated WBC. is aware of poor prognosis 03/22: He tolerated being on CPAP/pressure support settings without incidence overnight hopefully at some point to be extubated 03/21: At this moment is on CPAP/PS settings Bilateral lobe pneumonia 03/31: WBC 18.1 Today. Continue Vancomycin, Micafungin, Flagyl and Meopenem 03/26: Ordered additional blood cultures. Also procalcitonin. 03/24: Now extubated, remains on IV abx. WBC is 26, high procalcitonin. The blood pressures are stable for now. 03/23: Again high WBC, on Azithromycin, Cefepime, Flagyl. Blood and trach cultures negative 03/22: WBC count remains elevated with bandemia. Continue with IV abx. 03/21: As mentioned above, continue with ventilation, follow CXRAYs, IV abx The cultures remain negative at this moment Acute Kidney Injury 03/29: Creatinine .9. Resolved .Will continue to monitor. 03/27: Renal function is now stable. 1400 mL recorded yesterday 03/22: Creatine decreased to 1.2, urine out put 3,500 Anemia monitor hemoglobin type and screen and follow hemoglobin DVT prophylaxis-SCDs GI prophylaxis-Protonix <Hernan Duque - Last Filed: 04/03/17 19:10> Objective - Vital Signs/Intake and Output Vital Signs (last 24 hours): Temp Pulse Resp BP Pulse Ox 98.5 F 97 H 20 144/94 H 100 04/03/17 14:00 04/03/17 14:00 04/03/17 14:00 04/03/17 17:38 04/03/17 14:00 - Medications Medications: Current Medications Albuterol/Ipratropium (Duoneb 3 Mg/0.5 Mg (3 Ml) Ud) 3 ml INH RQ12 [facility] Last Admin: 04/03/17 07:45 Dose: 3 ml Benzocaine/Menthol (Cepacol Sore Throat) 1 michael MT Q4 PRN PRN Reason: Sore Throat Last Admin: 03/24/17 09:18 Dose: 1 michael Docusate Sodium (Colace) 100 mg PO TID [facility] Last Admin: 04/03/17 17:38 Dose: 100 mg Micafungin Sodium 100 mg/ (Sodium Chloride) 100 mls @ 100 mls/hr IV Q24H [facility] Last Admin: 04/03/17 09:57 Dose: 100 mls/hr Meropenem 1 gm/ Sodium (Chloride) 100 mls @ 100 mls/hr IVPB Q8 [facility] Last Admin: 04/03/17 15:15 Dose: 100 mls/hr Losartan Potassium (Cozaar) 25 mg PO DAILY [facility] Last Admin: 04/03/17 09:57 Dose: 25 mg Metoprolol Tartrate (Lopressor) 25 mg PO BID [facility] Last Admin: 04/03/17 17:38 Dose: 25 mg Pantoprazole Sodium (Protonix Ec Tab) 40 mg PO DAILY [facility] Last Admin: 04/03/17 09:57 Dose: 40 mg Simethicone (Mylicon Chew Tab) 80 mg PO TID PRN PRN Reason: GI distress Last Admin: 03/30/17 09:36 Dose: 80 mg - Labs Labs: 04/03/17 11:38 04/03/17 11:38 PT 19.4 SECONDS (9.7-12.2) H D 03/17/17 20:14 INR 1.7 D 03/17/17 20:14 APTT 35 SECONDS (21-34) H D 03/17/17 20:14 Attending/Attestation - Attestation I have personally seen and examined this patient.: Yes I have fully participated in the care of the patient.: Yes I have reviewed all pertinent clinical information, including history, physical exam and plan: Yes Notes (Text): Seen and examined patient is improving but has leukocytosis Discussed with the infectious disease physician Dr Hutchins and surgeon Dr Steinberg Patient will be monitored on IV antibiotics next few days
--- NOTE | 2017-04-01 16:55 | CP.PCM.PN ---
<Hudson Galvan - Last Filed: 04/01/17 16:51> Subjective - Date & Time of Evaluation Date of Evaluation: 04/01/17 Time of Evaluation: 06:50 - Subjective Subjective: General Surgery Pt S&E No acute events overnight. Ambulating. Denies F/C, CP, SOB, N/V Objective - Vital Signs/Intake and Output Vital Signs (last 24 hours): Temp Pulse Resp BP Pulse Ox 97.6 F 88 20 150/90 99 04/01/17 08:00 04/01/17 16:12 04/01/17 08:00 04/01/17 16:12 04/01/17 08:00 Intake and Output: 04/01/17 04/01/17 06:59 18:59 Intake Total 700 Output Total 550 Balance 150 - Medications Medications: Current Medications Albuterol/Ipratropium (Duoneb 3 Mg/0.5 Mg (3 Ml) Ud) 3 ml INH RQ12 [facility] Last Admin: 04/01/17 08:00 Dose: Not Given Benzocaine/Menthol (Cepacol Sore Throat) 1 michael MT Q4 PRN PRN Reason: Sore Throat Last Admin: 03/24/17 09:18 Dose: 1 michael Docusate Sodium (Colace) 100 mg PO TID [facility] Last Admin: 04/01/17 13:52 Dose: 100 mg Micafungin Sodium 100 mg/ (Sodium Chloride) 100 mls @ 100 mls/hr IV Q24H [facility] Last Admin: 04/01/17 10:33 Dose: 100 mls/hr Meropenem 1 gm/ Sodium (Chloride) 100 mls @ 100 mls/hr IVPB Q8 [facility] Last Admin: 04/01/17 13:51 Dose: 100 mls/hr Losartan Potassium (Cozaar) 25 mg PO DAILY [facility] Last Admin: 04/01/17 10:33 Dose: 25 mg Metoprolol Tartrate (Lopressor) 25 mg PO BID [facility] Last Admin: 04/01/17 10:33 Dose: 25 mg Pantoprazole Sodium (Protonix Ec Tab) 40 mg PO DAILY [facility] Last Admin: 04/01/17 10:33 Dose: 40 mg Simethicone (Mylicon Chew Tab) 80 mg PO TID PRN PRN Reason: GI distress Last Admin: 03/30/17 09:36 Dose: 80 mg - Labs Labs: 03/31/17 11:13 03/31/17 11:13 PT 19.4 SECONDS (9.7-12.2) H D 03/17/17 20:14 INR 1.7 D 03/17/17 20:14 APTT 35 SECONDS (21-34) H D 03/17/17 20:14 - Constitutional Appears: Non-toxic, No Acute Distress - Head Exam Head Exam: ATRAUMATIC, NORMOCEPHALIC - Eye Exam Eye Exam: EOMI. absent: Scleral icterus - Respiratory Exam Respiratory Exam: NORMAL BREATHING PATTERN. absent: Respiratory Distress - GI/Abdominal Exam GI & Abdominal Exam: Soft. absent: Firm, Guarding, Rigid, Tenderness, Rebound Additional comments: incision with 2 open locations with granulation tissue. Dressing changes - Neurological Exam Neurological Exam: Alert, Awake, Oriented x3 - Skin Skin Exam: Dry, Warm Assessment and Plan - Assessment and Plan (Free Text) Assessment: 62M with stage IV colon cancer s/p colectomy and colostomy for obstructing mass POD#15 Plan: - IV ABX - Prostat supplement - Regular Diet - bowel regiment Colace 100 mg PO TID - arrange Home health care - AM labs, monitor leukocytosis - D/W Dr. Maryan Galvan PGY4 <Trace Steinberg - Last Filed: 04/03/17 10:35> Objective - Vital Signs/Intake and Output Vital Signs (last 24 hours): Temp Pulse Resp BP Pulse Ox 98.3 F 92 H 20 142/89 97 04/03/17 08:04 04/03/17 08:04 04/03/17 08:04 04/03/17 09:58 04/03/17 08:04 Intake and Output: 04/03/17 04/03/17 06:59 18:59 Intake Total 690 Output Total 1520 Balance -830 - Medications Medications: Current Medications Albuterol/Ipratropium (Duoneb 3 Mg/0.5 Mg (3 Ml) Ud) 3 ml INH RQ12 [facility] Last Admin: 04/03/17 07:45 Dose: 3 ml Benzocaine/Menthol (Cepacol Sore Throat) 1 michael MT Q4 PRN PRN Reason: Sore Throat Last Admin: 03/24/17 09:18 Dose: 1 michael Docusate Sodium (Colace) 100 mg PO TID [facility] Last Admin: 04/03/17 09:57 Dose: 100 mg Micafungin Sodium 100 mg/ (Sodium Chloride) 100 mls @ 100 mls/hr IV Q24H [facility] Last Admin: 04/03/17 09:57 Dose: 100 mls/hr Meropenem 1 gm/ Sodium (Chloride) 100 mls @ 100 mls/hr IVPB Q8 [facility] Last Admin: 04/03/17 05:20 Dose: 100 mls/hr Losartan Potassium (Cozaar) 25 mg PO DAILY [facility] Last Admin: 04/03/17 09:57 Dose: 25 mg Metoprolol Tartrate (Lopressor) 25 mg PO BID [facility] Last Admin: 04/03/17 09:58 Dose: 25 mg Pantoprazole Sodium (Protonix Ec Tab) 40 mg PO DAILY [facility] Last Admin: 04/03/17 09:57 Dose: 40 mg Simethicone (Mylicon Chew Tab) 80 mg PO TID PRN PRN Reason: GI distress Last Admin: 03/30/17 09:36 Dose: 80 mg - Labs Labs: 04/02/17 11:45 04/02/17 11:45 PT 19.4 SECONDS (9.7-12.2) H D 03/17/17 20:14 INR 1.7 D 03/17/17 20:14 APTT 35 SECONDS (21-34) H D 03/17/17 20:14 Attending/Attestation - Attestation I have personally seen and examined this patient.: Yes I have fully participated in the care of the patient.: Yes I have reviewed all pertinent clinical information, including history, physical exam and plan: Yes Notes (Text): Pt was seen and examined at bedside Agree with above note and assessment Pt is improving clinically Cannot get blood draw today CBC in am Local wound care DC plan early next week Plan d.w pt in detail
[2017-04-02] MEDS: Meropenem 1 GM in Sodium Chloride 0.9% 100 ML IVPB SCH ×3 (05:25→21:02)
--- NOTE | 2017-04-02 06:31 | CP.PCM.PN ---
<Ariana Heath - Last Filed: 04/02/17 06:29> Subjective - Date & Time of Evaluation Date of Evaluation: 04/02/17 Time of Evaluation: 06:10 - Subjective Subjective: General surgery progress note for Dr. Steinberg-Ariana Heath, PGY-1 Pt S & E at bedside. Pt reports continued difficulty with mobility, reports getting OOBTC and back to bed, but is not currently ambulating to bathroom. Reports minimal appetite, continued bloating, discomfort after eating. Is asking for cereal. Denies N & V , F & C, other complaints. Objective - Vital Signs/Intake and Output Vital Signs (last 24 hours): Temp Pulse Resp BP Pulse Ox 98.1 F 89 20 130/76 98 04/02/17 01:00 04/02/17 01:00 04/02/17 01:00 04/02/17 01:00 04/02/17 01:00 Intake and Output: 04/01/17 04/02/17 18:59 06:59 Intake Total 700 Output Total 550 260 Balance 150 -260 - Medications Medications: Current Medications Albuterol/Ipratropium (Duoneb 3 Mg/0.5 Mg (3 Ml) Ud) 3 ml INH RQ12 [facility] Last Admin: 04/01/17 19:39 Dose: 3 ml Benzocaine/Menthol (Cepacol Sore Throat) 1 michael MT Q4 PRN PRN Reason: Sore Throat Last Admin: 03/24/17 09:18 Dose: 1 michael Docusate Sodium (Colace) 100 mg PO TID [facility] Last Admin: 04/01/17 17:59 Dose: 100 mg Micafungin Sodium 100 mg/ (Sodium Chloride) 100 mls @ 100 mls/hr IV Q24H [facility] Last Admin: 04/01/17 10:33 Dose: 100 mls/hr Meropenem 1 gm/ Sodium (Chloride) 100 mls @ 100 mls/hr IVPB Q8 [facility] Last Admin: 04/02/17 05:25 Dose: 100 mls/hr Losartan Potassium (Cozaar) 25 mg PO DAILY [facility] Last Admin: 04/01/17 10:33 Dose: 25 mg Metoprolol Tartrate (Lopressor) 25 mg PO BID [facility] Last Admin: 04/01/17 18:00 Dose: 25 mg Pantoprazole Sodium (Protonix Ec Tab) 40 mg PO DAILY [facility] Last Admin: 04/01/17 10:33 Dose: 40 mg Simethicone (Mylicon Chew Tab) 80 mg PO TID PRN PRN Reason: GI distress Last Admin: 03/30/17 09:36 Dose: 80 mg - Labs Labs: 03/31/17 11:13 03/31/17 11:13 PT 19.4 SECONDS (9.7-12.2) H D 03/17/17 20:14 INR 1.7 D 03/17/17 20:14 APTT 35 SECONDS (21-34) H D 03/17/17 20:14 - Constitutional Appears: Non-toxic, No Acute Distress - Head Exam Head Exam: ATRAUMATIC, NORMAL INSPECTION, NORMOCEPHALIC - Eye Exam Eye Exam: EOMI, Normal appearance - ENT Exam ENT Exam: Mucous Membranes Moist, Normal Exam - Neck Exam Neck Exam: Full ROM, Normal Inspection - Respiratory Exam Respiratory Exam: NORMAL BREATHING PATTERN - Cardiovascular Exam Cardiovascular Exam: REGULAR RHYTHM, +S1, +S2 - GI/Abdominal Exam GI & Abdominal Exam: Distended, Soft. absent: Firm, Guarding, Tenderness Additional comments: ostomy bag with scant dark brown liquid output. Vin with no output- recently drained. Dressing is clean/dry/intact. - Extremities Exam Extremities Exam: Pedal Edema (bilateral) - Neurological Exam Neurological Exam: Alert, Awake, CN II-XII Intact, Oriented x3 - Psychiatric Exam Psychiatric exam: Normal Affect, Normal Mood - Skin Skin Exam: Dry, Normal Color, Warm Assessment and Plan - Assessment and Plan (Free Text) Assessment: 62M w/stage IV colon cancer POD#16 s/p colectomy and colostomy for obstructing mass Plan: Cont IV ABx Cont prostat supplement cont reg diet cont bowel regimen Arrange home health care FU AM labs- monitor leukocytosis Will DW attending Ivana, PGY-1 <Trace Steinberg B - Last Filed: 04/03/17 10:40> Objective - Vital Signs/Intake and Output Vital Signs (last 24 hours): Temp Pulse Resp BP Pulse Ox 98.3 F 92 H 20 142/89 97 04/03/17 08:04 04/03/17 08:04 04/03/17 08:04 04/03/17 09:58 02/04/18 08:04 Intake and Output: 04/03/17 04/03/17 06:59 18:59 Intake Total 690 Output Total 1520 Balance -830 - Medications Medications: Current Medications Albuterol/Ipratropium (Duoneb 3 Mg/0.5 Mg (3 Ml) Ud) 3 ml INH RQ12 [facility] Last Admin: 04/03/17 07:45 Dose: 3 ml Benzocaine/Menthol (Cepacol Sore Throat) 1 michael MT Q4 PRN PRN Reason: Sore Throat Last Admin: 03/24/17 09:18 Dose: 1 michael Docusate Sodium (Colace) 100 mg PO TID [facility] Last Admin: 04/03/17 09:57 Dose: 100 mg Micafungin Sodium 100 mg/ (Sodium Chloride) 100 mls @ 100 mls/hr IV Q24H [facility] Last Admin: 04/03/17 09:57 Dose: 100 mls/hr Meropenem 1 gm/ Sodium (Chloride) 100 mls @ 100 mls/hr IVPB Q8 [facility] Last Admin: 04/03/17 05:20 Dose: 100 mls/hr Losartan Potassium (Cozaar) 25 mg PO DAILY [facility] Last Admin: 04/03/17 09:57 Dose: 25 mg Metoprolol Tartrate (Lopressor) 25 mg PO BID [facility] Last Admin: 04/03/17 09:58 Dose: 25 mg Pantoprazole Sodium (Protonix Ec Tab) 40 mg PO DAILY [facility] Last Admin: 04/03/17 09:57 Dose: 40 mg Simethicone (Mylicon Chew Tab) 80 mg PO TID PRN PRN Reason: GI distress Last Admin: 03/30/17 09:36 Dose: 80 mg - Labs Labs: 04/02/17 11:45 04/02/17 11:45 PT 19.4 SECONDS (9.7-12.2) H D 03/17/17 20:14 INR 1.7 D 03/17/17 20:14 APTT 35 SECONDS (21-34) H D 03/17/17 20:14 Attending/Attestation - Attestation I have personally seen and examined this patient.: Yes I have fully participated in the care of the patient.: Yes I have reviewed all pertinent clinical information, including history, physical exam and plan: Yes Notes (Text): Pt was seen and examined at bedside Agree with above note and assessment Pt is doine well Tolerating diet Ileus still present WBC is trending down DC plan OOB to walk Local wound care Plan d.w pt in detail
[2017-04-02] MEDS: Albuterol-Ipratrop 3 mg / 0.5 (3 ml) UD INH SCH (07:45)
[2017-04-02] MEDS: Micafungin 100 MG in Sodium Chloride 0.9% 100 ML IV SCH (10:27)
[2017-04-02] MEDS: Pantoprazole 40 mg EC Tab PO SCH (10:28)
[2017-04-02 11:54] LABS: BASO # 0.1 K/uL (0.0-0.2); BASO % 0.9 % (0.0-2.0); EOS # 0.4 K/uL (0.0-0.7); EOS % 2.9 % (0.0-4.0); HEMOGLOBIN 8.5 g/dL (12.0-18.0); LYMPH # 1.1 K/uL (1.0-4.3); LYMPH % 7.4 % (20.0-40.0); MEAN CELL VOLUME 78.7 fL (80.0-94.0); MEAN CORPUSCULAR HEMOGLOBIN 25.6 pg (27.0-31.0); MEAN CORPUSCULAR HGB CONC 32.6 g/dL (33.0-37.0); MEAN PLATELET VOLUME 8.8 fL (7.2-11.7); MONO # 1.4 K/uL (0.0-0.8); NEUT # 12.2 K/uL (1.8-7.0); NEUT % 79.8 % (50.0-75.0); RBC 3.31 Mil/uL (4.40-5.90); RED CELL DISTRIBUTION WIDTH 20.7 % (11.5-14.5); WHITE BLOOD COUNT 15.2 K/uL (4.8-10.8)
[2017-04-02 12:06] LABS: PLATELET COUNT 338 K/uL (130-400)
[2017-04-02 12:22] LABS: ALB/GLOB RATIO 0.7 (1.0-2.1); ALBUMIN 3.1 g/dL (3.5-5.0); ALT/SGPT 30 U/L (21-72); AST/SGOT 58 U/L (17-59); BLOOD UREA NITROGEN 15 mg/dL (9-20); GFR AFRICAN-AMERICAN > 60; GFR NON-AFRICAN AMERICAN > 60; MAGNESIUM 1.6 mg/dL (1.6-2.3)
[2017-04-02 12:40] LABS: ANISOCYTOSIS MODERATE; BANDS 5 % (0-2); BASOPHIL 1 % (0-2); EOSINOPHIL 7 % (0-4); LYMPHOCYTE 9 % (20-40); MONOCYTE 8 % (0-10); NEUTROPHIL 70 % (50-75); PLATELET ESTIMATE NORMAL (NORMAL); TOTAL CELLS COUNTED 100
[2017-04-02 12:41] LABS: HYPOCHROMIC SLIGHT; LARGE PLATELETS PRESENT; MICROCYTOSIS SLIGHT; OVALOCYTES SLIGHT; POLYCHROMIC SLIGHT; TARGET CELLS SLIGHT
--- NOTE | 2017-04-02 12:42 | CP.PCM.PN ---
<Clare River - Last Filed: 04/02/17 12:37> Subjective - Date & Time of Evaluation Date of Evaluation: 04/02/17 Time of Evaluation: 07:00 - Subjective Subjective: Patient seen and examined at bedside. Per nursing no acute events occurred overnight. Patient was sittin gin the chair and states that he still feels bloated but his abdomen feels better today than yesterday. He is tolerating diet. Patient still does not want to go to rehab but expresses interest in going home soon. The patient denies any chest pain, syncopal episodes, fevers, chills, nausea, vomiting, changes in vision, or any other complaints. Objective - Vital Signs/Intake and Output Vital Signs (last 24 hours): Temp Pulse Resp BP Pulse Ox 98.1 F 110 H 20 141/83 98 04/02/17 08:40 04/02/17 08:40 04/02/17 08:40 04/02/17 10:28 04/02/17 08:40 Intake and Output: 04/02/17 04/02/17 06:59 18:59 Intake Total 400 Output Total 920 Balance -520 - Medications Medications: Current Medications Albuterol/Ipratropium (Duoneb 3 Mg/0.5 Mg (3 Ml) Ud) 3 ml INH RQ12 [facility] Last Admin: 04/02/17 07:45 Dose: 3 ml Benzocaine/Menthol (Cepacol Sore Throat) 1 michael MT Q4 PRN PRN Reason: Sore Throat Last Admin: 03/24/17 09:18 Dose: 1 michael Docusate Sodium (Colace) 100 mg PO TID [facility] Last Admin: 04/02/17 10:28 Dose: 100 mg Micafungin Sodium 100 mg/ (Sodium Chloride) 100 mls @ 100 mls/hr IV Q24H [facility] Last Admin: 04/02/17 10:27 Dose: 100 mls/hr Meropenem 1 gm/ Sodium (Chloride) 100 mls @ 100 mls/hr IVPB Q8 [facility] Last Admin: 04/02/17 05:25 Dose: 100 mls/hr Magnesium Sulfate/Dextrose (Magnesium Sulfate 1 Gm/100 Ml D5w) 1 gm in 100 mls @ 100 mls/hr IVPB Q1H [facility] Stop: 04/02/17 13:59 Losartan Potassium (Cozaar) 25 mg PO DAILY [facility] Last Admin: 04/02/17 10:28 Dose: 25 mg Metoprolol Tartrate (Lopressor) 25 mg PO BID [facility] Last Admin: 04/02/17 10:28 Dose: 25 mg Pantoprazole Sodium (Protonix Ec Tab) 40 mg PO DAILY [facility] Last Admin: 04/02/17 10:28 Dose: 40 mg Potassium Chloride (K-Dur 20 Meq Er Tab) 40 meq PO Q2 [facility] Stop: 04/02/17 16:01 Simethicone (Mylicon Chew Tab) 80 mg PO TID PRN PRN Reason: GI distress Last Admin: 03/30/17 09:36 Dose: 80 mg - Labs Labs: 04/02/17 11:45 04/02/17 11:45 PT 19.4 SECONDS (9.7-12.2) H D 03/17/17 20:14 INR 1.7 D 03/17/17 20:14 APTT 35 SECONDS (21-34) H D 03/17/17 20:14 - Constitutional Appears: Non-toxic, No Acute Distress - Head Exam Head Exam: ATRAUMATIC, NORMAL INSPECTION - Eye Exam Eye Exam: EOMI - ENT Exam ENT Exam: Mucous Membranes Moist - Respiratory Exam Respiratory Exam: Clear to Ausculation Bilateral, NORMAL BREATHING PATTERN. absent: Respiratory Distress - Cardiovascular Exam Cardiovascular Exam: REGULAR RHYTHM, +S1, +S2 - GI/Abdominal Exam GI & Abdominal Exam: Distended, Soft, Normal Bowel Sounds. absent: Firm, Guarding, Tenderness Additional comments: colostomy in place drain in place - Extremities Exam Extremities Exam: Normal Inspection - Neurological Exam Neurological Exam: Alert, Awake, CN II-XII Intact, Normal Gait, Oriented x3 Neuro motor strength exam: Left Upper Extremity: 5, Right Upper Extremity: 5, Left Lower Extremity: 5, Right Lower Extremity: 5 - Psychiatric Exam Psychiatric exam: Normal Affect, Normal Mood - Skin Skin Exam: Normal Color, Warm Assessment and Plan - Assessment and Plan (Free Text) Assessment: This is a 62 year old male who came to the hospital on 03/15 with abdominal pain , weight loss, no BMs, and also dark emesis. He was determined to have a a 4.6 x 5 x 7 cm mass that was causing obstruction. This same imaging also suggested a metastatic spread of a cancer to lungs and liver as well. He then underwent a flexible sigmoidscopy on 03/16 and the biopsy showed adenocarcinoma. He underwent an exploratory laparotomy and left hemicolectomy and creation of a colostomy. Patient and family are aware of the adenocarcinoma. 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 04/02: Now on regular diet and is tolerating 03/30: Continue liquid diet as tolerated. 03/27: He kept repeatedly asking for food. He did have 1400mL out from colostomy yesterday Will try a liquid diet for now. I cautioned him to eat slowly and he should stop if he cannot tolerate. Consider a repeat CT if needed 03/26: Now POD 13, abdomen is distended. He does not want an NGT for potential suctioning. Continue to monitor 03/25: Patient is now very awake and alert. 03/24: Now POD 10, the tissue from 03/17 has returned showing adenocarcinoma 03/21: Now with colostomy. He is S/P POD 7 of exploratory laparotmy with left hemicolectomy and colostomy. He had takedown of splenic flexure, lysis of adhesions, omentectomy. biopsy. GI consult DR Esparza s/p sigmoidoscopy and biopsy follow biopsy report Patient remains extubated follow up heel attacher recommendation Hypokalemia 40 meq PO KCl x 2 doses Hypomagnesia Mg 1.6 Mg IVPB 1 gram x 1 dose Depression Patient reports feeling sad in regards to his prognosis. Patient denies any SI, HI, AH,VH on exam today. Re-consulted Psychiatry for examination. Will f/u with recs. Ventilator dependent respiratory failure 03/30:Continue nasal cannula. Duonebs Started. Will continue to monitor. 03/26: He is currently on nasal cannula doing ok. Continue follow RISHI 03/24: Now extubated, did ok overnight the tube feeds had to be held temporarily and now is restarted 03/23: Remains on CPAPA/PS settings, still has elevated WBC. is aware of poor prognosis 03/22: He tolerated being on CPAP/pressure support settings without incidence overnight hopefully at some point to be extubated 03/21: At this moment is on CPAP/PS settings Bilateral lobe pneumonia WBC starting to decrease will continue abx therapy 03/31: WBC 18.1 Today. Continue Vancomycin, Micafungin, Flagyl and Meopenem 03/26: Ordered additional blood cultures. Also procalcitonin. 03/24: Now extubated, remains on IV abx. WBC is 26, high procalcitonin. The blood pressures are stable for now. 03/23: Again high WBC, on Azithromycin, Cefepime, Flagyl. Blood and trach cultures negative 03/22: WBC count remains elevated with bandemia. Continue with IV abx. 03/21: As mentioned above, continue with ventilation, follow CXRAYs, IV abx The cultures remain negative at this moment Acute Kidney Injury 03/29: Creatinine .9. Resolved .Will continue to monitor. 03/27: Renal function is now stable. 1400 mL recorded yesterday 03/22: Creatine decreased to 1.2, urine out put 3,500 Anemia monitor hemoglobin, 8.5, stable type and screen and follow hemoglobin DVT prophylaxis-SCDs GI prophylaxis-Protonix SCDS Regular diet <Hernan Duque - Last Filed: 04/03/17 19:13> Objective - Vital Signs/Intake and Output Vital Signs (last 24 hours): Temp Pulse Resp BP Pulse Ox 98.5 F 97 H 20 144/94 H 100 04/03/17 14:00 04/03/17 14:00 04/03/17 14:00 04/03/17 17:38 04/03/17 14:00 - Medications Medications: Current Medications Albuterol/Ipratropium (Duoneb 3 Mg/0.5 Mg (3 Ml) Ud) 3 ml INH RQ12 [facility] Last Admin: 04/03/17 07:45 Dose: 3 ml Benzocaine/Menthol (Cepacol Sore Throat) 1 michael MT Q4 PRN PRN Reason: Sore Throat Last Admin: 03/24/17 09:18 Dose: 1 michael Docusate Sodium (Colace) 100 mg PO TID [facility] Last Admin: 04/03/17 17:38 Dose: 100 mg Micafungin Sodium 100 mg/ (Sodium Chloride) 100 mls @ 100 mls/hr IV Q24H [facility] Last Admin: 04/03/17 09:57 Dose: 100 mls/hr Meropenem 1 gm/ Sodium (Chloride) 100 mls @ 100 mls/hr IVPB Q8 [facility] Last Admin: 04/03/17 15:15 Dose: 100 mls/hr Losartan Potassium (Cozaar) 25 mg PO DAILY [facility] Last Admin: 04/03/17 09:57 Dose: 25 mg Metoprolol Tartrate (Lopressor) 25 mg PO BID [facility] Last Admin: 04/03/17 17:38 Dose: 25 mg Pantoprazole Sodium (Protonix Ec Tab) 40 mg PO DAILY [facility] Last Admin: 04/03/17 09:57 Dose: 40 mg Simethicone (Mylicon Chew Tab) 80 mg PO TID PRN PRN Reason: GI distress Last Admin: 03/30/17 09:36 Dose: 80 mg - Labs Labs: 04/03/17 11:38 04/03/17 11:38 PT 19.4 SECONDS (9.7-12.2) H D 03/17/17 20:14 INR 1.7 D 03/17/17 20:14 APTT 35 SECONDS (21-34) H D 03/17/17 20:14 Attending/Attestation - Attestation I have personally seen and examined this patient.: Yes I have fully participated in the care of the patient.: Yes I have reviewed all pertinent clinical information, including history, physical exam and plan: Yes Notes (Text): Seen and examined,no complain,feels better continue antibiotics and antifungal as per ID d/w The resident
[2017-04-02] MEDS ORDERED: Magnesium Sulfate 1 gm in D5W 1 GM/100 ML BAG IVPB SCH (13:00)
[2017-04-02] MEDS: Potassium Chloride 20 mEq ER Tab PO SCH ×2 (13:21→17:41)
[2017-04-03] MEDS: Meropenem 1 GM in Sodium Chloride 0.9% 100 ML IVPB SCH ×3 (05:20→22:00)
[2017-04-03] MEDS: Albuterol-Ipratrop 3 mg / 0.5 (3 ml) UD INH SCH ×2 (07:45→20:07)
[2017-04-03] MEDS ORDERED: Potassium Chloride 20 mEq ER Tab PO STA (07:58)
--- NOTE | 2017-04-03 08:05 | CP.PCM.PN ---
Subjective - Date & Time of Evaluation Date of Evaluation: 04/03/17 Time of Evaluation: 07:00 - Subjective Subjective: Patient seen and examined at bedside. Per nursing no acute events occurred overnight. Patient was sitting in the chair and states that he still feels bloated but his abdomen feels better today than yesterday. He is tolerating diet. Patient still does not want to go to rehab but expresses interest in going home soon. The patient denies any chest pain, syncopal episodes, fevers, chills, nausea, vomiting, changes in vision, or any other complaints. Objective - Vital Signs/Intake and Output Vital Signs (last 24 hours): Temp Pulse Resp BP Pulse Ox 98.5 F 100 H 20 125/80 99 04/03/17 00:00 04/03/17 00:00 04/03/17 00:00 04/03/17 00:00 04/03/17 00:00 Intake and Output: 04/03/17 04/03/17 06:59 18:59 Intake Total 690 Output Total 1520 Balance -830 - Medications Medications: Current Medications Albuterol/Ipratropium (Duoneb 3 Mg/0.5 Mg (3 Ml) Ud) 3 ml INH RQ12 [facility] Last Admin: 04/02/17 07:45 Dose: 3 ml Benzocaine/Menthol (Cepacol Sore Throat) 1 michael MT Q4 PRN PRN Reason: Sore Throat Last Admin: 03/24/17 09:18 Dose: 1 michael Docusate Sodium (Colace) 100 mg PO TID [facility] Last Admin: 04/02/17 17:28 Dose: Not Given Micafungin Sodium 100 mg/ (Sodium Chloride) 100 mls @ 100 mls/hr IV Q24H [facility] Last Admin: 04/02/17 10:27 Dose: 100 mls/hr Meropenem 1 gm/ Sodium (Chloride) 100 mls @ 100 mls/hr IVPB Q8 [facility] Last Admin: 04/03/17 05:20 Dose: 100 mls/hr Losartan Potassium (Cozaar) 25 mg PO DAILY [facility] Last Admin: 04/02/17 10:28 Dose: 25 mg Metoprolol Tartrate (Lopressor) 25 mg PO BID [facility] Last Admin: 04/02/17 17:28 Dose: 25 mg Pantoprazole Sodium (Protonix Ec Tab) 40 mg PO DAILY [facility] Last Admin: 04/02/17 10:28 Dose: 40 mg Simethicone (Mylicon Chew Tab) 80 mg PO TID PRN PRN Reason: GI distress Last Admin: 03/30/17 09:36 Dose: 80 mg - Labs Labs: 04/02/17 11:45 04/02/17 11:45 PT 19.4 SECONDS (9.7-12.2) H D 03/17/17 20:14 INR 1.7 D 03/17/17 20:14 APTT 35 SECONDS (21-34) H D 03/17/17 20:14
--- NOTE | 2017-04-03 08:12 | CP.PCM.PN ---
<PericoClare - Last Filed: 04/03/17 08:09> Subjective - Date & Time of Evaluation Date of Evaluation: 04/03/17 Time of Evaluation: 07:00 - Subjective Subjective: Patient seen and examined at bedside. Per nursing no acute events occurred overnight. Patient was sitting in the chair and states that he still feels bloated but his abdomen feels better today than yesterday. He is tolerating diet. Patient would like to go home soon. He was asking if he could skip blood work today because he is a hard stick. He said he will let them try once. The patient denies any chest pain, syncopal episodes, fevers, chills, nausea, vomiting, changes in vision, or any other complaints. Objective - Vital Signs/Intake and Output Vital Signs (last 24 hours): Temp Pulse Resp BP Pulse Ox 98.3 F 92 H 20 142/89 97 04/03/17 08:04 04/03/17 08:04 04/03/17 08:04 04/03/17 08:04 04/03/17 08:04 Intake and Output: 04/03/17 04/03/17 06:59 18:59 Intake Total 690 Output Total 1520 Balance -830 - Medications Medications: Current Medications Albuterol/Ipratropium (Duoneb 3 Mg/0.5 Mg (3 Ml) Ud) 3 ml INH RQ12 [facility] Last Admin: 04/02/17 07:45 Dose: 3 ml Benzocaine/Menthol (Cepacol Sore Throat) 1 michael MT Q4 PRN PRN Reason: Sore Throat Last Admin: 03/24/17 09:18 Dose: 1 michael Docusate Sodium (Colace) 100 mg PO TID [facility] Last Admin: 04/02/17 17:28 Dose: Not Given Micafungin Sodium 100 mg/ (Sodium Chloride) 100 mls @ 100 mls/hr IV Q24H [facility] Last Admin: 04/02/17 10:27 Dose: 100 mls/hr Meropenem 1 gm/ Sodium (Chloride) 100 mls @ 100 mls/hr IVPB Q8 [facility] Last Admin: 04/03/17 05:20 Dose: 100 mls/hr Losartan Potassium (Cozaar) 25 mg PO DAILY [facility] Last Admin: 04/02/17 10:28 Dose: 25 mg Metoprolol Tartrate (Lopressor) 25 mg PO BID [facility] Last Admin: 04/02/17 17:28 Dose: 25 mg Pantoprazole Sodium (Protonix Ec Tab) 40 mg PO DAILY [facility] Last Admin: 04/02/17 10:28 Dose: 40 mg Simethicone (Mylicon Chew Tab) 80 mg PO TID PRN PRN Reason: GI distress Last Admin: 03/30/17 09:36 Dose: 80 mg - Labs Labs: 04/02/17 11:45 04/02/17 11:45 PT 19.4 SECONDS (9.7-12.2) H D 03/17/17 20:14 INR 1.7 D 03/17/17 20:14 APTT 35 SECONDS (21-34) H D 03/17/17 20:14 - Constitutional Appears: Non-toxic, No Acute Distress - Head Exam Head Exam: ATRAUMATIC, NORMAL INSPECTION - Eye Exam Eye Exam: EOMI Pupil Exam: NORMAL ACCOMODATION - ENT Exam ENT Exam: Mucous Membranes Moist - Respiratory Exam Respiratory Exam: Clear to Ausculation Bilateral, NORMAL BREATHING PATTERN. absent: Respiratory Distress - Cardiovascular Exam Cardiovascular Exam: REGULAR RHYTHM, +S1, +S2 - GI/Abdominal Exam GI & Abdominal Exam: Distended, Soft, Normal Bowel Sounds. absent: Firm, Guarding, Tenderness Additional comments: Noemy in place midline suture, drain in place, colostomy bag in place and draining - Extremities Exam Extremities Exam: Normal Inspection - Back Exam Back Exam: NORMAL INSPECTION - Neurological Exam Neurological Exam: Alert, Awake, CN II-XII Intact, Oriented x3 Neuro motor strength exam: Left Upper Extremity: 5, Right Upper Extremity: 5, Left Lower Extremity: 5, Right Lower Extremity: 5 - Psychiatric Exam Psychiatric exam: Normal Affect, Normal Mood - Skin Skin Exam: Normal Color, Warm Assessment and Plan - Assessment and Plan (Free Text) Assessment: This is a 62 year old male who came to the hospital on 03/15 with abdominal pain , weight loss, no BMs, and also dark emesis. He was determined to have a a 4.6 x 5 x 7 cm mass that was causing obstruction. This same imaging also suggested a metastatic spread of a cancer to lungs and liver as well. He then underwent a flexible sigmoidscopy on 03/16 and the biopsy showed adenocarcinoma. He underwent an exploratory laparotomy and left hemicolectomy and creation of a colostomy. Patient and family are aware of the adenocarcinoma. 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 04/02: Now on regular diet and is tolerating 03/30: Continue liquid diet as tolerated. 03/27: He kept repeatedly asking for food. He did have 1400mL out from colostomy yesterday Will try a liquid diet for now. I cautioned him to eat slowly and he should stop if he cannot tolerate. Consider a repeat CT if needed 03/26: Now POD 13, abdomen is distended. He does not want an NGT for potential suctioning. Continue to monitor 03/25: Patient is now very awake and alert. 03/24: Now POD 10, the tissue from 03/17 has returned showing adenocarcinoma 03/21: Now with colostomy. He is S/P POD 7 of exploratory laparotmy with left hemicolectomy and colostomy. He had takedown of splenic flexure, lysis of adhesions, omentectomy. biopsy. 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 Patient denies any SI, HI, AH,VH on exam today. Re-consulted Psychiatry for examination. Will f/u with recs. Ventilator dependent respiratory failure 03/30:Continue nasal cannula. Duonebs Started. Will continue to monitor. 03/26: He is currently on nasal cannula doing ok. Continue follow RISHI 03/24: Now extubated, did ok overnight the tube feeds had to be held temporarily and now is restarted 03/23: Remains on CPAPA/PS settings, still has elevated WBC. is aware of poor prognosis 03/22: He tolerated being on CPAP/pressure support settings without incidence overnight hopefully at some point to be extubated 03/21: At this moment is on CPAP/PS settings Bilateral lobe pneumonia WBC starting to decrease will continue abx therapy 03/31: WBC 18.1 Today. Continue Vancomycin, Micafungin, Flagyl and Meopenem 03/26: Ordered additional blood cultures. Also procalcitonin. 03/24: Now extubated, remains on IV abx. WBC is 26, high procalcitonin. The blood pressures are stable for now. 03/23: Again high WBC, on Azithromycin, Cefepime, Flagyl. Blood and trach cultures negative 03/22: WBC count remains elevated with bandemia. Continue with IV abx. 03/21: As mentioned above, continue with ventilation, follow CXRAYs, IV abx The cultures remain negative at this moment Acute Kidney Injury 03/29: Creatinine .9. Resolved .Will continue to monitor. 03/27: Renal function is now stable. 1400 mL recorded yesterday 03/22: Creatine decreased to 1.2, urine out put 3,500 Anemia monitor hemoglobin, 8.5, stable type and screen and follow hemoglobin DVT prophylaxis-SCDs GI prophylaxis-Protonix SCDS Regular diet Dispo -> possible DC Tuesday, pending white count and surgery clearance. Patient is refusing rehab placement. <Hernan Duque - Last Filed: 04/03/17 19:14> Objective - Vital Signs/Intake and Output Vital Signs (last 24 hours): Temp Pulse Resp BP Pulse Ox 98.5 F 97 H 20 144/94 H 100 04/03/17 14:00 04/03/17 14:00 04/03/17 14:00 04/03/17 17:38 04/03/17 14:00 - Medications Medications: Current Medications Albuterol/Ipratropium (Duoneb 3 Mg/0.5 Mg (3 Ml) Ud) 3 ml INH RQ12 [facility] Last Admin: 04/03/17 07:45 Dose: 3 ml Benzocaine/Menthol (Cepacol Sore Throat) 1 michael MT Q4 PRN PRN Reason: Sore Throat Last Admin: 03/24/17 09:18 Dose: 1 michael Docusate Sodium (Colace) 100 mg PO TID [facility] Last Admin: 04/03/17 17:38 Dose: 100 mg Micafungin Sodium 100 mg/ (Sodium Chloride) 100 mls @ 100 mls/hr IV Q24H [facility] Last Admin: 04/03/17 09:57 Dose: 100 mls/hr Meropenem 1 gm/ Sodium (Chloride) 100 mls @ 100 mls/hr IVPB Q8 [facility] Last Admin: 04/03/17 15:15 Dose: 100 mls/hr Losartan Potassium (Cozaar) 25 mg PO DAILY [facility] Last Admin: 04/03/17 09:57 Dose: 25 mg Metoprolol Tartrate (Lopressor) 25 mg PO BID [facility] Last Admin: 04/03/17 17:38 Dose: 25 mg Pantoprazole Sodium (Protonix Ec Tab) 40 mg PO DAILY [facility] Last Admin: 04/03/17 09:57 Dose: 40 mg Simethicone (Mylicon Chew Tab) 80 mg PO TID PRN PRN Reason: GI distress Last Admin: 03/30/17 09:36 Dose: 80 mg - Labs Labs: 04/03/17 11:38 04/03/17 11:38 PT 19.4 SECONDS (9.7-12.2) H D 03/17/17 20:14 INR 1.7 D 03/17/17 20:14 APTT 35 SECONDS (21-34) H D 03/17/17 20:14 Attending/Attestation - Attestation I have personally seen and examined this patient.: Yes I have fully participated in the care of the patient.: Yes I have reviewed all pertinent clinical information, including history, physical exam and plan: Yes Notes (Text): Seen and examined,tolerating diet No complain,doesn't want to go to rehab, continue antibiotics and antifungal and follow ID [id number] is coming down 04/03/17 19:13
--- NOTE | 2017-04-03 08:39 | CP.PCM.PN ---
<Fanny Reece - Last Filed: 04/03/17 08:36> Subjective - Date & Time of Evaluation Date of Evaluation: 04/03/17 Time of Evaluation: 07:35 - Subjective Subjective: General Surgery Dr. Steinberg Pt S&E @bedside. NAEO. pt sleeping comfortably. no complaints. tolerating diet. Objective - Vital Signs/Intake and Output Vital Signs (last 24 hours): Temp Pulse Resp BP Pulse Ox 98.3 F 92 H 20 142/89 97 04/03/17 08:04 04/03/17 08:04 04/03/17 08:04 04/03/17 08:04 04/03/17 08:04 Intake and Output: 04/03/17 04/03/17 06:59 18:59 Intake Total 690 Output Total 1520 Balance -830 - Medications Medications: Current Medications Albuterol/Ipratropium (Duoneb 3 Mg/0.5 Mg (3 Ml) Ud) 3 ml INH RQ12 [facility] Last Admin: 04/02/17 07:45 Dose: 3 ml Benzocaine/Menthol (Cepacol Sore Throat) 1 michael MT Q4 PRN PRN Reason: Sore Throat Last Admin: 03/24/17 09:18 Dose: 1 michael Docusate Sodium (Colace) 100 mg PO TID [facility] Last Admin: 04/02/17 17:28 Dose: Not Given Micafungin Sodium 100 mg/ (Sodium Chloride) 100 mls @ 100 mls/hr IV Q24H [facility] Last Admin: 04/02/17 10:27 Dose: 100 mls/hr Meropenem 1 gm/ Sodium (Chloride) 100 mls @ 100 mls/hr IVPB Q8 [facility] Last Admin: 04/03/17 05:20 Dose: 100 mls/hr Losartan Potassium (Cozaar) 25 mg PO DAILY [facility] Last Admin: 04/02/17 10:28 Dose: 25 mg Metoprolol Tartrate (Lopressor) 25 mg PO BID [facility] Last Admin: 04/02/17 17:28 Dose: 25 mg Pantoprazole Sodium (Protonix Ec Tab) 40 mg PO DAILY [facility] Last Admin: 04/02/17 10:28 Dose: 40 mg Simethicone (Mylicon Chew Tab) 80 mg PO TID PRN PRN Reason: GI distress Last Admin: 03/30/17 09:36 Dose: 80 mg - Labs Labs: 04/02/17 11:45 04/02/17 11:45 PT 19.4 SECONDS (9.7-12.2) H D 03/17/17 20:14 INR 1.7 D 03/17/17 20:14 APTT 35 SECONDS (21-34) H D 03/17/17 20:14 - Constitutional Appears: Non-toxic, No Acute Distress - Head Exam Head Exam: NORMAL INSPECTION - Eye Exam Eye Exam: Normal appearance - ENT Exam ENT Exam: Mucous Membranes Moist - Respiratory Exam Respiratory Exam: NORMAL BREATHING PATTERN. absent: Accessory Muscle Use, Respiratory Distress - Extremities Exam Extremities Exam: Normal Inspection - Skin Skin Exam: Normal Color Assessment and Plan - Assessment and Plan (Free Text) Assessment: 62 y/o M w/stage IV colon cancer POD#17 s/p colectomy w/ end colostomy for obstructing mass - encourage OOB to chair/Amb/IS use - encourage PO intake - Cont prostat supplement - Cont IV ABx for continued leukocytosis - Arrange home health care - GI/DVT PPx Pt discussed w/ Dr. Maryan Reece DO PGY2 <Trace Steinberg - Last Filed: 04/03/17 15:52> Objective - Vital Signs/Intake and Output Vital Signs (last 24 hours): Temp Pulse Resp BP Pulse Ox 98.3 F 92 H 20 142/89 97 04/03/17 08:04 04/03/17 08:04 04/03/17 08:04 04/03/17 09:58 04/03/17 08:04 Intake and Output: 04/03/17 04/03/17 06:59 18:59 Intake Total 690 Output Total 1520 Balance -830 - Medications Medications: Current Medications Albuterol/Ipratropium (Duoneb 3 Mg/0.5 Mg (3 Ml) Ud) 3 ml INH RQ12 [facility] Last Admin: 04/03/17 07:45 Dose: 3 ml Benzocaine/Menthol (Cepacol Sore Throat) 1 michael MT Q4 PRN PRN Reason: Sore Throat Last Admin: 03/24/17 09:18 Dose: 1 michael Docusate Sodium (Colace) 100 mg PO TID [facility] Last Admin: 04/03/17 15:15 Dose: 100 mg Micafungin Sodium 100 mg/ (Sodium Chloride) 100 mls @ 100 mls/hr IV Q24H [facility] Last Admin: 04/03/17 09:57 Dose: 100 mls/hr Meropenem 1 gm/ Sodium (Chloride) 100 mls @ 100 mls/hr IVPB Q8 [facility] Last Admin: 04/03/17 15:15 Dose: 100 mls/hr Losartan Potassium (Cozaar) 25 mg PO DAILY [facility] Last Admin: 04/03/17 09:57 Dose: 25 mg Metoprolol Tartrate (Lopressor) 25 mg PO BID [facility] Last Admin: 04/03/17 09:58 Dose: 25 mg Pantoprazole Sodium (Protonix Ec Tab) 40 mg PO DAILY [facility] Last Admin: 04/03/17 09:57 Dose: 40 mg Simethicone (Mylicon Chew Tab) 80 mg PO TID PRN PRN Reason: GI distress Last Admin: 03/30/17 09:36 Dose: 80 mg - Labs Labs: 04/03/17 11:38 04/03/17 11:38 PT 19.4 SECONDS (9.7-12.2) H D 03/17/17 20:14 INR 1.7 D 03/17/17 20:14 APTT 35 SECONDS (21-34) H D 03/17/17 20:14 Attending/Attestation - Attestation I have personally seen and examined this patient.: Yes I have fully participated in the care of the patient.: Yes I have reviewed all pertinent clinical information, including history, physical exam and plan: Yes Notes (Text): Pt was seen and examined at bedside Agree with above note and assessment Pt is improving clinically WBC is trending down DC plan local wound care Plan d.w pt in detail.
[2017-04-03] MEDS: Micafungin 100 MG in Sodium Chloride 0.9% 100 ML IV SCH (09:57)
[2017-04-03] MEDS: Pantoprazole 40 mg EC Tab PO SCH (09:57)
[2017-04-03 11:58] LABS: BASO # 0.1 K/uL (0.0-0.2); BASO % 0.6 % (0.0-2.0); EOS # 0.6 K/uL (0.0-0.7); EOS % 4.3 % (0.0-4.0); HEMOGLOBIN 8.3 g/dL (12.0-18.0); LYMPH # 1.1 K/uL (1.0-4.3); LYMPH % 7.4 % (20.0-40.0); MEAN CELL VOLUME 78.5 fL (80.0-94.0); MEAN CORPUSCULAR HEMOGLOBIN 24.9 pg (27.0-31.0); MEAN CORPUSCULAR HGB CONC 31.7 g/dL (33.0-37.0); MEAN PLATELET VOLUME 8.7 fL (7.2-11.7); MONO # 1.7 K/uL (0.0-0.8); MONO % 11.3 % (0.0-10.0); NEUT # 11.5 K/uL (1.8-7.0); NEUT % 76.4 % (50.0-75.0); RBC 3.33 Mil/uL (4.40-5.90)
[2017-04-03 11:59] LABS: PLATELET COUNT 228 K/uL (130-400)
[2017-04-03 12:12] LABS: ALB/GLOB RATIO 0.7 (1.0-2.1); ALBUMIN 2.9 g/dL (3.5-5.0); ALT/SGPT 31 U/L (21-72); AST/SGOT 57 U/L (17-59); BLOOD UREA NITROGEN 15 mg/dL (9-20); CALCIUM 7.9 mg/dl (8.6-10.4); GFR AFRICAN-AMERICAN > 60; GFR NON-AFRICAN AMERICAN > 60; MAGNESIUM 1.5 mg/dL (1.6-2.3)
[2017-04-03 12:24] LABS: BANDS 6 % (0-2); NEUTROPHIL 71 % (50-75); TOTAL CELLS COUNTED 100
[2017-04-03 12:25] LABS: ANISOCYTOSIS MODERATE; EOSINOPHIL 4 % (0-4); HYPOCHROMIC SLIGHT; LYMPHOCYTE 8 % (20-40); MICROCYTOSIS SLIGHT; MONOCYTE 11 % (0-10); PLATELET ESTIMATE NORMAL (NORMAL)
[2017-04-03 12:26] LABS: LARGE PLATELETS PRESENT; OVALOCYTES SLIGHT; TARGET CELLS SLIGHT; TEARDROP CELLS SLIGHT
[2017-04-04] MEDS: Meropenem 1 GM in Sodium Chloride 0.9% 100 ML IVPB SCH ×3 (05:12→22:00)
[2017-04-04 07:43] LABS: ALB/GLOB RATIO 0.8 (1.0-2.1); ALBUMIN 2.8 g/dL (3.5-5.0); ALT/SGPT 31 U/L (21-72); AST/SGOT 64 U/L (17-59); BLOOD UREA NITROGEN 14 mg/dL (9-20); CALCIUM 7.9 mg/dl (8.6-10.4); GFR AFRICAN-AMERICAN > 60; GFR NON-AFRICAN AMERICAN > 60; MAGNESIUM 1.5 mg/dL (1.6-2.3)
[2017-04-04 08:24] LABS: BASO # 0.1 K/uL (0.0-0.2); EOS # 0.8 K/uL (0.0-0.7); EOS % 6.3 % (0.0-4.0); HEMOGLOBIN 7.7 g/dL (12.0-18.0); LYMPH # 1.5 K/uL (1.0-4.3); MEAN CELL VOLUME 77.7 fL (80.0-94.0); MEAN CORPUSCULAR HEMOGLOBIN 25.6 pg (27.0-31.0); MEAN CORPUSCULAR HGB CONC 32.9 g/dL (33.0-37.0); MEAN PLATELET VOLUME 8.1 fL (7.2-11.7); MONO # 1.5 K/uL (0.0-0.8); MONO % 10.9 % (0.0-10.0); NEUT # 9.5 K/uL (1.8-7.0); NEUT % 70.8 % (50.0-75.0); RBC 3.01 Mil/uL (4.40-5.90); RED CELL DISTRIBUTION WIDTH 20.4 % (11.5-14.5); WHITE BLOOD COUNT 13.5 K/uL (4.8-10.8)
--- NOTE | 2017-04-04 09:14 | CP.PCM.PN ---
Subjective - Date & Time of Evaluation Date of Evaluation: 04/04/17 Time of Evaluation: 06:35 - Subjective Subjective: General Surgery- Dr. Steinberg Patient seen and examined at bedside this AM. no acute events overnight. nursing notes reviewed. Tolerating diet. Objective - Vital Signs/Intake and Output Vital Signs (last 24 hours): Temp Pulse Resp BP Pulse Ox 98.0 F 97 H 20 135/90 98 04/04/17 08:00 04/04/17 08:00 04/04/17 08:00 04/04/17 08:00 04/04/17 08:00 Intake and Output: 04/04/17 04/04/17 06:59 18:59 Intake Total 750 Output Total 495 Balance 255 - Medications Medications: Current Medications Benzocaine/Menthol (Cepacol Sore Throat) 1 michael MT Q4 PRN PRN Reason: Sore Throat Last Admin: 03/24/17 09:18 Dose: 1 michael Docusate Sodium (Colace) 100 mg PO TID [facility] Last Admin: 04/03/17 17:38 Dose: 100 mg Micafungin Sodium 100 mg/ (Sodium Chloride) 100 mls @ 100 mls/hr IV Q24H [facility] Last Admin: 04/03/17 09:57 Dose: 100 mls/hr Meropenem 1 gm/ Sodium (Chloride) 100 mls @ 100 mls/hr IVPB Q8 [facility] Last Admin: 04/04/17 05:12 Dose: 100 mls/hr Losartan Potassium (Cozaar) 25 mg PO DAILY [facility] Last Admin: 04/03/17 09:57 Dose: 25 mg Metoprolol Tartrate (Lopressor) 25 mg PO BID [facility] Last Admin: 04/03/17 17:38 Dose: 25 mg Pantoprazole Sodium (Protonix Ec Tab) 40 mg PO DAILY [facility] Last Admin: 04/03/17 09:57 Dose: 40 mg Simethicone (Mylicon Chew Tab) 80 mg PO TID PRN PRN Reason: GI distress Last Admin: 03/30/17 09:36 Dose: 80 mg - Labs Labs: 04/04/17 06:54 04/04/17 06:54 PT 19.4 SECONDS (9.7-12.2) H D 03/17/17 20:14 INR 1.7 D 03/17/17 20:14 APTT 35 SECONDS (21-34) H D 03/17/17 20:14 - Constitutional Appears: Non-toxic, No Acute Distress - Head Exam Head Exam: ATRAUMATIC - Eye Exam Eye Exam: EOMI. absent: Scleral icterus - ENT Exam ENT Exam: Mucous Membranes Moist - Respiratory Exam Respiratory Exam: NORMAL BREATHING PATTERN. absent: Accessory Muscle Use, Respiratory Distress - Cardiovascular Exam Cardiovascular Exam: +S1, +S2. absent: Bradycardia, Tachycardia - GI/Abdominal Exam GI & Abdominal Exam: Soft. absent: Distended, Firm, Guarding, Rigid, Tenderness Additional comments: Vin drain, minimal serous output midline incision clean, intact. 2 areas open, no active drainage - Neurological Exam Neurological Exam: Alert, Awake, Oriented x3 - Skin Skin Exam: Intact, Warm Assessment and Plan - Assessment and Plan (Free Text) Assessment: 62M w/stage IV colon cancer POD#18 s/p colectomy w/ end colostomy for obstructing mass s/p port placement Plan: - IV ABx for continued leukocytosis, trending down - OOB to chair/Amb/IS use - encourage PO intake - prostat supplement - GI/DVT PPx - further recs per Dr. Steinberg surgical attending Erwin Hardin PGY1
[2017-04-04] MEDS ORDERED: Bupivacaine HCl 0.5% PF (10 ml) Inj ONE (09:51)
[2017-04-04] MEDS ORDERED: Lidocaine 1% Inj (20ml) ONE (09:52)
[2017-04-04] MEDS: Micafungin 100 MG in Sodium Chloride 0.9% 100 ML IV SCH (09:52)
[2017-04-04] MEDS ORDERED: HEPARIN-NS 5,000 UNITS/500 ML 5,000 UNIT/500 ML BAG IV ONE (09:52)
[2017-04-04] MEDS: Pantoprazole 40 mg EC Tab PO SCH (09:54)
[2017-04-04] MEDS ORDERED: Midazolam 2 MG/2 ML VIAL ONE (10:55)
[2017-04-04] MEDS ORDERED: Propofol 10 mg/ml Inj (20 ML) ONE (10:56)
[2017-04-04] MEDS ORDERED: Clindamycin 600mg/50ml NS 600 MG/50 ML BAG IVPB ONE (11:12)
[2017-04-04] MEDS ORDERED: Magnesium Sulfate 1 gm in D5W 1 GM/100 ML BAG IVPB ONE ×2 (11:22→13:30)
--- NOTE | 2017-04-04 12:12 | PCM.SURG1 ---
Surgeon's Initial Post Op Note - Surgeon's Notes Surgeon: Duran Topete MD Customs Inspector: NONE Type of Anesthesia: IV Sedation Pre-Operative Diagnosis: Colon cancer Operative Findings: US showed patent right IJV. Post-Operative Diagnosis: Colon cancer Operation Performed: Port placement right IJV. Tip is in the SVC. Specimen/Specimens Removed: none Estimated Blood Loss: EBL {In ML}: 3 Blood Products Given: N/A Drains Used: No Drains Post-Op Condition: Fair Date of Surgery/Procedure: 04/04/17 Time of Surgery/Procedure: 12:00
--- NOTE | 2017-04-04 14:33 | RAD ---
PROCEDURE: Date of procedure: 04/04/2017 Procedure: 1. Placement of a right IJ port catheter with ultrasound and fluoroscopic guidance, CPT 67557 2. Catheter tip confirmation with spot radiograph in the superior vena cava. Medications: The patient was sedated anesthesiologist along with monitoring, Clindamycin 300 mg, 10 cc Lidocaine 1% Fluoroscopic time: 7.7 seconds Radiation: 0.93 mGy Blood loss: 3 cc HISTORY: Colon cancer requiring port for chemotherapy TECHNIQUE: Following informed consent the procedure time-out, patient was placed supine on the interventional table and the right neck and chest were prepped and draped in the usual sterile fashion. Ultrasound showed a compressible right internal jugular vein. After the patient was sedated by the anesthesiologist, the skin anesthetized with 1% lidocaine with epinephrine. Under direct ultrasound guidance, the right internal jugular vein was accessed with micropuncture technique. A guidewire was then advanced under fluoroscopic guidance into the superior vena cava. An image documenting ultrasound guidance for vascular access was permanently saved. The subcutaneous tissue of patient right chest was infiltrated with 1 percent lidocaine with epinephrine. A dermatotomy was made with a 15. Scalpel. The port pocket was then created with blunt dissection using a Lamar clamp. The port pocket was flushed. A port catheter was then tunneled under the skin and out the venotomy site. The port catheter was flushed, advanced through a peel-away sheath, adjusted for length, and attached to the port. The port was placed in the port pocket and was secured with 3-0 nylon sutures. The port was flushed and locked with heparin. The port pocket was then closed with absorbable 3-0 Vicryl sutures. The port pocket and the venotomy site were reprepped with ChloraPrep. Steri-Strips were then applied to the port incision also venotomy site. A sterile dressing was then applied. Final spot radiograph showed the right IJ port catheter with tip of the port catheter in the superior vena cava. A port is functional and ready for use. IMPRESSION: Placement of right IJ port catheter. The tip of the port is in the superior vena cava.
--- NOTE | 2017-04-04 14:34 | CP.PCM.PN ---
<NicoLjn - Last Filed: 04/04/17 17:23> Subjective - Date & Time of Evaluation Date of Evaluation: 04/04/17 Time of Evaluation: 07:34 - Subjective Subjective: Patient seen and examined at bedside. Per nursing no acute events occurred overnight. Patient was sitting in the chair and states that he feels gassy today but his belly feels ok. He is tolerating diet. Patient would like to go home soon. The patient denies any chest pain, syncopal episodes, fevers, chills , nausea, vomiting, changes in vision, or any other complaints. Objective - Vital Signs/Intake and Output Vital Signs (last 24 hours): Temp Pulse Resp BP Pulse Ox 98.6 F 101 H 18 142/96 H 100 04/04/17 12:45 04/04/17 12:45 04/04/17 12:45 04/04/17 12:45 04/04/17 12:45 Intake and Output: 04/04/17 04/04/17 06:59 18:59 Intake Total 750 200 Output Total 495 Balance 255 200 - Medications Medications: Current Medications Benzocaine/Menthol (Cepacol Sore Throat) 1 michael MT Q4 PRN PRN Reason: Sore Throat Last Admin: 03/24/17 09:18 Dose: 1 michael Docusate Sodium (Colace) 100 mg PO TID [facility] Last Admin: 04/04/17 13:09 Dose: Not Given Micafungin Sodium 100 mg/ (Sodium Chloride) 100 mls @ 100 mls/hr IV Q24H [facility] Last Admin: 04/04/17 09:52 Dose: 100 mls/hr Meropenem 1 gm/ Sodium (Chloride) 100 mls @ 100 mls/hr IVPB Q8 [facility] Last Admin: 04/04/17 14:25 Dose: 100 mls/hr Lactated Ringer's (Lactated Ringer's) 1,000 mls @ 100 mls/hr IV .Q10H [facility] Losartan Potassium (Cozaar) 25 mg PO DAILY [facility] Last Admin: 04/04/17 09:53 Dose: Not Given Metoprolol Tartrate (Lopressor) 25 mg PO BID [facility] Last Admin: 04/04/17 09:53 Dose: Not Given Pantoprazole Sodium (Protonix Ec Tab) 40 mg PO DAILY [facility] Last Admin: 04/04/17 09:54 Dose: Not Given Simethicone (Mylicon Chew Tab) 80 mg PO TID PRN PRN Reason: GI distress Last Admin: 03/30/17 09:36 Dose: 80 mg - Labs Labs: 04/04/17 06:54 04/04/17 06:54 PT 19.4 SECONDS (9.7-12.2) H D 03/17/17 20:14 INR 1.7 D 03/17/17 20:14 APTT 35 SECONDS (21-34) H D 03/17/17 20:14 Assessment and Plan - Assessment and Plan (Free Text) Assessment: This is a 62 year old male who came to the hospital on 03/15 with abdominal pain , weight loss, no BMs, and also dark emesis. He was determined to have a a 4.6 x 5 x 7 cm mass that was causing obstruction. This same imaging also suggested a metastatic spread of a cancer to lungs and liver as well. He then underwent a flexible sigmoidscopy on 03/16 and the biopsy showed adenocarcinoma. He underwent an exploratory laparotomy and left hemicolectomy and creation of a colostomy. Patient and family are aware of the adenocarcinoma. 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 04/04: Port a cath placed today. Will continue to monitor patient. WBC count trending down. 04/02: Now on regular diet and is tolerating 03/30: Continue liquid diet as tolerated. 03/27: He kept repeatedly asking for food. He did have 1400mL out from colostomy yesterday Will try a liquid diet for now. I cautioned him to eat slowly and he should stop if he cannot tolerate. Consider a repeat CT if needed 03/26: Now POD 14, abdomen is distended. He does not want an NGT for potential suctioning. Continue to monitor 03/25: Patient is now very awake and alert. 03/24: Now POD 11, the tissue from 03/17 has returned showing adenocarcinoma 03/21: Now with colostomy. He is S/P POD 8of exploratory laparotmy with left hemicolectomy and colostomy. He had takedown of splenic flexure, lysis of adhesions, omentectomy. biopsy. GI consult DR Esparza s/p sigmoidoscopy and biopsy follow biopsy report Patient remains extubated follow up sand buffer recommendation Hypokalemia Resolved Will continue to monitor with serial CMP's. Hypomagnesia Mg 1.5 Mg IVPB 1 gram Depression Patient reports feeling sad in regards to his prognosis. Patient denies any SI, HI, AH,VH on exam today. Re-consulted Psychiatry for examination. Will f/u with recs. Ventilator dependent respiratory failure 03/30:Continue nasal cannula. Duonebs Started. Will continue to monitor. 03/26: He is currently on nasal cannula doing ok. Continue follow RISHI 03/24: Now extubated, did ok overnight the tube feeds had to be held temporarily and now is restarted 03/23: Remains on CPAPA/PS settings, still has elevated WBC. is aware of poor prognosis 03/22: He tolerated being on CPAP/pressure support settings without incidence overnight hopefully at some point to be extubated 03/21: At this moment is on CPAP/PS settings Bilateral lobe pneumonia WBC starting to decrease will continue abx therapy 04/04: WBC 13.5 Today. Continue Vancomycin, Micafungin, Flagyl and Meopenem 03/26: Ordered additional blood cultures. Also procalcitonin. 03/24: Now extubated, remains on IV abx. WBC is 26, high procalcitonin. The blood pressures are stable for now. 03/23: Again high WBC, on Azithromycin, Cefepime, Flagyl. Blood and trach cultures negative 03/22: WBC count remains elevated with bandemia. Continue with IV abx. 03/21: As mentioned above, continue with ventilation, follow CXRAYs, IV abx The cultures remain negative at this moment Acute Kidney Injury 03/29: Creatinine 1 Resolved .Will continue to monitor. 03/27: Renal function is now stable. 03/22: Creatine decreased to 1.2, urine out put 3,500 Anemia monitor hemoglobin, 7.7 today. Transfuse 1 unit of PRBC. Will f/u with cbc in the A.M. type and screen and follow hemoglobin DVT prophylaxis-SCDs GI prophylaxis-Protonix SCDS Regular diet <Art Coronel - Last Filed: 04/04/17 17:51> Objective - Vital Signs/Intake and Output Vital Signs (last 24 hours): Temp Pulse Resp BP Pulse Ox 98.2 F 104 H 20 136/90 99 04/04/17 15:41 04/04/17 15:41 04/04/17 15:41 04/04/17 15:41 04/04/17 15:41 Intake and Output: 04/04/17 04/04/17 06:59 18:59 Intake Total 750 700 Output Total 495 415 Balance 255 285 - Medications Medications: Current Medications Benzocaine/Menthol (Cepacol Sore Throat) 1 michael MT Q4 PRN PRN Reason: Sore Throat Last Admin: 03/24/17 09:18 Dose: 1 michael Docusate Sodium (Colace) 100 mg PO TID [facility] Last Admin: 04/04/17 13:09 Dose: Not Given Micafungin Sodium 100 mg/ (Sodium Chloride) 100 mls @ 100 mls/hr IV Q24H [facility] Last Admin: 04/04/17 09:52 Dose: 100 mls/hr Meropenem 1 gm/ Sodium (Chloride) 100 mls @ 100 mls/hr IVPB Q8 [facility] Last Admin: 04/04/17 14:25 Dose: 100 mls/hr Lactated Ringer's (Lactated Ringer's) 1,000 mls @ 100 mls/hr IV .Q10H [facility] Last Admin: 04/04/17 15:54 Dose: Not Given Losartan Potassium (Cozaar) 25 mg PO DAILY [facility] Last Admin: 04/04/17 09:53 Dose: Not Given Metoprolol Tartrate (Lopressor) 25 mg PO BID [facility] Last Admin: 04/04/17 09:53 Dose: Not Given Pantoprazole Sodium (Protonix Ec Tab) 40 mg PO DAILY [facility] Last Admin: 04/04/17 09:54 Dose: Not Given Simethicone (Mylicon Chew Tab) 80 mg PO TID PRN PRN Reason: GI distress Last Admin: 03/30/17 09:36 Dose: 80 mg - Labs Labs: 04/04/17 06:54 04/04/17 06:54 PT 19.4 SECONDS (9.7-12.2) H D 03/17/17 20:14 INR 1.7 D 03/17/17 20:14 APTT 35 SECONDS (21-34) H D 03/17/17 20:14 Attending/Attestation - Attestation I have personally seen and examined this patient.: Yes I have fully participated in the care of the patient.: Yes I have reviewed all pertinent clinical information, including history, physical exam and plan: Yes Notes (Text): 04/04/17 17:51 Medical attending: Patient was seen and examined by me, agrees the above note by medical supply technician. I saw the patient together with medical supply technician. Today the patient underwent a Port-A-Cath placement. His white blood cell count is still elevated, at 13.5. Is being said it has been downtrending. His hemoglobin was lower today is 7.7, will transfuse him 1 unit of PRBCs We'll continue to monitor his blood work. Once his white blood cell count is further decrease will consider possibly discharging the patient. He is tolerating a regular diet Thank you very much, Art Coronel
[2017-04-04] MEDS: Lactated Ringer's 1,000 ML IV SCH ×2 (15:54→22:00)
--- NOTE | 2017-04-04 20:06 | CP.PCM.PN ---
Subjective - Date & Time of Evaluation Date of Evaluation: 04/04/17 Time of Evaluation: 05:15 - Subjective Subjective: dictated Objective - Vital Signs/Intake and Output Vital Signs (last 24 hours): Temp Pulse Resp BP Pulse Ox 98.2 F 104 H 20 136/90 99 04/04/17 15:41 04/04/17 15:41 04/04/17 15:41 04/04/17 18:28 04/04/17 15:41 Intake and Output: 04/04/17 04/05/17 18:59 06:59 Intake Total 700 Output Total 415 Balance 285 - Medications Medications: Current Medications Benzocaine/Menthol (Cepacol Sore Throat) 1 michael MT Q4 PRN PRN Reason: Sore Throat Last Admin: 03/24/17 09:18 Dose: 1 michael Docusate Sodium (Colace) 100 mg PO TID [facility] Last Admin: 04/04/17 18:28 Dose: 100 mg Micafungin Sodium 100 mg/ (Sodium Chloride) 100 mls @ 100 mls/hr IV Q24H [facility] Last Admin: 04/04/17 09:52 Dose: 100 mls/hr Meropenem 1 gm/ Sodium (Chloride) 100 mls @ 100 mls/hr IVPB Q8 [facility] Last Admin: 04/04/17 14:25 Dose: 100 mls/hr Lactated Ringer's (Lactated Ringer's) 1,000 mls @ 100 mls/hr IV .Q10H [facility] Last Admin: 04/04/17 15:54 Dose: Not Given Losartan Potassium (Cozaar) 25 mg PO DAILY [facility] Last Admin: 04/04/17 09:53 Dose: Not Given Metoprolol Tartrate (Lopressor) 25 mg PO BID [facility] Last Admin: 04/04/17 18:28 Dose: 25 mg Pantoprazole Sodium (Protonix Ec Tab) 40 mg PO DAILY [facility] Last Admin: 04/04/17 09:54 Dose: Not Given Simethicone (Mylicon Chew Tab) 80 mg PO TID PRN PRN Reason: GI distress Last Admin: 03/30/17 09:36 Dose: 80 mg - Labs Labs: 04/04/17 06:54 04/04/17 06:54 PT 19.4 SECONDS (9.7-12.2) H D 03/17/17 20:14 INR 1.7 D 03/17/17 20:14 APTT 35 SECONDS (21-34) H D 03/17/17 20:14
--- NOTE | 2017-04-04 21:32 | PN ---
DATE: 04/04/2017 SUBJECTIVE: Randy Brink was seen today and he is still on antibiotics and we were waiting for his white count to come down. He is trying to eat, but his appetite is poor. He went this morning to get a ultrasound, showed patent right IJV, tip is in the SVC. He is a post placement of right IJV. Tip is in the SVC. He does have colon cancer and he had surgery with Dr. Steinberg and he is tolerating diet now. He denies any cough or cold or chest pain. No shortness of breath. PHYSICAL EXAMINATION: VITAL SIGNS: His vitals are stable. T-Max is 98.2, heart rate of 104, blood pressure 136/90, respirations are 20. GENERAL: He wants to go home. HEENT: Head is atraumatic and normocephalic. NECK: Supple. LUNGS: Clear. HEART: S1 and S2 are regular. ABDOMEN: Has a colostomy bag and there is a dressing. EXTREMITIES: Have mild edema. LABORATORY DATA: White count is 13.5, hemoglobin 7.7, hematocrit is 23.4, platelets are 169, so, he is very anemic. Chemistry shows his BUN is 14, creatinine is 1.0, alk phos is 298. Wound had michelet albicans on 03/28/2017 and he is on meropenem and micafungin and since he was sitting, I could not see if this center wound is improved or not. ASSESSMENT AND PLAN: So, at this time, we will continue antibiotics. We will follow with the consultants and hopefully, he will make out of here soon as his white count is decreasing. Cadence Hutchins MD
[2017-04-04] MEDS: Benzocaine/Menthol (Cepacol) Lozenge MT PRN (21:39)
[2017-04-04 23:47] VITALS: RESP 20
[2017-04-05] MEDS: Meropenem 1 GM in Sodium Chloride 0.9% 100 ML IVPB SCH ×3 (05:45→21:10)
[2017-04-05 06:54] LABS: BASO # 0.1 K/uL (0.0-0.2); BASO % 1.1 % (0.0-2.0); EOS # 1.1 K/uL (0.0-0.7); EOS % 8.1 % (0.0-4.0); LYMPH # 1.4 K/uL (1.0-4.3); LYMPH % 11.1 % (20.0-40.0); MEAN CORPUSCULAR HEMOGLOBIN 26.7 pg (27.0-31.0); MEAN CORPUSCULAR HGB CONC 33.3 g/dL (33.0-37.0); MEAN PLATELET VOLUME 8.1 fL (7.2-11.7); MONO # 1.3 K/uL (0.0-0.8); MONO % 10.3 % (0.0-10.0); NEUT # 9.1 K/uL (1.8-7.0); NEUT % 69.4 % (50.0-75.0); NRBC % 0.1 % (0.0-2.0); RBC 3.37 Mil/uL (4.40-5.90); RED CELL DISTRIBUTION WIDTH 21.9 % (11.5-14.5); WHITE BLOOD COUNT 13.1 K/uL (4.8-10.8)
[2017-04-05 07:31] LABS: ALB/GLOB RATIO 0.7 (1.0-2.1); ALBUMIN 2.9 g/dL (3.5-5.0); ALT/SGPT 33 U/L (21-72); AST/SGOT 61 U/L (17-59); BLOOD UREA NITROGEN 15 mg/dL (9-20); CALCIUM 8.2 mg/dl (8.6-10.4); GFR AFRICAN-AMERICAN > 60; GFR NON-AFRICAN AMERICAN > 60
[2017-04-05] MEDS: Lactated Ringer's 1,000 ML IV SCH ×2 (08:23→18:15)
--- NOTE | 2017-04-05 09:03 | CP.PCM.PN ---
Subjective - Date & Time of Evaluation Date of Evaluation: 04/05/17 Time of Evaluation: 07:35 - Subjective Subjective: General surgery progress note for Dr. Theron Heath, PGY-1 Pt S & E at bedside. Pt reports minimal OOBTC, ambulating with PT. Tolerating diet. Had Port insertion yesterday with IR- no pain reported. Given 1 unit pRBCs due to Hgb 7.7 - now 9.0. No other acute events. Objective - Vital Signs/Intake and Output Vital Signs (last 24 hours): Temp Pulse Resp BP Pulse Ox 98.9 F 99 H 20 152/90 H 96 04/05/17 07:44 04/05/17 07:44 04/05/17 07:44 04/05/17 07:44 04/05/17 07:44 Intake and Output: 04/05/17 04/05/17 06:59 18:59 Intake Total 1575 Output Total 2020 Balance -445 - Medications Medications: Current Medications Benzocaine/Menthol (Cepacol Sore Throat) 1 michael MT Q4 PRN PRN Reason: Sore Throat Last Admin: 04/04/17 21:39 Dose: 1 michael Docusate Sodium (Colace) 100 mg PO TID [facility] Last Admin: 04/04/17 18:28 Dose: 100 mg Micafungin Sodium 100 mg/ (Sodium Chloride) 100 mls @ 100 mls/hr IV Q24H [facility] Last Admin: 04/04/17 09:52 Dose: 100 mls/hr Meropenem 1 gm/ Sodium (Chloride) 100 mls @ 100 mls/hr IVPB Q8 [facility] Last Admin: 04/05/17 05:45 Dose: 100 mls/hr Lactated Ringer's (Lactated Ringer's) 1,000 mls @ 100 mls/hr IV .Q10H [facility] Last Admin: 04/05/17 08:23 Dose: Not Given Losartan Potassium (Cozaar) 25 mg PO DAILY [facility] Last Admin: 04/04/17 09:53 Dose: Not Given Metoprolol Tartrate (Lopressor) 25 mg PO BID [facility] Last Admin: 04/04/17 18:28 Dose: 25 mg Pantoprazole Sodium (Protonix Ec Tab) 40 mg PO DAILY [facility] Last Admin: 02/05/18 09:54 Dose: Not Given Simethicone (Mylicon Chew Tab) 80 mg PO TID PRN PRN Reason: GI distress Last Admin: 03/30/17 09:36 Dose: 80 mg - Labs Labs: 04/05/17 06:42 04/05/17 06:42 PT 19.4 SECONDS (9.7-12.2) H D 03/17/17 20:14 INR 1.7 D 03/17/17 20:14 APTT 35 SECONDS (21-34) H D 03/17/17 20:14 - Constitutional Appears: Non-toxic, No Acute Distress - Head Exam Head Exam: ATRAUMATIC, NORMAL INSPECTION, NORMOCEPHALIC - Eye Exam Eye Exam: EOMI, Normal appearance - ENT Exam ENT Exam: Mucous Membranes Moist, Normal Exam - Neck Exam Neck Exam: Full ROM, Normal Inspection - Respiratory Exam Respiratory Exam: NORMAL BREATHING PATTERN - Cardiovascular Exam Cardiovascular Exam: REGULAR RHYTHM, +S1, +S2 - GI/Abdominal Exam GI & Abdominal Exam: Distended, Soft. absent: Firm, Guarding Additional comments: Midline susana in place, 2 areas of skin incision break down with dressing in place- minimal serous strike through to dressing Ostomy with air and moderate amount of dark brown stool- soft Vin drain with <20cc serous output- dressing changed - Extremities Exam Extremities Exam: Pedal Edema (bilateral) - Neurological Exam Neurological Exam: Alert, Awake, CN II-XII Intact, Oriented x3 - Psychiatric Exam Psychiatric exam: Normal Affect, Normal Mood - Skin Skin Exam: Dry, Normal Color, Warm. absent: Intact Assessment and Plan - Assessment and Plan (Free Text) Assessment: 62M w/stage IV colon cancer POD#19 s/p colectomy w/ end colostomy for obstructing mass s/p port placement POD#1 Plan: Cont IV ABx Leukocytosis down trending Encourage PO intake Cont prostat supplement PT recs [facility]/TCU for rehab FU SW consult GI/DVT ppx Further recs as per Dr. Maryan Heath, PGY-1
[2017-04-05] MEDS: Micafungin 100 MG in Sodium Chloride 0.9% 100 ML IV SCH (10:02)
[2017-04-05] MEDS: Pantoprazole 40 mg EC Tab PO SCH (10:09)
--- NOTE | 2017-04-05 17:11 | CP.PCM.PN ---
<Demar Walsh - Last Filed: 04/05/17 17:40> Subjective - Date & Time of Evaluation Date of Evaluation: 04/05/17 Time of Evaluation: 06:07 - Subjective Subjective: Patient was seen and examined at bedside. Per nursing no acute events occurred overnight. Patient reports feeling better after having blood transfusion yesterday. Patient denies any chest pain, abdominal pain, fevers, chills, nausea, vomiting, headaches, syncopal episodes, or any other complaints. Objective - Vital Signs/Intake and Output Vital Signs (last 24 hours): Temp Pulse Resp BP Pulse Ox 97.9 F 98 H 20 136/90 98 04/05/17 16:00 04/05/17 16:00 04/05/17 16:00 04/05/17 16:00 04/05/17 16:00 Intake and Output: 04/05/17 04/05/17 06:59 18:59 Intake Total 1575 560 Output Total 2020 150 Balance -445 410 - Medications Medications: Current Medications Benzocaine/Menthol (Cepacol Sore Throat) 1 michael MT Q4 PRN PRN Reason: Sore Throat Last Admin: 04/04/17 21:39 Dose: 1 michael Docusate Sodium (Colace) 100 mg PO TID [facility] Last Admin: 04/05/17 17:00 Dose: 100 mg Micafungin Sodium 100 mg/ (Sodium Chloride) 100 mls @ 100 mls/hr IV Q24H [facility] Last Admin: 04/05/17 10:02 Dose: 100 mls/hr Meropenem 1 gm/ Sodium (Chloride) 100 mls @ 100 mls/hr IVPB Q8 [facility] Last Admin: 04/05/17 13:39 Dose: 100 mls/hr Lactated Ringer's (Lactated Ringer's) 1,000 mls @ 100 mls/hr IV .Q10H [facility] Last Admin: 04/05/17 08:23 Dose: Not Given Losartan Potassium (Cozaar) 25 mg PO DAILY [facility] Last Admin: 04/05/17 10:02 Dose: 25 mg Pantoprazole Sodium (Protonix Ec Tab) 40 mg PO DAILY [facility] Last Admin: 04/05/17 10:09 Dose: 40 mg Simethicone (Mylicon Chew Tab) 80 mg PO TID PRN PRN Reason: GI distress Last Admin: 03/30/17 09:36 Dose: 80 mg - Labs Labs: 04/05/17 06:42 04/05/17 06:42 PT 19.4 SECONDS (9.7-12.2) H D 03/17/17 20:14 INR 1.7 D 03/17/17 20:14 APTT 35 SECONDS (21-34) H D 03/17/17 20:14 - Head Exam Head Exam: ATRAUMATIC, NORMAL INSPECTION, NORMOCEPHALIC - Eye Exam Eye Exam: EOMI, Normal appearance, PERRL. absent: Periorbital tenderness Pupil Exam: NORMAL ACCOMODATION, PERRL. absent: Irregular, Unequal - ENT Exam ENT Exam: Mucous Membranes Moist, Normal Exam, Normal Oropharynx - Neck Exam Neck Exam: Normal Inspection. absent: Lymphadenopathy, Thyromegaly - Respiratory Exam Respiratory Exam: Clear to Ausculation Bilateral, NORMAL BREATHING PATTERN. absent: Chest Wall Tenderness, Prolonged Expiratory Phase, Respiratory Distress - Cardiovascular Exam Cardiovascular Exam: REGULAR RHYTHM, +S1, +S2. absent: Rubs - GI/Abdominal Exam GI & Abdominal Exam: Soft, Normal Bowel Sounds. absent: Hyperactive Bowel Sounds Additional comments: Colostomy in place - Extremities Exam Extremities Exam: Full ROM. absent: Pedal Edema - Back Exam Back Exam: NORMAL INSPECTION. absent: CVA tenderness (L), CVA tenderness (R), paraspinal tenderness - Neurological Exam Neurological Exam: Alert, Awake, CN II-XII Intact, Oriented x3 - Psychiatric Exam Psychiatric exam: Normal Affect, Normal Mood. absent: Anxious, Depressed - Skin Skin Exam: Dry, Intact Additional comments: Port- a cath in place Assessment and Plan - Assessment and Plan (Free Text) Assessment: This is a 62 year old male who came to the hospital on 03/15 with abdominal pain , weight loss, no BMs, and also dark emesis. He was determined to have a a 4.6 x 5 x 7 cm mass that was causing obstruction. This same imaging also suggested a metastatic spread of a cancer to lungs and liver as well. He then underwent a flexible sigmoidscopy on 03/16 and the biopsy showed adenocarcinoma. He underwent an exploratory laparotomy and left hemicolectomy and creation of a colostomy. Patient and family are aware of the adenocarcinoma. 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 04/05: WBC continues to trend down . 13.1 today. Surgery cleared patient. Will f/ u with ID for recs'. Awating approval for [facility]. 04/04: Port a cath placed today. Will continue to monitor patient. WBC count trending down. 04/02: Now on regular diet and is tolerating 03/30: Continue liquid diet as tolerated. 03/27: He kept repeatedly asking for food. He did have 1400mL out from colostomy yesterday Will try a liquid diet for now. I cautioned him to eat slowly and he should stop if he cannot tolerate. Consider a repeat CT if needed 03/26: Now POD 14, abdomen is distended. He does not want an NGT for potential suctioning. Continue to monitor 03/25: Patient is now very awake and alert. 03/24: Now POD 11, the tissue from 03/17 has returned showing adenocarcinoma 03/21: Now with colostomy. He is S/P POD 8of exploratory laparotmy with left hemicolectomy and colostomy. He had takedown of splenic flexure, lysis of adhesions, omentectomy. biopsy. GI consult DR Esparza s/p sigmoidoscopy and biopsy follow biopsy report Patient remains extubated follow up treater helper recommendation Hypokalemia Resolved Will continue to monitor with serial CMP's. Hypomagnesia Resolved Will continue to monitor with serial CMP's Depression Patient reports feeling sad in regards to his prognosis. Patient denies any SI, HI, AH,VH on exam today. Re-consulted Psychiatry for examination. Will f/u with recs. Ventilator dependent respiratory failure 03/30:Continue nasal cannula. Duonebs Started. Will continue to monitor. 03/26: He is currently on nasal cannula doing ok. Continue follow RISHI 03/24: Now extubated, did ok overnight the tube feeds had to be held temporarily and now is restarted 03/23: Remains on CPAPA/PS settings, still has elevated WBC. is aware of poor prognosis 03/22: He tolerated being on CPAP/pressure support settings without incidence overnight hopefully at some point to be extubated 03/21: At this moment is on CPAP/PS settings Bilateral lobe pneumonia WBC starting to decrease will continue abx therapy 04/04: WBC 13.5 Today. Continue Vancomycin, Micafungin, Flagyl and Meopenem 03/26: Ordered additional blood cultures. Also procalcitonin. 03/24: Now extubated, remains on IV abx. WBC is 26, high procalcitonin. The blood pressures are stable for now. 03/23: Again high WBC, on Azithromycin, Cefepime, Flagyl. Blood and trach cultures negative 03/22: WBC count remains elevated with bandemia. Continue with IV abx. 03/21: As mentioned above, continue with ventilation, follow CXRAYs, IV abx The cultures remain negative at this moment Acute Kidney Injury 04/05: Creatinine 1.1 Resolved .Will continue to monitor. 03/27: Renal function is now stable. 03/22: Creatine decreased to 1.2, urine out put 3,500 Anemia monitor hemoglobin, 9 today S/P 1 unit of PRBC. Will f/u with cbc in the A.M. type and screen and follow hemoglobin DVT prophylaxis-SCDs GI prophylaxis-Protonix SCDS Regular diet <Art Coronel H - Last Filed: 04/05/17 18:36> Objective - Vital Signs/Intake and Output Vital Signs (last 24 hours): Temp Pulse Resp BP Pulse Ox 97.9 F 98 H 20 136/90 98 04/05/17 16:00 04/05/17 16:00 04/05/17 16:00 04/05/17 16:00 04/05/17 16:00 Intake and Output: 04/05/17 04/05/17 06:59 18:59 Intake Total 1575 560 Output Total 2020 150 Balance -445 410 - Medications Medications: Current Medications Benzocaine/Menthol (Cepacol Sore Throat) 1 michael MT Q4 PRN PRN Reason: Sore Throat Last Admin: 04/04/17 21:39 Dose: 1 michael Docusate Sodium (Colace) 100 mg PO TID [facility] Last Admin: 04/05/17 17:00 Dose: 100 mg Micafungin Sodium 100 mg/ (Sodium Chloride) 100 mls @ 100 mls/hr IV Q24H [facility] Last Admin: 04/05/17 10:02 Dose: 100 mls/hr Meropenem 1 gm/ Sodium (Chloride) 100 mls @ 100 mls/hr IVPB Q8 [facility] Last Admin: 04/05/17 13:39 Dose: 100 mls/hr Lactated Ringer's (Lactated Ringer's) 1,000 mls @ 100 mls/hr IV .Q10H [facility] Last Admin: 04/05/17 08:23 Dose: Not Given Losartan Potassium (Cozaar) 25 mg PO DAILY [facility] Last Admin: 04/05/17 10:02 Dose: 25 mg Pantoprazole Sodium (Protonix Ec Tab) 40 mg PO DAILY [facility] Last Admin: 04/05/17 10:09 Dose: 40 mg Simethicone (Mylicon Chew Tab) 80 mg PO TID PRN PRN Reason: GI distress Last Admin: 03/30/17 09:36 Dose: 80 mg - Labs Labs: 04/05/17 06:42 04/05/17 06:42 PT 19.4 SECONDS (9.7-12.2) H D 03/17/17 20:14 INR 1.7 D 03/17/17 20:14 APTT 35 SECONDS (21-34) H D 03/17/17 20:14 Attending/Attestation - Attestation I have personally seen and examined this patient.: Yes I have fully participated in the care of the patient.: Yes I have reviewed all pertinent clinical information, including history, physical exam and plan: Yes Notes (Text): 04/05/17 18:36 Medical attending: Patient was seen and examined by me, reviewed the above note by the medical aide. I saw the patient with medical aide. As reported above the resident note, the white blood cell count has continued to decrease, it's now 13.1. He still remains on the IV antibiotics at this time. He is on IV meropenem that's currently been giving every every 8 hours. Yesterday at night he had 1 unit of PRBCs given since he was slightly anemic given his history of colon cancer with metastases to the lung the liver wanted to take a higher level before any potential discharge Yesterday he had placement of a Mediport. Today when we saw him he reported he was not in any acute distress. He denied having any abdominal pain. He had output in his colostomy bag He was looking forward to going to rehabilitation currently were pending authorization for the rehabilitation we spent Thank you very much, Art Coronel
--- NOTE | 2017-04-05 22:36 | CP.PCM.PN ---
Subjective - Date & Time of Evaluation Date of Evaluation: 04/04/17 Time of Evaluation: 19:00 - Subjective Subjective: Feeling better Objective - Vital Signs/Intake and Output Vital Signs (last 24 hours): Temp Pulse Resp BP Pulse Ox 97.9 F 98 H 20 136/90 98 04/05/17 16:00 04/05/17 16:00 04/05/17 16:00 04/05/17 16:00 04/05/17 16:00 Intake and Output: 04/05/17 04/06/17 18:59 06:59 Intake Total 560 Output Total 150 Balance 410 - Medications Medications: Current Medications Benzocaine/Menthol (Cepacol Sore Throat) 1 michael MT Q4 PRN PRN Reason: Sore Throat Last Admin: 04/04/17 21:39 Dose: 1 michael Docusate Sodium (Colace) 100 mg PO TID [facility] Last Admin: 04/05/17 17:00 Dose: 100 mg Micafungin Sodium 100 mg/ (Sodium Chloride) 100 mls @ 100 mls/hr IV Q24H [facility] Last Admin: 04/05/17 10:02 Dose: 100 mls/hr Meropenem 1 gm/ Sodium (Chloride) 100 mls @ 100 mls/hr IVPB Q8 [facility] Last Admin: 04/05/17 21:10 Dose: 100 mls/hr Lactated Ringer's (Lactated Ringer's) 1,000 mls @ 100 mls/hr IV .Q10H [facility] Last Admin: 04/05/17 18:15 Dose: Not Given Losartan Potassium (Cozaar) 25 mg PO DAILY [facility] Last Admin: 04/05/17 10:02 Dose: 25 mg Pantoprazole Sodium (Protonix Ec Tab) 40 mg PO DAILY [facility] Last Admin: 04/05/17 10:09 Dose: 40 mg Simethicone (Mylicon Chew Tab) 80 mg PO TID PRN PRN Reason: GI distress Last Admin: 03/30/17 09:36 Dose: 80 mg - Labs Labs: 04/05/17 06:42 04/05/17 06:42 PT 19.4 SECONDS (9.7-12.2) H D 03/17/17 20:14 INR 1.7 D 03/17/17 20:14 APTT 35 SECONDS (21-34) H D 03/17/17 20:14 - Head Exam Head Exam: ATRAUMATIC - Eye Exam Eye Exam: Normal appearance - ENT Exam ENT Exam: Mucous Membranes Dry - Respiratory Exam Respiratory Exam: NORMAL BREATHING PATTERN - Cardiovascular Exam Cardiovascular Exam: +S1, +S2 - GI/Abdominal Exam GI & Abdominal Exam: Normal Bowel Sounds - Extremities Exam Extremities Exam: Normal Inspection Assessment and Plan (1) Colon cancer Assessment & Plan: stage IV outpatient chemotherapy Status: Acute (2) Anemia Assessment & Plan: chronic disease recommend transfusion support Status: Acute
--- NOTE | 2017-04-05 22:37 | CP.PCM.PN ---
Subjective - Date & Time of Evaluation Date of Evaluation: 04/05/17 Time of Evaluation: 18:00 - Subjective Subjective: No complaints Objective - Vital Signs/Intake and Output Vital Signs (last 24 hours): Temp Pulse Resp BP Pulse Ox 97.9 F 98 H 20 136/90 98 04/05/17 16:00 04/05/17 16:00 04/05/17 16:00 04/05/17 16:00 04/05/17 16:00 Intake and Output: 04/05/17 04/06/17 18:59 06:59 Intake Total 560 Output Total 150 Balance 410 - Medications Medications: Current Medications Benzocaine/Menthol (Cepacol Sore Throat) 1 michael MT Q4 PRN PRN Reason: Sore Throat Last Admin: 04/04/17 21:39 Dose: 1 michael Docusate Sodium (Colace) 100 mg PO TID [facility] Last Admin: 04/05/17 17:00 Dose: 100 mg Micafungin Sodium 100 mg/ (Sodium Chloride) 100 mls @ 100 mls/hr IV Q24H [facility] Last Admin: 04/05/17 10:02 Dose: 100 mls/hr Meropenem 1 gm/ Sodium (Chloride) 100 mls @ 100 mls/hr IVPB Q8 [facility] Last Admin: 04/05/17 21:10 Dose: 100 mls/hr Lactated Ringer's (Lactated Ringer's) 1,000 mls @ 100 mls/hr IV .Q10H [facility] Last Admin: 04/05/17 18:15 Dose: Not Given Losartan Potassium (Cozaar) 25 mg PO DAILY [facility] Last Admin: 04/05/17 10:02 Dose: 25 mg Pantoprazole Sodium (Protonix Ec Tab) 40 mg PO DAILY [facility] Last Admin: 04/05/17 10:09 Dose: 40 mg Simethicone (Mylicon Chew Tab) 80 mg PO TID PRN PRN Reason: GI distress Last Admin: 03/30/17 09:36 Dose: 80 mg - Labs Labs: 04/05/17 06:42 04/05/17 06:42 PT 19.4 SECONDS (9.7-12.2) H D 03/17/17 20:14 INR 1.7 D 03/17/17 20:14 APTT 35 SECONDS (21-34) H D 03/17/17 20:14 - Head Exam Head Exam: ATRAUMATIC - Eye Exam Eye Exam: Normal appearance - ENT Exam ENT Exam: Mucous Membranes Dry - Respiratory Exam Respiratory Exam: NORMAL BREATHING PATTERN - Cardiovascular Exam Cardiovascular Exam: +S1, +S2 - GI/Abdominal Exam GI & Abdominal Exam: Normal Bowel Sounds Assessment and Plan (1) Colon cancer Assessment & Plan: stage IV Status: Acute (2) Anemia Assessment & Plan: chronic disease from malignancy Status: Acute
[2017-04-06] MEDS: Lactated Ringer's 1,000 ML IV SCH (04:15)
[2017-04-06] MEDS: Meropenem 1 GM in Sodium Chloride 0.9% 100 ML IVPB SCH ×2 (06:02→13:43)
[2017-04-06] MEDS: Micafungin 100 MG in Sodium Chloride 0.9% 100 ML IV SCH (10:20)
[2017-04-06] MEDS: Pantoprazole 40 mg EC Tab PO SCH (10:21)
[2017-04-06] MEDS: Simethicone 80 mg Chewtab PO PRN (10:21)
[2017-04-06 11:49] LABS: HEMOGLOBIN 9.4 g/dL (12.0-18.0); MEAN CELL VOLUME 79.9 fL (80.0-94.0); MEAN CORPUSCULAR HGB CONC 32.6 g/dL (33.0-37.0); MEAN PLATELET VOLUME 8.1 fL (7.2-11.7); RBC 3.63 Mil/uL (4.40-5.90); RED CELL DISTRIBUTION WIDTH 21.9 % (11.5-14.5); WHITE BLOOD COUNT 13.8 K/uL (4.8-10.8)
[2017-04-06 12:04] LABS: ALB/GLOB RATIO 0.7 (1.0-2.1); ALBUMIN 3.2 g/dL (3.5-5.0); ALT/SGPT 34 U/L (21-72); AST/SGOT 64 U/L (17-59); BLOOD UREA NITROGEN 16 mg/dL (9-20); CALCIUM 7.8 mg/dl (8.6-10.4); GFR AFRICAN-AMERICAN > 60; GFR NON-AFRICAN AMERICAN > 60; MAGNESIUM 1.7 mg/dL (1.6-2.3)
--- NOTE | 2017-04-06 13:05 | CP.PCM.PN ---
Subjective - Date & Time of Evaluation Date of Evaluation: 04/06/17 Time of Evaluation: 11:30 - Subjective Subjective: General Surgery Pt S&E with Dr. Steinberg. PETRA. Discussed plan of care with pt and . Tolerating diet. Able to ambulate short distances with some difficulty. Objective - Vital Signs/Intake and Output Vital Signs (last 24 hours): Temp Pulse Resp BP Pulse Ox 97.5 F L 101 H 20 147/91 H 96 04/06/17 07:54 04/06/17 07:54 04/06/17 07:54 04/06/17 07:54 04/06/17 07:54 Intake and Output: 04/06/17 04/06/17 06:59 18:59 Intake Total 180 Output Total 20 Balance 160 - Medications Medications: Current Medications Benzocaine/Menthol (Cepacol Sore Throat) 1 michael MT Q4 PRN PRN Reason: Sore Throat Last Admin: 04/04/17 21:39 Dose: 1 michael Docusate Sodium (Colace) 100 mg PO TID [facility] Last Admin: 04/06/17 10:20 Dose: 100 mg Micafungin Sodium 100 mg/ (Sodium Chloride) 100 mls @ 100 mls/hr IV Q24H [facility] Last Admin: 04/06/17 10:20 Dose: 100 mls/hr Meropenem 1 gm/ Sodium (Chloride) 100 mls @ 100 mls/hr IVPB Q8 [facility] Last Admin: 04/06/17 06:02 Dose: 100 mls/hr Lactated Ringer's (Lactated Ringer's) 1,000 mls @ 100 mls/hr IV .Q10H [facility] Last Admin: 04/06/17 04:15 Dose: Not Given Pantoprazole Sodium (Protonix Ec Tab) 40 mg PO DAILY [facility] Last Admin: 04/06/17 10:21 Dose: 40 mg Simethicone (Mylicon Chew Tab) 80 mg PO TID PRN PRN Reason: GI distress Last Admin: 04/06/17 10:21 Dose: 80 mg - Labs Labs: 04/06/17 11:45 04/06/17 11:45 PT 19.4 SECONDS (9.7-12.2) H D 03/17/17 20:14 INR 1.7 D 03/17/17 20:14 APTT 35 SECONDS (21-34) H D 03/17/17 20:14 - Constitutional Appears: Non-toxic, No Acute Distress - Head Exam Head Exam: ATRAUMATIC, NORMOCEPHALIC - Eye Exam Eye Exam: EOMI. absent: Scleral icterus - Respiratory Exam Respiratory Exam: NORMAL BREATHING PATTERN. absent: Respiratory Distress - GI/Abdominal Exam GI & Abdominal Exam: Soft. absent: Firm, Guarding, Rigid, Tenderness, Rebound Additional comments: Ostomy pink, viable incision C/D, 2 openings with granulation tissue. susana in place Drain with serous output. - Neurological Exam Neurological Exam: Alert, Awake - Skin Skin Exam: Dry, Warm Assessment and Plan - Assessment and Plan (Free Text) Assessment: 62M w/stage IV colon cancer POD#20 s/p colectomy w/ end colostomy for obstructing mass s/p port placement POD#2 Plan: -Discussed pt with Dr. Hutchins (ID), she is awaiting a procalcitonin level but thinks if it has gone down from the last (03/28/17) level, he can be sent to rehab on Diflucan and Levaquin. Awaiting her final recs. - Ok for rehab/[facility] from a surgical standpoint. -He has been given a prescription for CBCs on Apr 07 and to follow his leukocytosis to make sure it is not increasing once he is on oral antibiotics. If it does trend up, he may need further CBCs. -He is to follow up with his Surgeon Dr. Steinberg on 04/12/17 in his office for wound evaluation and possible drain removal. D/W Dr. Maryan Galvan PGY4
--- NOTE | 2017-04-06 14:24 | CP.PCM.PN ---
Subjective - Date & Time of Evaluation Date of Evaluation: 04/06/17 Time of Evaluation: 08:22 - Subjective Subjective: Patient was seen and examined at bedside. Per nursing no acute events occurred overnight. The patient reports being tolerating diet with no complaints. The patient denies any chest pain, dizziness, syncopal episodes, fevers, chills , changes in vision, or any other complaints. Objective - Vital Signs/Intake and Output Vital Signs (last 24 hours): Temp Pulse Resp BP Pulse Ox 97.5 F L 101 H 20 147/91 H 96 04/06/17 07:54 04/06/17 07:54 04/06/17 07:54 04/06/17 13:44 04/06/17 07:54 Intake and Output: 04/06/17 04/06/17 06:59 18:59 Intake Total 180 Output Total 20 Balance 160 - Medications Medications: Current Medications Benzocaine/Menthol (Cepacol Sore Throat) 1 michael MT Q4 PRN PRN Reason: Sore Throat Last Admin: 04/04/17 21:39 Dose: 1 michael Docusate Sodium (Colace) 100 mg PO TID [facility] Last Admin: 04/06/17 13:39 Dose: 100 mg Micafungin Sodium 100 mg/ (Sodium Chloride) 100 mls @ 100 mls/hr IV Q24H [facility] Last Admin: 04/06/17 10:20 Dose: 100 mls/hr Meropenem 1 gm/ Sodium (Chloride) 100 mls @ 100 mls/hr IVPB Q8 [facility] Last Admin: 04/06/17 13:43 Dose: 100 mls/hr Lactated Ringer's (Lactated Ringer's) 1,000 mls @ 100 mls/hr IV .Q10H [facility] Last Admin: 04/06/17 04:15 Dose: Not Given Pantoprazole Sodium (Protonix Ec Tab) 40 mg PO DAILY [facility] Last Admin: 04/06/17 10:21 Dose: 40 mg Simethicone (Mylicon Chew Tab) 80 mg PO TID PRN PRN Reason: GI distress Last Admin: 04/06/17 10:21 Dose: 80 mg - Labs Labs: 04/06/17 11:45 04/06/17 11:45 PT 19.4 SECONDS (9.7-12.2) H D 03/17/17 20:14 INR 1.7 D 03/17/17 20:14 APTT 35 SECONDS (21-34) H D 03/17/17 20:14 - Head Exam Head Exam: ATRAUMATIC, NORMAL INSPECTION, NORMOCEPHALIC - Eye Exam Eye Exam: EOMI, Normal appearance, PERRL. absent: Periorbital tenderness Pupil Exam: absent: Irregular, Unequal - ENT Exam ENT Exam: Mucous Membranes Moist, Normal Oropharynx - Neck Exam Neck Exam: Normal Inspection. absent: Lymphadenopathy, Thyromegaly - Respiratory Exam Respiratory Exam: Clear to Ausculation Bilateral, NORMAL BREATHING PATTERN. absent: Chest Wall Tenderness, Prolonged Expiratory Phase, Respiratory Distress - Cardiovascular Exam Cardiovascular Exam: REGULAR RHYTHM, RRR, +S1, +S2. absent: Gallop, Rubs - GI/Abdominal Exam GI & Abdominal Exam: Soft, Normal Bowel Sounds. absent: Rigid, Hyperactive Bowel Sounds - Extremities Exam Extremities Exam: Full ROM. absent: Joint Swelling, Pedal Edema, Tenderness - Back Exam Back Exam: NORMAL INSPECTION. absent: CVA tenderness (L), CVA tenderness (R), paraspinal tenderness - Neurological Exam Neurological Exam: Alert, Awake, CN II-XII Intact, Normal Gait - Psychiatric Exam Psychiatric exam: Normal Affect, Normal Mood. absent: Depressed - Skin Skin Exam: Dry, Intact, Normal Color Assessment and Plan - Assessment and Plan (Free Text) Assessment: This is a 62 year old male who came to the hospital on 03/15 with abdominal pain , weight loss, no BMs, and also dark emesis. He was determined to have a a 4.6 x 5 x 7 cm mass that was causing obstruction. This same imaging also suggested a metastatic spread of a cancer to lungs and liver as well. He then underwent a flexible sigmoidscopy on 03/16 and the biopsy showed adenocarcinoma. He underwent an exploratory laparotomy and left hemicolectomy and creation of a colostomy. Patient and family are aware of the adenocarcinoma.
--- NOTE | 2017-04-06 14:40 | CP.PCM.DIS ---
<NicoDemar - Last Filed: 04/06/17 17:41> Provider - Provider Date of Admission: 03/15/17 06:29 Attending physician: Jose Ledezma MD Primary care physician: Stephan Consults: Nephrology: Rob Pulmonary: Dennis [facility] Hematology: Ishaan Psych: Felixden Infectious disease: Liset Time Spent in preparation of Discharge (in minutes): 45 Hospital Course - Lab Results Lab Results: Micro Results 03/28/17 09:08 Abdominal Fluid Gram Stain - Final 03/28/17 09:08 Abdominal Fluid Body Fluid Culture - Final No growth. 03/27/17 05:30 Blood-Venous Blood Culture - Final NO GROWTH AFTER 5 DAYS 03/27/17 05:30 Blood-Venous Gram Stain - Final TEST NOT PERFORMED 03/27/17 05:00 Blood-Venous Blood Culture - Final NO GROWTH AFTER 5 DAYS 03/27/17 05:00 Blood-Venous Gram Stain - Final TEST NOT PERFORMED 03/28/17 11:24 Other: Please Indicate Gram Stain - Final 03/28/17 11:24 Other: Please Indicate Wound Culture - Final Corrie Albicans 03/28/17 19:23 Naris MRSA Culture - Final MRSA NOT DETECTED 03/23/17 09:54 Urine Urine Culture - Final No Growth (<1,000 CFU/ML) 03/22/17 09:31 Trachasp Gram Stain - Final 03/22/17 09:31 Trachasp Sputum Culture - Final Yeast Species 03/19/17 00:15 Blood-Venous Blood Culture - Final NO GROWTH AFTER 5 DAYS 03/19/17 00:15 Blood-Venous Gram Stain - Final TEST NOT PERFORMED 03/19/17 00:30 Blood-Venous Blood Culture - Final NO GROWTH AFTER 5 DAYS 03/19/17 00:30 Blood-Venous Gram Stain - Final TEST NOT PERFORMED 03/19/17 15:25 Trachasp Gram Stain - Final 03/19/17 15:25 Trachasp Sputum Culture - Final NORMAL ORAL ALBERT 03/15/17 09:44 Blood Blood Culture - Final NO GROWTH AFTER 5 DAYS 03/15/17 09:44 Blood Gram Stain - Final TEST NOT PERFORMED 03/15/17 09:44 Blood Blood Culture - Final NO GROWTH AFTER 5 DAYS 03/15/17 09:44 Blood Gram Stain - Final TEST NOT PERFORMED 03/17/17 11:58 Urine,Clean Catch Urine Culture - Final No Growth (<1,000 CFU/ML) 03/15/17 08:39 Naris MRSA Culture (Admit) - Final MRSA NOT DETECTED Most Recent Lab Values WBC 13.8 K/uL (4.8-10.8) H 04/06/17 11:45 RBC 3.63 Mil/uL (4.40-5.90) L 04/06/17 11:45 Hgb 9.4 g/dL (12.0-18.0) L 04/06/17 11:45 Hct 29.0 % (35.0-51.0) L 04/06/17 11:45 MCV 79.9 fL (80.0-94.0) L 04/06/17 11:45 MCH 26.0 pg (27.0-31.0) L 04/06/17 11:45 MCHC 32.6 g/dL (33.0-37.0) L 04/06/17 11:45 RDW 21.9 % (11.5-14.5) H 04/06/17 11:45 Plt Count 164 K/uL (130-400) 04/06/17 11:45 MPV 8.1 fL (7.2-11.7) 04/06/17 11:45 Neut % (Auto) 69.4 % (50.0-75.0) 04/05/17 06:42 Lymph % (Auto) 11.1 % (20.0-40.0) L 04/05/17 06:42 Barrow % (Auto) 10.3 % (0.0-10.0) H 04/05/17 06:42 Eos % (Auto) 8.1 % (0.0-4.0) H 04/05/17 06:42 Baso % (Auto) 1.1 % (0.0-2.0) 04/05/17 06:42 Neut # (Auto) 9.1 K/uL (1.8-7.0) H 04/05/17 06:42 Lymph # (Auto) 1.4 K/uL (1.0-4.3) 04/05/17 06:42 Barrow # (Auto) 1.3 K/uL (0.0-0.8) H 04/05/17 06:42 Eos # (Auto) 1.1 K/uL (0.0-0.7) H 04/05/17 06:42 Baso # (Auto) 0.1 K/uL (0.0-0.2) 04/05/17 06:42 Neutrophils % (Manual) 71 % (50-75) 04/03/17 11:38 Band Neutrophils % 6 % (0-2) H 04/03/17 11:38 Metamyelocytes % 1 % (0-0) H 03/24/17 06:36 Lymphocytes % (Manual) 8 % (20-40) L 04/03/17 11:38 Myelocytes % 1 % (0-0) H 03/23/17 05:48 Reactive Lymphs % 1 % (0-0) H 03/31/17 11:13 Monocytes % (Manual) 11 % (0-10) H 04/03/17 11:38 Eosinophils % (Manual) 4 % (0-4) 04/03/17 11:38 Basophils % (Manual) 1 % (0-2) 04/02/17 11:45 Toxic Granulation Present 03/26/17 06:11 Plt Clumps, EDTA Present 03/25/17 06:28 Giant Platelets Present 03/24/17 06:36 Platelet Estimate Normal (NORMAL) 04/03/17 11:38 Large Platelets Present 04/03/17 11:38 Basophilic Stippling Slight 03/24/17 06:36 Polychromasia Slight 04/02/17 11:45 Hypochromasia (manual) Slight 04/03/17 11:38 Poikilocytosis (manual Slight 03/31/17 11:13 Anisocytosis (manual) Moderate 04/03/17 11:38 Microcytosis (manual) Slight 04/03/17 11:38 Schistocytes Slight 03/22/17 06:27 Target Cells Slight 04/03/17 11:38 Tear Drop Cells Slight 04/03/17 11:38 Ovalocytes Slight 04/03/17 11:38 Retic Count 0.9 % (0.5-1.5) 03/23/17 05:48 PT 19.4 SECONDS (9.7-12.2) H D 03/17/17 20:14 INR 1.7 D 03/17/17 20:14 APTT 35 SECONDS (21-34) H D 03/17/17 20:14 Puncture Site L r 03/23/17 05:40 pCO2 31 mm/Hg (35-45) L 03/23/17 05:40 pO2 141 mm/Hg (80-100) H 03/23/17 05:40 HCO3 23.5 mmol/L (21-28) 03/23/17 05:40 ABG pH 7.45 (7.35-7.45) 03/23/17 05:40 ABG Total CO2 22.5 mmol/L (22-28) 03/23/17 05:40 ABG O2 Saturation 99.5 % (95-98) H 03/23/17 05:40 ABG Base Excess -1.9 mmol/L (-2.0-3.0) 03/23/17 05:40 ABG Hemoglobin 10.2 g/dL (11.7-17.4) L 03/23/17 05:40 ABG Carboxyhemoglobin 1.6 % (0.5-1.5) H 03/23/17 05:40 POC ABG HHb (Measured) 0.5 % (0.0-5.0) 03/23/17 05:40 ABG Methemoglobin 1.1 % (0.0-3.0) 03/23/17 05:40 Satinder Test Pos 03/23/17 05:40 ABG Potassium 4.0 mmol/L (3.6-5.2) 03/17/17 15:50 VBG pH 7.43 (7.32-7.43) 03/15/17 05:35 VBG pCO2 45 mmHg (40-60) 03/15/17 05:35 VBG HCO3 27.3 mmol/L 03/15/17 05:35 VBG Total CO2 31.3 mmol/L (22-28) H 03/15/17 05:35 VBG O2 Sat (Calc) 46.8 % (40-65) 03/15/17 05:35 VBG Base Excess 4.8 mmol/L (0.0-2.0) H 03/15/17 05:35 VBG Potassium 4.3 mmol/L (3.6-5.2) 03/15/17 05:35 A-a O2 Difference 105.0 mm/Hg 03/23/17 05:40 Respiratory Index 0.7 03/23/17 05:40 Hgb O2 Saturation 96.7 % (95.0-98.0) 03/23/17 05:40 Sodium 128.0 mmol/l (132-148) L 03/17/17 15:50 Chloride 101.0 mmol/L (98-107) 03/17/17 15:50 Glucose 115 mg/dl (75-110) H 03/17/17 15:50 Lactate 1.7 mmol/L (0.7-2.1) 03/17/17 15:50 Vent Mode Cpap 03/23/17 05:40 Mechanical Rate 12 03/21/17 05:23 FiO2 40.0 % 03/23/17 05:40 Tidal Volume 500 03/21/17 05:23 PEEP 8 03/21/17 05:23 Pressure Support 10 03/23/17 05:40 CPAP 5 03/23/17 05:40 Crit Value Called To programming internshipraghavendra gallagher 03/17/17 14:25 Crit Value Called By Agustín boggs rcp 03/17/17 14:25 Crit Value Read Back Y 03/17/17 14:25 Blood Gas Notified Time 1435 03/17/17 14:25 Sodium 137 mmol/L (132-148) 04/06/17 11:45 Potassium 3.8 mmol/L (3.6-5.2) 04/06/17 11:45 Chloride 101 mmol/L (98-107) 04/06/17 11:45 Carbon Dioxide 27 mmol/L (22-30) 04/06/17 11:45 Anion Gap 13 (10-20) 04/06/17 11:45 BUN 16 mg/dL (9-20) 04/06/17 11:45 Creatinine 1.0 mg/dL (0.8-1.5) 04/06/17 11:45 Est GFR ( Amer) > 60 04/06/17 11:45 Est GFR (Non-Af Amer) > 60 04/06/17 11:45 Random Glucose 113 mg/dL (75-110) H 04/06/17 11:45 Lactic Acid 1.3 mmol/L (0.7-2.1) 03/18/17 07:00 Calcium 7.8 mg/dl (8.6-10.4) L 04/06/17 11:45 Phosphorus 3.3 mg/dL (2.5-4.5) 04/04/17 06:54 Magnesium 1.7 mg/dL (1.6-2.3) 04/06/17 11:45 Ferritin 362.0 ng/mL 03/23/17 05:48 Total Bilirubin 0.7 mg/dL (0.2-1.3) 04/06/17 11:45 AST 64 U/L (17-59) H 04/06/17 11:45 ALT 34 U/L (21-72) 04/06/17 11:45 Alkaline Phosphatase 320 U/L (38-126) H 04/06/17 11:45 Total Protein 7.5 g/dL (6.3-8.3) 04/06/17 11:45 Albumin 3.2 g/dL (3.5-5.0) L 04/06/17 11:45 Globulin 4.3 gm/dL (2.2-3.9) H 04/06/17 11:45 Albumin/Globulin Ratio 0.7 (1.0-2.1) L 04/06/17 11:45 Carcinoembryonic Ag 2590.0 ng/mL (0-3.0) H 03/15/17 18:45 Vitamin B12 > 1000 pg/mL (239-931) H 03/23/17 05:48 Folate 8.8 ng/mL 03/23/17 05:48 TSH 3rd Generation 1.23 mIU/L (0.46-4.68) 03/20/17 06:40 Procalcitonin 0.57 NG/ML (0.19-0.49) H 04/06/17 11:45 Arterial Blood Potassium 4.0 mmol/L (3.6-5.2) 03/17/17 15:50 Venous Blood Potassium 4.3 mmol/L (3.6-5.2) 03/15/17 05:35 Urine Color Darlyn (YELLOW) 03/16/17 18:15 Urine Clarity Clear (Clear) 03/16/17 18:15 Urine pH 5.0 (5.0-8.0) 03/16/17 18:15 Ur Specific Niotaze 1.031 (1.003-1.030) H 03/16/17 18:15 Urine Protein 1+ mg/dL (NEGATIVE) H 03/16/17 18:15 Urine Glucose (UA) Normal mg/dL (Normal) 03/16/17 18:15 Urine Ketones 1+ mg/dL (NEGATIVE) H 03/16/17 18:15 Urine Blood Negative (NEGATIVE) 03/16/17 18:15 Urine Nitrate Negative (NEGATIVE) 03/16/17 18:15 Urine Bilirubin Negative (NEGATIVE) 03/16/17 18:15 Urine Urobilinogen 4.0 mg/dL (0.2-1.0) 03/16/17 18:15 Ur Leukocyte Esterase 2+ Linda/uL (Negative) H 03/16/17 18:15 Urine WBC (Auto) 14 /hpf (0-5) H 03/16/17 18:15 Urine RBC (Auto) 1 /hpf (0-3) 03/16/17 18:15 Ur Squamous Epith Cells 1 /hpf (0-5) 03/16/17 18:15 Ur Transition Epith Cell < 1 /hpf (0-3) 03/16/17 18:15 Urine Bacteria Few (<OCC) H 03/16/17 18:15 Ur Random Sodium 111 mmol/L 03/20/17 15:35 Ur Random Potassium 34.2 mmol/L 03/30/17 21:46 Gastric Occult Blood Positive (NEGATIVE) H 03/15/17 05:21 C. difficile Ag & Toxin Negative (NEGATIVE) 03/25/17 09:28 H.influenzae Type B Ag Negative (NEGATIVE) 03/22/17 09:31 Ur L.pneumophila Ag Negative (NEGATIVE) 03/22/17 09:31 Mycoplasma pneumon IgM Negative (NEGATIVE) 03/22/17 09:31 N.meningitidis ACY/W135 Negative (NEGATIVE) 03/22/17 09:31 N.meningi B/E.coli K1 Ag Negative (NEGATIVE) 03/22/17 09:31 Group B Strep Antigen Negative (NEGATIVE) 03/22/17 09:31 S. pneumoniae Antigen Negative (NEGATIVE) 03/22/17 09:31 Blood Type O POSITIVE 04/04/17 18:29 Antibody Screen Negative 04/04/17 18:29 - Hospital Course Hospital Course: Discharge Summary PMD:Denies Consults: Infectious Disease: Liset, Hematology/Onc: Dr. Quiros, Surgery: Dr. 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 Vomiting started on Tuesday and he noticed black color vomitus this morning. He is constipated and didn't have bowel movement last one week.Lately he is having frequent small BM .Denies fever ,denies abdominal pain.Lost about 10pounds last one year.Denies shortness of breath,denies chest pain.He denies abdominal distension. He states that his belly is always big.Used drink beer. In the ER CT abdomen and pelvis revealing left lower quadrant colonic hyperdense mass measuring 4.6 x 5.1 x 7.0 cm suspicious for colon cancer with partial or early colonic obstruction, omental infiltration, dilated fluid filled small bowel loops with air fluid level measuring 3.8 cm with mesenteric fluid with relative change in caliber of the small bowel in the midabdomen representing partial obstruction versus ileus or enteritis. large amount of stool in the colon with colonic wall thickening and left lower quadrant colonic mass representing nonspecific colitis or stool related colitis. There are bilateral numerous pulmonary nodules representing hematogenous spread of infection/fungal infection or metastasis. There are small areas of ill-defined patchy parenchymal infiltrates and confluent consolidation within both the lungs. Left prevascular paratracheal and right lung and left hilar lymph nodes. Heterogeneous appearance to the liver with multiple ill-defined masses suspicious for hepatic metastasis versus hepatocellular carcinoma. Thick walled esophagus and moderate hiatal hernia. In the ER noted positive fecal occult blood test, Ng was inserted revealing coffee ground emesis. His hemoglbin is 15 PMH -Glaucoma PSH.Exploratory lap 20years ago,left hip surgery,dvt and IVC filter,skin graft Allergies mentioned PCN in the childhood but has got pcn adult roth with no reaction Social live with , unemployed, denies alcohol, drugs, smoking Meds for glaucoma/get from [facility] Family history-father DM.no malignancy SUMMARY OF COURSE: This is a 62 year old male who came to the hospital on 03/15- with abdominal pain, weight loss, no BMs, and also dark emesis. He was determined to have a a 4.6 x 5 x 7 cm mass that was causing obstruction. This same imaging also suggested a metastatic spread of a cancer to lungs and liver as well. He then underwent a flexible sigmoidscopy on 03/16 and the biopsy showed adenocarcinoma. He underwent an exploratory laparotomy and left hemicolectomy and creation of a colostomy. Patient and family are aware of the adenocarcinoma. The patient was found to be anemic and we transfused 1 unit of PRBC's. While admitted the patient had a port placement done as well. The patient was seen by physical therapy who recommended subacute rehab. The patient was approved and discharged to subacute rehab along with the following instructions below. Imaging: CXR : bilateral pulmonary nodules 2 to 4mm, consider chest ct, and mild central pulmonary congestion Abdomen/pelvist ct: lower quadrant hypodense lesions 4.6x5.1x7cm. suspicious for colon cancer or early colonic obstruction, paracolonic mesenteric respresenting omental infiltration, dilated bowel loops, numerous pulmonary nodules, Head CT: negative Renal ultrasound: negative. within normal limits Duplex u/s: negative Chest ct: widespread metastasis, central necosis in the enlarged lymph nodes, s/ p left hemicolectomy, dilated small bowel loops, Flouroscopy: placement of rigtht IJ port catheter (See imaging reports for full description) Discharge instructions: 1.He a prescription in the chart for CBC on Apr 07 and to follow his leukocytosis to make sure it is not increasing once he is on oral antibiotics. If it does trend up, he may need further monitoring. 2.He is to follow up with his Surgeon Dr. Steinberg on 04/12/17 in his office for wound evaluation and possible drain removal. 3. Patient to be transferred to [facility] located at [facility]. 4.Patient will follow up with Dr. Quiros after being cleared for treatment as an outpatient. 5. Advised patient to return to hospital for any new or worsening symptoms. Discharge Medications: 1. Levaquin 500mg PO Daily, #5 2. Diflucan 100mg PO Daily, #5 Discharge Exam - Head Exam Head Exam: ATRAUMATIC, NORMAL INSPECTION, NORMOCEPHALIC - Eye Exam Eye Exam: PERRL Pupil Exam: NORMAL ACCOMODATION, PERRL. absent: Irregular, Unequal - ENT Exam ENT Exam: Mucous Membranes Moist, Normal Oropharynx - Respiratory Exam Respiratory Exam: Clear to PA & Lateral, NORMAL BREATHING PATTERN, UNREMARKABLE. absent: Rales, Rhonchi - Cardiovascular Exam Cardiovascular Exam: REGULAR RHYTHM, RRR, +S1, +S2. absent: Rubs - GI/Abdominal Exam GI & Abdominal Exam: Normal Bowel Sounds, Unremarkable. absent: Tenderness Additional comments: Colostomy in place. - Extremities Exam Extremities exam: pedal edema - Back Exam Back exam: NORMAL INSPECTION. absent: CVA tenderness (L), CVA tenderness (R), paraspinal tenderness - Neurological Exam Neurological exam: Alert, CN II-XII Intact, Oriented x3 - Psychiatric Exam Psychiatric exam: Normal Affect, Normal Mood - Skin Skin Exam: Dry, Intact Discharge Plan - Discharge Medications Prescriptions: Fluconazole [Diflucan] 100 mg PO DAILY #5 tab levoFLOXacin [Levaquin] 500 mg PO DAILY #5 tab - Follow Up Plan Condition: CRITICAL Disposition: REHAB FACILITY/REHAB UNIT Instructions: Fluconazole (By mouth), Levofloxacin (By mouth), Colostomy Care ( DC), Exploratory Laparoscopy (DC), Colectomy (DC), Laparoscopic Bowel Resection (DC), Colostomy Creation (DC), Bowel Obstruction (DC) Additional Instructions: there is a prescription in the chart for CBC on Apr 07 and to follow his leukocytosis to make sure it is not increasing once he is on oral antibiotics. If it does trend up, he may need further monitoring. He is to follow up with his Surgeon Dr. Steinberg on 04/12/17 in his office for wound evaluation and possible drain removal. Referrals: Chip Quiros MD [Staff Provider] - Trace Steinberg MD [Staff Provider] - <Art Coronel - Last Filed: 04/07/17 12:26> Provider - Provider Date of Admission: 03/15/17 06:29 Attending physician: Jose Ledezma MD Hospital Course - Lab Results Lab Results: Micro Results 03/28/17 09:08 Abdominal Fluid Gram Stain - Final 03/28/17 09:08 Abdominal Fluid Body Fluid Culture - Final No growth. 03/27/17 05:30 Blood-Venous Blood Culture - Final NO GROWTH AFTER 5 DAYS 03/27/17 05:30 Blood-Venous Gram Stain - Final TEST NOT PERFORMED 03/27/17 05:00 Blood-Venous Blood Culture - Final NO GROWTH AFTER 5 DAYS 03/27/17 05:00 Blood-Venous Gram Stain - Final TEST NOT PERFORMED 03/28/17 11:24 Other: Please Indicate Gram Stain - Final 03/28/17 11:24 Other: Please Indicate Wound Culture - Final Corrie Albicans 03/28/17 19:23 Naris MRSA Culture - Final MRSA NOT DETECTED 03/23/17 09:54 Urine Urine Culture - Final No Growth (<1,000 CFU/ML) 03/22/17 09:31 Trachasp Gram Stain - Final 03/22/17 09:31 Trachasp Sputum Culture - Final Yeast Species 03/19/17 00:15 Blood-Venous Blood Culture - Final NO GROWTH AFTER 5 DAYS 03/19/17 00:15 Blood-Venous Gram Stain - Final TEST NOT PERFORMED 03/19/17 00:30 Blood-Venous Blood Culture - Final NO GROWTH AFTER 5 DAYS 03/19/17 00:30 Blood-Venous Gram Stain - Final TEST NOT PERFORMED 03/19/17 15:25 Trachasp Gram Stain - Final 03/19/17 15:25 Trachasp Sputum Culture - Final NORMAL ORAL ALBERT 03/15/17 09:44 Blood Blood Culture - Final NO GROWTH AFTER 5 DAYS 03/15/17 09:44 Blood Gram Stain - Final TEST NOT PERFORMED 03/15/17 09:44 Blood Blood Culture - Final NO GROWTH AFTER 5 DAYS 03/15/17 09:44 Blood Gram Stain - Final TEST NOT PERFORMED 03/17/17 11:58 Urine,Clean Catch Urine Culture - Final No Growth (<1,000 CFU/ML) 03/15/17 08:39 Naris MRSA Culture (Admit) - Final MRSA NOT DETECTED Most Recent Lab Values WBC 13.8 K/uL (4.8-10.8) H 04/06/17 11:45 RBC 3.63 Mil/uL (4.40-5.90) L 04/06/17 11:45 Hgb 9.4 g/dL (12.0-18.0) L 04/06/17 11:45 Hct 29.0 % (35.0-51.0) L 04/06/17 11:45 MCV 79.9 fL (80.0-94.0) L 04/06/17 11:45 MCH 26.0 pg (27.0-31.0) L 04/06/17 11:45 MCHC 32.6 g/dL (33.0-37.0) L 04/06/17 11:45 RDW 21.9 % (11.5-14.5) H 04/06/17 11:45 Plt Count 164 K/uL (130-400) 04/06/17 11:45 MPV 8.1 fL (7.2-11.7) 04/06/17 11:45 Neut % (Auto) 69.4 % (50.0-75.0) 04/05/17 06:42 Lymph % (Auto) 11.1 % (20.0-40.0) L 04/05/17 06:42 Barrow % (Auto) 10.3 % (0.0-10.0) H 04/05/17 06:42 Eos % (Auto) 8.1 % (0.0-4.0) H 04/05/17 06:42 Baso % (Auto) 1.1 % (0.0-2.0) 04/05/17 06:42 Neut # (Auto) 9.1 K/uL (1.8-7.0) H 04/05/17 06:42 Lymph # (Auto) 1.4 K/uL (1.0-4.3) 04/05/17 06:42 Barrow # (Auto) 1.3 K/uL (0.0-0.8) H 04/05/17 06:42 Eos # (Auto) 1.1 K/uL (0.0-0.7) H 04/05/17 06:42 Baso # (Auto) 0.1 K/uL (0.0-0.2) 04/05/17 06:42 Neutrophils % (Manual) 71 % (50-75) 04/03/17 11:38 Band Neutrophils % 6 % (0-2) H 04/03/17 11:38 Metamyelocytes % 1 % (0-0) H 03/24/17 06:36 Lymphocytes % (Manual) 8 % (20-40) L 04/03/17 11:38 Myelocytes % 1 % (0-0) H 03/23/17 05:48 Reactive Lymphs % 1 % (0-0) H 03/31/17 11:13 Monocytes % (Manual) 11 % (0-10) H 04/03/17 11:38 Eosinophils % (Manual) 4 % (0-4) 04/03/17 11:38 Basophils % (Manual) 1 % (0-2) 04/02/17 11:45 Toxic Granulation Present 03/26/17 06:11 Plt Clumps, EDTA Present 03/25/17 06:28 Giant Platelets Present 03/24/17 06:36 Platelet Estimate Normal (NORMAL) 04/03/17 11:38 Large Platelets Present 04/03/17 11:38 Basophilic Stippling Slight 03/24/17 06:36 Polychromasia Slight 04/02/17 11:45 Hypochromasia (manual) Slight 04/03/17 11:38 Poikilocytosis (manual Slight 03/31/17 11:13 Anisocytosis (manual) Moderate 04/03/17 11:38 Microcytosis (manual) Slight 04/03/17 11:38 Schistocytes Slight 03/22/17 06:27 Target Cells Slight 04/03/17 11:38 Tear Drop Cells Slight 04/03/17 11:38 Ovalocytes Slight 04/03/17 11:38 Retic Count 0.9 % (0.5-1.5) 03/23/17 05:48 PT 19.4 SECONDS (9.7-12.2) H D 03/17/17 20:14 INR 1.7 D 03/17/17 20:14 APTT 35 SECONDS (21-34) H D 03/17/17 20:14 Puncture Site L r 03/23/17 05:40 pCO2 31 mm/Hg (35-45) L 03/23/17 05:40 pO2 141 mm/Hg (80-100) H 03/23/17 05:40 HCO3 23.5 mmol/L (21-28) 03/23/17 05:40 ABG pH 7.45 (7.35-7.45) 03/23/17 05:40 ABG Total CO2 22.5 mmol/L (22-28) 03/23/17 05:40 ABG O2 Saturation 99.5 % (95-98) H 03/23/17 05:40 ABG Base Excess -1.9 mmol/L (-2.0-3.0) 03/23/17 05:40 ABG Hemoglobin 10.2 g/dL (11.7-17.4) L 03/23/17 05:40 ABG Carboxyhemoglobin 1.6 % (0.5-1.5) H 03/23/17 05:40 POC ABG HHb (Measured) 0.5 % (0.0-5.0) 03/23/17 05:40 ABG Methemoglobin 1.1 % (0.0-3.0) 03/23/17 05:40 Satinder Test Pos 03/23/17 05:40 ABG Potassium 4.0 mmol/L (3.6-5.2) 03/17/17 15:50 VBG pH 7.43 (7.32-7.43) 03/15/17 05:35 VBG pCO2 45 mmHg (40-60) 03/15/17 05:35 VBG HCO3 27.3 mmol/L 03/15/17 05:35 VBG Total CO2 31.3 mmol/L (22-28) H 03/15/17 05:35 VBG O2 Sat (Calc) 46.8 % (40-65) 03/15/17 05:35 VBG Base Excess 4.8 mmol/L (0.0-2.0) H 03/15/17 05:35 VBG Potassium 4.3 mmol/L (3.6-5.2) 03/15/17 05:35 A-a O2 Difference 105.0 mm/Hg 03/23/17 05:40 Respiratory Index 0.7 03/23/17 05:40 Hgb O2 Saturation 96.7 % (95.0-98.0) 03/23/17 05:40 Sodium 128.0 mmol/l (132-148) L 03/17/17 15:50 Chloride 101.0 mmol/L (98-107) 03/17/17 15:50 Glucose 115 mg/dl (75-110) H 03/17/17 15:50 Lactate 1.7 mmol/L (0.7-2.1) 03/17/17 15:50 Vent Mode Cpap 03/23/17 05:40 Mechanical Rate 12 03/21/17 05:23 FiO2 40.0 % 03/23/17 05:40 Tidal Volume 500 03/21/17 05:23 PEEP 8 03/21/17 05:23 Pressure Support 10 03/23/17 05:40 CPAP 5 03/23/17 05:40 Crit Value Called To programming internshipraghavendra gallagher 03/17/17 14:25 Crit Value Called By Agustín boggs rcp 03/17/17 14:25 Crit Value Read Back Y 03/17/17 14:25 Blood Gas Notified Time 1435 03/17/17 14:25 Sodium 137 mmol/L (132-148) 04/06/17 11:45 Potassium 3.8 mmol/L (3.6-5.2) 04/06/17 11:45 Chloride 101 mmol/L (98-107) 04/06/17 11:45 Carbon Dioxide 27 mmol/L (22-30) 04/06/17 11:45 Anion Gap 13 (10-20) 04/06/17 11:45 BUN 16 mg/dL (9-20) 04/06/17 11:45 Creatinine 1.0 mg/dL (0.8-1.5) 04/06/17 11:45 Est GFR ( Amer) > 60 04/06/17 11:45 Est GFR (Non-Af Amer) > 60 04/06/17 11:45 Random Glucose 113 mg/dL (75-110) H 04/06/17 11:45 Lactic Acid 1.3 mmol/L (0.7-2.1) 03/18/17 07:00 Calcium 7.8 mg/dl (8.6-10.4) L 04/06/17 11:45 Phosphorus 3.3 mg/dL (2.5-4.5) 04/04/17 06:54 Magnesium 1.7 mg/dL (1.6-2.3) 04/06/17 11:45 Ferritin 362.0 ng/mL 03/23/17 05:48 Total Bilirubin 0.7 mg/dL (0.2-1.3) 04/06/17 11:45 AST 64 U/L (17-59) H 04/06/17 11:45 ALT 34 U/L (21-72) 04/06/17 11:45 Alkaline Phosphatase 320 U/L (38-126) H 04/06/17 11:45 Total Protein 7.5 g/dL (6.3-8.3) 04/06/17 11:45 Albumin 3.2 g/dL (3.5-5.0) L 04/06/17 11:45 Globulin 4.3 gm/dL (2.2-3.9) H 04/06/17 11:45 Albumin/Globulin Ratio 0.7 (1.0-2.1) L 04/06/17 11:45 Carcinoembryonic Ag 2590.0 ng/mL (0-3.0) H 03/15/17 18:45 Vitamin B12 > 1000 pg/mL (239-931) H 03/23/17 05:48 Folate 8.8 ng/mL 03/23/17 05:48 TSH 3rd Generation 1.23 mIU/L (0.46-4.68) 03/20/17 06:40 Procalcitonin 0.57 NG/ML (0.19-0.49) H 04/06/17 11:45 Arterial Blood Potassium 4.0 mmol/L (3.6-5.2) 03/17/17 15:50 Venous Blood Potassium 4.3 mmol/L (3.6-5.2) 03/15/17 05:35 Urine Color Darlyn (YELLOW) 03/16/17 18:15 Urine Clarity Clear (Clear) 03/16/17 18:15 Urine pH 5.0 (5.0-8.0) 03/16/17 18:15 Ur Specific [place] 1.031 (1.003-1.030) H 03/16/17 18:15 Urine Protein 1+ mg/dL (NEGATIVE) H 03/16/17 18:15 Urine Glucose (UA) Normal mg/dL (Normal) 03/16/17 18:15 Urine Ketones 1+ mg/dL (NEGATIVE) H 03/16/17 18:15 Urine Blood Negative (NEGATIVE) 03/16/17 18:15 Urine Nitrate Negative (NEGATIVE) 03/16/17 18:15 Urine Bilirubin Negative (NEGATIVE) 03/16/17 18:15 Urine Urobilinogen 4.0 mg/dL (0.2-1.0) 03/16/17 18:15 Ur Leukocyte Esterase 2+ Linda/uL (Negative) H 03/16/17 18:15 Urine WBC (Auto) 14 /hpf (0-5) H 03/16/17 18:15 Urine RBC (Auto) 1 /hpf (0-3) 03/16/17 18:15 Ur Squamous Epith Cells 1 /hpf (0-5) 03/16/17 18:15 Ur Transition Epith Cell < 1 /hpf (0-3) 03/16/17 18:15 Urine Bacteria Few (<OCC) H 03/16/17 18:15 Ur Random Sodium 111 mmol/L 03/20/17 15:35 Ur Random Potassium 34.2 mmol/L 03/30/17 21:46 Gastric Occult Blood Positive (NEGATIVE) H 03/15/17 05:21 C. difficile Ag & Toxin Negative (NEGATIVE) 03/25/17 09:28 H.influenzae Type B Ag Negative (NEGATIVE) 03/22/17 09:31 Ur L.pneumophila Ag Negative (NEGATIVE) 03/22/17 09:31 Mycoplasma pneumon IgM Negative (NEGATIVE) 03/22/17 09:31 N.meningitidis ACY/W135 Negative (NEGATIVE) 03/22/17 09:31 N.meningi B/E.coli K1 Ag Negative (NEGATIVE) 03/22/17 09:31 Group B Strep Antigen Negative (NEGATIVE) 03/22/17 09:31 S. pneumoniae Antigen Negative (NEGATIVE) 03/22/17 09:31 Blood Type O POSITIVE 04/04/17 18:29 Antibody Screen Negative 04/04/17 18:29 Attending/Attestation - Attestation I have personally seen and examined this patient.: Yes I have fully participated in the care of the patient.: Yes I have reviewed all pertinent clinical information, including history, physical exam and plan: Yes Notes (Text): 04/07/17 12:26 Medical attending: Patient was seen and examined by me, we saw together the patient with the medical sales representative. I reviewed the above note by medical sales representative and agree This is a 62-year-old gentleman who initially came to the emergency room on 03/15 with the chief complaint of lower abdominal pain and CT imaging done in the emergency room showed a very suspicious for by 4 x 5 x 7 centimeter area of the colon that was very suspicious for obstruction. He underwent a flexible sigmoidoscopy on 03/16, a biopsy was done at that time and this showed adenocarcinoma. On 03/18 the patient underwent surgery. He had an exploratory laparotomy with left hemicolectomy. A colostomy was created and he also had a drain placed as well. The CT scan of the abdomen and pelvis showed that he also had metastatic spread to the lungs and liver. While here he has been seen and evaluated by hematology oncology. Following the surgery he remained in the ICU. This day was complicated with pneumonia. He had a very elevated white cell count requiring multiple days of IV antibiotics. While in the ICU he had acute kidney injury. This was resolved. He was eventually extubated successful and after several more days on IV abx was moved to the medical floors. Biosy results from both the colectomy and flexible sigmoidscopy showed adenocarcinoma. He has placement of a port a cath here on 04/04/17 He's been participating with physical therapy as well, he will be moving to [facility] for further rehab. The patient will need to follow up with surgery and hematology / oncology in the future. thank you Art Coronel
[2017-04-06] MEDS ORDERED: Influenza Vaccine 60 mcg/0.5 mL SYR (4YR UP) IM ONE (16:30)
[2017-04-06] MEDS ORDERED: Pneumococcal 23-Valent Vaccine IM ONE (16:30)
[2017-04-06 17:35] VITALS: BP 134/83; PULSE 110; TEMP 98.6; O2SAT 97
== END 2017-04-06 19:55 | DRG 329 ==
LOC: C.ER 04:06 → C.9E 06:29 → C.9I 06:42 → C.3T 03-28 20:05
PROVIDERS: ADMIT Internal Medicine; ATTEND Internal Medicine
PROC: 0DBN8ZX Excision of Sigmoid Colon, Via Natural or Artificial Opening Endoscopic, Diagnostic (ICD-10-PCS; 2017-03-16)
PROC: 0D1N0Z4 Bypass Sigmoid Colon to Cutaneous, Open Approach (ICD-10-PCS; 2017-03-17)
PROC: 0DNE0ZZ Release Large Intestine, Open Approach (ICD-10-PCS; 2017-03-17)
PROC: 0DTU0ZZ Resection of Omentum, Open Approach (ICD-10-PCS; 2017-03-17)
PROC: 0FB00ZX Excision of Liver, Open Approach, Diagnostic (ICD-10-PCS; 2017-03-17)
PROC: 5A1955Z Respiratory Ventilation, Greater than 96 Consecutive Hours (ICD-10-PCS; 2017-03-17)
PROC: 0HQ7XZZ Repair Abdomen Skin, External Approach (ICD-10-PCS; 2017-03-17)
PROC: 30233N1 Transfusion of Nonautologous Red Blood Cells into Peripheral Vein, Percutaneous Approach (ICD-10-PCS; 2017-03-17)
PROC: 0BH17EZ Insertion of Endotracheal Airway into Trachea, Via Natural or Artificial Opening (ICD-10-PCS; 2017-03-17)
PROC: 0DTG0ZZ Resection of Left Large Intestine, Open Approach (ICD-10-PCS; principal; 2017-03-17 13:00)
PROC: 02HV33Z Insertion of Infusion Device into Superior Vena Cava, Percutaneous Approach (ICD-10-PCS; 2017-04-04)
PROC: B548ZZA Ultrasonography of Superior Vena Cava, Guidance (ICD-10-PCS; 2017-04-04)
DX: C18.7 Malignant neoplasm of sigmoid colon (principal); A41.9 Sepsis, unspecified organism; N17.0 Acute kidney failure with tubular necrosis; J69.0 Pneumonitis due to inhalation of food and vomit; J95.821 Acute postprocedural respiratory failure; Z99.11 Dependence on respirator [ventilator] status; K56.691 Other complete intestinal obstruction; C78.01 Secondary malignant neoplasm of right lung; C78.02 Secondary malignant neoplasm of left lung; C78.1 Secondary malignant neoplasm of mediastinum; C78.7 Secondary malignant neoplasm of liver and intrahepatic bile duct; E87.1 Hypo-osmolality and hyponatremia; K91.89 Other postprocedural complications and disorders of digestive system; D63.8 Anemia in other chronic diseases classified elsewhere; E86.0 Dehydration; E87.6 Hypokalemia; F43.23 Adjustment disorder with mixed anxiety and depressed mood; H40.9 Unspecified glaucoma; K64.4 Residual hemorrhoidal skin tags; K64.8 Other hemorrhoids; K66.0 Peritoneal adhesions (postprocedural) (postinfection); Z51.5 Encounter for palliative care; Z83.3 Family history of diabetes mellitus; Z87.891 Personal history of nicotine dependence

== ENCOUNTER 2017-08-10 15:11 | Emergency (ER) | payer OTHER ==
[2017-08-10 15:22] VITALS: BMI 23.6
[2017-08-10 15:28] VITALS: TEMP 98.6; O2SAT 98
--- NOTE | 2017-08-10 16:32 | C.PDOC ---
History Of Present Illness 62 years old present to ED for complaints of bleeding from inferior aspect of stoma when changing his colostomy bag today. Patient has Hx of stage IV Colon CA with mets to liver and lungs. Patient is currently getting chemotherapy with Dr. Quiros. Patient had colectomy done in February [address] Steinberg. Patient denies abdominal pain, vomiting/diarrhea, fever, weakness, SOB, bleding from elsewhere. He has no current physical complaints. Time Seen by Provider: 08/10/17 15:29 Chief Complaint (Nursing): GI Problem History Per: Patient History/Exam Limitations: no limitations Onset/Duration Of Symptoms: Hrs Current Symptoms Are (Timing): Better Severity: Mild Radiation Of Pain To:: None Associated Symptoms: denies: Fever, Chills, Nausea, Vomiting, Diarrhea Exacerbating Factors: None Alleviating Factors: None Last Bowel Movement: Today Past Medical History Reviewed: Historical Data, Nursing Documentation, Vital Signs Vital Signs: Last Vital Signs Temp 98.6 F 08/10/17 15:22 Pulse 89 08/10/17 17:24 Resp 18 08/10/17 17:24 BP 129/86 08/10/17 17:24 Pulse Ox 98 08/10/17 17:24 - Medical History PMH: Depression, Malignancy (metastatic colon CA stage IV) Other Surgeries: colectomy - [facility] (03/15/17) BYPASS SIGMOID COLON TO CUTANEOUS, OPEN APPROACH (03/15/17) EXCISION OF LIVER, OPEN APPROACH, DIAGNOSTIC (03/15/17) EXCISION OF SIGMOID COLON, ENDO, DIAGN (03/15/17) INSERTION OF ENDOTRACHEAL AIRWAY INTO TRACHEA, VIA OPENING (03/15/17) INSERTION OF INFUSION DEV INTO SUP VENA CAVA, PERC APPROACH (03/15/17) RELEASE LARGE INTESTINE, OPEN APPROACH (03/15/17) REPAIR ABDOMEN SKIN, EXTERNAL APPROACH (03/15/17) RESECTION OF LEFT LARGE INTESTINE, OPEN APPROACH (03/15/17) RESPIRATORY VENTILATION, GREATER THAN 96 CONSECUTIVE HOURS (03/15/17) TRANSFUSE NONAUT RED BLOOD CELLS IN PERIPH VEIN, PERC (03/15/17) ULTRASONOGRAPHY OF SUPERIOR VENA CAVA, GUIDANCE (03/15/17) Family History: States: No Known Family Hx - Social History Hx Alcohol Use: No Hx Substance Use: No - Immunization History Hx Tetanus Toxoid Vaccination: No Hx Influenza Vaccination: No Hx Pneumococcal Vaccination: No Review Of Systems Constitutional: Positive for: Other. Negative for: Fever, Chills Gastrointestinal: Positive for: Other (Bleeding from inferior aspect of stoma ) . Negative for: Nausea, Vomiting, Diarrhea Skin: Negative for: Rash Neurological: Negative for: Weakness, Numbness Physical Exam - Physical Exam Appears: Well, Non-toxic, No Acute Distress, Chronically Ill, Other ( Comfortable ) Skin: Normal Color, Warm, Dry Eye(s): bilateral: Normal Inspection Ear(s): Bilateral: Normal Oral Mucosa: Moist Neck: Supple Cardiovascular: Rhythm Regular Respiratory: Normal Breath Sounds, No Decreased Breath Sounds, No Rales, No Rhonchi, No Wheezing Gastrointestinal/Abdominal: Soft, No Tenderness, Other (Large midline well healed scar; left sided periumbilical colostomy; yellow color soft stool in bag ; mild bleeding from inferior aspect of stoma. ) Extremity: Normal ROM, No Deformity Extremity: Bilateral: Atraumatic, Normal Color And Temperature, Normal ROM Neurological/Psych: Oriented x3 Gait: Steady ED Course And Treatment O2 Sat by Pulse Oximetry: 98 (RA) Pulse Ox Interpretation: Normal Progress Note: Patient states he called his surgeon and was instructed to come to ED for evaluation. Patient evaluated by vice president of manufacturing who discussed patient with Dr. Steinberg. Bleeding currently resolved, patient instructed to follow up with him in the office. Patient is comfortable with plan of care, and understands he should return to ED if symptoms worsen/return. Reevaluation Time: 17:15 Reassessment Condition: Improved Disposition Counseled Patient/Family Regarding: Diagnosis, Need For Followup - Disposition Referrals: Trace Steinberg MD [Staff Provider] - Disposition: HOME/ ROUTINE Disposition Time: 17:15 Condition: STABLE Additional Instructions: FOLLOW UP WITH YOUR SURGEON IN THE OFFICE WITHIN 1 WEEK RETURN TO ER IF YOUR SYMPTOMS RETURN/WORSEN Instructions: Colostomy Care Forms: [facility] (Slovak), General Discharge Instructions Print Language: NORWEGIAN - Clinical Impression Clinical Impression: Bleeding from colostomy stoma - Scribe Statement The provider has reviewed the documentation as recorded by the Sharaibe Chante Farley All medical record entries made by the Sharaibjosé manuel were at my direction and personally dictated by me. I have reviewed the chart and agree that the record accurately reflects my personal performance of the history, physical exam, medical decision making, and the department course for this patient. I have also personally directed, reviewed, and agree with the discharge instructions and disposition.
[2017-08-10 17:25] VITALS: BP 129/86; PULSE 89; RESP 18
--- NOTE | 2017-08-10 17:48 | CP.PCM.CON ---
<Ulices Hernandez - Last Filed: 08/10/17 17:43> History of Present Illness - History of Present Illness History of Present Illness: General Surgery Consult note for Dr. Steinberg This is a 62M with stage 4 colon CA s/p colostomy 4 months ago. He reports that he saw blood from the lower aspect of his stoma at home so he called his doctor who advised him to go to the ED. He denies any pain, nausea vomiting trauma or any associated signs and symptoms he reports normal output from his stoma. At the time of my exam there was no more blood. He described it as spotting. PMH: Glaucoma PSH: Exploratory lap 20years ago,left hip surgery,dvt and IVC filter,skin graft , colectomy ALL: PCN in the childhood but has got pcn adult roth with no reaction Social: live with , unemployed, denies alcohol, drugs, smoking Review of Systems - Review of Systems All systems: reviewed and no additional remarkable complaints except - Constitutional Constitutional: absent: Anorexia, Chills - EENT Eyes: absent: Blurred Vision, Change in Vision Ears: absent: Ear Discharge, Ear Pain - Cardiovascular Cardiovascular: absent: Chest Pain, Dyspnea - Respiratory Respiratory: absent: Dyspnea, Chest Congestion - Gastrointestinal Gastrointestinal: As Per HPI. absent: Abdominal Pain, Bloating, Loose Stools, Nausea - Genitourinary Genitourinary: absent: Difficulty Urinating, Dysuria Past Patient History - Tetanus Immunizations Tetanus Immunization: Unknown - Past Medical History & Family History Past Medical History?: Yes - Past Social History Smoking Status: Never Smoked - CARDIAC Hx Cardiac Disorders: No - PULMONARY Hx Respiratory Disorders: No - NEUROLOGICAL Hx Neurological Disorder: No - HEENT Hx HEENT Problems: Yes Hx Glaucoma: Yes - RENAL Hx Chronic Kidney Disease: No - ENDOCRINE/METABOLIC Hx Endocrine Disorders: No - HEMATOLOGICAL/ONCOLOGICAL Hx Blood Disorders: No - INTEGUMENTARY Hx Dermatological Problems: No - MUSCULOSKELETAL/RHEUMATOLOGICAL Hx Falls: Yes (work accident) - GASTROINTESTINAL Hx Gastrointestinal Disorders: Yes Hx Constipation: Yes Other/Comment: Colon CA - GENITOURINARY/GYNECOLOGICAL Hx Genitourinary Disorders: No - PSYCHIATRIC Hx Depression: Yes Hx Substance Use: No - SURGICAL HISTORY Hx Surgeries: Yes (SEE COMMENT) Hx Orthopedic Surgery: Yes (BILAT WRIST, right hip surgery s/p work accident) Other/Comment: left knee degloving, exploratory lap s/p work accident. Colon resection. - ANESTHESIA Hx Anesthesia: Yes Hx Anesthesia Reactions: No Hx Malignant Hyperthermia: No Meds Allergies/Adverse Reactions: Allergies Allergy/AdvReac Type Severity Reaction Status Date / Time Penicillins Allergy RASH Verified 08/10/17 15:21 Physical Exam - Constitutional Appears: Non-toxic, No Acute Distress - Head Exam Head Exam: ATRAUMATIC, NORMOCEPHALIC - Eye Exam Eye Exam: EOMI, Normal appearance - ENT Exam ENT Exam: Mucous Membranes Moist, Normal Exam - Respiratory Exam Respiratory Exam: NORMAL BREATHING PATTERN - Cardiovascular Exam Cardiovascular Exam: +S1, +S2 - GI/Abdominal Exam GI & Abdominal Exam: Soft. absent: Diminished Bowel Sounds, Distended, Firm, Guarding, Hernia Additional comments: Stoma pink and patent without any bleeding - Neurological Exam Neurological exam: Alert, Oriented x3 - Psychiatric Exam Psychiatric exam: Normal Affect, Normal Mood - Skin Skin Exam: Dry, Intact Results - Vital Signs Recent Vital Signs: Last Vital Signs Temp 98.6 F 08/10/17 15:22 Pulse 89 08/10/17 17:24 Resp 18 08/10/17 17:24 BP 129/86 08/10/17 17:24 Pulse Ox 98 08/10/17 17:24 Assessment & Plan - Assessment and Plan (Free Text) Assessment: 62M with healthy stoma clear for dc home followup with Dr. Maryan Hernandez PGY2 <Trace Steinberg - Last Filed: 08/13/17 00:28> Results - Vital Signs Recent Vital Signs: Last Vital Signs Temp 98.6 F 08/10/17 15:22 Pulse 89 08/10/17 17:24 Resp 18 08/10/17 17:24 BP 129/86 08/10/17 17:24 Pulse Ox 98 08/12/17 18:10 Attending/Attestation - Attestation I have fully participated in the care of the patient.: Yes I have reviewed all pertinent clinical information: Yes Notes (Text): Pt with Colostomy status with bleeding from colostomy Labs and radiology reviewed Ass: Colostomy status Plan: Pt can be DC home f.u as ot pt GI consult for Colonoscopy through stoma Plan d.w pt in detail Risk and benefit explained in detail.
== END 2017-08-10 17:25 | disposition home or self-care (01) ==
LOC: C.ER 15:11
DX: K94.01 Colostomy hemorrhage (principal)

== ENCOUNTER 2018-02-28 15:09 | Inpatient (IN) | payer OTHER ==
[2018-02-28 15:09] VITALS: BMI 23.6
[2018-02-28] MEDS ORDERED: Sodium Chloride 0.9% 1,000 ML IV STA ×2 (15:23→15:47)
--- NOTE | 2018-02-28 15:26 | C.PDOC ---
History Of Present Illness 63 yo male, PMHx Alzheimer's, dementia, colon cancer, s/p colectomy with colostomy. metastatic to liver and lungs, brought in by EMS with unresponsiveness, intubated. As per , patient was his normal self last night, but had been having cough and sputum production for a few days. This morning, patient would not respond. EMS was called, and upon arrival the patient was found to be hypoglycemic, dextrose administered but no improvement in response with agonal breathing, therefore intubated with ketamine and BEKAH. Additional ketamine given post-intubation. Full HPI and ROS unobtainable Time Seen by Provider: 02/28/18 15:16 History Per: Family () History/Exam Limitations: clinical condition Onset/Duration Of Symptoms: Days Additional History Per: EMS Past Medical History Reviewed: Historical Data, Nursing Documentation, Vital Signs - Medical History PMH: Alzheimer's Disease, Dementia, Depression, Malignancy (metastatic colon CA stage IV) Denies: Chronic Kidney Disease Other PMH: Colon cancer, metatastatic to liver and lungs. Other Surgeries: Colectomy, colostomy - [facility] (03/15/17) BYPASS SIGMOID COLON TO CUTANEOUS, OPEN APPROACH (03/15/17) EXCISION OF LIVER, OPEN APPROACH, DIAGNOSTIC (03/15/17) EXCISION OF SIGMOID COLON, ENDO, DIAGN (03/15/17) INSERTION OF ENDOTRACHEAL AIRWAY INTO TRACHEA, VIA OPENING (03/15/17) INSERTION OF INFUSION DEV INTO SUP VENA CAVA, PERC APPROACH (03/15/17) RELEASE LARGE INTESTINE, OPEN APPROACH (03/15/17) REPAIR ABDOMEN SKIN, EXTERNAL APPROACH (03/15/17) RESECTION OF LEFT LARGE INTESTINE, OPEN APPROACH (03/15/17) RESPIRATORY VENTILATION, GREATER THAN 96 CONSECUTIVE HOURS (03/15/17) TRANSFUSE NONAUT RED BLOOD CELLS IN PERIPH VEIN, PERC (03/15/17) ULTRASONOGRAPHY OF SUPERIOR VENA CAVA, GUIDANCE (03/15/17) Family History: States: Unknown Family Hx - Social History Hx Alcohol Use: No Hx Substance Use: No - Immunization History Hx Tetanus Toxoid Vaccination: No Hx Influenza Vaccination: No Hx Pneumococcal Vaccination: No Review Of Systems Review Of Systems: ROS cannot be obtained secondary to pt's inabilty to answer questions. Physical Exam - Physical Exam Additional Physical Exam Comments: Constitutional: Ill-appearing elderly male. Intubated. Head: Normocephalic. Atraumatic. Eyes: Pupils constricted and reactive. ENT: Moist mucous membranes. Neck: Supple. Cardiovascular: Regular rate. Radial pulse 2+ bilaterally. Chest: Right-sided chest port. Respiratory: Bilateral breath sounds equal with BVM. GI: Soft. Nontender. Nondistended. Laparotomy scar. Left-sided colostomy bag. Back: No CVA tenderness. Musculoskeletal: No tenderness or swelling of extremities. Old scar present on left knee. Skin: No rash. ED Course And Treatment - Laboratory Results Result Diagrams: 02/28/18 15:37 02/28/18 15:37 Critical Care Time - Critical Care Note Total Time (in mins): 60 Comments: Patient required immediate attention upon arrival due to clinical condition. Complex decision making, multiple specialty consultations. Documented critical care: time excludes all time spent performing seperately billable procedures. Medical Decision Making Medical Decision Making: Plan: Bloodbank Type and Screen VBG Chemistry Hematology CXR NaCl IV Fluids Blood Culture Urine Culture Urinalysis EKG: NSR 90bpm. No ST elevation. Discussed with at bedside, who states that patient would not want CPR if his heart stopped. Patient's doctors: Surgeon - Dr. Steinberg Oncologist: Dr. Quiros PMD: Dr. Luis Antibiotics initiated. ICU consulted, accepted. Dr. Fatuma Menedz accepts to his service. Disposition - Disposition Disposition: HOSPITALIZED Disposition Time: 16:22 Condition: CRITICAL - Clinical Impression Clinical Impression: Respiratory failure, Pneumonia, Acute renal insufficiency, Transaminitis, Colon cancer metastasized to multiple sites - Scribe Statement The provider has reviewed the documentation as recorded by the Scribe (Aditya Sanchezqvi) Provider Attestation: All medical record entries made by the Scribe were at my direction and personall y dictated by me. I have reviewed the chart and agree that the record accurately reflects my personal performance of the history, physical exam, medical decision making, and the department course for this patient. I have also personally directed, reviewed, and agree with the discharge instructions and disposition.
[2018-02-28 15:42] LABS: VENOUS BLOOD GAS BASE EXCESS -5.2 mmol/L (0.0-2.0); VENOUS BLOOD GAS PCO2 65 mmHg (40-60); VENOUS BLOOD GAS PO2 38 mm/Hg (30-55); VENOUS BLOOD PH 7.18 (7.32-7.43)
[2018-02-28 15:46] LABS: BASO # 0.1 K/uL (0.0-0.2); BASO % 1.1 % (0.0-2.0); HEMOGLOBIN 9.6 g/dL (12.0-18.0); LYMPH # 0.6 K/uL (1.0-4.3); LYMPH % 5.1 % (20.0-40.0); MEAN CORPUSCULAR HEMOGLOBIN 26.4 pg (27.0-31.0); MEAN CORPUSCULAR HGB CONC 30.3 g/dL (33.0-37.0); MEAN PLATELET VOLUME 8.1 fL (7.2-11.7); MONO % 9.1 % (0.0-10.0); NEUT # 9.6 K/uL (1.8-7.0); NEUT % 84.7 % (50.0-75.0); PLATELET COUNT 155 K/uL (130-400); RBC 3.62 Mil/uL (4.40-5.90); RED CELL DISTRIBUTION WIDTH 21.1 % (11.5-14.5); WHITE BLOOD COUNT 11.3 K/uL (4.8-10.8)
[2018-02-28] MEDS ORDERED: Vancomycin 1 gm/NS 200 ml 1 GM/200 ML BAG IVPB STA (15:48)
[2018-02-28] MEDS ORDERED: Cefepime 1 GM in Sodium Chloride 0.9% 50 ML IVPB ONE (15:48)
[2018-02-28 15:49] LABS: INR 1.8; PROTHROMBIN TIME 19.3 SECONDS (9.7-12.2)
[2018-02-28 15:53] LABS: ALB/GLOB RATIO 0.6 (1.0-2.1); ALBUMIN 2.5 g/dL (3.5-5.0); CALCIUM 7.5 mg/dl (8.6-10.4)
[2018-02-28 16:02] LABS: BANDS 1 % (0-2); LYMPHOCYTE 2 % (20-40); MONOCYTE 6 % (0-10); NEUTROPHIL 91 % (50-75); PLATELET ESTIMATE NORMAL (NORMAL); TOTAL CELLS COUNTED 100
[2018-02-28 16:03] LABS: ANISOCYTOSIS MODERATE; HYPOCHROMIC SLIGHT; POLYCHROMIC SLIGHT
[2018-02-28 16:05] LABS: CK-MB 1.22 ng/mL (0.0-3.38); TROPONIN I 0.021 ng/mL (0.00-0.120)
--- NOTE | 2018-02-28 16:16 | RAD ---
HISTORY: ams COMPARISON: Chest x-ray performed 03/27/17, CT chest, abdomen, and pelvis with IV contrast performed 11/24/17 TECHNIQUE: Chest, one view. FINDINGS: Right-sided MediPort extends expected location of the SVC. Endotracheal tube terminates approximately 4.1 cm above the jhoan. LUNGS: Interval progression of widespread pulmonary metastatic disease. Superimposed infection not excluded. Correlate clinically. PLEURA: No significant pleural effusion identified. No definite pneumothorax . CARDIOVASCULAR: Heart size appears within normal limits. No significant atherosclerotic calcification present. OSSEOUS STRUCTURES: No acute osseous abnormality identified. VISUALIZED UPPER ABDOMEN: Unremarkable. OTHER FINDINGS: None. IMPRESSION: Continued interval progression of widespread pulmonary metastatic disease. Superimposed infection cannot be excluded. Correlate clinically. Endotracheal tube. Right-sided MediPort.
[2018-02-28 16:33] LABS: URINE BACTERIA RARE (<OCC); URINE BILIRUBIN 1+ (NEGATIVE); URINE BLOOD NEGATIVE (NEGATIVE); URINE CLARITY Hazy (Clear); URINE COLOR Amber (YELLOW); URINE GLUCOSE (UA) NORMAL (Normal); URINE LEUKOCYTE ESTERASE NEG Leu/uL (Negative); URINE PROTEIN 1+ mg/dL (NEGATIVE)
--- NOTE | 2018-02-28 16:38 | CP.PCM.CON ---
History of Present Illness - History of Present Illness History of Present Illness: 63 y/o male with pmx of back injury fall, chronic weakness secondary to fall, abdominal surgery, s/p ivc filter, h/o glaucoma, h/o skin grafting, patient has chronic constipation admitted [facility] after being found unconscious at home. Patient was intubated in field. During examination, patient intubated and sedated. limited ROS [from previous chart records] PMH as above Allergies mentioned PCN in the childhood but has got pcn adult roth with no reaction Social live with , unemployed, denies alcohol, drugs, smoking Meds for glaucoma Family history not contributory. Review of Systems - Review of Systems Systems not reviewed;Unavailable: Intubated Past Patient History - Tetanus Immunizations Tetanus Immunization: Unknown - Past Medical History & Family History Past Medical History?: Yes - Past Social History Smoking Status: Never Smoked - CARDIAC Hx Cardiac Disorders: No - PULMONARY Hx Respiratory Disorders: No - NEUROLOGICAL Hx Alzheimer's Disease: Yes Hx Dementia: Yes - HEENT Hx HEENT Problems: Yes Hx Glaucoma: Yes - RENAL Hx Chronic Kidney Disease: No - ENDOCRINE/METABOLIC Hx Endocrine Disorders: No - HEMATOLOGICAL/ONCOLOGICAL Hx Blood Disorders: No - INTEGUMENTARY Hx Dermatological Problems: No - MUSCULOSKELETAL/RHEUMATOLOGICAL Hx Falls: Yes (work accident) - GASTROINTESTINAL Hx Gastrointestinal Disorders: Yes Hx Constipation: Yes Other/Comment: Colon CA; colostomy - GENITOURINARY/GYNECOLOGICAL Hx Genitourinary Disorders: No - PSYCHIATRIC Hx Depression: Yes Hx Substance Use: No - SURGICAL HISTORY Hx Surgeries: Yes (SEE COMMENT) Hx Orthopedic Surgery: Yes (BILAT WRIST, right hip surgery s/p work accident) Other/Comment: left knee degloving, exploratory lap s/p work accident. Colon resection. - ANESTHESIA Hx Anesthesia: Yes Hx Anesthesia Reactions: No Hx Malignant Hyperthermia: No Meds Allergies/Adverse Reactions: Allergies Allergy/AdvReac Type Severity Reaction Status Date / Time Penicillins Allergy RASH Verified 02/28/18 15:15 - Medications Medications: Current Medications Albuterol/Ipratropium (Duoneb 3 Mg/0.5 Mg (3 Ml) Ud) 3 ml INH RQ6 MARC Sodium Chloride (Sodium Chloride 0.9%) 1,000 mls @ 1,000 mls/hr IV .Q1H STA Stop: 02/28/18 16:46 Last Admin: 02/28/18 16:18 Dose: 1,000 mls/hr Vancomycin/Sodium Chloride (Vancomycin 1 Gm/Ns 200 Ml) 1 gm in 200 mls @ 133 mls/hr IVPB STAT STA; Protocol Stop: 02/28/18 17:18 Calcium Gluconate 2,000 mg/ (Sodium Chloride) 270 mls @ 135 mls/hr IVPB ONCE ONE Stop: 02/28/18 18:59 Metronidazole (Flagyl) 500 mg in 100 mls @ 100 mls/hr IVPB Q8H MARC; Protocol Pantoprazole Sodium (Protonix Inj) 40 mg IVP Q12H MARC Physical Exam - Constitutional Appears: Cachectic, Chronically Ill - Head Exam Head Exam: ATRAUMATIC, NORMAL INSPECTION - Eye Exam Pupil Exam: Fixed - ENT Exam ENT Exam: Mucous Membranes Moist - Respiratory Exam Respiratory Exam: Clear to Auscultation Bilateral, Rhonchi. absent: Rales, Wheezes, Respiratory Distress, Stridor - Cardiovascular Exam Cardiovascular Exam: +S1, +S2, Systolic Murmur - GI/Abdominal Exam GI & Abdominal Exam: Normal Bowel Sounds, Soft - Neurological Exam Neurological exam: Altered - Skin Skin Exam: Normal Color, Warm Results - Vital Signs Recent Vital Signs: Last Vital Signs Temp 95.5 F L 02/28/18 15:15 Pulse 90 02/28/18 15:15 Resp 16 02/28/18 15:15 BP 80/43 L 02/28/18 15:15 Pulse Ox 90 L 02/28/18 15:15 - Labs Result Diagrams: 02/28/18 15:37 02/28/18 15:37 Labs: Laboratory Results - last 24 hr 02/28/18 02/28/18 02/28/18 15:12 15:30 15:37 WBC 11.3 H RBC 3.62 L Hgb 9.6 L Hct 31.5 L MCV 87.0 D MCH 26.4 L MCHC 30.3 L RDW 21.1 H Plt Count 155 MPV 8.1 Neut % (Auto) 84.7 H Lymph % (Auto) 5.1 L [place] % (Auto) 9.1 Eos % (Auto) 0.0 Baso % (Auto) 1.1 Neut # (Auto) 9.6 H Lymph # (Auto) 0.6 L [place] # (Auto) 1.0 H Eos # (Auto) 0.0 Baso # (Auto) 0.1 Neutrophils % (Manual) 91 H Band Neutrophils % 1 Lymphocytes % (Manual) 2 L Monocytes % (Manual) 6 Platelet Estimate Normal Polychromasia Slight Hypochromasia (manual) Slight Anisocytosis (manual) Moderate PT INR APTT pO2 38 VBG pH 7.18 L* VBG pCO2 65 H VBG HCO3 19.8 VBG Total CO2 26.3 VBG O2 Sat (Calc) 76.3 H VBG Base Excess -5.2 L VBG Potassium 5.7 H Sodium 138.0 Chloride 101.0 Glucose 125 H Lactate 7.0 H* Crit Value Called To Dr garcia Crit Value Called By Ga.rt Crit Value Read Back Y Blood Gas Notified Time 1541 Potassium Carbon Dioxide Anion Gap BUN Creatinine Est GFR ( Amer) Est GFR (Non-Af Amer) POC Glucose (mg/dL) 159 H Random Glucose Calcium Total Bilirubin AST ALT Alkaline Phosphatase Total Creatine Kinase CK-MB (Mass) Troponin I Total Protein Albumin Globulin Albumin/Globulin Ratio Lipase Venous Blood Potassium 5.7 H Blood Type Antibody Screen 02/28/18 02/28/18 02/28/18 15:37 15:37 15:37 WBC RBC Hgb Hct MCV MCH MCHC RDW Plt Count MPV Neut % (Auto) Lymph % (Auto) [place] % (Auto) Eos % (Auto) Baso % (Auto) Neut # (Auto) Lymph # (Auto) [place] # (Auto) Eos # (Auto) Baso # (Auto) Neutrophils % (Manual) Band Neutrophils % Lymphocytes % (Manual) Monocytes % (Manual) Platelet Estimate Polychromasia Hypochromasia (manual) Anisocytosis (manual) PT 19.3 H INR 1.8 APTT 39 H pO2 VBG pH VBG pCO2 VBG HCO3 VBG Total CO2 VBG O2 Sat (Calc) VBG Base Excess VBG Potassium Sodium 139 Chloride 103 Glucose Lactate Crit Value Called To Crit Value Called By Crit Value Read Back Blood Gas Notified Time Potassium 6.0 H Carbon Dioxide 26 Anion Gap 17 BUN 30 H Creatinine 2.0 H Est GFR ( Amer) 41 Est GFR (Non-Af Amer) 34 POC Glucose (mg/dL) Random Glucose 139 H D Calcium 7.5 L Total Bilirubin 2.2 H AST 757 H D ALT 100 H D Alkaline Phosphatase 748 H D Total Creatine Kinase 185 H CK-MB (Mass) 1.22 Troponin I 0.0210 Total Protein 7.1 Albumin 2.5 L D Globulin 4.6 H Albumin/Globulin Ratio 0.6 L Lipase 31 Venous Blood Potassium Blood Type O POSITIVE Antibody Screen Negative Assessment & Plan - Assessment and Plan (Free Text) Assessment: AMS: exact cause unknown, check utox, CT head and continue ventilation to protect airway, neurology eval if no improvement -Hypoxic and hypercapneic respriatory failure:contine ventilation keep spo2 >92 and pH b/w 7.35-7.45, continue brochodilators, (+aspiration benfit from pulmonary toilet--thick secretions from ET tube upon suction) -Aspiration PNA: star broad spectrum abx, tolerated vanco + cefepime + flagyl (computer states allergic to PCN however patient tolerates cephalosporin) -sepsis: continue 30 ml/kg of IVF, continue maintenance IVF, serial lactic -sedatin with propofol -s/p IVC -ng tube: start tube feeds -JENNY: ?acute retention, place Fox, avoid nephrotoxic drugs, continue iV hydration -dvt ppx heparin sq -PUd ppx protonix cc time 39 minutes prognosis guarded as multiple diagnostic tests pending risks, benfits and alternatives explained to - Date & Time Date: 02/28/18 Time: 16:41
[2018-02-28] MEDS ORDERED: Propofol 10 mg/ml 1,000 MG/100 ML VIAL IV PRN ×4 (16:42→16:58)
[2018-02-28] MEDS: Sodium Chloride 0.9% 1,000 ML IV SCH (17:00)
[2018-02-28 17:08] LABS: BARBITURATES, UR NEGATIVE (NEGATIVE); PHENCYCLIDINE, UR NEGATIVE (NEGATIVE)
[2018-02-28 17:15] LABS: BENZODIAZEPINES, UR POSITIVE (NEGATIVE); OPIATES, UR POSITIVE (NEGATIVE)
[2018-02-28] MEDS ORDERED: Vancomycin 1 GM 1 GM/250 ML BAG IVPB ONE (17:27)
--- NOTE | 2018-02-28 17:56 | CP.PCM.HP ---
Past Patient History - Tetanus Immunizations Tetanus Immunization: Unknown - Past Medical History & Family History Past Medical History?: Yes - Past Social History Smoking Status: Never Smoked - CARDIAC Hx Cardiac Disorders: No - PULMONARY Hx Respiratory Disorders: No - NEUROLOGICAL Hx Alzheimer's Disease: Yes Hx Dementia: Yes - HEENT Hx HEENT Problems: Yes Hx Glaucoma: Yes - RENAL Hx Chronic Kidney Disease: No - ENDOCRINE/METABOLIC Hx Endocrine Disorders: No - HEMATOLOGICAL/ONCOLOGICAL Hx Blood Disorders: No - INTEGUMENTARY Hx Dermatological Problems: No - MUSCULOSKELETAL/RHEUMATOLOGICAL Hx Falls: Yes (work accident) - GASTROINTESTINAL Hx Gastrointestinal Disorders: Yes Hx Constipation: Yes Other/Comment: Colon CA; colostomy - GENITOURINARY/GYNECOLOGICAL Hx Genitourinary Disorders: No - PSYCHIATRIC Hx Depression: Yes Hx Substance Use: No - SURGICAL HISTORY Hx Surgeries: Yes (SEE COMMENT) Hx Orthopedic Surgery: Yes (BILAT WRIST, right hip surgery s/p work accident) Other/Comment: left knee degloving, exploratory lap s/p work accident. Colon resection. - ANESTHESIA Hx Anesthesia: Yes Hx Anesthesia Reactions: No Hx Malignant Hyperthermia: No Meds Allergies/Adverse Reactions: Allergies Allergy/AdvReac Type Severity Reaction Status Date / Time Penicillins Allergy RASH Verified 02/28/18 15:15 Results - Vital Signs Recent Vital Signs: Last Vital Signs Temp 96.1 F L 02/28/18 17:14 Pulse 86 02/28/18 17:34 Resp 18 02/28/18 17:34 BP 98/63 L 02/28/18 17:34 Pulse Ox 100 02/28/18 17:34 - Labs Result Diagrams: 02/28/18 15:37 02/28/18 15:37 Labs: Laboratory Results - last 24 hr 02/28/18 02/28/18 02/28/18 15:12 15:30 15:37 WBC 11.3 H RBC 3.62 L Hgb 9.6 L Hct 31.5 L MCV 87.0 D MCH 26.4 L MCHC 30.3 L RDW 21.1 H Plt Count 155 MPV 8.1 Neut % (Auto) 84.7 H Lymph % (Auto) 5.[address] [facility] % (Auto) 9.1 Eos % (Auto) 0.0 Baso % (Auto) 1.1 Neut # (Auto) 9.6 H Lymph # (Auto) 0.[address] [facility] # (Auto) 1.0 H Eos # (Auto) 0.0 Baso # (Auto) 0.1 Neutrophils % (Manual) 91 H Band Neutrophils % 1 Lymphocytes % (Manual) 2 L Monocytes % (Manual) 6 Platelet Estimate Normal Polychromasia Slight Hypochromasia (manual) Slight Anisocytosis (manual) Moderate PT INR APTT pO2 38 VBG pH 7.18 L* VBG pCO2 65 H VBG HCO3 19.8 VBG Total CO2 26.3 VBG O2 Sat (Calc) 76.3 H VBG Base Excess -5.2 L VBG Potassium 5.7 H Sodium 138.0 Chloride 101.0 Glucose 125 H Lactate 7.0 H* Crit Value Called To Dr garcia Crit Value Called By [email or web address] Crit Value Read Back Y Blood Gas Notified Time 1541 Potassium Carbon Dioxide Anion Gap BUN Creatinine Est GFR ( Amer) Est GFR (Non-Af Amer) POC Glucose (mg/dL) 159 H Random Glucose Calcium Total Bilirubin AST ALT Alkaline Phosphatase Total Creatine Kinase CK-MB (Mass) Troponin I Total Protein Albumin Globulin Albumin/Globulin Ratio Lipase Venous Blood Potassium 5.7 H Urine Color Urine Clarity Urine pH Ur Specific [place] Urine Protein Urine Glucose (UA) Urine Ketones Urine Blood Urine Nitrate Urine Bilirubin Urine Urobilinogen Ur Leukocyte Esterase Urine WBC (Auto) Urine RBC (Auto) Urine Bacteria Hyaline Casts Urine Opiates Screen Urine Methadone Screen Ur Barbiturates Screen Ur Phencyclidine Scrn Ur Amphetamines Screen U Benzodiazepines Scrn U Oth Cocaine Metabols U Cannabinoids Screen Blood Type Antibody Screen 02/28/18 02/28/18 02/28/18 15:37 15:37 15:37 WBC RBC Hgb Hct MCV MCH MCHC RDW Plt Count MPV Neut % (Auto) Lymph % (Auto) [facility] % (Auto) Eos % (Auto) Baso % (Auto) Neut # (Auto) Lymph # (Auto) [facility] # (Auto) Eos # (Auto) Baso # (Auto) Neutrophils % (Manual) Band Neutrophils % Lymphocytes % (Manual) Monocytes % (Manual) Platelet Estimate Polychromasia Hypochromasia (manual) Anisocytosis (manual) PT 19.3 H INR 1.8 APTT 39 H pO2 VBG pH VBG pCO2 VBG HCO3 VBG Total CO2 VBG O2 Sat (Calc) VBG Base Excess VBG Potassium Sodium 139 Chloride 103 Glucose Lactate Crit Value Called To Crit Value Called By Crit Value Read Back Blood Gas Notified Time Potassium 6.0 H Carbon Dioxide 26 Anion Gap 17 BUN 30 H Creatinine 2.0 H Est GFR ( Amer) 41 Est GFR (Non-Af Amer) 34 POC Glucose (mg/dL) Random Glucose 139 H D Calcium 7.5 L Total Bilirubin 2.2 H AST 757 H D ALT 100 H D Alkaline Phosphatase 748 H D Total Creatine Kinase 185 H CK-MB (Mass) 1.22 Troponin I 0.0210 Total Protein 7.1 Albumin 2.5 L D Globulin 4.6 H Albumin/Globulin Ratio 0.6 L Lipase 31 Venous Blood Potassium Urine Color Urine Clarity Urine pH Ur Specific [place] Urine Protein Urine Glucose (UA) Urine Ketones Urine Blood Urine Nitrate Urine Bilirubin Urine Urobilinogen Ur Leukocyte Esterase Urine WBC (Auto) Urine RBC (Auto) Urine Bacteria Hyaline Casts Urine Opiates Screen Urine Methadone Screen Ur Barbiturates Screen Ur Phencyclidine Scrn Ur Amphetamines Screen U Benzodiazepines Scrn U Oth Cocaine Metabols U Cannabinoids Screen Blood Type O POSITIVE Antibody Screen Negative 02/28/18 02/28/18 16:17 16:17 WBC RBC Hgb Hct MCV MCH MCHC RDW Plt Count MPV Neut % (Auto) Lymph % (Auto) [facility] % (Auto) Eos % (Auto) Baso % (Auto) Neut # (Auto) Lymph # (Auto) [facility] # (Auto) Eos # (Auto) Baso # (Auto) Neutrophils % (Manual) Band Neutrophils % Lymphocytes % (Manual) Monocytes % (Manual) Platelet Estimate Polychromasia Hypochromasia (manual) Anisocytosis (manual) PT INR APTT pO2 VBG pH VBG pCO2 VBG HCO3 VBG Total CO2 VBG O2 Sat (Calc) VBG Base Excess VBG Potassium Sodium Chloride Glucose Lactate Crit Value Called To Crit Value Called By Crit Value Read Back Blood Gas Notified Time Potassium Carbon Dioxide Anion Gap BUN Creatinine Est GFR ( Amer) Est GFR (Non-Af Amer) POC Glucose (mg/dL) Random Glucose Calcium Total Bilirubin AST ALT Alkaline Phosphatase Total Creatine Kinase CK-MB (Mass) Troponin I Total Protein Albumin Globulin Albumin/Globulin Ratio Lipase Venous Blood Potassium Urine Color Darlyn Urine Clarity Hazy Urine pH 5.0 Ur Specific [place] 1.023 Urine Protein 1+ H Urine Glucose (UA) Normal Urine Ketones Negative Urine Blood Negative Urine Nitrate Negative Urine Bilirubin 1+ H Urine Urobilinogen 4.0 Ur Leukocyte Esterase Neg Urine WBC (Auto) 1 Urine RBC (Auto) 1 Urine Bacteria Rare Hyaline Casts 3-5 H Urine Opiates Screen Positive H Urine Methadone Screen Negative Ur Barbiturates Screen Negative Ur Phencyclidine Scrn Negative Ur Amphetamines Screen Negative U Benzodiazepines Scrn Positive U Oth Cocaine Metabols Negative U Cannabinoids Screen Negative Blood Type Antibody Screen Assessment & Plan - Assessment and Plan (Free Text) Plan: cardio pulm septic workup id icu admitted on vasopressors iv flagyl
--- NOTE | 2018-02-28 18:06 | CT ---
Date of service: 02/28/2018 PROCEDURE: CT HEAD WITHOUT CONTRAST. HISTORY: ams COMPARISON: Noncontrast head CT performed 03/20/17 TECHNIQUE: Axial computed tomography images were obtained through the head/brain without intravenous contrast. Radiation dose: Total exam DLP = 1306.11 mGy-cm. This CT exam was performed using one or more of the following dose reduction techniques: Automated exposure control, adjustment of the mA and/or kV according to patient size, and/or use of iterative reconstruction technique. FINDINGS: Streak artifact obscures evaluation of the skull base. Examination also limited by motion. HEMORRHAGE: No intracranial hemorrhage. BRAIN: Diffuse atrophy with prominence of the ventricles and sulci noted. No mass effect or edema. Scattered white matter hypodensities, which are nonspecific, but often seen with chronic microvascular ischemic disease. On a single image (series 4, image 24) hypodense region within the right frontal lobe consistent with artifact. Please note that MRI with diffusion imaging is more sensitive in the detection of acute ischemic event. VENTRICLES: No hydrocephalus. CALVARIUM: Unremarkable. PARANASAL SINUSES: Unremarkable as visualized. No significant inflammatory changes. MASTOID AIR CELLS: Unremarkable as visualized. No inflammatory changes. OTHER FINDINGS: Partial opacification bilateral external auditory canals, likely cerumen. IMPRESSION: Examination markedly limited by motion and streak artifact. Nonspecific white matter changes. Generalized atrophy.
[2018-02-28 19:14] LABS: ARTERIAL BLOOD GAS HCO3 21.9 mmol/L (21-28); ARTERIAL BLOOD GAS O2 SAT 98.5 % (95-98); ARTERIAL BLOOD GAS PCO2 40 mm/Hg (35-45); ARTERIAL BLOOD GAS PH 7.34 (7.35-7.45); ARTERIAL BLOOD GAS PO2 94 mm/Hg (80-100); ARTERIAL BLOOD GAS TCO2 22.8 mmol/L (22-28)
[2018-02-28] MEDS: metroNIDAZOLE IV 500 mg/100 ml 500 MG/100 ML BAG IVPB SCH (19:35)
[2018-02-28] MEDS: Oseltamivir 6 MG/ML PO SCH (19:36)
[2018-02-28] MEDS: Albuterol-Ipratrop 3 mg / 0.5 (3 ml) UD INH SCH (20:16)
--- NOTE | 2018-02-28 21:58 | CP.PCM.CON ---
History of Present Illness - History of Present Illness History of Present Illness: INFECTIOUS DISEASE CONSULT. REASON FOR CONSULT; RESPIRATORY FAILURE/PNEUMONIA HPI; 63 yo male, PMHx Alzheimer's, dementia, colon cancer, s/p colectomy with colostomy. metastatic to liver and lungs, brought in by EMS with unresponsiveness, intubated. As per , patient was his normal self last night, but had been having cough and sputum production for a few days. This morning, patient would not respond. EMS was called, and upon arrival the patient was found to be hypoglycemic, dextrose administered but no improvement in response with agonal breathing, therefore intubated with ketamine and BEKAH. Additional ketamine given post-intubation. Full HPI and ROS unobtainable HISTORY OBTAINED FROM THE CHART PATIENT INTUBATED. CHEST X-RAY ON ADMISSION SHOWED WIDESPREAD PULMONARY METASTATIC DISEASE, ?SUPER IMPOSED INFECTION CANNOT BE RULED OUT. ET+VE RT. SIDED MEDIpORT. RAPID INFLUENZA A AND B ANTIGEN POSITIVE. PATIENT PRESENTLY ON TAMIFLU 30 MG BY MOUTH TWICE A DAY. PATIENT ALSO RECEIVED ONE DOSE OF VANCOMYCIN 1 G, AND ONE DOSE OF CEFEPIME 1 G AND TOLERATED IT WELL. PATIENT ALSO STARTED ON fLAGYL 500 MG EVERY 8 HOURLY iv PIGGYBACK FOR POSSIBLE ASPIRATION PNEUMONIA. INFECTIOUS DISEASE CONSULTATION REQUESTED FOR RESPIRATORY FAILURE/PNEUMONIA PMH: Alzheimer's Disease, Dementia, Depression, Malignancy (metastatic colon CA stage IV) Denies: Chronic Kidney Disease Other PMH: Colon cancer, metatastatic to liver and lungs. Other Surgeries: Colectomy, colostomy - [facility] Procedures (03/15/17) BYPASS SIGMOID COLON TO CUTANEOUS, OPEN APPROACH (03/15/17) EXCISION OF LIVER, OPEN APPROACH, DIAGNOSTIC (03/15/17) EXCISION OF SIGMOID COLON, ENDO, DIAGN (03/15/17) INSERTION OF ENDOTRACHEAL AIRWAY INTO TRACHEA, VIA OPENING (03/15/17) INSERTION OF INFUSION DEV INTO SUP VENA CAVA, PERC APPROACH (03/15/17) RELEASE LARGE INTESTINE, OPEN APPROACH (03/15/17) REPAIR ABDOMEN SKIN, EXTERNAL APPROACH (03/15/17) RESECTION OF LEFT LARGE INTESTINE, OPEN APPROACH (03/15/17) RESPIRATORY VENTILATION, GREATER THAN 96 CONSECUTIVE HOURS (03/15/17) TRANSFUSE NONAUT RED BLOOD CELLS IN PERIPH VEIN, PERC (03/15/17) ULTRASONOGRAPHY OF SUPERIOR VENA CAVA, GUIDANCE (03/15/17) Family History: States: Unknown Family Hx - Social History Hx Alcohol Use: No Hx Substance Use: No - Immunization History Hx Tetanus Toxoid Vaccination: No Hx Influenza Vaccination: No Hx Pneumococcal Vaccination: No ALLERGY; PENICILLIN BUT TOLERATED iv CEFEPIME WITHOUT ANY SIDE EFFECTS. Review of Systems - Review of Systems Systems not reviewed;Unavailable: Intubated All systems: reviewed and no additional remarkable complaints except ( PER HPI) Past Patient History - Tetanus Immunizations Tetanus Immunization: Unknown - Past Medical History & Family History Past Medical History?: Yes - Past Social History Smoking Status: Never Smoked - CARDIAC Hx Cardiac Disorders: No - PULMONARY Hx Respiratory Disorders: No Other/Comment: lung mets ca - NEUROLOGICAL Hx Neurological Disorder: Yes Hx Alzheimer's Disease: Yes Hx Dementia: Yes - HEENT Hx HEENT Problems: Yes Hx Glaucoma: Yes - RENAL Hx Chronic Kidney Disease: No - ENDOCRINE/METABOLIC Hx Endocrine Disorders: No - HEMATOLOGICAL/ONCOLOGICAL Hx Blood Disorders: No - INTEGUMENTARY Hx Dermatological Problems: No - MUSCULOSKELETAL/RHEUMATOLOGICAL Hx Falls: Yes - GASTROINTESTINAL Hx Gastrointestinal Disorders: Yes Hx Constipation: Yes Other/Comment: Colon CA; colostomy - GENITOURINARY/GYNECOLOGICAL Hx Genitourinary Disorders: No - PSYCHIATRIC Hx Substance Use: Yes (+ benzo, + opiates) - SURGICAL HISTORY Hx Surgeries: Yes (SEE COMMENT) Hx Orthopedic Surgery: Yes (tarah. hip sx and right wrist sx) Other/Comment: left knee degloving, exploratory lap s/p work accident. Colon resection. - ANESTHESIA Hx Anesthesia: Yes Hx Anesthesia Reactions: No Hx Malignant Hyperthermia: No Has any member of the family had a problem w/ anesthesia?: No Meds Allergies/Adverse Reactions: Allergies Allergy/AdvReac Type Severity Reaction Status Date / Time Penicillins Allergy RASH Verified 02/28/18 15:15 - Medications Medications: Current Medications Albuterol/Ipratropium (Duoneb 3 Mg/0.5 Mg (3 Ml) Ud) 3 ml INH RQ6 MARC Last Admin: 02/28/18 20:16 Dose: 3 ml Metronidazole (Flagyl) 500 mg in 100 mls @ 100 mls/hr IVPB Q8H MARC; Protocol Last Admin: 02/28/18 19:35 Dose: 100 mls/hr Sodium Chloride (Sodium Chloride 0.9%) 1,000 mls @ 75 mls/hr IV .[id number] MARC Last Admin: 02/28/18 17:00 Dose: 75 mls/hr Propofol (Diprivan) 1,000 mg in 100 mls @ 2.245 mls/hr IV .Q24H PRN; Protocol PRN Reason: TITRATE PER MD ORDER Oseltamivir Phosphate (Tamiflu Susp) 30 mg PO BID [facility]; Protocol Stop: 03/02/18 18:01 Last Admin: 02/28/18 19:36 Dose: 5 ml Pantoprazole Sodium (Protonix Inj) 40 mg IVP Q12H [facility] Last Admin: 02/28/18 19:35 Dose: 40 mg Results - Vital Signs Recent Vital Signs: Last Vital Signs Temp 96.7 F L 02/28/18 19:21 Pulse 91 H 02/28/18 21:12 Resp 18 02/28/18 21:12 BP 85/34 L 02/28/18 21:12 Pulse Ox 100 02/28/18 20:00 - Labs Result Diagrams: 02/28/18 15:37 02/28/18 15:37 Labs: Laboratory Results - last 24 hr 02/28/18 02/28/18 02/28/18 15:12 15:30 15:37 WBC 11.3 H RBC 3.62 L Hgb 9.6 L Hct 31.5 L MCV 87.0 D MCH 26.4 L MCHC 30.3 L RDW 21.1 H Plt Count 155 MPV 8.1 Neut % (Auto) 84.7 H Lymph % (Auto) 5.1 L [place] % (Auto) 9.1 Eos % (Auto) 0.0 Baso % (Auto) 1.1 Neut # (Auto) 9.6 H Lymph # (Auto) 0.6 L [place] # (Auto) 1.0 H Eos # (Auto) 0.0 Baso # (Auto) 0.1 Neutrophils % (Manual) 91 H Band Neutrophils % 1 Lymphocytes % (Manual) 2 L Monocytes % (Manual) 6 Platelet Estimate Normal Polychromasia Slight Hypochromasia (manual) Slight Anisocytosis (manual) Moderate PT INR APTT Puncture Site pCO2 pO2 38 HCO3 ABG pH ABG Total CO2 ABG O2 Saturation ABG Base Excess Satinder Test ABG Potassium VBG pH 7.18 L* VBG pCO2 65 H VBG HCO3 19.8 VBG Total CO2 26.3 VBG O2 Sat (Calc) 76.3 H VBG Base Excess -5.2 L VBG Potassium 5.7 H A-a O2 Difference Respiratory Index Sodium 138.0 Chloride 101.0 Glucose 125 H Lactate 7.0 H* Vent Mode Mechanical Rate FiO2 Tidal Volume PEEP Crit Value Called To Dr garcia Crit Value Called By Ga.rt Crit Value Read Back Y Blood Gas Notified Time 1541 Potassium Carbon Dioxide Anion Gap BUN Creatinine Est GFR ( Amer) Est GFR (Non-Af Amer) POC Glucose (mg/dL) 159 H Random Glucose Calcium Total Bilirubin AST ALT Alkaline Phosphatase Ammonia Total Creatine Kinase CK-MB (Mass) Troponin I NT-Pro-B Natriuret Pep Total Protein Albumin Globulin Albumin/Globulin Ratio Lipase Arterial Blood Potassium Venous Blood Potassium 5.7 H Urine Color Urine Clarity Urine pH Ur Specific [place] Urine Protein Urine Glucose (UA) Urine Ketones Urine Blood Urine Nitrate Urine Bilirubin Urine Urobilinogen Ur Leukocyte Esterase Urine WBC (Auto) Urine RBC (Auto) Urine Bacteria Hyaline Casts Urine Opiates Screen Urine Methadone Screen Ur Barbiturates Screen Ur Phencyclidine Scrn Ur Amphetamines Screen U Benzodiazepines Scrn U Oth Cocaine Metabols U Cannabinoids Screen Influenza Typ A,B (EIA) Blood Type Antibody Screen 02/28/18 02/28/18 02/28/18 15:37 15:37 15:37 WBC RBC Hgb Hct MCV MCH MCHC RDW Plt Count MPV Neut % (Auto) Lymph % (Auto) [place] % (Auto) Eos % (Auto) Baso % (Auto) Neut # (Auto) Lymph # (Auto) [place] # (Auto) Eos # (Auto) Baso # (Auto) Neutrophils % (Manual) Band Neutrophils % Lymphocytes % (Manual) Monocytes % (Manual) Platelet Estimate Polychromasia Hypochromasia (manual) Anisocytosis (manual) PT 19.3 H INR 1.8 APTT 39 H Puncture Site pCO2 pO2 HCO3 ABG pH ABG Total CO2 ABG O2 Saturation ABG Base Excess Satinder Test ABG Potassium VBG pH VBG pCO2 VBG HCO3 VBG Total CO2 VBG O2 Sat (Calc) VBG Base Excess VBG Potassium A-a O2 Difference Respiratory Index Sodium 139 Chloride 103 Glucose Lactate Vent Mode Mechanical Rate FiO2 Tidal Volume PEEP Crit Value Called To Crit Value Called By Crit Value Read Back Blood Gas Notified Time Potassium 6.0 H Carbon Dioxide 26 Anion Gap 17 BUN 30 H Creatinine 2.0 H Est GFR ( Amer) 41 Est GFR (Non-Af Amer) 34 POC Glucose (mg/dL) Random Glucose 139 H D Calcium 7.5 L Total Bilirubin 2.2 H AST 757 H D ALT 100 H D Alkaline Phosphatase 748 H D Ammonia Total Creatine Kinase 185 H CK-MB (Mass) 1.22 Troponin I 0.0210 NT-Pro-B Natriuret Pep 5360 H Total Protein 7.1 Albumin 2.5 L D Globulin 4.6 H Albumin/Globulin Ratio 0.6 L Lipase 31 Arterial Blood Potassium Venous Blood Potassium Urine Color Urine Clarity Urine pH Ur Specific [place] Urine Protein Urine Glucose (UA) Urine Ketones Urine Blood Urine Nitrate Urine Bilirubin Urine Urobilinogen Ur Leukocyte Esterase Urine WBC (Auto) Urine RBC (Auto) Urine Bacteria Hyaline Casts Urine Opiates Screen Urine Methadone Screen Ur Barbiturates Screen Ur Phencyclidine Scrn Ur Amphetamines Screen U Benzodiazepines Scrn U Oth Cocaine Metabols U Cannabinoids Screen Influenza Typ A,B (EIA) Blood Type O POSITIVE Antibody Screen Negative 02/28/18 02/28/18 02/28/18 16:17 16:17 17:18 WBC RBC Hgb Hct MCV MCH MCHC RDW Plt Count MPV Neut % (Auto) Lymph % (Auto) [place] % (Auto) Eos % (Auto) Baso % (Auto) Neut # (Auto) Lymph # (Auto) [place] # (Auto) Eos # (Auto) Baso # (Auto) Neutrophils % (Manual) Band Neutrophils % Lymphocytes % (Manual) Monocytes % (Manual) Platelet Estimate Polychromasia Hypochromasia (manual) Anisocytosis (manual) PT INR APTT Puncture Site pCO2 pO2 HCO3 ABG pH ABG Total CO2 ABG O2 Saturation ABG Base Excess Satinder Test ABG Potassium VBG pH VBG pCO2 VBG HCO3 VBG Total CO2 VBG O2 Sat (Calc) VBG Base Excess VBG Potassium A-a O2 Difference Respiratory Index Sodium Chloride Glucose Lactate Vent Mode Mechanical Rate FiO2 Tidal Volume PEEP Crit Value Called To Crit Value Called By Crit Value Read Back Blood Gas Notified Time Potassium Carbon Dioxide Anion Gap BUN Creatinine Est GFR ( Amer) Est GFR (Non-Af Amer) POC Glucose (mg/dL) Random Glucose Calcium Total Bilirubin AST ALT Alkaline Phosphatase Ammonia Total Creatine Kinase CK-MB (Mass) Troponin I NT-Pro-B Natriuret Pep Total Protein Albumin Globulin Albumin/Globulin Ratio Lipase Arterial Blood Potassium Venous Blood Potassium Urine Color Darlyn Urine Clarity Hazy Urine pH 5.0 Ur Specific [place] 1.023 Urine Protein 1+ H Urine Glucose (UA) Normal Urine Ketones Negative Urine Blood Negative Urine Nitrate Negative Urine Bilirubin 1+ H Urine Urobilinogen 4.0 Ur Leukocyte Esterase Neg Urine WBC (Auto) 1 Urine RBC (Auto) 1 Urine Bacteria Rare Hyaline Casts 3-5 H Urine Opiates Screen Positive H Urine Methadone Screen Negative Ur Barbiturates Screen Negative Ur Phencyclidine Scrn Negative Ur Amphetamines Screen Negative U Benzodiazepines Scrn Positive U Oth Cocaine Metabols Negative U Cannabinoids Screen Negative Influenza Typ A,B (EIA) Blood Type Antibody Screen 02/28/18 02/28/18 17:52 19:08 WBC RBC Hgb Hct MCV MCH MCHC RDW Plt Count MPV Neut % (Auto) Lymph % (Auto) [place] % (Auto) Eos % (Auto) Baso % (Auto) Neut # (Auto) Lymph # (Auto) [place] # (Auto) Eos # (Auto) Baso # (Auto) Neutrophils % (Manual) Band Neutrophils % Lymphocytes % (Manual) Monocytes % (Manual) Platelet Estimate Polychromasia Hypochromasia (manual) Anisocytosis (manual) PT INR APTT Puncture Site Rba pCO2 40 pO2 94 HCO3 21.9 ABG pH 7.34 L ABG Total CO2 22.8 ABG O2 Saturation 98.5 H ABG Base Excess -3.9 L [place] Test Na ABG Potassium 5.5 H VBG pH VBG pCO2 VBG HCO3 VBG Total CO2 VBG O2 Sat (Calc) VBG Base Excess VBG Potassium A-a O2 Difference 284.0 Respiratory Index 3.0 Sodium 140.0 Chloride 109.0 H Glucose 92 Lactate 3.9 H Vent Mode Prvc Mechanical Rate 20 FiO2 60.0 Tidal Volume 500 PEEP 5 Crit Value Called To Crit Value Called By Crit Value Read Back Blood Gas Notified Time Potassium Carbon Dioxide Anion Gap BUN Creatinine Est GFR ( Amer) Est GFR (Non-Af Amer) POC Glucose (mg/dL) Random Glucose Calcium Total Bilirubin AST ALT Alkaline Phosphatase Ammonia 93 H Total Creatine Kinase CK-MB (Mass) Troponin I NT-Pro-B Natriuret Pep Total Protein Albumin Globulin Albumin/Globulin Ratio Lipase Arterial Blood Potassium 5.5 H Venous Blood Potassium Urine Color Urine Clarity Urine pH Ur Specific [place] Urine Protein Urine Glucose (UA) Urine Ketones Urine Blood Urine Nitrate Urine Bilirubin Urine Urobilinogen Ur Leukocyte Esterase Urine WBC (Auto) Urine RBC (Auto) Urine Bacteria Hyaline Casts Urine Opiates Screen Urine Methadone Screen Ur Barbiturates Screen Ur Phencyclidine Scrn Ur Amphetamines Screen U Benzodiazepines Scrn U Oth Cocaine Metabols U Cannabinoids Screen Influenza Typ A,B (EIA) Blood Type Antibody Screen - Imaging and Cardiology Chest x-ray Status: Report reviewed by me (SEE REPORT.) Assessment & Plan (1) Respiratory failure Status: Acute (2) Pneumonia Status: Acute (3) Transaminitis Status: Acute (4) Metastatic colon cancer to liver Status: Acute (5) JENNY (acute kidney injury) Status: Acute - Assessment and Plan (Free Text) Plan: PLAN; PANCULTURE. SPUTUM CULTURES MRSA SCREEN ATYPICAL TITRES. ESR CRP LFTS HEPATITIS SCREEN INFLUENZA A & B ANTIBODY. CONTINUE IV CEFEPIME 1GM IVPB [id number] 02/27/18 CONTINUE IV TAMIFLUE 30MG PO BID 02/28/18 CONTINUE IV FLAGYL 500MG IVPB Q 8HRLY FOR NOW.02/28/17 VANCO RANDOM LEVEL IN AM DROPLET PRECAUTIONS.
[2018-02-28] MEDS ORDERED: Cefepime IV 1 gm in Dextrose 1 GM/50 ML BAG IVPB SCH (22:15)
[2018-03-01] MEDS: metroNIDAZOLE IV 500 mg/100 ml 500 MG/100 ML BAG IVPB SCH ×2 (01:46→10:00)
[2018-03-01] MEDS: Albuterol-Ipratrop 3 mg / 0.5 (3 ml) UD INH SCH (03:57)
[2018-03-01 05:15] LABS: ARTERIAL BLOOD GAS HCO3 23.9 mmol/L (21-28); ARTERIAL BLOOD GAS HEMOGLOBIN 9.2 g/dL (11.7-17.4); ARTERIAL BLOOD GAS O2 SAT 97.6 % (95-98); ARTERIAL BLOOD GAS PCO2 31 mm/Hg (35-45); ARTERIAL BLOOD GAS PH 7.46 (7.35-7.45); ARTERIAL BLOOD GAS PO2 74 mm/Hg (80-100)
[2018-03-01 06:04] LABS: BASO # 0.1 K/uL (0.0-0.2); BASO % 0.6 % (0.0-2.0); EOS % 0.1 % (0.0-4.0); HEMOGLOBIN 9.6 g/dL (12.0-18.0); LYMPH # 0.5 K/uL (1.0-4.3); LYMPH % 4.6 % (20.0-40.0); MEAN CELL VOLUME 83.5 fL (80.0-94.0); MEAN CORPUSCULAR HEMOGLOBIN 27.1 pg (27.0-31.0); MEAN CORPUSCULAR HGB CONC 32.4 g/dL (33.0-37.0); MEAN PLATELET VOLUME 8.5 fL (7.2-11.7); MONO # 0.8 K/uL (0.0-0.8); MONO % 7.5 % (0.0-10.0); NEUT # 9.1 K/uL (1.8-7.0); NEUT % 87.2 % (50.0-75.0); NRBC % 0.2 % (0.0-2.0); PLATELET COUNT 126 K/uL (130-400); RBC 3.56 Mil/uL (4.40-5.90); RED CELL DISTRIBUTION WIDTH 20.9 % (11.5-14.5); WHITE BLOOD COUNT 10.5 K/uL (4.8-10.8)
[2018-03-01 07:01] LABS: ALB/GLOB RATIO 0.5 (1.0-2.1); ALT/SGPT 362 U/L (21-72); BILIRUBIN,DIRECT 2.2 mg/dL (0.0-0.4); BLOOD UREA NITROGEN 37 mg/dL (9-20); GFR NON-AFRICAN AMERICAN 47
[2018-03-01 07:02] LABS: HEPATITIS B SURFACE AG Negative (NEGATIVE)
[2018-03-01 07:07] LABS: HEPATITIS A IGM NEGATIVE (NEGATIVE); HEPATITIS B CORE AB NEGATIVE (NEGATIVE)
[2018-03-01 07:18] LABS: HEPATITIS C ANTIBODY NEGATIVE (NEGATIVE)
[2018-03-01 07:19] LABS: HEPATITIS C ANTIBODY NEGATIVE (NEGATIVE)
[2018-03-01] MEDS: Sodium Chloride 0.9% 1,000 ML IV SCH ×2 (07:27→13:13)
[2018-03-01 07:31] LABS: AST/SGOT 2498 U/L (17-59)
[2018-03-01 08:38] LABS: BANDS 30 % (0-2); LYMPHOCYTE 3 % (20-40); MONOCYTE 5 % (0-10); NEUTROPHIL 62 % (50-75); TOTAL CELLS COUNTED 100
[2018-03-01 08:39] LABS: ANISOCYTOSIS SLIGHT; HYPOCHROMIC SLIGHT; PLATELET ESTIMATE NORMAL (NORMAL); POLYCHROMIC SLIGHT; TARGET CELLS SLIGHT
--- NOTE | 2018-03-01 08:47 | CP.CCUPN ---
<Vidya Mariscal - Last Filed: 03/01/18 10:51> CCU Subjective - Physician Review Subjective (Free Text): 03/01/18 10:08 ICU Progress Note for Dr. Collins Patient seen and examined at bedside this morning. Patient sedated on propofol and intubated. Patient not responsive with vigorous sternal rub. Due to patient condition ROS unable to be obtained. CCU Objective - Vital Signs / Intake & Output Vital Signs (Last 4 hours): Vital Signs Temp Pulse Resp BP Pulse Ox 03/01/18 08:06 115 H 20 100 03/01/18 08:00 99.2 F 113 H 19 88/49 L 100 03/01/18 07:00 111 H 19 97/47 L 100 03/01/18 06:12 109 H 20 97/47 L 100 03/01/18 06:07 104 H 23 79/34 L 100 03/01/18 05:06 109 H 25 H 114/57 L 100 03/01/18 05:00 109 H 20 100 Intake and Output (Last 8hrs): Intake & Output 02/28/18 03/01/18 03/01/18 22:59 06:59 14:59 Intake Total 875 657.8 77.7 Output Total 285 405 Balance 590 252.8 77.7 Weight 165 lb 169 lb 14.4 oz Intake: IV 0 Intake, IV Amount 725 657.8 77.7 R chest Port-A-Cath 250 20.3 2.7 Right Hand 0 Right Port-A-Cath 400 637.5 75 Right Subclavian 75 Other 150 Output: Urine 285 405 Urethral (Fox) 285 405 Other: Voiding Method Indwelling Catheter - Physical Exam Physical Exam Limitations: Positive for: Other (intubated and sedated. Not responsive to voice or pain.) Head: Positive for: Atraumatic, Normocephalic Respiratory/Chest: Positive for: Wheezes (bilateral) Cardiovascular: Positive for: Regular Rate and Rhythm, Tachycardic Abdomen: Positive for: Distention, Other (colostomy bag intact on left abdomen). Negative for: Normal Bowel Sounds, Rebound, Guarding (unable to assess for tenderness due to patient sedation) Upper Extremity: Positive for: Normal Inspection Lower Extremity: Positive for: Normal Inspection, Capillary Refill < 2 s Skin: Positive for: Dry, Normal Color. Negative for: Rashes Psychiatric: Negative for: Alert - Medications Active Medications: Active Medications Generic Name Dose Route Start Last Admin Trade Name Freq PRN Reason Stop Dose Admin Albuterol/Ipratropium 3 ml 02/28/18 20:00 03/01/18 03:57 Duoneb 3 Mg/0.5 Mg (3 Ml) Ud INH Not Given RQ6 MARC Heparin Sodium (Porcine) 5,000 units 02/28/18 22:30 02/28/18 22:35 Heparin SC 5,000 units Q12 MARC Administration Metronidazole 500 mg in 100 mls @ 100 mls/hr 02/28/18 17:00 03/01/18 01:46 Flagyl IVPB 100 mls/hr Q8H MARC Administration Protocol Sodium Chloride 1,000 mls @ 75 mls/hr 02/28/18 16:45 03/01/18 07:27 Sodium Chloride 0.9% IV Not Given .[id number] MARC Propofol 1,000 mg in 100 mls @ 2.245 mls/hr 02/28/18 16:58 03/01/18 02:30 Diprivan IV 10 mcg/kg/min .Q24H PRN 4.491 mls/hr TITRATE PER MD ORDER Titration Protocol 5 MCG/KG/MIN Cefepime HCl 1 gm in 50 mls @ 100 mls/hr 02/28/18 22:15 02/28/18 22:41 Maxipime Iv 1 Gm Premix IVPB 100 mls/hr Q24H MARC Administration Protocol Oseltamivir Phosphate 30 mg 02/28/18 18:30 02/28/18 19:36 Tamiflu Susp PO 03/02/18 18:01 5 ml BID MARC Administration Protocol Pantoprazole Sodium 40 mg 03/01/18 06:00 03/01/18 05:12 Protonix Inj IVP 40 mg Q12H MARC Administration - Patient Studies Lab Studies: Microbiology Studies 02/28/18 20:36 Gram Stain - Final Trachasp Lab Studies 03/01/18 03/01/18 03/01/18 Range/Units 05:55 05:55 05:55 WBC (4.8-10.8) K/uL RBC (4.40-5.90) Mil/uL Hgb (12.0-18.0) g/dL Hct (35.0-51.0) % MCV (80.0-94.0) fL MCH (27.0-31.0) pg MCHC (33.0-37.0) g/dL RDW (11.5-14.5) % Plt Count (130-400) K/uL MPV (7.2-11.7) fL Neut % (Auto) (50.0-75.0) % Lymph % (Auto) (20.0-40.0) % Schleicher % (Auto) (0.0-10.0) % Eos % (Auto) (0.0-4.0) % Baso % (Auto) (0.0-2.0) % Neut # (Auto) (1.8-7.0) K/uL Lymph # (Auto) (1.0-4.3) K/uL Schleicher # (Auto) (0.0-0.8) K/uL Eos # (Auto) (0.0-0.7) K/uL Baso # (Auto) (0.0-0.2) K/uL Neutrophils % (Manual) (50-75) % Band Neutrophils % (0-2) % Lymphocytes % (Manual) (20-40) % Monocytes % (Manual) (0-10) % Platelet Estimate (NORMAL) Polychromasia Hypochromasia (manual) Anisocytosis (manual) Target Cells PT (9.7-12.2) SECONDS INR APTT (21-34) SECONDS Puncture Site pCO2 (35-45) mm/Hg pO2 (30-55) mm/Hg HCO3 (21-28) mmol/L ABG pH (7.35-7.45) ABG Total CO2 (22-28) mmol/L ABG O2 Saturation (95-98) % ABG Base Excess (-2.0-3.0) mmol/L ABG Hemoglobin (11.7-17.4) g/dL ABG Carboxyhemoglobin (0.5-1.5) % POC ABG HHb (Measured) (0.0-5.0) % ABG Methemoglobin (0.0-3.0) % S[place]der Test ABG Potassium (3.6-5.2) mmol/L VBG pH (7.32-7.43) VBG pCO2 (40-60) mmHg VBG HCO3 mmol/L VBG Total CO2 (22-28) mmol/L VBG O2 Sat (Calc) (40-65) % VBG Base Excess (0.0-2.0) mmol/L VBG Potassium (3.6-5.2) mmol/L A-a O2 Difference mm/Hg Respiratory Index Hgb O2 Saturation (95.0-98.0) % Sodium 139 (132-148) mmol/l Chloride 105 (98-107) mmol/L Glucose (75-110) mg/dl Lactate (0.7-2.1) mmol/L Vent Mode Mechanical Rate FiO2 % Tidal Volume PEEP Crit Value Called To Crit Value Called By Crit Value Read Back Blood Gas Notified Time Potassium 4.1 (3.6-5.2) mmol/L Carbon Dioxide 26 (22-30) mmol/L Anion Gap 12 (10-20) BUN 37 H (9-20) mg/dL Creatinine 1.5 (0.8-1.5) mg/dL Est GFR ( Amer) 57 Est GFR (Non-Af Amer) 47 POC Glucose (mg/dL) (65-110) mg/dL Random Glucose 71 L D (75-110) mg/dL Lactic Acid (0.7-2.1) mmol/L Calcium 7.0 L (8.6-10.4) mg/dl Phosphorus 3.5 (2.5-4.5) mg/dL Magnesium 1.6 (1.6-2.3) mg/dL Total Bilirubin 2.6 H (0.2-1.3) mg/dL Direct Bilirubin 2.2 H (0.0-0.4) mg/dL AST 2498 H (17-59) U/L ALT 362 H D (21-72) U/L Alkaline Phosphatase 1027 H (38-126) U/L Ammonia (9-33) umol/L Total Creatine Kinase (55-170) U/L CK-MB (Mass) (0.0-3.38) ng/mL Troponin I (0.00-0.120) ng/mL C-React Prot High Sens > 15.00 H (1.00-3.00) mg/L NT-Pro-B Natriuret Pep (0-900) pg/mL Total Protein 6.4 (6.3-8.3) g/dL Albumin 2.0 L (3.5-5.0) g/dL Globulin 4.4 H (2.2-3.9) gm/dL Albumin/Globulin Ratio 0.5 L (1.0-2.1) Lipase (23-300) U/L Arterial Blood Potassium (3.6-5.2) mmol/L Venous Blood Potassium (3.6-5.2) mmol/L Urine Color (YELLOW) Urine Clarity (Clear) Urine pH (5.0-8.0) Ur Specific [place] (1.003-1.030) Urine Protein (NEGATIVE) mg/dL Urine Glucose (UA) (Normal) mg/dL Urine Ketones (NEGATIVE) mg/dL Urine Blood (NEGATIVE) Urine Nitrate (NEGATIVE) Urine Bilirubin (NEGATIVE) Urine Urobilinogen (0.2-1.0) mg/dL Ur Leukocyte Esterase (Negative) Linda/uL Urine WBC (Auto) (0-5) /hpf Urine RBC (Auto) (0-3) /hpf Urine Bacteria (<OCC) Hyaline Casts (0-2) /lpf Urine Opiates Screen (NEGATIVE) Urine Methadone Screen (NEGATIVE) Ur Barbiturates Screen (NEGATIVE) Ur Phencyclidine Scrn (NEGATIVE) Ur Amphetamines Screen (NEGATIVE) U Benzodiazepines Scrn (NEGATIVE) U Oth Cocaine Metabols (NEGATIVE) U Cannabinoids Screen (NEGATIVE) Hepatitis A IgM Ab Negative (NEGATIVE) Hep Bs Antigen Negative (NEGATIVE) Hep B Core IgM Ab Negative (NEGATIVE) Hepatitis C Antibody Negative Negative (NEGATIVE) Influenza Typ A,B (EIA) (NEGATIVE) Blood Type Antibody Screen 03/01/18 03/01/18 03/01/18 Range/Units 05:55 05:23 05:20 WBC 10.5 (4.8-10.8) K/uL RBC 3.56 L (4.40-5.90) Mil/uL Hgb 9.6 L (12.0-18.0) g/dL Hct 29.7 L (35.0-51.0) % MCV 83.5 D (80.0-94.0) fL MCH 27.1 (27.0-31.0) pg MCHC 32.4 L (33.0-37.0) g/dL RDW 20.9 H (11.5-14.5) % Plt Count 126 L D (130-400) K/uL MPV 8.5 (7.2-11.7) fL Neut % (Auto) 87.2 H (50.0-75.0) % Lymph % (Auto) 4.6 L (20.0-40.0) % Schleicher % (Auto) 7.5 (0.0-10.0) % Eos % (Auto) 0.1 (0.0-4.0) % Baso % (Auto) 0.6 (0.0-2.0) % Neut # (Auto) 9.1 H (1.8-7.0) K/uL Lymph # (Auto) 0.5 L (1.0-4.3) K/uL Schleicher # (Auto) 0.8 (0.0-0.8) K/uL Eos # (Auto) 0.0 (0.0-0.7) K/uL Baso # (Auto) 0.1 (0.0-0.2) K/uL Neutrophils % (Manual) 62 (50-75) % Band Neutrophils % 30 H* (0-2) % Lymphocytes % (Manual) 3 L (20-40) % Monocytes % (Manual) 5 (0-10) % Platelet Estimate Normal (NORMAL) Polychromasia Slight Hypochromasia (manual) Slight Anisocytosis (manual) Slight Target Cells Slight PT (9.7-12.2) SECONDS INR APTT (21-34) SECONDS Puncture Site pCO2 (35-45) mm/Hg pO2 (30-55) mm/Hg HCO3 (21-28) mmol/L ABG pH (7.35-7.45) ABG Total CO2 (22-28) mmol/L ABG O2 Saturation (95-98) % ABG Base Excess (-2.0-3.0) mmol/L ABG Hemoglobin (11.7-17.4) g/dL ABG Carboxyhemoglobin (0.5-1.5) % POC ABG HHb (Measured) (0.0-5.0) % ABG Methemoglobin (0.0-3.0) % [place] Test ABG Potassium (3.6-5.2) mmol/L VBG pH (7.32-7.43) VBG pCO2 (40-60) mmHg VBG HCO3 mmol/L VBG Total CO2 (22-28) mmol/L VBG O2 Sat (Calc) (40-65) % VBG Base Excess (0.0-2.0) mmol/L VBG Potassium (3.6-5.2) mmol/L A-a O2 Difference mm/Hg Respiratory Index Hgb O2 Saturation (95.0-98.0) % Sodium (132-148) mmol/l Chloride (98-107) mmol/L Glucose (75-110) mg/dl Lactate (0.7-2.1) mmol/L Vent Mode Mechanical Rate FiO2 % Tidal Volume PEEP Crit Value Called To Crit Value Called By Crit Value Read Back Blood Gas Notified Time Potassium (3.6-5.2) mmol/L Carbon Dioxide (22-30) mmol/L Anion Gap (10-20) BUN (9-20) mg/dL Creatinine (0.8-1.5) mg/dL Est GFR ( Amer) Est GFR (Non-Af Amer) POC Glucose (mg/dL) 75 60 L (65-110) mg/dL Random Glucose (75-110) mg/dL Lactic Acid (0.7-2.1) mmol/L Calcium (8.6-10.4) mg/dl Phosphorus (2.5-4.5) mg/dL Magnesium (1.6-2.3) mg/dL Total Bilirubin (0.2-1.3) mg/dL Direct Bilirubin (0.0-0.4) mg/dL AST (17-59) U/L ALT (21-72) U/L Alkaline Phosphatase (38-126) U/L Ammonia (9-33) umol/L Total Creatine Kinase (55-170) U/L CK-MB (Mass) (0.0-3.38) ng/mL Troponin I (0.00-0.120) ng/mL C-React Prot High Sens (1.00-3.00) mg/L NT-Pro-B Natriuret Pep (0-900) pg/mL Total Protein (6.3-8.3) g/dL Albumin (3.5-5.0) g/dL Globulin (2.2-3.9) gm/dL Albumin/Globulin Ratio (1.0-2.1) Lipase (23-300) U/L Arterial Blood Potassium (3.6-5.2) mmol/L Venous Blood Potassium (3.6-5.2) mmol/L Urine Color (YELLOW) Urine Clarity (Clear) Urine pH (5.0-8.0) Ur Specific [place] (1.003-1.030) Urine Protein (NEGATIVE) mg/dL Urine Glucose (UA) (Normal) mg/dL Urine Ketones (NEGATIVE) mg/dL Urine Blood (NEGATIVE) Urine Nitrate (NEGATIVE) Urine Bilirubin (NEGATIVE) Urine Urobilinogen (0.2-1.0) mg/dL Ur Leukocyte Esterase (Negative) Linda/uL Urine WBC (Auto) (0-5) /hpf Urine RBC (Auto) (0-3) /hpf Urine Bacteria (<OCC) Hyaline Casts (0-2) /lpf Urine Opiates Screen (NEGATIVE) Urine Methadone Screen (NEGATIVE) Ur Barbiturates Screen (NEGATIVE) Ur Phencyclidine Scrn (NEGATIVE) Ur Amphetamines Screen (NEGATIVE) U Benzodiazepines Scrn (NEGATIVE) U Oth Cocaine Metabols (NEGATIVE) U Cannabinoids Screen (NEGATIVE) Hepatitis A IgM Ab (NEGATIVE) Hep Bs Antigen (NEGATIVE) Hep B Core IgM Ab (NEGATIVE) Hepatitis C Antibody (NEGATIVE) Influenza Typ A,B (EIA) (NEGATIVE) Blood Type Antibody Screen 03/01/18 03/01/18 02/28/18 Range/Units 05:12 00:38 23:39 WBC (4.8-10.8) K/uL RBC (4.40-5.90) Mil/uL Hgb (12.0-18.0) g/dL Hct (35.0-51.0) % MCV (80.0-94.0) fL MCH (27.0-31.0) pg MCHC (33.0-37.0) g/dL RDW (11.5-14.5) % Plt Count (130-400) K/uL MPV (7.2-11.7) fL Neut % (Auto) (50.0-75.0) % Lymph % (Auto) (20.0-40.0) % Schleicher % (Auto) (0.0-10.0) % Eos % (Auto) (0.0-4.0) % Baso % (Auto) (0.0-2.0) % Neut # (Auto) (1.8-7.0) K/uL Lymph # (Auto) (1.0-4.3) K/uL Schleicher # (Auto) (0.0-0.8) K/uL Eos # (Auto) (0.0-0.7) K/uL Baso # (Auto) (0.0-0.2) K/uL Neutrophils % (Manual) (50-75) % Band Neutrophils % (0-2) % Lymphocytes % (Manual) (20-40) % Monocytes % (Manual) (0-10) % Platelet Estimate (NORMAL) Polychromasia Hypochromasia (manual) Anisocytosis (manual) Target Cells PT (9.7-12.2) SECONDS INR APTT (21-34) SECONDS Puncture Site Rb pCO2 31 L (35-45) mm/Hg pO2 74 L (30-55) mm/Hg HCO3 23.9 (21-28) mmol/L ABG pH 7.46 H (7.35-7.45) ABG Total CO2 23.0 (22-28) mmol/L ABG O2 Saturation 97.6 (95-98) % ABG Base Excess -1.3 (-2.0-3.0) mmol/L ABG Hemoglobin 9.2 L (11.7-17.4) g/dL ABG Carboxyhemoglobin 2.1 H (0.5-1.5) % POC ABG HHb (Measured) 2.3 (0.0-5.0) % ABG Methemoglobin 0.5 (0.0-3.0) % [place] Test Na ABG Potassium (3.6-5.2) mmol/L VBG pH (7.32-7.43) VBG pCO2 (40-60) mmHg VBG HCO3 mmol/L VBG Total CO2 (22-28) mmol/L VBG O2 Sat (Calc) (40-65) % VBG Base Excess (0.0-2.0) mmol/L VBG Potassium (3.6-5.2) mmol/L A-a O2 Difference 315.0 mm/Hg Respiratory Index 4.3 Hgb O2 Saturation 95.1 (95.0-98.0) % Sodium (132-148) mmol/l Chloride (98-107) mmol/L Glucose (75-110) mg/dl Lactate (0.7-2.1) mmol/L Vent Mode Prvc Mechanical Rate 20 FiO2 60.0 % Tidal Volume 500 PEEP 5 Crit Value Called To Crit Value Called By Crit Value Read Back Blood Gas Notified Time Potassium (3.6-5.2) mmol/L Carbon Dioxide (22-30) mmol/L Anion Gap (10-20) BUN (9-20) mg/dL Creatinine (0.8-1.5) mg/dL Est GFR ( Amer) Est GFR (Non-Af Amer) POC Glucose (mg/dL) 84 (65-110) mg/dL Random Glucose (75-110) mg/dL Lactic Acid 2.6 H (0.7-2.1) mmol/L Calcium (8.6-10.4) mg/dl Phosphorus (2.5-4.5) mg/dL Magnesium (1.6-2.3) mg/dL Total Bilirubin (0.2-1.3) mg/dL Direct Bilirubin (0.0-0.4) mg/dL AST (17-59) U/L ALT (21-72) U/L Alkaline Phosphatase (38-126) U/L Ammonia (9-33) umol/L Total Creatine Kinase (55-170) U/L CK-MB (Mass) (0.0-3.38) ng/mL Troponin I (0.00-0.120) ng/mL C-React Prot High Sens (1.00-3.00) mg/L NT-Pro-B Natriuret Pep (0-900) pg/mL Total Protein (6.3-8.3) g/dL Albumin (3.5-5.0) g/dL Globulin (2.2-3.9) gm/dL Albumin/Globulin Ratio (1.0-2.1) Lipase (23-300) U/L Arterial Blood Potassium (3.6-5.2) mmol/L Venous Blood Potassium (3.6-5.2) mmol/L Urine Color (YELLOW) Urine Clarity (Clear) Urine pH (5.0-8.0) Ur Specific [place] (1.003-1.030) Urine Protein (NEGATIVE) mg/dL Urine Glucose (UA) (Normal) mg/dL Urine Ketones (NEGATIVE) mg/dL Urine Blood (NEGATIVE) Urine Nitrate (NEGATIVE) Urine Bilirubin (NEGATIVE) Urine Urobilinogen (0.2-1.0) mg/dL Ur Leukocyte Esterase (Negative) Linda/uL Urine WBC (Auto) (0-5) /hpf Urine RBC (Auto) (0-3) /hpf Urine Bacteria (<OCC) Hyaline Casts (0-2) /lpf Urine Opiates Screen (NEGATIVE) Urine Methadone Screen (NEGATIVE) Ur Barbiturates Screen (NEGATIVE) Ur Phencyclidine Scrn (NEGATIVE) Ur Amphetamines Screen (NEGATIVE) U Benzodiazepines Scrn (NEGATIVE) U Oth Cocaine Metabols (NEGATIVE) U Cannabinoids Screen (NEGATIVE) Hepatitis A IgM Ab (NEGATIVE) Hep Bs Antigen (NEGATIVE) Hep B Core IgM Ab (NEGATIVE) Hepatitis C Antibody (NEGATIVE) Influenza Typ A,B (EIA) (NEGATIVE) Blood Type Antibody Screen 02/28/18 02/28/18 02/28/18 Range/Units 19:08 17:52 17:18 WBC (4.8-10.8) K/uL RBC (4.40-5.90) Mil/uL Hgb (12.0-18.0) g/dL Hct (35.0-51.0) % MCV (80.0-94.0) fL MCH (27.0-31.0) pg MCHC (33.0-37.0) g/dL RDW (11.5-14.5) % Plt Count (130-400) K/uL MPV (7.2-11.7) fL Neut % (Auto) (50.0-75.0) % Lymph % (Auto) (20.0-40.0) % Schleicher % (Auto) (0.0-10.0) % Eos % (Auto) (0.0-4.0) % Baso % (Auto) (0.0-2.0) % Neut # (Auto) (1.8-7.0) K/uL Lymph # (Auto) (1.0-4.3) K/uL [place] # (Auto) (0.0-0.8) K/uL Eos # (Auto) (0.0-0.7) K/uL Baso # (Auto) (0.0-0.2) K/uL Neutrophils % (Manual) (50-75) % Band Neutrophils % (0-2) % Lymphocytes % (Manual) (20-40) % Monocytes % (Manual) (0-10) % Platelet Estimate (NORMAL) Polychromasia Hypochromasia (manual) Anisocytosis (manual) Target Cells PT (9.7-12.2) SECONDS INR APTT (21-34) SECONDS Puncture Site Rba pCO2 40 (35-45) mm/Hg pO2 94 (30-55) mm/Hg HCO3 21.9 (21-28) mmol/L ABG pH 7.34 L (7.35-7.45) ABG Total CO2 22.8 (22-28) mmol/L ABG O2 Saturation 98.5 H (95-98) % ABG Base Excess -3.9 L (-2.0-3.0) mmol/L ABG Hemoglobin (11.7-17.4) g/dL ABG Carboxyhemoglobin (0.5-1.5) % POC ABG HHb (Measured) (0.0-5.0) % ABG Methemoglobin (0.0-3.0) % [place] Test Na ABG Potassium 5.5 H (3.6-5.2) mmol/L VBG pH (7.32-7.43) VBG pCO2 (40-60) mmHg VBG HCO3 mmol/L VBG Total CO2 (22-28) mmol/L VBG O2 Sat (Calc) (40-65) % VBG Base Excess (0.0-2.0) mmol/L VBG Potassium (3.6-5.2) mmol/L A-a O2 Difference 284.0 mm/Hg Respiratory Index 3.0 Hgb O2 Saturation (95.0-98.0) % Sodium 140.0 (132-148) mmol/l Chloride 109.0 H (98-107) mmol/L Glucose 92 (75-110) mg/dl Lactate 3.9 H (0.7-2.1) mmol/L Vent Mode Prvc Mechanical Rate 20 FiO2 60.0 % Tidal Volume 500 PEEP 5 Crit Value Called To Crit Value Called By Crit Value Read Back Blood Gas Notified Time Potassium (3.6-5.2) mmol/L Carbon Dioxide (22-30) mmol/L Anion Gap (10-20) BUN (9-20) mg/dL Creatinine (0.8-1.5) mg/dL Est GFR ( Amer) Est GFR (Non-Af Amer) POC Glucose (mg/dL) (65-110) mg/dL Random Glucose (75-110) mg/dL Lactic Acid (0.7-2.1) mmol/L Calcium (8.6-10.4) mg/dl Phosphorus (2.5-4.5) mg/dL Magnesium (1.6-2.3) mg/dL Total Bilirubin (0.2-1.3) mg/dL Direct Bilirubin (0.0-0.4) mg/dL AST (17-59) U/L ALT (21-72) U/L Alkaline Phosphatase (38-126) U/L Ammonia 93 H (9-33) umol/L Total Creatine Kinase (55-170) U/L CK-MB (Mass) (0.0-3.38) ng/mL Troponin I (0.00-0.120) ng/mL C-React Prot High Sens (1.00-3.00) mg/L NT-Pro-B Natriuret Pep (0-900) pg/mL Total Protein (6.3-8.3) g/dL Albumin (3.5-5.0) g/dL Globulin (2.2-3.9) gm/dL Albumin/Globulin Ratio (1.0-2.1) Lipase (23-300) U/L Arterial Blood Potassium 5.5 H (3.6-5.2) mmol/L Venous Blood Potassium (3.6-5.2) mmol/L Urine Color (YELLOW) Urine Clarity (Clear) Urine pH (5.0-8.0) Ur Specific [place] (1.003-1.030) Urine Protein (NEGATIVE) mg/dL Urine Glucose (UA) (Normal) mg/dL Urine Ketones (NEGATIVE) mg/dL Urine Blood (NEGATIVE) Urine Nitrate (NEGATIVE) Urine Bilirubin (NEGATIVE) Urine Urobilinogen (0.2-1.0) mg/dL Ur Leukocyte Esterase (Negative) Linda/uL Urine WBC (Auto) (0-5) /hpf Urine RBC (Auto) (0-3) /hpf Urine Bacteria (<OCC) Hyaline Casts (0-2) /lpf Urine Opiates Screen (NEGATIVE) Urine Methadone Screen (NEGATIVE) Ur Barbiturates Screen (NEGATIVE) Ur Phencyclidine Scrn (NEGATIVE) Ur Amphetamines Screen (NEGATIVE) U Benzodiazepines Scrn (NEGATIVE) U Oth Cocaine Metabols (NEGATIVE) U Cannabinoids Screen (NEGATIVE) Hepatitis A IgM Ab (NEGATIVE) Hep Bs Antigen (NEGATIVE) Hep B Core IgM Ab (NEGATIVE) Hepatitis C Antibody (NEGATIVE) Influenza Typ A,B (EIA) (NEGATIVE) Blood Type Antibody Screen 02/28/18 02/28/18 02/28/18 Range/Units 16:17 16:17 15:37 WBC (4.8-10.8) K/uL RBC (4.40-5.90) Mil/uL Hgb (12.0-18.0) g/dL Hct (35.0-51.0) % MCV (80.0-94.0) fL MCH (27.0-31.0) pg MCHC (33.0-37.0) g/dL RDW (11.5-14.5) % Plt Count (130-400) K/uL MPV (7.2-11.7) fL Neut % (Auto) (50.0-75.0) % Lymph % (Auto) (20.0-40.0) % [place] % (Auto) (0.0-10.0) % Eos % (Auto) (0.0-4.0) % Baso % (Auto) (0.0-2.0) % Neut # (Auto) (1.8-7.0) K/uL Lymph # (Auto) (1.0-4.3) K/uL [place] # (Auto) (0.0-0.8) K/uL Eos # (Auto) (0.0-0.7) K/uL Baso # (Auto) (0.0-0.2) K/uL Neutrophils % (Manual) (50-75) % Band Neutrophils % (0-2) % Lymphocytes % (Manual) (20-40) % Monocytes % (Manual) (0-10) % Platelet Estimate (NORMAL) Polychromasia Hypochromasia (manual) Anisocytosis (manual) Target Cells PT (9.7-12.2) SECONDS INR APTT (21-34) SECONDS Puncture Site pCO2 (35-45) mm/Hg pO2 (30-55) mm/Hg HCO3 (21-28) mmol/L ABG pH (7.35-7.45) ABG Total CO2 (22-28) mmol/L ABG O2 Saturation (95-98) % ABG Base Excess (-2.0-3.0) mmol/L ABG Hemoglobin (11.7-17.4) g/dL ABG Carboxyhemoglobin (0.5-1.5) % POC ABG HHb (Measured) (0.0-5.0) % ABG Methemoglobin (0.0-3.0) % [place]atinder Test ABG Potassium (3.6-5.2) mmol/L VBG pH (7.32-7.43) VBG pCO2 (40-60) mmHg VBG HCO3 mmol/L VBG Total CO2 (22-28) mmol/L VBG O2 Sat (Calc) (40-65) % VBG Base Excess (0.0-2.0) mmol/L VBG Potassium (3.6-5.2) mmol/L A-a O2 Difference mm/Hg Respiratory Index Hgb O2 Saturation (95.0-98.0) % Sodium (132-148) mmol/l Chloride (98-107) mmol/L Glucose (75-110) mg/dl Lactate (0.7-2.1) mmol/L Vent Mode Mechanical Rate FiO2 % Tidal Volume PEEP Crit Value Called To Crit Value Called By Crit Value Read Back Blood Gas Notified Time Potassium (3.6-5.2) mmol/L Carbon Dioxide (22-30) mmol/L Anion Gap (10-20) BUN (9-20) mg/dL Creatinine (0.8-1.5) mg/dL Est GFR ( Amer) Est GFR (Non-Af Amer) POC Glucose (mg/dL) (65-110) mg/dL Random Glucose (75-110) mg/dL Lactic Acid (0.7-2.1) mmol/L Calcium (8.6-10.4) mg/dl Phosphorus (2.5-4.5) mg/dL Magnesium (1.6-2.3) mg/dL Total Bilirubin (0.2-1.3) mg/dL Direct Bilirubin (0.0-0.4) mg/dL AST (17-59) U/L ALT (21-72) U/L Alkaline Phosphatase (38-126) U/L Ammonia (9-33) umol/L Total Creatine Kinase (55-170) U/L CK-MB (Mass) (0.0-3.38) ng/mL Troponin I (0.00-0.120) ng/mL C-React Prot High Sens (1.00-3.00) mg/L NT-Pro-B Natriuret Pep (0-900) pg/mL Total Protein (6.3-8.3) g/dL Albumin (3.5-5.0) g/dL Globulin (2.2-3.9) gm/dL Albumin/Globulin Ratio (1.0-2.1) Lipase (23-300) U/L Arterial Blood Potassium (3.6-5.2) mmol/L Venous Blood Potassium (3.6-5.2) mmol/L Urine Color Darlyn (YELLOW) Urine Clarity Hazy (Clear) Urine pH 5.0 (5.0-8.0) Ur Specific [place] 1.023 (1.003-1.030) Urine Protein 1+ H (NEGATIVE) mg/dL Urine Glucose (UA) Normal (Normal) mg/dL Urine Ketones Negative (NEGATIVE) mg/dL Urine Blood Negative (NEGATIVE) Urine Nitrate Negative (NEGATIVE) Urine Bilirubin 1+ H (NEGATIVE) Urine Urobilinogen 4.0 (0.2-1.0) mg/dL Ur Leukocyte Esterase Neg (Negative) Linda/uL Urine WBC (Auto) 1 (0-5) /hpf Urine RBC (Auto) 1 (0-3) /hpf Urine Bacteria Rare (<OCC) Hyaline Casts 3-5 H (0-2) /lpf Urine Opiates Screen Positive H (NEGATIVE) Urine Methadone Screen Negative (NEGATIVE) Ur Barbiturates Screen Negative (NEGATIVE) Ur Phencyclidine Scrn Negative (NEGATIVE) Ur Amphetamines Screen Negative (NEGATIVE) U Benzodiazepines Scrn Positive (NEGATIVE) U Oth Cocaine Metabols Negative (NEGATIVE) U Cannabinoids Screen Negative (NEGATIVE) Hepatitis A IgM Ab (NEGATIVE) Hep Bs Antigen (NEGATIVE) Hep B Core IgM Ab (NEGATIVE) Hepatitis C Antibody (NEGATIVE) Influenza Typ A,B (EIA) (NEGATIVE) Blood Type O POSITIVE Antibody Screen Negative 02/28/18 02/28/18 02/28/18 Range/Units 15:37 15:37 15:37 WBC 11.3 H (4.8-10.8) K/uL RBC 3.62 L (4.40-5.90) Mil/uL Hgb 9.6 L (12.0-18.0) g/dL Hct 31.5 L (35.0-51.0) % MCV 87.0 D (80.0-94.0) fL MCH 26.4 L (27.0-31.0) pg MCHC 30.3 L (33.0-37.0) g/dL RDW 21.1 H (11.5-14.5) % Plt Count 155 (130-400) K/uL MPV 8.1 (7.2-11.7) fL Neut % (Auto) 84.7 H (50.0-75.0) % Lymph % (Auto) 5.1 L (20.0-40.0) % [place] % (Auto) 9.1 (0.0-10.0) % Eos % (Auto) 0.0 (0.0-4.0) % Baso % (Auto) 1.1 (0.0-2.0) % Neut # (Auto) 9.6 H (1.8-7.0) K/uL Lymph # (Auto) 0.6 L (1.0-4.3) K/uL [place] # (Auto) 1.0 H (0.0-0.8) K/uL Eos # (Auto) 0.0 (0.0-0.7) K/uL Baso # (Auto) 0.1 (0.0-0.2) K/uL Neutrophils % (Manual) 91 H (50-75) % Band Neutrophils % 1 (0-2) % Lymphocytes % (Manual) 2 L (20-40) % Monocytes % (Manual) 6 (0-10) % Platelet Estimate Normal (NORMAL) Polychromasia Slight Hypochromasia (manual) Slight Anisocytosis (manual) Moderate Target Cells PT 19.3 H (9.7-12.2) SECONDS INR 1.8 APTT 39 H (21-34) SECONDS Puncture Site pCO2 (35-45) mm/Hg pO2 (30-55) mm/Hg HCO3 (21-28) mmol/L ABG pH (7.35-7.45) ABG Total CO2 (22-28) mmol/L ABG O2 Saturation (95-98) % ABG Base Excess (-2.0-3.0) mmol/L ABG Hemoglobin (11.7-17.4) g/dL ABG Carboxyhemoglobin (0.5-1.5) % POC ABG HHb (Measured) (0.0-5.0) % ABG Methemoglobin (0.0-3.0) % [place] Test ABG Potassium (3.6-5.2) mmol/L VBG pH (7.32-7.43) VBG pCO2 (40-60) mmHg VBG HCO3 mmol/L VBG Total CO2 (22-28) mmol/L VBG O2 Sat (Calc) (40-65) % VBG Base Excess (0.0-2.0) mmol/L VBG Potassium (3.6-5.2) mmol/L A-a O2 Difference mm/Hg Respiratory Index Hgb O2 Saturation (95.0-98.0) % Sodium 139 (132-148) mmol/l Chloride 103 (98-107) mmol/L Glucose (75-110) mg/dl Lactate (0.7-2.1) mmol/L Vent Mode Mechanical Rate FiO2 % Tidal Volume PEEP Crit Value Called To Crit Value Called By Crit Value Read Back Blood Gas Notified Time Potassium 6.0 H (3.6-5.2) mmol/L Carbon Dioxide 26 (22-30) mmol/L Anion Gap 17 (10-20) BUN 30 H (9-20) mg/dL Creatinine 2.0 H (0.8-1.5) mg/dL Est GFR ( Amer) 41 Est GFR (Non-Af Amer) 34 POC Glucose (mg/dL) (65-110) mg/dL Random Glucose 139 H D (75-110) mg/dL Lactic Acid (0.7-2.1) mmol/L Calcium 7.5 L (8.6-10.4) mg/dl Phosphorus (2.5-4.5) mg/dL Magnesium (1.6-2.3) mg/dL Total Bilirubin 2.2 H (0.2-1.3) mg/dL Direct Bilirubin (0.0-0.4) mg/dL AST 757 H D (17-59) U/L ALT 100 H D (21-72) U/L Alkaline Phosphatase 748 H D (38-126) U/L Ammonia (9-33) umol/L Total Creatine Kinase 185 H (55-170) U/L CK-MB (Mass) 1.22 (0.0-3.38) ng/mL Troponin I 0.0210 (0.00-0.120) ng/mL C-React Prot High Sens (1.00-3.00) mg/L NT-Pro-B Natriuret Pep 5360 H (0-900) pg/mL Total Protein 7.1 (6.3-8.3) g/dL Albumin 2.5 L D (3.5-5.0) g/dL Globulin 4.6 H (2.2-3.9) gm/dL Albumin/Globulin Ratio 0.6 L (1.0-2.1) Lipase 31 (23-300) U/L Arterial Blood Potassium (3.6-5.2) mmol/L Venous Blood Potassium (3.6-5.2) mmol/L Urine Color (YELLOW) Urine Clarity (Clear) Urine pH (5.0-8.0) Ur Specific [place] (1.003-1.030) Urine Protein (NEGATIVE) mg/dL Urine Glucose (UA) (Normal) mg/dL Urine Ketones (NEGATIVE) mg/dL Urine Blood (NEGATIVE) Urine Nitrate (NEGATIVE) Urine Bilirubin (NEGATIVE) Urine Urobilinogen (0.2-1.0) mg/dL Ur Leukocyte Esterase (Negative) Linda/uL Urine WBC (Auto) (0-5) /hpf Urine RBC (Auto) (0-3) /hpf Urine Bacteria (<OCC) Hyaline Casts (0-2) /lpf Urine Opiates Screen (NEGATIVE) Urine Methadone Screen (NEGATIVE) Ur Barbiturates Screen (NEGATIVE) Ur Phencyclidine Scrn (NEGATIVE) Ur Amphetamines Screen (NEGATIVE) U Benzodiazepines Scrn (NEGATIVE) U Oth Cocaine Metabols (NEGATIVE) U Cannabinoids Screen (NEGATIVE) Hepatitis A IgM Ab (NEGATIVE) Hep Bs Antigen (NEGATIVE) Hep B Core IgM Ab (NEGATIVE) Hepatitis C Antibody (NEGATIVE) Influenza Typ A,B (EIA) (NEGATIVE) Blood Type Antibody Screen 02/28/18 02/28/18 Range/Units 15:30 15:12 WBC (4.8-10.8) K/uL RBC (4.40-5.90) Mil/uL Hgb (12.0-18.0) g/dL Hct (35.0-51.0) % MCV (80.0-94.0) fL MCH (27.0-31.0) pg MCHC (33.0-37.0) g/dL RDW (11.5-14.5) % Plt Count (130-400) K/uL MPV (7.2-11.7) fL Neut % (Auto) (50.0-75.0) % Lymph % (Auto) (20.0-40.0) % Schleicher % (Auto) (0.0-10.0) % Eos % (Auto) (0.0-4.0) % Baso % (Auto) (0.0-2.0) % Neut # (Auto) (1.8-7.0) K/uL Lymph # (Auto) (1.0-4.3) K/uL Schleicher # (Auto) (0.0-0.8) K/uL Eos # (Auto) (0.0-0.7) K/uL Baso # (Auto) (0.0-0.2) K/uL Neutrophils % (Manual) (50-75) % Band Neutrophils % (0-2) % Lymphocytes % (Manual) (20-40) % Monocytes % (Manual) (0-10) % Platelet Estimate (NORMAL) Polychromasia Hypochromasia (manual) Anisocytosis (manual) Target Cells PT (9.7-12.2) SECONDS INR APTT (21-34) SECONDS Puncture Site pCO2 (35-45) mm/Hg pO2 38 (30-55) mm/Hg HCO3 (21-28) mmol/L ABG pH (7.35-7.45) ABG Total CO2 (22-28) mmol/L ABG O2 Saturation (95-98) % ABG Base Excess (-2.0-3.0) mmol/L ABG Hemoglobin (11.7-17.4) g/dL ABG Carboxyhemoglobin (0.5-1.5) % POC ABG HHb (Measured) (0.0-5.0) % ABG Methemoglobin (0.0-3.0) % Satinder Test ABG Potassium (3.6-5.2) mmol/L VBG pH 7.18 L* (7.32-7.43) VBG pCO2 65 H (40-60) mmHg VBG HCO3 19.8 mmol/L VBG Total CO2 26.3 (22-28) mmol/L VBG O2 Sat (Calc) 76.3 H (40-65) % VBG Base Excess -5.2 L (0.0-2.0) mmol/L VBG Potassium 5.7 H (3.6-5.2) mmol/L A-a O2 Difference mm/Hg Respiratory Index Hgb O2 Saturation (95.0-98.0) % Sodium 138.0 (132-148) mmol/l Chloride 101.0 (98-107) mmol/L Glucose 125 H (75-110) mg/dl Lactate 7.0 H* (0.7-2.1) mmol/L Vent Mode Mechanical Rate FiO2 % Tidal Volume PEEP Crit Value Called To imm Crit Value Called By Ga.rt Crit Value Read Back Y Blood Gas Notified Time 1541 Potassium (3.6-5.2) mmol/L Carbon Dioxide (22-30) mmol/L Anion Gap (10-20) BUN (9-20) mg/dL Creatinine (0.8-1.5) mg/dL Est GFR ( Amer) Est GFR (Non-Af Amer) POC Glucose (mg/dL) 159 H (65-110) mg/dL Random Glucose (75-110) mg/dL Lactic Acid (0.7-2.1) mmol/L Calcium (8.6-10.4) mg/dl Phosphorus (2.5-4.5) mg/dL Magnesium (1.6-2.3) mg/dL Total Bilirubin (0.2-1.3) mg/dL Direct Bilirubin (0.0-0.4) mg/dL AST (17-59) U/L ALT (21-72) U/L Alkaline Phosphatase (38-126) U/L Ammonia (9-33) umol/L Total Creatine Kinase (55-170) U/L CK-MB (Mass) (0.0-3.38) ng/mL Troponin I (0.00-0.120) ng/mL C-React Prot High Sens (1.00-3.00) mg/L NT-Pro-B Natriuret Pep (0-900) pg/mL Total Protein (6.3-8.3) g/dL Albumin (3.5-5.0) g/dL Globulin (2.2-3.9) gm/dL Albumin/Globulin Ratio (1.0-2.1) Lipase (23-300) U/L Arterial Blood Potassium (3.6-5.2) mmol/L Venous Blood Potassium 5.7 H (3.6-5.2) mmol/L Urine Color (YELLOW) Urine Clarity (Clear) Urine pH (5.0-8.0) Ur Specific [place] (1.003-1.030) Urine Protein (NEGATIVE) mg/dL Urine Glucose (UA) (Normal) mg/dL Urine Ketones (NEGATIVE) mg/dL Urine Blood (NEGATIVE) Urine Nitrate (NEGATIVE) Urine Bilirubin (NEGATIVE) Urine Urobilinogen (0.2-1.0) mg/dL Ur Leukocyte Esterase (Negative) Linda/uL Urine WBC (Auto) (0-5) /hpf Urine RBC (Auto) (0-3) /hpf Urine Bacteria (<OCC) Hyaline Casts (0-2) /lpf Urine Opiates Screen (NEGATIVE) Urine Methadone Screen (NEGATIVE) Ur Barbiturates Screen (NEGATIVE) Ur Phencyclidine Scrn (NEGATIVE) Ur Amphetamines Screen (NEGATIVE) U Benzodiazepines Scrn (NEGATIVE) U Oth Cocaine Metabols (NEGATIVE) U Cannabinoids Screen (NEGATIVE) Hepatitis A IgM Ab (NEGATIVE) Hep Bs Antigen (NEGATIVE) Hep B Core IgM Ab (NEGATIVE) Hepatitis C Antibody (NEGATIVE) Influenza Typ A,B (EIA) (NEGATIVE) Blood Type Antibody Screen Laboratory Results - last 24 hr 02/28/18 02/28/18 02/28/18 15:12 15:30 15:37 WBC 11.3 H RBC 3.62 L Hgb 9.6 L Hct 31.5 L MCV 87.0 D MCH 26.4 L MCHC 30.3 L RDW 21.1 H Plt Count 155 MPV 8.1 Neut % (Auto) 84.7 H Lymph % (Auto) 5.1 L Schleicher % (Auto) 9.1 Eos % (Auto) 0.0 Baso % (Auto) 1.1 Neut # (Auto) 9.6 H Lymph # (Auto) 0.6 L Schleicher # (Auto) 1.0 H Eos # (Auto) 0.0 Baso # (Auto) 0.1 Neutrophils % (Manual) 91 H Band Neutrophils % 1 Lymphocytes % (Manual) 2 L Monocytes % (Manual) 6 Platelet Estimate Normal Polychromasia Slight Hypochromasia (manual) Slight Anisocytosis (manual) Moderate Target Cells PT INR APTT Puncture Site pCO2 pO2 38 HCO3 ABG pH ABG Total CO2 ABG O2 Saturation ABG Base Excess ABG Hemoglobin ABG Carboxyhemoglobin POC ABG HHb (Measured) ABG Methemoglobin Satinder Test ABG Potassium VBG pH 7.18 L* VBG pCO2 65 H VBG HCO3 19.8 VBG Total CO2 26.3 VBG O2 Sat (Calc) 76.3 H VBG Base Excess -5.2 L VBG Potassium 5.7 H A-a O2 Difference Respiratory Index Hgb O2 Saturation Sodium 138.0 Chloride 101.0 Glucose 125 H Lactate 7.0 H* Vent Mode Mechanical Rate FiO2 Tidal Volume PEEP Crit Value Called To Dr garcia Crit Value Called By Ga.rt Crit Value Read Back Y Blood Gas Notified Time 1541 Potassium Carbon Dioxide Anion Gap BUN Creatinine Est GFR ( Amer) Est GFR (Non-Af Amer) POC Glucose (mg/dL) 159 H Random Glucose Lactic Acid Calcium Phosphorus Magnesium Total Bilirubin Direct Bilirubin AST ALT Alkaline Phosphatase Ammonia Total Creatine Kinase CK-MB (Mass) Troponin I C-React Prot High Sens NT-Pro-B Natriuret Pep Total Protein Albumin Globulin Albumin/Globulin Ratio Lipase Arterial Blood Potassium Venous Blood Potassium 5.7 H Urine Color Urine Clarity Urine pH Ur Specific [place] Urine Protein Urine Glucose (UA) Urine Ketones Urine Blood Urine Nitrate Urine Bilirubin Urine Urobilinogen Ur Leukocyte Esterase Urine WBC (Auto) Urine RBC (Auto) Urine Bacteria Hyaline Casts Urine Opiates Screen Urine Methadone Screen Ur Barbiturates Screen Ur Phencyclidine Scrn Ur Amphetamines Screen U Benzodiazepines Scrn U Oth Cocaine Metabols U Cannabinoids Screen Hepatitis A IgM Ab Hep Bs Antigen Hep B Core IgM Ab Hepatitis C Antibody Influenza Typ A,B (EIA) Blood Type Antibody Screen 02/28/18 02/28/18 02/28/18 15:37 15:37 15:37 WBC RBC Hgb Hct MCV MCH MCHC RDW Plt Count MPV Neut % (Auto) Lymph % (Auto) Schleicher % (Auto) Eos % (Auto) Baso % (Auto) Neut # (Auto) Lymph # (Auto) Schleicher # (Auto) Eos # (Auto) Baso # (Auto) Neutrophils % (Manual) Band Neutrophils % Lymphocytes % (Manual) Monocytes % (Manual) Platelet Estimate Polychromasia Hypochromasia (manual) Anisocytosis (manual) Target Cells PT 19.3 H INR 1.8 APTT 39 H Puncture Site pCO2 pO2 HCO3 ABG pH ABG Total CO2 ABG O2 Saturation ABG Base Excess ABG Hemoglobin ABG Carboxyhemoglobin POC ABG HHb (Measured) ABG Methemoglobin Satinder Test ABG Potassium VBG pH VBG pCO2 VBG HCO3 VBG Total CO2 VBG O2 Sat (Calc) VBG Base Excess VBG Potassium A-a O2 Difference Respiratory Index Hgb O2 Saturation Sodium 139 Chloride 103 Glucose Lactate Vent Mode Mechanical Rate FiO2 Tidal Volume PEEP Crit Value Called To Crit Value Called By Crit Value Read Back Blood Gas Notified Time Potassium 6.0 H Carbon Dioxide 26 Anion Gap 17 BUN 30 H Creatinine 2.0 H Est GFR ( Amer) 41 Est GFR (Non-Af Amer) 34 POC Glucose (mg/dL) Random Glucose 139 H D Lactic Acid Calcium 7.5 L Phosphorus Magnesium Total Bilirubin 2.2 H Direct Bilirubin AST 757 H D ALT 100 H D Alkaline Phosphatase 748 H D Ammonia Total Creatine Kinase 185 H CK-MB (Mass) 1.22 Troponin I 0.0210 C-React Prot High Sens NT-Pro-B Natriuret Pep 5360 H Total Protein 7.1 Albumin 2.5 L D Globulin 4.6 H Albumin/Globulin Ratio 0.6 L Lipase 31 Arterial Blood Potassium Venous Blood Potassium Urine Color Urine Clarity Urine pH Ur Specific [place] Urine Protein Urine Glucose (UA) Urine Ketones Urine Blood Urine Nitrate Urine Bilirubin Urine Urobilinogen Ur Leukocyte Esterase Urine WBC (Auto) Urine RBC (Auto) Urine Bacteria Hyaline Casts Urine Opiates Screen Urine Methadone Screen Ur Barbiturates Screen Ur Phencyclidine Scrn Ur Amphetamines Screen U Benzodiazepines Scrn U Oth Cocaine Metabols U Cannabinoids Screen Hepatitis A IgM Ab Hep Bs Antigen Hep B Core IgM Ab Hepatitis C Antibody Influenza Typ A,B (EIA) Blood Type O POSITIVE Antibody Screen Negative 02/28/18 02/28/18 02/28/18 16:17 16:17 17:18 WBC RBC Hgb Hct MCV MCH MCHC RDW Plt Count MPV Neut % (Auto) Lymph % (Auto) Schleicher % (Auto) Eos % (Auto) Baso % (Auto) Neut # (Auto) Lymph # (Auto) Schleicher # (Auto) Eos # (Auto) Baso # (Auto) Neutrophils % (Manual) Band Neutrophils % Lymphocytes % (Manual) Monocytes % (Manual) Platelet Estimate Polychromasia Hypochromasia (manual) Anisocytosis (manual) Target Cells PT INR APTT Puncture Site pCO2 pO2 HCO3 ABG pH ABG Total CO2 ABG O2 Saturation ABG Base Excess ABG Hemoglobin ABG Carboxyhemoglobin POC ABG HHb (Measured) ABG Methemoglobin Satinder Test ABG Potassium VBG pH VBG pCO2 VBG HCO3 VBG Total CO2 VBG O2 Sat (Calc) VBG Base Excess VBG Potassium A-a O2 Difference Respiratory Index Hgb O2 Saturation Sodium Chloride Glucose Lactate Vent Mode Mechanical Rate FiO2 Tidal Volume PEEP Crit Value Called To Crit Value Called By Crit Value Read Back Blood Gas Notified Time Potassium Carbon Dioxide Anion Gap BUN Creatinine Est GFR ( Amer) Est GFR (Non-Af Amer) POC Glucose (mg/dL) Random Glucose Lactic Acid Calcium Phosphorus Magnesium Total Bilirubin Direct Bilirubin AST ALT Alkaline Phosphatase Ammonia Total Creatine Kinase CK-MB (Mass) Troponin I C-React Prot High Sens NT-Pro-B Natriuret Pep Total Protein Albumin Globulin Albumin/Globulin Ratio Lipase Arterial Blood Potassium Venous Blood Potassium Urine Color Darlyn Urine Clarity Hazy Urine pH 5.0 Ur Specific [place] 1.023 Urine Protein 1+ H Urine Glucose (UA) Normal Urine Ketones Negative Urine Blood Negative Urine Nitrate Negative Urine Bilirubin 1+ H Urine Urobilinogen 4.0 Ur Leukocyte Esterase Neg Urine WBC (Auto) 1 Urine RBC (Auto) 1 Urine Bacteria Rare Hyaline Casts 3-5 H Urine Opiates Screen Positive H Urine Methadone Screen Negative Ur Barbiturates Screen Negative Ur Phencyclidine Scrn Negative Ur Amphetamines Screen Negative U Benzodiazepines Scrn Positive U Oth Cocaine Metabols Negative U Cannabinoids Screen Negative Hepatitis A IgM Ab Hep Bs Antigen Hep B Core IgM Ab Hepatitis C Antibody Influenza Typ A,B (EIA) Blood Type Antibody Screen 02/28/18 02/28/18 02/28/18 17:52 19:08 23:39 WBC RBC Hgb Hct MCV MCH MCHC RDW Plt Count MPV Neut % (Auto) Lymph % (Auto) Schleicher % (Auto) Eos % (Auto) Baso % (Auto) Neut # (Auto) Lymph # (Auto) Schleicher # (Auto) Eos # (Auto) Baso # (Auto) Neutrophils % (Manual) Band Neutrophils % Lymphocytes % (Manual) Monocytes % (Manual) Platelet Estimate Polychromasia Hypochromasia (manual) Anisocytosis (manual) Target Cells PT INR APTT Puncture Site Rba pCO2 40 pO2 94 HCO3 21.9 ABG pH 7.34 L ABG Total CO2 22.8 ABG O2 Saturation 98.5 H ABG Base Excess -3.9 L ABG Hemoglobin ABG Carboxyhemoglobin POC ABG HHb (Measured) ABG Methemoglobin Satinder Test Na ABG Potassium 5.5 H VBG pH VBG pCO2 VBG HCO3 VBG Total CO2 VBG O2 Sat (Calc) VBG Base Excess VBG Potassium A-a O2 Difference 284.0 Respiratory Index 3.0 Hgb O2 Saturation Sodium 140.0 Chloride 109.0 H Glucose 92 Lactate 3.9 H Vent Mode Prvc Mechanical Rate 20 FiO2 60.0 Tidal Volume 500 PEEP 5 Crit Value Called To Crit Value Called By Crit Value Read Back Blood Gas Notified Time Potassium Carbon Dioxide Anion Gap BUN Creatinine Est GFR ( Amer) Est GFR (Non-Af Amer) POC Glucose (mg/dL) 84 Random Glucose Lactic Acid Calcium Phosphorus Magnesium Total Bilirubin Direct Bilirubin AST ALT Alkaline Phosphatase Ammonia 93 H Total Creatine Kinase CK-MB (Mass) Troponin I C-React Prot High Sens NT-Pro-B Natriuret Pep Total Protein Albumin Globulin Albumin/Globulin Ratio Lipase Arterial Blood Potassium 5.5 H Venous Blood Potassium Urine Color Urine Clarity Urine pH Ur Specific [place] Urine Protein Urine Glucose (UA) Urine Ketones Urine Blood Urine Nitrate Urine Bilirubin Urine Urobilinogen Ur Leukocyte Esterase Urine WBC (Auto) Urine RBC (Auto) Urine Bacteria Hyaline Casts Urine Opiates Screen Urine Methadone Screen Ur Barbiturates Screen Ur Phencyclidine Scrn Ur Amphetamines Screen U Benzodiazepines Scrn U Oth Cocaine Metabols U Cannabinoids Screen Hepatitis A IgM Ab Hep Bs Antigen Hep B Core IgM Ab Hepatitis C Antibody Influenza Typ A,B (EIA) Blood Type Antibody Screen 03/01/18 03/01/18 03/01/18 00:38 05:12 05:20 WBC RBC Hgb Hct MCV MCH MCHC RDW Plt Count MPV Neut % (Auto) Lymph % (Auto) Schleicher % (Auto) Eos % (Auto) Baso % (Auto) Neut # (Auto) Lymph # (Auto) Schleicher # (Auto) Eos # (Auto) Baso # (Auto) Neutrophils % (Manual) Band Neutrophils % Lymphocytes % (Manual) Monocytes % (Manual) Platelet Estimate Polychromasia Hypochromasia (manual) Anisocytosis (manual) Target Cells PT INR APTT Puncture Site Rb pCO2 31 L pO2 74 L HCO3 23.9 ABG pH 7.46 H ABG Total CO2 23.0 ABG O2 Saturation 97.6 ABG Base Excess -1.3 ABG Hemoglobin 9.2 L ABG Carboxyhemoglobin 2.1 H POC ABG HHb (Measured) 2.3 ABG Methemoglobin 0.5 Satinder Test Na ABG Potassium VBG pH VBG pCO2 VBG HCO3 VBG Total CO2 VBG O2 Sat (Calc) VBG Base Excess VBG Potassium A-a O2 Difference 315.0 Respiratory Index 4.3 Hgb O2 Saturation 95.1 Sodium Chloride Glucose Lactate Vent Mode Prvc Mechanical Rate 20 FiO2 60.0 Tidal Volume 500 PEEP 5 Crit Value Called To Crit Value Called By Crit Value Read Back Blood Gas Notified Time Potassium Carbon Dioxide Anion Gap BUN Creatinine Est GFR ( Amer) Est GFR (Non-Af Amer) POC Glucose (mg/dL) 60 L Random Glucose Lactic Acid 2.6 H Calcium Phosphorus Magnesium Total Bilirubin Direct Bilirubin AST ALT Alkaline Phosphatase Ammonia Total Creatine Kinase CK-MB (Mass) Troponin I C-React Prot High Sens NT-Pro-B Natriuret Pep Total Protein Albumin Globulin Albumin/Globulin Ratio Lipase Arterial Blood Potassium Venous Blood Potassium Urine Color Urine Clarity Urine pH Ur Specific [place] Urine Protein Urine Glucose (UA) Urine Ketones Urine Blood Urine Nitrate Urine Bilirubin Urine Urobilinogen Ur Leukocyte Esterase Urine WBC (Auto) Urine RBC (Auto) Urine Bacteria Hyaline Casts Urine Opiates Screen Urine Methadone Screen Ur Barbiturates Screen Ur Phencyclidine Scrn Ur Amphetamines Screen U Benzodiazepines Scrn U Oth Cocaine Metabols U Cannabinoids Screen Hepatitis A IgM Ab Hep Bs Antigen Hep B Core IgM Ab Hepatitis C Antibody Influenza Typ A,B (EIA) Blood Type Antibody Screen 03/01/18 03/01/18 03/01/18 05:23 05:55 05:55 WBC 10.5 RBC 3.56 L Hgb 9.6 L Hct 29.7 L MCV 83.5 D MCH 27.1 MCHC 32.4 L RDW 20.9 H Plt Count 126 L D MPV 8.5 Neut % (Auto) 87.2 H Lymph % (Auto) 4.6 L Schleicher % (Auto) 7.5 Eos % (Auto) 0.1 Baso % (Auto) 0.6 Neut # (Auto) 9.1 H Lymph # (Auto) 0.5 L Schleicher # (Auto) 0.8 Eos # (Auto) 0.0 Baso # (Auto) 0.1 Neutrophils % (Manual) 62 Band Neutrophils % 30 H* Lymphocytes % (Manual) 3 L Monocytes % (Manual) 5 Platelet Estimate Normal Polychromasia Slight Hypochromasia (manual) Slight Anisocytosis (manual) Slight Target Cells Slight PT INR APTT Puncture Site pCO2 pO2 HCO3 ABG pH ABG Total CO2 ABG O2 Saturation ABG Base Excess ABG Hemoglobin ABG Carboxyhemoglobin POC ABG HHb (Measured) ABG Methemoglobin Satinder Test ABG Potassium VBG pH VBG pCO2 VBG HCO3 VBG Total CO2 VBG O2 Sat (Calc) VBG Base Excess VBG Potassium A-a O2 Difference Respiratory Index Hgb O2 Saturation Sodium 139 Chloride 105 Glucose Lactate Vent Mode Mechanical Rate FiO2 Tidal Volume PEEP Crit Value Called To Crit Value Called By Crit Value Read Back Blood Gas Notified Time Potassium 4.1 Carbon Dioxide 26 Anion Gap 12 BUN 37 H Creatinine 1.5 Est GFR ( Amer) 57 Est GFR (Non-Af Amer) 47 POC Glucose (mg/dL) 75 Random Glucose 71 L D Lactic Acid Calcium 7.0 L Phosphorus 3.5 Magnesium 1.6 Total Bilirubin 2.6 H Direct Bilirubin 2.2 H AST 2498 H ALT 362 H D Alkaline Phosphatase 1027 H Ammonia Total Creatine Kinase CK-MB (Mass) Troponin I C-React Prot High Sens NT-Pro-B Natriuret Pep Total Protein 6.4 Albumin 2.0 L Globulin 4.4 H Albumin/Globulin Ratio 0.5 L Lipase Arterial Blood Potassium Venous Blood Potassium Urine Color Urine Clarity Urine pH Ur Specific [place] Urine Protein Urine Glucose (UA) Urine Ketones Urine Blood Urine Nitrate Urine Bilirubin Urine Urobilinogen Ur Leukocyte Esterase Urine WBC (Auto) Urine RBC (Auto) Urine Bacteria Hyaline Casts Urine Opiates Screen Urine Methadone Screen Ur Barbiturates Screen Ur Phencyclidine Scrn Ur Amphetamines Screen U Benzodiazepines Scrn U Oth Cocaine Metabols U Cannabinoids Screen Hepatitis A IgM Ab Hep Bs Antigen Hep B Core IgM Ab Hepatitis C Antibody Negative Influenza Typ A,B (EIA) Blood Type Antibody Screen 03/01/18 03/01/18 05:55 05:55 WBC RBC Hgb Hct MCV MCH MCHC RDW Plt Count MPV Neut % (Auto) Lymph % (Auto) [place] % (Auto) Eos % (Auto) Baso % (Auto) Neut # (Auto) Lymph # (Auto) [place]leicher # (Auto) Eos # (Auto) Baso # (Auto) Neutrophils % (Manual) Band Neutrophils % Lymphocytes % (Manual) Monocytes % (Manual) Platelet Estimate Polychromasia Hypochromasia (manual) Anisocytosis (manual) Target Cells PT INR APTT Puncture Site pCO2 pO2 HCO3 ABG pH ABG Total CO2 ABG O2 Saturation ABG Base Excess ABG Hemoglobin ABG Carboxyhemoglobin POC ABG HHb (Measured) ABG Methemoglobin Satinder Test ABG Potassium VBG pH VBG pCO2 VBG HCO3 VBG Total CO2 VBG O2 Sat (Calc) VBG Base Excess VBG Potassium A-a O2 Difference Respiratory Index Hgb O2 Saturation Sodium Chloride Glucose Lactate Vent Mode Mechanical Rate FiO2 Tidal Volume PEEP Crit Value Called To Crit Value Called By Crit Value Read Back Blood Gas Notified Time Potassium Carbon Dioxide Anion Gap BUN Creatinine Est GFR ( Amer) Est GFR (Non-Af Amer) POC Glucose (mg/dL) Random Glucose Lactic Acid Calcium Phosphorus Magnesium Total Bilirubin Direct Bilirubin AST ALT Alkaline Phosphatase Ammonia Total Creatine Kinase CK-MB (Mass) Troponin I C-React Prot High Sens > 15.00 H NT-Pro-B Natriuret Pep Total Protein Albumin Globulin Albumin/Globulin Ratio Lipase Arterial Blood Potassium Venous Blood Potassium Urine Color Urine Clarity Urine pH Ur Specific [place] Urine Protein Urine Glucose (UA) Urine Ketones Urine Blood Urine Nitrate Urine Bilirubin Urine Urobilinogen Ur Leukocyte Esterase Urine WBC (Auto) Urine RBC (Auto) Urine Bacteria Hyaline Casts Urine Opiates Screen Urine Methadone Screen Ur Barbiturates Screen Ur Phencyclidine Scrn Ur Amphetamines Screen U Benzodiazepines Scrn U Oth Cocaine Metabols U Cannabinoids Screen Hepatitis A IgM Ab Negative Hep Bs Antigen Negative Hep B Core IgM Ab Negative Hepatitis C Antibody Negative Influenza Typ A,B (EIA) Blood Type Antibody Screen Radiology Impressions: Radiology Impressions Chest X-Ray 02/28/18 15:23 IMPRESSION: Continued interval progression of widespread pulmonary metastatic disease. Superimposed infection cannot be excluded. Correlate clinically. Endotracheal tube. Right-sided MediPort. Head CT 02/28/18 16:18 IMPRESSION: Examination markedly limited by motion and streak artifact. Nonspecific white matter changes. Generalized atrophy. EKG/Cardiology Studies: Cardiology / EKG Studies 02/28/18 15:13 EKG [ELECTROCARDIOGRAM] Stat Comment: Mode Of Transportation: BED Reason For Exam: cp 02/28/18 16:20 EKG [ELECTROCARDIOGRAM] Stat Comment: Mode Of Transportation: Reason For Exam: hyperpotassemia Fingerstick Blood Sugar Results: 75 Assessment/Plan - Assessment and Plan (Free Text) Assessment: 63 y/o male with PMHx of stage 4 colon CA with mets to liver and lungs, s/p colectomy and colostomy, in ICU for respiratory failure after being found unresponsive at home on 02/28. Neuro -patient sedated on propofol -patient intubated -not alert or awake CV -no acute issues -pending ECHO Pulm -patient with respiratory failure and intubated at home by EMS -admitting ABG: pH 7.46, pCO2 31, pO2 74 - respiratory alkalosis, possible 2/2 tachypnea? Nearly tachypnic RR low 20s, tachycardia HR 100s/110s -on duonebs q6h -PRVC 50%/500/5, with O2 sat 100% -repeat ABG qAM and reassess Renal -no acute issues -on NaCl 75mL/h -trend CMP daily GI -PMHx of colon CA stage 4 s/p colectomy -continue with colostomy care -begin tube feeding - jevity -pending abdominal US ID -treated for aspiration PNA -cefipime started 02/28 -metronidazole started 02/28 -tamiflu started 02/28, stop 03/02 after 5 doses -pending: blood cx, urine cx, legionella -ID, Dr. Pitt, following. Recs appreciated. Heme onc -patient with colon CA stage 4 with mets to liver and lungs. LFTs outstanding AST 2498, ALT 362, CRP>15. Mets to lungs significant on CXR. -pending palliative care consult to discuss goals of care with family, recs appreciated GI ppx: protonix 40 mg IV q12h DVT ppx: heparin 500U sc q12 diet: tube feeds jevity - started 03/[address] Dennis Mariscal PGY1 <Andrae Collins - Last Filed: 03/01/18 19:10> CCU Objective - Vital Signs / Intake & Output Vital Signs (Last 4 hours): Vital Signs Temp Pulse Resp BP Pulse Ox 03/01/18 16:00 98.1 F 114 H 21 100/51 L 98 03/01/18 15:32 116 H 20 99 Intake and Output (Last 8hrs): Intake & Output 03/01/18 03/01/18 03/01/18 06:59 14:59 22:59 Intake Total 657.8 554.7 174.0 Output Total 405 Balance 252.8 554.7 174.0 Weight 169 lb 14.4 oz Intake: IV 0 Intake, IV Amount 657.8 554.7 174.0 R chest Port-A-Cath 20.3 29.7 9.0 Right Port-A-Cath 637.5 525 150 Right Proximal Port 15 Output: Urine 405 Urethral (Fox) 405 - Patient Studies Lab Studies: Microbiology Studies 02/28/18 18:37 MRSA Culture (Admit) - Final Naris MRSA NOT DETECTED 02/28/18 16:17 Blood Culture - Preliminary Blood-Venous NO GROWTH AFTER 24 HOURS 02/28/18 15:15 Blood Culture - Preliminary Blood-Venous NO GROWTH AFTER 24 HOURS 02/28/18 20:36 Gram Stain - Final Trachasp Lab Studies 03/01/18 03/01/18 03/01/18 Range/Units 11:06 05:55 05:55 WBC (4.8-10.8) K/uL RBC (4.40-5.90) Mil/uL Hgb (12.0-18.0) g/dL Hct (35.0-51.0) % MCV (80.0-94.0) fL MCH (27.0-31.0) pg MCHC (33.0-37.0) g/dL RDW (11.5-14.5) % Plt Count (130-400) K/uL MPV (7.2-11.7) fL Neut % (Auto) (50.0-75.0) % Lymph % (Auto) (20.0-40.0) % Schleicher % (Auto) (0.0-10.0) % Eos % (Auto) (0.0-4.0) % Baso % (Auto) (0.0-2.0) % Neut # (Auto) (1.8-7.0) K/uL Lymph # (Auto) (1.0-4.3) K/uL Schleicher # (Auto) (0.0-0.8) K/uL Eos # (Auto) (0.0-0.7) K/uL Baso # (Auto) (0.0-0.2) K/uL Neutrophils % (Manual) (50-75) % Band Neutrophils % (0-2) % Lymphocytes % (Manual) (20-40) % Monocytes % (Manual) (0-10) % Platelet Estimate (NORMAL) Polychromasia Hypochromasia (manual) Anisocytosis (manual) Target Cells ESR (0-15) mm/hr Puncture Site pCO2 (35-45) mm/Hg pO2 (80-100) mm/Hg HCO3 (21-28) mmol/L ABG pH (7.35-7.45) ABG Total CO2 (22-28) mmol/L ABG O2 Saturation (95-98) % ABG Base Excess (-2.0-3.0) mmol/L ABG Hemoglobin (11.7-17.4) g/dL ABG Carboxyhemoglobin (0.5-1.5) % POC ABG HHb (Measured) (0.0-5.0) % ABG Methemoglobin (0.0-3.0) % Satinder Test ABG Potassium (3.6-5.2) mmol/L A-a O2 Difference mm/Hg Respiratory Index Hgb O2 Saturation (95.0-98.0) % Sodium (132-148) mmol/l Chloride (98-107) mmol/L Glucose (75-110) mg/dl Lactate (0.7-2.1) mmol/L Vent Mode Mechanical Rate FiO2 % Tidal Volume PEEP Potassium (3.6-5.2) mmol/L Carbon Dioxide (22-30) mmol/L Anion Gap (10-20) BUN (9-20) mg/dL Creatinine (0.8-1.5) mg/dL Est GFR ( Amer) Est GFR (Non-Af Amer) POC Glucose (mg/dL) 77 (65-110) mg/dL Random Glucose (75-110) mg/dL Lactic Acid (0.7-2.1) mmol/L Calcium (8.6-10.4) mg/dl Phosphorus (2.5-4.5) mg/dL Magnesium (1.6-2.3) mg/dL Total Bilirubin (0.2-1.3) mg/dL Direct Bilirubin (0.0-0.4) mg/dL AST (17-59) U/L ALT (21-72) U/L Alkaline Phosphatase (38-126) U/L C-React Prot High Sens > 15.00 H (1.00-3.00) mg/L Total Protein (6.3-8.3) g/dL Albumin (3.5-5.0) g/dL Globulin (2.2-3.9) gm/dL Albumin/Globulin Ratio (1.0-2.1) Arterial Blood Potassium (3.6-5.2) mmol/L Hepatitis A IgM Ab Negative (NEGATIVE) Hep Bs Antigen Negative (NEGATIVE) Hep B Core IgM Ab Negative (NEGATIVE) Hepatitis C Antibody Negative (NEGATIVE) 03/01/18 03/01/18 03/01/18 Range/Units 05:55 05:55 05:23 WBC 10.5 (4.8-10.8) K/uL RBC 3.56 L (4.40-5.90) Mil/uL Hgb 9.6 L (12.0-18.0) g/dL Hct 29.7 L (35.0-51.0) % MCV 83.5 D (80.0-94.0) fL MCH 27.1 (27.0-31.0) pg MCHC 32.4 L (33.0-37.0) g/dL RDW 20.9 H (11.5-14.5) % Plt Count 126 L D (130-400) K/uL MPV 8.5 (7.2-11.7) fL Neut % (Auto) 87.2 H (50.0-75.0) % Lymph % (Auto) 4.6 L (20.0-40.0) % Schleicher % (Auto) 7.5 (0.0-10.0) % Eos % (Auto) 0.1 (0.0-4.0) % Baso % (Auto) 0.6 (0.0-2.0) % Neut # (Auto) 9.1 H (1.8-7.0) K/uL Lymph # (Auto) 0.5 L (1.0-4.3) K/uL Schleicher # (Auto) 0.8 (0.0-0.8) K/uL Eos # (Auto) 0.0 (0.0-0.7) K/uL Baso # (Auto) 0.1 (0.0-0.2) K/uL Neutrophils % (Manual) 62 (50-75) % Band Neutrophils % 30 H* (0-2) % Lymphocytes % (Manual) 3 L (20-40) % Monocytes % (Manual) 5 (0-10) % Platelet Estimate Normal (NORMAL) Polychromasia Slight Hypochromasia (manual) Slight Anisocytosis (manual) Slight Target Cells Slight ESR 67 H (0-15) mm/hr Puncture Site pCO2 (35-45) mm/Hg pO2 (80-100) mm/Hg HCO3 (21-28) mmol/L ABG pH (7.35-7.45) ABG Total CO2 (22-28) mmol/L ABG O2 Saturation (95-98) % ABG Base Excess (-2.0-3.0) mmol/L ABG Hemoglobin (11.7-17.4) g/dL ABG Carboxyhemoglobin (0.5-1.5) % POC ABG HHb (Measured) (0.0-5.0) % ABG Methemoglobin (0.0-3.0) % Satinder Test ABG Potassium (3.6-5.2) mmol/L A-a O2 Difference mm/Hg Respiratory Index Hgb O2 Saturation (95.0-98.0) % Sodium 139 (132-148) mmol/l Chloride 105 (98-107) mmol/L Glucose (75-110) mg/dl Lactate (0.7-2.1) mmol/L Vent Mode Mechanical Rate FiO2 % Tidal Volume PEEP Potassium 4.1 (3.6-5.2) mmol/L Carbon Dioxide 26 (22-30) mmol/L Anion Gap 12 (10-20) BUN 37 H (9-20) mg/dL Creatinine 1.5 (0.8-1.5) mg/dL Est GFR ( Amer) 57 Est GFR (Non-Af Amer) 47 POC Glucose (mg/dL) 75 (65-110) mg/dL Random Glucose 71 L D (75-110) mg/dL Lactic Acid (0.7-2.1) mmol/L Calcium 7.0 L (8.6-10.4) mg/dl Phosphorus 3.5 (2.5-4.5) mg/dL Magnesium 1.6 (1.6-2.3) mg/dL Total Bilirubin 2.6 H (0.2-1.3) mg/dL Direct Bilirubin 2.2 H (0.0-0.4) mg/dL AST 2498 H (17-59) U/L ALT 362 H D (21-72) U/L Alkaline Phosphatase 1027 H (38-126) U/L C-React Prot High Sens (1.00-3.00) mg/L Total Protein 6.4 (6.3-8.3) g/dL Albumin 2.0 L (3.5-5.0) g/dL Globulin 4.4 H (2.2-3.9) gm/dL Albumin/Globulin Ratio 0.5 L (1.0-2.1) Arterial Blood Potassium (3.6-5.2) mmol/L Hepatitis A IgM Ab (NEGATIVE) Hep Bs Antigen (NEGATIVE) Hep B Core IgM Ab (NEGATIVE) Hepatitis C Antibody Negative (NEGATIVE) 03/01/18 03/01/18 03/01/18 Range/Units 05:20 05:12 00:38 WBC (4.8-10.8) K/uL RBC (4.40-5.90) Mil/uL Hgb (12.0-18.0) g/dL Hct (35.0-51.0) % MCV (80.0-94.0) fL MCH (27.0-31.0) pg MCHC (33.0-37.0) g/dL RDW (11.5-14.5) % Plt Count (130-400) K/uL MPV (7.2-11.7) fL Neut % (Auto) (50.0-75.0) % Lymph % (Auto) (20.0-40.0) % Schleicher % (Auto) (0.0-10.0) % Eos % (Auto) (0.0-4.0) % Baso % (Auto) (0.0-2.0) % Neut # (Auto) (1.8-7.0) K/uL Lymph # (Auto) (1.0-4.3) K/uL Schleicher # (Auto) (0.0-0.8) K/uL Eos # (Auto) (0.0-0.7) K/uL Baso # (Auto) (0.0-0.2) K/uL Neutrophils % (Manual) (50-75) % Band Neutrophils % (0-2) % Lymphocytes % (Manual) (20-40) % Monocytes % (Manual) (0-10) % Platelet Estimate (NORMAL) Polychromasia Hypochromasia (manual) Anisocytosis (manual) Target Cells ESR (0-15) mm/hr Puncture Site Rb pCO2 31 L (35-45) mm/Hg pO2 74 L (80-100) mm/Hg HCO3 23.9 (21-28) mmol/L ABG pH 7.46 H (7.35-7.45) ABG Total CO2 23.0 (22-28) mmol/L ABG O2 Saturation 97.6 (95-98) % ABG Base Excess -1.3 (-2.0-3.0) mmol/L ABG Hemoglobin 9.2 L (11.7-17.4) g/dL ABG Carboxyhemoglobin 2.1 H (0.5-1.5) % POC ABG HHb (Measured) 2.3 (0.0-5.0) % ABG Methemoglobin 0.5 (0.0-3.0) % Satinder Test Na ABG Potassium (3.6-5.2) mmol/L A-a O2 Difference 315.0 mm/Hg Respiratory Index 4.3 Hgb O2 Saturation 95.1 (95.0-98.0) % Sodium (132-148) mmol/l Chloride (98-107) mmol/L Glucose (75-110) mg/dl Lactate (0.7-2.1) mmol/L Vent Mode Prvc Mechanical Rate 20 FiO2 60.0 % Tidal Volume 500 PEEP 5 Potassium (3.6-5.2) mmol/L Carbon Dioxide (22-30) mmol/L Anion Gap (10-20) BUN (9-20) mg/dL Creatinine (0.8-1.5) mg/dL Est GFR ( Amer) Est GFR (Non-Af Amer) POC Glucose (mg/dL) 60 L (65-110) mg/dL Random Glucose (75-110) mg/dL Lactic Acid 2.6 H (0.7-2.1) mmol/L Calcium (8.6-10.4) mg/dl Phosphorus (2.5-4.5) mg/dL Magnesium (1.6-2.3) mg/dL Total Bilirubin (0.2-1.3) mg/dL Direct Bilirubin (0.0-0.4) mg/dL AST (17-59) U/L ALT (21-72) U/L Alkaline Phosphatase (38-126) U/L C-React Prot High Sens (1.00-3.00) mg/L Total Protein (6.3-8.3) g/dL Albumin (3.5-5.0) g/dL Globulin (2.2-3.9) gm/dL Albumin/Globulin Ratio (1.0-2.1) Arterial Blood Potassium (3.6-5.2) mmol/L Hepatitis A IgM Ab (NEGATIVE) Hep Bs Antigen (NEGATIVE) Hep B Core IgM Ab (NEGATIVE) Hepatitis C Antibody (NEGATIVE) 02/28/18 02/28/18 Range/Units 23:39 19:08 WBC (4.8-10.8) K/uL RBC (4.40-5.90) Mil/uL Hgb (12.0-18.0) g/dL Hct (35.0-51.0) % MCV (80.0-94.0) fL MCH (27.0-31.0) pg MCHC (33.0-37.0) g/dL RDW (11.5-14.5) % Plt Count (130-400) K/uL MPV (7.2-11.7) fL Neut % (Auto) (50.0-75.0) % Lymph % (Auto) (20.0-40.0) % Schleicher % (Auto) (0.0-10.0) % Eos % (Auto) (0.0-4.0) % Baso % (Auto) (0.0-2.0) % Neut # (Auto) (1.8-7.0) K/uL Lymph # (Auto) (1.0-4.3) K/uL Schleicher # (Auto) (0.0-0.8) K/uL Eos # (Auto) (0.0-0.7) K/uL Baso # (Auto) (0.0-0.2) K/uL Neutrophils % (Manual) (50-75) % Band Neutrophils % (0-2) % Lymphocytes % (Manual) (20-40) % Monocytes % (Manual) (0-10) % Platelet Estimate (NORMAL) Polychromasia Hypochromasia (manual) Anisocytosis (manual) Target Cells ESR (0-15) mm/hr Puncture Site Rba pCO2 40 (35-45) mm/Hg pO2 94 (80-100) mm/Hg HCO3 21.9 (21-28) mmol/L ABG pH 7.34 L (7.35-7.45) ABG Total CO2 22.8 (22-28) mmol/L ABG O2 Saturation 98.5 H (95-98) % ABG Base Excess -3.9 L (-2.0-3.0) mmol/L ABG Hemoglobin (11.7-17.4) g/dL ABG Carboxyhemoglobin (0.5-1.5) % POC ABG HHb (Measured) (0.0-5.0) % ABG Methemoglobin (0.0-3.0) % Satinder Test Na ABG Potassium 5.5 H (3.6-5.2) mmol/L A-a O2 Difference 284.0 mm/Hg Respiratory Index 3.0 Hgb O2 Saturation (95.0-98.0) % Sodium 140.0 (132-148) mmol/l Chloride 109.0 H (98-107) mmol/L Glucose 92 (75-110) mg/dl Lactate 3.9 H (0.7-2.1) mmol/L Vent Mode Prvc Mechanical Rate 20 FiO2 60.0 % Tidal Volume 500 PEEP 5 Potassium (3.6-5.2) mmol/L Carbon Dioxide (22-30) mmol/L Anion Gap (10-20) BUN (9-20) mg/dL Creatinine (0.8-1.5) mg/dL Est GFR ( Amer) Est GFR (Non-Af Amer) POC Glucose (mg/dL) 84 (65-110) mg/dL Random Glucose (75-110) mg/dL Lactic Acid (0.7-2.1) mmol/L Calcium (8.6-10.4) mg/dl Phosphorus (2.5-4.5) mg/dL Magnesium (1.6-2.3) mg/dL Total Bilirubin (0.2-1.3) mg/dL Direct Bilirubin (0.0-0.4) mg/dL AST (17-59) U/L ALT (21-72) U/L Alkaline Phosphatase (38-126) U/L C-React Prot High Sens (1.00-3.00) mg/L Total Protein (6.3-8.3) g/dL Albumin (3.5-5.0) g/dL Globulin (2.2-3.9) gm/dL Albumin/Globulin Ratio (1.0-2.1) Arterial Blood Potassium 5.5 H (3.6-5.2) mmol/L Hepatitis A IgM Ab (NEGATIVE) Hep Bs Antigen (NEGATIVE) Hep B Core IgM Ab (NEGATIVE) Hepatitis C Antibody (NEGATIVE) Laboratory Results - last 24 hr 02/28/18 02/28/18 03/01/18 19:08 23:39 00:38 WBC RBC Hgb Hct MCV MCH MCHC RDW Plt Count MPV Neut % (Auto) Lymph % (Auto) Schleicher % (Auto) Eos % (Auto) Baso % (Auto) Neut # (Auto) Lymph # (Auto) Schleicher # (Auto) Eos # (Auto) Baso # (Auto) Neutrophils % (Manual) Band Neutrophils % Lymphocytes % (Manual) Monocytes % (Manual) Platelet Estimate Polychromasia Hypochromasia (manual) Anisocytosis (manual) Target Cells ESR Puncture Site Rba pCO2 40 pO2 94 HCO3 21.9 ABG pH 7.34 L ABG Total CO2 22.8 ABG O2 Saturation 98.5 H ABG Base Excess -3.9 L ABG Hemoglobin ABG Carboxyhemoglobin POC ABG HHb (Measured) ABG Methemoglobin Satinder Test Na ABG Potassium 5.5 H A-a O2 Difference 284.0 Respiratory Index 3.0 Hgb O2 Saturation Sodium 140.0 Chloride 109.0 H Glucose 92 Lactate 3.9 H Vent Mode Prvc Mechanical Rate 20 FiO2 60.0 Tidal Volume 500 PEEP 5 Potassium Carbon Dioxide Anion Gap BUN Creatinine Est GFR ( Amer) Est GFR (Non-Af Amer) POC Glucose (mg/dL) 84 Random Glucose Lactic Acid 2.6 H Calcium Phosphorus Magnesium Total Bilirubin Direct Bilirubin AST ALT Alkaline Phosphatase C-React Prot High Sens Total Protein Albumin Globulin Albumin/Globulin Ratio Arterial Blood Potassium 5.5 H Hepatitis A IgM Ab Hep Bs Antigen Hep B Core IgM Ab Hepatitis C Antibody 03/01/18 03/01/18 03/01/18 05:12 05:20 05:23 WBC RBC Hgb Hct MCV MCH MCHC RDW Plt Count MPV Neut % (Auto) Lymph % (Auto) Schleicher % (Auto) Eos % (Auto) Baso % (Auto) Neut # (Auto) Lymph # (Auto) Schleicher # (Auto) Eos # (Auto) Baso # (Auto) Neutrophils % (Manual) Band Neutrophils % Lymphocytes % (Manual) Monocytes % (Manual) Platelet Estimate Polychromasia Hypochromasia (manual) Anisocytosis (manual) Target Cells ESR Puncture Site Rb pCO2 31 L pO2 74 L HCO3 23.9 ABG pH 7.46 H ABG Total CO2 23.0 ABG O2 Saturation 97.6 ABG Base Excess -1.3 ABG Hemoglobin 9.2 L ABG Carboxyhemoglobin 2.1 H POC ABG HHb (Measured) 2.3 ABG Methemoglobin 0.5 Satinder Test Na ABG Potassium A-a O2 Difference 315.0 Respiratory Index 4.3 Hgb O2 Saturation 95.1 Sodium Chloride Glucose Lactate Vent Mode Prvc Mechanical Rate 20 FiO2 60.0 Tidal Volume 500 PEEP 5 Potassium Carbon Dioxide Anion Gap BUN Creatinine Est GFR ( Amer) Est GFR (Non-Af Amer) POC Glucose (mg/dL) 60 L 75 Random Glucose Lactic Acid Calcium Phosphorus Magnesium Total Bilirubin Direct Bilirubin AST ALT Alkaline Phosphatase C-React Prot High Sens Total Protein Albumin Globulin Albumin/Globulin Ratio Arterial Blood Potassium Hepatitis A IgM Ab Hep Bs Antigen Hep B Core IgM Ab Hepatitis C Antibody 03/01/18 03/01/18 03/01/18 05:55 05:55 05:55 WBC 10.5 RBC 3.56 L Hgb 9.6 L Hct 29.7 L MCV 83.5 D MCH 27.1 MCHC 32.4 L RDW 20.9 H Plt Count 126 L D MPV 8.5 Neut % (Auto) 87.2 H Lymph % (Auto) 4.6 L Schleicher % (Auto) 7.5 Eos % (Auto) 0.1 Baso % (Auto) 0.6 Neut # (Auto) 9.1 H Lymph # (Auto) 0.5 L Schleicher # (Auto) 0.8 Eos # (Auto) 0.0 Baso # (Auto) 0.1 Neutrophils % (Manual) 62 Band Neutrophils % 30 H* Lymphocytes % (Manual) 3 L Monocytes % (Manual) 5 Platelet Estimate Normal Polychromasia Slight Hypochromasia (manual) Slight Anisocytosis (manual) Slight Target Cells Slight ESR 67 H Puncture Site pCO2 pO2 HCO3 ABG pH ABG Total CO2 ABG O2 Saturation ABG Base Excess ABG Hemoglobin ABG Carboxyhemoglobin POC ABG HHb (Measured) ABG Methemoglobin Satinder Test ABG Potassium A-a O2 Difference Respiratory Index Hgb O2 Saturation Sodium 139 Chloride 105 Glucose Lactate Vent Mode Mechanical Rate FiO2 Tidal Volume PEEP Potassium 4.1 Carbon Dioxide 26 Anion Gap 12 BUN 37 H Creatinine 1.5 Est GFR ( Amer) 57 Est GFR (Non-Af Amer) 47 POC Glucose (mg/dL) Random Glucose 71 L D Lactic Acid Calcium 7.0 L Phosphorus 3.5 Magnesium 1.6 Total Bilirubin 2.6 H Direct Bilirubin 2.2 H AST 2498 H ALT 362 H D Alkaline Phosphatase 1027 H C-React Prot High Sens Total Protein 6.4 Albumin 2.0 L Globulin 4.4 H Albumin/Globulin Ratio 0.5 L Arterial Blood Potassium Hepatitis A IgM Ab Negative Hep Bs Antigen Negative Hep B Core IgM Ab Negative Hepatitis C Antibody Negative Negative 03/01/18 03/01/18 05:55 11:06 WBC RBC Hgb Hct MCV MCH MCHC RDW Plt Count MPV Neut % (Auto) Lymph % (Auto) Schleicher % (Auto) Eos % (Auto) Baso % (Auto) Neut # (Auto) Lymph # (Auto) Schleicher # (Auto) Eos # (Auto) Baso # (Auto) Neutrophils % (Manual) Band Neutrophils % Lymphocytes % (Manual) Monocytes % (Manual) Platelet Estimate Polychromasia Hypochromasia (manual) Anisocytosis (manual) Target Cells ESR Puncture Site pCO2 pO2 HCO3 ABG pH ABG Total CO2 ABG O2 Saturation ABG Base Excess ABG Hemoglobin ABG Carboxyhemoglobin POC ABG HHb (Measured) ABG Methemoglobin Satinder Test ABG Potassium A-a O2 Difference Respiratory Index Hgb O2 Saturation Sodium Chloride Glucose Lactate Vent Mode Mechanical Rate FiO2 Tidal Volume PEEP Potassium Carbon Dioxide Anion Gap BUN Creatinine Est GFR ( Amer) Est GFR (Non-Af Amer) POC Glucose (mg/dL) 77 Random Glucose Lactic Acid Calcium Phosphorus Magnesium Total Bilirubin Direct Bilirubin AST ALT Alkaline Phosphatase C-React Prot High Sens > 15.00 H Total Protein Albumin Globulin Albumin/Globulin Ratio Arterial Blood Potassium Hepatitis A IgM Ab Hep Bs Antigen Hep B Core IgM Ab Hepatitis C Antibody Radiology Impressions: Radiology Impressions Chest/Abdomen CT 02/28/18 16:33 Impression: Evidence of osseous metastatic disease involving the sternum, thoracic and included portions of the lumbar spine. Evidence of pathologic fractures involving the sternum, L1 vertebral body, and L2 vertebral body. Innumerable pulmonary and hepatic masses as well as 2.9 x 3.2 cm left adrenal gland mass consistent with metastases. Splenomegaly. Small abdominal and pelvic ascites. Left lower quadrant ostomy. Endotracheal tube. Right-sided MediPort. IVC filter. Additional findings as above. Discussed with the patient's RN Jes on 03/01/18 at 1:15 p.m. Chest X-Ray 03/01/18 07:00 IMPRESSION: No significant interval change in widespread pulmonary metastasis particularly at the mid and inferior medial bilateral distributions. Underlying infiltrates are not completely excluded or atelectasis. ET tube/MediPort stable in position. Abdomen/Bladder Ultrasound 03/01/18 16:16 Impression: Limited study. Innumerable hepatic masses consistent with metastatic disease. Abdominal ascites. Splenomegaly. Thickened gallbladder wall measures approximately 8 mm. Contracted gallbladder limits evaluation. No evidence of gallstones or gallbladder sludge. Sonographic Crawford's sign cannot be assessed due to patient condition. Right-sided pleural effusion. Fox catheter within a decompressed urinary bladder. Attending/Attestation - Attestation I have personally seen and examined this patient.: Yes I have fully participated in the care of the patient.: Yes I have reviewed all pertinent clinical information: Yes Notes (Text): 03/01/18 19:09 patient seen and examined Family requested terminal extubation patient pronounced at 5:17 PM
[2018-03-01 09:55] LABS: ERYTHROCYTE SEDIMENTATION RATE 67 mm/hr (0-15)
[2018-03-01] MEDS: Oseltamivir 6 MG/ML PO SCH (10:00)
--- NOTE | 2018-03-01 10:17 | RAD ---
Date of service: 03/01/2018 HISTORY: on vent COMPARISON: Portable chest 02/28/2018. FINDINGS: LUNGS: In the interval, an nasogastric has been placed with the tip turning at the left upper quadrant abdomen likely in gastric viscus. Endotracheal tube and right MediPort are unchanged in position. Expansive pulmonary metastases are reiterated, particularly at the medial mid inferior lung zones bilaterally with underlying infiltrates difficult to completely exclude in the same distribution. No significant interval change. PLEURA: No significant pleural effusion identified, no pneumothorax apparent. CARDIOVASCULAR: No aortic atherosclerotic calcification present. Normal cardiac size. No pulmonary vascular congestion. OSSEOUS STRUCTURES: No significant abnormalities. VISUALIZED UPPER ABDOMEN: Normal. OTHER FINDINGS: None. IMPRESSION: No significant interval change in widespread pulmonary metastasis particularly at the mid and inferior medial bilateral distributions. Underlying infiltrates are not completely excluded or atelectasis. ET tube/MediPort stable in position.
--- NOTE | 2018-03-01 11:15 | US ---
Date of service: 03/01/2018 Indication: high t. margaret ellie Comparison: Renal ultrasound performed 03/21/17 Findings: The liver measures approximately 18.3 cm. Echogenic liver may be seen in setting of hepatic parenchymal disease or fatty infiltration. Innumerable hepatic masses consistent with metastatic disease. The main portal vein appears patent with normal directional flow. There is no evidence of intrahepatic ductal dilatation. Abdominal ascites. The common bile duct appears within normal limits of caliber, measuring 3 mm. Gallbladder wall appears thickened measuring approximately 8 mm. Contracted gallbladder limits evaluation. No evidence of gallstones or gallbladder sludge. Sonographic Crawford's sign cannot be assessed due to patient condition. The pancreas was not visualized. The right kidney measures 12.3 x 3.9 x 4.6 cm and is without evidence of stones or hydronephrosis. The left kidney measures 12.2 x 5.8 x 5.4 cm and is without evidence of stones or hydronephrosis. The spleen measures approximately 14.6 cm. Limited visualization of the abdominal aorta and IVC appear grossly unremarkable. Incidental note is made of right-sided pleural effusion. Fox catheter within a decompressed urinary bladder. Impression: Limited study. Innumerable hepatic masses consistent with metastatic disease. Abdominal ascites. Splenomegaly. Thickened gallbladder wall measures approximately 8 mm. Contracted gallbladder limits evaluation. No evidence of gallstones or gallbladder sludge. Sonographic Crawford's sign cannot be assessed due to patient condition. Right-sided pleural effusion. Fox catheter within a decompressed urinary bladder.
--- NOTE | 2018-03-01 13:33 | CT ---
Date of service:02/28/2018 CT chest and abdomen without IV contrast Indication: Transaminitis Technique: Contiguous axial images of the chest and abdomen without oral or IV contrast. Coronal and Sagittal reformats generated and reviewed. This CT exam was performed using 1 or more of the following dose reduction techniques: Automated exposure control, adjustment of the MAA and/or kV according to patient size, and/or use of iterative reconstruction technique. Radiation dose: Total exam DLP = 710.28 MGy-cm. Comparison: Chest x-ray performed 03/01/18, CT of the chest, abdomen and pelvis with IV contrast performed 11/24/17, and limited abdominal/renal ultrasound performed 03/01/18 Findings: Endotracheal tube terminates above the jhoan. Right-sided MediPort extends to the cavoatrial junction. Heart size appears within normal limits. Coronary artery calcifications. Innumerable pulmonary nodules and masses consistent with metastatic disease. Small to moderate left-sided pleural effusion and associated consolidation. Small right pleural effusion. Innumerable hepatic masses consistent with metastatic disease. 5 mm left hepatic lobe hyperdense focus. Fatty atrophy of the pancreas. Pericholecystic edema/wall thickening of the gallbladder. Splenomegaly. 2.9 x 3.2 cm left adrenal gland mass. The noncontrast right adrenal gland and bilateral kidneys appear grossly unremarkable. Small abdominal and pelvic ascites. The stomach is nondistended. Lack of oral contrast limits evaluation for bowel pathology. Included upper abdominal bowel loops appear within normal limits of caliber. Left lower quadrant ostomy. There is no definite free air. IVC filter. Degenerative changes. Abnormal osseous appearance including the sternum, thoracic and included portions of the lumbar spine worrisome for osseous metastatic disease. Evidence of pathologic fractures involving the sternum, L1 vertebral body, and L2 vertebral body. Impression: Evidence of osseous metastatic disease involving the sternum, thoracic and included portions of the lumbar spine. Evidence of pathologic fractures involving the sternum, L1 vertebral body, and L2 vertebral body. Innumerable pulmonary and hepatic masses as well as 2.9 x 3.2 cm left adrenal gland mass consistent with metastases. Splenomegaly. Small abdominal and pelvic ascites. Left lower quadrant ostomy. Endotracheal tube. Right-sided MediPort. IVC filter. Additional findings as above. Discussed with the patient's RN Jes on 03/01/18 at 1:15 p.m.
--- NOTE | 2018-03-01 13:48 | CP.PCM.CON ---
History of Present Illness - History of Present Illness History of Present Illness: Palliative consult requested by Doctor Law for goals of care discussion Patient is a 63 yo male admitted from home found unresponsive in am. Per his , patient was at his normal state the evening before, took his meds and went to sleep. Per , patient had productive cough for few days. Upon EMS arrival, patient found hypoglycemic. After Dextrose administration patient experienced agonal breathing and was intubated on the field and transferred to ED. In Ed, patient found with Band neutrophils, and lactic acidosis.Started on IV fluids and Flagyl and Maxipine IV. Patient presented with POLST form indicating DNR/DNI. Per , she " decided to give him another chance" and wanted him intubated. Now, changed her mind and understands she should have respected patient's wishes, and is asking about life support removal. Palliative care was asked to assist with the process. 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 Hx: denied Review of Systems - Review of Systems All systems: reviewed and no additional remarkable complaints except Review of Systems: ROS unobtainable from patient due to intubation. ROS obtained from nursing. Per nursing, patient had been hypotensive. Past Patient History - Tetanus Immunizations Tetanus Immunization: Unknown - Past Medical History & Family History Past Medical History?: Yes - Past Social History Smoking Status: Never Smoked - CARDIAC Hx Cardiac Disorders: No - PULMONARY Hx Respiratory Disorders: No Other/Comment: lung mets ca - NEUROLOGICAL Hx Neurological Disorder: Yes Hx Alzheimer's Disease: Yes Hx Dementia: Yes - HEENT Hx HEENT Problems: Yes Hx Glaucoma: Yes - RENAL Hx Chronic Kidney Disease: No - ENDOCRINE/METABOLIC Hx Endocrine Disorders: No - HEMATOLOGICAL/ONCOLOGICAL Hx Blood Disorders: No - INTEGUMENTARY Hx Dermatological Problems: No - MUSCULOSKELETAL/RHEUMATOLOGICAL Hx Falls: Yes - GASTROINTESTINAL Hx Gastrointestinal Disorders: Yes Hx Constipation: Yes Other/Comment: Colon CA; colostomy - GENITOURINARY/GYNECOLOGICAL Hx Genitourinary Disorders: No - PSYCHIATRIC Hx Substance Use: Yes (+ benzo, + opiates) - SURGICAL HISTORY Hx Surgeries: Yes (SEE COMMENT) Hx Orthopedic Surgery: Yes (tarah. hip sx and right wrist sx) Other/Comment: left knee degloving, exploratory lap s/p work accident. Colon resection. - ANESTHESIA Hx Anesthesia: Yes Hx Anesthesia Reactions: No Hx Malignant Hyperthermia: No Has any member of the family had a problem w/ anesthesia?: No Meds Allergies/Adverse Reactions: Allergies Allergy/AdvReac Type Severity Reaction Status Date / Time Penicillins Allergy RASH Verified 02/28/18 15:15 - Medications Medications: Current Medications Albuterol/Ipratropium (Duoneb 3 Mg/0.5 Mg (3 Ml) Ud) 3 ml INH RQ6 MARC Last Admin: 03/01/18 03:57 Dose: Not Given Heparin Sodium (Porcine) (Heparin) 5,000 units SC Q12 MARC Last Admin: 03/01/18 10:04 Dose: 5,000 units Metronidazole (Flagyl) 500 mg in 100 mls @ 100 mls/hr IVPB Q8H [facility]; Protocol Last Admin: 03/01/18 10:00 Dose: 100 mls/hr Sodium Chloride (Sodium Chloride 0.9%) 1,000 mls @ 75 mls/hr IV .[id number] [facility] Last Admin: 03/01/18 13:13 Dose: 75 mls/hr Propofol (Diprivan) 1,000 mg in 100 mls @ 2.245 mls/hr IV .Q24H PRN; Protocol PRN Reason: TITRATE PER MD ORDER Last Titration: 03/01/18 02:30 Dose: 10 mcg/kg/min, 4.491 mls/hr Cefepime HCl (Maxipime Iv 1 Gm Premix) 1 gm in 50 mls @ 100 mls/hr IVPB Q24H [facility]; Protocol Last Admin: 02/28/18 22:41 Dose: 100 mls/hr Oseltamivir Phosphate (Tamiflu Susp) 30 mg PO BID [facility]; Protocol Stop: 03/02/18 18:01 Last Admin: 02/28/18 19:36 Dose: 5 ml Pantoprazole Sodium (Protonix Inj) 40 mg IVP Q12H [facility] Last Admin: 03/01/18 05:12 Dose: 40 mg Physical Exam - Constitutional Appears: In Acute Distress, Chronically Ill - Head Exam Head Exam: ATRAUMATIC, NORMAL INSPECTION, NORMOCEPHALIC - Eye Exam Eye Exam: EOMI, Normal appearance Pupil Exam: NORMAL ACCOMODATION - ENT Exam ENT Exam: Mucous Membranes Dry Additional comments: ETT - Neck Exam Neck exam: Positive for: Normal Inspection - Respiratory Exam Additional comments: On MV support, FiO2 60 % - Cardiovascular Exam Cardiovascular Exam: Tachycardia - GI/Abdominal Exam GI & Abdominal Exam: Hypoactive Bowel Sounds - Rectal Exam Rectal Exam: Deferred - Exam Additional comments: Fox - Extremities Exam Extremities exam: Positive for: normal inspection - Back Exam Back exam: NORMAL INSPECTION - Neurological Exam Neurological exam: Motor Sensory Deficit - Psychiatric Exam Psychiatric exam: Flat Affect - Skin Skin Exam: Dry, Intact, Pallor Results - Vital Signs Recent Vital Signs: Last Vital Signs Temp 98.7 F 03/01/18 12:00 Pulse 117 H 03/01/18 13:07 Resp 20 03/01/18 13:07 BP 75/44 L 03/01/18 13:00 Pulse Ox 100 03/01/18 13:07 - Labs Result Diagrams: 03/01/18 05:55 03/01/18 05:55 Labs: Laboratory Results - last 24 hr 02/28/18 02/28/18 02/28/18 15:12 15:30 15:37 WBC 11.3 H RBC 3.62 L Hgb 9.6 L Hct 31.5 L MCV 87.0 D MCH 26.4 L MCHC 30.3 L RDW 21.1 H Plt Count 155 MPV 8.1 Neut % (Auto) 84.7 H Lymph % (Auto) 5.1 L [place] % (Auto) 9.1 Eos % (Auto) 0.0 Baso % (Auto) 1.1 Neut # (Auto) 9.6 H Lymph # (Auto) 0.6 L [place] # (Auto) 1.0 H Eos # (Auto) 0.0 Baso # (Auto) 0.1 Neutrophils % (Manual) 91 H Band Neutrophils % 1 Lymphocytes % (Manual) 2 L Monocytes % (Manual) 6 Platelet Estimate Normal Polychromasia Slight Hypochromasia (manual) Slight Anisocytosis (manual) Moderate Target Cells ESR PT INR APTT Puncture Site pCO2 pO2 38 HCO3 ABG pH ABG Total CO2 ABG O2 Saturation ABG Base Excess ABG Hemoglobin ABG Carboxyhemoglobin POC ABG HHb (Measured) ABG Methemoglobin Satinder Test ABG Potassium VBG pH 7.18 L* VBG pCO2 65 H VBG HCO3 19.8 VBG Total CO2 26.3 VBG O2 Sat (Calc) 76.3 H VBG Base Excess -5.2 L VBG Potassium 5.7 H A-a O2 Difference Respiratory Index Hgb O2 Saturation Sodium 138.0 Chloride 101.0 Glucose 125 H Lactate 7.0 H* Vent Mode Mechanical Rate FiO2 Tidal Volume PEEP Crit Value Called To Dr garcia Crit Value Called By [email or web address] Crit Value Read Back Y Blood Gas Notified Time 1541 Potassium Carbon Dioxide Anion Gap BUN Creatinine Est GFR ( Amer) Est GFR (Non-Af Amer) POC Glucose (mg/dL) 159 H Random Glucose Lactic Acid Calcium Phosphorus Magnesium Total Bilirubin Direct Bilirubin AST ALT Alkaline Phosphatase Ammonia Total Creatine Kinase CK-MB (Mass) Troponin I C-React Prot High Sens NT-Pro-B Natriuret Pep Total Protein Albumin Globulin Albumin/Globulin Ratio Lipase Arterial Blood Potassium Venous Blood Potassium 5.7 H Urine Color Urine Clarity Urine pH Ur Specific Agency Urine Protein Urine Glucose (UA) Urine Ketones Urine Blood Urine Nitrate Urine Bilirubin Urine Urobilinogen Ur Leukocyte Esterase Urine WBC (Auto) Urine RBC (Auto) Urine Bacteria Hyaline Casts Urine Opiates Screen Urine Methadone Screen Ur Barbiturates Screen Ur Phencyclidine Scrn Ur Amphetamines Screen U Benzodiazepines Scrn U Oth Cocaine Metabols U Cannabinoids Screen Hepatitis A IgM Ab Hep Bs Antigen Hep B Core IgM Ab Hepatitis C Antibody Influenza Typ A,B (EIA) Blood Type Antibody Screen 02/28/18 02/28/18 02/28/18 15:37 15:37 15:37 WBC RBC Hgb Hct MCV MCH MCHC RDW Plt Count MPV Neut % (Auto) Lymph % (Auto) [place] % (Auto) Eos % (Auto) Baso % (Auto) Neut # (Auto) Lymph # (Auto) [place] # (Auto) Eos # (Auto) Baso # (Auto) Neutrophils % (Manual) Band Neutrophils % Lymphocytes % (Manual) Monocytes % (Manual) Platelet Estimate Polychromasia Hypochromasia (manual) Anisocytosis (manual) Target Cells ESR PT 19.3 H INR 1.8 APTT 39 H Puncture Site pCO2 pO2 HCO3 ABG pH ABG Total CO2 ABG O2 Saturation ABG Base Excess ABG Hemoglobin ABG Carboxyhemoglobin POC ABG HHb (Measured) ABG Methemoglobin Satinder Test ABG Potassium VBG pH VBG pCO2 VBG HCO3 VBG Total CO2 VBG O2 Sat (Calc) VBG Base Excess VBG Potassium A-a O2 Difference Respiratory Index Hgb O2 Saturation Sodium 139 Chloride 103 Glucose Lactate Vent Mode Mechanical Rate FiO2 Tidal Volume PEEP Crit Value Called To Crit Value Called By Crit Value Read Back Blood Gas Notified Time Potassium 6.0 H Carbon Dioxide 26 Anion Gap 17 BUN 30 H Creatinine 2.0 H Est GFR ( Amer) 41 Est GFR (Non-Af Amer) 34 POC Glucose (mg/dL) Random Glucose 139 H D Lactic Acid Calcium 7.5 L Phosphorus Magnesium Total Bilirubin 2.2 H Direct Bilirubin AST 757 H D ALT 100 H D Alkaline Phosphatase 748 H D Ammonia Total Creatine Kinase 185 H CK-MB (Mass) 1.22 Troponin I 0.0210 C-React Prot High Sens NT-Pro-B Natriuret Pep 5360 H Total Protein 7.1 Albumin 2.5 L D Globulin 4.6 H Albumin/Globulin Ratio 0.6 L Lipase 31 Arterial Blood Potassium Venous Blood Potassium Urine Color Urine Clarity Urine pH Ur Specific Agency Urine Protein Urine Glucose (UA) Urine Ketones Urine Blood Urine Nitrate Urine Bilirubin Urine Urobilinogen Ur Leukocyte Esterase Urine WBC (Auto) Urine RBC (Auto) Urine Bacteria Hyaline Casts Urine Opiates Screen Urine Methadone Screen Ur Barbiturates Screen Ur Phencyclidine Scrn Ur Amphetamines Screen U Benzodiazepines Scrn U Oth Cocaine Metabols U Cannabinoids Screen Hepatitis A IgM Ab Hep Bs Antigen Hep B Core IgM Ab Hepatitis C Antibody Influenza Typ A,B (EIA) Blood Type O POSITIVE Antibody Screen Negative 02/28/18 02/28/18 02/28/18 16:17 16:17 17:18 WBC RBC Hgb Hct MCV MCH MCHC RDW Plt Count MPV Neut % (Auto) Lymph % (Auto) [place] % (Auto) Eos % (Auto) Baso % (Auto) Neut # (Auto) Lymph # (Auto) [place] # (Auto) Eos # (Auto) Baso # (Auto) Neutrophils % (Manual) Band Neutrophils % Lymphocytes % (Manual) Monocytes % (Manual) Platelet Estimate Polychromasia Hypochromasia (manual) Anisocytosis (manual) Target Cells ESR PT INR APTT Puncture Site pCO2 pO2 HCO3 ABG pH ABG Total CO2 ABG O2 Saturation ABG Base Excess ABG Hemoglobin ABG Carboxyhemoglobin POC ABG HHb (Measured) ABG Methemoglobin Satinder Test ABG Potassium VBG pH VBG pCO2 VBG HCO3 VBG Total CO2 VBG O2 Sat (Calc) VBG Base Excess VBG Potassium A-a O2 Difference Respiratory Index Hgb O2 Saturation Sodium Chloride Glucose Lactate Vent Mode Mechanical Rate FiO2 Tidal Volume PEEP Crit Value Called To Crit Value Called By Crit Value Read Back Blood Gas Notified Time Potassium Carbon Dioxide Anion Gap BUN Creatinine Est GFR ( Amer) Est GFR (Non-Af Amer) POC Glucose (mg/dL) Random Glucose Lactic Acid Calcium Phosphorus Magnesium Total Bilirubin Direct Bilirubin AST ALT Alkaline Phosphatase Ammonia Total Creatine Kinase CK-MB (Mass) Troponin I C-React Prot High Sens NT-Pro-B Natriuret Pep Total Protein Albumin Globulin Albumin/Globulin Ratio Lipase Arterial Blood Potassium Venous Blood Potassium Urine Color [place] Urine Clarity Hazy Urine pH 5.0 Ur Specific Agency 1.023 Urine Protein 1+ H Urine Glucose (UA) Normal Urine Ketones Negative Urine Blood Negative Urine Nitrate Negative Urine Bilirubin 1+ H Urine Urobilinogen 4.0 Ur Leukocyte Esterase Neg Urine WBC (Auto) 1 Urine RBC (Auto) 1 Urine Bacteria Rare Hyaline Casts 3-5 H Urine Opiates Screen Positive H Urine Methadone Screen Negative Ur Barbiturates Screen Negative Ur Phencyclidine Scrn Negative Ur Amphetamines Screen Negative U Benzodiazepines Scrn Positive U Oth Cocaine Metabols Negative U Cannabinoids Screen Negative Hepatitis A IgM Ab Hep Bs Antigen Hep B Core IgM Ab Hepatitis C Antibody Influenza Typ A,B (EIA) Blood Type Antibody Screen 02/28/18 02/28/18 02/28/18 17:52 19:08 23:39 WBC RBC Hgb Hct MCV MCH MCHC RDW Plt Count MPV Neut % (Auto) Lymph % (Auto) [place] % (Auto) Eos % (Auto) Baso % (Auto) Neut # (Auto) Lymph # (Auto) [place] # (Auto) Eos # (Auto) Baso # (Auto) Neutrophils % (Manual) Band Neutrophils % Lymphocytes % (Manual) Monocytes % (Manual) Platelet Estimate Polychromasia Hypochromasia (manual) Anisocytosis (manual) Target Cells ESR PT INR APTT Puncture Site Rba pCO2 40 pO2 94 HCO3 21.9 ABG pH 7.34 L ABG Total CO2 22.8 ABG O2 Saturation 98.5 H ABG Base Excess -3.9 L ABG Hemoglobin ABG Carboxyhemoglobin POC ABG HHb (Measured) ABG Methemoglobin Satinder Test Na ABG Potassium 5.5 H VBG pH VBG pCO2 VBG HCO3 VBG Total CO2 VBG O2 Sat (Calc) VBG Base Excess VBG Potassium A-a O2 Difference 284.0 Respiratory Index 3.0 Hgb O2 Saturation Sodium 140.0 Chloride 109.0 H Glucose 92 Lactate 3.9 H Vent Mode Prvc Mechanical Rate 20 FiO2 60.0 Tidal Volume 500 PEEP 5 Crit Value Called To Crit Value Called By Crit Value Read Back Blood Gas Notified Time Potassium Carbon Dioxide Anion Gap BUN Creatinine Est GFR ( Amer) Est GFR (Non-Af Amer) POC Glucose (mg/dL) 84 Random Glucose Lactic Acid Calcium Phosphorus Magnesium Total Bilirubin Direct Bilirubin AST ALT Alkaline Phosphatase Ammonia 93 H Total Creatine Kinase CK-MB (Mass) Troponin I C-React Prot High Sens NT-Pro-B Natriuret Pep Total Protein Albumin Globulin Albumin/Globulin Ratio Lipase Arterial Blood Potassium 5.5 H Venous Blood Potassium Urine Color Urine Clarity Urine pH Ur Specific Agency Urine Protein Urine Glucose (UA) Urine Ketones Urine Blood Urine Nitrate Urine Bilirubin Urine Urobilinogen Ur Leukocyte Esterase Urine WBC (Auto) Urine RBC (Auto) Urine Bacteria Hyaline Casts Urine Opiates Screen Urine Methadone Screen Ur Barbiturates Screen Ur Phencyclidine Scrn Ur Amphetamines Screen U Benzodiazepines Scrn U Oth Cocaine Metabols U Cannabinoids Screen Hepatitis A IgM Ab Hep Bs Antigen Hep B Core IgM Ab Hepatitis C Antibody Influenza Typ A,B (EIA) Blood Type Antibody Screen 03/01/18 03/01/18 03/01/18 00:38 05:12 05:20 WBC RBC Hgb Hct MCV MCH MCHC RDW Plt Count MPV Neut % (Auto) Lymph % (Auto) [place] % (Auto) Eos % (Auto) Baso % (Auto) Neut # (Auto) Lymph # (Auto) [place] # (Auto) Eos # (Auto) Baso # (Auto) Neutrophils % (Manual) Band Neutrophils % Lymphocytes % (Manual) Monocytes % (Manual) Platelet Estimate Polychromasia Hypochromasia (manual) Anisocytosis (manual) Target Cells ESR PT INR APTT Puncture Site Rb pCO2 31 L pO2 74 L HCO3 23.9 ABG pH 7.46 H ABG Total CO2 23.0 ABG O2 Saturation 97.6 ABG Base Excess -1.3 ABG Hemoglobin 9.2 L ABG Carboxyhemoglobin 2.1 H POC ABG HHb (Measured) 2.3 ABG Methemoglobin 0.5 Satinder Test Na ABG Potassium VBG pH VBG pCO2 VBG HCO3 VBG Total CO2 VBG O2 Sat (Calc) VBG Base Excess VBG Potassium A-a O2 Difference 315.0 Respiratory Index 4.3 Hgb O2 Saturation 95.1 Sodium Chloride Glucose Lactate Vent Mode Prvc Mechanical Rate 20 FiO2 60.0 Tidal Volume 500 PEEP 5 Crit Value Called To Crit Value Called By Crit Value Read Back Blood Gas Notified Time Potassium Carbon Dioxide Anion Gap BUN Creatinine Est GFR ( Amer) Est GFR (Non-Af Amer) POC Glucose (mg/dL) 60 L Random Glucose Lactic Acid 2.6 H Calcium Phosphorus Magnesium Total Bilirubin Direct Bilirubin AST ALT Alkaline Phosphatase Ammonia Total Creatine Kinase CK-MB (Mass) Troponin I C-React Prot High Sens NT-Pro-B Natriuret Pep Total Protein Albumin Globulin Albumin/Globulin Ratio Lipase Arterial Blood Potassium Venous Blood Potassium Urine Color Urine Clarity Urine pH Ur Specific Agency Urine Protein Urine Glucose (UA) Urine Ketones Urine Blood Urine Nitrate Urine Bilirubin Urine Urobilinogen Ur Leukocyte Esterase Urine WBC (Auto) Urine RBC (Auto) Urine Bacteria Hyaline Casts Urine Opiates Screen Urine Methadone Screen Ur Barbiturates Screen Ur Phencyclidine Scrn Ur Amphetamines Screen U Benzodiazepines Scrn U Oth Cocaine Metabols U Cannabinoids Screen Hepatitis A IgM Ab Hep Bs Antigen Hep B Core IgM Ab Hepatitis C Antibody Influenza Typ A,B (EIA) Blood Type Antibody Screen 03/01/18 03/01/18 03/01/18 05:23 05:55 05:55 WBC 10.5 RBC 3.56 L Hgb 9.6 L Hct 29.7 L MCV 83.5 D MCH 27.1 MCHC 32.4 L RDW 20.9 H Plt Count 126 L D MPV 8.5 Neut % (Auto) 87.2 H Lymph % (Auto) 4.6 L [place] % (Auto) 7.5 Eos % (Auto) 0.1 Baso % (Auto) 0.6 Neut # (Auto) 9.1 H Lymph # (Auto) 0.5 L [place] # (Auto) 0.8 Eos # (Auto) 0.0 Baso # (Auto) 0.1 Neutrophils % (Manual) 62 Band Neutrophils % 30 H* Lymphocytes % (Manual) 3 L Monocytes % (Manual) 5 Platelet Estimate Normal Polychromasia Slight Hypochromasia (manual) Slight Anisocytosis (manual) Slight Target Cells Slight ESR 67 H PT INR APTT Puncture Site pCO2 pO2 HCO3 ABG pH ABG Total CO2 ABG O2 Saturation ABG Base Excess ABG Hemoglobin ABG Carboxyhemoglobin POC ABG HHb (Measured) ABG Methemoglobin Satinder Test ABG Potassium VBG pH VBG pCO2 VBG HCO3 VBG Total CO2 VBG O2 Sat (Calc) VBG Base Excess VBG Potassium A-a O2 Difference Respiratory Index Hgb O2 Saturation Sodium 139 Chloride 105 Glucose Lactate Vent Mode Mechanical Rate FiO2 Tidal Volume PEEP Crit Value Called To Crit Value Called By Crit Value Read Back Blood Gas Notified Time Potassium 4.1 Carbon Dioxide 26 Anion Gap 12 BUN 37 H Creatinine 1.5 Est GFR ( Amer) 57 Est GFR (Non-Af Amer) 47 POC Glucose (mg/dL) 75 Random Glucose 71 L D Lactic Acid Calcium 7.0 L Phosphorus 3.5 Magnesium 1.6 Total Bilirubin 2.6 H Direct Bilirubin 2.2 H AST 2498 H ALT 362 H D Alkaline Phosphatase 1027 H Ammonia Total Creatine Kinase CK-MB (Mass) Troponin I C-React Prot High Sens NT-Pro-B Natriuret Pep Total Protein 6.4 Albumin 2.0 L Globulin 4.4 H Albumin/Globulin Ratio 0.5 L Lipase Arterial Blood Potassium Venous Blood Potassium Urine Color Urine Clarity Urine pH Ur Specific Agency Urine Protein Urine Glucose (UA) Urine Ketones Urine Blood Urine Nitrate Urine Bilirubin Urine Urobilinogen Ur Leukocyte Esterase Urine WBC (Auto) Urine RBC (Auto) Urine Bacteria Hyaline Casts Urine Opiates Screen Urine Methadone Screen Ur Barbiturates Screen Ur Phencyclidine Scrn Ur Amphetamines Screen U Benzodiazepines Scrn U Oth Cocaine Metabols U Cannabinoids Screen Hepatitis A IgM Ab Hep Bs Antigen Hep B Core IgM Ab Hepatitis C Antibody Negative Influenza Typ A,B (EIA) Blood Type Antibody Screen 03/01/18 03/01/18 05:55 05:55 WBC RBC Hgb Hct MCV MCH MCHC RDW Plt Count MPV Neut % (Auto) Lymph % (Auto) [place] % (Auto) Eos % (Auto) Baso % (Auto) Neut # (Auto) Lymph # (Auto) [place] # (Auto) Eos # (Auto) Baso # (Auto) Neutrophils % (Manual) Band Neutrophils % Lymphocytes % (Manual) Monocytes % (Manual) Platelet Estimate Polychromasia Hypochromasia (manual) Anisocytosis (manual) Target Cells ESR PT INR APTT Puncture Site pCO2 pO2 HCO3 ABG pH ABG Total CO2 ABG O2 Saturation ABG Base Excess ABG Hemoglobin ABG Carboxyhemoglobin POC ABG HHb (Measured) ABG Methemoglobin Satinder Test ABG Potassium VBG pH VBG pCO2 VBG HCO3 VBG Total CO2 VBG O2 Sat (Calc) VBG Base Excess VBG Potassium A-a O2 Difference Respiratory Index Hgb O2 Saturation Sodium Chloride Glucose Lactate Vent Mode Mechanical Rate FiO2 Tidal Volume PEEP Crit Value Called To Crit Value Called By Crit Value Read Back Blood Gas Notified Time Potassium Carbon Dioxide Anion Gap BUN Creatinine Est GFR ( Amer) Est GFR (Non-Af Amer) POC Glucose (mg/dL) Random Glucose Lactic Acid Calcium Phosphorus Magnesium Total Bilirubin Direct Bilirubin AST ALT Alkaline Phosphatase Ammonia Total Creatine Kinase CK-MB (Mass) Troponin I C-React Prot High Sens > 15.00 H NT-Pro-B Natriuret Pep Total Protein Albumin Globulin Albumin/Globulin Ratio Lipase Arterial Blood Potassium Venous Blood Potassium Urine Color Urine Clarity Urine pH Ur Specific Agency Urine Protein Urine Glucose (UA) Urine Ketones Urine Blood Urine Nitrate Urine Bilirubin Urine Urobilinogen Ur Leukocyte Esterase Urine WBC (Auto) Urine RBC (Auto) Urine Bacteria Hyaline Casts Urine Opiates Screen Urine Methadone Screen Ur Barbiturates Screen Ur Phencyclidine Scrn Ur Amphetamines Screen U Benzodiazepines Scrn U Oth Cocaine Metabols U Cannabinoids Screen Hepatitis A IgM Ab Negative Hep Bs Antigen Negative Hep B Core IgM Ab Negative Hepatitis C Antibody Negative Influenza Typ A,B (EIA) Blood Type Antibody Screen Assessment & Plan - Assessment and Plan (Free Text) Assessment: Palliative consult DNR/DNI, POLST on chart, PPS 10% I reviewed all medical records, diagnostic studies, examined patient in bed and discussed his care with the Patient is intubated, on Diprivan, unresponsive to verbal stimuli, but responsive to touch. FiO2 60%. O2 Sat 100%. Patient's BP is low, at 70'. HR 115. NaCl at 75 cc/hr. Patient's at bed side. We discussed goals of care. is very much alert of patient's condition and feels that he was dying despite all interventions applied. talked about her telling her he was afraid of , but wanted to peacefully when he time comes. Patient never wanted to be kept ali ve on life support. I discussed with process of life support removal. Even, she was very clear about allowing her natural , but at this time she felt overwhelmed to make any decisions regarding it. I supported her and we agreed to meet tomorrow for terminal extubation. 2:40 pm Patient's blood pressure continued dropping to the dangerous level that would [employer] Tx. I called and spoke about it. Doctor Law and Jes RN were present as well. The was very adamant regarding further agressive measures and wanted her to be allowed natural . We suggested that we may need to start Morphine drip to prevent further respiratory distress. agreed with all comfort measures. Impression * Metastatic disease * Colostomy in situ * Acute respiratory distress * Critically ill male with almost imminent * is advocating for comfort measures only and promotion of natural * POLST on chart indicates DNR/DNI Suggestions * Agree with Morphine for comfort * Agree with promotion of Natural * DNR/DNI Palliative care will sign off at this time [facility] planing 46 min
[2018-03-01 16:04] VITALS: BP 100/51; PULSE 114; RESP 21; TEMP 98.1; O2SAT 98
--- NOTE | 2018-03-01 16:40 | CP.PCM.PN ---
Subjective - Date & Time of Evaluation Date of Evaluation: 03/01/18 Time of Evaluation: 16:40 - Subjective Subjective: events noted, Palliative consult noted PT. FAMILY AT BEDSIDE. DNR/DNI, POLST PT TERMINALLY EXTUBATED, BREATHING ON OWN. Objective - Vital Signs/Intake and Output Vital Signs (last 24 hours): Temp Pulse Resp BP Pulse Ox 98.1 F 114 H 21 100/51 L 98 03/01/18 16:00 03/01/18 16:00 03/01/18 16:00 03/01/18 16:00 03/01/18 16:00 Intake and Output: 03/01/18 03/01/18 06:59 18:59 Intake Total 1382.8 728.7 Output Total 640 Balance 742.8 728.7 - Medications Medications: Current Medications Albuterol/Ipratropium (Duoneb 3 Mg/0.5 Mg (3 Ml) Ud) 3 ml INH RQ6 MARC Last Admin: 03/01/18 03:57 Dose: Not Given Heparin Sodium (Porcine) (Heparin) 5,000 units SC Q12 MARC Last Admin: 03/01/18 10:04 Dose: 5,000 units Metronidazole (Flagyl) 500 mg in 100 mls @ 100 mls/hr IVPB Q8H MARC; Protocol Last Admin: 03/01/18 10:00 Dose: 100 mls/hr Sodium Chloride (Sodium Chloride 0.9%) 1,000 mls @ 75 mls/hr IV .[id number] MARC Last Admin: 03/01/18 13:13 Dose: 75 mls/hr Propofol (Diprivan) 1,000 mg in 100 mls @ 2.245 mls/hr IV .Q24H PRN; Protocol PRN Reason: TITRATE PER MD ORDER Last Titration: 03/01/18 02:30 Dose: 10 mcg/kg/min, 4.491 mls/hr Cefepime HCl (Maxipime Iv 1 Gm Premix) 1 gm in 50 mls @ 100 mls/hr IVPB Q24H MARC; Protocol Last Admin: 02/28/18 22:41 Dose: 100 mls/hr Morphine Sulfate 250 mg/ (Sodium Chloride) 250 mls @ 5 mls/hr IV .Q24H PRN; Protocol PRN Reason: Pain, moderate (4-7) Last Admin: 03/01/18 15:16 Dose: 5 mg/hr, 5 mls/hr Oseltamivir Phosphate (Tamiflu Susp) 30 mg PO BID MARC; Protocol Stop: 03/02/18 18:01 Last Admin: 03/01/18 10:00 Dose: 5 ml Pantoprazole Sodium (Protonix Inj) 40 mg IVP Q12H MARC Last Admin: 03/01/18 05:12 Dose: 40 mg - Labs Labs: 03/01/18 05:55 03/01/18 05:55 PT 19.3 SECONDS (9.7-12.2) H 02/28/18 15:37 INR 1.8 02/28/18 15:37 APTT 39 SECONDS (21-34) H 02/28/18 15:37 - Constitutional Appears: No Acute Distress, Chronically Ill - Eye Exam Eye Exam: PERRL - ENT Exam ENT Exam: Mucous Membranes Moist - Respiratory Exam Respiratory Exam: Accessory Muscle Use, Prolonged Expiratory Phase, Rhonchi (B/L) - Cardiovascular Exam Cardiovascular Exam: Tachycardia, REGULAR RHYTHM, +S1, +S2 - GI/Abdominal Exam GI & Abdominal Exam: Soft, Normal Bowel Sounds - Extremities Exam Extremities Exam: absent: Calf Tenderness, Pedal Edema - Neurological Exam Neurological Exam: Altered - Skin Skin Exam: Normal Color, Warm Assessment and Plan (1) Respiratory failure Status: Acute (2) Pneumonia Status: Acute (3) Transaminitis Status: Acute (4) Metastatic colon cancer to liver Status: Acute (5) JENNY (acute kidney injury) Status: Acute - Assessment and Plan (Free Text) Plan: PT DNR/DNI. TERMINALLY EXTUBATED CONTINUE SUPPORTIVE CARE. DISCUSSED WITH STAFF. FAMILY AT BEDSIDE.
--- NOTE | 2018-03-01 17:37 | CP.PCM.PRO ---
Pronouncement of Note - Clinical Findings Physical Exam: No Response Verbal/Painful Stimuli, Absent Peripheral Puls es{Carotid & Femoral}, Absent Heart & Breath Sounds, No Pupillary Light Reflex, No Corneal Reflex, Pupils Fixed & Dilated, Absence of Vital Signs - Pronouncement Time Time of Pronouncement of : 17:15 Additional Comments: Patient evaulated with no corneal/gag reflex, nonresponsive to painful stimuli, no pulses, and cannot ascultate heart or breath sounds - Notifications Pronouncement Notifications: Family Notified, Atending Notified Otr Flatbed Driver Notified: No - Autopsy Autopsy Requested: No
--- NOTE | 2018-03-01 18:23 | CARD ---
APPROVED REPORT Date of service: 02/28/2018 EKG Measurement Heart [id number] <Conclusion> Normal sinus rhythm Nonspecific T wave abnormality Abnormal ECG
== END 2018-03-01 17:15 | DRG 871 ==
LOC: C.ER 15:09 → C.9E 16:34 → C.9I 17:12
PROVIDERS: ADMIT Internal Medicine Nephrology; ATTEND Internal Medicine Nephrology
PROC: 5A1935Z Respiratory Ventilation, Less than 24 Consecutive Hours (ICD-10-PCS; principal; 2018-02-28)
DX: A41.9 Sepsis, unspecified organism (principal); J69.0 Pneumonitis due to inhalation of food and vomit; J96.91 Respiratory failure, unspecified with hypoxia; J96.92 Respiratory failure, unspecified with hypercapnia; C78.00 Secondary malignant neoplasm of unspecified lung; C78.7 Secondary malignant neoplasm of liver and intrahepatic bile duct; C79.51 Secondary malignant neoplasm of bone; M84.48XA Pathological fracture, other site, initial encounter for fracture; N17.9 Acute kidney failure, unspecified; E16.2 Hypoglycemia, unspecified; E27.9 Disorder of adrenal gland, unspecified; E87.5 Hyperkalemia; F02.80 Dementia in other diseases classified elsewhere, unspecified severity, without behavioral disturbance, psychotic disturbance, mood disturbance, and anxiety; G30.9 Alzheimer's disease, unspecified; Z93.3 Colostomy status; Z90.49 Acquired absence of other specified parts of digestive tract; Z88.0 Allergy status to penicillin; Z85.038 Personal history of other malignant neoplasm of large intestine; Z66 Do not resuscitate; Z51.5 Encounter for palliative care